=== PATIENT | female | born 2000 | race Caucasian/White ===

== ENCOUNTER 2022-04-02 21:22 | Emergency (ER) | payer BC, MEDICAID, SELFPAY ==
[2022-04-02 21:32] VITALS: BP 133/95; PULSE 94; RESP 18; TEMP 36.3; O2SAT 97; BMI 31.6
--- NOTE | 2022-04-02 21:48 | ED.GENADULT ---
HPI - General Adult General Chief complaint: Unspecified Complaint, Adult Stated complaint: Sore throat, trouble breathing Time Seen by Provider: 04/02/22 21:38 History of Present Illness HPI narrative: Pt is a 21 year old who presents with pharyngitis, l sided ear pain, sinus pressure and cough for one week. No fever or chills. No SOB. Eating and drinking well. Describes symptoms as severe. No symptoms previously. Otherwise very healthy. Related Data Home Medications Medication Instructions Recorded Confirmed albuterol sulfate 90 mcg/actuation inhalation 04/02/22 aerosol inhaler aripiprazole 5 mg tablet mg 04/02/22 methylphenidate HCl 30 mg biphasic mg PO 04/02/22 50-50 capsule,extended release (Ritalin LA) montelukast 10 mg tablet mg 04/02/22 quetiapine 50 mg tablet mg 04/02/22 sertraline 100 mg tablet mg 04/02/22 sertraline 25 mg tablet mg 04/02/22 testosterone enanthate 200 mg/mL mg 04/02/22 intramuscular oil trazodone 150 mg tablet mg 04/02/22 Allergies Allergy/AdvReac Type Severity Reaction Status Date / Time ondansetron [From Zofran] AdvReac Verified 04/02/22 21:36 Review of Systems Status of ROS: Reports: 10 or more systems reviewed and unremarkable except as noted in History and below [facility] Social History Smoking Status: Former smoker How often do you have a drink containing alcohol: monthly or less AUDIT-C Alcohol total score: 1 Non-prescribed substance use: denies use Exam Narrative: Exam Narrative: EXAM GENERAL: Patient appears comfortable and well. EYES: No scleral icterus. ENT: Dullness left tympanic membrane is well as pharyngeal injection THYROID: no thyroid nodules or thyromegaly. LYMPH: No supraclavicular or cervical lymphadenopathy. SKIN: Visible skin seen during exam normal or with benign process only. EXT: No dependent lower extremity pedal edema. HEART: Regular rate and rhythm with no murmurs, rubs, or gallops. LUNGS: Clear to auscultation bilaterally with no crackles or wheezes. ABD: Soft, non tender, non distended. PSYCH: Good eye contact, speech is not pressured. Const: Vital Signs, click to edit/add: Vital Signs - 24 hr 04/02/22 21:32 Temperature 97.4 F L Pulse Rate [Left P ulse Oximeter] 94 Respiratory Rate 18 Blood Pressure [Ri ght Upper Arm] 133/95 H Pulse Oximetry 97 Oxygen Delivery Me thod Room Air Course Vital Signs Vital signs: Initial Vital Signs Temperature 97.4 F L 04/02/22 21:32 Temperature Source Temporal Artery Scan 04/02/22 21:32 Pulse Rate 94 04/02/22 21:32 Respiratory Rate 18 04/02/22 21:32 Blood Pressure 133/95 H 04/02/22 21:32 Blood Pressure Mean 107 04/02/22 21:32 Blood Pressure Position Sitting 04/02/22 21:32 Pulse Oximetry 97 04/02/22 21:32 Oxygen Delivery Method 04/02/22 21:32 Vital Signs Temperature 97.4 F L 04/02/22 21:32 Pulse Rate 94 04/02/22 21:32 Respiratory Rate 18 04/02/22 21:32 Blood Pressure 133/95 H 04/02/22 21:32 Pulse Oximetry 97 04/02/22 21:32 Oxygen Delivery Method 04/02/22 21:32 Temperature 97.4 F L 04/02/22 21:32 Pulse Rate 94 04/02/22 21:32 Respiratory Rate 18 04/02/22 21:32 Blood Pressure 133/95 H 04/02/22 21:32 Pulse Oximetry 97 04/02/22 21:32 Oxygen Delivery Method 04/02/22 21:32 Discharge Plan Discharge Clinical Impression: Acute upper respiratory infection Patient Disposition: Home, Self-Care Condition: Stable Instructions: Upper Respiratory Infection (ED) Additional Instructions: Zithromax as directed Activity Level: No Restrictions Discharge Diet: Regular Prescriptions: No Action sertraline 100 mg tablet Label Comments: TAKE 1 TABLET BY MOUTH EVERY DAY trazodone 150 mg tablet Label Comments: TAKE 1 TABLET BY MOUTH EVERYDAY AT BEDTIME sertraline 25 mg tablet Label Comments: TAKE ONE (1) TABLET BY MOUTH DAILY ALONG WITH 100MG montelukast 10 mg tablet Label Comments: TAKE 1 TABLET BY MOUTH EVERYDAY AT BEDTIME testosterone enanthate 200 mg/mL oil albuterol sulfate 90 mcg/actuation HFA aerosol inhaler INHALATION Label Comments: INHALE 1 TO 2 PUFFS BY MOUTH EVERY 6 HOURS IF NEEDED FOR WHEEZING 1ST CHOICE. aripiprazole 5 mg tablet Label Comments: TAKE 1 TABLET BY MOUTH EVERY DAY methylphenidate HCl [Ritalin LA] 30 mg capsule,ER biphasic 50-50 PO Label Comments: TAKE 1 CAPSULE BY MOUTH EVERY DAY quetiapine 50 mg tablet Label Comments: TAKE 1 TABLET BY MOUTH EVERY DAY Stand Alone Forms: [facility] Info Instructions
== END 2022-04-02 22:05 | disposition home or self-care (01) ==
LOC: ED 21:57
PROVIDERS: Emergency Provider Internal Medicine
DX: J06.9 Acute upper respiratory infection, unspecified (principal)
CPT/HCPCS: 99283

== ENCOUNTER 2022-04-06 22:05 | Emergency (ER) | payer BC, MEDICAID, SELFPAY ==
[2022-04-06 22:22] VITALS: BP 113/81; PULSE 69; RESP 18; TEMP 36.4; O2SAT 97; BMI 30.7
--- NOTE | 2022-04-06 23:28 | ED.GENADULT ---
HPI - General Adult General Time Seen by Provider: 23:29 Date Seen: 04/06/22 Chief complaint: Sore Throat Stated complaint: Sore throat worse Time Seen by Provider: 04/06/22 22:30 Source: patient Mode of arrival: ambulatory History of Present Illness HPI narrative: 21-year-old patient who presents today with upper respiratory symptoms. This started about 5 days ago, had a negative COVID test at home at that time. Was seen in the clinic and started on azithromycin for possible sinus infection. Today is the last day of that and symptoms are not improving. Continued ear pressure, sinus congestion, sore throat and hoarseness, as well as cough. Some nausea vomiting. Intermittent diarrhea. No fevers. Related Data Home Medications Medication Instructions Recorded Confirmed albuterol sulfate 90 mcg/actuation inhalation 04/02/22 aerosol inhaler aripiprazole 5 mg tablet mg 04/02/22 methylphenidate HCl 30 mg biphasic mg PO 04/02/22 50-50 capsule,extended release (Ritalin LA) montelukast 10 mg tablet mg 04/02/22 quetiapine 50 mg tablet mg 04/02/22 sertraline 100 mg tablet mg 04/02/22 sertraline 25 mg tablet mg 04/02/22 testosterone enanthate 200 mg/mL mg 04/02/22 intramuscular oil trazodone 150 mg tablet mg 04/02/22 Allergies Allergy/AdvReac Type Severity Reaction Status Date / Time ondansetron [From Zofran] AdvReac Verified 04/02/22 21:36 Review of Systems Status of ROS: Reports: 10 or more systems reviewed and unremarkable except as noted in History and below PFSH PFSH Social History Smoking Status: Former smoker Do you use any of these nicotine containing products: None Second hand tobacco smoke exposure: No How often do you have a drink containing alcohol: monthly or less How many standard drinks containing alcohol do you have on a typical day: 1 or 2 How often do you have six or more drinks on one occasion: Never AUDIT-C Alcohol total score: 1 Non-prescribed substance use: denies use Exam Const: Vital Signs, click to edit/add: Vital Signs - 24 hr 04/06/22 22:22 Temperature 97.6 F Pulse Rate [Right Pulse Oximeter] 69 Respiratory Rate 18 Blood Pressure [Ri ght Upper Arm] 113/81 Pulse Oximetry 97 Oxygen Delivery Me thod Room Air Documenting provider has reviewed patient's vital signs: yes Common normals: no apparent distress, oriented x3, alert and well nourished HENMT: Common normals: normocephalic, head/scalp atraumatic, external ears normal and external nose normal Head and scalp: normocephalic and atraumatic Nose: external nose normal External ear: external ears normal External auditory canal: other (Cerumen bilaterally) Tympanic membrane: other (Bilateral tympanic membranes bulging and mildly erythematous) Eye: Common normals: PERRL and conjunctivae normal Conjunctiva: conjunctiva(e) normal Pupil: PERRL Neck & C-Spine: Common normals: full ROM, no lymphadenopathy and supple Chest: Common normals: palpation of chest normal Resp: Common normals: normal respiratory effort and clear to auscultation bilaterally Auscultation: clear to auscultation bilaterally Cardio: Common normals: regular rate, regular rhythm and no murmurs Rate: regular rate Rhythm: regular rhythm GI: Common normals: Normal to inspection, nondistended, normoactive bowel sounds present, soft to palpation and non-tender Palpation: soft : Common normals: no CVA tenderness Bladder/kidney exam: no CVA tenderness Back & Pelvis: Common normals: no CVA tenderness and thoracic and lumbar spine normal to inspection Extremity: Common normals: normal to inspection, full ROM and no pedal edema Neuro: Common normals: oriented x3, CN's II-XII intact bilaterally and no focal motor deficits Sensorium/orientation: alert Psych: Common normals: mental status grossly normal Skin: Common normals: no rashes or lesions noted General skin exam: no rashes or lesions noted Course Course Hospital Course: Patient seen examined, prior records reviewed. Differential diagnosis includes but not limited to upper respiratory infection, sinusitis, otitis media, serous otitis, COVID, influenza. Patient with upper respiratory symptoms not improved after azithromycin. Multi-system upper respiratory infection symptoms are more consistent with viral process. Patient will be started on prednisone and continue symptom management. Vital Signs Vital signs: Initial Vital Signs Temperature 97.6 F 04/06/22 22:22 Temperature Source Temporal Artery Scan 04/06/22 22:22 Pulse Rate 69 04/06/22 22:22 Pulse Rhythm 04/06/22 22:22 Pulse Strength 3+ Normal 04/06/22 22:22 Respiratory Rate 18 04/06/22 22:22 Blood Pressure 113/81 04/06/22 22:22 Blood Pressure Mean 91 04/06/22 22:22 Blood Pressure Position Supine 04/06/22 22:22 Pulse Oximetry 97 04/06/22 22:22 Oxygen Delivery Method 04/06/22 22:22 Vital Signs Temperature 97.6 F 04/06/22 22:22 Pulse Rate 69 04/06/22 22:22 Respiratory Rate 18 04/06/22 22:22 Blood Pressure 113/81 04/06/22 22:22 Pulse Oximetry 97 04/06/22 22:22 Oxygen Delivery Method 04/06/22 22:22 Temperature 97.6 F 04/06/22 22:22 Pulse Rate 69 04/06/22 22:22 Respiratory Rate 18 04/06/22 22:22 Blood Pressure 113/81 04/06/22 22:22 Pulse Oximetry 97 04/06/22 22:22 Oxygen Delivery Method 04/06/22 22:22 Medical Decision Making Medical Records Medical records reviewed: Yes I reviewed the patient's medical records Lab Data Lab results reviewed: Yes I reviewed the patient's lab results Discharge Plan Discharge Clinical Impression: Acute upper respiratory infection Patient Disposition: Home, Self-Care Condition: Stable Instructions: Upper Respiratory Infection (DC) Additional Instructions: Continue Tylenol and ibuprofen for body aches. Continue nasal decongestants, Tylenol ibuprofen as needed. Zofran for nausea vomiting. Activity Level: No Restrictions Discharge Diet: Regular Prescriptions: No Action sertraline 100 mg tablet Label Comments: TAKE 1 TABLET BY MOUTH EVERY DAY trazodone 150 mg tablet Label Comments: TAKE 1 TABLET BY MOUTH EVERYDAY AT BEDTIME sertraline 25 mg tablet Label Comments: TAKE ONE (1) TABLET BY MOUTH DAILY ALONG WITH 100MG montelukast 10 mg tablet Label Comments: TAKE 1 TABLET BY MOUTH EVERYDAY AT BEDTIME testosterone enanthate 200 mg/mL oil albuterol sulfate 90 mcg/actuation HFA aerosol inhaler INHALATION Label Comments: INHALE 1 TO 2 PUFFS BY MOUTH EVERY 6 HOURS IF NEEDED FOR WHEEZING 1ST CHOICE. aripiprazole 5 mg tablet Label Comments: TAKE 1 TABLET BY MOUTH EVERY DAY methylphenidate HCl [Ritalin LA] 30 mg capsule,ER biphasic 50-50 PO Label Comments: TAKE 1 CAPSULE BY MOUTH EVERY DAY quetiapine 50 mg tablet Label Comments: TAKE 1 TABLET BY MOUTH EVERY DAY Follow Up/Referrals: Provider,Not a Local [Primary Care Provider] - Stand Alone Forms: [facility] Info Instructions
== END 2022-04-07 00:21 | disposition home or self-care (01) ==
PROVIDERS: Emergency Provider Family Medicine
DX: J06.9 Acute upper respiratory infection, unspecified (principal)
CPT/HCPCS: 99283; 99284

== ENCOUNTER 2022-06-09 05:16 | Outpatient (CLI) | payer BC, MEDICAID, SELFPAY ==
--- OUTSIDE RECORDS SUMMARY | 2022-06-12 11:10 | XMS_ITS | Encounter Summary ---
:2000 Author Organization [employer] Address [address] [address] Phone Care Team Providers Name Role Phone Elsewhere, Pcp Primary Care Provider Unavailable Encounter Details Date Type Department Care Team Description 10/20/2015 Scanned - Medical OS FILMS DEPARTMENT Abstract, Provid er, Reports Social History Tobacco Use Types Packs/Day Years Used Date Never Assessed Sex Assigned at Date Recorded Not on file documented as of this encounter Functional Status Functional Status Response Date of Assessment Patient's Vision Adequate to Yes - wears contacts, pt is 03/2016 Safely Complete Daily Activities nearsighted documented as of this encounter Plan of Treatment Not on filedocumented as of this encounter Procedures Procedure Name Priority Date/Time Associated Diagnosis Comme nts VALPROIC ACID Routine 10/14/2015 documented in this encounter Results VALPROIC ACID (10/14/2015) Narrative This result has an attachment that is no t available. Provider Abstract MD [facility] ORDERABLES documented in this encounter Visit Diagnoses Not on filedocumented in this encounter Care Teams Sales Rep Relationship Specialty Start Date End Date Elsewhere, Pcp PCP - General 10/03/15 documented as of this encounter
--- OUTSIDE RECORDS SUMMARY | 2022-06-12 11:10 | XMS_ITS | Encounter Summary ---
:2000 Author Organization [employer] Address [address] [address] Phone Care Team Providers Name Role Phone Elsewhere, Pcp Primary Care Provider Unavailable Reason for Visit Reason Comments Update [facility] [place] Encounter Details Date Type Department Care Team Description 10/03/2015 Abstract [facility] HIS Abstract, Update ([facility] MD Sidney [facility] [place] [place] [address] [place]) [phone] Social History Tobacco Use Types Packs/Day Years Used Date Never Assessed Sex Assigned at Date Recorded Not on file documented as of this encounter Functional Status Functional Status Response Date of Assessment Patient's Vision Adequate to Yes - wears contacts, pt is 03/2016 Safely Complete Daily Activities nearsighted documented as of this encounter Plan of Treatment Not on filedocumented as of this encounter Visit Diagnoses Not on filedocumented in this encounter Care Teams Detective Narcotics And Vice Relationship Specialty Start Date End Date Elsewhere, Pcp PCP - General 10/03/15 documented as of this encounter
--- OUTSIDE RECORDS SUMMARY | 2022-06-12 11:10 | XMS_ITS | Encounter Summary ---
:2000 Author Organization [employer] Address [address] [address] Phone Care Team Providers Name Role Phone Elsewhere, Pcp Primary Care Provider Unavailable Reason for Visit Reason Comments Update [facility] [place] Encounter Details Date Type Department Care Team Description 06/25/2015 Abstract [facility] HIS Abstract, Update ([facility] [address] [place] [address] MD Sidney [facility] [place] [address] [place]) [phone] Social History Tobacco Use Types Packs/Day Years Used Date Never Assessed Sex Assigned at Date Recorded Not on file documented as of this encounter Plan of Treatment Not on filedocumented as of this encounter Visit Diagnoses Not on filedocumented in this encounter Care Teams Public Policy Analyst Relationship Specialty Start Date End Date Elsewhere, Pcp PCP - General 10/03/15 documented as of this encounter
--- OUTSIDE RECORDS SUMMARY | 2022-06-12 11:10 | XMS_ITS | Clinical Summary ---
:2000 Author Organization [employer] Address [address] [address] Phone Care Team Providers Name Role Phone Elsewhere, Pcp Primary Care Provider Unavailable Allergies No known active allergies Medications Medication Sig Dispensed Refills Start Date End Date Status gabapentin (NEURONTIN) Take 1 Cap by 0 10/07/2015 Active 100 MG mouth two times a capsuleIndications: day. Indications: Aggressive Behavior, Aggressive Agitation Behavior, Agitation traZODone (DESYREL) 50 Take 0.5-1 Tabs by 30 Tab 1 10/07/19 16 Active MG tabletIndications: mouth at bedtime. Insomnia Indications: Trouble Sleeping OLANZapine (ZYPREXA Take 1 Tab by 10 Tab 1 10/07/2015 Active ZYDIS) 5 MG mouth one time a disintegrating day as needed for tabletIndications: Other (Agitation). Irritability, Indications: Aggressive Rages Irritability, Aggressive Rages divalproex ER Take 1 Tab by 30 Tab 1 10/07/2015 A ctive (DEPAKOTE-ER) 500 MG mouth at bedtime. 24 hour Swallow whole; do tabletIndications: not crush or chew. 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 Social anxiety disorder 09/21/2015 Pseudoseizure Depression 10/03/2015 Altered mental status 06/25/2015 Postconcussive syndrome 05/21/2015 Family History Medical History Relation Comments Anxiety Other Family hx. Depression Other Family hx. Relation Status Comments Other Social History Tobacco Use Types Packs/Day Years Used Date Never Assessed Sex Assigned at Date Recorded Not on file Obstetrics History Last Filed Vital Signs Vital Sign Reading Time Taken Comments Blood Pressure 92/53 10/07/2015 7:15 PM DIETETIC TECH Pulse 77 10/07/2015 7:15 PM DIETETIC TECH Temperature 36.6 ??C (97.9 ??F) 10/07/2015 7:15 PM DIETETIC TECH Respiratory Rate 16 10/07/2015 9:00 PM DIETETIC TECH Oxygen Saturation 100% 10/06/2015 8:58 AM DIETETIC TECH Inhaled Oxygen Concentration - - Weight 49.7 kg (109 lb 9.1 oz) 10/03/2015 2:19 PM DIETETIC TECH Height 165.4 cm (5' 5.12) 10/03/2015 2:19 PM DIETETIC TECH Body Mass Index 18.17 10/03/2015 2:19 PM DIETETIC TECH Plan of Treatment Health Maintenance Due Date Last Done Comments Cervical Cancer Screening 2000 Last pap w/ HPV Testing 2000 Last pap w/o HPV Testing 2000 COVID-19 Vaccine (#1) 2000 HPV Vaccine female (Standing 2009 Order) (1 - 2-dose series) Chlamydia Screening 2016 PERTUSSIS (Standing Order) 2019 TETANUS (Standing Order) 2019 Influenza Vaccine Seasonal 04/26/2022 (Standing Order) (#1) Pneumococcal/PCV Vaccine: Aged Out No ilda donnell eligible based on Pediatrics (0-5 yrs) and At-Risk patient's age to complete this Patients (6-64 yrs) (Standing to pic Order) Insurance Payer Benefit Plan Subscriber ID Effective Phone Address Typ e / Group Dates BCBS OTHER BCBS OTHER [id number] 2019-Prese [address] [place] [address] BCBS OTHER BCBS OTHER [id number] 2019-Prese [address] [place] [address] Care Teams Vrt Mechanic Relationship Specialty Start Date End Date Elsewhere, Pcp PCP - General 10/03/15
--- OUTSIDE RECORDS SUMMARY | 2022-06-12 11:10 | XMS_ITS | Encounter Summary ---
:2000 Author Organization [employer] Address [address] [address] Phone Care Team Providers Name Role Phone Elsewhere, Pcp Primary Care Provider Unavailable Reason for Visit Reason Comments Update [employer] [facility] [employer] Encounter Details Date Type Department Care Team Description 09/21/2015 Abstract [facility] HIS Abstract, Update ([employer] [facility] [address] [facility] Provider, [place] [address] Social History Tobacco Use Types Packs/Day Years Used Date Never Assessed Sex Assigned at Date Recorded Not on file documented as of this encounter Plan of Treatment Not on filedocumented as of this encounter Visit Diagnoses Not on filedocumented in this encounter Care Teams Sweatband Drummer Relationship Specialty Start Date End Date Elsewhere, Pcp PCP - General 10/03/15 documented as of this encounter
--- OUTSIDE RECORDS SUMMARY | 2022-06-12 11:10 | XMS_ITS | Encounter Summary ---
:2000 Author Organization [employer] Address [address] [address] Phone Care Team Providers Name Role Phone Elsewhere, Pcp Primary Care Provider Unavailable Reason for Visit Reason Comments Update [facility] Encounter Details Date Type Department Care Team Description 05/21/2015 Abstract [facility] HIS Abstract, Update ([facility] [address] [facility] Provider, [place] [address] [facility]) [phone] Social History Tobacco Use Types Packs/Day Years Used Date Never Assessed Sex Assigned at Date Recorded Not on file documented as of this encounter Plan of Treatment Not on filedocumented as of this encounter Visit Diagnoses Not on filedocumented in this encounter Care Teams Manufacturing Storeperson Relationship Specialty Start Date End Date Elsewhere, Pcp PCP - General 10/03/15 documented as of this encounter
--- OUTSIDE RECORDS SUMMARY | 2022-06-12 11:10 | XMS_ITS | Encounter Summary ---
:2000 Author Organization [employer] Address [address] [address] Phone Care Team Providers Name Role Phone Elsewhere, Pcp Primary Care Provider Unavailable Reason for Visit Reason Comments External Lab Results Encounter Details Date Type Department Care Team Description 02/27/2017 Abstract [facility] HIS Abstract, Provider, External Lab Results [address] [facility] [place] [address] Social History Tobacco Use Types [...] Name Priority Date/Time Associated Diagnosis Comme nts EXTERNAL COMPR MET Routine 02/25/2017 Results f or this PANEL procedure are i n the results section . EXTERNAL HEMOGRAM Routine 02/25/2017 Results fo r this procedure are i n the results section . EXTERNAL TSH Routine 02/25/2017 Results for thi s procedure are i n the results section . documented in this encounter Results EXTERNAL TSH (02/25/2017) athologist Signature EXTERNAL TSH 2.370 0.358 - OUTSIDE 3.740 LABORATORY uIU/mL Provider Abstract MD [facility] Performing Organization Address City/State/ZIP Code Phon e Number OUTSIDE LABORATORY (ABNORMAL) EXTERNAL COMPR MET PANEL (02/25/2017) athologist Signature EXTERNAL SODIUM 141 140 - 148 OUTSIDE mmol/L LABORATORY EXTERNAL 3.9 3.6 - 5.2 OUTSIDE POTASSIUM mmol/L LABORATORY EXTERNAL 104 100 - 108 OUTSIDE CHLORIDE mmol/L LABORATORY EXTERNAL CO2 24 21 - 32 OUTSIDE mmol/L LABORATORY EXTERNAL 80 74 - 106 OUTSIDE GLUCOSE mg/dL LABORATORY EXTERNAL BUN 10 7 - 18 OUTSIDE mg/dL LABORATORY EXTERNAL 0.7 0.6 - 1.0 OUTSIDE CREATININE mg/dL LABORATORY EXTERNAL 8.6 8.5 - 10.1 OUTSIDE CALCIUM mg/dL LABORATORY EXTERNAL 23 12 - 78 OUTSIDE ALT(SGPT) U/L LABORATORY EXTERNAL 38 (A) 15 - 37 OUTSIDE AST(SGOT) U/L LABORATORY Provider Abstract MD [facility] Performing Organization Address City/State/ZIP Code Phon e Number OUTSIDE LABORATORY EXTERNAL HEMOGRAM (02/25/2017) P athologist Signature EXTERNAL WBC 9.7 4.5 - 11.0 OUTSIDE K/uL LABORATORY Comment: (see [facility] lab scanned on 02/24/2017) EXTERNAL RBC 4.81 3.30 - 5.50 M/uL OUTSIDE LA BORATORY EXTERNAL HGB 14.7 12.0 - 15.0 g/dL OUTSIDE LA BORATORY EXTERNAL HCT 41.8 36.0 - 48.0 % OUTSIDE LABOR ATORY EXTERNAL MCV 87 80 - 98 fL OUTSIDE LABORATO RY EXTERNAL MCH 31 27 - 31 pg OUTSIDE LABORATO RY EXTERNAL MCHC 35 32 - 36 % OUTSIDE LABORATO RY EXTERNAL RDW OUTSIDE LABORATOR Y EXTERNAL PLATELETS 158 150 - 400 K/uL OUTSID E LABORATORY Provider Abstract MD [facility] Performing Organization Address City/State/ZIP Code Phon e Number OUTSIDE LABORATORY documented in this encounter Visit Diagnoses Not on filedocumented in this encounter Care Teams Over Short And Damage Clerk Relationship Specialty Start Date End Date Elsewhere, Pcp PCP - General 10/03/15 documented as of this encounter
--- OUTSIDE RECORDS SUMMARY | 2022-06-12 11:10 | XMS_ITS | Encounter Summary ---
:2000 Author Organization [employer] Address [address] [place] [address] Phone Care Team Providers Name Role Phone Elsewhere, Pcp Primary Care Provider Unavailable Encounter Details Date Type Department Care Team Description 02/27/2017 Scanned - Medical [facility] HIS Abstract, Reports [address] [facility] [facility] Provider, [place] [address] Social History Tobacco Use Types [...] Name Priority Date/Time Associated Diagnosis Comme nts OUTSIDE LAB Routine 02/24/2017 documented in this encounter Results OUTSIDE LAB (02/24/2017) Narrative This result has an attachment that is no t available. Provider Abstract MD [facility] documented in this encounter Visit Diagnoses Not on filedocumented in this encounter Care Teams Alley Tender Relationship Specialty Start Date End Date Elsewhere, Pcp PCP - General 10/03/15 documented as of this encounter
== END 2022-06-09 05:17 | disposition home or self-care (01) ==
PROVIDERS: PCP Family Medicine; Visit Provider Family Medicine
DX: J45.901 Unspecified asthma with (acute) exacerbation (principal); R06.09 Other forms of dyspnea; R51.9 Headache, unspecified
CPT/HCPCS: A0425; A0427

== ENCOUNTER 2022-06-09 05:41 | Emergency (ER) | payer BC, MEDICAID, SELFPAY ==
[2022-06-09 05:45] VITALS: BP 116/65; PULSE 107; RESP 22; TEMP 36.7; O2SAT 89; BMI 29.1
--- NOTE | 2022-06-09 06:10 | CRLHL7_ITS ---
For Patients: As a result of the Century Cures Act, medical imaging exams and procedure reports are released immediately into your electronic medical record. You may view this report before your referring provider. If you have questions, please contact your health care provider. INDICATION: Flare-up of asthma TECHNIQUE: Chest 2 views. COMPARISON: October 29, 2020 FINDINGS: Cardiovascular and mediastinum: Heart size and vasculature are normal in caliber and appearance. Mediastinum is within normal limits. Lungs and pleural spaces: Lungs are hyperexpanded. Minimal patchy opacity in the left lower lobe. No sign of pleural effusion. No pneumothorax. Bones and soft tissues: No significant findings. IMPRESSION: Hyperexpanded lungs. Minimal opacity in the left lower lobe may represent atelectasis or infection. Dictated by Anastasia Busby MD @ 06/09/2022 6:46:19 AM (Electronically Signed)
--- NOTE | 2022-06-09 06:18 | ED_ITS ---
HPI - SOB/Dyspnea General Chief Complaint: Shortness of Breath/Dyspnea Stated Complaint: Short of breath Time Seen by Provider: 06/09/22 05:58 Source: patient Limitations: no limitations History of Present Illness HPI Narrative: 22-year-old female to male transition patient presents with dyspnea they became severe this morning, waking him from sleep. Has had upper respiratory infection symptoms with congestion for the past week. No fevers. Cough became productive of mucousy sputum yesterday. Patient has a history of known asthma, states diagnosed about 4 years ago. Is on Singulair and Breo Ellipta for maintenance. States that he ran out of his albuterol inhaler a few days ago and has not been able to get a refill thus yet. Awoke with severe symptoms this morning, unable to catch breath. Did briefly pass out but significant other finished loading the albuterol when patient came to rather quickly was able to start administering albuterol after they had called 911. By the time the neb was finished an EMS arrived, moderate improvement in symptoms already. O2 sats were 92% upon arrival for EMS team. No recent use of steroids, has tolerated these well in the past and reports that these work well. States that when the steroids are stopped, asthma symptoms do tend to worsen. Has never been on Xolair injections or any similar treatment. No prior history of DVT or PE. No pertinent travel or new exposures. Does have a marijuana prescription card.. I do not have any recent spirometry or other similar breathing test review. Patient does endorse a little bit of left-sided chest pain, nonexertional that started yesterday and is intermittent. No prior history of cardiac disease. No prior intubations for asthma. Past medical history is notable for depression, on 3 agents for this, severe persistent asthma. Home medications Breo Ellipta albuterol p.r.n. trazodone weekly testosterone injections Abilify sertraline and Singulair. Primary care provider is Dr. Jacobs at [facility]. Socially with no pertinent travel, marijuana exposure as stated above. Denies any pertinent surgical history. Related Data Home Medications Medication Instructions Recorded Confirmed albuterol sulfate 90 mcg/actuation inhalation 04/02/22 aerosol inhaler aripiprazole 5 mg tablet mg PO DAILY 04/02/22 methylphenidate HCl 30 mg biphasic mg PO 04/02/22 50-50 capsule,extended release (Ritalin LA) montelukast 10 mg tablet mg 04/02/22 quetiapine 50 mg tablet mg 04/02/22 sertraline 100 mg tablet mg 04/02/22 sertraline 25 mg tablet mg 04/02/22 testosterone enanthate 200 mg/mL mg 04/02/22 intramuscular oil trazodone 150 mg tablet mg 04/02/22 Previous Rx's Medication Instructions Recorded albuterol sulfate 90 mcg/actuation 2 puff inhalation 6XD PRN 06/09/22 aerosol inhaler shortness of breath or wheezing #8.5 grams ipratropium 0.5 mg-albuterol 3 mg 3 ml inhalation Q6H PRN #90 mL 06/09/22 (2.5 mg base)/3 mL nebulization soln levofloxacin 500 mg tablet 500 mg PO DAILY #7 tabs 06/09/22 prednisone 20 mg tablet 20 mg PO BID #10 tabs 06/09/22 Allergies Allergy/AdvReac Type Severity Reaction Status Date / Time ondansetron [From Zofran] AdvReac Verified 06/09/22 05:51 Review of Systems Narrative: Notable for the generalized, respiratory and chest symptoms as above, otherwise denies times 12. PFSH PFSH Social History Smoking Status: Former smoker Do you use any of these nicotine containing products: None Second hand tobacco smoke exposure: No How often do you have a drink containing alcohol: monthly or less How many standard drinks containing alcohol do you have on a typical day: 1 or 2 How often do you have six or more drinks on one occasion: Never AUDIT-C Alcohol total score: 1 Non-prescribed substance use: marijuana (any form) Non-prescribed substance use details: medical marijuana card Exam Const: Vital Signs, click to edit/add: Vital Signs - 24 hr 06/09/22 05:45 06/09/22 06:40 06/09/22 07:00 Temperature 98.1 F Pulse Rate [Left P ulse Oximeter] 107 H 107 H 95 Respiratory Rate 22 20 20 Blood Pressure [Ri ght Upper Arm] 116/65 102/67 102/67 Pulse Oximetry 89 96 91 Oxygen Delivery Me thod Room Air Room Air Other: Mildly anxious but behavior appropriate, respectful. Does not appear to be working significantly to breathe at rest. Is able to speak full sentences. HENMT: Common normals: normocephalic and TM's normal bilaterally Head and scalp: normocephalic Tympanic membrane: TM's normal bilaterally Mouth: oral and palatal mucosa normal Throat: posterior oropharynx normal Eye: Common normals: conjunctivae normal and no scleral icterus Conjunctiva: conjunctiva(e) normal Neck & C-Spine: Common normals: full ROM and no lymphadenopathy Resp: Other: Mildly increased respiratory effort with prolongation of expiration about a 3 1 ratio. Expiratory wheeze throughout, overall fairly poor air movement but no obvious crackles. Cardio: Common normals: regular rate, regular rhythm, S1 normal heart sound, S2 normal heart sound, no murmurs and peripheral pulses 2+ throughout Rate: regular rate Rhythm: regular rhythm Heart sounds: S1 normal and S2 normal Peripheral pulses: pulses 2+ throughout GI: Common normals: Normal to inspection, nondistended, normoactive bowel sounds present, soft to palpation, non-tender and no hepatosplenomegaly Palpation: soft and no hepatosplenomegaly Extremity: Common normals: normal capillary refill and no pedal edema Neuro: Speech: speech normal Motor exam: no tremor noted and no movement abnormalities noted Psych: Common normals: speech normal Attitude: engaged Activity/motor behavior: appropriate eye contact Speech: normal speech Insight: insight good Judgement: judgment good Skin: Common normals: no rashes or lesions noted General skin exam: no rashes or lesions noted Course Course Hospital Course: Oxygen saturations varying between 89-93 during my interview with patient. No significant tachypnea. Will start with IM Solu-Medrol, DuoNeb, chest x-ray and swabs. EKG is performed and reassuring. Will re-evaluate. If needed, can place IV start magnesium infusion, consider hospitalization if not improving Vital Signs Vital signs: Initial Vital Signs Temperature 98.1 F 06/09/22 05:45 Temperature Source Temporal Artery Scan 06/09/22 05:45 Pulse Rate 107 H 06/09/22 05:45 Respiratory Rate 22 06/09/22 05:45 Blood Pressure 116/65 06/09/22 05:45 Blood Pressure Mean 82 06/09/22 05:45 Blood Pressure Position Semi-Fowlers 06/09/22 05:45 Pulse Oximetry 89 06/09/22 05:45 Oxygen Delivery Method 06/09/22 05:45 Vital Signs Temperature 98.1 F 06/09/22 05:45 Pulse Rate 107 H 06/09/22 05:45 Respiratory Rate 22 06/09/22 05:45 Blood Pressure 116/65 06/09/22 05:45 Pulse Oximetry 89 06/09/22 05:45 Oxygen Delivery Method 06/09/22 05:45 Temperature 98.1 F 06/09/22 05:45 Pulse Rate 95 06/09/22 07:00 Respiratory Rate 20 06/09/22 07:00 Blood Pressure 102/67 06/09/22 07:00 Pulse Oximetry 91 06/09/22 07:00 Oxygen Delivery Method 06/09/22 07:00 MDM - SOB/Dyspnea MDM Narrative Medical decision making narrative: Re-evaluation 7:10 a.m.: Patient with improved aeration and O2 sats 92% after steroids and DuoNeb. Radiology and lab results discussed. Will start Levaquin. Will need antibiotics and oral prednisone upon discharge as well. Plan of care discussed, work note written. Patient feeling markedly better. See discharge instructions. Differential Diagnosis Differential diagnosis: Likely acute exacerbation of chronic obstructive airways disease, community acquired pneumonia, asthma with exacerbation and pulmonary embolism Medical Records Attestation: I reviewed the patient's medical records. Lab Data Attestation: I reviewed the patient's lab results. Lab results narrative: Negative for COVID, influenza Labs: Lab Results 06/09/22 Range/Units 06:10 SARS-CoV-2 (PCR) Negative SARS-CoV-2 (Negative) Influenza Type A (PCR) Negative PCR FLU A (Negative) Influenza Type B (PCR) Negative PCR FLU B (Negative) Imaging Data Chest x-ray: Attestation: I have reviewed the pertinent imaging results. My impression: Hyperinflation with asthma and left lower lobe infiltrate per my interpretation, confirmed with radiology report ECG Data Interpretation: EKG showing normal sinus rhythm with no significant ST or T-wave abnormalities, good R-wave progression, normal axis. No signs of ischemia Discharge Plan Discharge Clinical Impression: Community acquired pneumonia, Asthma with acute exacerbation Patient Disposition: Home w/ Parent or Adult Condition: Improved Instructions: Asthma (ED), Community Acquired Pneumonia (DC) Additional Instructions: There are signs of new pneumonia on the left side flaring up her asthma. It is important you continue all of your inhalers. I have sent a refill of the albuterol to use as needed as well. We will start you on prednisone 20 mg twice daily, your next dose will be this afternoon. For antibiotics, I recommend levofloxacin 500 mg once daily. You already been given today's dose and will need your next dose 1st thing tomorrow morning. This will be for 7 days. I would like for you to make a followup with her primary care provider Saturday or Saturday to make sure that things are improving. Keep using her albuterol nebulizer as often as needed, up to every hour if necessary. Come back to the emergency department if these treatments are not working, he was struggling to breathe and or you have significant worsening of symptoms. Activity Level: Activity as Tolerated Discharge Diet: Regular Prescriptions: New levofloxacin 500 mg tablet 500 mg PO DAILY Qty: 7 0RF Rx Instructions: Start 10/16 am albuterol sulfate 90 mcg/actuation HFA aerosol inhaler 2 puff inhalation 6XD PRN (Reason: shortness of breath or wheezing) Qty: 8.5 1RF prednisone 20 mg tablet 20 mg PO BID Qty: 10 0RF ipratropium-albuterol 0.5 mg-3 mg(2.5 mg base)/3 mL solution for nebulization 3 ml inhalation Q6H PRNQty: 90 1RF No Action sertraline 100 mg tablet Label Comments: TAKE 1 TABLET BY MOUTH EVERY DAY trazodone 150 mg tablet Label Comments: TAKE 1 TABLET BY MOUTH EVERYDAY AT BEDTIME sertraline 25 mg tablet Label Comments: TAKE ONE (1) TABLET BY MOUTH DAILY ALONG WITH 100MG montelukast 10 mg tablet Label Comments: TAKE 1 TABLET BY MOUTH EVERYDAY AT BEDTIME testosterone enanthate 200 mg/mL oil albuterol sulfate 90 mcg/actuation HFA aerosol inhaler INHALATION Label Comments: INHALE 1 TO 2 PUFFS BY MOUTH EVERY 6 HOURS IF NEEDED FOR WHEEZING 1ST CHOICE. aripiprazole 5 mg tablet PO DAILY Label Comments: TAKE 1 TABLET BY MOUTH EVERY DAY methylphenidate HCl [Ritalin LA] 30 mg capsule,ER biphasic 50-50 PO Label Comments: TAKE 1 CAPSULE BY MOUTH EVERY DAY quetiapine 50 mg tablet Label Comments: TAKE 1 TABLET BY MOUTH EVERY DAY Follow Up/Referrals: Provider,Not a Local [Referring] - Stand Alone Forms: [facility] Info Instructions
[2022-06-09] MEDS: METHYLPREDNISOLONE SOD SUCC 40 MG/ML 125 MG IM (06:29)
[2022-06-09] MEDS: IPRAT-ALBUT 0.5-2.5 MG/3 ML NEB 1 NEB IH (06:29)
[2022-06-09 06:40] VITALS: BP 102/67; PULSE 107; RESP 20; O2SAT 96
[2022-06-09 07:00] VITALS: BP 102/67; PULSE 95; RESP 20; O2SAT 91
[2022-06-09 07:02] LABS: PCR FLU A Negative PCR FLU A (Negative); PCR FLU B Negative PCR FLU B (Negative)
[2022-06-09 07:05] LABS: SARS PCR* Negative SARS-CoV-2 (Negative)
[2022-06-09] MEDS: levoFLOXacin 500 MG TABLET PO (07:20)
== END 2022-06-09 08:21 | disposition home or self-care (01) ==
PROVIDERS: Emergency Provider Family Medicine; PCP Family Medicine
DX: J45.901 Unspecified asthma with (acute) exacerbation (principal); J18.9 Pneumonia, unspecified organism
CPT/HCPCS: 71046; 87631; 87635; 87804; 93005; 94640; 96372; 99283; 99285; A9270; J2920

== ENCOUNTER 2022-06-11 10:22 | Emergency (ER) | payer BC, MEDICAID, SELFPAY ==
[2022-06-11 10:28] VITALS: BP 97/63; PULSE 76; TEMP 36.6; O2SAT 99; BMI 29.1
--- NOTE | 2022-06-11 11:14 | CRLHL7_ITS ---
For Patients: As a result of the Century Cures Act, medical imaging exams and procedure reports are released immediately into your electronic medical record. You may view this report before your referring provider. If you have questions, please contact your health care provider. INDICATION: Cough vomit TECHNIQUE: Chest 2 views. COMPARISON: June 09, 2022 FINDINGS: Cardiovascular and mediastinum: Heart size and vasculature are normal in caliber and appearance. Lungs and pleural spaces: Lungs are hyperexpanded but clear. No sign of focal consolidation. No sign of pleural effusion. No pneumothorax. Bones and soft tissues: No significant findings. IMPRESSION: The lungs are hyperexpanded. Previously mentioned minimal opacity at the left lower lobe is no longer visualized. Dictated by Nabil Santos MD @ 06/11/2022 12:39:52 PM (Electronically Signed)
[2022-06-11] MEDS: 0.9 % SODIUM CHLORIDE 1000 ml 1,000 ML IV (11:40)
[2022-06-11] MEDS: LORazepam 2 MG/ML inj 0.5 MG IVP (11:40)
[2022-06-11] MEDS: diphenhydrAMINE 50 MG/ML inj 25 MG IVP (11:41)
[2022-06-11] MEDS: METOCLOPRAMIDE HCL 10 MG in 0.9 % SODIUM CHLORIDE 100 ml 100 ML 306 MG IVPB (11:47)
[2022-06-11 11:58] LABS: Basophils Percent Auto 0.1 % (0.0-3.0); Eosinophils Percent Auto 0.3 % (0.0-7.0); Hematocrit 52.9 % (33.0-51.0); Hemoglobin* 17.5 gm/dL (12.0-16.0); Immature Granulocytes Abs Auto 0.09 K/uL (0.00-0.30); Lymphocytes Percent Auto 13.6 % (20-44); Mean Corpuscular HGB Conc 33 gm/dL (32-36); Mean Corpuscular Hemoglobin 28 pg (26-34); Mean Corpuscular Volume 85 fL (80-100); Monocytes Percent Auto 7.6 % (0.0-11.0); Platelet Count* 325 K/uL (140-440); White Blood Count* 23.66 K/uL (4.50-11.00)
[2022-06-11 12:02] LABS: Slide Review Reflex No
[2022-06-11 12:12] LABS: Chloride* 103 mmol/L (96-114)
[2022-06-11 12:13] LABS: Potassium* 3.7 mmol/L (3.6-5.1); Sodium* 142 mmol/L (135-149)
[2022-06-11 12:15] LABS: Creatinine* 0.8 mg/dL (0.5-1.5); Est. Creatinine Clearance* 103.26; Estimated Glomerular Filt Rate 107 ml/min
[2022-06-11 12:16] LABS: Blood Urea Nitrogen* 14 mg/dL (5-24); Calcium* 9.3 mg/dL (8.4-10.6); Carbon Dioxide* 27 mmol/L (20-32); Glucose* 89 mg/dL (60-115)
[2022-06-11 12:33] LABS: PCR FLU A Negative PCR FLU A (Negative); PCR FLU B Negative PCR FLU B (Negative); PCR RSV Negative PCR RSV (Negative)
[2022-06-11 12:37] LABS: SARS PCR* Negative SARS-CoV-2 (Negative)
[2022-06-11 13:30] VITALS: BP 107/71; PULSE 68; O2SAT 97
--- NOTE | 2022-06-11 13:35 | ED_ITS ---
HPI - General Adult General Date Seen: 06/11/22 Chief complaint: Shortness of Breath/Dyspnea Stated complaint: Vomiting, diarrhea, short of breath Time Seen by Provider: 06/11/22 10:53 Source: patient Limitations: no limitations History of Present Illness HPI narrative: This 22-year-old female who is transitioning to male, presents here with vomiting, abdominal discomfort, and diarrhea. Diarrhea is been for the last 2 days, vomiting is been for the last week or so, since he got his marijuana card is been smoking marijuana more regularly, he recently was here in the hospital, diagnosed with a left lower lobe pneumonia, started on Levaquin, was on steroids previous to this for asthma also. Diarrhea is been 6-7 times, no blood within it, no previous history of C diff, drinking normally, no excessive alcohol intake. Denies any dysuria frequency, no previous abdominal surgeries, Related Data Home Medications Medication Instructions Recorded Confirmed albuterol sulfate 90 mcg/actuation inhalation 04/02/22 aerosol inhaler aripiprazole 5 mg tablet 5 mg PO DAILY 04/02/22 06/11/22 methylphenidate HCl 30 mg biphasic 30 mg PO DAILY 04/02/22 06/11/22 50-50 capsule,extended release (Ritalin LA) montelukast 10 mg tablet 10 mg HS 04/02/22 quetiapine 50 mg tablet 50 mg PO DAILY 04/02/22 06/11/22 sertraline 100 mg tablet 100 mg PO DAILY 04/02/22 06/11/22 sertraline 25 mg tablet 25 mg PO Q24H 04/02/22 06/11/22 testosterone enanthate 200 mg/mL 200 mg IM .weekly 04/02/22 06/11/22 intramuscular oil trazodone 150 mg tablet 150 mg PO HS 04/02/22 06/11/22 gabapentin 100 mg capsule 100 mg PO TID 06/11/22 06/11/22 Previous Rx's Medication Instructions Recorded albuterol sulfate 90 mcg/actuation 2 puff inhalation 6XD PRN 06/09/22 aerosol inhaler shortness of breath or wheezing #8.5 grams ipratropium 0.5 mg-albuterol 3 mg 3 ml inhalation Q6H PRN #90 mL 06/09/22 (2.5 mg base)/3 mL nebulization soln levofloxacin 500 mg tablet 500 mg PO DAILY #7 tabs 06/09/22 prednisone 20 mg tablet 20 mg PO BID #10 tabs 06/09/22 Allergies Allergy/AdvReac Type Severity Reaction Status Date / Time ondansetron [From Zofran] AdvReac Verified 06/11/22 10:33 Review of Systems Status of ROS: Reports: 10 or more systems reviewed and unremarkable except as noted in History and below PFSH PFS Social History Smoking Status: Former smoker Do you use any of these nicotine containing products: None Second hand tobacco smoke exposure: No How often do you have a drink containing alcohol: monthly or less How many standard drinks containing alcohol do you have on a typical day: 1 or 2 How often do you have six or more drinks on one occasion: Never AUDIT-C Alcohol total score: 1 Non-prescribed substance use: marijuana (any form) Non-prescribed substance use details: medical marijuana card Exam Narrative: Exam Narrative: Patient is seen in room 2 in no apparent distress, vital signs are reviewed. Pupils are equal round reactive to light there is no scleral icterus redness TMs are normal oropharynx normal there is no adenopathy anterior posterior chains hydration status excellent neck is supple full range of motion there is no lymphadenopathy anterior posterior chains, cranial nerves 3-12 are normal. No meningismus. JVP flat, chest is clear bilaterally with occasional wheezes, on forced expiration there is no crackles noted heart sounds no clicks murmurs or gallops, S1-S2 are normal. Abdomen shows some mild tenderness in the right lower quadrant on deep palpation. No peritoneal signs no organomegaly bowel sounds are quiet but otherwise normal. There is no CVA tenderness, moves all extremities independently and well. No rashes, cap refill normal, pulses normal and neurological exam is nonfocal, and symmetrical bilaterally with normal power. Const: Vital Signs, click to edit/add: Vital Signs - 24 hr 06/11/22 10:28 06/11/22 13:30 06/11/22 14:00 Temperature 97.9 F Pulse Rate [Right Pulse Oximeter] 76 68 72 Blood Pressure [Ri ght Upper Arm] 97/63 107/71 111/65 Pulse Oximetry 99 97 97 Oxygen Delivery Me thod Room Air Room Air Room Air 06/11/22 14:30 06/11/22 15:30 Temperature Pulse Rate [Right Pulse Oximeter] 61 65 Blood Pressure [Ri ght Upper Arm] 101/69 Pulse Oximetry 96 98 Oxygen Delivery Me thod Room Air Room Air Documenting provider has reviewed patient's vital signs: yes Course Course Hospital Course: Discussed with patient he is having no diarrhea feels better after fluids, discussed the results of the CT scan which may be show mild colitis, at this point we will discharge him home we will continue medications, he has not been able to give us a sample, as did have diarrhea actually had a form stools, so I think this is a low likelihood this is C diff. he will follow-up if any further issues or concerns. Vital Signs Vital signs: Initial Vital Signs Temperature 97.9 F 06/11/22 10:28 Temperature Source Temporal Artery Scan 06/11/22 10:28 Pulse Rate 76 06/11/22 10:28 Blood Pressure 97/63 06/11/22 10:28 Blood Pressure Mean 74 06/11/22 10:28 Blood Pressure Position Sitting 06/11/22 10:28 Pulse Oximetry 99 06/11/22 10:28 Oxygen Delivery Method 06/11/22 10:28 Vital Signs Temperature 97.9 F 06/11/22 10:28 Pulse Rate 76 06/11/22 10:28 Blood Pressure 97/63 06/11/22 10:28 Pulse Oximetry 99 06/11/22 10:28 Oxygen Delivery Method 06/11/22 10:28 Temperature 97.9 F 06/11/22 10:28 Pulse Rate 65 06/11/22 15:30 Blood Pressure 101/69 06/11/22 14:30 Pulse Oximetry 98 06/11/22 15:30 Oxygen Delivery Method 06/11/22 15:30 Medical Decision Making [facility] Narrative Medical decision making narrative: During the evaluation of this patient I considered multiple differential diagnosis including life-threatening differentials which are appendicitis, aortic aneurysm, mesenteric ischemia, bowel perforation, ectopic , volvulus and bowel obstruction, other differential diagnosis include but are not limited to inflammatory bowel disease, cholecystitis, pancreatitis, hepatitis, gastritis, GERD, diverticulitis, peptic ulcer disease, pyelonephritis/UTI, renal colic/stone, pelvic inflammatory disease, cervicitis, endometritis, intrauterine , dysfunctional uterine bleeding, ovarian cyst/torsion, spontaneous as well as other etiologies Lab Data Labs: Lab Results 06/11/22 06/11/22 06/11/22 Range/Units 11:45 11:45 11:45 WBC 23.66 H (4.50-11.00) K/uL RBC 6.20 H (4.00-5.20) m/uL Hgb 17.5 H (12.0-16.0) gm/dL Hct 52.9 H (33.0-51.0) % MCV 85 (80-100) fL MCH 28 (26-34) pg MCHC 33 (32-36) gm/dL RDW Coeff of Adriano 13.0 (11.5-15.5) % Plt Count 325 (140-440) K/uL Neut % (Auto) 78.0 H (42.0-72.0) % Lymph % (Auto) 13.6 L (20-44) % Vilas % (Auto) 7.6 (0.0-11.0) % Eos % (Auto) 0.3 (0.0-7.0) % Baso % (Auto) 0.1 (0.0-3.0) % Neut # (Auto) 18.50 H (1.7-7.0) K/uL Lymph # (Auto) 3.20 H (0.90-2.90) K/uL Vilas # (Auto) 1.80 H (0.00-0.90) K/UL Eos # (Auto) 0.10 (0.00-0.50) K/uL Baso # (Auto) 0.00 (0.00-0.30) K/uL Abs Immat Gran (auto) 0.09 (0.00-0.30) K/uL Sodium 142 (135-149) mmol/L Potassium 3.7 (3.6-5.1) mmol/L Chloride 103 (96-114) mmol/L Carbon Dioxide 27 (20-32) mmol/L BUN 14 (5-24) mg/dL Creatinine 0.8 (0.5-1.5) mg/dL Estimated Creat Clear 103.26 Estimated GFR 107 ml/min Glucose 89 (60-115) mg/dL Calcium 9.3 (8.4-10.6) mg/dL SARS-CoV-2 (PCR) Negative SARS-CoV-2 (Negative) Influenza Type A (PCR) Negative PCR FLU A (Negative) Influenza Type B (PCR) Negative PCR FLU B (Negative) RSV (PCR) Negative PCR RSV (Negative) Imaging Data CT scan - abdomen: My impression: No acute findings Radiologist's impression: Patient: TENA ALVARADO Facility:?[facility] Patient ID:?[id number] Site Patient ID:?[id number]. Site :?[id number] Study:?CT Abdomen/Pelvis 89CC ISOVUE 370-06/11/2022 3:15:06 PM Ordering Physician:Aminta Bates Final Report: INDICATION: ABD PAIN. RLQ PAIN, ELEVATED WBC TECHNIQUE: CT abdomen and pelvis with 89 cc Omnipaque 370 IV contrast. COMPARISON: None. FINDINGS: The liver is normal in size, shape and attenuation. Gallbladder and biliary tree are normal. The spleen, adrenal glands and pancreas are within normal limits. The kidneys are unremarkable. Mild wall thickening throughout the colon most notably the cecum and ascending colon as well as the terminal ileum. Findings suspicious for nonspecific infectious/inflammatory enterocolitis. There are few subcentimeter right lower quadrant lymph nodes are nonspecific and likely reactive. The appendix appears unremarkable. No significant free fluid and no free air. Pelvic organs are unremarkable. The lower chest is unremarkable. IMPRESSION: Mild wall thickening throughout the colon most notably the cecum and ascending colon as well as the terminal ileum. Findings suspicious for nonspecific infectious/inflammatory enterocolitis. (Inflammatory bowel disease is a consideration) There are few subcentimeter right lower quadrant lymph nodes are nonspecific and likely reactive. The appendix appears unremarkable. Please note that all CT scans at this facility use dose modulation, iterative reconstruction, and/or weight-based dosing when appropriate to reduce radiation dose to as low as reasonably achievable. Dictated by Nabil Santos MD @ 06/11/2022 3:38:07 PM (Electronic Signature) Patient: TENA ALVARADO Facility:?[facility] Patient ID:?[id number] Site Patient ID:?[id number]. Site :?2000 Study:?XRay Chest 2V-06/11/2022 12:15:05 PM Ordering Physician:Aminta Bates Final Report: INDICATION: Cough vomit TECHNIQUE: Chest 2 views. COMPARISON: June 09, 2022 FINDINGS: Cardiovascular and mediastinum: Heart size and vasculature are normal in caliber and appearance. Lungs and pleural spaces: Lungs are hyperexpanded but clear. No sign of focal consolidation. No sign of pleural effusion. No pneumothorax. Bones and soft tissues: No significant findings. IMPRESSION: The lungs are hyperexpanded. Previously mentioned minimal opacity at the left lower lobe is no longer visualized. Dictated by Nabil Santos MD @ 06/11/2022 12:39:52 PM (Electronic Signature) Discharge Plan Discharge Clinical Impression: Shortness of breath, Diarrhea Patient Disposition: Home, Self-Care Condition: Stable Instructions: Acute Diarrhea (ED), Acute Abdominal Pain (DC) Additional Instructions: Home rest use of yogurt, cheese, and other probiotics. Worsening diarrhea recommend follow-up with primary care, as you have had no diarrhea here. I think it would be reason to watch this, continue antibiotics as directed Prescriptions: No Action sertraline 100 mg tablet 100 mg PO DAILY Label Comments: TAKE 1 TABLET BY MOUTH EVERY DAY trazodone 150 mg tablet 150 mg PO HS Label Comments: TAKE 1 TABLET BY MOUTH EVERYDAY AT BEDTIME sertraline 25 mg tablet 25 mg PO Q24H Label Comments: TAKE ONE (1) TABLET BY MOUTH DAILY ALONG WITH 100MG montelukast 10 mg tablet 10 mg HS Label Comments: TAKE 1 TABLET BY MOUTH EVERYDAY AT BEDTIME testosterone enanthate 200 mg/mL oil 200 mg IM .weekly albuterol sulfate 90 mcg/actuation HFA aerosol inhaler INHALATION Label Comments: INHALE 1 TO 2 PUFFS BY MOUTH EVERY 6 HOURS IF NEEDED FOR WHEEZING 1ST CHOICE. aripiprazole 5 mg tablet 5 mg PO DAILY Label Comments: TAKE 1 TABLET BY MOUTH EVERY DAY methylphenidate HCl [Ritalin LA] 30 mg capsule,ER biphasic 50-50 30 mg PO DAILY Label Comments: TAKE 1 CAPSULE BY MOUTH EVERY DAY quetiapine 50 mg tablet 50 mg PO DAILY Label Comments: TAKE 1 TABLET BY MOUTH EVERY DAY levofloxacin 500 mg tablet 500 mg PO DAILY Qty: 7 0RF Rx Instructions: Start 10/16 am albuterol sulfate 90 mcg/actuation HFA aerosol inhaler 2 puff inhalation 6XD PRN (Reason: shortness of breath or wheezing) Qty: 8.5 1RF prednisone 20 mg tablet 20 mg PO BID Qty: 10 0RF ipratropium-albuterol 0.5 mg-3 mg(2.5 mg base)/3 mL solution for nebulization 3 ml inhalation Q6H PRNQty: 90 1RF gabapentin 100 mg capsule 100 mg PO TID Follow Up/Referrals: Shanthi Delgadillo MD [Primary Care Provider] - Stand Alone Forms: [employer] Info Instructions
--- NOTE | 2022-06-11 13:57 | CRLHL7_ITS ---
For Patients: As a result of the Century Cures Act, medical imaging exams and procedure reports are released immediately into your electronic medical record. You may view this report before your referring provider. If you have questions, please contact your health care provider. INDICATION: ABD PAIN. RLQ PAIN, ELEVATED WBC TECHNIQUE: CT abdomen and pelvis with 89 cc Omnipaque 370 IV contrast. COMPARISON: None. FINDINGS: The liver is normal in size, shape and attenuation. Gallbladder and biliary tree are normal. The spleen, adrenal glands and pancreas are within normal limits. The kidneys are unremarkable. Mild wall thickening throughout the colon most notably the cecum and ascending colon as well as the terminal ileum. Findings suspicious for nonspecific infectious/inflammatory enterocolitis. There are few subcentimeter right lower quadrant lymph nodes are nonspecific and likely reactive. The appendix appears unremarkable. No significant free fluid and no free air. Pelvic organs are unremarkable. The lower chest is unremarkable. IMPRESSION: Mild wall thickening throughout the colon most notably the cecum and ascending colon as well as the terminal ileum. Findings suspicious for nonspecific infectious/inflammatory enterocolitis. (Inflammatory bowel disease is a consideration) There are few subcentimeter right lower quadrant lymph nodes are nonspecific and likely reactive. The appendix appears unremarkable. Please note that all CT scans at this facility use dose modulation, iterative reconstruction, and/or weight-based dosing when appropriate to reduce radiation dose to as low as reasonably achievable. Dictated by Nabil Santos MD @ 06/11/2022 3:38:07 PM (Electronically Signed)
[2022-06-11 14:00] VITALS: BP 111/65; PULSE 72; O2SAT 97
[2022-06-11 14:30] VITALS: BP 101/69; PULSE 61; O2SAT 96
[2022-06-11 15:30] VITALS: PULSE 65; O2SAT 98
[2022-06-11 16:00] VITALS: BP 106/65; PULSE 72; O2SAT 100
[2022-06-11 20:46] LABS: CDIFFEPI 027 PRESUMPTIVE POSITIVE (Negative)
[2022-06-11 20:47] LABS: C.Difficile POSITIVE (Negative)
--- NOTE | 2022-06-11 21:01 | ED.NURSE ---
dr mena aware that stool specimen was positive for c dif. misael was called and aware to stop current antibiotic (levoquin) and vancomycin will be called [facility] tomorrow, will start this then. note to be off work for 5 days, as he works at [employer]. will picker note tomorrow am. was very thankful for the information and note.
--- NOTE | 2022-06-12 09:37 | ED.NURSE ---
Per MD mena - pt postive for Cdiff. Contacted pt and informed. Told to stop current abx. Started on vanco QID X14 days. New rx called for pharm.
== END 2022-06-11 16:15 | disposition home or self-care (01) ==
PROVIDERS: Emergency Provider Family Medicine; PCP Family Medicine
DX: R06.02 Shortness of breath (principal); R11.10 Vomiting, unspecified; R19.7 Diarrhea, unspecified; Z87.891 Personal history of nicotine dependence; Z20.822 Contact with and (suspected) exposure to COVID-19
CPT/HCPCS: 36415; 71046; 74177; 80048; 85025; 87493; 87502; 87634; 87635; 96361; 96374; 96375; 99284; 99285; J1200; J2060; J2765; J7030; Q9967

== ENCOUNTER 2022-06-15 08:18 | Observation (INO) | payer BC, MEDICAID, SELFPAY ==
[2022-06-15] VITALS (8 sets, daily range): BP systolic 101–119; BP diastolic 70–80; PULSE 63–90; RESP 16–20; TEMP 36.1–36.4; O2SAT 94–98; BMI 29.1; BMI 29.2
--- NOTE | 2022-06-15 08:28 | ED_ITS ---
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 Socrates had a respiratory infection that ended up in pneumonia and was treated with prednisone and Levaquin. Developed C difficile colitis and was in the ER on June 12. CT showed some colitis. Jace presented with nausea vomiting and diarrhea with abdominal pain at that visit. Stool was collected but did not come back later until that evening reported the at 9:00 p.m. that night. Vancomycin was started the next day per patient report. Thus, patient has been on vancomycin since the . He still reports that he has had some vomiting throughout this but today was large profuse vomiting this morning. He has not had any fevers but has felt hot at times. Nausea is not significant at this point, he really feels like he wants to drink. Will allow some sips of clears. Zofran both IV and oral have historically made him vomit more. Stool is very watery, no blood noted. He feels he is much better as far as respiratory symptoms. MD complaint: Ongoing complications with C difficile colitis Related Data Home Medications Medication Instructions Recorded Confirmed albuterol sulfate 90 mcg/actuation inhalation 04/02/22 aerosol inhaler aripiprazole 5 mg tablet 5 mg PO DAILY 04/02/22 06/11/22 methylphenidate HCl 30 mg biphasic 30 mg PO DAILY 04/02/22 06/11/22 50-50 capsule,extended release (Ritalin LA) montelukast 10 mg tablet 10 mg HS 04/02/22 quetiapine 50 mg tablet 50 mg PO DAILY 04/02/22 06/11/22 sertraline 100 mg tablet 100 mg PO DAILY 04/02/22 06/11/22 sertraline 25 mg tablet 25 mg PO Q24H 04/02/22 06/11/22 testosterone enanthate 200 mg/mL 200 mg IM .weekly 04/02/22 06/11/22 intramuscular oil trazodone 150 mg tablet 150 mg PO HS 04/02/22 06/11/22 gabapentin 100 mg capsule 100 mg PO TID 06/11/22 06/11/22 Previous Rx's Medication Instructions Recorded albuterol sulfate 90 mcg/actuation 2 puff inhalation 6XD PRN 06/09/22 aerosol inhaler shortness of breath or wheezing #8.5 grams ipratropium 0.5 mg-albuterol 3 mg 3 ml inhalation Q6H PRN #90 mL 06/09/22 (2.5 mg base)/3 mL nebulization soln levofloxacin 500 mg tablet 500 mg PO DAILY #7 tabs 06/09/22 prednisone 20 mg tablet 20 mg PO BID #10 tabs 06/09/22 Allergies Allergy/AdvReac Type Severity Reaction Status Date / Time ondansetron [From Zofran] AdvReac Verified 06/11/22 10:33 Review of Systems Status of ROS: Reports: 10 or more systems reviewed and unremarkable except as noted in History and below PFSH PFSH Social History Smoking Status: Former smoker Do you use any of these nicotine containing products: None Second hand tobacco smoke exposure: No How often do you have a drink containing alcohol: monthly or less How many standard drinks containing alcohol do you have on a typical day: 1 or 2 How often do you have six or more drinks on one occasion: Never AUDIT-C Alcohol total score: 1 Non-prescribed substance use: marijuana (any form) Non-prescribed substance use details: medical marijuana card Exam Const: Vital Signs, click to edit/add: Vital Signs - 24 hr 06/15/22 08:36 Temperature 97.0 F L Pulse Rate [Right Pulse Oximeter] 90 Respiratory Rate 20 Blood Pressure [Le ft Upper Arm] 119/80 Pulse Oximetry 97 Oxygen Delivery Me thod Room Air Documenting provider has reviewed patient's vital signs: yes Common normals: no apparent distress, average body habitus, oriented x3, no limitations, healthy appearing and alert General appearance: cooperative, comfortable, well kempt and well developed HENMT: Common normals: normocephalic, head/scalp atraumatic and hearing grossly normal bilaterally Head and scalp: normocephalic and atraumatic Eye: Common normals: PERRL, EOMs intact bilaterally, conjunctivae normal and no scleral icterus Conjunctiva: conjunctiva(e) normal Pupil: PERRL Neck & C-Spine: Common normals: full ROM, no lymphadenopathy, supple, no meningeal signs, no JVD and thyroid normal Thyroid: thyroid normal Resp: Common normals: normal respiratory effort, no retractions, no use of accessory muscles and clear to auscultation bilaterally Auscultation: clear to auscultation bilaterally Cardio: Common normals: no JVD, regular rate, regular rhythm, S1 normal heart sound, S2 normal heart sound, no gallops, no clicks and no murmurs Rate: regular rate Rhythm: regular rhythm Heart sounds: S1 normal and S2 normal GI: Common normals: Normal to inspection, nondistended, normoactive bowel sounds present, soft to palpation, no hepatosplenomegaly and no masses Palpation: soft and no hepatosplenomegaly Other: Mild diffuse tenderness of the abdomen with out any rebound or guarding. Bowel sounds are present but somewhat hypoactive. Extremity: Common normals: normal to inspection, full ROM, normal capillary refill, no joint enlargement, no clubbing, cyanosis or edema, no calf tenderness and no pedal edema Neuro: Common normals: oriented x3 Sensorium/orientation: alert Meningeal signs: no meningeal signs Speech: speech normal Gait (neuro): normal gait Psych: Appearance: well kempt Course Course Hospital Course: IV will be initiated, will give a L of fluids, 15 mg IV Toradol for abdominal discomfort. I do not feel CT imaging is necessary at this time but will do flat and upright just to ensure that there is not an ileus picture. Will check a full complement of labs and see where we are trending. We will get the screening COVID PCR in case hospitalization needs to be considered. Reevaluation(s) Reevaluation #1: Reviewed with patient that hospitalization is indicated. Pharmacy has the Flagyl IV dose down here already and nursing staff will be starting that. We have reviewed these severe disease indications. Patient's mom is now here and feels that he is not able to really support himself through this at home currently. Patient is going slow but is tolerating sips of water. Time: 09:55 Consultations Consultation #1: Have spoken with the hospitalist Dr. Scott regarding this patient. This patient is falling into severe disease for C difficile colitis. I had already spoken to Pharmacy to see if they had the fidaxomicin but we do not. They recommended increasing the oral vancomycin dosing in an adding an IV Flagyl. I have reviewed this with the hospitalist, she will have me order Flagyl 500 mg IV now and she will review further treatment options. Time: 09:38 Vital Signs Vital signs: Initial Vital Signs Temperature 97.0 F L 06/15/22 08:36 Temperature Source Temporal Artery Scan 06/15/22 08:36 Pulse Rate 90 06/15/22 08:36 Respiratory Rate 20 06/15/22 08:36 Blood Pressure 119/80 06/15/22 08:36 Blood Pressure Mean 93 06/15/22 08:36 Blood Pressure Position Sitting 06/15/22 08:36 Pulse Oximetry 97 06/15/22 08:36 Oxygen Delivery Method 06/15/22 08:36 Vital Signs Temperature 97.0 F L 06/15/22 08:36 Pulse Rate 90 06/15/22 08:36 Respiratory Rate 20 06/15/22 08:36 Blood Pressure 119/80 06/15/22 08:36 Pulse Oximetry 97 06/15/22 08:36 Oxygen Delivery Method 06/15/22 08:36 Temperature 97.0 F L 06/15/22 08:36 Pulse Rate 90 06/15/22 08:36 Respiratory Rate 20 06/15/22 08:36 Blood Pressure 119/80 06/15/22 08:36 Pulse Oximetry 97 06/15/22 08:36 Oxygen Delivery Method 06/15/22 08:36 Medical Decision Making Lab Data Lab results reviewed: Yes I reviewed the patient's lab results Labs: Lab Results 06/15/22 06/15/22 06/15/22 Range/Units 08:45 08:45 08:45 WBC 30.58 H* (4.50-11.00) K/uL RBC 6.62 H (4.00-5.20) m/uL Hgb 18.6 H (12.0-16.0) gm/dL Hct 55.4 H (33.0-51.0) % MCV 84 (80-100) fL MCH 28 (26-34) pg MCHC 34 (32-36) gm/dL RDW Coeff of Adriano 13.0 (11.5-15.5) % Plt Count 355 (140-440) K/uL Neut % (Auto) 79.6 H (42.0-72.0) % Lymph % (Auto) 11.0 L (20-44) % Motley % (Auto) 7.8 (0.0-11.0) % Eos % (Auto) 0.5 (0.0-7.0) % Baso % (Auto) 0.1 (0.0-3.0) % Neut # (Auto) 24.30 H (1.7-7.0) K/uL Lymph # (Auto) 3.40 H (0.90-2.90) K/uL Motley # (Auto) 2.40 H (0.00-0.90) K/UL Eos # (Auto) 0.20 (0.00-0.50) K/uL Baso # (Auto) 0.00 (0.00-0.30) K/uL Abs Immat Gran (auto) 0.31 H (0.00-0.30) K/uL Diff Slide Review Acceptable Review (Acceptable) ESR <2 L (2-20) mm/hr Sodium 140 (135-149) mmol/L Potassium 3.9 (3.6-5.1) mmol/L Chloride 101 (96-114) mmol/L Carbon Dioxide 27 (20-32) mmol/L BUN 15 (5-24) mg/dL Creatinine 0.9 (0.5-1.5) mg/dL Estimated Creat Clear 91.79 Estimated GFR 93 ml/min Glucose 85 (60-115) mg/dL Lactate (0.5-1.9) mmol/L Calcium 9.9 (8.4-10.6) mg/dL Total Bilirubin 1.3 (0.1-1.5) mg/dL AST 37 H (12-35) U/L ALT 38 H (4-35) U/L Alkaline Phosphatase 92 (40-150) U/L C-Reactive Protein < 0.5 L (0.5-1.0) mg/dL Total Protein 8.9 H (6.0-8.3) g/dL Albumin 5.1 H (3.3-5.0) g/dL Lipase (23-300) U/L SARS-CoV-2 (PCR) (Negative) 06/15/22 06/15/22 06/15/22 Range/Units 08:45 08:45 08:45 WBC (4.50-11.00) K/uL RBC (4.00-5.20) m/uL Hgb (12.0-16.0) gm/dL Hct (33.0-51.0) % MCV (80-100) fL MCH (26-34) pg MCHC (32-36) gm/dL RDW Coeff of Adriano (11.5-15.5) % Plt Count (140-440) K/uL Neut % (Auto) (42.0-72.0) % Lymph % (Auto) (20-44) % Motley % (Auto) (0.0-11.0) % Eos % (Auto) (0.0-7.0) % Baso % (Auto) (0.0-3.0) % Neut # (Auto) (1.7-7.0) K/uL Lymph # (Auto) (0.90-2.90) K/uL Motley # (Auto) (0.00-0.90) K/UL Eos # (Auto) (0.00-0.50) K/uL Baso # (Auto) (0.00-0.30) K/uL Abs Immat Gran (auto) (0.00-0.30) K/uL Diff Slide Review (Acceptable) ESR (2-20) mm/hr Sodium (135-149) mmol/L Potassium (3.6-5.1) mmol/L Chloride (96-114) mmol/L Carbon Dioxide (20-32) mmol/L BUN (5-24) mg/dL Creatinine (0.5-1.5) mg/dL Estimated Creat Clear Estimated GFR ml/min Glucose (60-115) mg/dL Lactate 1.3 (0.5-1.9) mmol/L Calcium (8.4-10.6) mg/dL Total Bilirubin (0.1-1.5) mg/dL AST (12-35) U/L ALT (4-35) U/L Alkaline Phosphatase (40-150) U/L C-Reactive Protein (0.5-1.0) mg/dL Total Protein (6.0-8.3) g/dL Albumin (3.3-5.0) g/dL Lipase 302 H (23-300) U/L SARS-CoV-2 (PCR) Negative SARS-CoV-2 (Negative) Imaging Data Abdominal x-ray: Attestation: I have reviewed the pertinent imaging results. My impression: I see no evidence of dilated colon like toxic megacolon but do see some nonspe cific scattered air-fluid levels. No evidence of ileus on my preliminary review of this abdominal x-ray series. Radiologist's impression: Patient: JACE ALVARADO Facility:?[facility] Patient ID:?[id number] Site Patient ID:?[id number]. Site :?2000 Study:?XRay Abdomen/Pelvis -06/15/2022 9:32:44 AM Ordering Physician:Sugar Markham Final Report: Indication: Colitis Technique: Upright and supine views the abdomen were acquired Comparison: No prior plain film studies Findings: Nonspecific bowel gas pattern. No visible free air. No evident obstruction. Fluid scattered throughout the nondilated colon, nonspecific. No pneumatosis. Impression: Nonspecific bowel gas pattern. No visible free air or obstruction. Fluid scattered throughout the nondilated colon which is a nonspecific finding. There is no evidence of pneumatosis. Dictated by Mario Wade MD @ 06/15/2022 9:54:15 AM (Electronic Signature) Critical Care Time Critical Care Time Critical Care Time: No Discharge Plan Discharge Clinical Impression: Colitis due to Clostridium difficile Patient Disposition: Admitted As Inpatient Condition: Unchanged Prescriptions: No Action sertraline 100 mg tablet 100 mg PO DAILY Label Comments: TAKE 1 TABLET BY MOUTH EVERY DAY trazodone 150 mg tablet 150 mg PO HS Label Comments: TAKE 1 TABLET BY MOUTH EVERYDAY AT BEDTIME sertraline 25 mg tablet 25 mg PO Q24H Label Comments: TAKE ONE (1) TABLET BY MOUTH DAILY ALONG WITH 100MG montelukast 10 mg tablet 10 mg HS Label Comments: TAKE 1 TABLET BY MOUTH EVERYDAY AT BEDTIME testosterone enanthate 200 mg/mL oil 200 mg IM .weekly albuterol sulfate 90 mcg/actuation HFA aerosol inhaler INHALATION Label Comments: INHALE 1 TO 2 PUFFS BY MOUTH EVERY 6 HOURS IF NEEDED FOR WHEEZING 1ST CHOICE. aripiprazole 5 mg tablet 5 mg PO DAILY Label Comments: TAKE 1 TABLET BY MOUTH EVERY DAY methylphenidate HCl [Ritalin LA] 30 mg capsule,ER biphasic 50-50 30 mg PO DAILY Label Comments: TAKE 1 CAPSULE BY MOUTH EVERY DAY quetiapine 50 mg tablet 50 mg PO DAILY Label Comments: TAKE 1 TABLET BY MOUTH EVERY DAY levofloxacin 500 mg tablet 500 mg PO DAILY Qty: 7 0RF Rx Instructions: Start 10/16 am albuterol sulfate 90 mcg/actuation HFA aerosol inhaler 2 puff inhalation 6XD PRN (Reason: shortness of breath or wheezing) Qty: 8.5 1RF prednisone 20 mg tablet 20 mg PO BID Qty: 10 0RF ipratropium-albuterol 0.5 mg-3 mg(2.5 mg base)/3 mL solution for nebulization 3 ml inhalation Q6H PRNQty: 90 1RF gabapentin 100 mg capsule 100 mg PO TID Follow Up/Referrals: Shanthi Delgadillo MD [Primary Care Provider] -
--- NOTE | 2022-06-15 08:51 | CRLHL7_ITS ---
For Patients: As a result of the Cures Act, medical imaging exams and procedure reports are released immediately into your electronic medical record. You may view this report before your referring provider. If you have questions, please contact your health care provider. Indication: Colitis Technique: Upright and supine views the abdomen were acquired Comparison: No prior plain film studies Findings: Nonspecific bowel gas pattern. No visible free air. No evident obstruction. Fluid scattered throughout the nondilated colon, nonspecific. No pneumatosis. Impression: Nonspecific bowel gas pattern. No visible free air or obstruction. Fluid scattered throughout the nondilated colon which is a nonspecific finding. There is no evidence of pneumatosis. Dictated by Mario Wade MD @ 06/15/2022 9:54:15 AM (Electronically Signed)
[2022-06-15 08:55] LABS: Lactate* 1.3 mmol/L (0.5-1.9)
[2022-06-15 08:56] LABS: Basophils Percent Auto 0.1 % (0.0-3.0); Eosinophils Percent Auto 0.5 % (0.0-7.0); Hematocrit 55.4 % (33.0-51.0); Hemoglobin* 18.6 gm/dL (12.0-16.0); Immature Granulocytes Abs Auto 0.31 K/uL (0.00-0.30); Mean Corpuscular HGB Conc 34 gm/dL (32-36); Mean Corpuscular Hemoglobin 28 pg (26-34); Mean Corpuscular Volume 84 fL (80-100); Monocytes Percent Auto 7.8 % (0.0-11.0); Neutrophils Percent Auto 79.6 % (42.0-72.0); Platelet Count* 355 K/uL (140-440); Red Blood Count 6.62 m/uL (4.00-5.20)
[2022-06-15] MEDS: 0.9 % SODIUM CHLORIDE 1000 ml 1,000 ML IV ×2 (09:00→12:58)
[2022-06-15] MEDS: KETOROLAC 15 MG/ML inj IVP (09:01)
--- OUTSIDE RECORDS SUMMARY | 2022-06-15 09:02 | XMS_ITS | Encounter Summary ---
:2000 Author Organization [employer] Address [address] [address] Phone Care Team Providers Name Role Phone [...] on filedocumented in this encounter Care Teams Extruding Press Operator Relationship Specialty Start Date End Date Elsewhere, Pcp PCP - General 10/03/15 documented as of this encounter
--- OUTSIDE RECORDS SUMMARY | 2022-06-15 09:02 | XMS_ITS | Encounter Summary ---
:2000 Author Organization [employer] Address [address] [place] [address] Phone Care Team Providers Name Role Phone Elsewhere, Pcp Primary Care Provider Unavailable Encounter Details Date Type Department Care Team Description 02/27/2017 Scanned - Medical [facility] HIS Abstract, Reports [address] [facility] Provider, [place] [address] Social History Tobacco Use Types [...] on filedocumented in this encounter Care Teams Bag Liner Relationship Specialty Start Date End Date Elsewhere, Pcp PCP - General 10/03/15 documented as of this encounter
--- OUTSIDE RECORDS SUMMARY | 2022-06-15 09:02 | XMS_ITS | Clinical Summary ---
:2000 Author Organization [employer] Address [address] [address] Phone Care Team Providers Name Role Phone [...] Comments Blood Pressure 92/53 10/07/2015 7:15 PM EARRING MAKER Pulse 77 10/07/2015 7:15 PM EARRING MAKER Temperature 36.6 ??C (97.9 ??F) 10/07/2015 7:15 PM EARRING MAKER Respiratory Rate 16 10/07/2015 9:00 PM EARRING MAKER Oxygen Saturation 100% 10/06/2015 8:58 AM EARRING MAKER Inhaled Oxygen Concentration - - Weight 49.7 kg (109 lb 9.1 oz) 10/03/2015 2:19 PM EARRING MAKER Height 165.4 cm (5' 5.12) 10/03/2015 2:19 PM EARRING MAKER Body Mass Index 18.17 10/03/2015 2:19 PM EARRING MAKER Plan of Treatment Health Maintenance Due Date [...] / Group Dates BCBS OTHER BCBS OTHER [id number] 2019-Prese [address] [address] BCBS OTHER BCBS OTHER [id number] 2019-Prese [address] [address] Care Teams Business Process Associate Relationship Specialty Start Date End Date Elsewhere, Pcp PCP - General 10/03/15
--- OUTSIDE RECORDS SUMMARY | 2022-06-15 09:02 | XMS_ITS | Encounter Summary ---
:2000 Author Organization [employer] Address [address] [address] Phone Care Team Providers Name Role Phone Elsewhere, Pcp Primary Care Provider Unavailable Reason for Visit Reason Comments Update [facility] Encounter Details Date Type Department Care Team Description 09/21/2015 Abstract [facility] HIS Abstract, Update ([facility]) [address] [facility] Provider, [place] [address] Social History Tobacco Use Types Packs/Day Years Used Date Never Assessed Sex Assigned at Date Recorded Not on file documented as of this encounter Plan of Treatment Not on filedocumented as of this encounter Visit Diagnoses Not on filedocumented in this encounter Care Teams Medical Scientific Officer Relationship Specialty Start Date End Date Elsewhere, Pcp PCP - General 10/03/15 documented as of this encounter
--- OUTSIDE RECORDS SUMMARY | 2022-06-15 09:02 | XMS_ITS | Encounter Summary ---
:2000 Author Organization [employer] Address [address] [address] Phone Care Team Providers Name Role Phone Elsewhere, Pcp Primary Care Provider Unavailable Reason for Visit Reason Comments External Lab Results Encounter Details Date Type Department Care Team Description 02/27/2017 Abstract [facility] HIS Abstract, Provider, External Lab Results [address] [facility] [place] [address] Social History Tobacco Use Types [...] - 11.0 OUTSIDE K/uL LABORATORY Comment: (see [facility] lab scanned on 02/24/2017) EXTERNAL RBC 4.81 [...] on filedocumented in this encounter Care Teams Lumber Material Handler Relationship Specialty Start Date End Date Elsewhere, Pcp PCP - General 10/03/15 documented as of this encounter
--- OUTSIDE RECORDS SUMMARY | 2022-06-15 09:02 | XMS_ITS | Encounter Summary ---
:2000 Author Organization [employer] Address [address] [address] Phone Care Team Providers Name Role Phone Elsewhere, Pcp Primary Care Provider Unavailable Reason for Visit Reason Comments Update [facility] [place] Encounter Details Date Type Department Care Team Description 10/03/2015 Abstract [facility] HIS Abstract, Update ([facility] MD [place] [facility] [place] [address] [place] [phone] Social History Tobacco Use Types Packs/Day Years [...] on filedocumented in this encounter Care Teams Industrial Health Engineer Relationship Specialty Start Date End Date Elsewhere, Pcp PCP - General 10/03/15 documented as of this encounter
--- OUTSIDE RECORDS SUMMARY | 2022-06-15 09:02 | XMS_ITS | Encounter Summary ---
:2000 Author Organization [employer] Address [address] [place] [address] Phone Care Team Providers Name Role Phone Elsewhere, Pcp Primary Care Provider Unavailable Encounter Details Date Type Department Care Team Description 12/07/2015 Scanned - Medical [facility] HIS Abstract, Reports [address] [facility] [facility] Provider, [place] [address] Social History Tobacco Use Types [...] Associated Diagnosis Comme nts OUTSIDE LAB Routine 10/03/2015 documented in this encounter Results OUTSIDE LAB (10/03/2015) Narrative This result has an attachment that is no t available. Provider Abstract MD [facility] documented in this encounter Visit Diagnoses Not on filedocumented in this encounter Care Teams Insurance Verification Rep Relationship Specialty Start Date End Date Elsewhere, Pcp PCP - General 10/03/15 documented as of this encounter
--- OUTSIDE RECORDS SUMMARY | 2022-06-15 09:03 | XMS_ITS | Encounter Summary ---
:2000 Author Organization [employer] Address [address] [address] Phone Care Team Providers Name Role Phone Elsewhere, Pcp Primary Care Provider Unavailable Reason for Visit Reason Comments Update [facility] Encounter Details Date Type Department Care Team Description 05/21/2015 Abstract [facility] Abstract, Update ([facility] [address] [facility] Provider, [place] [address] [facility]) [phone] Social History Tobacco Use Types Packs/Day Years Used Date Never Assessed Sex Assigned at Date Recorded Not on file documented as of this encounter Plan of Treatment Not on filedocumented as of this encounter Visit Diagnoses Not on filedocumented in this encounter Care Teams Glost Tile Shader Relationship Specialty Start Date End Date Elsewhere, Pcp PCP - General 10/03/15 documented as of this encounter
--- OUTSIDE RECORDS SUMMARY | 2022-06-15 09:03 | XMS_ITS | Encounter Summary ---
:2000 Author Organization [employer] Address [address] [address] Phone Care Team Providers Name Role Phone Elsewhere, Pcp Primary Care Provider Unavailable Reason for Visit Reason Comments Update [facility] [place] Encounter Details Date Type Department Care Team Description 06/25/2015 Abstract [facility] HIS Abstract, Update ([facility] [address] [place] [address] MD [place] [facility] [place] [address] [place]) [phone] Social History Tobacco Use Types Packs/Day Years Used Date Never Assessed Sex Assigned at Date Recorded Not on file documented as of this encounter Plan of Treatment Not on filedocumented as of this encounter Visit Diagnoses Not on filedocumented in this encounter Care Teams Life Skills Teacher Relationship Specialty Start Date End Date Elsewhere, Pcp PCP - General 10/03/15 documented as of this encounter
[2022-06-15 09:14] LABS: Albumin* 5.1 g/dL (3.3-5.0); Chloride* 101 mmol/L (96-114)
[2022-06-15 09:15] LABS: Potassium* 3.9 mmol/L (3.6-5.1); Sodium* 140 mmol/L (135-149)
[2022-06-15 09:17] LABS: Alkaline Phosphatase* 92 U/L (40-150); Aspartate Amino Transferase* 37 U/L (12-35); Bilirubin Total* 1.3 mg/dL (0.1-1.5); Carbon Dioxide* 27 mmol/L (20-32); Creatinine* 0.9 mg/dL (0.5-1.5); Est. Creatinine Clearance* 91.79; Estimated Glomerular Filt Rate 93 ml/min; Total Protein* 8.9 g/dL (6.0-8.3)
[2022-06-15 09:18] LABS: Alanine Aminotransferase* 38 U/L (4-35); Blood Urea Nitrogen* 15 mg/dL (5-24); Calcium* 9.9 mg/dL (8.4-10.6); Glucose* 85 mg/dL (60-115); Lipase* 302 U/L (23-300)
[2022-06-15 09:20] LABS: Slide Review Reflex Yes; White Blood Count* 30.58 K/uL (4.50-11.00)
--- NOTE | 2022-06-15 09:20 | PC.NURSE ---
critical WBC 30.[address] España
[2022-06-15 09:21] LABS: C Reactive Protein* < 0.5 mg/dL (0.5-1.0)
[2022-06-15 09:22] LABS: Slide Review Acceptable Review (Acceptable)
[2022-06-15 09:34] LABS: Erythrocyte SedimentationRate* <2 mm/hr (2-20)
[2022-06-15 09:42] LABS: SARS PCR* Negative SARS-CoV-2 (Negative)
[2022-06-15] MEDS: metroNIDAZOLE 500 MG/100 ML PIGGYBACK IVPB (09:56)
--- NOTE | 2022-06-15 11:11 | CRLHL7_ITS ---
For Patients: As a result of the 21st Century Cures Act, medical imaging exams and procedure reports are released immediately into your electronic medical record. You may view this report before your referring provider. If you have questions, please contact your health care provider. INDICATION: Abdominal pain, ? toxic megacolon, C diff, colitis, cough, shortness of breath, ? PE, ? pneumonia. TECHNIQUE: CT chest PE, abdomen, and pelvis acquired with 95 mL of Isovue 370 IV contrast. Coronal and sagittal reformats were generated. COMPARISON: CT of the abdomen and pelvis from 06/11/2022. FINDINGS: CHEST: Pulmonary arteries: The quality of enhancement of the pulmonary arteries is adequate. No filling defects to suggest pulmonary emboli. No findings of pulmonary artery hypertension. Thyroid: Unremarkable. Thoracic lymph nodes: No enlarged supraclavicular, mediastinal, hilar, or axillary lymph nodes. Mediastinum and esophagus: Unremarkable. Small focus of soft tissue density in the anterior mediastinum is suggestive of residual thymus. Heart and vasculature: Unremarkable. Lungs: Few small areas of vague geographic mosaic attenuation are nonspecific and can be seen with air trapping or inflammatory changes. No focal consolidations. Pleura: Unremarkable. Chest wall: Unremarkable. ABDOMEN AND PELVIS: Liver: Unremarkable. Gallbladder and bile ducts: Unremarkable. No stones or inflammation. No biliary dilation. Spleen: Unremarkable. Several small splenules. Pancreas: Unremarkable. Adrenal glands: Unremarkable. No nodules. Kidneys and Ureters: Unremarkable. No suspicious masses, stones, or hydronephrosis. Lymph Nodes and Retroperitoneum: Unremarkable. Vasculature: Unremarkable. GI tract: Prominent submucosal fat in the colon, primarily the ascending portion. Normal in caliber. Normal appendix. Peritoneum/Abdominal Wall: Unremarkable. No mass or infiltration. No free air or free fluid. Periumbilical fat containing hernia. Pelvic Viscera: Unremarkable. Bladder: Unremarkable. Bones: Unremarkable for age. IMPRESSION: 1. No pulmonary embolism. 2. Grossly clear lungs. 3. Prominent submucosal fat in the colon is nonspecific and can be seen with infectious colitis and inflammatory bowel disease. This can also be a normal finding. 4. No other significant CT abnormality in the abdomen or pelvis, or findings to explain the cause of the patient`s symptoms. Please note that all CT scans at this facility use dose modulation, iterative reconstruction, and/or weight-based dosing when appropriate to reduce radiation dose to as low as reasonably achievable. Dictated by Zac Qureshi MD @ 06/15/2022 12:17:45 PM (Electronically Signed)
--- NOTE | 2022-06-15 11:41 | CRLHL7_ITS ---
For Patients: As a result of the Century Cures Act, medical imaging exams and procedure reports are released immediately into your electronic medical record. You may view this report before your referring provider. If you have questions, please contact your health care provider. INDICATION: CALF PAIN TECHNIQUE: Ultrasound venous duplex lower extremity bilateral. Compression venous exam was performed using ochoa scale, color Doppler, and spectral Doppler imaging. COMPARISON: None. FINDINGS: Sonographic imaging demonstrates the common femoral, deep femoral, superficial femoral, popliteal, posterior tibial and greater saphenous veins to be fully compressible with normal color Doppler blood flow in both lower extremities. IMPRESSION: Normal bilateral lower extremity venous ultrasound, no sign of deep venous thrombosis. Dictated by: Mika Hannah MD @ 06/15/2022 12:43:00 (Electronically Signed)
--- NOTE | 2022-06-15 11:49 | PM.IMHP1 ---
Hospitalist- H&P: HPI History of Present Illness Date Seen: 06/24/22 Chief complaint: vomiting,diarrhea,stomach pains Narrative: Jace Wharton is a 22 year old female presenting for evaluation of abdominal pain. The patient was recently diagnosed with PNA/asthma exacerbation on 06/09; started on steroids/levaquin/nebs. On 06/11 he developed nausea, vomiting, and diarrhea and was found to have c diff. He presented back to ED today for worsening generalized abdominal pain, continue nausea and vomiting. He also endorses pleuritic chest pain. He has chronic SOB and chronic cough from asthma. He denies fever. He continues to have liquid stool. In the ED AXR was obtained which showed Nonspecific bowel gas pattern. No visible free air or obstruction. Fluid scattered throughout the nondilated colon which is a nonspecific finding. There is no evidence of pneumatosis. Notable labs included WBC 30, Lipase 302, lactate 1.3. Review of Systems Status of ROS: Reports: 10 or more systems reviewed and unremarkable except as noted in History and below [facility] Medical History (Updated 06/24/22 @ 00:01 by ) ADHD Anxiety Asthma Breast removal, prophylactic Community acquired pneumonia Depression Tobacco dependence Traumatic brain injury Surgical History (Updated 06/15/22 @ 11:27 by Millicent Hayes RN) [place] teeth removed Social History Highest level of school completed/degree received: high school graduate Smoking Status: Former smoker Do you use any of these nicotine containing products: E-Cigarettes and Vaping Products Nicotine containing products detail: Frequently Vapes Second hand tobacco smoke exposure: No How often do you have a drink containing alcohol: monthly or less How many standard drinks containing alcohol do you have on a typical day: 1 or 2 How often do you have six or more drinks on one occasion: Never AUDIT-C Alcohol total score: 1 Non-prescribed substance use: marijuana (any form) Non-prescribed substance use details: medical marijuana card Caffeine: No (Rarely) Do you think of yourself as: straight/heterosexual Gender Identity: male service: No Meds Home Medications and Allergies Home Medications Medication Instructions Recorded Confirmed Type aripiprazole 5 mg tablet 5 mg PO DAILY 04/02/22 06/15/22 History methylphenidate HCl 30 mg biphasic 30 mg PO DAILY 04/02/22 06/15/22 History 50-50 capsule,extended release (Ritalin LA) montelukast 10 mg tablet 10 mg PO DAILY 04/02/22 06/15/22 History sertraline 100 mg tablet 100 mg PO DAILY 04/02/22 06/15/22 History sertraline 25 mg tablet 25 mg PO DAILY 04/02/22 06/15/22 History testosterone enanthate 200 mg/mL 50 mg subcut Q7D 04/02/22 06/15/22 History intramuscular oil trazodone 150 mg tablet 150 mg PO HS 04/02/22 06/15/22 History gabapentin 100 mg capsule 100 mg PO TID PRN 06/11/22 06/15/22 History fluticasone furoate 200 1 inh inhalation DAILY 06/15/22 06/15/22 History mcg-vilanterol 25 mcg/dose inhalation powder (Breo Ellipta) fluticasone propionate 50 1 spray intranasal DAILY PRN 06/15/22 06/15/22 History mcg/actuation nasal spray,suspension vancomycin 125 mg capsule 125 mg PO QID 06/15/22 06/15/22 History Allergies Allergy/AdvReac Type Severity Reaction Status Date / Time ondansetron [From Zofran] AdvReac Verified 06/11/22 10:33 Exam Narrative: Exam Narrative: Gen: NAD HEENT: NCAT EOMI MMM Neck: Supple CV: RRR normal s1 s2 lctab abdomen: SOFt, mild tenderness no rebound or guarding Neuro: AOX3, CN intact MSK: age appropriate muscle mass Skin: multiple tattoos Psych: appropriate affect Const: Vital Signs, click to edit/add: Vital Signs - 24 hr 06/15/22 08:36 06/15/22 11:05 06/15/22 11:12 Temperature 97.0 F L 97.0 F L Pulse Rate [Pulse Oximeter] 63 63 Pulse Rate [Right Pulse Oximeter] 90 Respiratory Rate 20 16 16 Blood Pressure [Le ft Arm] 101/70 101/70 Blood Pressure [Le ft Upper Arm] 119/80 Pulse Oximetry 97 94 94 Oxygen Delivery Me thod Room Air Room Air Room Air 06/15/22 10:15 06/15/22 08:50 Temperature Pulse Rate [Pulse Oximeter] Pulse Rate [Right Pulse Oximeter] 84 Respiratory Rate 18 Blood Pressure [Le ft Arm] Blood Pressure [Le ft Upper Arm] 116/78 Pulse Oximetry 98 97 Oxygen Delivery Me thod Room Air Hospitalist - H&P: Result Labs Labs: Short CBC 06/15/22 Range/Units 08:45 WBC 30.58 H* (4.50-11.00) K/uL Hgb 18.6 H (12.0-16.0) gm/dL Hct 55.4 H (33.0-51.0) % Plt Count 355 (140-440) K/uL BMP 06/15/22 08:45 Sodium 140 Potassium 3.9 Chloride 101 Carbon Dioxide 27 BUN 15 Creatinine 0.9 Glucose 85 Calcium 9.9 Liver Function 06/15/22 Range/Units 08:45 Total Bilirubin 1.3 (0.1-1.5) mg/dL AST 37 H (12-35) U/L ALT 38 H (4-35) U/L Alkaline Phosphatase 92 (40-150) U/L Albumin 5.1 H (3.3-5.0) g/dL Assessment and Plan Assessment and plan (1) Colitis due to Clostridium difficile: Status: Acute Plan Assessment: Jace Wharton is a 22 year old female presenting for evaluation of abdominal pain. The patient was recently diagnosed with PNA/asthma exacerbation on 06/09; started on steroids/levaquin/nebs. On 06/11 he developed nausea, vomiting, and diarrhea and was found to have c diff. He presented back to ED today for worsening generalized abdominal pain, continue nausea and vomiting. In the ED AXR was obtained which showed Nonspecific bowel gas pattern. No visible free air or obstruction. Fluid scattered throughout the nondilated colon which is a nonspecific finding. There is no evidence of pneumatosis. Notable labs included WBC 30, Lipase 302, lactate 1.3. 1. Acute C dif colitis 2. Pleuritic chest pain/SOB 3. Hx of Asthma 4. Hx of Depression and anxiety 5. Hx of ADHD 6. elevated lipase; possible early developing pancreatitis Plan -admit to inpatient -CT AP stat -CT PE stat -venous doppler US Lower extremity -PO vanco -IVF -antiemetics -NPO for now Code-Full DVT ppx-SCD
[2022-06-15] MEDS: PROCHLORPERAZINE 5 MG/ML VIAL IVP ×2 (12:32→20:37)
[2022-06-15] MEDS: HYDROmorphone 0.5 mg/0.5 ml inj IVP ×3 (12:57→20:28)
[2022-06-15] MEDS: VANCOMYCIN 125 MG CAPSULE PO ×3 (12:57→22:08)
[2022-06-15] MEDS: 0.9 % SODIUM CHLORIDE 1000 ml 1,000 ML 125 ML IV ×2 (15:08→22:32)
[2022-06-15] MEDS: diphenhydrAMINE 50 MG/ML inj 25 MG IVP (17:44)
--- NOTE | 2022-06-15 20:36 | PC.NURSE ---
Nurse care hours [phone] Pt this shift calm and cooperative. C/o nausea and vomiting with loose stools. Nausea treated with 2 types of IV medication (see emar). Applied cool wet towels to forehead and neck for comfort. Q-easy aromatherapy given for nausea but was not effective. Dilaudid given for upper epigastric pain x2 (see emar). Alert and oriented and independent in room. Attempt to push clear liquids and com writer instructed pt to slow down on PO fluids to decrease stomach upset. Update given to pt mother.
[2022-06-16] VITALS (7 sets, daily range): BP systolic 97–118; BP diastolic 55–85; PULSE 57–78; RESP 15–18; TEMP 36–36.6; O2SAT 94–97
[2022-06-16] MEDS: HYDROmorphone 0.5 mg/0.5 ml inj IVP ×7 (02:37→19:39)
[2022-06-16] MEDS: 0.9 % SODIUM CHLORIDE 1000 ml 1,000 ML 100 ML IV ×2 (06:48→19:40)
[2022-06-16 07:20] LABS: Basophils Absolute Auto 0.02 K/uL (0.00-0.30); Basophils Percent Auto 0.2 % (0.0-3.0); Eosinophils Absolute Auto 0.57 K/uL (0.00-0.50); Hematocrit 49.9 % (33.0-51.0); Hemoglobin* 16.3 gm/dL (12.0-16.0); Immature Granulocytes Abs Auto 0.15 K/uL (0.00-0.30); Lymphocytes Absolute Auto 3.47 K/uL (0.90-2.90); Lymphocytes Percent Auto 42.7 % (20-44); Mean Corpuscular HGB Conc 33 gm/dL (32-36); Mean Corpuscular Hemoglobin 28 pg (26-34); Mean Corpuscular Volume 86 fL (80-100); Monocytes Percent Auto 9.1 % (0.0-11.0); Neutrophils Percent Auto 39.2 % (42.0-72.0); Platelet Count* 277 K/uL (140-440); Red Blood Count 5.81 m/uL (4.00-5.20); White Blood Count* 8.12 K/uL (4.50-11.00)
--- NOTE | 2022-06-16 07:28 | PC.NURSE ---
Pt pleasant and cooperative. Up I to BR. C/O pain several times noc shift. Given 0.5mg of dilaudid each time with good results. Tolerating cl liquids. VSS
[2022-06-16 07:29] LABS: Chloride* 106 mmol/L (96-114); Potassium* 4.2 mmol/L (3.6-5.1); Sodium* 139 mmol/L (135-149)
[2022-06-16 07:32] LABS: Carbon Dioxide* 27 mmol/L (20-32); Creatinine* 0.8 mg/dL (0.5-1.5); Est. Creatinine Clearance* 103.26; Estimated Glomerular Filt Rate 107 ml/min; Slide Review Reflex No
[2022-06-16 07:33] LABS: Blood Urea Nitrogen* 10 mg/dL (5-24); Calcium* 8.5 mg/dL (8.4-10.6); Glucose* 85 mg/dL (60-115)
[2022-06-16] MEDS: metroNIDAZOLE 500 MG/100 ML PIGGYBACK IVPB ×3 (08:27→23:36)
[2022-06-16] MEDS: ARIPiprazole 10 MG TABLET 5 MG PO (08:32)
[2022-06-16] MEDS: MONTELUKAST 10 MG TABLET PO (08:32)
[2022-06-16] MEDS: SERTRALINE 100 MG TABLET PO (08:32)
[2022-06-16] MEDS: VANCOMYCIN 125 MG CAPSULE PO ×4 (08:32→21:09)
[2022-06-16] MEDS: diphenhydrAMINE 50 MG/ML inj 25 MG IVP ×2 (08:50→15:55)
--- NOTE | 2022-06-16 09:00 | PM.IMPN1 ---
Progress Note: A&P Assessment and plan (1) Colitis due to Clostridium difficile: Status: Acute Assessment and Plan: - subjectively and objectively improving, but still having n/v, unable to advance diet fully at this time for d/c - slowly advance diet today - continue oral vancomycin, IV Flagyl (2) Nausea & vomiting: Status: Acute Plan - per above - ambulation and SCDs for ppx - likely home tomorrow if continues to improve - mother updated by phone, questions answered Subjective Date Seen: 06/16/22 Interval history: No acute events overnight. Continuing to have intermittent vomiting, although much improved from admission. Stools are decreasing in frequency as well. Jace is tolerating clear liquids, would like to advance diet to full liquids. Exam Narrative: Exam Narrative: GEN: Alert and oriented, nontoxic in appearance HEENT: Normal external ears, EOMIs bilaterally, no scleral icterus CV: RRR, No concerning murmurs, rubs, or gallops R: LCTA bilaterally without concerning wheezing, rales, or rhonchi AB: soft, mild-moderate discomfort to palpation, + BS Ext: wwp, no concerning edema Skin: No concerning skin lesions or rashes on exposed skin Neuro: Nonfocal Psych: Appropriate Const: Vital Signs, click to edit/add: Vital Signs - 24 hr 06/15/22 11:05 06/15/22 11:12 06/15/22 10:15 Temperature 97.0 F L Pulse Rate [Pulse Oximeter] 63 63 Pulse Rate [Right Pulse Oximeter] 84 Respiratory Rate 16 16 18 Blood Pressure [Le ft Arm] 101/70 101/70 Blood Pressure [Le ft Upper Arm] 116/78 Pulse Oximetry 94 94 98 Oxygen Delivery Me thod Room Air Room Air Room Air 06/15/22 15:00 06/15/22 15:00 06/15/22 20:26 Temperature 97.6 F Pulse Rate [Pulse Oximeter] 68 68 Pulse Rate [Right Pulse Oximeter] Respiratory Rate 16 16 16 Blood Pressure [Le ft Arm] 104/74 Blood Pressure [Le ft Upper Arm] Pulse Oximetry 94 94 Oxygen Delivery Me thod Room Air Room Air 06/15/22 19:00 06/16/22 02:44 Temperature 97.3 F L 96.8 F L Pulse Rate [Pulse Oximeter] 75 78 Pulse Rate [Right Pulse Oximeter] Respiratory Rate 18 18 Blood Pressure [Le ft Arm] 111/77 103/78 Blood Pressure [Le ft Upper Arm] Pulse Oximetry 98 95 Oxygen Delivery Me thod Room Air Room Air Labs Labs: Laboratory Results - last 24 hr 06/15/22 06/15/22 06/15/22 08:45 08:45 08:45 WBC 30.58 H* RBC 6.62 H Hgb 18.6 H Hct 55.4 H MCV 84 MCH 28 MCHC 34 RDW Coeff of Adriano 13.0 Plt Count 355 Neut % (Auto) 79.6 H Lymph % (Auto) 11.0 L [place] % (Auto) 7.8 Eos % (Auto) 0.5 Baso % (Auto) 0.1 Neut # (Auto) 24.30 H Lymph # (Auto) 3.40 H [place] # (Auto) 2.40 H Eos # (Auto) 0.20 Baso # (Auto) 0.00 Abs Immat Gran (auto) 0.31 H Diff Slide Review Acceptable Review ESR <2 L Sodium 140 Potassium 3.9 Chloride 101 Carbon Dioxide 27 BUN 15 Creatinine 0.9 Estimated Creat Clear 91.79 Estimated GFR 93 Glucose 85 Calcium 9.9 Total Bilirubin 1.3 AST 37 H ALT 38 H Alkaline Phosphatase 92 C-Reactive Protein < 0.5 L Total Protein 8.9 H Albumin 5.1 H Lipase SARS-CoV-2 (PCR) 06/15/22 06/15/22 06/16/22 08:45 08:45 06:37 WBC 8.12 RBC 5.81 H Hgb 16.3 H Hct 49.9 MCV 86 MCH 28 MCHC 33 RDW Coeff of Adriano 13.0 Plt Count 277 Neut % (Auto) 39.2 L Lymph % (Auto) 42.7 [place] % (Auto) 9.1 Eos % (Auto) 7.0 Baso % (Auto) 0.2 Neut # (Auto) 3.20 Lymph # (Auto) 3.47 H [place] # (Auto) 0.70 Eos # (Auto) 0.57 H Baso # (Auto) 0.02 Abs Immat Gran (auto) 0.15 Diff Slide Review ESR Sodium Potassium Chloride Carbon Dioxide BUN Creatinine Estimated Creat Clear Estimated GFR Glucose Calcium Total Bilirubin AST ALT Alkaline Phosphatase C-Reactive Protein Total Protein Albumin Lipase 302 H SARS-CoV-2 (PCR) Negative SARS-CoV-2 06/16/22 06:37 WBC RBC Hgb Hct MCV MCH MCHC RDW Coeff of Adirano Plt Count Neut % (Auto) Lymph % (Auto) [place] % (Auto) Eos % (Auto) Baso % (Auto) Neut # (Auto) Lymph # (Auto) [place] # (Auto) Eos # (Auto) Baso # (Auto) Abs Immat Gran (auto) Diff Slide Review ESR Sodium 139 Potassium 4.2 Chloride 106 Carbon Dioxide 27 BUN 10 Creatinine 0.8 Estimated Creat Clear 103.26 Estimated GFR 107 Glucose 85 Calcium 8.5 Total Bilirubin AST ALT Alkaline Phosphatase C-Reactive Protein Total Protein Albumin Lipase SARS-CoV-2 (PCR)
[2022-06-16 09:23] LABS: Magnesium* 2.3 mg/dL (1.5-2.6)
[2022-06-16] MEDS: PROCHLORPERAZINE 5 MG/ML VIAL IVP ×2 (10:28→19:39)
--- NOTE | 2022-06-16 19:24 | PC.NURSE ---
Nurse Care Hours: [phone] Pt this shift struggling with emesis and epigastric pain this morning. Emesis x3. Pt non compliant with sips and ice chips order after repairer typewriter discussed how slowing down on PO fluids will decrease the N/V. NPO status started and no emesis since. Pt still c/o pain 5/10 and requesting IV pain relief about every 1.5-2.0 hours. Nausea medication requested x1 since NPO. Hospitalist updated. Pt c/o sudden numbness in L leg while sitting in bed, unrelieved by walking in room. Per MD, ultrasound done previous day and showed no clots. SCD given and pt verbalized relief. Friend and significant other visited this shift.
[2022-06-16] MEDS: TRAZODONE HCL 50 MG TABLET 150 MG PO (21:08)
[2022-06-17] MEDS: 0.9 % SODIUM CHLORIDE 1000 ml 1,000 ML 100 ML IV ×2 (05:13→16:08)
[2022-06-17] MEDS: PROCHLORPERAZINE 5 MG/ML VIAL IVP (05:13)
--- NOTE | 2022-06-17 06:26 | PC.NURSE ---
Pt pleasant and cooperative. C/O pain overnight were minimal. Pain meds only given once at around 8pm. C/O nausea a couple of times. Meds given twice. Pt stills want to drink. Reminded he is NPO til the doctoer sees him. Not happy with that but is compliant. Voiding without problems. BP's on the lower side this am. Will pass on.
[2022-06-17] MEDS: metroNIDAZOLE 500 MG/100 ML PIGGYBACK IVPB ×2 (06:59→16:08)
[2022-06-17 07:00] VITALS: PULSE 70; RESP 15
[2022-06-17 07:15] LABS: Basophils Absolute Auto 0.02 K/uL (0.00-0.30); Basophils Percent Auto 0.2 % (0.0-3.0); Eosinophils Percent Auto 8.9 % (0.0-7.0); Hematocrit 49.2 % (33.0-51.0); Hemoglobin* 16.2 gm/dL (12.0-16.0); Immature Granulocytes Abs Auto 0.14 K/uL (0.00-0.30); Lymphocytes Absolute Auto 2.45 K/uL (0.90-2.90); Lymphocytes Percent Auto 29.1 % (20-44); Mean Corpuscular HGB Conc 33 gm/dL (32-36); Mean Corpuscular Hemoglobin 28 pg (26-34); Mean Corpuscular Volume 85 fL (80-100); Monocytes Percent Auto 9.7 % (0.0-11.0); Neutrophils Absolute Auto 4.25 K/uL (1.7-7.0); Neutrophils Percent Auto 50.4 % (42.0-72.0); Platelet Count* 270 K/uL (140-440); RDW Coefficient of Variation % 12.6 % (11.5-15.5); Red Blood Count 5.76 m/uL (4.00-5.20); White Blood Count* 8.43 K/uL (4.50-11.00)
[2022-06-17 07:17] LABS: Slide Review Reflex No
[2022-06-17 07:34] LABS: Chloride* 106 mmol/L (96-114); Sodium* 137 mmol/L (135-149)
[2022-06-17 07:37] LABS: Blood Urea Nitrogen* 11 mg/dL (5-24); Carbon Dioxide* 23 mmol/L (20-32); Creatinine* 0.8 mg/dL (0.5-1.5); Est. Creatinine Clearance* 103.26; Estimated Glomerular Filt Rate 107 ml/min; Glucose* 75 mg/dL (60-115)
[2022-06-17 07:38] LABS: Calcium* 8.6 mg/dL (8.4-10.6)
[2022-06-17] MEDS: MONTELUKAST 10 MG TABLET PO (08:34)
[2022-06-17] MEDS: SERTRALINE 50 MG TABLET 25 MG PO (08:34)
[2022-06-17] MEDS: SERTRALINE 100 MG TABLET PO (08:35)
[2022-06-17] MEDS: VANCOMYCIN 125 MG CAPSULE PO ×4 (08:35→21:16)
[2022-06-17] MEDS: METHYLPHENIDATE HCL 30 MG 30 EACH PO (08:37)
[2022-06-17] MEDS: ARIPiprazole 10 MG TABLET 5 MG PO (10:08)
[2022-06-17 11:00] VITALS: BP 117/75; PULSE 70; RESP 18; TEMP 37; O2SAT 98
[2022-06-17] MEDS: diphenhydrAMINE 50 MG/ML inj 25 MG IVP (11:14)
[2022-06-17] MEDS: ACETAMINOPHEN 325 MG TABLET 650 MG PO ×3 (13:33→21:15)
[2022-06-17] MEDS: OXYCODONE 5 MG TABLET 2.5 MG PO ×2 (13:33→21:15)
[2022-06-17 15:00] VITALS: BP 115/69; PULSE 63; PULSE 70; RESP 18; TEMP 37; O2SAT 98
--- NOTE | 2022-06-17 16:19 | P.IMPN_ITS ---
Progress Note: A&P Assessment and plan (1) Colitis due to Clostridium difficile: Status: Acute Assessment and Plan: 1. Continue with oral vancomycin and IV metronidazole. 2. Continue to monitor hemoglobin. (2) Nausea & vomiting: Status: Acute Assessment and Plan: 1. Slowly improving. 2. Continue with as needed antiemetics. 3. Attempt to advance diet as tolerated (3) Tobacco dependence: Status: Acute Assessment and Plan: 1. Patient is contemplating cessation at this time. Discuss some of these pharmacologic and non pharmacologic methods with him. (4) Diarrhea: Status: Acute Assessment and Plan: 1. Monitor hemoglobin. (5) Shortness of breath: Status: Acute Assessment and Plan: 1. Treat asthma exacerbation. (6) Asthma with acute exacerbation: Status: Acute (7) Community acquired pneumonia: Status: Acute Plan 1. Answered patient's questions to his satisfaction. 2. He is agreeable to above stated plans and recommendations. 3. Increase activity as tolerated. Time Spent With Patient Total time spent: 45 minutes Subjective Time Seen by Provider: 09:30 Date Seen: 06/17/22 Interval history: Hospital day 3. Tolerating clear liquid diet. Still has a sense of nausea without vomiting this morning. Less liquid stools. Had formed stool yesterday. Intermittently has dark blood mixed with stool. Denies orthostasis, syncope or near syncope. Tolerating increased activities. Abdominal pain much improved. States breathing is stable. Denies dyspnea at rest, paroxysmal nocturnal dyspnea, orthopnea, dyspnea with exertion. Exam Narrative: Exam Narrative: No acute distress. Appears comfortable. Alert, oriented to self, place, time, situation. Articulate, cooperative, friendly. Mood and affect are congruent. Lungs are clear to auscultation. Heart tones with regular rhythm. Abdomen with active bowel sounds, soft, nontender today. Extremities without edema. Independent transfer, station, and gait. Skin is warm, dry, intact. Const: Vital Signs, click to edit/add: Vital Signs - 24 hr 06/16/22 19:00 06/16/22 23:00 06/17/22 11:00 Temperature 98 F 98.6 F Pulse Rate [Pulse Oximeter] 58 L 57 L 70 Respiratory Rate 18 16 18 Blood Pressure [Le ft Arm] 118/70 97/55 L 117/75 Pulse Oximetry 97 95 98 Oxygen Delivery Me thod Room Air Room Air Room Air 06/17/22 07:00 Temperature Pulse Rate [Pulse Oximeter] 70 Respiratory Rate 15 Blood Pressure [Le ft Arm] Pulse Oximetry Oxygen Delivery Me thod Documenting provider has reviewed patient's vital signs: yes Labs Labs: Laboratory Results - last 24 hr 06/17/22 06/17/22 06:29 06:29 WBC 8.43 RBC 5.76 H Hgb 16.2 H Hct 49.2 MCV 85 MCH 28 MCHC 33 RDW Coeff of Adriano 12.6 Plt Count 270 Neut % (Auto) 50.4 Lymph % (Auto) 29.1 [place] % (Auto) 9.7 Eos % (Auto) 8.9 H Baso % (Auto) 0.2 Neut # (Auto) 4.25 Lymph # (Auto) 2.45 [place] # (Auto) 0.80 Eos # (Auto) 0.80 H Baso # (Auto) 0.02 Abs Immat Gran (auto) 0.14 Sodium 137 Potassium 4.0 Chloride 106 Carbon Dioxide 23 BUN 11 Creatinine 0.8 Estimated Creat Clear 103.26 Estimated GFR 107 Glucose 75 Calcium 8.6
[2022-06-17 19:00] VITALS: BP 108/73; PULSE 56; RESP 18; TEMP 37; O2SAT 97
--- NOTE | 2022-06-17 21:10 | PC.NURSE ---
Nurse Care Hours: [phone] Pt this shift calm and cooperative. C/o pain later afternoon after starting clear liquid diet again. Treated per eMAR. Pt taking the fluids slower and has not c/o n/v. Loose stool x1 showed old blood sunk to bottom of toilet bowl. notified, no action required. Significant other visited and walked with pt in halls in evening. Pt anxious to go home but understanding of plan of care and timeline.
[2022-06-17] MEDS: TRAZODONE HCL 50 MG TABLET 150 MG PO (21:15)
[2022-06-17 23:00] VITALS: BP 107/74; PULSE 54; RESP 18; TEMP 37; O2SAT 96
[2022-06-18] MEDS: metroNIDAZOLE 500 MG/100 ML PIGGYBACK IVPB ×2 (00:32→06:56)
[2022-06-18] MEDS: OXYCODONE 5 MG TABLET 2.5 MG PO (00:50)
[2022-06-18] MEDS: 0.9 % SODIUM CHLORIDE 1000 ml 1,000 ML 100 ML IV (04:26)
--- NOTE | 2022-06-18 05:02 | PC.NURSE ---
PATIENT PLEASANT AND COOPERATIVE, AFTER VISITORS LEFT AND A WALK PATIENT STATED PAIN 8/10 IN ABDOMEN CRAMPY/VERY PAINFUL, MEDICATION GIVEN WITH MINIMAL RELIEF, PATIENT CRYING IN BED, AROMATHERAPY AND AQUA K PAD GIVEN WITH RELIEF PAIN 4-5/10 IN ABDOMEN, HAS SINCE BEEN ABLE TO REST, UP IND IN ROOM, TOLERATING CLD, PATIENT ALSO EXPRESSED HAVING TO PUSH URINE OUT, PVR 12CC, DECLINING BURNING/PAIN/URGENCY.
[2022-06-18 07:00] VITALS: BP 100/68; PULSE 57; RESP 18; TEMP 36.5; O2SAT 95
[2022-06-18] MEDS: VANCOMYCIN 125 MG CAPSULE PO ×2 (09:21→14:28)
[2022-06-18] MEDS: MONTELUKAST 10 MG TABLET PO (09:21)
[2022-06-18] MEDS: SERTRALINE 50 MG TABLET 25 MG PO (09:21)
[2022-06-18] MEDS: SERTRALINE 100 MG TABLET PO (09:22)
[2022-06-18] MEDS: ARIPiprazole 10 MG TABLET 5 MG PO (09:23)
[2022-06-18] MEDS: METHYLPHENIDATE HCL 30 MG 30 EACH PO (10:38)
[2022-06-18 11:00] VITALS: BP 113/69; PULSE 67; RESP 18; TEMP 36.7; O2SAT 97
[2022-06-18] MEDS: ACETAMINOPHEN 325 MG TABLET 650 MG PO (14:23)
[2022-06-18 15:37] VITALS: RESP 18; TEMP 36.7
--- NOTE | 2022-06-18 16:17 | PC.NURSE ---
Pt education given verbally and in writing. Pt's questions were answered. Pt ambulated to [facility] @1415 to return home.
--- NOTE | 2022-06-25 12:54 | P.DS_ITS ---
DS: Providers Provider Time Seen by Provider: 11:00 Date Seen: 06/18/22 Date of admission: 06/15/22 16:03 Primary care physician: Shanthi Delgadillo MD Admitting Clinician: Maria Antonia Scott MD Attending Physician on discharge: Rhys Berg MD Date of Discharge: 06/18/22 DS: Diagnosis Discharge Diagnosis (1) Transgender man on hormone therapy: Status: Acute (2) Nausea & vomiting: Status: Acute (3) Diarrhea: Status: Acute (4) Colitis due to Clostridium difficile: Status: Acute (5) Shortness of breath: Status: Acute (6) Tobacco dependence: Status: Acute DS: Summary Hospital Course Hospital Course: Jace Wharton is a 22 year old transgender man on active homone therapy presenting for evaluation of abdominal pain. The patient was recently diagnosed with PNA/asthma exacerbation on 06/09; started on steroids/levaquin/nebs. On 06/11 he developed nausea, vomiting, and diarrhea and was found to have c diff. He presented back to ED today for worsening generalized abdominal pain, continue nausea and vomiting. He also endorses pleuritic chest pain. He has chronic SOB and chronic cough from asthma. He denies fever. He continues to have liquid stool. In the ED AXR was obtained which showed Nonspecific bowel gas pattern. No visible free air or obstruction. Fluid scattered throughout the nondilated colon which is a nonspecific finding. There is no evidence of pneumatosis. Notable labs included WBC 30, Lipase 302, lactate 1.3. C diff test eventually comes back positive. We treat him with oral vancomycin and IV metronidazole. We slowly advanced his diet as tolerated. At time of discharge is tolerating a soft diet. Time spent discussing smoking cessation with patient: 3 to 10 minutes Status at Discharge Functional status at discharge: independent ambulation Overall status at discharge: patient is progressing back to baseline Time Spent with Patient Time attestation: Total time spent providing and/or coordinating discharge services: Time spent: Greater than 30 minutes Exam Narrative: Exam Narrative: No acute distress.? Appears comfortable.? Alert, oriented to self, place, time, situation.? Articulate, cooperative, friendly.? Mood and affect are congruent.? Lungs are clear to auscultation.? Heart tones with regular rhythm.? Abdomen with active bowel sounds, soft, nontender today.? Extremities without edema.? Independent transfer, station, and gait. Skin is warm, dry, intact. Const: Documenting provider has reviewed patient's vital signs: yes Discharge Plan Discharge Disposition: Home, Self-Care Date of Admission: 06/15/22 16:03 Attending Provider on Discharge: Rhys Berg Primary Care Provider: Shanthi Delgadillo I Condition: Unchanged Anticipated Discharge Date/Time: 06/18/22 15:30 Discharge Medications: Continued sertraline 100 mg tablet 100 mg PO DAILY Label Comments: TOTAL DOSE = 125 MG DAILY trazodone 150 mg tablet 150 mg PO HS Label Comments: TAKE 1 TABLET BY MOUTH EVERYDAY AT BEDTIME sertraline 25 mg tablet 25 mg PO DAILY Label Comments: TOTAL DOSE = 125 MG DAILY montelukast 10 mg tablet 10 mg PO DAILY testosterone enanthate 200 mg/mL oil 50 mg subcut Q7D Rx Instructions: FRIDAYS aripiprazole 5 mg tablet 5 mg PO DAILY Label Comments: TAKE 1 TABLET BY MOUTH EVERY DAY methylphenidate HCl [Ritalin LA] 30 mg capsule,ER biphasic 50-50 30 mg PO DAILY Label Comments: TAKE 1 CAPSULE BY MOUTH EVERY DAY albuterol sulfate 90 mcg/actuation HFA aerosol inhaler 2 puff inhalation 6XD PRN (Reason: shortness of breath or wheezing) Qty: 8.5 1RF ipratropium-albuterol 0.5 mg-3 mg(2.5 mg base)/3 mL solution for nebulization 3 ml inhalation Q6H PRNQty: 90 1RF gabapentin 100 mg capsule 100 mg PO TID PRN fluticasone furoate-vilanterol [Breo Ellipta] 200-25 mcg/dose blister with device 1 inh INHALATION DAILY Label Comments: INHALE 1 PUFF BY MOUTH EVERY DAY fluticasone propionate 50 mcg/actuation spray,suspension 1 spray INTRANASAL DAILY PRN vancomycin 125 mg capsule 125 mg PO QID Discharge Orders: Discharge Order (Routine); Ordered 06/18/22 Ordered By: Rhys Berg Patient Education: C. Diff (Clostridioides Difficile) Infection (GEN), Acute Nausea and Vomiting (DC) Additional Instructions: 1. You remain infectious for 10 days minimum, or until stools normalize, which ever comes later - take measures to decrease transmission to others. Activity Level: No Restrictions and Activity as Tolerated Activity Detail: May return to work without limitations in 2-3 days. Discharge Diet: Regular Follow Up Appointments: Shanthi Delgadillo MD [Primary Care Provider] - 06/27/22 1:10 pm Forms: [employer] Info Instructions
== END 2022-06-18 16:15 | disposition home or self-care (01) | DRG 248 ==
LOC: ED 09:58 → MEDSURG 16:24
PROVIDERS: Admitting Provider Family Medicine; Emergency Provider Family Medicine; PCP Family Medicine; Visit Provider Hospitalist
DX: A04.72 Enterocolitis due to Clostridium difficile, not specified as recurrent (principal); J45.901 Unspecified asthma with (acute) exacerbation; R06.02 Shortness of breath; Z79.899 Other long term (current) drug therapy; F64.0 Transsexualism; R07.1 Chest pain on breathing; R74.8 Abnormal levels of other serum enzymes; F17.290 Nicotine dependence, other tobacco product, uncomplicated; F17.200 Nicotine dependence, unspecified, uncomplicated; F90.9 Attention-deficit hyperactivity disorder, unspecified type; F32.A Depression, unspecified; F41.9 Anxiety disorder, unspecified; Z87.820 Personal history of traumatic brain injury; R05.9 Cough, unspecified; R11.0 Nausea; R19.7 Diarrhea, unspecified; R11.10 Vomiting, unspecified; K92.1 Melena
CPT/HCPCS: 36415; 71260; 74019; 74177; 80048; 80053; 83605; 83690; 83735; 85025; 85651; 86140; 87493; 87635; 93970; 94761; 96361; 96374; 96375; 96376; 99284; 99285; A9270; G0378; J0780; J1170; J1200; J1885; J7030; Q9967; S0030

== ENCOUNTER 2022-06-29 13:21 | Emergency (ER) | payer BC, MEDICAID, SELFPAY ==
[2022-06-29 13:27] VITALS: BP 104/74; PULSE 104; RESP 16; TEMP 36.3; O2SAT 94
--- NOTE | 2022-06-29 14:16 | ED_ITS ---
HPI - General Adult General Time Seen by Provider: 14:17 Date Seen: 06/29/22 Chief complaint: Abdominal Pain Stated complaint: C-Diff, diarrhea Time Seen by Provider: 06/29/22 14:09 Source: patient Mode of arrival: ambulatory Limitations: no limitations History of Present Illness HPI narrative: 22-year-old female to male transgender patient who comes in today with abdominal pain. Was diagnosed with C diff a couple weeks ago, still on vancomycin. Was doing well until today when he started having vomiting, watery stools, and some upper abdominal pain. No fever. No urinary symptoms. Has not taken anything for symptoms. Related Data Home Medications Medication Instructions Recorded Confirmed aripiprazole 5 mg tablet 5 mg PO DAILY 04/02/22 06/15/22 methylphenidate HCl 30 mg biphasic 30 mg PO DAILY 04/02/22 06/15/22 50-50 capsule,extended release (Ritalin LA) montelukast 10 mg tablet 10 mg PO DAILY 04/02/22 06/15/22 sertraline 100 mg tablet 100 mg PO DAILY 04/02/22 06/15/22 sertraline 25 mg tablet 25 mg PO DAILY 04/02/22 06/15/22 testosterone enanthate 200 mg/mL 50 mg subcut Q7D 04/02/22 06/15/22 intramuscular oil trazodone 150 mg tablet 150 mg PO HS 04/02/22 06/15/22 gabapentin 100 mg capsule 100 mg PO TID PRN 06/11/22 06/15/22 fluticasone furoate 200 1 inh inhalation DAILY 06/15/22 06/15/22 mcg-vilanterol 25 mcg/dose inhalation powder (Breo Ellipta) fluticasone propionate 50 1 spray intranasal DAILY PRN 06/15/22 06/15/22 mcg/actuation nasal spray,suspension vancomycin 125 mg capsule 125 mg PO QID 06/15/22 06/15/22 Previous Rx's Medication Instructions Recorded albuterol sulfate 90 mcg/actuation 2 puff inhalation 6XD PRN 06/09/22 aerosol inhaler shortness of breath or wheezing #8.5 grams ipratropium 0.5 mg-albuterol 3 mg 3 ml inhalation Q6H PRN #90 mL 06/09/22 (2.5 mg base)/3 mL nebulization soln prochlorperazine maleate 10 mg 10 mg PO Q6H PRN #20 tabs 06/29/22 tablet (Compazine) Allergies Allergy/AdvReac Type Severity Reaction Status Date / Time ondansetron [From Zofran] AdvReac Verified 06/11/22 10:33 [facility] Medical History (Updated 06/29/22 @ 16:05 by Enrique Chase MD) ADHD Anxiety Asthma Breast removal, prophylactic Community acquired pneumonia Depression Tobacco dependence Traumatic brain injury Surgical History (Updated 06/15/22 @ 11:27 by Millicent Hayes RN) [place] teeth removed Social History Highest level of school completed/degree received: high school graduate Smoking Status: Former smoker Do you use any of these nicotine containing products: E-Cigarettes and Vaping Products Nicotine containing products detail: Frequently Vapes Second hand tobacco smoke exposure: No How often do you have a drink containing alcohol: monthly or less How many standard drinks containing alcohol do you have on a typical day: 1 or 2 How often do you have six or more drinks on one occasion: Never AUDIT-C Alcohol total score: 1 Non-prescribed substance use: marijuana (any form) Non-prescribed substance use details: medical marijuana card Caffeine: No (Rarely) Do you think of yourself as: straight/heterosexual Gender Identity: male service: No Exam Narrative: Exam Narrative: General: Well-developed and well-nourished, no acute distress Head: Atraumatic and normocephalic Eyes: Pupils are equal reactive, extraocular motions intact, conjunctiva clear ENT: External nose and ears are normal, posterior pharynx without erythema or exudate Neck: No midline cervical tenderness, full spontaneous range of motion the nec k, trachea midline, no adenopathy Heart: Tachycardic but regular, no murmurs Lungs: Clear to auscultation bilaterally without wheezes or crackles Abdomen: Soft, mild epigastric tenderness, nondistended with active bowel sounds Musculoskeletal: No tenderness, deformity, or edema Neurologic: Awake, alert, and oriented x3, no gross focal neurologic deficits, cranial nerves intact as tested Psych: Mood and affect are appropriate Skin: No rashes Const: Vital Signs, click to edit/add: Vital Signs - 24 hr 06/29/22 13:27 06/29/22 15:20 Temperature 97.4 F L Pulse Rate [Right Pulse Oximeter] 104 H 86 Respiratory Rate 16 Blood Pressure [Ri ght Upper Arm] 104/74 106/64 Pulse Oximetry 94 95 Oxygen Delivery Me thod Room Air Room Air Course Course Hospital Course: Patient seen and examined, prior records are reviewed. Patient recently diagnosed with C diff in stone vancomycin, now with nausea, vomiting, diarrhea. Mild epigastric tenderness. Labs are ordered along with fluids. As patient still is being treated for C diff, would not repeat C diff testing at this time. If labs are reassuring, no further advanced imaging is needed. Discussed this with the patient and he is agreeable. IV fluids, Benadryl, and Compazine are ordered. Reevaluation(s) Reevaluation #1: Labs generally reassuring, bilirubin slightly elevated as are AST and ALT. Blood pressure and heart rate improved after fluids. No indication for intra- abdominal imaging at this time. Patient is stable for discharge with continued medication to help with nausea. Time: 16:02 Vital Signs Vital signs: Initial Vital Signs Temperature 97.4 F L 06/29/22 13:27 Temperature Source Temporal Artery Scan 06/29/22 13:27 Pulse Rate 104 H 06/29/22 13:27 Pulse Rhythm 06/29/22 13:27 Respiratory Rate 16 06/29/22 13:27 Blood Pressure 104/74 06/29/22 13:27 Blood Pressure Mean 84 06/29/22 13:27 Blood Pressure Position Sitting 06/29/22 13:27 Pulse Oximetry 94 06/29/22 13:27 Oxygen Delivery Method 06/29/22 13:27 Vital Signs Temperature 97.4 F L 06/29/22 13:27 Pulse Rate 104 H 06/29/22 13:27 Respiratory Rate 16 06/29/22 13:27 Blood Pressure 104/74 06/29/22 13:27 Pulse Oximetry 94 06/29/22 13:27 Oxygen Delivery Method 06/29/22 13:27 Temperature 97.4 F L 06/29/22 13:27 Pulse Rate 86 06/29/22 15:20 Respiratory Rate 16 06/29/22 13:27 Blood Pressure 106/64 06/29/22 15:20 Pulse Oximetry 95 06/29/22 15:20 Oxygen Delivery Method 06/29/22 15:20 Medical Decision Making Lab Data Labs: Lab Results 06/29/22 06/29/22 Range/Units 15:00 15:00 WBC 10.65 (4.50-11.00) K/uL RBC 5.85 H (4.00-5.20) m/uL Hgb 16.7 H (12.0-16.0) gm/dL Hct 48.7 (33.0-51.0) % MCV 83 (80-100) fL MCH 29 (26-34) pg MCHC 34 (32-36) gm/dL RDW Coeff of Adriano 12.7 (11.5-15.5) % Plt Count 297 (140-440) K/uL Neut % (Auto) 55.2 (42.0-72.0) % Lymph % (Auto) 22.7 (20-44) % Crawford % (Auto) 7.2 (0.0-11.0) % Eos % (Auto) 13.8 H (0.0-7.0) % Baso % (Auto) 0.5 (0.0-3.0) % Neut # (Auto) 5.88 (1.7-7.0) K/uL Lymph # (Auto) 2.42 (0.90-2.90) K/uL Crawford # (Auto) 0.80 (0.00-0.90) K/UL Eos # (Auto) 1.50 H (0.00-0.50) K/uL Baso # (Auto) 0.05 (0.00-0.30) K/uL Abs Immat Gran (auto) 0.06 (0.00-0.30) K/uL Imm/Tot Granulo (auto) 0.6 % Sodium 139 (135-149) mmol/L Potassium 3.9 (3.6-5.1) mmol/L Chloride 107 (96-114) mmol/L Carbon Dioxide 23 (20-32) mmol/L BUN 9 (5-24) mg/dL Creatinine 0.8 (0.5-1.5) mg/dL Estimated Creat Clear 99.26 Estimated GFR 107 ml/min Glucose 79 (60-115) mg/dL Calcium 9.0 (8.4-10.6) mg/dL Total Bilirubin 1.8 H (0.1-1.5) mg/dL Direct Bilirubin 0.0 (0.0-0.5) mg/dL AST 41 H (12-35) U/L ALT 40 H (4-35) U/L Alkaline Phosphatase 86 (40-150) U/L Total Protein 7.6 (6.0-8.3) g/dL Albumin 4.6 (3.3-5.0) g/dL Lipase 39 (23-300) U/L Discharge Plan Discharge Clinical Impression: Colitis due to Clostridium difficile, Nausea & vomiting Patient Disposition: Home, Self-Care Condition: Stable Instructions: Acute Nausea and Vomiting (ED) Activity Level: No Restrictions Discharge Diet: Regular Prescriptions: New prochlorperazine maleate [Compazine] 10 mg tablet 10 mg PO Q6H PRNQty: 20 0RF No Action sertraline 100 mg tablet 100 mg PO DAILY Label Comments: TOTAL DOSE = 125 MG DAILY trazodone 150 mg tablet 150 mg PO HS Label Comments: TAKE 1 TABLET BY MOUTH EVERYDAY AT BEDTIME sertraline 25 mg tablet 25 mg PO DAILY Label Comments: TOTAL DOSE = 125 MG DAILY montelukast 10 mg tablet 10 mg PO DAILY testosterone enanthate 200 mg/mL oil 50 mg subcut Q7D Rx Instructions: FRIDAYS aripiprazole 5 mg tablet 5 mg PO DAILY Label Comments: TAKE 1 TABLET BY MOUTH EVERY DAY methylphenidate HCl [Ritalin LA] 30 mg capsule,ER biphasic 50-50 30 mg PO DAILY Label Comments: TAKE 1 CAPSULE BY MOUTH EVERY DAY albuterol sulfate 90 mcg/actuation HFA aerosol inhaler 2 puff inhalation 6XD PRN (Reason: shortness of breath or wheezing) Qty: 8.5 1RF ipratropium-albuterol 0.5 mg-3 mg(2.5 mg base)/3 mL solution for nebulization 3 ml inhalation Q6H PRNQty: 90 1RF gabapentin 100 mg capsule 100 mg PO TID PRN fluticasone furoate-vilanterol [Breo Ellipta] 200-25 mcg/dose blister with de vice 1 inh INHALATION DAILY Label Comments: INHALE 1 PUFF BY MOUTH EVERY DAY fluticasone propionate 50 mcg/actuation spray,suspension 1 spray INTRANASAL DAILY PRN vancomycin 125 mg capsule 125 mg PO QID Follow Up/Referrals: Shanthi Delgadillo MD [Primary Care Provider] - Stand Alone Forms: [employer] Info Instructions
--- OUTSIDE RECORDS SUMMARY | 2022-06-29 14:27 | XMS_ITS | Encounter Summary ---
:2000 Author Organization [employer] Address [address] [address] Phone Care Team Providers Name Role Phone Elsewhere, Pcp Primary Care Provider Unavailable Reason for Visit Reason Comments Update [facility] Encounter Details Date Type Department Care Team Description 05/21/2015 Abstract [facility] Abstract, Update ([facility] [address] [place] [address] Provider, [place] [address] [facility]) [phone] Social History Tobacco Use Types Packs/Day Years Used Date Smoking Tobacco: Never Assessed Sex Assigned at Date Recorded Not on file documented as of this encounter Plan of Treatment Not on filedocumented as of this encounter Visit Diagnoses Not on filedocumented in this encounter Care Teams Cancellation Clerk Relationship Specialty Start Date End Date Elsewhere, Pcp PCP - General 10/03/15 documented as of this encounter
--- OUTSIDE RECORDS SUMMARY | 2022-06-29 14:27 | XMS_ITS | Encounter Summary ---
:2000 Author Organization [employer] Address [address] [place] [address] Phone Care Team Providers Name Role Phone Elsewhere, Pcp Primary Care Provider Unavailable Encounter Details Date Type Department Care Team Description 12/07/2015 Scanned - Medical [facility] HIS Abstract, Reports [address] [facility] Provider, [place] [address] Social History Tobacco Use Types [...] on filedocumented in this encounter Care Teams Truck Repair Supervisor Relationship Specialty Start Date End Date Elsewhere, Pcp PCP - General 10/03/15 documented as of this encounter
--- OUTSIDE RECORDS SUMMARY | 2022-06-29 14:27 | XMS_ITS | Clinical Summary ---
:2000 Author Organization [employer] Address [address] [address] Phone Care Team Providers Name Role Phone [...] Comments Blood Pressure 92/53 10/07/2015 7:15 PM REPAIR SPECIALIST Pulse 77 10/07/2015 7:15 PM REPAIR SPECIALIST Temperature 36.6 ??C (97.9 ??F) 10/07/2015 7:15 PM REPAIR SPECIALIST Respiratory Rate 16 10/07/2015 9:00 PM REPAIR SPECIALIST Oxygen Saturation 100% 10/06/2015 8:58 AM REPAIR SPECIALIST Inhaled Oxygen Concentration - - Weight 49.7 kg (109 lb 9.1 oz) 10/03/2015 2:19 PM REPAIR SPECIALIST Height 165.4 cm (5' 5.12) 10/03/2015 2:19 PM REPAIR SPECIALIST Body Mass Index 18.17 10/03/2015 2:19 PM REPAIR SPECIALIST Plan of Treatment Health Maintenance Due Date [...] / Group Dates BCBS OTHER BCBS OTHER [id number] 2019-Prese [address] [place] [address] BCBS OTHER BCBS OTHER [id number] 2019-Prese [address] [place] [address] Care Teams Airline Counter Agent Relationship Specialty Start Date End Date Elsewhere, Pcp PCP - General 10/03/15
--- OUTSIDE RECORDS SUMMARY | 2022-06-29 14:27 | XMS_ITS | Encounter Summary ---
:2000 Author Organization [employer] Address [address] [address] Phone Care Team Providers Name Role Phone Elsewhere, Pcp Primary Care Provider Unavailable Reason for Visit Reason Comments Update [facility] [place] Encounter Details Date Type Department Care Team Description 06/25/2015 Abstract [facility] HIS Abstract, Update ([facility] [address] [place] [address] MD Sidney [facility] [address]) [phone] Social History Tobacco Use Types Packs/Day Years Used Date Smoking Tobacco: Never Assessed Sex Assigned at Date Recorded Not on file documented as of this encounter Plan of Treatment Not on filedocumented as of this encounter Visit Diagnoses Not on filedocumented in this encounter Care Teams Credit Card Clerk Relationship Specialty Start Date End Date Elsewhere, Pcp PCP - General 10/03/15 documented as of this encounter
--- OUTSIDE RECORDS SUMMARY | 2022-06-29 14:27 | XMS_ITS | Encounter Summary ---
:2000 Author Organization [employer] Address [address] [address] Phone Care Team Providers Name Role Phone Elsewhere, Pcp Primary Care Provider Unavailable Reason for Visit Reason Comments Update [facility] [place] Encounter Details Date Type Department Care Team Description 10/03/2015 Abstract [facility] Abstract, Update ([facility] [address] [place] [address] MD Sidney [facility] [place] [address]) [phone] Social History Tobacco Use Types Packs/Day Years [...] on filedocumented in this encounter Care Teams Emergency Medicine Specialist Relationship Specialty Start Date End Date Elsewhere, Pcp PCP - General 10/03/15 documented as of this encounter
--- OUTSIDE RECORDS SUMMARY | 2022-06-29 14:27 | XMS_ITS | Encounter Summary ---
:2000 Author Organization [employer] Address [address] [address] Phone Care Team Providers Name Role Phone Elsewhere, Pcp Primary Care Provider Unavailable Reason for Visit Reason Comments Update [facility] [facility] Encounter Details Date Type Department Care Team Description 09/21/2015 Abstract [facility] HIS Abstract, Update ([employer]) [address] [facility] Provider, [place] [address] Social History Tobacco Use Types Packs/Day Years Used Date Smoking Tobacco: Never Assessed Sex Assigned at Date Recorded Not on file documented as of this encounter Plan of Treatment Not on filedocumented as of this encounter Visit Diagnoses Not on filedocumented in this encounter Care Teams Supervisor Type Photography Relationship Specialty Start Date End Date Elsewhere, Pcp PCP - General 10/03/15 documented as of this encounter
--- OUTSIDE RECORDS SUMMARY | 2022-06-29 14:27 | XMS_ITS | Encounter Summary ---
:2000 Author Organization [employer] Address [address] [address] Phone Care Team Providers Name Role Phone Elsewhere, Pcp Primary Care Provider Unavailable Reason for Visit Reason Comments External Lab Results Encounter Details Date Type Department Care Team Description 02/27/2017 Abstract [facility] HIS Abstract, Provider, External Lab Results [facility] [place] [address] Social History Tobacco Use Types [...] in this encounter Results EXTERNAL TSH (02/25/2017) P athologist Signature EXTERNAL TSH 2.370 0.358 - OUTSIDE 3.740 LABORATORY uIU/mL Provider Abstract MD [facility] Performing Organization Address City/State/ZIP Code Phon e Number OUTSIDE LABORATORY (ABNORMAL) EXTERNAL COMPR MET PANEL (02/25/2017) P athologist Signature EXTERNAL SODIUM 141 140 - [...] - 11.0 OUTSIDE K/uL LABORATORY Comment: (see [facility] lab scanned on 02/24/2017) EXTERNAL RBC [...] on filedocumented in this encounter Care Teams Digital Media Analyst Relationship Specialty Start Date End Date Elsewhere, Pcp PCP - General 10/03/15 documented as of this encounter
--- OUTSIDE RECORDS SUMMARY | 2022-06-29 14:27 | XMS_ITS | Encounter Summary ---
:2000 Author Organization [employer] Address [address] [address] Phone Care Team Providers Name Role Phone [...] on filedocumented in this encounter Care Teams Manager Of Planning Relationship Specialty Start Date End Date Elsewhere, Pcp PCP - General 10/03/15 documented as of this encounter
[2022-06-29 15:20] VITALS: BP 106/64; PULSE 86; O2SAT 95
[2022-06-29] MEDS: 0.9 % SODIUM CHLORIDE 1000 ml 1,000 ML IV (15:20)
[2022-06-29] MEDS: diphenhydrAMINE 50 MG/ML inj 25 MG IVP (15:25)
[2022-06-29] MEDS: PROCHLORPERAZINE 5 MG/ML VIAL 10 MG IV (15:25)
[2022-06-29 15:28] LABS: Basophils Absolute Auto 0.05 K/uL (0.00-0.30); Basophils Percent Auto 0.5 % (0.0-3.0); Eosinophils Percent Auto 13.8 % (0.0-7.0); Hematocrit 48.7 % (33.0-51.0); Hemoglobin* 16.7 gm/dL (12.0-16.0); Immature Granulocytes Abs Auto 0.06 K/uL (0.00-0.30); Immature Granulocytes Pct Auto 0.6 %; Lymphocytes Absolute Auto 2.42 K/uL (0.90-2.90); Lymphocytes Percent Auto 22.7 % (20-44); Mean Corpuscular HGB Conc 34 gm/dL (32-36); Mean Corpuscular Hemoglobin 29 pg (26-34); Mean Corpuscular Volume 83 fL (80-100); Monocytes Percent Auto 7.2 % (0.0-11.0); Neutrophils Absolute Auto 5.88 K/uL (1.7-7.0); Neutrophils Percent Auto 55.2 % (42.0-72.0); Platelet Count* 297 K/uL (140-440); RDW Coefficient of Variation % 12.7 % (11.5-15.5); Red Blood Count 5.85 m/uL (4.00-5.20); White Blood Count* 10.65 K/uL (4.50-11.00)
[2022-06-29 15:31] LABS: Slide Review Reflex No
[2022-06-29 15:48] LABS: Albumin* 4.6 g/dL (3.3-5.0); Chloride* 107 mmol/L (96-114)
[2022-06-29 15:49] LABS: Potassium* 3.9 mmol/L (3.6-5.1); Sodium* 139 mmol/L (135-149)
[2022-06-29 15:51] LABS: Alkaline Phosphatase* 86 U/L (40-150); Aspartate Amino Transferase* 41 U/L (12-35); Bilirubin Total* 1.8 mg/dL (0.1-1.5); Blood Urea Nitrogen* 9 mg/dL (5-24); Carbon Dioxide* 23 mmol/L (20-32); Creatinine* 0.8 mg/dL (0.5-1.5); Est. Creatinine Clearance* 99.26; Estimated Glomerular Filt Rate 107 ml/min; Glucose* 79 mg/dL (60-115); Lipase* 39 U/L (23-300); Total Protein* 7.6 g/dL (6.0-8.3)
[2022-06-29 15:52] LABS: Alanine Aminotransferase* 40 U/L (4-35)
[2022-06-29 16:00] VITALS: BP 108/70; PULSE 78; O2SAT 96
== END 2022-06-29 16:26 | disposition home or self-care (01) ==
PROVIDERS: Emergency Provider Family Medicine; PCP Family Medicine
DX: K52.9 Noninfective gastroenteritis and colitis, unspecified (principal); A04.72 Enterocolitis due to Clostridium difficile, not specified as recurrent
CPT/HCPCS: 36415; 80048; 80076; 83690; 85025; 96374; 96375; 99283; 99284; J0780; J1200; J7030

== ENCOUNTER 2022-07-02 16:53 | Emergency (ER) | payer BC, MEDICAID, SELFPAY ==
[2022-07-02 17:03] VITALS: BP 110/67; PULSE 110; RESP 24; TEMP 36.2; O2SAT 96; BMI 29.1
--- NOTE | 2022-07-02 17:40 | CRLHL7_ITS ---
For Patients: As a result of the Cures Act, medical imaging exams and procedure reports are released immediately into your electronic medical record. You may view this report before your referring provider. If you have questions, please contact your health care provider. INDICATION: Shortness of breath TECHNIQUE: Chest radiograph 1 view COMPARISON: 06/11/2022 FINDINGS: Cardiovascular and mediastinum: The heart silhouette is normal in size and morphology. The mediastinum is normal in appearance. Lungs and pleural spaces: Both lungs are unremarkable in appearance. No sign of pleural effusion seen. No pneumothorax is identified. Bones and soft tissues: No significant findings. IMPRESSION: 1. No acute cardiopulmonary disease is seen. Dictated by Gus Escobedo MD @ 07/02/2022 7:02:59 PM Dictated by: Gus Escobedo MD @ 07/02/2022 19:03:04 (Electronically Signed)
[2022-07-02] MEDS: IPRAT-ALBUT 0.5-2.5 MG/3 ML NEB 1 NEB IH (17:56)
--- OUTSIDE RECORDS SUMMARY | 2022-07-02 18:07 | XMS_ITS | Encounter Summary ---
:2000 Author Organization [employer] Address [address] [address] Phone Care Team Providers Name Role Phone Elsewhere, Pcp Primary Care Provider Unavailable Reason for Visit Reason Comments Update [facility] [place] Encounter Details Date Type Department Care Team Description 10/03/2015 Abstract [facility], Update ([facility] [address] [place] [address] MD Sidney [facility] [place] [address]) [phone] Social History Tobacco Use Types Packs/Day Years [...] on filedocumented in this encounter Care Teams Poultry Service Technician Relationship Specialty Start Date End Date Elsewhere, Pcp PCP - General 10/03/15 documented as of this encounter
--- OUTSIDE RECORDS SUMMARY | 2022-07-02 18:07 | XMS_ITS | Encounter Summary ---
:2000 Author Organization [employer] Address [address] [address] Phone Care Team Providers Name Role Phone Elsewhere, Pcp Primary Care Provider Unavailable Reason for Visit Reason Comments Update [employer] [facility] Encounter Details Date Type Department Care Team Description 09/21/2015 Abstract [facility] HIS Abstract, Update ([facility] [employer]) [address] [facility] Provider, [place] [address] Social History Tobacco Use Types Packs/Day Years Used Date Smoking Tobacco: Never Assessed Sex Assigned at Date Recorded Not on file documented as of this encounter Plan of Treatment Not on filedocumented as of this encounter Visit Diagnoses Not on filedocumented in this encounter Care Teams Career Placement Services Counselor Relationship Specialty Start Date End Date Elsewhere, Pcp PCP - General 10/03/15 documented as of this encounter
--- OUTSIDE RECORDS SUMMARY | 2022-07-02 18:07 | XMS_ITS | Encounter Summary ---
:2000 Author Organization [employer] Address [address] [address] Phone Care Team Providers Name Role Phone Elsewhere, Pcp Primary Care Provider Unavailable Reason for Visit Reason Comments Update [facility] Encounter Details Date Type Department Care Team Description 05/21/2015 Abstract [facility], Update (MAX HONG [address] [place] [address] [place], [place] [address] [facility]) [phone] Social History Tobacco Use Types Packs/Day Years Used Date Smoking Tobacco: Never Assessed Sex Assigned at Date Recorded Not on file documented as of this encounter Plan of Treatment Not on filedocumented as of this encounter Visit Diagnoses Not on filedocumented in this encounter Care Teams Head Pastry Chef Relationship Specialty Start Date End Date Elsewhere, Pcp PCP - General 10/03/15 documented as of this encounter
--- OUTSIDE RECORDS SUMMARY | 2022-07-02 18:07 | XMS_ITS | Encounter Summary ---
:2000 Author Organization [employer] Address [address] [address] Phone Care Team Providers Name Role Phone [...] on filedocumented in this encounter Care Teams Social Studies Department Chair Relationship Specialty Start Date End Date Elsewhere, Pcp PCP - General 10/03/15 documented as of this encounter
--- OUTSIDE RECORDS SUMMARY | 2022-07-02 18:07 | XMS_ITS | Encounter Summary ---
:2000 Author Organization [employer] Address [address] [place] [address] Phone Care Team Providers Name Role Phone Elsewhere, Pcp Primary Care Provider Unavailable Encounter Details Date Type Department Care Team Description 12/07/2015 Scanned - Medical [facility] HIS Abstract, Reports [address] [facility] Provider, [place] [address] Social History Tobacco Use Types [...] on filedocumented in this encounter Care Teams Coal Mine Inspector Relationship Specialty Start Date End Date Elsewhere, Pcp PCP - General 10/03/15 documented as of this encounter
--- OUTSIDE RECORDS SUMMARY | 2022-07-02 18:07 | XMS_ITS | Clinical Summary ---
:2000 Author Organization [employer] Address [address] [address] Phone Care Team Providers Name Role Phone [...] Comments Blood Pressure 92/53 10/07/2015 7:15 PM UROLOGY SURGEON Pulse 77 10/07/2015 7:15 PM UROLOGY SURGEON Temperature 36.6 ??C (97.9 ??F) 10/07/2015 7:15 PM UROLOGY SURGEON Respiratory Rate 16 10/07/2015 9:00 PM UROLOGY SURGEON Oxygen Saturation 100% 10/06/2015 8:58 AM UROLOGY SURGEON Inhaled Oxygen Concentration - - Weight 49.7 kg (109 lb 9.1 oz) 10/03/2015 2:19 PM UROLOGY SURGEON Height 165.4 cm (5' 5.12) 10/03/2015 2:19 PM UROLOGY SURGEON Body Mass Index 18.17 10/03/2015 2:19 PM UROLOGY SURGEON Plan of Treatment Health Maintenance Due Date [...] / Group Dates BCBS OTHER BCBS OTHER [id number] 2019-Prese [address] [place] [address] BCBS OTHER BCBS OTHER [id number] 2019-Prese [address] [place] [address] Care Teams Passenger Coach Driver Relationship Specialty Start Date End Date Elsewhere, Pcp PCP - General 10/03/15
--- OUTSIDE RECORDS SUMMARY | 2022-07-02 18:07 | XMS_ITS | Encounter Summary ---
:2000 Author Organization [employer] Address [address] [address] Phone Care Team Providers Name Role Phone Elsewhere, Pcp Primary Care Provider Unavailable Reason for Visit Reason Comments External Lab Results Encounter Details Date Type Department Care Team Description 02/27/2017 Abstract [facility] HIS Abstract, Provider, External Lab Results [address] [facility] [place] [address] Social History Tobacco Use Types [...] - 11.0 OUTSIDE K/uL LABORATORY Comment: (see [facility] lab scanned on 02/24/2017) EXTERNAL [...] on filedocumented in this encounter Care Teams Business Objects Report Developer Relationship Specialty Start Date End Date Elsewhere, Pcp PCP - General 10/03/15 documented as of this encounter
--- OUTSIDE RECORDS SUMMARY | 2022-07-02 18:07 | XMS_ITS | Encounter Summary ---
:2000 Author Organization [employer] Address [address] [place] [address] Phone Care Team Providers Name Role Phone Elsewhere, Pcp Primary Care Provider Unavailable Encounter Details Date Type Department Care Team Description 02/27/2017 Scanned - Medical [facility] HIS Abstract, Reports [address] [facility] Provider, [place] [address] Social History Tobacco Use Types [...] on filedocumented in this encounter Care Teams Hydro Station Operator Relationship Specialty Start Date End Date Elsewhere, Pcp PCP - General 10/03/15 documented as of this encounter
--- OUTSIDE RECORDS SUMMARY | 2022-07-02 18:07 | XMS_ITS | Encounter Summary ---
:2000 Author Organization [employer] Address [address] [address] Phone Care Team Providers Name Role Phone Elsewhere, Pcp Primary Care Provider Unavailable Reason for Visit Reason Comments Update [facility] [place] Encounter Details Date Type Department Care Team Description 06/25/2015 Abstract [facility], Update ([facility] [address] [place] [address] MD Sidney [facility] AND [address]) [phone] Social History Tobacco Use Types Packs/Day Years Used Date Smoking Tobacco: Never Assessed Sex Assigned at Date Recorded Not on file documented as of this encounter Plan of Treatment Not on filedocumented as of this encounter Visit Diagnoses Not on filedocumented in this encounter Care Teams Gre Tutor Relationship Specialty Start Date End Date Elsewhere, Pcp PCP - General 10/03/15 documented as of this encounter
--- NOTE | 2022-07-02 18:20 | ED.SOB ---
HPI - SOB/Dyspnea General Date Seen: 07/02/22 Chief Complaint: Shortness of Breath/Dyspnea Stated Complaint: Trouble Breathing Time Seen by Provider: 07/02/22 17:23 Source: patient Mode of arrival: ambulatory Limitations: no limitations History of Present Illness HPI Narrative: Patient is a 22-year-old female who presents here with shortness of breath, slight cough, he did have 1 episode to of nausea vomiting today, history of asthma has been using his inhaler 2 to 3 times a day, just feels it is not working, recently I saw him here and placed him on prednisone, he then he came back in and actually got hospitalized for a couple days secondary to his asthma. He has not been smoking is not smoked marijuana in the last week. Only inhaler uses albuterol, denies any chest pressure, any leg swelling, MD elicited complaint: shortness of breath and cough Pertinent past history: asthma Onset (ago): day(s) Timing: progressively worsening Severity: moderate Exacerbating factors: movement Relieving factors: bronchodilators Known history of: asthma Associated symptoms: denies other symptoms Treatment prior to arrival: none Related Data Home oxygen amount: none Home Medications Medication Instructions Recorded Confirmed aripiprazole 5 mg tablet 5 mg PO DAILY 04/02/22 06/15/22 methylphenidate HCl 30 mg biphasic 30 mg PO DAILY 04/02/22 06/15/22 50-50 capsule,extended release (Ritalin LA) montelukast 10 mg tablet 10 mg PO DAILY 04/02/22 06/15/22 sertraline 100 mg tablet 100 mg PO DAILY 04/02/22 06/15/22 sertraline 25 mg tablet 25 mg PO DAILY 04/02/22 06/15/22 testosterone enanthate 200 mg/mL 50 mg subcut Q7D 04/02/22 06/15/22 intramuscular oil trazodone 150 mg tablet 150 mg PO HS 04/02/22 06/15/22 gabapentin 100 mg capsule 100 mg PO TID PRN 06/11/22 06/15/22 fluticasone furoate 200 1 inh inhalation DAILY 06/15/22 06/15/22 mcg-vilanterol 25 mcg/dose inhalation powder (Breo Ellipta) fluticasone propionate 50 1 spray intranasal DAILY PRN 06/15/22 06/15/22 mcg/actuation nasal spray,suspension vancomycin 125 mg capsule 125 mg PO QID 06/15/22 06/15/22 Previous Rx's Medication Instructions Recorded albuterol sulfate 90 mcg/actuation 2 puff inhalation 6XD PRN 06/09/22 aerosol inhaler shortness of breath or wheezing #8.5 grams ipratropium 0.5 mg-albuterol 3 mg 3 ml inhalation Q6H PRN #90 mL 06/09/22 (2.5 mg base)/3 mL nebulization soln prochlorperazine maleate 10 mg 10 mg PO Q6H PRN #20 tabs 06/29/22 tablet (Compazine) albuterol sulfate 90 mcg/actuation 2 puff inhalation Q6H PRN 07/02/22 aerosol inhaler (ProAir HFA) shortness of breath or wheezing #6.7 grams albuterol sulfate 90 mcg/actuation 2 inh inhalation Q6H #1 ea 07/02/22 breath activated powder inhaler,sensor (Proair Digihaler) Allergies Allergy/AdvReac Type Severity Reaction Status Date / Time ondansetron [From Zofran] AdvReac Verified 06/11/22 10:33 Review of Systems Status of ROS: Reports: 10 or more systems reviewed and unremarkable except as noted in History and below [facility] Medical History ADHD Anxiety Asthma Breast removal, prophylactic Community acquired pneumonia Depression Tobacco dependence Traumatic brain injury Surgical History [place] teeth removed Social History Highest level of school completed/degree received: high school graduate Smoking Status: Former smoker Do you use any of these nicotine containing products: E-Cigarettes and Vaping Products Nicotine containing products detail: Frequently Vapes Second hand tobacco smoke exposure: No How often do you have a drink containing alcohol: monthly or less How many standard drinks containing alcohol do you have on a typical day: 1 or 2 How often do you have six or more drinks on one occasion: Never AUDIT-C Alcohol total score: 1 Non-prescribed substance use: marijuana (any form) Non-prescribed substance use details: medical marijuana card Caffeine: No (Rarely) Do you think of yourself as: straight/heterosexual Gender Identity: male service: No Exam Narrative: Exam Narrative: Patient is seen in room 1, he is speaking to me in full sentences but is audibly wheezing. Pupils are equal round reactive to light, there is no scleral icterus redness, TMs are normal, oropharynx is normal there is no adenopathy anterior posterior chains, neck is supple full range of motion, with a expiratory wheezes in all lung lim, no crackles are noted, heart sounds no clicks murmurs or gallops S1-S2 is normal, there is no S3-S4 clicks murmurs, abdomen is soft and obese there is no guarding, no organomegaly, bowel sounds are normal, extremities are all normal with no pitting edema swelling, negative Homans signs, no rashes, no evidence of Const: Vital Signs, click to edit/add: Vital Signs - 24 hr 07/02/22 17:03 Temperature 97.1 F L Pulse Rate [Pulse Oximeter] 110 H Respiratory Rate 24 Blood Pressure [Ri ght Upper Arm] 110/67 Pulse Oximetry 96 Oxygen Delivery Me thod Room Air Documenting provider has reviewed patient's vital signs: yes Course Course Hospital Course: Triple swab was negative, improvement after the DuoNeb, I went back in and spoke to Socrates I think going home on some prednisone, but follow-up would be very important here, as he may need some longer-acting inhaled steroids. We went over signs symptoms of worsening, come back if be seen if these occur. Vital Signs Vital signs: Initial Vital Signs Temperature 97.1 F L 07/02/22 17:03 Temperature Source Temporal Artery Scan 07/02/22 17:03 Pulse Rate 110 H 07/02/22 17:03 Respiratory Rate 24 07/02/22 17:03 Blood Pressure 110/67 07/02/22 17:03 Blood Pressure Mean 81 07/02/22 17:03 Blood Pressure Position Sitting 07/02/22 17:03 Pulse Oximetry 96 07/02/22 17:03 Oxygen Delivery Method 07/02/22 17:03 Vital Signs Temperature 97.1 F L 07/02/22 17:03 Pulse Rate 110 H 07/02/22 17:03 Respiratory Rate 24 07/02/22 17:03 Blood Pressure 110/67 07/02/22 17:03 Pulse Oximetry 96 07/02/22 17:03 Oxygen Delivery Method 07/02/22 17:03 Temperature 97.1 F L 07/02/22 17:03 Pulse Rate 110 H 07/02/22 17:03 Respiratory Rate 24 07/02/22 17:03 Blood Pressure 110/67 07/02/22 17:03 Pulse Oximetry 96 07/02/22 17:03 Oxygen Delivery Method 07/02/22 17:03 MDM - SOB/Dyspnea MDM Narrative Medical decision making narrative: Life-threatening differential diagnosis includes occluded COPD exacerbation, pulmonary edema, acute coronary syndromes, pulmonary embolism, pneumonia, and pneumothorax. Other differential diagnosis considerations include asthma, bronchitis as well as other etiologies Lab Data Labs: Lab Results 07/02/22 Range/Units 18:11 SARS-CoV-2 (PCR) Negative SARS-CoV-2 (Negative) Influenza Type A (PCR) Negative PCR FLU A (Negative) Influenza Type B (PCR) Negative PCR FLU B (Negative) RSV (PCR) Negative PCR RSV (Negative) Discharge Plan Discharge Clinical Impression: Asthma with acute exacerbation Patient Disposition: Home, Self-Care Condition: Stable Instructions: Asthma (ED) Additional Instructions: Home rest use of prednisone for the next 5 days, mandatory follow-up with primary care at the end of this, you may need some stronger corticosteroid inhalers, report back here if increasing shortness of breath, I gave you another prescription for I meter dose inhaler if you needed. Prescriptions: New Proair Digihaler 90 mcg/actuation aero powdr breath act w/sensor 2 inh inhalation Q6H Qty: 1 2RF albuterol sulfate [ProAir HFA] 90 mcg/actuation HFA aerosol inhaler 2 puff inhalation Q6H PRN (Reason: shortness of breath or wheezing) Qty: 6.7 0RF No Action sertraline 100 mg tablet 100 mg PO DAILY Label Comments: TOTAL DOSE = 125 MG DAILY trazodone 150 mg tablet 150 mg PO HS Label Comments: TAKE 1 TABLET BY MOUTH EVERYDAY AT BEDTIME sertraline 25 mg tablet 25 mg PO DAILY Label Comments: TOTAL DOSE = 125 MG DAILY montelukast 10 mg tablet 10 mg PO DAILY testosterone enanthate 200 mg/mL oil 50 mg subcut Q7D Rx Instructions: FRIDAYS aripiprazole 5 mg tablet 5 mg PO DAILY Label Comments: TAKE 1 TABLET BY MOUTH EVERY DAY methylphenidate HCl [Ritalin LA] 30 mg capsule,ER biphasic 50-50 30 mg PO DAILY Label Comments: TAKE 1 CAPSULE BY MOUTH EVERY DAY albuterol sulfate 90 mcg/actuation HFA aerosol inhaler 2 puff inhalation 6XD PRN (Reason: shortness of breath or wheezing) Qty: 8.5 1RF ipratropium-albuterol 0.5 mg-3 mg(2.5 mg base)/3 mL solution for nebulization 3 ml inhalation Q6H PRNQty: 90 1RF prochlorperazine maleate [Compazine] 10 mg tablet 10 mg PO Q6H PRNQty: 20 0RF gabapentin 100 mg capsule 100 mg PO TID PRN fluticasone furoate-vilanterol [Breo Ellipta] 200-25 mcg/dose blister with device 1 inh INHALATION DAILY Label Comments: INHALE 1 PUFF BY MOUTH EVERY DAY fluticasone propionate 50 mcg/actuation spray,suspension 1 spray INTRANASAL DAILY PRN vancomycin 125 mg capsule 125 mg PO QID Follow Up/Referrals: Shanthi Delgadillo MD [Primary Care Provider] - Stand Alone Forms: [facility] Info Instructions
[2022-07-02 19:02] LABS: PCR FLU A Negative PCR FLU A (Negative); PCR FLU B Negative PCR FLU B (Negative); PCR RSV Negative PCR RSV (Negative)
[2022-07-02 19:03] VITALS: PULSE 94; RESP 22; O2SAT 92
[2022-07-02 20:00] LABS: SARS PCR* Negative SARS-CoV-2 (Negative)
[2022-07-02] MEDS: predniSONE 10 MG TABLET 50 MG PO (20:24)
== END 2022-07-02 20:40 | disposition home or self-care (01) ==
PROVIDERS: Emergency Provider Family Medicine; PCP Family Medicine
DX: J45.901 Unspecified asthma with (acute) exacerbation (principal)
CPT/HCPCS: 71045; 87502; 87634; 87635; 94640; 99283; 99284; J7512

== ENCOUNTER 2022-08-08 09:56 | Outpatient (CLI) | payer BC, MEDICAID, SELFPAY ==
--- NOTE | 2022-08-08 10:15 | CRLHL7_ITS ---
For Patients: As a result of the Century Cures Act, medical imaging exams and procedure reports are released immediately into your electronic medical record. You may view this report before your referring provider. If you have questions, please contact your health care provider. Technique: Double-contrast esophagram performed after the uneventful administration of effervescent crystals and thick barium followed by thin barium. Fluoroscopy time 38 seconds. Indication: Comparison: None. Findings: Esophagus: Normal morphology and motility. No stricture or mass. Gastroesophageal reflux: None. Impression: Normal double-contrast esophagram. Dictated by Mika Alvarez MD @ 08/08/2022 11:31:32 AM (Electronically Signed)
--- OUTSIDE RECORDS SUMMARY | 2022-08-08 10:22 | XMS_ITS | Encounter Summary ---
:2000 Author Organization [employer] Address [address] [address] Phone Care Team Providers Name Role Phone Elsewhere, Pcp Primary Care Provider Unavailable Reason for Visit Reason Comments Update [facility] [place] Encounter Details Date Type Department Care Team Description 06/25/2015 Abstract [facility], Update ([facility] [address] [place] [address] MD Sidney [facility] AND [address]) [phone] Social History Tobacco Use Types Packs/Day Years Used Date Smoking Tobacco: Never Assessed Sex Assigned at Date Recorded Not on file documented as of this encounter Plan of Treatment Not on filedocumented as of this encounter Visit Diagnoses Not on filedocumented in this encounter Care Teams Slasher Machine Operator Relationship Specialty Start Date End Date Elsewhere, Pcp PCP - General 10/03/15 documented as of this encounter
--- OUTSIDE RECORDS SUMMARY | 2022-08-08 10:22 | XMS_ITS | Encounter Summary ---
:2000 Author Organization [employer] Address [address] [address] Phone Care Team Providers Name Role Phone Elsewhere, Pcp Primary Care Provider Unavailable Reason for Visit Reason Comments Update [facility] Encounter Details Date Type Department Care Team Description 05/21/2015 [facility], [facility] (MAX [facility]ONG [address] [place] [address] Provider, [place] [address] [facility]) [phone] Social History Tobacco Use Types Packs/Day Years Used Date Smoking Tobacco: Never Assessed Sex Assigned at Date Recorded Not on file documented as of this encounter Plan of Treatment Not on filedocumented as of this encounter Visit Diagnoses Not on filedocumented in this encounter Care Teams Set Off Blocker Relationship Specialty Start Date End Date Elsewhere, Pcp PCP - General 10/03/15 documented as of this encounter
--- OUTSIDE RECORDS SUMMARY | 2022-08-08 10:22 | XMS_ITS | Encounter Summary ---
:2000 Author Organization [employer] Address [address] [address] Phone Care Team Providers Name Role Phone Elsewhere, Pcp Primary Care Provider Unavailable Reason for Visit Reason Comments External Lab Results Encounter Details Date Type Department Care Team Description 02/27/2017 Abstract [facility] HIS Abstract, Provider, External Lab Results 400 [facility] [address] Social History Tobacco Use Types [...] - 11.0 OUTSIDE K/uL LABORATORY Comment: (see [facility] lab scanned on 02/24/2017) EXTERNAL RBC [...] on filedocumented in this encounter Care Teams Motor Equipment Captain Relationship Specialty Start Date End Date Elsewhere, Pcp PCP - General 10/03/15 documented as of this encounter
--- OUTSIDE RECORDS SUMMARY | 2022-08-08 10:22 | XMS_ITS | Clinical Summary ---
:2000 Author Organization [employer] Address [address] [address] Phone Care Team Providers Name Role Phone [...] Comments Blood Pressure 92/53 10/07/2015 7:15 PM PYTHON PROGRAMMER Pulse 77 10/07/2015 7:15 PM PYTHON PROGRAMMER Temperature 36.6 ??C (97.9 ??F) 10/07/2015 7:15 PM PYTHON PROGRAMMER Respiratory Rate 16 10/07/2015 9:00 PM PYTHON PROGRAMMER Oxygen Saturation 100% 10/06/2015 8:58 AM PYTHON PROGRAMMER Inhaled Oxygen Concentration - - Weight 49.7 kg (109 lb 9.1 oz) 10/03/2015 2:19 PM PYTHON PROGRAMMER Height 165.4 cm (5' 5.12) 10/03/2015 2:19 PM PYTHON PROGRAMMER Body Mass Index 18.17 10/03/2015 2:19 PM PYTHON PROGRAMMER Plan of Treatment Health Maintenance Due Date [...] / Group Dates BCBS OTHER BCBS OTHER [id number] 2019-Prese [address] [place] [address] BCBS OTHER BCBS OTHER [id number] 2019-Prese [address] [place] [address] Care Teams Regulatory Consultant Relationship Specialty Start Date End Date Elsewhere, Pcp PCP - General 10/03/15
--- OUTSIDE RECORDS SUMMARY | 2022-08-08 10:22 | XMS_ITS | Encounter Summary ---
:2000 Author Organization [employer] Address [address] [place] [address] Phone Care Team Providers Name Role Phone Elsewhere, Pcp Primary Care Provider Unavailable Encounter Details Date Type Department Care Team Description 12/07/2015 Scanned - Medical [facility] HIS Abstract, Reports [address] [facility] [facility] Provider, [place] [address] Social History Tobacco Use Types [...] on filedocumented in this encounter Care Teams Deployment Technician Relationship Specialty Start Date End Date Elsewhere, Pcp PCP - General 10/03/15 documented as of this encounter
--- OUTSIDE RECORDS SUMMARY | 2022-08-08 10:22 | XMS_ITS | Encounter Summary ---
:2000 Author Organization [employer] [facility] Address [address] [place] [address] Phone Care Team Providers Name Role Phone Elsewhere, Pcp Primary Care Provider Unavailable Encounter Details Date Type Department Care Team Description 02/27/2017 Scanned - Medical [facility] HIS Abstract, Reports [address] [facility] Provider, [place] [address] Social History Tobacco Use Types [...] on filedocumented in this encounter Care Teams Burr Picker Relationship Specialty Start Date End Date Elsewhere, Pcp PCP - General 10/03/15 documented as of this encounter
--- OUTSIDE RECORDS SUMMARY | 2022-08-08 10:22 | XMS_ITS | Encounter Summary ---
:2000 Author Organization [id number] [facility] Address [address] [address] Phone Care Team Providers Name Role Phone Elsewhere, Pcp Primary Care Provider Unavailable Reason for Visit Reason Comments Update [employer] [facility] Encounter Details Date Type Department Care Team Description 09/21/2015 Abstract [facility] HIS Abstract, Update ([employer]) 400 [facility] Provider, [place] [address] Social History Tobacco Use Types Packs/Day Years Used Date Smoking Tobacco: Never Assessed Sex Assigned at Date Recorded Not on file documented as of this encounter Plan of Treatment Not on filedocumented as of this encounter Visit Diagnoses Not on filedocumented in this encounter Care Teams Engineer Process Relationship Specialty Start Date End Date Elsewhere, Pcp PCP - General 10/03/15 documented as of this encounter
--- OUTSIDE RECORDS SUMMARY | 2022-08-08 10:22 | XMS_ITS | Encounter Summary ---
:2000 Author Organization [employer] Address [address] [address] Phone Care Team Providers Name Role Phone [...] filedocumented in this encounter Care Teams Digital Technician Relationship Specialty Start Date End Date Elsewhere, Pcp PCP - General 10/03/15 documented as of this encounter
--- OUTSIDE RECORDS SUMMARY | 2022-08-08 10:22 | XMS_ITS | Encounter Summary ---
:2000 Author Organization [employer] Address [address] [address] Phone Care Team Providers Name Role Phone Elsewhere, Pcp Primary Care Provider Unavailable Reason for Visit Reason Comments Update [facility] [place] Encounter Details Date Type Department Care Team Description 10/03/2015 Abstract [facility], Update ([facility] [address] [place] [address] MD Sidney [facility] [place] [address]) [phone] Social History Tobacco Use Types Packs/Day Years [...] on filedocumented in this encounter Care Teams Pathology Laboratory Technologist Relationship Specialty Start Date End Date Elsewhere, Pcp PCP - General 10/03/15 documented as of this encounter
== END 2022-08-08 09:57 | disposition home or self-care (01) ==
PROVIDERS: PCP Family Medicine; Visit Provider Internal Medicine Gastroenterology
DX: R10.11 Right upper quadrant pain (principal); R11.2 Nausea with vomiting, unspecified; R19.7 Diarrhea, unspecified; Z86.19 Personal history of other infectious and parasitic diseases
CPT/HCPCS: 74221

== ENCOUNTER 2022-08-08 19:46 | Emergency (ER) | payer BC, MEDICAID, SELFPAY ==
[2022-08-08 19:56] VITALS: BP 110/67; PULSE 105; RESP 20; TEMP 37.2; O2SAT 96; BMI 28.2
--- NOTE | 2022-08-08 20:21 | CRLHL7_ITS ---
For Patients: As a result of the Cures Act, medical imaging exams and procedure reports are released immediately into your electronic medical record. You may view this report before your referring provider. If you have questions, please contact your health care provider. INDICATION: Right lower abdomen pain, history clostridium difficile TECHNIQUE: CT Abdomen and pelvis with i.v. contrast. Coronal and sagittal reformats were obtained. CONTRAST: 85 mL Isovue 370 COMPARISON: 06/11/2022 FINDINGS: Lower chest: Unremarkable. Liver: Unremarkable. Spleen: Unremarkable. Pancreas: Unremarkable. Gallbladder: Unremarkable. Kidney: Unremarkable. No kidney or ureteral stones or obstruction seen. Adrenal: Unremarkable. Bowel: Dense oral contrast is seen throughout the colon causing extensive beam hardening artifact limits evaluation the bowel and adjacent soft tissues. The appendix cannot be visualized. Vascular: Unremarkable. Lymph: Unremarkable. Peritoneum: Unremarkable. No pneumoperitoneum is seen. No significant ascites is noted. Pelvis: Unremarkable. Soft tissue: Unremarkable. Bone: Unremarkable for age. IMPRESSION: 1. Dense oral contrast is seen throughout the colon causing extensive beam hardening artifact limits evaluation the bowel and adjacent soft tissues. Repeating the examination after colonic cleansing in 1-2 days may be helpful. Dictated by Gurjit Quezada MD @ 08/08/2022 9:47:09 PM Please note that all CT scans at this facility use dose modulation, iterative reconstruction, and/or weight-based dosing when appropriate to reduce radiation dose to as low as reasonably achievable. Dictated by: Gurjit Quezada MD @ 08/08/2022 21:47:15 (Electronically Signed)
--- OUTSIDE RECORDS SUMMARY | 2022-08-08 20:27 | XMS_ITS | Encounter Summary ---
:2000 Author Organization [employer] Address [address] [place] [address] Phone Care Team Providers Name Role Phone Elsewhere, Pcp Primary Care Provider Unavailable Encounter Details Date Type Department Care Team Description 02/27/2017 Scanned - Medical [facility] HIS Abstract, Reports [address] [facility] Provider, [place] [address] Social History Tobacco Use Types [...] on filedocumented in this encounter Care Teams Food Assembler Commissary Kitchen Relationship Specialty Start Date End Date Elsewhere, Pcp PCP - General 10/03/15 documented as of this encounter
--- OUTSIDE RECORDS SUMMARY | 2022-08-08 20:27 | XMS_ITS | Encounter Summary ---
:2000 Author Organization [employer] Address [address] [address] Phone Care Team Providers Name Role Phone Elsewhere, Pcp Primary Care Provider Unavailable Reason for Visit Reason Comments External Lab Results Encounter Details Date Type Department Care Team Description 02/27/2017 Abstract [facility] HIS Abstract, Provider, External Lab Results [address] [place] [address] Social History Tobacco Use Types [...] - 11.0 OUTSIDE K/uL LABORATORY Comment: (see [facility] lab scanned on 02/24/2017) EXTERNAL RBC [...] on filedocumented in this encounter Care Teams Commissioned Sales Associate Relationship Specialty Start Date End Date Elsewhere, Pcp PCP - General 10/03/15 documented as of this encounter
--- OUTSIDE RECORDS SUMMARY | 2022-08-08 20:27 | XMS_ITS | Clinical Summary ---
:2000 Author Organization [employer] Address [address] [address] Phone Care Team Providers Name Role Phone [...] Comments Blood Pressure 92/53 10/07/2015 7:15 PM ANGLE SHEARER Pulse 77 10/07/2015 7:15 PM ANGLE SHEARER Temperature 36.6 ??C (97.9 ??F) 10/07/2015 7:15 PM ANGLE SHEARER Respiratory Rate 16 10/07/2015 9:00 PM ANGLE SHEARER Oxygen Saturation 100% 10/06/2015 8:58 AM ANGLE SHEARER Inhaled Oxygen Concentration - - Weight 49.7 kg (109 lb 9.1 oz) 10/03/2015 2:19 PM ANGLE SHEARER Height 165.4 cm (5' 5.12) 10/03/2015 2:19 PM ANGLE SHEARER Body Mass Index 18.17 10/03/2015 2:19 PM ANGLE SHEARER Plan of Treatment Health Maintenance Due Date [...] / Group Dates BCBS OTHER BCBS OTHER [id number] 2019-Prese [address] [place] [address] BCBS OTHER BCBS OTHER [id number] 2019-Prese [address] [place] [address] Care Teams Electromyographic Technician Relationship Specialty Start Date End Date Elsewhere, Pcp PCP - General 10/03/15
--- OUTSIDE RECORDS SUMMARY | 2022-08-08 20:28 | XMS_ITS | Encounter Summary ---
:2000 Author Organization [employer] Address [address] [address] Phone Care Team Providers Name Role Phone Elsewhere, Pcp Primary Care Provider Unavailable Reason for Visit Reason Comments Update [facility] [place] Encounter Details Date Type Department Care Team Description 10/03/2015 Abstract [facility], Update ([facility] [address] [place] [address] MD Sidney [facility] [place] [address]) [phone] Social History Tobacco Use Types Packs/Day Years [...] on filedocumented in this encounter Care Teams Infusion Pharmacist Relationship Specialty Start Date End Date Elsewhere, Pcp PCP - General 10/03/15 documented as of this encounter
--- OUTSIDE RECORDS SUMMARY | 2022-08-08 20:28 | XMS_ITS | Encounter Summary ---
:2000 Author Organization [employer] Address [address] [address] Phone Care Team Providers Name Role Phone Elsewhere, Pcp Primary Care Provider Unavailable Reason for Visit Reason Comments Update [facility] [place] Encounter Details Date Type Department Care Team Description 06/25/2015 Abstract [facility] HIS Abstract, Update ([facility] [address] [place] [address] MD Sidney [facility] AND [address]) [phone] Social History Tobacco Use Types Packs/Day Years Used Date Smoking Tobacco: Never Assessed Sex Assigned at Date Recorded Not on file documented as of this encounter Plan of Treatment Not on filedocumented as of this encounter Visit Diagnoses Not on filedocumented in this encounter Care Teams Dairy Farm Supervisor Relationship Specialty Start Date End Date Elsewhere, Pcp PCP - General 10/03/15 documented as of this encounter
--- OUTSIDE RECORDS SUMMARY | 2022-08-08 20:28 | XMS_ITS | Encounter Summary ---
:2000 Author Organization [employer] Address [address] [place] [address] Phone Care Team Providers Name Role Phone Elsewhere, Pcp Primary Care Provider Unavailable Encounter Details Date Type Department Care Team Description 12/07/2015 Scanned - Medical [facility] HIS Abstract, Reports [address] [facility] Provider, [place] [address] Social History Tobacco Use Types [...] on filedocumented in this encounter Care Teams Crocheter Hand Relationship Specialty Start Date End Date Elsewhere, Pcp PCP - General 10/03/15 documented as of this encounter
--- OUTSIDE RECORDS SUMMARY | 2022-08-08 20:28 | XMS_ITS | Encounter Summary ---
:2000 Author Organization [employer] Address [address] [address] Phone Care Team Providers Name Role Phone Elsewhere, Pcp Primary Care Provider Unavailable Reason for Visit Reason Comments Update [employer] [place] Encounter Details Date Type Department Care Team Description 09/21/2015 Abstract [facility] HIS Abstract, Update ([employer]) [address] [facility] Provider, [place] [address] Social History Tobacco Use Types Packs/Day Years Used Date Smoking Tobacco: Never Assessed Sex Assigned at Date Recorded Not on file documented as of this encounter Plan of Treatment Not on filedocumented as of this encounter Visit Diagnoses Not on filedocumented in this encounter Care Teams Media Arts Professor Relationship Specialty Start Date End Date Elsewhere, Pcp PCP - General 10/03/15 documented as of this encounter
--- OUTSIDE RECORDS SUMMARY | 2022-08-08 20:28 | XMS_ITS | Encounter Summary ---
:2000 Author Organization [employer] Address [address] [address] Phone Care Team Providers Name Role Phone [...] on filedocumented in this encounter Care Teams Aerobics Teacher Relationship Specialty Start Date End Date Elsewhere, Pcp PCP - General 10/03/15 documented as of this encounter
[2022-08-08] MEDS: MORPHINE 4 MG/ML INJ IVP (20:34)
[2022-08-08] MEDS: 0.9 % SODIUM CHLORIDE 1000 ml 1,000 ML IV (20:35)
[2022-08-08] MEDS: KETOROLAC 15 MG/ML inj IVP (20:35)
[2022-08-08] MEDS: IPRAT-ALBUT 0.5-2.5 MG/3 ML NEB 1 NEB IH (20:35)
[2022-08-08 20:37] VITALS: O2SAT 99
[2022-08-08 20:38] VITALS: BP 113/70; PULSE 97; RESP 18; O2SAT 94
[2022-08-08 20:40] LABS: Appearance Urine Clear (Clear); Bilirubin Urine 1+ (Negative); Blood Urine Negative (Negative); Color Urine Yellow (Yellow); Glucose Urine Negative (Negative); Ketones Urine 1+ (Negative); Leukocyte Esterase Urine 1+ (Negative); Nitrite Urine Negative (Negative); Protein Urine Negative (Negative); Urobilinogen Urine 0.2 (0.2-1.0); pH Urine 6.5 (5.0-8.5)
[2022-08-08 20:45] LABS: HCG Qualitative* Negative (Negative)
[2022-08-08 20:52] LABS: Basophils Percent Auto 0.5 % (0.0-3.0); Chloride* 109 mmol/L (96-114); Eosinophils Percent Auto 4.2 % (0.0-7.0); Hematocrit 49.5 % (33.0-51.0); Hemoglobin* 17.1 gm/dL (12.0-16.0); Immature Granulocytes Pct Auto 0.3 %; Lymphocytes Percent Auto 23.7 % (20-44); Mean Corpuscular HGB Conc 35 gm/dL (32-36); Mean Corpuscular Hemoglobin 29 pg (26-34); Mean Corpuscular Volume 83 fL (80-100); Monocytes Percent Auto 8.5 % (0.0-11.0); Neutrophils Percent Auto 62.8 % (42.0-72.0); Platelet Count* 340 K/uL (140-440); Red Blood Count 5.95 m/uL (4.00-5.20); Sodium* 142 mmol/L (135-149); White Blood Count* 13.84 K/uL (4.50-11.00)
[2022-08-08 20:55] LABS: Blood Urea Nitrogen* 13 mg/dL (5-24); Carbon Dioxide* 25 mmol/L (20-32); Creatinine* 1.1 mg/dL (0.5-1.5); Estimated Glomerular Filt Rate 73 ml/min; Potassium* 3.9 mmol/L (3.6-5.1)
[2022-08-08 20:56] LABS: Calcium* 9.7 mg/dL (8.4-10.6); Glucose* 77 mg/dL (60-115)
[2022-08-08 20:58] LABS: C Reactive Protein* 0.6 mg/dL (0.5-1.0)
[2022-08-08 20:59] LABS: Slide Review Reflex No
[2022-08-08 21:19] LABS: RBC Urine 0-2 (0-2); Squamous Epithelial Cell Urine Few (None-Few); WBC Urine 0-2 (0-5)
[2022-08-08 21:27] LABS: Albumin* 4.8 g/dL (3.3-5.0)
[2022-08-08 21:30] LABS: Alkaline Phosphatase* 84 U/L (40-150); Aspartate Amino Transferase* 38 U/L (12-35); Bilirubin Direct* 0.1 mg/dL (0.0-0.5); Bilirubin Total* 1.5 mg/dL (0.1-1.5); Total Protein* 8.2 g/dL (6.0-8.3)
[2022-08-08 21:31] LABS: Alanine Aminotransferase* 32 U/L (4-35)
[2022-08-08 21:31] LABS: SARS PCR* Negative SARS-CoV-2 (Negative)
--- NOTE | 2022-08-08 21:57 | CRLHL7_ITS ---
For Patients: As a result of the Century Cures Act, medical imaging exams and procedure reports are released immediately into your electronic medical record. You may view this report before your referring provider. If you have questions, please contact your health care provider. INDICATION: Right lower quadrant/right adnexal pain. TECHNIQUE: Ultrasound pelvis transabdominal and transvaginal for better assessment or to better visualize the endometrium. Real-time sonographic images with spectral and color Doppler imaging of the ovaries were obtained. COMPARISON: CT abdomen/pelvis earlier same day dated 08/08/2022, CT chest/abdomen/pelvis dated 06/15/2022. FINDINGS: Uterus: 7.5 x 2.8 x 3.9 cm. Endometrium: Within normal limits. The endometrial thickness measures 0.5 cm. Mass: No uterine fibroids identified. Free fluid: No significant pelvic free fluid. Right ovary: 4.1 x 2.3 x 2.8 cm. No ovarian or adnexal masses. Normal arterial and venous blood flow. Left ovary: 4.0 x 2.4 x 2.7 cm. No ovarian or adnexal masses. Normal arterial and venous blood flow. IMPRESSION: No acute intrapelvic abnormality identified sonographically. Dictated by Umm Perez MD @ 08/08/2022 11:59:00 PM (Electronically Signed)
[2022-08-08 22:22] VITALS: TEMP 37.2
[2022-08-08 22:29] VITALS: BP 106/73; PULSE 86; RESP 18; O2SAT 94
[2022-08-08 23:57] VITALS: BP 110/67; PULSE 105; RESP 18; TEMP 37.2
--- NOTE | 2022-08-09 14:25 | ED_ITS ---
HPI - Abdominal Pain General Chief Complaint: Abdominal Pain Stated Complaint: Lower Right Abdominal Pain,Diarrhea Time Seen by Provider: 08/08/22 20:00 History of Present Illness HPI narrative: 22-year-old young man with now second day of intensifying sharp right lower abdominal pain. Hormonal transition from female to male. Does have a history of clostridium difficile infection. Has had now three episodes of diarrhea today. No blood. No fever. Since prior cdiff diagnosis has had morning nausea and vomiting. 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 No dysuria frequency or urgency. Pain preceded diarrhea. no recent abx. I note also to be labored in breathing. admittedly out of rescue inhaler for about a week and soa since then. wasn't due for refill. maintains that has been using controller inhaler. Related Data Home Medications Medication Instructions Recorded Confirmed aripiprazole 5 mg tablet 5 mg PO DAILY 04/02/22 06/15/22 methylphenidate HCl 30 mg biphasic 30 mg PO DAILY 04/02/22 06/15/22 50-50 capsule,extended release (Ritalin LA) montelukast 10 mg tablet 10 mg PO DAILY 04/02/22 06/15/22 sertraline 100 mg tablet 100 mg PO DAILY 04/02/22 06/15/22 sertraline 25 mg tablet 25 mg PO DAILY 04/02/22 06/15/22 testosterone enanthate 200 mg/mL 50 mg subcut Q7D 04/02/22 06/15/22 intramuscular oil trazodone 150 mg tablet 150 mg PO HS 04/02/22 06/15/22 gabapentin 100 mg capsule 100 mg PO TID PRN 06/11/22 06/15/22 fluticasone furoate 200 1 inh inhalation DAILY 06/15/22 06/15/22 mcg-vilanterol 25 mcg/dose inhalation powder (Breo Ellipta) fluticasone propionate 50 1 spray intranasal DAILY PRN 06/15/22 06/15/22 mcg/actuation nasal spray,suspension vancomycin 125 mg capsule 125 mg PO QID 06/15/22 06/15/22 Previous Rx's Medication Instructions Recorded albuterol sulfate 90 mcg/actuation 2 puff inhalation 6XD PRN 06/09/22 aerosol inhaler shortness of breath or wheezing #8.5 grams ipratropium 0.5 mg-albuterol 3 mg 3 ml inhalation Q6H PRN #90 mL 06/09/22 (2.5 mg base)/3 mL nebulization soln prochlorperazine maleate 10 mg 10 mg PO Q6H PRN #20 tabs 06/29/22 tablet (Compazine) albuterol sulfate 90 mcg/actuation 2 puff inhalation Q6H PRN 07/02/22 aerosol inhaler (ProAir HFA) shortness of breath or wheezing #6.7 grams albuterol sulfate 90 mcg/actuation 2 inh inhalation Q6H #1 ea 07/02/22 breath activated powder inhaler,sensor (Proair Digihaler) prednisone 20 mg tablet 40 mg PO DAILY 5 days #10 tabs 08/09/22 Allergies Allergy/AdvReac Type Severity Reaction Status Date / Time ondansetron [From Zofran] AdvReac Verified 08/08/22 19:58 Review of Systems Status of ROS Reports: 10 or more systems reviewed and unremarkable except as noted in History and below [facility] Medical History ADHD Anxiety Asthma Breast removal, prophylactic Community acquired pneumonia Depression Tobacco dependence Traumatic brain injury Surgical History [place] teeth removed Social History Highest level of school completed/degree received: high school graduate Smoking Status: Light tobacco smoker Do you use any of these nicotine containing products: E-Cigarettes and Vaping Products Nicotine containing products detail: Frequently Vapes Second hand tobacco smoke exposure: No How often do you have a drink containing alcohol: monthly or less How many standard drinks containing alcohol do you have on a typical day: 1 or 2 How often do you have six or more drinks on one occasion: Never AUDIT-C Alcohol total score: 1 Non-prescribed substance use: marijuana (any form) Non-prescribed substance use details: medical marijuana card Caffeine: No (Rarely) Do you think of yourself as: straight/heterosexual Gender Identity: male service: No Exam Narrative: Exam Narrative: Very pleasant. Of good energy. NAD. Skin is warm and dry. No rash. Oropharynx is moist. cn 2-12 intact. Well perfused peripherally. Breathing mildly labored. Lungs with diffuse crepitus and wheeze. Cardiovascular with a little elevated rate and in regular rhythm. Abdomen with normal active bowel sounds is soft and tender in the right lower quadrant without peritoneal signs. Not exactly adnexal area pain. No mass is appreciated. Const: Vital Signs, click to edit/add: Vital Signs - 24 hr 08/08/22 19:56 08/08/22 22:22 08/08/22 20:37 Temperature 99.0 F 99.0 F Pulse Rate Pulse Rate [Right Pulse Oximeter] 105 H Respiratory Rate 20 Blood Pressure Blood Pressure [Ri ght Upper Arm] 110/67 Pulse Oximetry 96 99 Oxygen Delivery Me thod Room Air 08/08/22 20:38 08/08/22 22:29 08/08/22 23:57 Temperature 99.0 F Pulse Rate 97 86 Pulse Rate [Right Pulse Oximeter] 105 H Respiratory Rate 18 18 18 Blood Pressure 113/70 106/73 Blood Pressure [Ri ght Upper Arm] 110/67 Pulse Oximetry 94 94 Oxygen Delivery Me thod Documenting provider has reviewed patient's vital signs: yes Course Vital Signs Vital signs: Initial Vital Signs Temperature 99.0 F 08/08/22 19:56 Temperature Source Temporal Artery Scan 08/08/22 19:56 Pulse Rate 105 H 08/08/22 19:56 Respiratory Rate 20 08/08/22 19:56 Blood Pressure 110/67 08/08/22 19:56 Blood Pressure Mean 81 08/08/22 19:56 Blood Pressure Position Sitting 08/08/22 19:56 Pulse Oximetry 96 08/08/22 19:56 Oxygen Delivery Method 08/08/22 19:56 Vital Signs Temperature 99.0 F 08/08/22 19:56 Pulse Rate 105 H 08/08/22 19:56 Respiratory Rate 20 08/08/22 19:56 Blood Pressure 110/67 08/08/22 19:56 Pulse Oximetry 96 08/08/22 19:56 Oxygen Delivery Method 08/08/22 19:56 Temperature 99.0 F 08/08/22 23:57 Pulse Rate 105 H 08/08/22 23:57 Respiratory Rate 18 08/08/22 23:57 Blood Pressure 110/67 08/08/22 23:57 Pulse Oximetry 94 08/08/22 22:29 Oxygen Delivery Method 08/08/22 19:56 MDM - Abdominal Pain MDM Narrative Medical decision making narrative: This pain may certainly be related to an evolving diarrheal illness. Still with ovaries as potential source. Appendicitis. Adenitis? I think reasonable to do a CT imaging and lab work. ivf, morphine and ketorolac. Labs with mildly elevated white count. CRP normal. CT imaging I did review co mplicated by artifact from barium ingestion. Can't be certain for evaluation of appendix. Therefore ordered pelvic ultrasound. This was noted per my conversation with technologist to be negative. did search further for appendix but not visualized. duoneb improved breathing. no more wheeze. feels much better in this regard. unclear source of pain. overall improved with treatments but pain worsened some after us. Medical Records Attestation: I reviewed the patient's medical records. Lab Data Attestation: I reviewed the patient's lab results. Labs: Lab Results 08/08/22 08/08/22 08/08/22 Range/Units 20:25 20:28 20:28 WBC (4.50-11.00) K/uL RBC (4.00-5.20) m/uL Hgb (12.0-16.0) gm/dL Hct (33.0-51.0) % MCV (80-100) fL MCH (26-34) pg MCHC (32-36) gm/dL RDW Coeff of Adriano (11.5-15.5) % Plt Count (140-440) K/uL Neut % (Auto) (42.0-72.0) % Lymph % (Auto) (20-44) % [place]rill % (Auto) (0.0-11.0) % Eos % (Auto) (0.0-7.0) % Baso % (Auto) (0.0-3.0) % Neut # (Auto) (1.7-7.0) K/uL Lymph # (Auto) (0.90-2.90) K/uL [place]rill # (Auto) (0.00-0.90) K/UL Eos # (Auto) (0.00-0.50) K/uL Baso # (Auto) (0.00-0.30) K/uL Abs Immat Gran (auto) (0.00-0.30) K/uL Imm/Tot Granulo (auto) % Sodium 142 (135-149) mmol/L Potassium 3.9 (3.6-5.1) mmol/L Chloride 109 (96-114) mmol/L Carbon Dioxide 25 (20-32) mmol/L BUN 13 (5-24) mg/dL Creatinine 1.1 (0.5-1.5) mg/dL Estimated Creat Clear 75.10 Estimated GFR 73 ml/min Glucose 77 (60-115) mg/dL Calcium 9.7 (8.4-10.6) mg/dL Total Bilirubin 1.5 (0.1-1.5) mg/dL Direct Bilirubin 0.1 (0.0-0.5) mg/dL AST 38 H (12-35) U/L ALT 32 (4-35) U/L Alkaline Phosphatase 84 (40-150) U/L C-Reactive Protein 0.6 (0.5-1.0) mg/dL Total Protein 8.2 (6.0-8.3) g/dL Albumin 4.8 (3.3-5.0) g/dL HCG, Qual (Negative) Urine Color Yellow (Yellow) Urine Appearance Clear (Clear) Urine pH 6.5 (5.0-8.5) Ur Specific [place] 1.020 (1.000-1.030) Urine Protein Negative (Negative) Urine Glucose (UA) Negative (Negative) Urine Ketones 1+ A (Negative) Urine Blood Negative (Negative) Urine Nitrite Negative (Negative) Urine Bilirubin 1+ A (Negative) Urine Urobilinogen 0.2 (0.2-1.0) Ur Leukocyte Esterase 1+ A (Negative) Urine RBC 0-2 (0-2) Urine WBC 0-2 (0-5) Ur Squamous Epith Cells Few (None-Few) Urine Bacteria None (None) SARS-CoV-2 (PCR) (Negative) 08/08/22 08/08/22 08/08/22 Range/Units 20:28 20:30 20:35 WBC 13.84 H (4.50-11.00) K/uL RBC 5.95 H (4.00-5.20) m/uL Hgb 17.1 H (12.0-16.0) gm/dL Hct 49.5 (33.0-51.0) % MCV 83 (80-100) fL MCH 29 (26-34) pg MCHC 35 (32-36) gm/dL RDW Coeff of Adriano 12.0 (11.5-15.5) % Plt Count 340 (140-440) K/uL Neut % (Auto) 62.8 (42.0-72.0) % Lymph % (Auto) 23.7 (20-44) % [place]rill % (Auto) 8.5 (0.0-11.0) % Eos % (Auto) 4.2 (0.0-7.0) % Baso % (Auto) 0.5 (0.0-3.0) % Neut # (Auto) 8.70 H (1.7-7.0) K/uL Lymph # (Auto) 3.30 H (0.90-2.90) K/uL [place] # (Auto) 1.20 H (0.00-0.90) K/UL Eos # (Auto) 0.60 H (0.00-0.50) K/uL Baso # (Auto) 0.10 (0.00-0.30) K/uL Abs Immat Gran (auto) 0.00 (0.00-0.30) K/uL Imm/Tot Granulo (auto) 0.3 % Sodium (135-149) mmol/L Potassium (3.6-5.1) mmol/L Chloride (96-114) mmol/L Carbon Dioxide (20-32) mmol/L BUN (5-24) mg/dL Creatinine (0.5-1.5) mg/dL Estimated Creat Clear Estimated GFR ml/min Glucose (60-115) mg/dL Calcium (8.4-10.6) mg/dL Total Bilirubin (0.1-1.5) mg/dL Direct Bilirubin (0.0-0.5) mg/dL AST (12-35) U/L ALT (4-35) U/L Alkaline Phosphatase (40-150) U/L C-Reactive Protein (0.5-1.0) mg/dL Total Protein (6.0-8.3) g/dL Albumin (3.3-5.0) g/dL HCG, Qual Negative (Negative) Urine Color (Yellow) Urine Appearance (Clear) Urine pH (5.0-8.5) Ur Specific [place] (1.000-1.030) Urine Protein (Negative) Urine Glucose (UA) (Negative) Urine Ketones (Negative) Urine Blood (Negative) Urine Nitrite (Negative) Urine Bilirubin (Negative) Urine Urobilinogen (0.2-1.0) Ur Leukocyte Esterase (Negative) Urine RBC (0-2) Urine WBC (0-5) Ur Squamous Epith Cells (None-Few) Urine Bacteria (None) SARS-CoV-2 (PCR) Negative SARS-CoV-2 (Negative) Discharge Plan Discharge Clinical Impression: Diarrhea, Abdominal pain, Asthma exacerbation Patient Disposition: Home, Self-Care Condition: Improved Additional Instructions: Focus on hydration. Cleaner And Presser diet over the next 36 hours. Diluted juices, soup broths, advancing to thicker soups and smoothies. Rice. [place]. Can take ibuprofen or acetaminophen. Remember that Keri has 325 mg of acetaminophen in it. Can take up to 1 g of acetaminophen per dose. Return for marked increase in pain, vomiting that you would associate with this pain, associated fever. Return with stool sample of diarrhea continuing. I suppose you could also turned this into your clinic but they would half to place an order there. Keri and Venessa from [employer] Prescriptions: New prednisone 20 mg tablet 40 mg PO DAILY 5 Days Qty: 10 0RF No Action sertraline 100 mg tablet 100 mg PO DAILY Label Comments: TOTAL DOSE = 125 MG DAILY trazodone 150 mg tablet 150 mg PO HS Label Comments: TAKE 1 TABLET BY MOUTH EVERYDAY AT BEDTIME sertraline 25 mg tablet 25 mg PO DAILY Label Comments: TOTAL DOSE = 125 MG DAILY montelukast 10 mg tablet 10 mg PO DAILY testosterone enanthate 200 mg/mL oil 50 mg subcut Q7D Rx Instructions: FRIDAYS aripiprazole 5 mg tablet 5 mg PO DAILY Label Comments: TAKE 1 TABLET BY MOUTH EVERY DAY methylphenidate HCl [Ritalin LA] 30 mg capsule,ER biphasic 50-50 30 mg PO DAILY Label Comments: TAKE 1 CAPSULE BY MOUTH EVERY DAY albuterol sulfate 90 mcg/actuation HFA aerosol inhaler 2 puff inhalation 6XD PRN (Reason: shortness of breath or wheezing) Qty: 8.5 1RF ipratropium-albuterol 0.5 mg-3 mg(2.5 mg base)/3 mL solution for nebulization 3 ml inhalation Q6H PRNQty: 90 1RF prochlorperazine maleate [Compazine] 10 mg tablet 10 mg PO Q6H PRNQty: 20 0RF Proair Digihaler 90 mcg/actuation aero powdr breath act w/sensor 2 inh inhalation Q6H Qty: 1 2RF albuterol sulfate [ProAir HFA] 90 mcg/actuation HFA aerosol inhaler 2 puff inhalation Q6H PRN (Reason: shortness of breath or wheezing) Qty: 6.7 0RF gabapentin 100 mg capsule 100 mg PO TID PRN fluticasone furoate-vilanterol [Breo Ellipta] 200-25 mcg/dose blister with device 1 inh INHALATION DAILY Label Comments: INHALE 1 PUFF BY MOUTH EVERY DAY fluticasone propionate 50 mcg/actuation spray,suspension 1 spray INTRANASAL DAILY PRN vancomycin 125 mg capsule 125 mg PO QID Follow Up/Referrals: Shanthi Delgadillo MD [Primary Care Provider] - Stand Alone Forms: [facility] Info Instructions
[2022-08-09 17:57] LABS: C.Difficile Negative (Negative); CDIFFEPI 027 PRESUMPTIVE NEGATIVE (Negative)
== END 2022-08-08 23:58 | disposition home or self-care (01) ==
PROVIDERS: Emergency Provider Family Medicine; PCP Family Medicine
DX: R10.9 Unspecified abdominal pain (principal); R19.7 Diarrhea, unspecified; J45.909 Unspecified asthma, uncomplicated
CPT/HCPCS: 36415; 74177; 76830; 76856; 80048; 80076; 81001; 84703; 85025; 86140; 87493; 87635; 93976; 94640; 94761; 96374; 96375; 99284; 99285; J1885; J2270; J7030; Q9967

== ENCOUNTER 2022-08-09 15:57 | Emergency (ER) | payer BC, MEDICAID, SELFPAY ==
[2022-08-09 16:06] VITALS: BP 107/73; PULSE 76; RESP 18; TEMP 36.6; O2SAT 96; BMI 29.1
--- NOTE | 2022-08-09 16:50 | ED_ITS ---
HPI - General Adult General Date Seen: 08/09/22 Chief complaint: Abdominal Pain Stated complaint: Cdiff, lower abdominal pain Time Seen by Provider: 08/09/22 16:28 Source: patient, RN notes reviewed and old records reviewed History of Present Illness HPI narrative: Patient is a 22-year-old transgender male who presents for re-evaluation of abdominal pain. He tells me that he began to have right lower abdominal pain starting on Saturday. He was seen here yesterday and Saturday with evaluation including CT and ultrasound. He does still have a uterus and ovaries. Ultrasound was negative. CT scan was of limited benefit because he had had a barium study earlier in the day. He had seen Dr. Cortez prior because of ongoing nausea, vomiting, and soft stools after a C diff infection in May of this year. He was treated with vancomycin for that infection but had had ongoing GI complaints since. He says however that since Saturday he has been having maggie diarrhea which is new. He has had bloody stools today as well. Abdominal pain has been crampy, moderate in intensity. Occasionally radiates to the left lower quadrant. He has not had an appetite. Has had vomiting on and off since Saturday. Denies fever. No urinary symptoms. No previous abdominal surgeries. Related Data Home Medications Medication Instructions Recorded Confirmed aripiprazole 5 mg tablet 5 mg PO DAILY 04/02/22 06/15/22 methylphenidate HCl 30 mg biphasic 30 mg PO DAILY 04/02/22 06/15/22 50-50 capsule,extended release (Ritalin LA) montelukast 10 mg tablet 10 mg PO DAILY 04/02/22 06/15/22 sertraline 100 mg tablet 100 mg PO DAILY 04/02/22 06/15/22 sertraline 25 mg tablet 25 mg PO DAILY 04/02/22 06/15/22 testosterone enanthate 200 mg/mL 50 mg subcut Q7D 04/02/22 06/15/22 intramuscular oil trazodone 150 mg tablet 150 mg PO HS 04/02/22 06/15/22 gabapentin 100 mg capsule 100 mg PO TID PRN 06/11/22 06/15/22 fluticasone furoate 200 1 inh inhalation DAILY 06/15/22 06/15/22 mcg-vilanterol 25 mcg/dose inhalation powder (Breo Ellipta) fluticasone propionate 50 1 spray intranasal DAILY PRN 06/15/22 06/15/22 mcg/actuation nasal spray,suspension vancomycin 125 mg capsule 125 mg PO QID 06/15/22 06/15/22 Previous Rx's Medication Instructions Recorded albuterol sulfate 90 mcg/actuation 2 puff inhalation 6XD PRN 06/09/22 aerosol inhaler shortness of breath or wheezing #8.5 grams ipratropium 0.5 mg-albuterol 3 mg 3 ml inhalation Q6H PRN #90 mL 06/09/22 (2.5 mg base)/3 mL nebulization soln prochlorperazine maleate 10 mg 10 mg PO Q6H PRN #20 tabs 06/29/22 tablet (Compazine) albuterol sulfate 90 mcg/actuation 2 puff inhalation Q6H PRN 07/02/22 aerosol inhaler (ProAir HFA) shortness of breath or wheezing #6.7 grams albuterol sulfate 90 mcg/actuation 2 inh inhalation Q6H #1 ea 07/02/22 breath activated powder inhaler,sensor (Proair Digihaler) prednisone 20 mg tablet 40 mg PO DAILY 5 days #10 tabs 08/09/22 Allergies Allergy/AdvReac Type Severity Reaction Status Date / Time ondansetron [From Zofran] AdvReac Verified 08/08/22 19:58 Review of Systems Status of ROS: Reports: 10 or more systems reviewed and unremarkable except as noted in History and below PFSH PFS Medical History ADHD Anxiety Asthma Breast removal, prophylactic Community acquired pneumonia Depression Tobacco dependence Traumatic brain injury Surgical History [place] teeth removed Social History Highest level of school completed/degree received: high school graduate Smoking Status: Light tobacco smoker Do you use any of these nicotine containing products: E-Cigarettes and Vaping Products Nicotine containing products detail: Frequently Vapes Second hand tobacco smoke exposure: No How often do you have a drink containing alcohol: monthly or less How many standard drinks containing alcohol do you have on a typical day: 1 or 2 How often do you have six or more drinks on one occasion: Never AUDIT-C Alcohol total score: 1 Non-prescribed substance use: marijuana (any form) Non-prescribed substance use details: medical marijuana card Caffeine: No (Rarely) Do you think of yourself as: straight/heterosexual Gender Identity: male service: No Exam Narrative: Exam Narrative: Vital signs as noted above. In general, an alert, well-appearing patient. Head: Normocephalic, atraumatic. Eyes: Pupils are equal reactive. Extraocular movements are full. Conjunctivae are normal. ENT: Mucous membranes are moist. Throat is normal. Neck: Supple without lymphadenopathy. Heart: Regular rate and rhythm. No murmur or rub. Lungs: Clear bilaterally. No increased work of breathing, crackles or wheezes. Abdomen: Soft and nondistended. Minimal lower abdominal tenderness which is not significantly localized to the right lower quadrant. Guarding or rigidity. Extremities: Well perfused. No edema. No calf tenderness. Pulses intact. Neurologic: Patient is alert and oriented to person and place. Speech is fluent. Face is symmetric. Moves all extremities equally. Affect: Normal. Skin: Warm and dry. Well perfused. Const: Vital Signs, click to edit/add: Vital Signs - 24 hr 08/09/22 16:06 08/09/22 19:00 Temperature 97.8 F Pulse Rate [Right Pulse Oximeter] 76 69 Respiratory Rate 18 16 Blood Pressure [Ri ght Upper Arm] 107/73 107/73 Pulse Oximetry 96 95 Oxygen Delivery Me thod Room Air Documenting provider has reviewed patient's vital signs: yes Course Course Hospital Course: At this time, abdominal exam is relatively benign given that symptoms have been present for [address] scan was very limited yesterday, appendix was not visualized. Soft tissue exam was limited as well although no inflammatory changes were noted. Ultrasound was entirely normal. White blood cell count was mildly elevated yesterday at 13. CRP was normal. Urinalysis was unremarkable, LFTs were essentially normal. I have recommended to him that given the relatively un concerning abdominal exam that we start by rechecking some labs, he was able to give a stool sample today so I would like to see if C diff is positive. The bloody stools would be unusual for appendicitis, as would the lack of significant peritoneal findings after 3 days of abdominal pain due to appendicitis. I think give labs are stable and C diff is positive, that colitis is much more likely diagnosis for his symptoms. In the meantime, will give some fluids, Toradol, Reglan given his listed allergy for Zofran. Lab work is reassuring. White blood cell count is normal today. CRP is very minimally elevated at 2.1. Other labs are unremarkable. I did order of flat plate of the abdomen, there is still a significant amount of barium in the colon, particularly in the cecum. Therefore, repeat CT scanning will not be of benefit. A C diff today was negative. Nonetheless, my suspicion for appendicitis remains fairly low given the absence of significant tenderness in the abdomen and persistent unremarkable labs. I did talk with Dr. Morley, who feels that his symptoms are likely related to retained barium. I think it is reasonable to let him go home. Symptoms will likely improve over the next couple of days as the barium is expelled. Clinic follow-up for recheck next week if persistent problems. Certainly discussed with Dr. Cortez ongoing concerns as well. Severe uncontrolled pain, fever, uncontrolled vomiting, return to the emergency department. He does have access to an anti manic at home. Would recommend continued clear liquids/bland diet, advance as able. Vital Signs Vital signs: Initial Vital Signs Temperature 97.8 F 08/09/22 16:06 Temperature Source Temporal Artery Scan 08/09/22 16:06 Pulse Rate 76 08/09/22 16:06 Respiratory Rate 18 08/09/22 16:06 Blood Pressure 107/73 08/09/22 16:06 Blood Pressure Mean 84 08/09/22 16:06 Blood Pressure Position Sitting 08/09/22 16:06 Pulse Oximetry 96 08/09/22 16:06 Oxygen Delivery Method 08/09/22 16:06 Vital Signs Temperature 97.8 F 08/09/22 16:06 Pulse Rate 76 08/09/22 16:06 Respiratory Rate 18 08/09/22 16:06 Blood Pressure 107/73 08/09/22 16:06 Pulse Oximetry 96 08/09/22 16:06 Oxygen Delivery Method 08/09/22 16:06 Temperature 97.8 F 08/09/22 16:06 Pulse Rate 69 08/09/22 19:00 Respiratory Rate 16 08/09/22 19:00 Blood Pressure 107/73 08/09/22 19:00 Pulse Oximetry 95 08/09/22 19:00 Oxygen Delivery Method 08/09/22 16:06 Medical Decision Making Lab Data Labs: Lab Results 08/09/22 08/09/22 08/09/22 Range/Units 17:10 17:10 17:10 WBC 6.94 (4.50-11.00) K/uL RBC 5.44 H (4.00-5.20) m/uL Hgb 15.6 (12.0-16.0) gm/dL Hct 45.6 (33.0-51.0) % MCV 84 (80-100) fL MCH 29 (26-34) pg MCHC 34 (32-36) gm/dL RDW Coeff of Adriano 12.0 (11.5-15.5) % Plt Count 281 (140-440) K/uL Neut % (Auto) 45.1 (42.0-72.0) % Lymph % (Auto) 31.6 (20-44) % [place] % (Auto) 9.7 (0.0-11.0) % Eos % (Auto) 12.0 H (0.0-7.0) % Baso % (Auto) 0.9 (0.0-3.0) % Neut # (Auto) 3.14 (1.7-7.0) K/uL Lymph # (Auto) 2.19 (0.90-2.90) K/uL [place] # (Auto) 0.70 (0.00-0.90) K/UL Eos # (Auto) 0.80 H (0.00-0.50) K/uL Baso # (Auto) 0.06 (0.00-0.30) K/uL Sodium 140 (135-149) mmol/L Potassium 3.9 (3.6-5.1) mmol/L Chloride 109 (96-114) mmol/L Carbon Dioxide 23 (20-32) mmol/L BUN 11 (5-24) mg/dL Creatinine 0.8 (0.5-1.5) mg/dL Estimated Creat Clear 103.26 Estimated GFR 107 ml/min Glucose 73 (60-115) mg/dL Calcium 8.9 (8.4-10.6) mg/dL Total Bilirubin 1.6 H (0.1-1.5) mg/dL Direct Bilirubin 0.0 (0.0-0.5) mg/dL AST 33 (12-35) U/L ALT 27 (4-35) U/L Alkaline Phosphatase 73 (40-150) U/L C-Reactive Protein 2.1 H (0.5-1.0) mg/dL Total Protein 7.3 (6.0-8.3) g/dL Albumin 4.4 (3.3-5.0) g/dL Lipase 86 (23-300) U/L Discharge Plan Discharge Clinical Impression: Diarrhea, Abdominal pain Patient Disposition: Home, Self-Care Condition: Improved Instructions: Acute Diarrhea (ED), Abdominal Pain (ED) Additional Instructions: Clear liquids to bland diet, advance as able. Follow-up with Dr. Cortez. Return to the ER for severe pain, uncontrolled vomiting, fever or other new changes. Use your nausea medicine as needed. Labs today are reassuring. Prescriptions: No Action sertraline 100 mg tablet 100 mg PO DAILY Label Comments: TOTAL DOSE = 125 MG DAILY trazodone 150 mg tablet 150 mg PO HS Label Comments: TAKE 1 TABLET BY MOUTH EVERYDAY AT BEDTIME sertraline 25 mg tablet 25 mg PO DAILY Label Comments: TOTAL DOSE = 125 MG DAILY montelukast 10 mg tablet 10 mg PO DAILY testosterone enanthate 200 mg/mL oil 50 mg subcut Q7D Rx Instructions: FRIDAYS aripiprazole 5 mg tablet 5 mg PO DAILY Label Comments: TAKE 1 TABLET BY MOUTH EVERY DAY methylphenidate HCl [Ritalin LA] 30 mg capsule,ER biphasic 50-50 30 mg PO DAILY Label Comments: TAKE 1 CAPSULE BY MOUTH EVERY DAY albuterol sulfate 90 mcg/actuation HFA aerosol inhaler 2 puff inhalation 6XD PRN (Reason: shortness of breath or wheezing) Qty: 8.5 1RF ipratropium-albuterol 0.5 mg-3 mg(2.5 mg base)/3 mL solution for nebulization 3 ml inhalation Q6H PRNQty: 90 1RF prochlorperazine maleate [Compazine] 10 mg tablet 10 mg PO Q6H PRNQty: 20 0RF Proair Digihaler 90 mcg/actuation aero powdr breath act w/sensor 2 inh inhalation Q6H Qty: 1 2RF albuterol sulfate [ProAir HFA] 90 mcg/actuation HFA aerosol inhaler 2 puff inhalation Q6H PRN (Reason: shortness of breath or wheezing) Qty: 6.7 0RF prednisone 20 mg tablet 40 mg PO DAILY 5 Days Qty: 10 0RF gabapentin 100 mg capsule 100 mg PO TID PRN fluticasone furoate-vilanterol [Breo Ellipta] 200-25 mcg/dose blister with device 1 inh INHALATION DAILY Label Comments: INHALE 1 PUFF BY MOUTH EVERY DAY fluticasone propionate 50 mcg/actuation spray,suspension 1 spray INTRANASAL DAILY PRN vancomycin 125 mg capsule 125 mg PO QID Follow Up/Referrals: Shanthi Delgadillo MD [Primary Care Provider] - Stand Alone Forms: [employer] Info Instructions
[2022-08-09] MEDS: KETOROLAC 15 MG/ML inj IVP (17:21)
[2022-08-09] MEDS: METOCLOPRAMIDE HCL 10 MG in 0.9 % SODIUM CHLORIDE 100 ml 100 ML 306 MG IVPB (17:21)
[2022-08-09] MEDS: 0.9 % SODIUM CHLORIDE 1000 ml 1,000 ML IV (17:21)
[2022-08-09 17:22] LABS: Basophils Absolute Auto 0.06 K/uL (0.00-0.30); Basophils Percent Auto 0.9 % (0.0-3.0); Hematocrit 45.6 % (33.0-51.0); Hemoglobin* 15.6 gm/dL (12.0-16.0); Immature Granulocytes Abs Auto 0.05 K/uL (0.00-0.30); Immature Granulocytes Pct Auto 0.7 %; Lymphocytes Absolute Auto 2.19 K/uL (0.90-2.90); Lymphocytes Percent Auto 31.6 % (20-44); Mean Corpuscular HGB Conc 34 gm/dL (32-36); Mean Corpuscular Hemoglobin 29 pg (26-34); Mean Corpuscular Volume 84 fL (80-100); Monocytes Percent Auto 9.7 % (0.0-11.0); Neutrophils Absolute Auto 3.14 K/uL (1.7-7.0); Neutrophils Percent Auto 45.1 % (42.0-72.0); Platelet Count* 281 K/uL (140-440); Red Blood Count 5.44 m/uL (4.00-5.20); White Blood Count* 6.94 K/uL (4.50-11.00)
[2022-08-09 17:23] LABS: Slide Review Reflex No
[2022-08-09 17:34] LABS: Albumin* 4.4 g/dL (3.3-5.0)
[2022-08-09 17:35] LABS: Chloride* 109 mmol/L (96-114); Potassium* 3.9 mmol/L (3.6-5.1); Sodium* 140 mmol/L (135-149)
[2022-08-09 17:37] LABS: Alkaline Phosphatase* 73 U/L (40-150); Aspartate Amino Transferase* 33 U/L (12-35); Bilirubin Total* 1.6 mg/dL (0.1-1.5); Total Protein* 7.3 g/dL (6.0-8.3)
[2022-08-09 17:38] LABS: Alanine Aminotransferase* 27 U/L (4-35); Creatinine* 0.8 mg/dL (0.5-1.5); Est. Creatinine Clearance* 103.26; Estimated Glomerular Filt Rate 107 ml/min; Lipase* 86 U/L (23-300)
[2022-08-09 17:39] LABS: Blood Urea Nitrogen* 11 mg/dL (5-24); Calcium* 8.9 mg/dL (8.4-10.6); Carbon Dioxide* 23 mmol/L (20-32); Glucose* 73 mg/dL (60-115)
[2022-08-09 17:42] LABS: C Reactive Protein* 2.1 mg/dL (0.5-1.0)
[2022-08-09 19:00] VITALS: BP 107/73; PULSE 69; RESP 16; O2SAT 95
[2022-08-09] MEDS: MORPHINE 4 MG/ML INJ IVP (19:18)
--- NOTE | 2022-08-09 19:20 | CRLHL7_ITS ---
For Patients: As a result of the Century Cures Act, medical imaging exams and procedure reports are released immediately into your electronic medical record. You may view this report before your referring provider. If you have questions, please contact your health care provider. INDICATION: Evaluate for residual barium. TECHNIQUE: Abdomen/pelvis 1 view(s) COMPARISON: CT abdomen/pelvis dated 08/08/2022. FINDINGS/IMPRESSION: Extensive residual barium is present throughout the colon, with a large concentration in the cecum. Nonspecific nonobstructive bowel gas pattern. No evidence of pneumoperitoneum within the limitations of supine positioning. Visualized lung bases are grossly clear. No acute osseous abnormality. Dictated by Umm Perez MD @ 08/09/2022 7:56:51 PM (Electronically Signed)
== END 2022-08-09 20:31 | disposition home or self-care (01) ==
PROVIDERS: Emergency Provider Emergency Medicine; PCP Family Medicine
DX: R10.9 Unspecified abdominal pain (principal); R19.7 Diarrhea, unspecified
CPT/HCPCS: 36415; 74018; 80048; 80076; 81001; 83690; 85025; 86140; 87493; 96365; 96375; 99284; J1885; J2270; J2765; J7030

== ENCOUNTER 2022-08-22 14:44 | Emergency (ER) | payer BC, MEDICAID, SELFPAY ==
[2022-08-22 14:57] VITALS: BP 110/84; PULSE 102; RESP 18; TEMP 37.2; O2SAT 96
--- NOTE | 2022-08-22 15:34 | ED.GENADULT ---
HPI - General Adult General Time Seen by Provider: 15:34 Date Seen: 08/22/22 Chief complaint: Abdominal Pain Stated complaint: C diff, abdominal pain, leg pain Time Seen by Provider: 08/22/22 15:26 Source: patient and RN notes reviewed Mode of arrival: ambulatory Limitations: no limitations History of Present Illness HPI narrative: Jace is a 22 year old transgender female to male patient coming in with increasing complaint of abdominal pain. Current symptoms started yesterday with increasing abdominal pain. Vomiting started today. Diarrhea started yesterday. Jace tried to eat this morning, did have emesis after that. Has not noted a fever but states that the temperature here of 99 is actually a high fever for him. He states that his temperature is usually 96-97. Current symptoms are reminiscent of the C difficile colitis that he had in the beginning of June of this year. He has had some chronic abdominal issues since then. Did have an esophogram or some type of swallow study which was reportedly normal. No recent stool collection for C difficile. Was in with abdominal pain on August 09 but Jace states that symptoms had improved in between then and now. 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 Is feeling weak and dehydrated. Did tell nursing staff that he passed out at home, did not related this to me when I was in talking to him. Did see it afterwards in the nursing note. Related Data Home Medications Medication Instructions Recorded Confirmed aripiprazole 5 mg tablet 5 mg PO DAILY 04/02/22 08/22/22 methylphenidate HCl 30 mg biphasic 30 mg PO DAILY 04/02/22 08/22/22 50-50 capsule,extended release (Ritalin LA) montelukast 10 mg tablet 10 mg PO DAILY 04/02/22 08/22/22 sertraline 100 mg tablet 100 mg PO DAILY 04/02/22 08/22/22 sertraline 25 mg tablet 25 mg PO DAILY 04/02/22 08/22/22 testosterone enanthate 200 mg/mL 50 mg subcut Q7D 04/02/22 08/22/22 intramuscular oil trazodone 150 mg tablet 150 mg PO HS 04/02/22 08/22/22 gabapentin 100 mg capsule 100 mg PO TID PRN 06/11/22 08/22/22 fluticasone furoate 200 1 inh inhalation DAILY 06/15/22 08/22/22 mcg-vilanterol 25 mcg/dose inhalation powder (Breo Ellipta) fluticasone propionate 50 1 spray intranasal DAILY PRN 06/15/22 06/15/22 mcg/actuation nasal spray,suspension famotidine 40 mg tablet mg 08/22/22 Previous Rx's Medication Instructions Recorded albuterol sulfate 90 mcg/actuation 2 puff inhalation 6XD PRN 06/09/22 aerosol inhaler shortness of breath or wheezing #8.5 grams ipratropium 0.5 mg-albuterol 3 mg 3 ml inhalation Q6H PRN #90 mL 06/09/22 (2.5 mg base)/3 mL nebulization soln prochlorperazine maleate 10 mg 10 mg PO Q6H PRN #20 tabs 06/29/22 tablet (Compazine) albuterol sulfate 90 mcg/actuation 2 puff inhalation Q6H PRN 07/02/22 aerosol inhaler (ProAir HFA) shortness of breath or wheezing #6.7 grams albuterol sulfate 90 mcg/actuation 2 inh inhalation Q6H #1 ea 07/02/22 breath activated powder inhaler,sensor (Proair Digihaler) Allergies Allergy/AdvReac Type Severity Reaction Status Date / Time ondansetron [From Zofran] AdvReac Verified 08/22/22 15:04 Review of Systems Status of ROS: Reports: 10 or more systems reviewed and unremarkable except as noted in History and below PFSH [facility] Medical History ADHD Anxiety Asthma Breast removal, prophylactic Community acquired pneumonia Depression Tobacco dependence Traumatic brain injury Surgical History [place] teeth removed Social History Highest level of school completed/degree received: high school graduate Smoking Status: Light tobacco smoker Do you use any of these nicotine containing products: E-Cigarettes and Vaping Products Nicotine containing products detail: Frequently Vapes Second hand tobacco smoke exposure: No How often do you have a drink containing alcohol: monthly or less How many standard drinks containing alcohol do you have on a typical day: 1 or 2 How often do you have six or more drinks on one occasion: Never AUDIT-C Alcohol total score: 1 Non-prescribed substance use: marijuana (any form) Non-prescribed substance use details: medical marijuana card Caffeine: No (Rarely) Do you think of yourself as: straight/heterosexual Gender Identity: male service: No Exam Const: Vital Signs, click to edit/add: Vital Signs - 24 hr 08/22/22 14:57 Temperature 99.0 F Pulse Rate [Left P ulse Oximeter] 102 H Respiratory Rate 18 Blood Pressure [Le ft Upper Arm] 110/84 Pulse Oximetry 96 Oxygen Delivery Me thod Room Air Documenting provider has reviewed patient's vital signs: yes Common normals: no apparent distress, average body habitus, oriented x3, no limitations, healthy appearing, alert and well nourished General appearance: cooperative, comfortable, well kempt and well developed Other: Hanging onto an emesis bag with a very small amount fluid-filled vomit in the bag. HENMT: Common normals: normocephalic, head/scalp atraumatic, hearing grossly normal bilaterally and external nose normal Head and scalp: normocephalic and atraumatic Nose: external nose normal Eye: Common normals: PERRL, EOMs intact bilaterally, conjunctivae normal and no scleral icterus Conjunctiva: conjunctiva(e) normal Pupil: PERRL Neck & C-Spine: Common normals: full ROM, no lymphadenopathy, supple, no meningeal signs, no JVD and thyroid normal Thyroid: thyroid normal Resp: Common normals: normal respiratory effort, no retractions, no use of accessory muscles and clear to auscultation bilaterally Auscultation: clear to auscultation bilaterally Cardio: Common normals: no JVD, regular rhythm, S1 normal heart sound, S2 normal heart sound, no gallops, no clicks and no murmurs Rate: tachycardic Rhythm: regular rhythm Heart sounds: S1 normal and S2 normal GI: Common normals: Normal to inspection, nondistended, normoactive bowel sounds present, soft to palpation, non-tender, no hepatosplenomegaly and no masses Palpation: soft and no hepatosplenomegaly Neuro: Common normals: oriented x3 Sensorium/orientation: alert Meningeal signs: no meningeal signs Psych: Appearance: well kempt Course Course Hospital Course: Jace feels he has to defecate, will order stool for C difficile. Will place an IV, give a L of IV fluids in give 5 mg IV Compazine. Jace is tolerated Compazine in the past as he has a Zofran allergy. Will recheck full complement of labs. As reviewed with Jace, do not feel that we need any advanced imaging at this time. Depending on symptoms and lab results, may consider imaging of the abdomen from something as simple as a flat and upright of his abdomen with x-ray versus CT imaging. Again at this time I would avoid imaging as I a believe the radiation at this time outweighs the benefit in our diagnostic ability. May need to reconsider that pending lab outcomes. Reevaluation(s) Reevaluation #1: Reviewed with Jace that the C difficile remains negative. He is quite happy to hear that. He is feeling better after the fluids in the Compazine. He believes he still has some Compazine left at home but would take a prescription to refill at a later date. I will give a prescription for 20 10 mg tablets to be taken 1/2-1 every 8 hours as needed. No refills. Did offer COVID and influenza testing on discharge, he declines. We are going to do a period of observation for 24-48 hours. Hopefully this is a self-limited gastrointestinal illness. Jace will seek re-evaluation if not improving or worsening. He is requesting discharge at this time. Time: 17:43 Vital Signs Vital signs: Initial Vital Signs Temperature 99.0 F 08/22/22 14:57 Temperature Source Temporal Artery Scan 08/22/22 14:57 Pulse Rate 102 H 08/22/22 14:57 Pulse Rhythm 08/22/22 14:57 Pulse Strength 3+ Normal 08/22/22 14:57 Respiratory Rate 18 08/22/22 14:57 Blood Pressure 110/84 08/22/22 14:57 Blood Pressure Mean 92 08/22/22 14:57 Blood Pressure Position Sitting 08/22/22 14:57 Pulse Oximetry 96 08/22/22 14:57 Oxygen Delivery Method 08/22/22 14:57 Vital Signs Temperature 99.0 F 08/22/22 14:57 Pulse Rate 102 H 08/22/22 14:57 Respiratory Rate 18 08/22/22 14:57 Blood Pressure 110/84 08/22/22 14:57 Pulse Oximetry 96 08/22/22 14:57 Oxygen Delivery Method 08/22/22 14:57 Temperature 99.0 F 08/22/22 14:57 Pulse Rate 102 H 08/22/22 14:57 Respiratory Rate 18 08/22/22 14:57 Blood Pressure 110/84 08/22/22 14:57 Pulse Oximetry 96 08/22/22 14:57 Oxygen Delivery Method 08/22/22 14:57 Medical Decision Making Lab Data Lab results reviewed: Yes I reviewed the patient's lab results Labs: Lab Results 08/22/22 08/22/22 08/22/22 Range/Units 15:55 15:55 15:55 WBC 13.47 H (4.50-11.00) K/uL RBC 6.33 H (4.00-5.20) m/uL Hgb 18.1 H (12.0-16.0) gm/dL Hct 52.9 H (33.0-51.0) % MCV 84 (80-100) fL MCH 29 (26-34) pg MCHC 34 (32-36) gm/dL RDW Coeff of Adriano 12.0 (11.5-15.5) % Plt Count 285 (140-440) K/uL Neut % (Auto) 77.8 H (42.0-72.0) % Lymph % (Auto) 7.2 L (20-44) % [place] % (Auto) 8.8 (0.0-11.0) % Eos % (Auto) 5.0 (0.0-7.0) % Baso % (Auto) 0.2 (0.0-3.0) % Neut # (Auto) 10.50 H (1.7-7.0) K/uL Lymph # (Auto) 1.00 (0.90-2.90) K/uL [place] # (Auto) 1.20 H (0.00-0.90) K/UL Eos # (Auto) 0.70 H (0.00-0.50) K/uL Baso # (Auto) 0.00 (0.00-0.30) K/uL Sodium 138 (135-149) mmol/L Potassium 4.1 (3.6-5.1) mmol/L Chloride 106 (96-114) mmol/L Carbon Dioxide 23 (20-32) mmol/L BUN 18 (5-24) mg/dL Creatinine 1.0 (0.5-1.5) mg/dL Estimated Creat Clear 79.40 Estimated GFR 82 ml/min Glucose 106 (60-115) mg/dL Lactate 1.1 (0.5-1.9) mmol/L Calcium 8.9 (8.4-10.6) mg/dL Total Bilirubin 2.1 H (0.1-1.5) mg/dL AST 32 (12-35) U/L ALT 30 (4-35) U/L Alkaline Phosphatase 86 (40-150) U/L C-Reactive Protein 2.0 H (0.5-1.0) mg/dL Total Protein 8.1 (6.0-8.3) g/dL Albumin 4.8 (3.3-5.0) g/dL Stl C.difficile Tox PCR (Negative) St C. diff Tox Epid 027 (Negative) 08/22/22 Range/Units 15:55 WBC (4.50-11.00) K/uL RBC (4.00-5.20) m/uL Hgb (12.0-16.0) gm/dL Hct (33.0-51.0) % MCV (80-100) fL MCH (26-34) pg MCHC (32-36) gm/dL RDW Coeff of Adriano (11.5-15.5) % Plt Count (140-440) K/uL Neut % (Auto) (42.0-72.0) % Lymph % (Auto) (20-44) % [place] % (Auto) (0.0-11.0) % Eos % (Auto) (0.0-7.0) % Baso % (Auto) (0.0-3.0) % Neut # (Auto) (1.7-7.0) K/uL Lymph # (Auto) (0.90-2.90) K/uL [place] # (Auto) (0.00-0.90) K/UL Eos # (Auto) (0.00-0.50) K/uL Baso # (Auto) (0.00-0.30) K/uL Sodium (135-149) mmol/L Potassium (3.6-5.1) mmol/L Chloride (96-114) mmol/L Carbon Dioxide (20-32) mmol/L BUN (5-24) mg/dL Creatinine (0.5-1.5) mg/dL Estimated Creat Clear Estimated GFR ml/min Glucose (60-115) mg/dL Lactate (0.5-1.9) mmol/L Calcium (8.4-10.6) mg/dL Total Bilirubin (0.1-1.5) mg/dL AST (12-35) U/L ALT (4-35) U/L Alkaline Phosphatase (40-150) U/L C-Reactive Protein (0.5-1.0) mg/dL Total Protein (6.0-8.3) g/dL Albumin (3.3-5.0) g/dL Stl C.difficile Tox PCR Negative (Negative) St C. diff Tox Epid 027 PRESUMPTIVE NEGATIVE (Negative) Critical Care Time Critical Care Time Critical Care Time: No Discharge Plan Discharge Clinical Impression: Nausea, vomiting and diarrhea, History of Clostridium difficile colitis Patient Disposition: Home, Self-Care Condition: Stable Instructions: Gastroenteritis (ED), Nutrition Tips for Relief of Diarrhea (ED) Additional Instructions: Can use Compazine as needed to desean nausea and vomiting so that you can drink fluids. Would stay with clear liquids for the next 12-24 hours. As you improve, can advance your diet. Can follow the handout on recommendations for foods with acute diarrhea. If you are not improving in the next couple days, are worsening at any point with increasing abdominal pain, fevers, feel you are getting dehydrated, please return to the ER for further evaluation. Activity Level: Activity as Tolerated Prescriptions: No Action sertraline 100 mg tablet 100 mg PO DAILY Label Comments: TOTAL DOSE = 125 MG DAILY trazodone 150 mg tablet 150 mg PO HS Label Comments: TAKE 1 TABLET BY MOUTH EVERYDAY AT BEDTIME sertraline 25 mg tablet 25 mg PO DAILY Label Comments: TOTAL DOSE = 125 MG DAILY montelukast 10 mg tablet 10 mg PO DAILY testosterone enanthate 200 mg/mL oil 50 mg subcut Q7D Rx Instructions: FRIDAYS aripiprazole 5 mg tablet 5 mg PO DAILY Label Comments: TAKE 1 TABLET BY MOUTH EVERY DAY methylphenidate HCl [Ritalin LA] 30 mg capsule,ER biphasic 50-50 30 mg PO DAILY Label Comments: TAKE 1 CAPSULE BY MOUTH EVERY DAY albuterol sulfate 90 mcg/actuation HFA aerosol inhaler 2 puff inhalation 6XD PRN (Reason: shortness of breath or wheezing) Qty: 8.5 1RF ipratropium-albuterol 0.5 mg-3 mg(2.5 mg base)/3 mL solution for nebulization 3 ml inhalation Q6H PRNQty: 90 1RF prochlorperazine maleate [Compazine] 10 mg tablet 10 mg PO Q6H PRNQty: 20 0RF Proair Digihaler 90 mcg/actuation aero powdr breath act w/sensor 2 inh inhalation Q6H Qty: 1 2RF albuterol sulfate [ProAir HFA] 90 mcg/actuation HFA aerosol inhaler 2 puff inhalation Q6H PRN (Reason: shortness of breath or wheezing) Qty: 6.7 0RF famotidine 40 mg tablet Label Comments: TAKE 1 TABLET BY MOUTH EVERY DAY gabapentin 100 mg capsule 100 mg PO TID PRN fluticasone furoate-vilanterol [Breo Ellipta] 200-25 mcg/dose blister with device 1 inh INHALATION DAILY Label Comments: INHALE 1 PUFF BY MOUTH EVERY DAY fluticasone propionate 50 mcg/actuation spray,suspension 1 spray INTRANASAL DAILY PRN Follow Up/Referrals: Shanthi Delgadillo MD [Primary Care Provider] - Stand Alone Forms: [facility] Info Instructions
[2022-08-22 15:40] VITALS: O2SAT 100
[2022-08-22] MEDS: 0.9 % SODIUM CHLORIDE 1000 ml 1,000 ML 500 ML IV (15:58)
[2022-08-22] MEDS: PROCHLORPERAZINE 5 MG/ML VIAL IVP (15:58)
[2022-08-22 16:02] LABS: Lactate* 1.1 mmol/L (0.5-1.9)
[2022-08-22 16:21] LABS: Albumin* 4.8 g/dL (3.3-5.0); Chloride* 106 mmol/L (96-114)
[2022-08-22 16:22] LABS: Potassium* 4.1 mmol/L (3.6-5.1); Sodium* 138 mmol/L (135-149)
[2022-08-22 16:24] LABS: Estimated Glomerular Filt Rate 82 ml/min
[2022-08-22 16:25] LABS: Alanine Aminotransferase* 30 U/L (4-35); Alkaline Phosphatase* 86 U/L (40-150); Aspartate Amino Transferase* 32 U/L (12-35); Bilirubin Total* 2.1 mg/dL (0.1-1.5); Blood Urea Nitrogen* 18 mg/dL (5-24); Calcium* 8.9 mg/dL (8.4-10.6); Carbon Dioxide* 23 mmol/L (20-32); Glucose* 106 mg/dL (60-115); Total Protein* 8.1 g/dL (6.0-8.3)
[2022-08-22 17:17] LABS: C.Difficile Negative (Negative); CDIFFEPI 027 PRESUMPTIVE NEGATIVE (Negative)
[2022-08-22 17:37] LABS: Basophils Percent Auto 0.2 % (0.0-3.0); Hematocrit 52.9 % (33.0-51.0); Hemoglobin* 18.1 gm/dL (12.0-16.0); Lymphocytes Percent Auto 7.2 % (20-44); Mean Corpuscular HGB Conc 34 gm/dL (32-36); Mean Corpuscular Hemoglobin 29 pg (26-34); Mean Corpuscular Volume 84 fL (80-100); Monocytes Percent Auto 8.8 % (0.0-11.0); Neutrophils Percent Auto 77.8 % (42.0-72.0); Platelet Count* 285 K/uL (140-440); Red Blood Count 6.33 m/uL (4.00-5.20); White Blood Count* 13.47 K/uL (4.50-11.00)
[2022-08-22 17:39] LABS: Slide Review Reflex No
[2022-08-22 18:00] VITALS: BP 110/84; PULSE 102; RESP 18; TEMP 37.2
[2022-08-22 18:01] VITALS: BP 115/78; PULSE 89; RESP 18; TEMP 36.9; O2SAT 96
== END 2022-08-22 18:01 | disposition home or self-care (01) ==
PROVIDERS: Emergency Provider Family Medicine; PCP Family Medicine
DX: R11.2 Nausea with vomiting, unspecified (principal); R19.7 Diarrhea, unspecified; Z86.19 Personal history of other infectious and parasitic diseases
CPT/HCPCS: 36415; 80053; 83605; 85025; 86140; 87493; 94761; 96361; 96374; 99284; J0780; J7030

== ENCOUNTER 2022-09-05 23:47 | Emergency (ER) | payer BC, MEDICAID, SELFPAY ==
[2022-09-05 23:58] VITALS: BP 122/83; PULSE 81; RESP 18; TEMP 36.7; O2SAT 95; BMI 29.1
--- NOTE | 2022-09-06 00:16 | ED_ITS ---
HPI - General Adult General Chief complaint: Laceration/Wound Stated complaint: Left wrist laceration Time Seen by Provider: 09/06/22 00:14 Source: patient History of Present Illness HPI narrative: Last Tdap May 2016. 22-year-old female to male transitioned patient presents after self-injury incident to the left forearm this evening. Patient reports that after a very minor argument with his girlfriend, he shut himself in the bathroom where he impulsively grabbed a razor and made a slice on his anterior left forearm. He was surprised that it was significantly deeper than previous similar episodes. Tried applying pressure but felt like the wound was too wide and seeks care. Denies suicidality. Admits that this was an impulsive move. Has a longstanding history of cutting and states that things have actually been under control. Does not feel like he needs to be hospitalized for safety. the have increased stress. Reports good relationship with his position and good compliance with mood medications. has not tried any topical care for the wound on the left forearm. Denies any other wounds. No alcohol or impairing substances on board tonight. Past medical history notable for transgender status and history of C diff last year. Home medications sertraline, trazodone, Abilify gabapentin methylphenidate and famotidine. Allergies are to Zofran. Socially, denies any impairing substances tonight. Multiple prior ED visits noted. ROS notable only for the skin symptoms as above. Otherwise denies any generalized, musculoskeletal, other skin or mental health needs today. Related Data Home Medications Medication Instructions Recorded Confirmed aripiprazole 5 mg tablet 5 mg PO DAILY 04/02/22 08/22/22 methylphenidate HCl 30 mg biphasic 30 mg PO DAILY 04/02/22 08/22/22 50-50 capsule,extended release (Ritalin LA) montelukast 10 mg tablet 10 mg PO DAILY 04/02/22 08/22/22 sertraline 100 mg tablet 100 mg PO DAILY 04/02/22 08/22/22 sertraline 25 mg tablet 25 mg PO DAILY 04/02/22 08/22/22 testosterone enanthate 200 mg/mL 50 mg subcut Q7D 04/02/22 08/22/22 intramuscular oil trazodone 150 mg tablet 150 mg PO HS 04/02/22 08/22/22 gabapentin 100 mg capsule 100 mg PO TID PRN 06/11/22 08/22/22 fluticasone furoate 200 1 inh inhalation DAILY 06/15/22 08/22/22 mcg-vilanterol 25 mcg/dose inhalation powder (Breo Ellipta) fluticasone propionate 50 1 spray intranasal DAILY PRN 06/15/22 06/15/22 mcg/actuation nasal spray,suspension famotidine 40 mg tablet mg 08/22/22 Previous Rx's Medication Instructions Recorded albuterol sulfate 90 mcg/actuation 2 puff inhalation 6XD PRN 06/09/22 aerosol inhaler shortness of breath or wheezing #8.5 grams ipratropium 0.5 mg-albuterol 3 mg 3 ml inhalation Q6H PRN #90 mL 06/09/22 (2.5 mg base)/3 mL nebulization soln prochlorperazine maleate 10 mg 10 mg PO Q6H PRN #20 tabs 06/29/22 tablet (Compazine) albuterol sulfate 90 mcg/actuation 2 puff inhalation Q6H PRN 07/02/22 aerosol inhaler (ProAir HFA) shortness of breath or wheezing #6.7 grams albuterol sulfate 90 mcg/actuation 2 inh inhalation Q6H #1 ea 07/02/22 breath activated powder inhaler,sensor (Proair Digihaler) Allergies Allergy/AdvReac Type Severity Reaction Status Date / Time ondansetron [From Zofran] AdvReac Verified 08/22/22 15:04 [facility] Medical History ADHD Anxiety Asthma Breast removal, prophylactic Community acquired pneumonia Depression Tobacco dependence Traumatic brain injury Surgical History [place] teeth removed Social History Highest level of school completed/degree received: high school graduate Smoking Status: Never smoker Do you use any of these nicotine containing products: E-Cigarettes and Vaping Products Nicotine containing products detail: Frequently Vapes Second hand tobacco smoke exposure: No How often do you have a drink containing alcohol: monthly or less How many standard drinks containing alcohol do you have on a typical day: 1 or 2 How often do you have six or more drinks on one occasion: Never AUDIT-C Alcohol total score: 1 Non-prescribed substance use: marijuana (any form) Non-prescribed substance use details: medical marijuana card Caffeine: No (Rarely) Do you think of yourself as: straight/heterosexual Gender Identity: male service: No Exam Const: Vital Signs, click to edit/add: Vital Signs - 24 hr 09/05/22 23:58 Temperature 98.1 F Pulse Rate [Pulse Oximeter] 81 Respiratory Rate 18 Blood Pressure [Le ft Upper Arm] 122/83 Pulse Oximetry 95 Documenting provider has reviewed patient's vital signs: yes Common normals: no apparent distress General appearance: cooperative and well kempt HENMT: Common normals: normocephalic Head and scalp: normocephalic Mouth: oral and palatal mucosa normal Throat: posterior oropharynx normal Eye: Common normals: conjunctivae normal General eye: normal appearance of both eyes Conjunctiva: conjunctiva(e) normal Resp: Common normals: normal respiratory effort Effort & inspection: able to speak in complete sentences Cardio: Common normals: regular rate, regular rhythm and peripheral pulses 2+ throughout Rate: regular rate Rhythm: regular rhythm Peripheral pulses: pulses 2+ throughout Extremity: Other: Right hand wrist and forearm move normally. There are no movement deficits. There is a 6 cm linear laceration consistent with self-injury and prior scars consistent with prior healed injuries on the left dorsal forearm. Minimal oozing. Gapes about a cm in the center. Not particularly deep, only to the le [place] of the dermis, muscles and underlying tissue are not affected. Neuro: Motor exam: no movement abnormalities noted Psych: Common normals: affect normal and speech normal Appearance: well kempt Attitude: engaged Speech: normal speech Insight: insight good Judgement: judgment good Skin: Narrative: Old scars of cutting noted, well healed. 6 cm fresh laceration of left dorsal forearm as stated above, no other areas of acute injury Course Vital Signs Vital signs: Initial Vital Signs Temperature 98.1 F 09/05/22 23:58 Temperature Source Temporal Artery Scan 09/05/22 23:58 Pulse Rate 81 09/05/22 23:58 Pulse Rhythm 09/05/22 23:58 Respiratory Rate 18 09/05/22 23:58 Blood Pressure 122/83 09/05/22 23:58 Blood Pressure Mean 96 09/05/22 23:58 Pulse Oximetry 95 09/05/22 23:58 Vital Signs Temperature 98.1 F 09/05/22 23:58 Pulse Rate 81 09/05/22 23:58 Respiratory Rate 18 09/05/22 23:58 Blood Pressure 122/83 09/05/22 23:58 Pulse Oximetry 95 09/05/22 23:58 Temperature 98.1 F 09/05/22 23:58 Pulse Rate 81 09/05/22 23:58 Respiratory Rate 18 09/05/22 23:58 Blood Pressure 122/83 09/05/22 23:58 Pulse Oximetry 95 09/05/22 23:58 Medical Decision Making MDM Narrative Medical decision making narrative: Extensively discussed with patient that he is not feeling suicidal. He admits that he was feeling overwhelmed, has a history of cutting, was immediately remorseful of the cut on the forearm. He was surprised that it seemed to gape much more than previous cutting episodes. Adamantly denies any suicidal idea tion. Has a good relationship with a counselor. He does not think that he needs to be hospitalized for his own safety. Girlfriend agrees. Admits that tonight's episode was impulsive. Will check in with therapist tomorrow. Your colon laceration closure. Tdap confirmed up-to-date. 6 cm laceration noted. Through the dermis only, not deep. Unfortunately does gape about a cm minimal active oozing. Verbal consent was obtained. Area was cleansed with alcohol wipe and then injected with 5 mL of 1% lidocaine without epinephrine. This caused good anesthesia. Area was then cleansed with chlorhexidine, then under sterile conditions, was closed with 5 sutures in a simple running fashion. Knot was tied in the middle and both ends with good hemostasis and reapproximation of tissues. Covered with antibiotic ointment, Band-Aid and instructed on wound care. Discharge Plan Discharge Clinical Impression: Laceration Patient Disposition: Home w/ Parent or Adult Condition: Improved Instructions: Laceration (DC) Additional Instructions: The cut was not very deep on your forearm. I agree with you that you do not need to be hospitalized for your own safety. It does seem as though the act was impulsive tonight. Please come back to the emergency department if you are having suicidal thoughts. Continue taking your medications as prescribed and be in close contact with your physician regarding your medications. There were 5 stitches placed in a running fashion in your forearm, tied in the middle. Your physician should be able to cut the 2nd and 4th stitches and remove these easily in 7-11 days. Keep the current dressing on for the 1st 24 hours then you may remove, gently wash with soap and water cover with antibiotic ointment again and a large Band-Aid. This does not need antibiotics. Please schedule your suture removal visit in the morning for ideally around 10 days from now. Call your primary care provider if there are any signs of complications. Activity Level: No Restrictions Discharge Diet: Regular Prescriptions: No Action sertraline 100 mg tablet 100 mg PO DAILY Label Comments: TOTAL DOSE = 125 MG DAILY trazodone 150 mg tablet 150 mg PO HS Label Comments: TAKE 1 TABLET BY MOUTH EVERYDAY AT BEDTIME sertraline 25 mg tablet 25 mg PO DAILY Label Comments: TOTAL DOSE = 125 MG DAILY montelukast 10 mg tablet 10 mg PO DAILY testosterone enanthate 200 mg/mL oil 50 mg subcut Q7D Rx Instructions: FRIDAYS aripiprazole 5 mg tablet 5 mg PO DAILY Label Comments: TAKE 1 TABLET BY MOUTH EVERY DAY methylphenidate HCl [Ritalin LA] 30 mg capsule,ER biphasic 50-50 30 mg PO DAILY Label Comments: TAKE 1 CAPSULE BY MOUTH EVERY DAY albuterol sulfate 90 mcg/actuation HFA aerosol inhaler 2 puff inhalation 6XD PRN (Reason: shortness of breath or wheezing) Qty: 8.5 1RF ipratropium-albuterol 0.5 mg-3 mg(2.5 mg base)/3 mL solution for nebulization 3 ml inhalation Q6H PRNQty: 90 1RF prochlorperazine maleate [Compazine] 10 mg tablet 10 mg PO Q6H PRNQty: 20 0RF Proair Digihaler 90 mcg/actuation aero powdr breath act w/sensor 2 inh inhalation Q6H Qty: 1 2RF albuterol sulfate [ProAir HFA] 90 mcg/actuation HFA aerosol inhaler 2 puff inhalation Q6H PRN (Reason: shortness of breath or wheezing) Qty: 6.7 0RF famotidine 40 mg tablet Label Comments: TAKE 1 TABLET BY MOUTH EVERY DAY gabapentin 100 mg capsule 100 mg PO TID PRN fluticasone furoate-vilanterol [Breo Ellipta] 200-25 mcg/dose blister with device 1 inh INHALATION DAILY Label Comments: INHALE 1 PUFF BY MOUTH EVERY DAY fluticasone propionate 50 mcg/actuation spray,suspension 1 spray INTRANASAL DAILY PRN Follow Up/Referrals: Shanthi Delgdaillo MD [Primary Care Provider] - Stand Alone Forms: [facility] Info Instructions
== END 2022-09-06 01:13 | disposition home or self-care (01) ==
LOC: ED 09-06 01:04
PROVIDERS: Emergency Provider Family Medicine; PCP Family Medicine
DX: S51.812A Laceration without foreign body of left forearm, initial encounter (principal); W26.0XXA Contact with knife, initial encounter
CPT/HCPCS: 12002; 99282; 99283

== ENCOUNTER 2023-06-02 09:03 | Outpatient (CLI) | payer BC, MEDICAID, SELFPAY ==
[2023-06-02 09:34] LABS: Strep A DNA Probe* NOT DETECTED (Not Detectd)
== END 2023-06-02 09:04 | disposition home or self-care (01) ==
LOC: NFLDUCREF 09:05
PROVIDERS: PCP Family Medicine; Visit Provider Registered Nurse
DX: J02.9 Acute pharyngitis, unspecified (principal)
CPT/HCPCS: 87651

== ENCOUNTER 2023-06-22 18:33 | Outpatient (CLI) | payer BC, MEDICARE, MEDICAID, SELFPAY | END 2023-06-22 18:34 | disposition home or self-care (01) | LOC: AMB 06-29 13:22 | PROVIDERS: PCP Family Medicine; Visit Provider Emergency Medicine | DX: J45.901 Unspecified asthma with (acute) exacerbation (principal) | CPT/HCPCS: A0425; A0427 ==

== ENCOUNTER 2023-06-22 19:03 | Emergency (ER) | payer MEDICARE, BC, MEDICAID, SELFPAY ==
[2023-06-22] VITALS (19 sets, daily range): BP systolic 104–122; BP diastolic 68–95; PULSE 86–127; RESP 36; TEMP 36.2; O2SAT 89–96; BMI 30.8
--- NOTE | 2023-06-22 19:16 | ED.ASTHMA ---
HPI - Asthma General Chief Complaint: Asthma Stated Complaint: Difficulty breathing/asthma Time Seen by Provider: 06/22/23 19:10 History of Present Illness HPI Narrative: This 23-year-old transgender to male comes in by ambulance because of asthma exacerbation. He states that he ran out of his medications 2 days ago. He became so short of breath that he lost consciousness prior to ambulance arrival. He has been hospitalized in the past for asthma exacerbation. There is no report of being intubated. He reports that he is taking albuterol, Combivent, Symbicort, and Singulair. He did not run out of his Singulair but he did the other medicines. He does smoke marijuana. He received 2 nebulizer treatments by ambulance personnel prior to arrival and he is feeling much better. He does arrive with some bilateral wheezes but is able to speak in complete sentences. He does not report any symptoms of upper respiratory infection. He does have a cough which is typical of asthma exacerbation. Related Data Home Medications Medication Instructions Recorded Confirmed aripiprazole 5 mg tablet 5 mg PO DAILY 04/02/22 06/02/23 montelukast 10 mg tablet 10 mg PO DAILY 04/02/22 06/02/23 sertraline 100 mg tablet 100 mg PO DAILY 04/02/22 06/02/23 sertraline 25 mg tablet 25 mg PO DAILY 04/02/22 06/02/23 testosterone enanthate 200 mg/mL 50 mg subcut Q7D 04/02/22 06/02/23 intramuscular oil trazodone 150 mg tablet 150 mg PO HS 04/02/22 06/02/23 fluticasone propionate 50 1 spray intranasal DAILY PRN 06/15/22 06/02/23 mcg/actuation nasal spray,suspension famotidine 40 mg tablet mg 08/22/22 06/02/23 budesonide-formoterol HFA 160 inhalation 06/02/23 06/02/23 mcg-4.5 mcg/actuation aerosol inhaler (Symbicort) dextroamphetamine-amphetamine ER 5 1 cap PO QAM 06/02/23 06/02/23 mg 24hr capsule,extend release hydroxyzine HCl 10 mg tablet 10 mg PO 3XD 06/02/23 06/02/23 ipratropium 20 mcg-albuterol 100 1 puff inhalation QID 06/02/23 06/02/23 mcg/actuation mist for inhalation (Combivent Respimat) mepolizumab 100 mg/mL subcutaneous mg subcut 06/22/23 auto-injector (Nucala) Previous Rx's Medication Instructions Recorded albuterol sulfate 90 mcg/actuation 2 puff inhalation 6XD PRN 06/09/22 aerosol inhaler shortness of breath or wheezing #8.5 grams ipratropium 0.5 mg-albuterol 3 mg 3 ml inhalation Q6H PRN #90 mL 06/09/22 (2.5 mg base)/3 mL nebulization soln prochlorperazine maleate 10 mg 10 mg PO Q6H PRN #20 tabs 06/29/22 tablet (Compazine) albuterol sulfate 90 mcg/actuation 2 puff inhalation Q6H PRN 07/02/22 aerosol inhaler (ProAir HFA) shortness of breath or wheezing #6.7 grams albuterol sulfate 90 mcg/actuation 2 inh inhalation Q6H #1 ea 07/02/22 breath activated powder inhaler,sensor (Proair Digihaler) Allergies Allergy/AdvReac Type Severity Reaction Status Date / Time ondansetron [From Zofran] AdvReac Verified 08/22/22 15:04 Review of Systems Status of ROS Reports: 10 or more systems reviewed and unremarkable except as noted in History and below Narrative Constitutional: No fevers, no weight gain or loss. Eyes: No discharge. No vision changes. HENT: No congestion, no sore throat, no ear pain. Cardiovascular: No chest pain, no palpitations. Respiratory: Shortness of breath with wheezes and occasional cough. Gastrointestinal: No abdominal pain, no vomiting, no diarrhea. Genitourinary: No dysuria, no hematuria. Musculoskeletal: Normal range of motion. Skin: No rashes, no pruritis. Neurological: No dizziness, weakness, sensory change, speech change. Endo/Heme/Allergies: No bruising or bleeding. No polydipsia. Pysch: no suicidality, no anxiety, no insomnia. All other systems reviewed and are negative. [facility] Medical History ADHD Anxiety Asthma Breast removal, prophylactic Community acquired pneumonia Depression Tobacco dependence Traumatic brain injury Surgical History [place] teeth removed Social History Highest level of school completed/degree received: high school graduate Smoking Status: Never smoker Do you use any of these nicotine containing products: E-Cigarettes and Vaping Products Nicotine containing products detail: Frequently Vapes Second hand tobacco smoke exposure: No How often do you have a drink containing alcohol: monthly or less How many standard drinks containing alcohol do you have on a typical day: 1 or 2 How often do you have six or more drinks on one occasion: Never AUDIT-C Alcohol total score: 1 Non-prescribed substance use: marijuana (any form) Non-prescribed substance use details: medical marijuana card Caffeine: No (Rarely) Do you think of yourself as: straight/heterosexual Gender Identity: male service: No Exam Narrative: Exam Narrative: Constitutional: Well-developed, well-nourished, no acute distress. HEENT: Normocephalic, atraumatic. Neck: Normal range of motion. Nontender. Supple. Heart: Regular. No murmurs. Normal rate. Intact distal pulses. Lungs: Bilateral inspiratory and expiratory wheezes. No use of accessory muscles for breathing. Able to speak in complete sentences. Abdomen: Normal bowel sounds. Nontender. No rebound tenderness. Genitalia: Deferred. Back: No midline tenderness. Normal range of motion. Extremities: Normal range of motion. No injury. Skin: Intact. No rash. Warm. No erythema or pallor. Neurologic: No altered sensation. No weakness. Alert and oriented. Psychiatric: No suicidality. No anxiety or depression. No insomnia. Nursing notes and vitals signs are reviewed. Const: Vital Signs, click to edit/add: Vital Signs - 24 hr 06/22/23 19:05 06/22/23 20:00 06/22/23 20:01 Temperature 97.2 F L Pulse Rate 127 H Pulse Rate [Pulse Oximeter] 112 H Respiratory Rate 36 H Blood Pressure Blood Pressure [Ri ght Upper Arm] 113/94 H Pulse Oximetry 91 91 90 Oxygen Delivery Me thod Room Air Nasal Cannula Oxygen Flow Rate 8 06/22/23 20:02 06/22/23 20:05 06/22/23 20:15 Temperature Pulse Rate 118 H 112 H Pulse Rate [Pulse Oximeter] Respiratory Rate Blood Pressure 119/68 Blood Pressure [Ri ght Upper Arm] Pulse Oximetry 92 90 94 Oxygen Delivery Me thod OxyMask Oxygen Flow Rate 8 Course Vital Signs Vital signs: Initial Vital Signs Temperature 97.2 F L 06/22/23 19:05 Temperature Source Temporal Artery Scan 06/22/23 19:05 Pulse Rate 112 H 06/22/23 19:05 Pulse Rhythm Regular 06/22/23 19:05 Respiratory Rate 36 H 06/22/23 19:05 Blood Pressure 113/94 H 06/22/23 19:05 Blood Pressure Mean 100 06/22/23 19:05 Blood Pressure Position Sitting 06/22/23 19:05 Pulse Oximetry 91 06/22/23 19:05 Oxygen Delivery Method Room Air 06/22/23 19:05 Vital Signs Temperature 97.2 F L 06/22/23 19:05 Pulse Rate 112 H 06/22/23 19:05 Respiratory Rate 36 H 06/22/23 19:05 Blood Pressure 113/94 H 06/22/23 19:05 Pulse Oximetry 91 06/22/23 19:05 Oxygen Delivery Method Room Air 06/22/23 19:05 Temperature 97.2 F L 06/22/23 19:05 Pulse Rate 112 H 06/22/23 20:15 Respiratory Rate 36 H 06/22/23 19:05 Blood Pressure 119/68 06/22/23 20:02 Pulse Oximetry 94 06/22/23 20:15 Oxygen Delivery Method OxyMask 06/22/23 20:05 Oxygen Flow Rate 8 06/22/23 20:05 MDM - Asthma MDM Narrative Medical decision making narrative: This 23-year-old transgender female to male comes in with asthma exacerbation. He arrives with cysts that is factory oximetry on room air and had bilateral wheezes but was able to speak in complete sentences. An IV was established where he received Solu-Medrol 125 mg. Labs are acquired an x-ray is obtained. The patient then had a significant coughing fit so intense that it was difficult to breathe. At that time he received another nebulizer treatment. He began to have decreased oxygen saturation and was given supplemental oxygen and now is on a non-rebreather mask at 8 L that is maintaining oximetry at 92%. Meanwhile his lungs seem to be sound more clear with less wheezes despite the need for oxygen supplementation. Labs and chest x-ray show no acute findings. The patient did receive IV dose of magnesium 2 mg and ketamine 20 mg infused over 20-30 minutes. I did speak with hospitalist predator control trapper, Dr. Uribe, who agrees to admit him into the hospital for ongoing management. Lab Data Labs: Lab Results 06/22/23 Range/Units 19:15 WBC 9.26 (4.50-11.00) K/uL RBC 6.72 H (4.00-5.20) m/uL Hgb 19.4 H (12.0-16.0) gm/dL Hct 57.0 H (33.0-51.0) % MCV 85 (80-100) fL MCH 29 (26-34) pg MCHC 34 (32-36) gm/dL RDW Coeff of Adriano 12.2 (11.5-15.5) % Plt Count 294 (140-440) K/uL Neut % (Auto) 59.6 (42.0-72.0) % Lymph % (Auto) 28.7 (20-44) % [place] % (Auto) 9.7 (0.0-11.0) % Eos % (Auto) 0.8 (0.0-7.0) % Baso % (Auto) 0.3 (0.0-3.0) % Neut # (Auto) 5.52 (1.7-7.0) K/uL Lymph # (Auto) 2.66 (0.90-2.90) K/uL [place] # (Auto) 0.90 (0.00-0.90) K/UL Eos # (Auto) 0.07 (0.00-0.50) K/uL Baso # (Auto) 0.03 (0.00-0.30) K/uL Abs Immat Gran (auto) 0.08 (0.00-0.30) K/uL Imm/Tot Granulo (auto) 0.9 % Sodium 142 (135-149) mmol/L Potassium 3.6 (3.6-5.1) mmol/L Chloride 106 (96-114) mmol/L Carbon Dioxide 26 (20-32) mmol/L Anion Gap 10 (7-15) mEq/L BUN 10 (5-24) mg/dL Creatinine 1.1 (0.5-1.5) mg/dL Estimated Creat Clear 71.57 Estimated GFR 72 ml/min Glucose 83 (60-115) mg/dL Calcium 9.7 (8.4-10.6) mg/dL Imaging Data Chest x-ray: Radiologist's impression: FINDINGS: The lungs are well expanded. No focal consolidations. No pulmonary edema. No pleural effusion. No pneumothorax. No pneumomediastinum. Normal cardiomediastinal silhouette. Bones: Normal for age. IMPRESSION: Lungs are clear. Normal chest radiographs. Discharge Plan Discharge Clinical Impression: Transgender man on hormone therapy, Asthma with acute exacerbation Patient Disposition: Admitted As Inpatient Condition: Unchanged Prescriptions: No Action dextroamphetamine-amphetamine 5 mg capsule,extended release 24hr 1 cap PO QAM hydroxyzine HCl 10 mg tablet 10 mg PO 3XD Combivent Respimat 20-100 mcg/actuation mist 1 puff inhalation QID budesonide-formoterol [Symbicort] 160-4.5 mcg/actuation HFA aerosol inhaler inhalation sertraline 100 mg tablet 100 mg PO DAILY Patient Comments: TOTAL DOSE = 125 MG DAILY trazodone 150 mg tablet 150 mg PO HS Patient Comments: TAKE 1 TABLET BY MOUTH EVERYDAY AT BEDTIME sertraline 25 mg tablet 25 mg PO DAILY Patient Comments: TOTAL DOSE = 125 MG DAILY montelukast 10 mg tablet 10 mg PO DAILY testosterone enanthate 200 mg/mL oil 50 mg subcut Q7D Rx Instructions: FRIDAYS aripiprazole 5 mg tablet 5 mg PO DAILY Patient Comments: TAKE 1 TABLET BY MOUTH EVERY DAY albuterol sulfate 90 mcg/actuation HFA aerosol inhaler 2 puff inhalation 6XD PRN (Reason: shortness of breath or wheezing) Qty: 8.5 1RF ipratropium-albuterol 0.5 mg-3 mg(2.5 mg base)/3 mL solution for nebulization 3 ml inhalation Q6H PRNQty: 90 1RF prochlorperazine maleate [Compazine] 10 mg tablet 10 mg PO Q6H PRNQty: 20 0RF Proair Digihaler 90 mcg/actuation aero powdr breath act w/sensor 2 inh inhalation Q6H Qty: 1 2RF albuterol sulfate [ProAir HFA] 90 mcg/actuation HFA aerosol inhaler 2 puff inhalation Q6H PRN (Reason: shortness of breath or wheezing) Qty: 6.7 0RF famotidine 40 mg tablet Patient Comments: TAKE 1 TABLET BY MOUTH EVERY DAY fluticasone propionate 50 mcg/actuation spray,suspension 1 spray INTRANASAL DAILY PRN Nucala 100 mg/mL auto-injector subcut Follow Up/Referrals: Shanthi Delgadillo MD [Primary Care Provider] -
--- NOTE | 2023-06-22 19:20 | CRLHL7_ITS ---
For Patients: As a result of the Century Cures Act, medical imaging exams and procedure reports are released immediately into your electronic medical record. You may view this report before your referring provider. If you have questions, please contact your health care provider. INDICATION: Asthma, difficulty breathing COMPARISON: 06/02/2023 TECHNIQUE: PA and lateral 2 view chest radiograph. FINDINGS: The lungs are well expanded. No focal consolidations. No pulmonary edema. No pleural effusion. No pneumothorax. No pneumomediastinum. Normal cardiomediastinal silhouette. Bones: Normal for age. IMPRESSION: Lungs are clear. Normal chest radiographs. Dictated by Marti Barron MD @ 06/22/2023 8:15:16 PM (Electronically Signed)
[2023-06-22] MEDS: IPRAT-ALBUT 0.5-2.5 MG/3 ML NEB 1 NEB IH (19:27)
[2023-06-22 19:29] LABS: Basophils Absolute Auto 0.03 K/uL (0.00-0.30); Basophils Percent Auto 0.3 % (0.0-3.0); Eosinophils Absolute Auto 0.07 K/uL (0.00-0.50); Eosinophils Percent Auto 0.8 % (0.0-7.0); Hemoglobin* 19.4 gm/dL (12.0-16.0); Immature Granulocytes Abs Auto 0.08 K/uL (0.00-0.30); Immature Granulocytes Pct Auto 0.9 %; Lymphocytes Absolute Auto 2.66 K/uL (0.90-2.90); Lymphocytes Percent Auto 28.7 % (20-44); Mean Corpuscular HGB Conc 34 gm/dL (32-36); Mean Corpuscular Hemoglobin 29 pg (26-34); Mean Corpuscular Volume 85 fL (80-100); Monocytes Percent Auto 9.7 % (0.0-11.0); Neutrophils Absolute Auto 5.52 K/uL (1.7-7.0); Neutrophils Percent Auto 59.6 % (42.0-72.0); Platelet Count* 294 K/uL (140-440); RDW Coefficient of Variation % 12.2 % (11.5-15.5); Red Blood Count 6.72 m/uL (4.00-5.20); White Blood Count* 9.26 K/uL (4.50-11.00)
[2023-06-22 19:33] LABS: Slide Review Reflex No
[2023-06-22 19:42] LABS: Chloride* 106 mmol/L (96-114); Potassium* 3.6 mmol/L (3.6-5.1); Sodium* 142 mmol/L (135-149)
[2023-06-22 19:44] LABS: Creatinine* 1.1 mg/dL (0.5-1.5); Est. Creatinine Clearance* 71.57; Estimated Glomerular Filt Rate 72 ml/min
[2023-06-22 19:45] LABS: Anion Gap 10 mEq/L (7-15); Blood Urea Nitrogen* 10 mg/dL (5-24); Calcium* 9.7 mg/dL (8.4-10.6); Carbon Dioxide* 26 mmol/L (20-32); Glucose* 83 mg/dL (60-115)
[2023-06-22] MEDS: METHYLPREDNISOLONE SOD SUCC 62.5 MG/ML (125) 125 MG IVP (19:45)
[2023-06-22] MEDS: KETAMINE HCL 20 MG in 0.9 % SODIUM CHLORIDE 100 ml 100 ML 300.6 MG IVPB (20:56)
--- NOTE | 2023-06-22 20:56 | ED.NURSE ---
Addendum entered by Peggy Mosquera RN 06/22/23 21:18: Patient sat in bed after ambulating and started coughing again, at rest patient then desat to 88%. Patient placed back on Oxymax at 6L. Upon completion of magnesium and ketamine patient states that he is feel like his breathing isnt so much work but it still is difficult to breathe at times. Original Note: patient ambulated to the bathroom off O2. Upon return to the room patient was 90% on room air.
[2023-06-22 21:12] LABS: D Dimer Quantitative* < 0.27 ug/ml (0.00-0.50)
--- NOTE | 2023-06-22 22:09 | ED.NURSE ---
patient stated that they felt improved and would like to discharge home. Patient educated on when to come back and on albuterol inhaler. Patient verbalized understanding and demonstrated understanding.
== END 2023-06-22 22:10 | disposition home or self-care (01) ==
PROVIDERS: Emergency Provider Emergency Medicine Emergency Medical Services; PCP Family Medicine
DX: J45.901 Unspecified asthma with (acute) exacerbation (principal)
CPT/HCPCS: 36415; 71046; 80048; 85025; 85379; 94640; 96365; 96375; 99284; J2930; J3475; J3490

== ENCOUNTER 2023-07-15 18:05 | Emergency (ER) | payer BC, MEDICARE, MEDICAID, SELFPAY ==
[2023-07-15 18:22] VITALS: BP 113/74; PULSE 118; RESP 20; TEMP 37; O2SAT 95; BMI 29.1
--- NOTE | 2023-07-15 18:27 | CRLHL7_ITS ---
For Patients: As a result of the Century Cures Act, medical imaging exams and procedure reports are released immediately into your electronic medical record. You may view this report before your referring provider. If you have questions, please contact your health care provider. INDICATION: [id number]. TECHNIQUE: Chest 2 views. COMPARISON: None. FINDINGS: Cardiovascular and mediastinum: Heart size and vasculature are normal in caliber and appearance. Lungs and pleural spaces: Lungs are clear. No sign of infiltrate or mass. No sign of pleural effusion. No pneumothorax. Bones and soft tissues: No significant findings. IMPRESSION: No acute or significant findings. Dictated by Benjamin De La Cruz MD @ 07/15/2023 8:01:00 PM (Electronically Signed)
--- NOTE | 2023-07-15 19:22 | ED.GENADULT ---
HPI - General Adult General Chief complaint: Shortness of Breath/Dyspnea Stated complaint: SOB, tight chest, cough Time Seen by Provider: 07/15/23 19:10 History of Present Illness HPI narrative: This 23-year-old female transition to male comes in reporting some shortness of breath. He has history of asthma symptoms and was seen by me about 3 weeks ago where he had more significant shortness of breath. Today he arrives with reassuring vital signs and oximetry at 95% on room air. He is able to speak in complete sentences. He states that he ran out of his albuterol and Combivent recently. He had run out of his medicines 3 weeks ago also necessitating a visit to the ER at that time. He does not report any fevers. Related Data Home Medications Medication Instructions Recorded Confirmed aripiprazole 5 mg tablet 5 mg PO DAILY 04/02/22 06/02/23 montelukast 10 mg tablet 10 mg PO DAILY 04/02/22 06/02/23 sertraline 100 mg tablet 100 mg PO DAILY 04/02/22 06/02/23 sertraline 25 mg tablet 25 mg PO DAILY 04/02/22 06/02/23 testosterone enanthate 200 mg/mL 50 mg subcut Q7D 04/02/22 06/02/23 intramuscular oil trazodone 150 mg tablet 150 mg PO HS 04/02/22 06/02/23 fluticasone propionate 50 1 spray intranasal DAILY PRN 06/15/22 06/02/23 mcg/actuation nasal spray,suspension famotidine 40 mg tablet mg 08/22/22 06/02/23 budesonide-formoterol HFA 160 inhalation 06/02/23 06/02/23 mcg-4.5 mcg/actuation aerosol inhaler (Symbicort) dextroamphetamine-amphetamine ER 5 1 cap PO QAM 06/02/23 06/02/23 mg 24hr capsule,extend release hydroxyzine HCl 10 mg tablet 10 mg PO 3XD 06/02/23 06/02/23 ipratropium 20 mcg-albuterol 100 1 puff inhalation QID 06/02/23 06/02/23 mcg/actuation mist for inhalation (Combivent Respimat) mepolizumab 100 mg/mL subcutaneous mg subcut 06/22/23 auto-injector (Nucala) Previous Rx's Medication Instructions Recorded albuterol sulfate 90 mcg/actuation 2 puff inhalation 6XD PRN 06/09/22 aerosol inhaler shortness of breath or wheezing #8.5 grams ipratropium 0.5 mg-albuterol 3 mg 3 ml inhalation Q6H PRN #90 mL 06/09/22 (2.5 mg base)/3 mL nebulization soln prochlorperazine maleate 10 mg 10 mg PO Q6H PRN #20 tabs 06/29/22 tablet (Compazine) albuterol sulfate 90 mcg/actuation 2 puff inhalation Q6H PRN 07/02/22 aerosol inhaler (ProAir HFA) shortness of breath or wheezing #6.7 grams albuterol sulfate 90 mcg/actuation 2 inh inhalation Q6H #1 ea 07/02/22 breath activated powder inhaler,sensor (Proair Digihaler) albuterol sulfate 90 mcg/actuation 2 puff inhalation QID #8.5 grams 07/15/23 aerosol inhaler ipratropium 20 mcg-albuterol 100 1 puff inhalation Q6H #4 grams 07/15/23 mcg/actuation mist for inhalation (Combivent Respimat) Allergies Allergy/AdvReac Type Severity Reaction Status Date / Time ondansetron [From Zofran] AdvReac Verified 08/22/22 15:04 Review of Systems Status of ROS: Reports: 10 or more systems reviewed and unremarkable except as noted in History and below Narrative: Constitutional: No fevers, no weight gain or loss. Eyes: No discharge. No vision changes. HENT: No congestion, no sore throat, no ear pain. Cardiovascular: No chest pain, no palpitations. Respiratory: Asthma symptoms increased since running out of some of his medications. Gastrointestinal: No abdominal pain, no vomiting, no diarrhea. Genitourinary: No dysuria, no hematuria. Musculoskeletal: Normal range of motion. Skin: No rashes, no pruritis. Neurological: No dizziness, weakness, sensory change, speech change. Endo/Heme/Allergies: No bruising or bleeding. No polydipsia. Pysch: no suicidality, no anxiety, no insomnia. All other systems reviewed and are negative. [facility] Medical History ADHD Anxiety Asthma Breast removal, prophylactic Community acquired pneumonia Depression Tobacco dependence Traumatic brain injury Surgical History [place] teeth removed Social History Highest level of school completed/degree received: high school graduate Smoking Status: Never smoker Do you use any of these nicotine containing products: E-Cigarettes and Vaping Products Nicotine containing products detail: Frequently Vapes Second hand tobacco smoke exposure: No How often do you have a drink containing alcohol: monthly or less How many standard drinks containing alcohol do you have on a typical day: 1 or 2 How often do you have six or more drinks on one occasion: Never AUDIT-C Alcohol total score: 1 Non-prescribed substance use: marijuana (any form) Non-prescribed substance use details: medical marijuana card Caffeine: No (Rarely) Do you think of yourself as: straight/heterosexual Gender Identity: male service: No Exam Narrative: Exam Narrative: Constitutional: Well-developed, well-nourished, no acute distress. HEENT: Normocephalic, atraumatic. Neck: Normal range of motion. Nontender. Supple. Heart: Regular. No murmurs. Normal rate. Intact distal pulses. Lungs: A few expiratory wheezes are heard on the left side. He is able to speak in complete sentences. No use of accessory muscles for breathing. Abdomen: Normal bowel sounds. Nontender. No rebound tenderness. Genitalia: Deferred. Back: No midline tenderness. Normal range of motion. Extremities: Normal range of motion. No injury. Skin: Intact. No rash. Warm. No erythema or pallor. Neurologic: No altered sensation. No weakness. Alert and oriented. Psychiatric: No suicidality. No anxiety or depression. No insomnia. Nursing notes and vitals signs are reviewed. Const: Vital Signs, click to edit/add: Vital Signs - 24 hr 07/15/23 18:22 Temperature 98.6 F Pulse Rate [Pulse Oximeter] 118 H Respiratory Rate 20 Blood Pressure [Ri ght Upper Arm] 113/74 Pulse Oximetry 95 Oxygen Delivery Me thod Room Air Course Vital Signs Vital signs: Initial Vital Signs Temperature 98.6 F 07/15/23 18:22 Temperature Source Temporal Artery Scan 07/15/23 18:22 Pulse Rate 118 H 07/15/23 18:22 Respiratory Rate 20 07/15/23 18:22 Blood Pressure 113/74 07/15/23 18:22 Blood Pressure Mean 87 07/15/23 18:22 Pulse Oximetry 95 07/15/23 18:22 Oxygen Delivery Method Room Air 07/15/23 18:22 Vital Signs Temperature 98.6 F 07/15/23 18:22 Pulse Rate 118 H 07/15/23 18:22 Respiratory Rate 20 07/15/23 18:22 Blood Pressure 113/74 07/15/23 18:22 Pulse Oximetry 95 07/15/23 18:22 Oxygen Delivery Method Room Air 07/15/23 18:22 Temperature 98.6 F 07/15/23 18:22 Pulse Rate 118 H 07/15/23 18:22 Respiratory Rate 20 07/15/23 18:22 Blood Pressure 113/74 07/15/23 18:22 Pulse Oximetry 95 07/15/23 18:22 Oxygen Delivery Method Room Air 07/15/23 18:22 Medical Decision Making MDM Narrative Medical decision making narrative: This patient comes in with report that he is more short of breath after running out of a couple of his asthma medications. He does arrive with normal vital signs. An x-ray is obtained which shows no acute findings by my review. On exam he is not showing any sign of respiratory distress. I did refill his albuterol and Combivent prescriptions and stress the importance of establishing regular care with a primary physician. He states that he does have a lung specialist that he sees but will not be able to see this provider for about 3 months. Discharge Plan Discharge Clinical Impression: Asthma Patient Disposition: Home, Self-Care Condition: Stable Additional Instructions: Use medications as needed and indicated. Follow up with primary care physician for ongoing management and with director of student aid also as scheduled. Prescriptions: New Combivent Respimat 20-100 mcg/actuation mist 1 puff inhalation Q6H Qty: 4 3RF albuterol sulfate 90 mcg/actuation HFA aerosol inhaler 2 puff inhalation QID Qty: 8.5 3RF No Action dextroamphetamine-amphetamine 5 mg capsule,extended release 24hr 1 cap PO QAM hydroxyzine HCl 10 mg tablet 10 mg PO 3XD Combivent Respimat 20-100 mcg/actuation mist 1 puff inhalation QID budesonide-formoterol [Symbicort] 160-4.5 mcg/actuation HFA aerosol inhaler inhalation sertraline 100 mg tablet 100 mg PO DAILY Patient Comments: TOTAL DOSE = 125 MG DAILY trazodone 150 mg tablet 150 mg PO HS Patient Comments: TAKE 1 TABLET BY MOUTH EVERYDAY AT BEDTIME sertraline 25 mg tablet 25 mg PO DAILY Patient Comments: TOTAL DOSE = 125 MG DAILY montelukast 10 mg tablet 10 mg PO DAILY testosterone enanthate 200 mg/mL oil 50 mg subcut Q7D Rx Instructions: FRIDAYS aripiprazole 5 mg tablet 5 mg PO DAILY Patient Comments: TAKE 1 TABLET BY MOUTH EVERY DAY albuterol sulfate 90 mcg/actuation HFA aerosol inhaler 2 puff inhalation 6XD PRN (Reason: shortness of breath or wheezing) Qty: 8.5 1RF ipratropium-albuterol 0.5 mg-3 mg(2.5 mg base)/3 mL solution for nebulization 3 ml inhalation Q6H PRNQty: 90 1RF prochlorperazine maleate [Compazine] 10 mg tablet 10 mg PO Q6H PRNQty: 20 0RF Proair Digihaler 90 mcg/actuation aero powdr breath act w/sensor 2 inh inhalation Q6H Qty: 1 2RF albuterol sulfate [ProAir HFA] 90 mcg/actuation HFA aerosol inhaler 2 puff inhalation Q6H PRN (Reason: shortness of breath or wheezing) Qty: 6.7 0RF famotidine 40 mg tablet Patient Comments: TAKE 1 TABLET BY MOUTH EVERY DAY fluticasone propionate 50 mcg/actuation spray,suspension 1 spray INTRANASAL DAILY PRN Nucala 100 mg/mL auto-injector subcut Follow Up/Referrals: Shanthi Delgadillo MD [Primary Care Provider] - Stand Alone Forms: [facility] Info Instructions
[2023-07-15 19:24] LABS: PCR FLU A Negative PCR FLU A (Negative); PCR FLU B Negative PCR FLU B (Negative); PCR RSV Negative PCR RSV (Negative)
[2023-07-15 19:37] LABS: SARS PCR* Negative SARS-CoV-2 (Negative)
[2023-07-15 19:40] VITALS: BP 109/66; PULSE 102; RESP 20; O2SAT 92
== END 2023-07-15 19:40 | disposition home or self-care (01) ==
LOC: ED 19:38
PROVIDERS: Emergency Provider Emergency Medicine Emergency Medical Services; PCP Family Medicine
DX: J45.909 Unspecified asthma, uncomplicated (principal)
CPT/HCPCS: 71046; 87631; 99284; 99285

== ENCOUNTER 2023-09-19 09:10 | Emergency (ER) | payer BC, MEDICARE, MEDICAID, SELFPAY ==
[2023-09-19 09:26] VITALS: BP 129/77; PULSE 75; RESP 16; TEMP 36.7; O2SAT 96
--- NOTE | 2023-09-19 09:39 | ED.ABDPAIN ---
HPI - Abdominal Pain General Time Seen by Provider: 09:39 Date Seen: 09/19/23 Chief Complaint: Abdominal Pain Stated Complaint: Lower R abdominal pain Time Seen by Provider: 09/19/23 09:39 Source: patient, RN notes reviewed and old records reviewed Mode of arrival: ambulatory Limitations: no limitations History of Present Illness HPI narrative: Jace is a very pleasant transgender female to male currently on testosterone with a history of C diff who comes to the emergency room for evaluation regarding right lower quadrant pain. Patient noted that this is similar to previous episode of C diff although his stools are soft rather than runny. He has not had fever or chills. He has had some vomiting today. Nor no recent weight loss. Cannot remember if the pain in his right lower quadrant started there or if it was in another location. No dysuria or hematuria. Past history of ovarian cyst per nursing. Still retains ovaries at this time. Related Data Home Medications Medication Instructions Recorded Confirmed aripiprazole 5 mg tablet 5 mg PO DAILY 04/02/22 09/19/23 montelukast 10 mg tablet 10 mg PO DAILY 04/02/22 09/19/23 sertraline 100 mg tablet 100 mg PO DAILY 04/02/22 09/19/23 sertraline 25 mg tablet 50 mg PO DAILY 04/02/22 09/19/23 testosterone enanthate 200 mg/mL 50 mg subcut Q7D 04/02/22 09/19/23 intramuscular oil trazodone 150 mg tablet 150 mg PO HS 04/02/22 09/19/23 fluticasone propionate 50 1 spray intranasal DAILY PRN 06/15/22 09/19/23 mcg/actuation nasal spray,suspension famotidine 40 mg tablet 40 mg PO DAILY 08/22/22 09/19/23 budesonide-formoterol HFA 160 2 inh inhalation Q12H 06/02/23 09/19/23 mcg-4.5 mcg/actuation aerosol inhaler (Symbicort) dextroamphetamine-amphetamine ER 5 10 mg PO BID 06/02/23 09/19/23 mg 24hr capsule,extend release hydroxyzine HCl 10 mg tablet 10 mg PO 3XD 06/02/23 09/19/23 mepolizumab 100 mg/mL subcutaneous 100 mg subcut .monthly 06/22/23 09/19/23 auto-injector (Nucala) Previous Rx's Medication Instructions Recorded ipratropium 0.5 mg-albuterol 3 mg 3 ml inhalation Q6H PRN #90 mL 06/09/22 (2.5 mg base)/3 mL nebulization soln albuterol sulfate 90 mcg/actuation 2 puff inhalation Q6H PRN 07/02/22 aerosol inhaler (ProAir HFA) shortness of breath or wheezing #6.7 grams albuterol sulfate 90 mcg/actuation 2 inh inhalation Q6H #1 ea 07/02/22 breath activated powder inhaler,sensor (Proair Digihaler) albuterol sulfate 90 mcg/actuation 2 puff inhalation Q4-6H PRN 09/08/23 aerosol inhaler shortness of breath or wheezing #8.5 grams ipratropium 20 mcg-albuterol 100 1 puff inhalation Q6H #4 grams 09/08/23 mcg/actuation mist for inhalation (Combivent Respimat) prochlorperazine maleate 10 mg 10 mg PO BID PRN #10 tabs 09/19/23 tablet (Compazine) Allergies Allergy/AdvReac Type Severity Reaction Status Date / Time ondansetron [From Zofran] AdvReac Verified 09/19/23 12:11 Review of Systems Status of ROS Reports: 10 or more systems reviewed and unremarkable except as noted in History and below Const Denies: fever or chills Cardio Denies: chest pain Resp Denies: cough GI Reports: abdominal pain, nausea and vomiting; Denies: constipation Denies: painful urination or urinary frequency PFSH PFSH Medical History Suicidal ideation (10/04/15) ?R45.851 - Suicidal ideations (ICD-10) 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) ?F06.30 - Mood disorder due to known physiological condition, unspecified (ICD-10) ?S06.9XAS - Unspecified intracranial injury with loss of consciousness status unknown, sequela (ICD-10) Nausea & vomiting ?R11.2 - Nausea with vomiting, unspecified (ICD-10) Colitis due to Clostridium difficile ?A04.72 - Enterocolitis due to Clostridium difficile, not specified as recurrent (ICD-10) Tobacco dependence ?F17.200 - Nicotine dependence, unspecified, uncomplicated (ICD-10) ADHD ?F90.9 - Attention-deficit hyperactivity disorder, unspecified type (ICD-10) Depression ?F32.A - Depression, unspecified (ICD-10) Anxiety ?F41.9 - Anxiety disorder, unspecified (ICD-10) Asthma ?J45.909 - Unspecified asthma, uncomplicated (ICD-10) Breast removal, prophylactic ?Z40.01 - Encounter for prophylactic removal of breast (ICD-10) Traumatic brain injury ?S06.9XAA - Unspecified intracranial injury with loss of consciousness status unknown, initial encounter (ICD-10) Community acquired pneumonia ?J18.9 - Pneumonia, unspecified organism (ICD-10) Surgical History Hannah teeth removed ?K08.409 - Partial loss of teeth, unspecified cause, unspecified class (ICD-10) Social History Highest level of school completed/degree received: high school graduate Smoking Status: Never smoker Do you use any of these nicotine containing products: E-Cigarettes and Vaping Products Nicotine containing products detail: Frequently Vapes Second hand tobacco smoke exposure: No How often do you have a drink containing alcohol: monthly or less How many standard drinks containing alcohol do you have on a typical day: 1 or 2 How often do you have six or more drinks on one occasion: Never AUDIT-C Alcohol total score: 1 Non-prescribed substance use: marijuana (any form) Non-prescribed substance use details: medical marijuana card Caffeine: No (Rarely) Do you think of yourself as: straight/heterosexual Gender Identity: male service: No Exam Narrative: Exam Narrative: Alert and oriented. Nontoxic in appearance. External ears eyes nose clear. Neck is supple. Heart with regular rate and rhythm and lungs are clear bilaterally. Abdomen shows right lower quadrant tenderness. Patient does endorse increased pain /rebound with examination. No pain with rotation of the right hip or straight leg raise. No evidence of distension or altered bowel sounds. Moving all extremities. Const: Vital Signs, click to edit/add: Vital Signs - 24 hr 09/19/23 09:26 Temperature 98.0 F Pulse Rate [Right Pulse Oximeter] 75 Respiratory Rate 16 Blood Pressure [Ri ght Upper Arm] 129/77 Pulse Oximetry 96 Oxygen Delivery Me thod Room Air Documenting provider has reviewed patient's vital signs: yes Course Course ED Course: Differential diagnosis includes but is not limited to C diff recurrence although unlikely given semi solid description of stools, colitis, ovarian cyst, appendicitis, diverticulitis, UTI, ureteral colic with kidney stone, we do talk about remaining kidneys. Ovarian torsion of course is unlikely but certainly on the list today. Patient states that he has no desire for children and would not be interested in saving and ovary if this was the case. Will place IV and use Toradol and Compazine for pain relief and nausea. Will check CBC, comprehensive panel, CRP, urinalysis and C diff. Reevaluation(s) Reevaluation #1: Patient notes mild pain relief with the Toradol but has had resolution of the nausea. C diff is negative. Patient continues to have discomfort and therefore will proceed with CT to rule out possibility of appendicitis. Vital Signs Vital signs: Initial Vital Signs Temperature 98.0 F 09/19/23 09:26 Temperature Source Temporal Artery Scan 09/19/23 09:26 Pulse Rate 75 09/19/23 09:26 Respiratory Rate 16 09/19/23 09:26 Blood Pressure 129/77 09/19/23 09:26 Blood Pressure Mean 94 09/19/23 09:26 Blood Pressure Position Sitting 09/19/23 09:26 Pulse Oximetry 96 09/19/23 09:26 Oxygen Delivery Method Room Air 09/19/23 09:26 Vital Signs Temperature 98.0 F 09/19/23 09:26 Pulse Rate 75 09/19/23 09:26 Respiratory Rate 16 09/19/23 09:26 Blood Pressure 129/77 09/19/23 09:26 Pulse Oximetry 96 09/19/23 09:26 Oxygen Delivery Method Room Air 09/19/23 09:26 Temperature 98.0 F 09/19/23 09:26 Pulse Rate 75 09/19/23 09:26 Respiratory Rate 16 09/19/23 09:26 Blood Pressure 129/77 09/19/23 09:26 Pulse Oximetry 96 09/19/23 09:26 Oxygen Delivery Method Room Air 09/19/23 09:26 Medications Administered Medications: Discontinued Medications Generic Name Dose Route Start Last Admin Trade Name Freq PRN Reason Stop Dose Admin Sodium Chloride 1,000 mls @ 1,000 mls/hr 09/19/23 10:01 09/19/23 10:18 0.9 % Sodium Chloride 1000 Ml IV 09/19/23 11:00 1,000 mls/hr .Q1H DIMITRIS Administration Ketorolac Tromethamine 15 mg 09/19/23 10:00 09/19/23 10:18 Ketorolac 15 Mg/Ml Inj IVP 09/19/23 10:01 15 mg ONCE ONE Administration Prochlorperazine 5 mg 09/19/23 10:00 09/19/23 10:18 Prochlorperazine 5 Mg/Ml Vial IVP 09/19/23 10:01 5 mg ONCE ONE Administration MDM - Abdominal Pain MDM Narrative Medical decision making narrative: 1. Abdominal pain-given the vomiting and the softer stools likely underlying viral in origin. At this time lab findings are all reassuring and CT shows no evidence of appendicitis or other abnormality. Given this patient will be discharged home. Ibuprofen or Tylenol may be used for discomfort. I would imagine that the vomiting will slowly ease over the next 6-8 hours but soft stools may pick continue for few days. Compazine 10 mg, 1/2-1 tab p.o. Q 12 hours p.r.n. 10. Sent to pharmacy for this patient. 2. Disposition-home at this time. Return for worsening symptoms or the onset of new symptoms. Medical Records Attestation: I reviewed the patient's medical records. Lab Data Attestation: I reviewed the patient's lab results. Labs: Lab Results 09/19/23 09/19/23 Range/Units 10:05 Unknown WBC 6.76 (4.50-11.00) K/uL RBC 5.90 H (4.00-5.20) m/uL Hgb 16.7 H (12.0-16.0) gm/dL Hct 50.3 (33.0-51.0) % MCV 85 (80-100) fL MCH 28 (26-34) pg MCHC 33 (32-36) gm/dL RDW Coeff of Adriano 11.8 (11.5-15.5) % Plt Count 322 (140-440) K/uL Neut % (Auto) 43.5 (42.0-72.0) % Lymph % (Auto) 41.6 (20-44) % [place] % (Auto) 11.5 H (0.0-11.0) % Eos % (Auto) 1.8 (0.0-7.0) % Baso % (Auto) 0.4 (0.0-3.0) % Neut # (Auto) 2.94 (1.7-7.0) K/uL Lymph # (Auto) 2.81 (0.90-2.90) K/uL [place] # (Auto) 0.80 (0.00-0.90) K/UL Eos # (Auto) 0.12 (0.00-0.50) K/uL Baso # (Auto) 0.03 (0.00-0.30) K/uL Abs Immat Gran (auto) 0.08 (0.00-0.30) K/uL Imm/Tot Granulo (auto) 1.2 % Sodium 140 (135-149) mmol/L Potassium 3.6 (3.6-5.1) mmol/L Chloride 107 (96-114) mmol/L Carbon Dioxide 25 (20-32) mmol/L Anion Gap 8 (7-15) mEq/L BUN 6 (5-24) mg/dL Creatinine 0.8 (0.5-1.5) mg/dL Estimated Creat Clear 98.41 Estimated GFR 106 ml/min Glucose 94 (60-115) mg/dL Calcium 8.9 (8.4-10.6) mg/dL Total Bilirubin 0.9 (0.1-1.5) mg/dL AST 29 (12-35) U/L ALT 28 (4-35) U/L Alkaline Phosphatase 64 (40-150) U/L C-Reactive Protein 0.7 (0.5-1.0) mg/dL Total Protein 7.2 (6.0-8.3) g/dL Albumin 4.1 (3.3-5.0) g/dL Urine Color Yellow (Yellow) Urine Appearance Clear (Clear) Urine pH 7.0 (5.0-8.5) Ur Specific [place] 1.015 (1.000-1.030) Urine Protein Negative (Negative) Urine Glucose (UA) Negative (Negative) Urine Ketones Negative (Negative) Urine Blood Negative (Negative) Urine Nitrite Negative (Negative) Urine Bilirubin Negative (Negative) Urine Urobilinogen 1.0 (0.2-1.0) Ur Leukocyte Esterase Negative (Negative) Stl C. diff Tox B Gene Negative (Negative) Stl C. diff [id number] PRESUMPTIVE NEGATIVE (Negative) Imaging Data CT scan - abdomen: Attestation: I have reviewed the pertinent imaging results. Radiologist's impression: JOSÉ MIGUEL BASES: The lung bases as visualized appear normal.The heart size is normal at the lung bases. LIVER/BILIARY SYSTEM:The liver is normal in size and configuration. There is no focal mass and there is no intra- or extra hepatic biliary ductal dilatation.The gall bladder appears normal. ADRENALS: Normal KIDNEYS, URETERS and BLADDER:The kidneys appear normal. The ureters are mildly dilated but this is bilateral and symmetric without point of obstruction. This is probably due to a distended bladder. SPLEEN:Normal appearance. PANCREAS: Appears normal. RETROPERITONEUM and MESENTERY: There is no mass, adenopathy or aortic aneurysm. GASTROINTESTINAL SYSTEM: There is no evidence of diverticulitis, colitis, mechanical obstruction, or appendicitis. The small bowel as visualized appears normal.Incidental intramural fat throughout the colon without visible inflammatory process. The appendix is well seen and appears not PELVIS: No mass, adenopathy or free fluid. OSSEOUS STRUCTURES and ABDOMINAL WALL: There is an age-appropriate appearance of the osseous structures.No significant abdominal wall defect. OTHER: No free fluid or free air. IMPRESSION: 1. No specific visible cause for right lower quadrant abdominal pain. 2. Incidental nonacute appearing findings as discussed above Discharge Plan Discharge Clinical Impression: Abdominal pain, vomiting, and diarrhea Condition: Improved Additional Instructions: Tylenol or ibuprofen may be used for discomfort. Try to push fluids as much as possible. At this time your CT shows no evidence of appendicitis, colitis or abnormality. Return to the emergency room for worsening symptoms. Compazine for nausea was sent to your pharmacy. Prescriptions: New prochlorperazine maleate [Compazine] 10 mg tablet 10 mg PO BID PRNQty: 10 0RF Rx Instructions: 1/2-1 tab every 12 hours as needed for nausea. No Action dextroamphetamine-amphetamine 5 mg capsule,extended release 24hr 10 mg PO BID hydroxyzine HCl 10 mg tablet 10 mg PO 3XD budesonide-formoterol [Symbicort] 160-4.5 mcg/actuation HFA aerosol inhaler 2 inh inhalation Q12H albuterol sulfate 90 mcg/actuation HFA aerosol inhaler 2 puff inhalation Q4-6H PRN (Reason: shortness of breath or wheezing) Qty: 8.5 3RF Combivent Respimat 20-100 mcg/actuation mist 1 puff inhalation Q6H Qty: 4 0RF sertraline 100 mg tablet 100 mg PO DAILY Patient Comments: TOTAL DOSE = 125 MG DAILY trazodone 150 mg tablet 150 mg PO HS Patient Comments: TAKE 1 TABLET BY MOUTH EVERYDAY AT BEDTIME sertraline 25 mg tablet 50 mg PO DAILY Patient Comments: TOTAL DOSE = 125 MG DAILY montelukast 10 mg tablet 10 mg PO DAILY testosterone enanthate 200 mg/mL oil 50 mg subcut Q7D Rx Instructions: FRIDAYS aripiprazole 5 mg tablet 5 mg PO DAILY Patient Comments: TAKE 1 TABLET BY MOUTH EVERY DAY ipratropium-albuterol 0.5 mg-3 mg(2.5 mg base)/3 mL solution for nebulization 3 ml inhalation Q6H PRNQty: 90 1RF Proair Digihaler 90 mcg/actuation aero powdr breath act w/sensor 2 inh inhalation Q6H Qty: 1 2RF albuterol sulfate [ProAir HFA] 90 mcg/actuation HFA aerosol inhaler 2 puff inhalation Q6H PRN (Reason: shortness of breath or wheezing) Qty: 6.7 0RF famotidine 40 mg tablet 40 mg PO DAILY Patient Comments: TAKE 1 TABLET BY MOUTH EVERY DAY fluticasone propionate 50 mcg/actuation spray,suspension 1 spray INTRANASAL DAILY PRN Nucala 100 mg/mL auto-injector 100 mg subcut .monthly Follow Up/Referrals: Shanthi Delgadillo MD [Primary Care Provider] -
[2023-09-19 09:49] LABS: Appearance Urine Clear (Clear); Bilirubin Urine Negative (Negative); Blood Urine Negative (Negative); Color Urine Yellow (Yellow); Glucose Urine Negative (Negative); Ketones Urine Negative (Negative); Leukocyte Esterase Urine Negative (Negative); Nitrite Urine Negative (Negative); Protein Urine Negative (Negative); Specific Gravity Urine 1.015 (1.000-1.030)
[2023-09-19 10:15] LABS: Basophils Absolute Auto 0.03 K/uL (0.00-0.30); Basophils Percent Auto 0.4 % (0.0-3.0); Eosinophils Absolute Auto 0.12 K/uL (0.00-0.50); Eosinophils Percent Auto 1.8 % (0.0-7.0); Hematocrit 50.3 % (33.0-51.0); Hemoglobin* 16.7 gm/dL (12.0-16.0); Immature Granulocytes Abs Auto 0.08 K/uL (0.00-0.30); Immature Granulocytes Pct Auto 1.2 %; Lymphocytes Absolute Auto 2.81 K/uL (0.90-2.90); Lymphocytes Percent Auto 41.6 % (20-44); Mean Corpuscular HGB Conc 33 gm/dL (32-36); Mean Corpuscular Hemoglobin 28 pg (26-34); Mean Corpuscular Volume 85 fL (80-100); Monocytes Percent Auto 11.5 % (0.0-11.0); Neutrophils Absolute Auto 2.94 K/uL (1.7-7.0); Neutrophils Percent Auto 43.5 % (42.0-72.0); Platelet Count* 322 K/uL (140-440); RDW Coefficient of Variation % 11.8 % (11.5-15.5); Slide Review Reflex No; White Blood Count* 6.76 K/uL (4.50-11.00)
[2023-09-19] MEDS: PROCHLORPERAZINE 5 MG/ML VIAL IVP (10:18)
[2023-09-19] MEDS: KETOROLAC 15 MG/ML inj IVP (10:18)
[2023-09-19] MEDS: 0.9 % SODIUM CHLORIDE 1000 ml 1,000 ML IV (10:18)
[2023-09-19 10:27] LABS: Albumin* 4.1 g/dL (3.3-5.0); Chloride* 107 mmol/L (96-114); Potassium* 3.6 mmol/L (3.6-5.1); Sodium* 140 mmol/L (135-149)
[2023-09-19 10:29] LABS: Creatinine* 0.8 mg/dL (0.5-1.5); Est. Creatinine Clearance* 98.41; Estimated Glomerular Filt Rate 106 ml/min
[2023-09-19 10:30] LABS: Alanine Aminotransferase* 28 U/L (4-35); Alkaline Phosphatase* 64 U/L (40-150); Anion Gap 8 mEq/L (7-15); Aspartate Amino Transferase* 29 U/L (12-35); Bilirubin Total* 0.9 mg/dL (0.1-1.5); Blood Urea Nitrogen* 6 mg/dL (5-24); Carbon Dioxide* 25 mmol/L (20-32); Total Protein* 7.2 g/dL (6.0-8.3)
--- OUTSIDE RECORDS SUMMARY | 2023-09-19 10:30 | XMS_ITS | Clinical Summary ---
Author Name Unknown [facility] Address [address] [address] Phone Care Team Providers Care [employer] Name Role Phone Elsewhere, Pcp Primary Care Provider Unavailabl e Allergies No known active allergies Medications Medication Sig Dispensed Refills Start Date End Date Status gabapentin (NEURONTIN) 100 MG capsuleIndications:Agg ressive Behavior,Agitation Take 1 Cap by mouth two times a day. Indications: Aggressive Behavior, Agitation 0 10/07/2015 Active traZODone (DESYREL) 50 MG tabletIndications:Inso mnia Take 0.5-1 Tabs by mouth at bedtime. Indications: Trouble Sleeping 30 Tab 1 10/07/2015 Active OLANZapine (ZYPREXA ZYDIS) 5 MG disintegrating tabletIndications:Irri tability, Aggressive Rages Take 1 Tab by mouth one time a day as needed for Other (Agitation). Indications: Irritability, Aggressive Rages 10 Tab 1 10/07/2015 Active divalproex ER (DEPAKOTE-ER) 500 MG 24 hour tabletIndications:Irri tability, Mood Swings secondary to TBI Take 1 Tab by mouth at bedtime. Swallow whole; do not crush or chew. Indications: Irritability, Mood Swings secondary to TBI 30 Tab 1 10/07/2015 Active Active Problems Problem Noted Date Diagnosed Date Suicidal ideation 10/04/2015 Mood disorder as late effect of traumatic brain injury 10/04/2015 Academic/educational problem 10/04/2015 Impulse control disorder 10/04/2015 Medical History Medical History Date Comments Suicidal ideation 10/04/2015 Mood disorder as late effect of traumatic brain injury (HCC) 10/04/2015 Academic/educational problem 10/04/2015 Impulse control disorder 10/04/2015 Disruptive mood dysregulatio n disorder (HCC) 09/21/2015 Dissociative and conversion disorder, unspecified Neurocognitive disorder 09/21/2015 Related to traumatic brain injury (postconcussion syndrome). Social anxiety disorder 09/21/2015 Pseudoseizure Depression 10/03/2015 Altered mental status 06/25/2015 Postconcussive syndrome 05/21/2015 Family History Medical History Relation Comments Anxiety Other Family hx. Depression Other Family hx. Relation Status Comments Other Social History Tobacco Use Types Packs/Day Years Used Date Smoking Tobacco: Never Assessed Sex and Gender Information Value Date Recorded Sex Assigned at Not on file Gender Identity Not on file Sexual Orientation Not on file Obstetrics History Last Filed Vital Signs Vital Sign Reading Time Taken Comments Blood Pressure 92/53 10/07/2015 7:15 PM [employer] Pulse 77 10/07/2015 7:15 PM [employer] Temperature 36.6 ??C (97.9 ??F) 10/07/2015 7:15 PM CS T Respiratory Rate 16 10/07/2015 9:00 PM [employer]OUT [employer] Oxygen Saturation 100% 10/06/2015 8:58 AM [employer] Inhaled Oxygen Concentration - - Weight 49.7 kg (109 lb 9.1 oz) 10/03/2015 2:19 P M [employer] Height 165.4 cm (5' 5.12) 10/03/2015 2:19 PM CS T Body Mass Index 18.17 10/03/2015 2:19 PM [employer] Plan of Treatment Health Maintenance Due Date Last Done Comments Cervical Cancer Screening 2000 Hepatitis B Vaccine (Standin g Order) (1 of 3 - 3-dose series) 2000 Last pap w/ HPV Testing 2000 Last pap w/o HPV Testing 2000 COVID-19 Vaccine (#1) 2000 HPV Vaccine (Standing Order) (1 - 2-dose series) 2009 Chlamydia Screening 2016 PERTUSSIS (Standing Order) 2019 TETANUS (Standing Order) 2019 Influenza Vaccine Seasonal (Standing Order) (#1) 2023 Pneumococcal/PCV20 Vaccine: Pediatrics (2-5 yrs) and At-Risk Patients (6-64 yrs) (Standing Order) Aged Out No longer eligible b ased on patient's age to complete this topic Care Teams [employer] Relationship Specialty Start Date End Date Elsewhere, Pcp PCP - General 10/03/15
[2023-09-19 10:31] LABS: Calcium* 8.9 mg/dL (8.4-10.6); Glucose* 94 mg/dL (60-115)
[2023-09-19 10:33] LABS: C Reactive Protein* 0.7 mg/dL (0.5-1.0)
--- NOTE | 2023-09-19 11:03 | CRLHL7_ITS ---
For Patients: As a result of the Century Cures Act, medical imaging exams and procedure reports are released immediately into your electronic medical record. You may view this report before your referring provider. If you have questions, please contact your health care provider. INDICATION: Right lower quadrant abdominal pain COMPARISON: August 08, 2022 TECHNIQUE: CT examination of the abdomen and pelvis was performed following the uneventful intravenous administration of 89 cc of Isovue 3 set. Thin section axial images were obtained from the lung bases through the pubic symphysis. Oral contrast was not administered. Please note that all CT scans at this facility use dose modulation, iterative reconstruction, and/or weight-based dosing when appropriate to reduce radiation dose to as low as reasonably achievable. FINDINGS: LUNG BASES: The lung bases as visualized appear normal.The heart size is normal at the lung bases. LIVER/BILIARY SYSTEM:The liver is normal in size and configuration. There is no focal mass and there is no intra- or extra hepatic biliary ductal dilatation.The gall bladder appears normal. ADRENALS: Normal KIDNEYS, URETERS and BLADDER:The kidneys appear normal. The ureters are mildly dilated but this is bilateral and symmetric without point of obstruction. This is probably due to a distended bladder. SPLEEN:Normal appearance. PANCREAS: Appears normal. RETROPERITONEUM and MESENTERY: There is no mass, adenopathy or aortic aneurysm. GASTROINTESTINAL SYSTEM: There is no evidence of diverticulitis, colitis, mechanical obstruction, or appendicitis. The small bowel as visualized appears normal.Incidental intramural fat throughout the colon without visible inflammatory process. The appendix is well seen and appears not PELVIS: No mass, adenopathy or free fluid. OSSEOUS STRUCTURES and ABDOMINAL WALL: There is an age-appropriate appearance of the osseous structures.No significant abdominal wall defect. OTHER: No free fluid or free air. IMPRESSION: 1. No specific visible cause for right lower quadrant abdominal pain. 2. Incidental nonacute appearing findings as discussed above Please note that all CT scans at this facility use dose modulation, iterative reconstruction, and/or weight-based dosing when appropriate to reduce radiation dose to as low as reasonably achievable. Dictated by Mario Wade MD @ 09/19/2023 12:33:40 PM (Electronically Signed)
[2023-09-19 11:54] LABS: C.Difficile Negative (Negative); CDIFFEPI 027 PRESUMPTIVE NEGATIVE (Negative)
== END 2023-09-19 13:12 | disposition home or self-care (01) ==
PROVIDERS: Emergency Provider Family Medicine; PCP Family Medicine
DX: R10.31 Right lower quadrant pain (principal); R19.7 Diarrhea, unspecified
CPT/HCPCS: 36415; 74177; 80053; 81003; 85025; 86140; 87493; 96374; 96375; 99284; J0780; J1885; J7030; Q9967

== ENCOUNTER 2023-10-26 22:57 | Emergency (ER) | payer BC, MEDICARE, MEDICAID, SELFPAY ==
[2023-10-26 23:05] VITALS: BP 145/77; PULSE 116; RESP 24; TEMP 36.1; O2SAT 92; BMI 30.8
--- NOTE | 2023-10-26 23:13 | XR_ITS ---
Final Report Patient: DANDRE ALVARADO Facility:?[facility] Patient ID:?[id number] Site Patient ID:?[id number]. Site :?[id number] Study:?XRay Chest PA AND LATERAL-10/26/2023 11:55:51 PM Ordering Physician:Melva Final Report: Indication: Shortness of breath Technique: Two views of the chest Comparison: Chest radiograph performed 07/15/2023 Findings/Impression: No acute cardiopulmonary process detected. Dictated by Mario Mendoza MD @ 10/27/2023 12:08:14 AM (Electronic Signature)
--- NOTE | 2023-10-26 23:20 | ED.GENADULT ---
HPI - General Adult General Chief complaint: Shortness of Breath/Dyspnea Stated complaint: Trouble Breathing Time Seen by Provider: 10/26/23 22:58 Source: patient Mode of arrival: ambulatory Limitations: no limitations History of Present Illness HPI narrative: 23-year-old transgender male coming in today complaining of shortness of breath. Patient does have a history of asthma. States that he has been short of breath for the last 2 days when last 24 hours it has gotten worse. States that he has taken 3 nebulizers today. He does smoke marijuana denies smoking tobacco. He does have a Symbicort as well as a Combivent inhaler that he uses regularly. Denies fevers or chills. No changes in his appetite. States that he recently finished a prednisone taper. Related Data Home Medications Medication Instructions Recorded Confirmed aripiprazole 5 mg tablet 5 mg PO DAILY 04/02/22 09/19/23 montelukast 10 mg tablet 10 mg PO DAILY 04/02/22 09/19/23 sertraline 100 mg tablet 100 mg PO DAILY 04/02/22 09/19/23 sertraline 25 mg tablet 50 mg PO DAILY 04/02/22 09/19/23 testosterone enanthate 200 mg/mL 50 mg subcut Q7D 04/02/22 09/19/23 intramuscular oil trazodone 150 mg tablet 150 mg PO HS 04/02/22 09/19/23 fluticasone propionate 50 1 spray intranasal DAILY PRN 06/15/22 09/19/23 mcg/actuation nasal spray,suspension famotidine 40 mg tablet 40 mg PO DAILY 08/22/22 09/19/23 budesonide-formoterol HFA 160 2 inh inhalation Q12H 06/02/23 09/19/23 mcg-4.5 mcg/actuation aerosol inhaler (Symbicort) dextroamphetamine-amphetamine ER 5 10 mg PO BID 06/02/23 09/19/23 mg 24hr capsule,extend release hydroxyzine HCl 10 mg tablet 10 mg PO 3XD 06/02/23 09/19/23 mepolizumab 100 mg/mL subcutaneous 100 mg subcut .monthly 06/22/23 09/19/23 auto-injector (Nucala) Previous Rx's Medication Instructions Recorded ipratropium 0.5 mg-albuterol 3 mg 3 ml inhalation Q6H PRN #90 mL 06/09/22 (2.5 mg base)/3 mL nebulization soln albuterol sulfate 90 mcg/actuation 2 puff inhalation Q6H PRN 07/02/22 aerosol inhaler (ProAir HFA) shortness of breath or wheezing #6.7 grams albuterol sulfate 90 mcg/actuation 2 inh inhalation Q6H #1 ea 07/02/22 breath activated powder inhaler,sensor (Proair Digihaler) albuterol sulfate 90 mcg/actuation 2 puff inhalation Q4-6H PRN 09/08/23 aerosol inhaler shortness of breath or wheezing #8.5 grams ipratropium 20 mcg-albuterol 100 1 puff inhalation Q6H #4 grams 09/08/23 mcg/actuation mist for inhalation (Combivent Respimat) prochlorperazine maleate 10 mg 10 mg PO BID PRN #10 tabs 09/19/23 tablet (Compazine) prednisone 20 mg tablet 20 mg PO DIRECTED 9 days #18 10/26/23 tabs Allergies Allergy/AdvReac Type Severity Reaction Status Date / Time ondansetron [From Zofran] AdvReac Verified 09/19/23 12:11 Review of Systems Status of ROS: Reports: 10 or more systems reviewed and unremarkable except as noted in History and below [facility] Medical History Suicidal ideation (10/04/15) ?R45.851 - Suicidal ideations (ICD-10) 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) ?F06.30 - Mood disorder due to known physiological condition, unspecified (ICD-10) ?S06.9XAS - Unspecified intracranial injury with loss of consciousness status unknown, sequela (ICD-10) Nausea & vomiting ?R11.2 - Nausea with vomiting, unspecified (ICD-10) Colitis due to Clostridium difficile ?A04.72 - Enterocolitis due to Clostridium difficile, not specified as recurrent (ICD-10) Tobacco dependence ?F17.200 - Nicotine dependence, unspecified, uncomplicated (ICD-10) ADHD ?F90.9 - Attention-deficit hyperactivity disorder, unspecified type (ICD-10) Depression ?F32.A - Depression, unspecified (ICD-10) Anxiety ?F41.9 - Anxiety disorder, unspecified (ICD-10) Asthma ?J45.909 - Unspecified asthma, uncomplicated (ICD-10) Breast removal, prophylactic ?Z40.01 - Encounter for prophylactic removal of breast (ICD-10) Traumatic brain injury ?S06.9XAA - Unspecified intracranial injury with loss of consciousness status unknown, initial encounter (ICD-10) Community acquired pneumonia ?J18.9 - Pneumonia, unspecified organism (ICD-10) Surgical History [place] teeth removed ?K08.409 - Partial loss of teeth, unspecified cause, unspecified class (ICD-10) Social History Highest level of school completed/degree received: high school graduate Smoking Status: Never smoker Do you use any of these nicotine containing products: E-Cigarettes and Vaping Products Nicotine containing products detail: Frequently Vapes Second hand tobacco smoke exposure: No How often do you have a drink containing alcohol: monthly or less How many standard drinks containing alcohol do you have on a typical day: 1 or 2 How often do you have six or more drinks on one occasion: Never AUDIT-C Alcohol total score: 1 Non-prescribed substance use: marijuana (any form) Non-prescribed substance use details: medical marijuana card Caffeine: No (Rarely) Do you think of yourself as: straight/heterosexual Gender Identity: male service: No Exam Narrative: Exam Narrative: Well-nourished well-developed patient who is extremely anxious. Alert and oriented x3. Answers questions appropriately. Mood and affect are appropriate. Thoughts are goal oriented and rational. No tangential or magical thinking noted. Patient speaks in full sentences without needing to catch his breath. He appears to be gasping for air but he can be distracted add when he starts talking his need for air decreases. Oxygen saturation at 92%, he does cough periodically. He is diaphoretic. HEENT: Normocephalic atraumatic. Pupils are equally round reactive to light. Extraocular muscles are intact. Conjunctivae are moist without any icterus noted. Moist mucous membranes. Posterior pharynx is normal. Neck is soft without any lymphadenopathy or thyromegaly. No masses are appreciated. Cardiovascular: Tachycardic, no murmurs. Lungs: He has very mild wheezing bilaterally. Abdomen: Soft and nontender nondistended with normal bowel sounds. Extremities: Bilateral lower extremities are without edema. Skin: Well perfused without any obvious rashes. Const: Vital Signs, click to edit/add: Vital Signs - 24 hr 10/26/23 23:05 10/26/23 23:31 10/26/23 23:36 Temperature 97.0 F L Pulse Rate [Left P ulse Oximeter] 116 H Respiratory Rate 24 Blood Pressure [Ri ght Upper Arm] 145/77 H Pulse Oximetry 92 94 94 Oxygen Delivery Me thod Room Air Room Air Course Course ED Course: Patient received a DuoNeb in 50 mg of oral prednisone as well as 0.25 mg of oral alprazolam. Labs Pending. Will call patient with results if positive. Xray, read by me, does not show any acute infiltrate. Repeat examination reveals that bilateral wheezing has completely resolved and patient feels significantly more comfortable. Vital Signs Vital signs: Initial Vital Signs Temperature 97.0 F L 10/26/23 23:05 Temperature Source Temporal Artery Scan 10/26/23 23:05 Pulse Rate 116 H 10/26/23 23:05 Pulse Rhythm Regular 10/26/23 23:05 Respiratory Rate 24 10/26/23 23:05 Blood Pressure 145/77 H 10/26/23 23:05 Blood Pressure Mean 99 10/26/23 23:05 Blood Pressure Position Sitting 10/26/23 23:05 Pulse Oximetry 92 10/26/23 23:05 Oxygen Delivery Method Room Air 10/26/23 23:05 Vital Signs Temperature 97.0 F L 10/26/23 23:05 Pulse Rate 116 H 10/26/23 23:05 Respiratory Rate 24 10/26/23 23:05 Blood Pressure 145/77 H 10/26/23 23:05 Pulse Oximetry 92 10/26/23 23:05 Oxygen Delivery Method Room Air 10/26/23 23:05 Temperature 97.0 F L 10/26/23 23:05 Pulse Rate 116 H 10/26/23 23:05 Respiratory Rate 24 10/26/23 23:05 Blood Pressure 145/77 H 10/26/23 23:05 Pulse Oximetry 94 10/26/23 23:36 Oxygen Delivery Method Room Air 10/26/23 23:36 Medications Administered Medications: Generic Name Dose Route Start Last Admin Trade Name [place] PRN Reason Stop Dose Admin Albuterol/Ipratropium 1 neb 10/26/23 23:11 10/26/23 23:22 Iprat-Albut 0.5-2.5 Mg/3 Ml Neb IH 10/26/23 23:12 1 neb ONCE ONE Administration Alprazolam 0.25 mg 10/26/23 23:12 10/26/23 23:22 Alprazolam 0.25 Mg Tablet PO 10/26/23 23:13 0.25 mg ONCE ONE Administration Prednisone 50 mg 10/26/23 23:11 10/26/23 23:22 Prednisone 10 Mg Tablet PO 10/26/23 23:12 50 mg ONCE ONE Administration Medical Decision Making MDM Narrative Medical decision making narrative: Acute asthma exacerbation. Patient will be sent home on a prednisone taper. He already has nebulizers at home. Follow-up with primary care next week. Discharge Plan Discharge Clinical Impression: Asthma with acute exacerbation Patient Disposition: Home, Self-Care Condition: Improved Additional Instructions: Take steroid as prescribed. We will call you if it the influenza or COVID test are positive. Prescriptions: New prednisone 20 mg tablet 20 mg PO DIRECTED 9 Days Qty: 18 0RF Rx Instructions: 60 mg p.o. daily for 3 days (3 tablets daily on day 1-3), 40 mg daily for 3 days (2 tablets daily on days 4-6), 20 mg daily for 3 days (1 tablet daily on days 7-9). No Action dextroamphetamine-amphetamine 5 mg capsule,extended release 24hr 10 mg PO BID hydroxyzine HCl 10 mg tablet 10 mg PO 3XD budesonide-formoterol [Symbicort] 160-4.5 mcg/actuation HFA aerosol inhaler 2 inh inhalation Q12H albuterol sulfate 90 mcg/actuation HFA aerosol inhaler 2 puff inhalation Q4-6H PRN (Reason: shortness of breath or wheezing) Qty: 8.5 3RF Combivent Respimat 20-100 mcg/actuation mist 1 puff inhalation Q6H Qty: 4 0RF sertraline 100 mg tablet 100 mg PO DAILY Patient Comments: TOTAL DOSE = 125 MG DAILY trazodone 150 mg tablet 150 mg PO HS Patient Comments: TAKE 1 TABLET BY MOUTH EVERYDAY AT BEDTIME sertraline 25 mg tablet 50 mg PO DAILY Patient Comments: TOTAL DOSE = 125 MG DAILY montelukast 10 mg tablet 10 mg PO DAILY testosterone enanthate 200 mg/mL oil 50 mg subcut Q7D Rx Instructions: FRIDAYS aripiprazole 5 mg tablet 5 mg PO DAILY Patient Comments: TAKE 1 TABLET BY MOUTH EVERY DAY ipratropium-albuterol 0.5 mg-3 mg(2.5 mg base)/3 mL solution for nebulization 3 ml inhalation Q6H PRNQty: 90 1RF Proair Digihaler 90 mcg/actuation aero powdr breath act w/sensor 2 inh inhalation Q6H Qty: 1 2RF albuterol sulfate [ProAir HFA] 90 mcg/actuation HFA aerosol inhaler 2 puff inhalation Q6H PRN (Reason: shortness of breath or wheezing) Qty: 6.7 0RF famotidine 40 mg tablet 40 mg PO DAILY Patient Comments: TAKE 1 TABLET BY MOUTH EVERY DAY fluticasone propionate 50 mcg/actuation spray,suspension 1 spray INTRANASAL DAILY PRN Nucala 100 mg/mL auto-injector 100 mg subcut .monthly prochlorperazine maleate [Compazine] 10 mg tablet 10 mg PO BID PRNQty: 10 0RF Rx Instructions: 1/2-1 tab every 12 hours as needed for nausea. Follow Up/Referrals: Shanthi Delgadillo MD [Primary Care Provider] - Stand Alone Forms: [facility] Info Instructions
[2023-10-26] MEDS: IPRAT-ALBUT 0.5-2.5 MG/3 ML NEB 1 NEB IH (23:22)
[2023-10-26] MEDS: ALPRAZolam 0.25 MG TABLET PO (23:22)
[2023-10-26] MEDS: predniSONE 10 MG TABLET 50 MG PO (23:22)
[2023-10-26 23:31] VITALS: O2SAT 94
[2023-10-26 23:36] VITALS: O2SAT 94
[2023-10-27 00:17] LABS: PCR FLU A Negative PCR FLU A (Negative); PCR FLU B Negative PCR FLU B (Negative); PCR RSV Negative PCR RSV (Negative); SARS PCR* Negative SARS-CoV-2 (Negative)
== END 2023-10-26 23:56 | disposition home or self-care (01) ==
PROVIDERS: Emergency Provider Family Medicine; PCP Family Medicine
DX: J45.901 Unspecified asthma with (acute) exacerbation (principal)
CPT/HCPCS: 71046; 87631; 94640; 94761; 99284; A9270; J7512

== ENCOUNTER 2023-11-14 21:43 | Emergency (ER) | payer BC, MEDICARE, MEDICAID, SELFPAY ==
[2023-11-14 21:48] VITALS: BP 123/86; PULSE 95; RESP 20; TEMP 36.9; O2SAT 99; BMI 30.8
--- NOTE | 2023-11-14 22:16 | CT_ITS ---
Patient: DANDRE ALVARADO Facility:?[facility] RIS Patient ID:?[id number] Site Patient ID:?[id number]. Site :?[id number] Study:?CT-Abdomen/Pelvis W/ 91CC ISOVUE 370-11/14/2023 11:02:19 PM Ordering Physician:OLGA Final Report: INDICATION: Abdominal pain. Right lower quadrant pain. TECHNIQUE: Multiplanar CT examination of the abdomen and pelvis was performed after the administration of 100 mL Omnipaque 350 intravenous contrast. COMPARISON: None. FINDINGS: Lower chest: No focal consolidation. Normal heart size. No pleural effusions or pneumothorax. Small hiatal hernia. Liver: Unremarkable. Gallbladder: Unremarkable. Biliary: Unremarkable. Pancreas: Within normal limits. Spleen: Unremarkable. Adrenal glands: Unremarkable. Renal/ureters/bladder: Normal in size and symmetrically enhancing. No obstructive uropathy. No hydronephrosis or obstructive urinary calculi. No suspicious renal masses. The ureters appear unremarkable. The bladder is within normal limits. Pelvis: The uterus appears unremarkable. There is a partially peripherally enhancing crenulated structure in the left ovary, probably a corpus luteal cyst incompletely characterized on this examination. Gastrointestinal: There is mild diffuse mural wall thickening and enhancement involving multiple loops of nondistended, fluid-filled small bowel in the left hemiabdomen. Appendix is normal in caliber. No significant colonic diverticulosis. Mild colonic stool burden. Vasculature: No aortic aneurysm. The portal vein remains patent. No significant atherosclerotic calcifications. Lymph nodes: No pathologic lymphadenopathy by size criteria. Peritoneum: No free fluid or pneumoperitoneum. No drainable fluid collections. Abdominal wall/soft tissues: Unremarkable. Small fat containing umbilical hernia. Bones: No acute osseous abnormalities. IMPRESSION: 1. Diffuse mural wall thickening and hyperenhancement involving multiple loops of nondistended, fluid-filled small bowel, raising the possibility of a nonspecific infectious versus inflammatory enteritis. 2. Normal caliber appendix. Please note that all CT scans at this facility use dose modulation, iterative reconstruction, and/or weight-based dosing when appropriate to reduce radiation dose to as low as reasonably achievable. Dictated by Shant Pacheco MD @ 11/14/2023 11:26:56 PM Signed by:?Shant Pacheco MD @11/14/2023 11:26:56 PM (Electronic Signature)
[2023-11-14] MEDS: METOCLOPRAMIDE HCL 5 MG/ML INJ 10 MG IVP (22:25)
[2023-11-14] MEDS: MORPHINE 4 MG/ML INJ IVP (22:25)
[2023-11-14] MEDS: LACTATED RINGERS 1000 ML 1,000 ML IV (22:25)
[2023-11-14 22:44] LABS: Basophils Percent Auto 0.1 % (0.0-3.0); Hematocrit 56.3 % (33.0-51.0); Hemoglobin* 18.7 gm/dL (12.0-16.0); Immature Granulocytes Pct Auto 1.6 %; Lymphocytes Percent Auto 8.7 % (20-44); Mean Corpuscular HGB Conc 33 gm/dL (32-36); Mean Corpuscular Hemoglobin 28 pg (26-34); Mean Corpuscular Volume 85 fL (80-100); Monocytes Percent Auto 6.8 % (0.0-11.0); Neutrophils Percent Auto 82.8 % (42.0-72.0); Platelet Count* 325 K/uL (140-440); RDW Coefficient of Variation % 12.1 % (11.5-15.5); Red Blood Count 6.62 m/uL (4.00-5.20); White Blood Count* 18.36 K/uL (4.50-11.00)
[2023-11-14 22:51] LABS: Slide Review Reflex No
--- NOTE | 2023-11-14 22:51 | ED.NAVMDI ---
HPI - Nausea/Vomiting/Diarrhea General Date Seen: 11/14/23 Chief complaint: Nausea/Vomiting Stated complaint: vomiting, stomach pain Time Seen by Provider: 11/14/23 21:50 Source: patient Mode of arrival: ambulatory Limitations: no limitations History of Present Illness HPI Narrative: Patient is a 23-year-old transgender male presenting to the emergency department for right lower quadrant abdominal pain, nausea, diarrhea. Patient states he woke up feeling very nauseated and has been having multiple episodes of watery diarrhea. States he has not had any formed stool. Every time he tries to eat he vomits. He does note he has pain in the right lower quadrant. Still has his appendix. No previous abdominal surgeries. Has not had any fevers or chills. Denies headache, vision changes, chest pain, shortness of breath, dysuria, weakness, numbness. Denies ever having symptoms like this before. Is not aware of any sick contacts. Is currently on hormone therapy for transition. No other concerns noted. Related Data Home Medications Medication Instructions Recorded Confirmed aripiprazole 5 mg tablet 5 mg PO DAILY 04/02/22 11/14/23 montelukast 10 mg tablet 10 mg PO DAILY 04/02/22 11/14/23 sertraline 100 mg tablet 100 mg PO DAILY 04/02/22 11/14/23 sertraline 25 mg tablet 50 mg PO DAILY 04/02/22 11/14/23 testosterone enanthate 200 mg/mL 50 mg subcut Q7D 04/02/22 11/14/23 intramuscular oil trazodone 150 mg tablet 150 mg PO HS 04/02/22 11/14/23 fluticasone propionate 50 1 spray intranasal DAILY PRN 06/15/22 09/19/23 mcg/actuation nasal spray,suspension famotidine 40 mg tablet 40 mg PO DAILY 08/22/22 09/19/23 budesonide-formoterol HFA 160 2 inh inhalation Q12H 06/02/23 11/14/23 mcg-4.5 mcg/actuation aerosol inhaler (Symbicort) dextroamphetamine-amphetamine ER 5 10 mg PO BID 06/02/23 09/19/23 mg 24hr capsule,extend release hydroxyzine HCl 10 mg tablet 10 mg PO 3XD 06/02/23 11/14/23 mepolizumab 100 mg/mL subcutaneous 100 mg subcut .monthly 06/22/23 11/14/23 auto-injector (Nucala) Previous Rx's Medication Instructions Recorded ipratropium 0.5 mg-albuterol 3 mg 3 ml inhalation Q6H PRN #90 mL 06/09/22 (2.5 mg base)/3 mL nebulization soln albuterol sulfate 90 mcg/actuation 2 puff inhalation Q4-6H PRN 09/08/23 aerosol inhaler shortness of breath or wheezing #8.5 grams ipratropium 20 mcg-albuterol 100 1 puff inhalation Q6H #4 grams 09/08/23 mcg/actuation mist for inhalation (Combivent Respimat) prochlorperazine maleate 10 mg 10 mg PO TID PRN #14 tabs 11/15/23 tablet (Compazine) Allergies Allergy/AdvReac Type Severity Reaction Status Date / Time ondansetron [From Zofran] AdvReac Mild Vomiting Verified 11/14/23 23:03 Review of Systems Status of ROS: Reports: 10 or more systems reviewed and unremarkable except as noted in History and below [facility] Medical History Suicidal ideation (10/04/15) ?R45.851 - Suicidal ideations (ICD-10) 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) ?F06.30 - Mood disorder due to known physiological condition, unspecified (ICD-10) ?S06.9XAS - Unspecified intracranial injury with loss of consciousness status unknown, sequela (ICD-10) Nausea & vomiting ?R11.2 - Nausea with vomiting, unspecified (ICD-10) Colitis due to Clostridium difficile ?A04.72 - Enterocolitis due to Clostridium difficile, not specified as recurrent (ICD-10) Tobacco dependence ?F17.200 - Nicotine dependence, unspecified, uncomplicated (ICD-10) ADHD ?F90.9 - Attention-deficit hyperactivity disorder, unspecified type (ICD-10) Depression ?F32.A - Depression, unspecified (ICD-10) Anxiety ?F41.9 - Anxiety disorder, unspecified (ICD-10) Asthma ?J45.909 - Unspecified asthma, uncomplicated (ICD-10) Breast removal, prophylactic ?Z40.01 - Encounter for prophylactic removal of breast (ICD-10) Traumatic brain injury ?S06.9XAA - Unspecified intracranial injury with loss of consciousness status unknown, initial encounter (ICD-10) Community acquired pneumonia ?J18.9 - Pneumonia, unspecified organism (ICD-10) Surgical History [place] teeth removed ?K08.409 - Partial loss of teeth, unspecified cause, unspecified class (ICD-10) Social History Highest level of school completed/degree received: high school graduate Smoking Status: Never smoker Do you use any of these nicotine containing products: E-Cigarettes and Vaping Products Nicotine containing products detail: Frequently Vapes Second hand tobacco smoke exposure: No How often do you have a drink containing alcohol: monthly or less How many standard drinks containing alcohol do you have on a typical day: 1 or 2 How often do you have six or more drinks on one occasion: Never AUDIT-C Alcohol total score: 1 Non-prescribed substance use: marijuana (any form) Non-prescribed substance use details: medical marijuana card Caffeine: No (Rarely) Do you think of yourself as: straight/heterosexual Gender Identity: male service: No Exam Narrative: Exam Narrative: Const: Well-nourished, Well-developed, in moderate distress Eyes: PERRL, no conjunctival injection, and symmetrical lids HENT: Atraumatic external nose and ears. Moist mucous membranes. Neck: Symmetric, trachea midline, No thyromegaly. CVS: RRR, No murmurs or gallops. Peripheral pulses 2+ and equal in all extremities RESP: Unlabored respiratory effort. Clear to auscultation bilaterally. GI: Right lower quadrant tenderness, Nondistended, No rebound or guarding. MSK:Extremities w/o deformity, Normal Active ROM Skin: Warm, Dry. No rashes or lesions. Neuro: Normal Muscle tone, No focal neurological deficits. Psych: Awake, Alert, & Oriented x3. Appropriate mood and affect. Const: Vital Signs, click to edit/add: Vital Signs - 24 hr 11/14/23 21:48 11/14/23 23:46 Temperature 98.5 F Pulse Rate 101 H Pulse Rate [Right Pulse Oximeter] 95 Respiratory Rate 20 Blood Pressure [Ri ght Upper Arm] 123/86 Pulse Oximetry 99 99 Oxygen Delivery Me thod Room Air Room Air Course Vital Signs Vital signs: Initial Vital Signs Temperature 98.5 F 11/14/23 21:48 Temperature Source Temporal Artery Scan 11/14/23 21:48 Pulse Rate 95 11/14/23 21:48 Respiratory Rate 20 11/14/23 21:48 Blood Pressure 123/86 11/14/23 21:48 Blood Pressure Mean 98 11/14/23 21:48 Blood Pressure Position Sitting 11/14/23 21:48 Pulse Oximetry 99 11/14/23 21:48 Oxygen Delivery Method Room Air 11/14/23 21:48 Vital Signs Temperature 98.5 F 11/14/23 21:48 Pulse Rate 95 11/14/23 21:48 Respiratory Rate 20 11/14/23 21:48 Blood Pressure 123/86 11/14/23 21:48 Pulse Oximetry 99 11/14/23 21:48 Oxygen Delivery Method Room Air 11/14/23 21:48 Temperature 98.5 F 11/14/23 21:48 Pulse Rate 101 H 11/14/23 23:46 Respiratory Rate 20 11/14/23 21:48 Blood Pressure 123/86 11/14/23 21:48 Pulse Oximetry 99 11/14/23 23:46 Oxygen Delivery Method Room Air 11/14/23 23:46 Medications Administered Medications: Discontinued Medications Generic Name Dose Route Start Last Admin Trade Name Freq PRN Reason Stop Dose Admin Lactated Ringer's 1,000 mls @ 1,000 mls/hr 11/14/23 22:16 11/15/23 00:09 Lactated Ringers 1000 Ml IV 11/14/23 23:15 Infused .Q1H ONE Infusion Metoclopramide HCl 10 mg 11/14/23 22:16 11/14/23 22:25 Metoclopramide Hcl 5 Mg/Ml Inj IVP 11/14/23 22:17 10 mg ONCE ONE Administration Morphine Sulfate 4 mg 11/14/23 22:16 11/14/23 22:25 Morphine 4 Mg/Ml Inj IVP 11/14/23 22:17 4 mg ONCE ONE Administration Prochlorperazine 10 mg 11/14/23 23:47 11/14/23 23:47 Prochlorperazine 5 Mg/Ml Vial IV 11/14/23 23:48 10 mg ONCE ONE Administration MDM - Nausea/Vomiting/Diarrhea MDM Narrative Medical decision making narrative: Patient is a 23-year-old transgender male presenting for nausea, vomiting, right lower quadrant abdominal pain. He is having watery diarrhea and will test for C diff. Sample was received. Also do a CT scan as I am concerned for appendicitis at this time. Could also be colitis, gastroenteritis. Seems unlikely to be in SBO considering he is having this diarrhea and has had no previous abdominal surgeries. He is allergic to Zofran and Reglan was given. Will also give a L of fluid and morphine for pain. CBC, CMP, coags as flu/RSV, magnesium also ordered. Lab work all returned showing no concerning abnormalities other than a white count of 18.3. This could be infectious at the allergy or could just be stress reaction from all of his vomiting. He has vomited a large amount here in the emergency department. CMP shows no concerning findings. C diff is negative. COVID/flu/RSV is also negative. CT scan returned showed diffuse mural wall thickening involving nondistended parts of the small bowel. This is nonspecific and can be infectious versus inflammatory enteritis. He was still nauseated after the Reglan and Compazine was given. I spoke to a more and he does states he smokes marijuana regularly. This could be cannabinoid hyperemesis syndrome that has been exacerbated by enteritis. If his symptoms persist I will try Haldol. At this time for his enteritis I do not believe antibiotics are necessary. There is no blood in his stool and an invasive bacterial infection seems unlikely. He was successfully able to p.o. challenge. Patient feels comfortable for discharge. I will give him a prescription for Compazine since that is what helped. He is agreeable to this plan Lab Data Labs: Lab Results 11/14/23 11/14/23 Range/Units 21:15 22:20 WBC 18.36 H (4.50-11.00) K/uL RBC 6.62 H (4.00-5.20) m/uL Hgb 18.7 H (12.0-16.0) gm/dL Hct 56.3 H (33.0-51.0) % MCV 85 (80-100) fL MCH 28 (26-34) pg MCHC 33 (32-36) gm/dL RDW Coeff of Adriano 12.1 (11.5-15.5) % Plt Count 325 (140-440) K/uL Neut % (Auto) 82.8 H (42.0-72.0) % Lymph % (Auto) 8.7 L (20-44) % [place] % (Auto) 6.8 (0.0-11.0) % Eos % (Auto) 0.0 (0.0-7.0) % Baso % (Auto) 0.1 (0.0-3.0) % Neut # (Auto) 15.20 H (1.7-7.0) K/uL Lymph # (Auto) 1.60 (0.90-2.90) K/uL [place] # (Auto) 1.20 H (0.00-0.90) K/UL Eos # (Auto) 0.00 (0.00-0.50) K/uL Baso # (Auto) 0.00 (0.00-0.30) K/uL Abs Immat Gran (auto) 0.30 (0.00-0.30) K/uL Imm/Tot Granulo (auto) 1.6 % Sodium 140 (135-149) mmol/L Potassium 3.8 (3.6-5.1) mmol/L Chloride 104 (96-114) mmol/L Carbon Dioxide 27 (20-32) mmol/L Anion Gap 9 (7-15) mEq/L BUN 12 (5-24) mg/dL Creatinine 1.0 (0.5-1.5) mg/dL Estimated Creat Clear 78.73 Estimated GFR 81 ml/min Glucose 89 (60-115) mg/dL Calcium 9.4 (8.4-10.6) mg/dL Magnesium 1.8 (1.5-2.6) mg/dL Total Bilirubin 1.4 (0.1-1.5) mg/dL AST 27 (12-35) U/L ALT 23 (4-35) U/L Alkaline Phosphatase 70 (40-150) U/L Total Protein 8.1 (6.0-8.3) g/dL Albumin 4.5 (3.3-5.0) g/dL Stl C. diff Tox B Gene Negative (Negative) Stl C. diff [id number] PRESUMPTIVE NEGATIVE (Negative) SARS-CoV-2 (PCR) Negative SARS-CoV-2 (Negative) Influenza Type A (PCR) Negative PCR FLU A (Negative) Influenza Type B (PCR) Negative PCR FLU B (Negative) RSV (PCR) Negative PCR RSV (Negative) Imaging Data CT scan abdomen and pelvis: Radiologist's impression: 1. Diffuse mural wall thickening and hyperenhancement involving multiple loops of nondistended, fluid-filled small bowel, raising the possibility of a nonspecific infectious versus inflammatory enteritis. 2. Normal caliber appendix. Please note that all CT scans at this facility use dose modulation, iterative reconstruction, and/or weight-based dosing when appropriate to reduce radiation dose to as low as reasonably achievable. Dictated by Shant Pacheco MD @ 11/14/2023 11:26:56 PM Discharge Plan Discharge Clinical Impression: Gastroenteritis, Cannabinoid hyperemesis syndrome Patient Disposition: Home, Self-Care Condition: Improved Instructions: Gastroenteritis (DC) Additional Instructions: I believe your symptoms are combination of cannabinoid hyperemesis syndrome and your enteritis. I recommend not using any marijuana until your abdominal symptoms have fully resolved. Take that nausea medicine as needed. May she take nausea medicine as soon as he started feeling nauseated so that you are able to keep it down. It is reasonable to follow up with the primary care provider if the symptoms persist into next week. Is very important you stay well hydrated. Prescriptions: New prochlorperazine maleate [Compazine] 10 mg tablet 10 mg PO TID PRNQty: 14 0RF No Action dextroamphetamine-amphetamine 5 mg capsule,extended release 24hr 10 mg PO BID hydroxyzine HCl 10 mg tablet 10 mg PO 3XD budesonide-formoterol [Symbicort] 160-4.5 mcg/actuation HFA aerosol inhaler 2 inh inhalation Q12H albuterol sulfate 90 mcg/actuation HFA aerosol inhaler 2 puff inhalation Q4-6H PRN (Reason: shortness of breath or wheezing) Qty: 8.5 3RF Combivent Respimat 20-100 mcg/actuation mist 1 puff inhalation Q6H Qty: 4 0RF sertraline 100 mg tablet 100 mg PO DAILY Patient Comments: TOTAL DOSE = 125 MG DAILY trazodone 150 mg tablet 150 mg PO HS Patient Comments: TAKE 1 TABLET BY MOUTH EVERYDAY AT BEDTIME sertraline 25 mg tablet 50 mg PO DAILY Patient Comments: TOTAL DOSE = 125 MG DAILY montelukast 10 mg tablet 10 mg PO DAILY testosterone enanthate 200 mg/mL oil 50 mg subcut Q7D Rx Instructions: FRIDAYS aripiprazole 5 mg tablet 5 mg PO DAILY Patient Comments: TAKE 1 TABLET BY MOUTH EVERY DAY ipratropium-albuterol 0.5 mg-3 mg(2.5 mg base)/3 mL solution for nebulization 3 ml inhalation Q6H PRNQty: 90 1RF famotidine 40 mg tablet 40 mg PO DAILY Patient Comments: TAKE 1 TABLET BY MOUTH EVERY DAY fluticasone propionate 50 mcg/actuation spray,suspension 1 spray INTRANASAL DAILY PRN Nucala 100 mg/mL auto-injector 100 mg subcut .monthly Follow Up/Referrals: Shanthi Delgadillo MD [Primary Care Provider] - Stand Alone Forms: [facility] Info Instructions
[2023-11-14 23:10] LABS: PCR FLU A Negative PCR FLU A (Negative); PCR FLU B Negative PCR FLU B (Negative); PCR RSV Negative PCR RSV (Negative); SARS PCR* Negative SARS-CoV-2 (Negative)
[2023-11-14 23:11] LABS: Albumin* 4.5 g/dL (3.3-5.0); Chloride* 104 mmol/L (96-114); Potassium* 3.8 mmol/L (3.6-5.1); Sodium* 140 mmol/L (135-149)
[2023-11-14 23:13] LABS: Bilirubin Total* 1.4 mg/dL (0.1-1.5); Est. Creatinine Clearance* 78.73; Estimated Glomerular Filt Rate 81 ml/min
[2023-11-14 23:14] LABS: Alanine Aminotransferase* 23 U/L (4-35); Alkaline Phosphatase* 70 U/L (40-150); Anion Gap 9 mEq/L (7-15); Aspartate Amino Transferase* 27 U/L (12-35); Blood Urea Nitrogen* 12 mg/dL (5-24); Calcium* 9.4 mg/dL (8.4-10.6); Carbon Dioxide* 27 mmol/L (20-32); Glucose* 89 mg/dL (60-115); Total Protein* 8.1 g/dL (6.0-8.3)
[2023-11-14 23:15] LABS: Magnesium* 1.8 mg/dL (1.5-2.6)
[2023-11-14 23:15] LABS: C.Difficile Negative (Negative); CDIFFEPI 027 PRESUMPTIVE NEGATIVE (Negative)
[2023-11-14 23:46] VITALS: PULSE 101; O2SAT 99
[2023-11-14] MEDS: PROCHLORPERAZINE 5 MG/ML VIAL 10 MG IV (23:47)
[2023-11-15] VITALS: O2SAT 97
== END 2023-11-15 01:23 | disposition home or self-care (01) ==
PROVIDERS: Emergency Provider Student in an Organized Health Care Education/Training Program; PCP Family Medicine
DX: K52.9 Noninfective gastroenteritis and colitis, unspecified (principal); R11.10 Vomiting, unspecified
CPT/HCPCS: 36415; 74177; 80053; 83735; 85025; 87493; 87631; 94761; 96374; 96375; 99283; 99284; 99285; J0780; J2270; J2765; J7120; Q9967

== ENCOUNTER 2024-03-07 13:25 | Emergency (ER) | payer BC, MEDICARE, MEDICAID, SELFPAY ==
[2024-03-07 13:38] VITALS: BP 121/79; PULSE 88; RESP 20; TEMP 36.6; O2SAT 95
--- NOTE | 2024-03-07 13:48 | ED_ITS ---
HPI - General Adult General Chief complaint: Nausea/Vomiting Stated complaint: vomiting Time Seen by Provider: 03/07/24 13:28 History of Present Illness HPI narrative: This 23-year-old female transitioned to male comes in reporting nausea and vomiting after taking doxycycline. He states that he was in urgent care yesterday and was diagnosed with pneumonia and given a prescription for doxycycline. He tells me that there was no x-ray done. He also states that he does have a history of some asthma symptoms but these are not significant now. His primary complaint is episodes of vomiting. He does arrive here with normal vital signs. Related Data Home Medications ?Medication ?Instructions ?Recorded ?Confirmed aripiprazole 5 mg tablet 5 mg PO DAILY 04/02/22 03/06/24 montelukast 10 mg tablet 10 mg PO DAILY 04/02/22 03/06/24 sertraline 100 mg tablet 100 mg PO DAILY 04/02/22 03/06/24 sertraline 25 mg tablet 50 mg PO DAILY 04/02/22 03/06/24 testosterone enanthate 200 mg/mL 50 mg subcut Q7D 04/02/22 03/06/24 intramuscular oil trazodone 150 mg tablet 150 mg PO HS 04/02/22 03/06/24 fluticasone propionate 50 1 spray intranasal DAILY PRN 06/15/22 03/06/24 mcg/actuation nasal spray,suspension famotidine 40 mg tablet 40 mg PO DAILY 08/22/22 03/06/24 budesonide-formoterol HFA 160 2 inh inhalation Q12H 06/02/23 03/06/24 mcg-4.5 mcg/actuation aerosol inhaler (Symbicort) dextroamphetamine-amphetamine ER 5 10 mg PO BID 06/02/23 03/06/24 mg 24hr capsule,extend release hydroxyzine HCl 10 mg tablet 10 mg PO 3XD 06/02/23 03/06/24 benralizumab 30 mg/mL subcutaneous mg subcut 02/09/24 03/06/24 auto-injector (Fasenra Pen) Previous Rx's ?Medication ?Instructions ?Recorded ipratropium 0.5 mg-albuterol 3 mg 3 ml inhalation Q6H PRN #90 mL 06/09/22 (2.5 mg base)/3 mL nebulization soln albuterol sulfate 90 mcg/actuation 2 puff inhalation Q4-6H PRN 09/08/23 aerosol inhaler shortness of breath or wheezing #8.5 grams ipratropium 20 mcg-albuterol 100 1 puff inhalation Q6H #4 grams 09/08/23 mcg/actuation mist for inhalation (Combivent Respimat) prochlorperazine maleate 10 mg 10 mg PO TID PRN #14 tabs 11/15/23 tablet (Compazine) doxycycline hyclate 100 mg capsule 100 mg PO BID 7 days #14 caps 03/06/24 prochlorperazine maleate 5 mg 5 mg PO TID PRN #14 tabs 03/07/24 tablet (Compazine) Allergies Allergy/AdvReac Type Severity Reaction Status Date / Time ondansetron [From Zofran] AdvReac Mild Vomiting Verified 03/06/24 10:16 Review of Systems Status of ROS: Reports: 10 or more systems reviewed and unremarkable except as noted in History and below Narrative: Constitutional: No fevers, no weight gain or loss. Eyes: No discharge. No vision changes. HENT: No congestion, no sore throat, no ear pain. Cardiovascular: No chest pain, no palpitations. Respiratory: No shortness of breath, no cough. Gastrointestinal: No abdominal pain, no diarrhea. He reports vomiting as described above. Genitourinary: No dysuria, no hematuria. Musculoskeletal: Normal range of motion. Skin: No rashes, no pruritis. Neurological: No dizziness, weakness, sensory change, speech change. Endo/Heme/Allergies: No bruising or bleeding. No polydipsia. Pysch: no suicidality, no anxiety, no insomnia. All other systems reviewed and are negative. [facility] Medical History Suicidal ideation (10/04/15) ?R45.851 - Suicidal ideations (ICD-10) 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) ?F06.30 - Mood disorder due to known physiological condition, unspecified (ICD-10) ?S06.9XAS - Unspecified intracranial injury with loss of consciousness status unknown, sequela (ICD-10) Colitis due to Clostridium difficile ?A04.72 - Enterocolitis due to Clostridium difficile, not specified as recurrent (ICD-10) ADHD ?F90.9 - Attention-deficit hyperactivity disorder, unspecified type (ICD-10) Depression ?F32.A - Depression, unspecified (ICD-10) Anxiety ?F41.9 - Anxiety disorder, unspecified (ICD-10) Breast removal, prophylactic ?Z40.01 - Encounter for prophylactic removal of breast (ICD-10) Traumatic brain injury ?S06.9XAA - Unspecified intracranial injury with loss of consciousness status unknown, initial encounter (ICD-10) Surgical History S/P mastectomy, bilateral ?Z90.13 - Acquired absence of bilateral breasts and nipples (ICD-10) [place] teeth removed ?K08.409 - Partial loss of teeth, unspecified cause, unspecified class (ICD- 10) Social History Highest level of school completed/degree received: high school graduate Smoking Status: Never smoker Do you use any of these nicotine containing products: E-Cigarettes and Vaping Products Nicotine containing products detail: Frequently Vapes Second hand tobacco smoke exposure: No How often do you have a drink containing alcohol: monthly or less How many standard drinks containing alcohol do you have on a typical day: 1 or 2 How often do you have six or more drinks on one occasion: Never AUDIT-C Alcohol total score: 1 Non-prescribed substance use: marijuana (any form) Non-prescribed substance use details: medical marijuana card Caffeine: No (Rarely) Do you think of yourself as: straight/heterosexual Gender Identity: male service: No Exam Narrative: Exam Narrative: Constitutional: Well-developed, well-nourished, no acute distress. HEENT: Normocephalic, atraumatic. Neck: Normal range of motion. Nontender. Supple. Heart: Regular. No murmurs. Normal rate. Intact distal pulses. Lungs: No chest discomfort. No rhonchi, or rales. There is very faint and expiratory wheezes bilaterally. Abdomen: Normal bowel sounds. Nontender. No rebound tenderness. Genitalia: Deferred. Back: No midline tenderness. Normal range of motion. Extremities: Normal range of motion. No injury. Skin: Intact. No rash. Warm. No erythema or pallor. Neurologic: No altered sensation. No weakness. Alert and oriented. Psychiatric: No suicidality. No anxiety or depression. No insomnia. Nursing notes and vitals signs are reviewed. Const: Vital Signs, click to edit/add: Vital Signs - 24 hr 03/07/24 13:38 Temperature 97.9 F Pulse Rate [Pulse Oximeter] 88 Respiratory Rate 20 Blood Pressure [Ri ght Upper Arm] 121/79 Pulse Oximetry 95 Oxygen Delivery Me thod Room Air Course Vital Signs Vital signs: Initial Vital Signs Temperature 97.9 F 03/07/24 13:38 Temperature Source Temporal Artery Scan 03/07/24 13:38 Pulse Rate 88 03/07/24 13:38 Respiratory Rate 20 03/07/24 13:38 Blood Pressure 121/79 03/07/24 13:38 Blood Pressure Mean 93 03/07/24 13:38 Pulse Oximetry 95 03/07/24 13:38 Oxygen Delivery Method Room Air 03/07/24 13:38 Vital Signs Temperature 97.9 F 03/07/24 13:38 Pulse Rate 88 03/07/24 13:38 Respiratory Rate 20 03/07/24 13:38 Blood Pressure 121/79 03/07/24 13:38 Pulse Oximetry 95 03/07/24 13:38 Oxygen Delivery Method Room Air 03/07/24 13:38 Temperature 97.9 F 03/07/24 13:38 Pulse Rate 88 03/07/24 13:38 Respiratory Rate 20 03/07/24 13:38 Blood Pressure 121/79 03/07/24 13:38 Pulse Oximetry 95 03/07/24 13:38 Oxygen Delivery Method Room Air 03/07/24 13:38 Medical Decision Making MDM Narrative Medical decision making narrative: This patient comes in reporting vomiting episodes after starting doxycycline to treat what was called a pneumonia. There was no x-ray done or report of any other findings or symptoms that are suspicious for pneumonia. Today his exam is quite normal except for very faint wheezes and expiratory bilaterally. He is not showing any signs of respiratory distress and arrives with normal vital signs. I stated that the medicine is likely causing more adverse effects than benefit. I encouraged her to discontinue this medicine and also provided a prescription for Compazine. Discharge Plan Discharge Clinical Impression: Vomiting Patient Disposition: Home, Self-Care Condition: Stable Additional Instructions: Discontinue doxycycline. Use Compazine as needed and directed for nausea and vomiting. Follow up with MD or return if worsening. At Prescriptions: New prochlorperazine maleate [Compazine] 5 mg tablet 5 mg PO TID PRNQty: 14 0RF No Action dextroamphetamine-amphetamine 5 mg capsule,extended release 24hr 10 mg PO BID hydroxyzine HCl 10 mg tablet 10 mg PO 3XD budesonide-formoterol [Symbicort] 160-4.5 mcg/actuation HFA aerosol inhaler 2 inh inhalation Q12H Fasenra Pen 30 mg/mL auto-injector subcut albuterol sulfate 90 mcg/actuation HFA aerosol inhaler 2 puff inhalation Q4-6H PRN (Reason: shortness of breath or wheezing) Qty: 8.5 3RF Combivent Respimat 20-100 mcg/actuation mist 1 puff inhalation Q6H Qty: 4 0RF doxycycline hyclate 100 mg capsule 100 mg PO BID 7 Days Qty: 14 0RF sertraline 100 mg tablet 100 mg PO DAILY Patient Comments: TOTAL DOSE = 125 MG DAILY trazodone 150 mg tablet 150 mg PO HS Patient Comments: TAKE 1 TABLET BY MOUTH EVERYDAY AT BEDTIME sertraline 25 mg tablet 50 mg PO DAILY Patient Comments: TOTAL DOSE = 125 MG DAILY montelukast 10 mg tablet 10 mg PO DAILY testosterone enanthate 200 mg/mL oil 50 mg subcut Q7D Rx Instructions: FRIDAYS aripiprazole 5 mg tablet 5 mg PO DAILY Patient Comments: TAKE 1 TABLET BY MOUTH EVERY DAY ipratropium-albuterol 0.5 mg-3 mg(2.5 mg base)/3 mL solution for nebulization 3 ml inhalation Q6H PRNQty: 90 1RF famotidine 40 mg tablet 40 mg PO DAILY Patient Comments: TAKE 1 TABLET BY MOUTH EVERY DAY prochlorperazine maleate [Compazine] 10 mg tablet 10 mg PO TID PRNQty: 14 0RF fluticasone propionate 50 mcg/actuation spray,suspension 1 spray INTRANASAL DAILY PRN Follow Up/Referrals: Shanthi Delgadillo MD [Primary Care Provider] - Stand Alone Forms: [facility] Info Instructions
--- OUTSIDE RECORDS SUMMARY | 2024-03-07 14:01 | XMS_ITS | Clinical Summary ---
Author Organization [facility] Address [address] [address] Phone Care Team Providers Care Weekend Anchor Name Role Phone Elsewhere, Pcp Primary Care Provider Unavailabl e Allergies No known active allergies Medications Medication Sig Dispensed Refills Start Date End Date Status gabapentin (NEURONTIN) 100 MG capsuleIndications:Agg ressive Behavior,Agitation Take 1 Cap by mouth two times a day. Indications: Aggressive Behavior, Agitation 10/07/2015 Active traZODone (DESYREL) 50 MG tabletIndications:Inso [...] Comments Blood Pressure 92/53 10/07/2015 7:15 PM BIODIESEL ENGINEERING MANAGER Pulse 77 10/07/2015 7:15 PM BIODIESEL ENGINEERING MANAGER Temperature 36.6 ??C (97.9 ??F) 10/07/2015 7:15 PM CS T Respiratory Rate 16 10/07/2015 9:00 PM BIODIESEL ENGINEERING MANAGER Oxygen Saturation 100% 10/06/2015 8:58 AM BIODIESEL ENGINEERING MANAGER Inhaled Oxygen Concentration - - Weight 49.7 kg (109 lb 9.1 oz) 10/03/2015 2:19 P M BIODIESEL ENGINEERING MANAGER Height 165.4 cm (5' 5.12) 10/03/2015 2:19 PM CS T Body Mass Index 18.17 10/03/2015 2:19 PM BIODIESEL ENGINEERING MANAGER Plan of Treatment Health Maintenance Due Date Last Done Comments Cervical Cancer Screening 2000 Last pap w/ HPV Testing 2000 Last pap w/o HPV Testing 2000 HPV Vaccine (Standing Order) (1 - 3-dose series) 2015 Chlamydia Screening 2016 Hepatitis B Vaccine (Standin g Order) (1 of 3 - 19+ 3-dose series) 2019 PERTUSSIS (Standing Order) 2019 TETANUS (Standing Order) 2019 Influenza Vaccine Seasonal (Standing Order) (Season Ended) 2024 Pneumococcal/PCV20 Vaccine: Pediatrics (2-5 yrs) and At-Risk Patients (6-64 yrs) (Standing Order) Aged Out No longer eligible b ased on patient's age to complete this topic Care Teams Weekend Anchor Relationship Specialty Start Date End Date Elsewhere, Pcp PCP - General 10/03/15
[2024-03-07] MEDS: PROCHLORPERAZINE 10 MG TABLET 5 MG PO (14:14)
== END 2024-03-07 14:27 | disposition home or self-care (01) ==
LOC: ED 13:59
PROVIDERS: Emergency Provider Emergency Medicine Emergency Medical Services; PCP Family Medicine
DX: R11.10 Vomiting, unspecified (principal); T36.4X5A Adverse effect of tetracyclines, initial encounter
CPT/HCPCS: 99283; 99284; A9270

== ENCOUNTER 2024-03-10 22:37 | Emergency (ER) | payer BC, MEDICARE, MEDICAID, SELFPAY ==
[2024-03-10 22:41] VITALS: BP 118/79; PULSE 89; RESP 20; TEMP 36.6; O2SAT 93
--- NOTE | 2024-03-10 22:56 | CRLHL7_ITS ---
For Patients: As a result of the Cures Act, medical imaging exams and procedure reports are released immediately into your electronic medical record. You may view this report before your referring provider. If you have questions, please contact your health care provider. INDICATION: Possible seizure, previous TBI. COMPARISON: None. TECHNIQUE: CT of the head without IV contrast. Coronal and sagittal reconstructions. FINDINGS: No intracranial hemorrhage, mass effect, or evidence of acute infarct. No midline shift. No abnormal extra-axial fluid collections. Normal caliber ventricular system. Orbits and extraocular muscles are symmetric. The paranasal sinuses and mastoid air cells are clear. Soft tissues are unremarkable. No acute fracture identified. IMPRESSION: No acute intracranial findings. Please note that all CT scans at this facility use dose modulation, iterative reconstruction, and/or weight-based dosing when appropriate to reduce radiation dose to as low as reasonably achievable. Dictated by Deena Ramirez MD @ 03/11/2024 1:03:41 AM (Electronically Signed)
--- NOTE | 2024-03-10 22:57 | CRLHL7_ITS ---
For Patients: As a result of the Century Cures Act, medical imaging exams and procedure reports are released immediately into your electronic medical record. You may view this report before your referring provider. If you have questions, please contact your health care provider. INDICATION: Dyspnea. TECHNIQUE: Chest radiographs, 2 views. COMPARISON: Chest radiographs 10/26/2023. FINDINGS: Cardiovascular/Mediastinum: Normal heart size. Unremarkable. Lungs: No focal consolidation. Airways: Trachea remains midline. Pleura: No pleural effusions or pneumothorax. Bones: No acute osseous abnormalities. Upper abdomen: Unremarkable. IMPRESSION: No acute cardiopulmonary process. Stable examination. Dictated by Shant Pacheco MD @ 03/11/2024 1:01:20 AM (Electronically Signed)
--- NOTE | 2024-03-10 22:57 | ED.GENADULT ---
HPI - General Adult General Date Seen: 03/10/24 Chief complaint: Asthma Stated complaint: Asthma attack and seizure Time Seen by Provider: 03/10/24 22:40 Source: patient Mode of arrival: ambulatory Limitations: no limitations History of Present Illness HPI narrative: Socrates is a 23-year-old transgender male presenting to the emergency department for shortness of breath and possible seizure. He has a history of TBI and medical marijuana use. DI her been several years ago and has since had memory issues but no other long-term sequela. His with his friend who states he had a 45 second episode where his eyes rolled to his back, he was not responding and his whole body became stiff. She states that looks like previous seizures she has seen an other people. Patient denies any previous seizures. States he has been feeling short of breath for the past 4 or 5 days. Denies using marijuana over the past few days but the room does smell strongly of marijuana. Was here 3 days ago for nausea after being started on doxycycline for possible pneumonia. Has stopped the doxycycline is now on Compazine which has helped his nausea. Denies fevers, chills, abdominal pain, headache, vision changes. Does have some mild chest tightness. States he has been using his home inhalers with some improvement. Related Data Home Medications ?Medication ?Instructions ?Recorded ?Confirmed aripiprazole 5 mg tablet 5 mg PO DAILY 04/02/22 03/06/24 montelukast 10 mg tablet 10 mg PO DAILY 04/02/22 03/06/24 sertraline 100 mg tablet 100 mg PO DAILY 04/02/22 03/06/24 sertraline 25 mg tablet 50 mg PO DAILY 04/02/22 03/06/24 testosterone enanthate 200 mg/mL 50 mg subcut Q7D 04/02/22 03/06/24 intramuscular oil trazodone 150 mg tablet 150 mg PO HS 04/02/22 03/06/24 fluticasone propionate 50 1 spray intranasal DAILY PRN 06/15/22 03/06/24 mcg/actuation nasal spray,suspension famotidine 40 mg tablet 40 mg PO DAILY 08/22/22 03/06/24 budesonide-formoterol HFA 160 2 inh inhalation Q12H 06/02/23 03/06/24 mcg-4.5 mcg/actuation aerosol inhaler (Symbicort) dextroamphetamine-amphetamine ER 5 10 mg PO BID 06/02/23 03/06/24 mg 24hr capsule,extend release hydroxyzine HCl 10 mg tablet 10 mg PO 3XD 06/02/23 03/06/24 benralizumab 30 mg/mL subcutaneous mg subcut 02/09/24 03/06/24 auto-injector (Fasenra Pen) Previous Rx's ?Medication ?Instructions ?Recorded ipratropium 0.5 mg-albuterol 3 mg 3 ml inhalation Q6H PRN #90 mL 06/09/22 (2.5 mg base)/3 mL nebulization soln albuterol sulfate 90 mcg/actuation 2 puff inhalation Q4-6H PRN 09/08/23 aerosol inhaler shortness of breath or wheezing #8.5 grams ipratropium 20 mcg-albuterol 100 1 puff inhalation Q6H #4 grams 09/08/23 mcg/actuation mist for inhalation (Combivent Respimat) prochlorperazine maleate 10 mg 10 mg PO TID PRN #14 tabs 11/15/23 tablet (Compazine) doxycycline hyclate 100 mg capsule 100 mg PO BID 7 days #14 caps 03/06/24 prochlorperazine maleate 5 mg 5 mg PO TID PRN #14 tabs 03/07/24 tablet (Compazine) Allergies Allergy/AdvReac Type Severity Reaction Status Date / Time ondansetron [From Zofran] AdvReac Mild Vomiting Verified 03/06/24 10:16 Review of Systems Status of ROS: Reports: 10 or more systems reviewed and unremarkable except as noted in History and below [facility] Medical History Suicidal ideation (10/04/15) ?R45.851 - Suicidal ideations (ICD-10) 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) ?F06.30 - Mood disorder due to known physiological condition, unspecified (ICD-10) ?S06.9XAS - Unspecified intracranial injury with loss of consciousness status unknown, sequela (ICD-10) Colitis due to Clostridium difficile ?A04.72 - Enterocolitis due to Clostridium difficile, not specified as recurrent (ICD-10) ADHD ?F90.9 - Attention-deficit hyperactivity disorder, unspecified type (ICD-10) Depression ?F32.A - Depression, unspecified (ICD-10) Anxiety ?F41.9 - Anxiety disorder, unspecified (ICD-10) Breast removal, prophylactic ?Z40.01 - Encounter for prophylactic removal of breast (ICD-10) Traumatic brain injury ?S06.9XAA - Unspecified intracranial injury with loss of consciousness status unknown, initial encounter (ICD-10) Surgical History S/P mastectomy, bilateral ?Z90.13 - Acquired absence of bilateral breasts and nipples (ICD-10) [place] teeth removed ?K08.409 - Partial loss of teeth, unspecified cause, unspecified class (ICD-10) Social History Highest level of school completed/degree received: high school graduate Smoking Status: Former smoker Do you use any of these nicotine containing products: E-Cigarettes and Vaping Products Nicotine containing products detail: Frequently Vapes Second hand tobacco smoke exposure: No How often do you have a drink containing alcohol: monthly or less How many standard drinks containing alcohol do you have on a typical day: 1 or 2 How often do you have six or more drinks on one occasion: Never AUDIT-C Alcohol total score: 1 Non-prescribed substance use: marijuana (any form) Non-prescribed substance use details: medical marijuana card Caffeine: No (Rarely) Do you think of yourself as: straight/heterosexual Gender Identity: male service: No Exam Narrative: Exam Narrative: Const: Well-nourished, Well-developed, in mild distress Eyes: PERRL, no conjunctival injection, and symmetrical lids HENT: Atraumatic external nose and ears. Moist mucous membranes. Neck: Symmetric, trachea midline, No thyromegaly. CVS: RRR, No murmurs or gallops. Peripheral pulses 2+ and equal in all extremities RESP: Mildly increased respiratory effort with diffuse mild wheezing GI: Nontender/Nondistended, No rebound or guarding. MSK:Extremities w/o deformity, Normal Active ROM Skin: Warm, Dry. No rashes or lesions. Neuro: Normal Muscle tone, No focal neurological deficits. Psych: Awake, Alert, & Oriented x3. Appropriate mood and affect. Const: Vital Signs, click to edit/add: Vital Signs - 24 hr 03/10/24 22:41 Temperature 97.8 F Pulse Rate [Left] 89 Respiratory Rate 20 Blood Pressure [Ri ght Upper Arm] 118/79 Pulse Oximetry 93 Oxygen Delivery Me thod Room Air Course Vital Signs Vital signs: Initial Vital Signs Temperature 97.8 F 03/10/24 22:41 Temperature Source Temporal Artery Scan 03/10/24 22:41 Pulse Rate 89 03/10/24 22:41 Pulse Rhythm Regular 03/10/24 22:41 Respiratory Rate 20 03/10/24 22:41 Blood Pressure 118/79 03/10/24 22:41 Blood Pressure Mean 92 03/10/24 22:41 Blood Pressure Position Sitting 03/10/24 22:41 Pulse Oximetry 93 03/10/24 22:41 Oxygen Delivery Method Room Air 03/10/24 22:41 Vital Signs Temperature 97.8 F 03/10/24 22:41 Pulse Rate 89 03/10/24 22:41 Respiratory Rate 20 03/10/24 22:41 Blood Pressure 118/79 03/10/24 22:41 Pulse Oximetry 93 03/10/24 22:41 Oxygen Delivery Method Room Air 03/10/24 22:41 Temperature 97.8 F 03/10/24 22:41 Pulse Rate 89 03/10/24 22:41 Respiratory Rate 20 03/10/24 22:41 Blood Pressure 118/79 03/10/24 22:41 Pulse Oximetry 93 03/10/24 22:41 Oxygen Delivery Method Room Air 03/10/24 22:41 Medications Administered Medications: Discontinued Medications Generic Name Dose Route Start Last Admin Trade Name Freq PRN Reason Stop Dose Admin Albuterol 2.5 mg 03/10/24 22:56 03/10/24 23:10 Albuterol Sulfate 2.5 Mg/3 Ml Vial.Neb NEB 03/10/24 22:57 2.5 mg ONCE ONE Administration Albuterol 2.5 mg 03/10/24 23:58 03/11/24 00:18 Albuterol Sulfate 2.5 Mg/3 Ml Vial.Neb NEB 03/10/24 23:59 2.5 mg ONCE ONE Administration Medical Decision Making MDM Narrative Medical decision making narrative: Patient is a 23-year-old transgender male presenting to the emergency department for asthma exacerbation and possible seizure. This possible seizures witnessed by his friend. Which did describes sound like a seizure but will do a lactate to see if this is elevated as get help with diagnosis. Will also order head CT. For shortness of breath I will do a chest x-ray to look for signs pneumonia as there has been on certainly if he does or does not have pneumonia and no x-rays have been done yet. Was do albuterol treatment in order up BMP, CBC, EKG, troponin Is feeling better after the 1st albuterol treatment in a another 1 was ordered. EKG shows no concerning abnormalities. Lab work shows no concerning abnormalities. He is otherwise doing well. Troponin within normal limits. Is feeling well enough to go home at this time. Chest x-ray reviewed myself and the radiologist showed no acute abnormalities. No signs pneumonia. CT scan of the head showed no concerning abnormalities. Concerned this is his 1st seizure I do not believe is necessary to speak to Neurology at this time. I informed him of the restrictions that come with seizures and to follow-up outpatient. He is agreeable at this time. Lab Data Labs: Lab Results 03/10/24 Range/Units 23:14 WBC 8.29 (4.50-11.00) K/uL RBC 5.80 H (4.00-5.20) m/uL Hgb 16.6 H (12.0-16.0) gm/dL Hct 48.9 (33.0-51.0) % MCV 84 (80-100) fL MCH 29 (26-34) pg MCHC 34 (32-36) gm/dL RDW Coeff of Adriano 12.0 (11.5-15.5) % Plt Count 258 (140-440) K/uL Neut % (Auto) 49.9 (42.0-72.0) % Lymph % (Auto) 37.3 (20-44) % [place] % (Auto) 11.5 H (0.0-11.0) % Eos % (Auto) 0.0 (0.0-7.0) % Baso % (Auto) 0.2 (0.0-3.0) % Neut # (Auto) 4.14 (1.7-7.0) K/uL Lymph # (Auto) 3.09 H (0.90-2.90) K/uL [place] # (Auto) 1.00 H (0.00-0.90) K/UL Eos # (Auto) 0.00 (0.00-0.50) K/uL Baso # (Auto) 0.02 (0.00-0.30) K/uL Abs Immat Gran (auto) 0.09 (0.00-0.30) K/uL Imm/Tot Granulo (auto) 1.1 % Sodium 139 (135-149) mmol/L Potassium 3.9 (3.6-5.1) mmol/L Chloride 106 (96-114) mmol/L Carbon Dioxide 25 (20-32) mmol/L Anion Gap 8 (7-15) mEq/L BUN 9 (5-24) mg/dL Creatinine 0.9 (0.5-1.5) mg/dL Estimated Creat Clear 87.48 Estimated GFR 92 ml/min Glucose 93 (60-115) mg/dL Lactate 0.8 (0.5-1.9) mmol/L Calcium 8.9 (8.4-10.6) mg/dL Troponin I < 0.01 L (0.01-0.04) ng/mL Imaging Data Chest x-ray: Attestation: I have reviewed the pertinent imaging results. Radiologist's impression: No acute cardiopulmonary process. Stable examination. Dictated by Shant Pacheco MD @ 03/11/2024 1:01:[address] scan - head: Radiologist's impression: No acute intracranial findings. Please note that all CT scans at this facility use dose modulation, iterative reconstruction, and/or weight-based dosing when appropriate to reduce radiation dose to as low as reasonably achievable. Dictated by Deena Ramirez MD @ 03/11/2024 1:03:41 AM ECG Data Attestation: I personally reviewed and interpreted this ECG as follows: Prior ECG tracings: available for review Interpretation: The normal sinus rhythm with rate of 80 beats per minute, normal intervals, normal axis, no ST or T-wave abnormalities. Looks similar previous EKG on file Discharge Plan Discharge Clinical Impression: Asthma, Seizure Patient Disposition: Home, Self-Care Condition: Stable Instructions: Asthma (DC), New-Onset Seizure in Adults (ED), Seizures After Traumatic Brain Injury (ED) Additional Instructions: If you do believe he had a seizure it is important to follow-up with your primary care provider and Neurology. You must be seizure free for 6 months before be able to drive a vehicle. You chest x-ray showed no signs of pneumonia. Return to emergency department for new or worsening symptoms. I recommend abstaining from marijuana use at this time. Prescriptions: No Action dextroamphetamine-amphetamine 5 mg capsule,extended release 24hr 10 mg PO BID hydroxyzine HCl 10 mg tablet 10 mg PO 3XD budesonide-formoterol [Symbicort] 160-4.5 mcg/actuation HFA aerosol inhaler 2 inh inhalation Q12H Fasenra Pen 30 mg/mL auto-injector subcut albuterol sulfate 90 mcg/actuation HFA aerosol inhaler 2 puff inhalation Q4-6H PRN (Reason: shortness of breath or wheezing) Qty: 8.5 3RF Combivent Respimat 20-100 mcg/actuation mist 1 puff inhalation Q6H Qty: 4 0RF doxycycline hyclate 100 mg capsule 100 mg PO BID 7 Days Qty: 14 0RF sertraline 100 mg tablet 100 mg PO DAILY Patient Comments: TOTAL DOSE = 125 MG DAILY trazodone 150 mg tablet 150 mg PO HS Patient Comments: TAKE 1 TABLET BY MOUTH EVERYDAY AT BEDTIME sertraline 25 mg tablet 50 mg PO DAILY Patient Comments: TOTAL DOSE = 125 MG DAILY montelukast 10 mg tablet 10 mg PO DAILY testosterone enanthate 200 mg/mL oil 50 mg subcut Q7D Rx Instructions: FRIDAYS aripiprazole 5 mg tablet 5 mg PO DAILY Patient Comments: TAKE 1 TABLET BY MOUTH EVERY DAY ipratropium-albuterol 0.5 mg-3 mg(2.5 mg base)/3 mL solution for nebulization 3 ml inhalation Q6H PRNQty: 90 1RF famotidine 40 mg tablet 40 mg PO DAILY Patient Comments: TAKE 1 TABLET BY MOUTH EVERY DAY prochlorperazine maleate [Compazine] 10 mg tablet 10 mg PO TID PRNQty: 14 0RF prochlorperazine maleate [Compazine] 5 mg tablet 5 mg PO TID PRNQty: 14 0RF fluticasone propionate 50 mcg/actuation spray,suspension 1 spray INTRANASAL DAILY PRN Follow Up/Referrals: Shanthi Delgadillo MD [Primary Care Provider] - Stand Alone Forms: [employer] Info Instructions
--- OUTSIDE RECORDS SUMMARY | 2024-03-10 23:05 | XMS_ITS | Clinical Summary ---
Author Organization [facility] Address [address] [address] Phone Care Team Providers Care Metal Machinist Name Role Phone Elsewhere, Pcp Primary Care [...] Comments Blood Pressure 92/53 10/07/2015 7:15 PM ROOFER GYPSUM Pulse 77 10/07/2015 7:15 PM ROOFER GYPSUM Temperature 36.6 ??C (97.9 ??F) 10/07/2015 7:15 PM CS T Respiratory Rate 16 10/07/2015 9:00 PM ROOFER GYPSUM Oxygen Saturation 100% 10/06/2015 8:58 AM ROOFER GYPSUM Inhaled Oxygen Concentration - - Weight 49.7 kg (109 lb 9.1 oz) 10/03/2015 2:19 P M ROOFER GYPSUM Height 165.4 cm (5' 5.12) 10/03/2015 2:19 PM CS T Body Mass Index 18.17 10/03/2015 2:19 PM ROOFER GYPSUM Plan of Treatment Health Maintenance Due Date [...] age to complete this topic Care Teams Metal Machinist Relationship Specialty Start Date End Date Elsewhere, Pcp PCP - General 10/03/15
[2024-03-10] MEDS: ALBUTEROL SULFATE 2.5 MG/3 ML VIAL.NEB NEB (23:10)
[2024-03-10 23:20] LABS: Lactate* 0.8 mmol/L (0.5-1.9)
[2024-03-10 23:32] LABS: Basophils Absolute Auto 0.02 K/uL (0.00-0.30); Basophils Percent Auto 0.2 % (0.0-3.0); Hematocrit 48.9 % (33.0-51.0); Hemoglobin* 16.6 gm/dL (12.0-16.0); Immature Granulocytes Abs Auto 0.09 K/uL (0.00-0.30); Immature Granulocytes Pct Auto 1.1 %; Lymphocytes Absolute Auto 3.09 K/uL (0.90-2.90); Lymphocytes Percent Auto 37.3 % (20-44); Mean Corpuscular HGB Conc 34 gm/dL (32-36); Mean Corpuscular Hemoglobin 29 pg (26-34); Mean Corpuscular Volume 84 fL (80-100); Monocytes Percent Auto 11.5 % (0.0-11.0); Neutrophils Absolute Auto 4.14 K/uL (1.7-7.0); Neutrophils Percent Auto 49.9 % (42.0-72.0); Platelet Count* 258 K/uL (140-440); White Blood Count* 8.29 K/uL (4.50-11.00)
[2024-03-10 23:42] LABS: Slide Review Reflex No
[2024-03-10 23:44] LABS: Chloride* 106 mmol/L (96-114); Potassium* 3.9 mmol/L (3.6-5.1); Sodium* 139 mmol/L (135-149)
[2024-03-10 23:47] LABS: Anion Gap 8 mEq/L (7-15); Blood Urea Nitrogen* 9 mg/dL (5-24); Calcium* 8.9 mg/dL (8.4-10.6); Carbon Dioxide* 25 mmol/L (20-32); Creatinine* 0.9 mg/dL (0.5-1.5); Est. Creatinine Clearance* 87.48; Estimated Glomerular Filt Rate 92 ml/min; Glucose* 93 mg/dL (60-115)
[2024-03-11] MEDS: ALBUTEROL SULFATE 2.5 MG/3 ML VIAL.NEB NEB (00:18)
[2024-03-11 00:19] LABS: Troponin I* < 0.01 ng/mL (0.01-0.04)
[2024-03-11 01:25] LABS: Amphetamine Screen Urine Negative (Negative); Barbiturate Screen Urine Negative (Negative); Benzodiazepines Screen Urine Negative (Negative); Cannabinoid Screen Urine POSITIVE (Negative); Cocaine Screen Urine Negative (Negative); Methadone Screen Urine Negative (Negative); Methamphetamines Screen Urine Negative (Negative); Opiate Screen Urine Negative (Negative); Oxycodone Screen Urine Negative (Negative); Phencyclidine Screen Urine Negative (Negative); Tricyclic Antidepressant Urine Negative (Negative)
== END 2024-03-11 01:42 | disposition home or self-care (01) ==
PROVIDERS: Emergency Provider Student in an Organized Health Care Education/Training Program; PCP Family Medicine
DX: J45.901 Unspecified asthma with (acute) exacerbation (principal)
CPT/HCPCS: 36415; 70450; 71046; 80048; 80306; 83605; 84484; 85025; 93005; 94640; 99283; 99284; 99285

== ENCOUNTER 2024-08-15 17:44 | Observation (INO) | payer BC, MEDICARE, MEDICAID, SELFPAY ==
[2024-08-15] VITALS (26 sets, daily range): BP systolic 109–137; BP diastolic 61–90; PULSE 104–139; RESP 20–22; TEMP 36.9–37.1; O2SAT 86–100; BMI 29.1
--- NOTE | 2024-08-15 18:06 | CRLHL7_ITS ---
For Patients: As a result of the Century Cures Act, medical imaging exams and procedure reports are released immediately into your electronic medical record. You may view this report before your referring provider. If you have questions, please contact your health care provider. INDICATION: Worsening shortness of breath and cough. TECHNIQUE: Chest 2 views. COMPARISON: July 28, 2024. FINDINGS: Cardiovascular and mediastinum: Heart size and vasculature are normal in caliber and appearance. Lungs and pleural spaces: Lungs are clear. No sign of infiltrate or mass. No sign of pleural effusion. No pneumothorax. Bones and soft tissues: No significant findings. IMPRESSION: No acute findings and no significant changes from the prior exam. Dictated by Benjamin De La Cruz MD @ 08/15/2024 7:23:08 PM (Electronically Signed)
--- NOTE | 2024-08-15 18:12 | ED_ITS ---
HPI - General Adult General Date Seen: 08/15/24 <Brant Vargasram - Last Filed: 08/15/24 20:15> Chief complaint: Shortness of Breath/Dyspnea <Brant Vargasram DO - Last Filed: 08/15/24 20:15> Stated complaint: Vomiting, coughing, aching legs <Brant Borrero DO - Last Filed: 08/15/24 20:15> Time Seen by Provider: 08/15/24 17:57 <Brant Borrero DO - Last Filed: 08/15/24 20:15> Source: patient <Brant Borrero - Last Filed: 08/15/24 20:15> Mode of arrival: ambulatory <Brant Sosa Adair DO - Last Filed: 08/15/24 20:15> Limitations: no limitations <Brantgreyson Borrero DO - Last Filed: 08/15/24 20:15> History of Present Illness HPI narrative: Patient is a 24-year-old female to male transgender patient presenting to the emergency department for shortness of breath, vomiting, leg pain. He has a history of asthma. States for the past couple days he has been having intermittent chills and not feeling well. Not aware of any sick contacts. States his shortness of breath is getting worse today and he has noticed quite a bit of wheezing. Has been using his inhalers and nebulizers at home with some improvement in his symptoms. Still is wheezing quite a bit. Before he came any started having notable lower extremity pain he feels in the calves. Has been having mild cough and has been vomiting. Is not having any abdominal pain. Denies chest pain but is feeling short of breath. Denies lightheadedness, dizziness, headache, vision changes, numbness, weakness, diarrhea, constipation, dysuria. He does vape but did not vape at all today he states. <Brant Borrero DO - Last Filed: 08/15/24 20:15> Related Data Home medications: Home Medications ?Medication ?Instructions ?Recorded ?Confirmed aripiprazole 5 mg tablet 5 mg PO DAILY 04/02/22 07/28/24 montelukast 10 mg tablet 10 mg PO DAILY 04/02/22 07/28/24 testosterone enanthate 200 mg/mL 50 mg subcut Q7D 04/02/22 07/28/24 intramuscular oil fluticasone propionate 50 1 spray intranasal DAILY PRN 06/15/22 07/28/24 mcg/actuation nasal spray,suspension famotidine 40 mg tablet 40 mg PO DAILY 08/22/22 07/28/24 dextroamphetamine-amphetamine ER 5 10 mg PO BID 06/02/23 07/28/24 mg 24hr capsule,extend release hydroxyzine HCl 10 mg tablet 10 mg PO 3XD 06/02/23 07/28/24 benralizumab 30 mg/mL subcutaneous mg subcut 02/09/24 07/28/24 auto-injector (Fasenra Pen) fluticasone furoate 100 1 inh inhalation Q24H 06/23/24 07/28/24 mcg-vilanterol 25 mcg/dose inhalation powder ibuprofen 08/15/24 Previous Rx's ?Medication ?Instructions ?Recorded ipratropium 0.5 mg-albuterol 3 mg 3 ml inhalation Q6H PRN #90 mL 06/09/22 (2.5 mg base)/3 mL nebulization soln albuterol sulfate 90 mcg/actuation 2 puff inhalation Q4-6H PRN 09/08/23 aerosol inhaler shortness of breath or wheezing #8.5 grams ipratropium 20 mcg-albuterol 100 1 puff inhalation Q6H #4 grams 09/08/23 mcg/actuation mist for inhalation (Combivent Respimat) benzonatate 200 mg capsule 200 mg PO BID PRN cough #14 caps 07/28/24 <Brant Borrero DO - Last Filed: 08/15/24 20:15> Allergies/adverse reactions: Allergies Allergy/AdvReac Type Severity Reaction Status Date / Time ondansetron (From Zofran) AdvReac Mild Vomiting Verified 08/15/24 17:52 <Brant Borrero DO - Last Filed: 08/15/24 20:15> Review of Systems Status of ROS: Reports: 10 or more systems reviewed and unremarkable except as noted in History and below <Brant Borrero DO - Last Filed: 08/15/24 20:15> [facility] Medical History: Medical History Suicidal ideation (10/04/15) ?R45.851 - Suicidal ideations (ICD-10) 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) ?F06.30 - Mood disorder due to known physiological condition, unspecified (ICD-10) ?S06.9XAS - Unspecified intracranial injury with loss of consciousness status unknown, sequela (ICD-10) Colitis due to Clostridium difficile ?A04.72 - Enterocolitis due to Clostridium difficile, not specified as recurrent (ICD-10) ADHD ?F90.9 - Attention-deficit hyperactivity disorder, unspecified type (ICD-10) Depression ?F32.A - Depression, unspecified (ICD-10) Anxiety ?F41.9 - Anxiety disorder, unspecified (ICD-10) Breast removal, prophylactic ?Z40.01 - Encounter for prophylactic removal of breast (ICD-10) Traumatic brain injury ?S06.9XAA - Unspecified intracranial injury with loss of consciousness status unknown, initial encounter (ICD-10) <Brant Borrero DO - Last Filed: 08/15/24 20:15> Surgical History: Surgical History S/P mastectomy, bilateral ?Z90.13 - Acquired absence of bilateral breasts and nipples (ICD-10) [place] teeth removed ?K08.409 - Partial loss of teeth, unspecified cause, unspecified class (ICD-1 0) <Brant Borrero DO - Last Filed: 08/15/24 20:15> Social History: Social History Highest level of school completed/degree received: high school graduate Smoking Status: Former smoker Do you use any of these nicotine containing products: E-Cigarettes and Vaping Products Nicotine containing products detail: Frequently Vapes Second hand tobacco smoke exposure: No How often do you have a drink containing alcohol: monthly or less How many standard drinks containing alcohol do you have on a typical day: 1 or 2 How often do you have six or more drinks on one occasion: Never AUDIT-C Alcohol total score: 1 Non-prescribed substance use: marijuana (any form) Non-prescribed substance use details: medical marijuana card Caffeine: No (Rarely) Do you think of yourself as: straight/heterosexual Gender Identity: male service: No <Brant Borrero DO - Last Filed: 08/15/24 20:15> Exam Narrative: Exam Narrative: Const: Well-nourished, Well-developed, in moderate distress Eyes: PERRL, no conjunctival injection, and symmetrical lids HENT: Atraumatic external nose and ears. Moist mucous membranes. Neck: Symmetric, trachea midline, No thyromegaly. CVS: Tachycardia, No murmurs or gallops. Peripheral pulses 2+ and equal in all extremities RESP: Increased respiratory effort with diffuse wheezing GI: Nontender/Nondistended, No rebound or guarding. MSK:Extremities w/o deformity, Normal Active ROM Skin: Warm, Dry. No rashes or lesions. Neuro: Normal Muscle tone, No focal neurological deficits. Psych: Awake, Alert, & Oriented x3. Appropriate mood and affect. <Brant Borrero, - Last Filed: 08/15/24 20:15> Const: Vital Signs, click to edit/add: Vital Signs - 24 hr 08/15/24 17:48 08/15/24 18:37 08/15/24 18:45 Temperature 98.7 F Pulse Rate 117 H 139 H Pulse Rate [Left P ulse Oximeter] 130 H Respiratory Rate 22 Blood Pressure Blood Pressure [Ri ght Upper Arm] 119/79 Pulse Oximetry 95 91 94 Oxygen Delivery Me thod Room Air Oxygen Flow Rate 08/15/24 19:00 08/15/24 19:02 08/15/24 19:15 Temperature Pulse Rate 116 H 106 H 112 H Pulse Rate [Left P ulse Oximeter] Respiratory Rate Blood Pressure 109/61 Blood Pressure [Ri ght Upper Arm] Pulse Oximetry 94 95 93 Oxygen Delivery Me thod Oxygen Flow Rate 08/15/24 19:30 08/15/24 19:31 08/15/24 19:45 Temperature Pulse Rate 104 H 116 H 115 H Pulse Rate [Left P ulse Oximeter] Respiratory Rate Blood Pressure 116/71 Blood Pressure [Ri ght Upper Arm] Pulse Oximetry 100 100 95 Oxygen Delivery Me thod Oxygen Flow Rate 08/15/24 20:00 08/15/24 20:02 08/15/24 20:15 Temperature Pulse Rate 120 H 119 H 120 H Pulse Rate [Left P ulse Oximeter] Respiratory Rate Blood Pressure 128/66 Blood Pressure [Ri ght Upper Arm] Pulse Oximetry 97 96 90 Oxygen Delivery Me thod Oxygen Flow Rate 08/15/24 20:30 08/15/24 20:31 08/15/24 20:45 Temperature Pulse Rate 125 H 123 H 123 H Pulse Rate [Left P ulse Oximeter] Respiratory Rate Blood Pressure 111/70 Blood Pressure [Ri ght Upper Arm] Pulse Oximetry 92 91 90 Oxygen Delivery Me thod Oxygen Flow Rate 08/15/24 20:55 08/15/24 20:58 08/15/24 21:00 Temperature Pulse Rate 121 H Pulse Rate [Left P ulse Oximeter] Respiratory Rate Blood Pressure Blood Pressure [Ri ght Upper Arm] Pulse Oximetry 86 L 92 89 Oxygen Delivery Me thod Room Air Room Air Oxygen Flow Rate 2 08/15/24 21:02 Temperature Pulse Rate 119 H Pulse Rate [Left P ulse Oximeter] Respiratory Rate Blood Pressure 120/63 Blood Pressure [Ri ght Upper Arm] Pulse Oximetry 91 Oxygen Delivery Me thod Nasal Cannula Oxygen Flow Rate 2 <Brant Borrero, DO - Last Filed: 08/15/24 20:15> Vital Signs, click to edit/add: Vital Signs - 24 hr 08/15/24 17:48 08/15/24 18:37 08/15/24 18:45 Temperature 98.7 F Pulse Rate 117 H 139 H Pulse Rate [Left P ulse Oximeter] 130 H Respiratory Rate 22 Blood Pressure Blood Pressure [Ri ght Upper Arm] 119/79 Pulse Oximetry 95 91 94 Oxygen Delivery Me thod Room Air Oxygen Flow Rate 08/15/24 19:00 08/15/24 19:02 08/15/24 19:15 Temperature Pulse Rate 116 H 106 H 112 H Pulse Rate [Left P ulse Oximeter] Respiratory Rate Blood Pressure 109/61 Blood Pressure [Ri ght Upper Arm] Pulse Oximetry 94 95 93 Oxygen Delivery Me thod Oxygen Flow Rate 08/15/24 19:30 08/15/24 19:31 08/15/24 19:45 Temperature Pulse Rate 104 H 116 H 115 H Pulse Rate [Left P ulse Oximeter] Respiratory Rate Blood Pressure 116/71 Blood Pressure [Ri ght Upper Arm] Pulse Oximetry 100 100 95 Oxygen Delivery Me thod Oxygen Flow Rate 08/15/24 20:00 08/15/24 20:02 08/15/24 20:15 Temperature Pulse Rate 120 H 119 H 120 H Pulse Rate [Left P ulse Oximeter] Respiratory Rate Blood Pressure 128/66 Blood Pressure [Ri ght Upper Arm] Pulse Oximetry 97 96 90 Oxygen Delivery Me thod Oxygen Flow Rate 08/15/24 20:30 08/15/24 20:31 08/15/24 20:45 Temperature Pulse Rate 125 H 123 H 123 H Pulse Rate [Left P ulse Oximeter] Respiratory Rate Blood Pressure 111/70 Blood Pressure [Ri ght Upper Arm] Pulse Oximetry 92 91 90 Oxygen Delivery Me thod Oxygen Flow Rate 08/15/24 20:55 08/15/24 20:58 08/15/24 21:00 Temperature Pulse Rate 121 H Pulse Rate [Left P ulse Oximeter] Respiratory Rate Blood Pressure Blood Pressure [Ri ght Upper Arm] Pulse Oximetry 86 L 92 89 Oxygen Delivery Me thod Room Air Room Air Oxygen Flow Rate 2 08/15/24 21:02 Temperature Pulse Rate 119 H Pulse Rate [Left P ulse Oximeter] Respiratory Rate Blood Pressure 120/63 Blood Pressure [Ri ght Upper Arm] Pulse Oximetry 91 Oxygen Delivery Me thod Nasal Cannula Oxygen Flow Rate 2 <Korey Canales MD - Last Filed: 08/15/24 21:11> Course Reevaluation(s) Reevaluation #1: Patient handed over to me at sign-out. He remains tachycardic although his cough is much better. He is on 2 L of oxygen and at this time I believe the best course of action is to admitted for further evaluation or treatment. He has been treated with IV magnesium as well as prednisone. <Korey Canales MD - Last Filed: 08/15/24 21:11> Vital Signs Vital signs: Initial Vital Signs Temperature 98.7 F 08/15/24 17:48 Temperature Source Temporal Artery Scan 08/15/24 17:48 Pulse Rate 130 H 08/15/24 17:48 Respiratory Rate 22 08/15/24 17:48 Blood Pressure 119/79 08/15/24 17:48 Blood Pressure Mean 92 08/15/24 17:48 Blood Pressure Position Sitting 08/15/24 17:48 Pulse Oximetry 95 08/15/24 17:48 Oxygen Delivery Method Room Air 08/15/24 17:48 Vital Signs Temperature 98.7 F 08/15/24 17:48 Pulse Rate 130 H 08/15/24 17:48 Respiratory Rate 22 08/15/24 17:48 Blood Pressure 119/79 08/15/24 17:48 Pulse Oximetry 95 08/15/24 17:48 Oxygen Delivery Method Room Air 08/15/24 17:48 Temperature 98.7 F 08/15/24 17:48 Pulse Rate 119 H 08/15/24 21:02 Respiratory Rate 22 08/15/24 17:48 Blood Pressure 120/63 08/15/24 21:02 Pulse Oximetry 91 08/15/24 21:02 Oxygen Delivery Method Nasal Cannula 08/15/24 21:02 Oxygen Flow Rate 2 08/15/24 21:02 <Brant Borrero DO - Last Filed: 08/15/24 20:15> Initial Vital Signs Temperature 98.7 F 08/15/24 17:48 Temperature Source Temporal Artery Scan 08/15/24 17:48 Pulse Rate 130 H 08/15/24 17:48 Respiratory Rate 22 08/15/24 17:48 Blood Pressure 119/79 08/15/24 17:48 Blood Pressure Mean 92 08/15/24 17:48 Blood Pressure Position Sitting 08/15/24 17:48 Pulse Oximetry 95 08/15/24 17:48 Oxygen Delivery Method Room Air 08/15/24 17:48 Vital Signs Temperature 98.7 F 08/15/24 17:48 Pulse Rate 130 H 08/15/24 17:48 Respiratory Rate 22 08/15/24 17:48 Blood Pressure 119/79 08/15/24 17:48 Pulse Oximetry 95 08/15/24 17:48 Oxygen Delivery Method Room Air 08/15/24 17:48 Temperature 98.7 F 08/15/24 17:48 Pulse Rate 119 H 08/15/24 21:02 Respiratory Rate 22 08/15/24 17:48 Blood Pressure 120/63 08/15/24 21:02 Pulse Oximetry 91 08/15/24 21:02 Oxygen Delivery Method Nasal Cannula 08/15/24 21:02 Oxygen Flow Rate 2 08/15/24 21:02 <Korey Canales MD - Last Filed: 08/15/24 21:11> Medications Administered Medications: Generic Name Dose Route Start Last Admin Trade Name Freq PRN Reason Stop Dose Admin Sodium Chloride 1,000 mls @ 1,000 mls/hr 08/15/24 20:30 08/15/24 20:24 0.9 % Sodium Chloride 1000 Ml IV 08/15/24 21:29 1,000 mls/hr .Q1H DIMITRIS Administration Ondansetron HCl 4 mg 08/15/24 18:12 08/15/24 18:53 Ondansetron 2 Mg/Ml Inj IVP 08/15/24 18:13 Not Given ONCE ONE Discontinued Medications Generic Name Dose Route Start Last Admin Trade Name Freq PRN Reason Stop Dose Admin Albuterol 2.5 mg 08/15/24 18:05 08/15/24 18:55 Albuterol Sulfate 2.5 Mg/3 Ml Vial.Erica YODER 08/15/24 18:06 2.5 mg ONCE ONE Administration Albuterol 2.5 mg 08/15/24 19:13 08/15/24 19:27 Albuterol Sulfate 2.5 Mg/3 Ml Vial.Erica YODER 08/15/24 19:14 2.5 mg ONCE ONE Administration Amoxicillin/Clavulanate Potassium 875 mg 08/15/24 19:14 08/15/24 19:26 Amoxicillin/Clavulanate 875 Mg/125 Mg Tablet PO 08/15/24 19:15 875 mg ONCE ONE Administration Azithromycin 500 mg 08/15/24 19:14 08/15/24 19:26 Azithromycin 250 Mg Tablet PO 08/15/24 19:15 500 mg ONCE ONE Administration Magnesium Sulfate 2 gm in 50 mls @ 150 mls/hr 08/15/24 19:37 08/15/24 20:26 Magnesium Iv IVPB 08/15/24 19:56 Infused ONCE ONE Infusion Ipratropium Etoile 500 mcg 08/15/24 19:41 08/15/24 19:56 Ipratropium 200 Mcg/Ml Ampul.Erica YODER 08/15/24 19:42 500 mcg ONCE ONE Administration Metoclopramide HCl 10 mg 08/15/24 18:56 08/15/24 19:19 Metoclopramide Hcl 5 Mg/Ml Inj IVP 08/15/24 18:57 10 mg ONCE ONE Administration Prednisone 50 mg 08/15/24 18:05 08/15/24 18:52 Prednisone 10 Mg Tablet PO 08/15/24 18:06 50 mg ONCE ONE Administration <Brant Borrero, DO - Last Filed: 08/15/24 20:15> Generic Name Dose Route Start Last Admin Trade Name [place] PRN Reason Stop Dose Admin Sodium Chloride 1,000 mls @ 1,000 mls/hr 08/15/24 20:30 08/15/24 20:24 0.9 % Sodium Chloride 1000 Ml IV 08/15/24 21:29 1,000 mls/hr .Q1H DIMITRIS Administration Ondansetron HCl 4 mg 08/15/24 18:12 08/15/24 18:53 Ondansetron 2 Mg/Ml Inj IVP 08/15/24 18:13 Not Given ONCE ONE Discontinued Medications Generic Name Dose Route Start Last Admin Trade Name [place] PRN Reason Stop Dose Admin Albuterol 2.5 mg 08/15/24 18:05 08/15/24 18:55 Albuterol Sulfate 2.5 Mg/3 Ml Vial.Neb [facility] 08/15/24 18:06 2.5 mg ONCE ONE Administration Albuterol 2.5 mg 08/15/24 19:13 08/15/24 19:27 Albuterol Sulfate 2.5 Mg/3 Ml Vial.Neb [facility] 08/15/24 19:14 2.5 mg ONCE ONE Administration Amoxicillin/Clavulanate Potassium 875 mg 08/15/24 19:14 08/15/24 19:26 Amoxicillin/Clavulanate 875 Mg/125 Mg Tablet PO 08/15/24 19:15 875 mg ONCE ONE Administration Azithromycin 500 mg 08/15/24 19:14 08/15/24 19:26 Azithromycin 250 Mg Tablet PO 08/15/24 19:15 500 mg ONCE ONE Administration Magnesium Sulfate 2 gm in 50 mls @ 150 mls/hr 08/15/24 19:37 08/15/24 20:26 Magnesium Iv IVPB 08/15/24 19:56 Infused ONCE ONE Infusion Ipratropium Etoile 500 mcg 08/15/24 19:41 08/15/24 19:56 Ipratropium 200 Mcg/Ml Ampul.Neb [facility] 08/15/24 19:42 500 mcg ONCE ONE Administration Metoclopramide HCl 10 mg 08/15/24 18:56 08/15/24 19:19 Metoclopramide Hcl 5 Mg/Ml Inj IVP 08/15/24 18:57 10 mg ONCE ONE Administration Prednisone 50 mg 08/15/24 18:05 08/15/24 18:52 Prednisone 10 Mg Tablet PO 08/15/24 18:06 50 mg ONCE ONE Administration <Korey Canales MD - Last Filed: 08/15/24 21:11> Medical Decision Making MDM Narrative Medical decision making narrative: Patient is a 24-year-old female to male transgender patient presenting for shortness of breath. The differential diagnosis of shortness of breath is broad and includes common etiologies such as COPD, asthma, pneumonia, viral syndrome, etc. More serious etiologies considered include PE, CHF, coronary artery disease, pneumothorax, aortic dissection, aortic aneurysm. He is very wheezy and there is likely some asthma component. Will give him another breathing treatment. Chest x-ray ordered to the look for signs of pneumonia or pneumothorax. Will also do an EKG and troponin the for signs of the ACS or myocarditis. Will give him Reglan for nausea as he is allergic to Zofran. Will also give him steroids for his asthma exacerbation. Of note his room does smell of marijuana Lab work shows elevated white count of 14.48. Neutrophilic predominance. BMP shows no concerning findings viral swab negative. Chest x-ray shows no clear signs of pneumonia. Considering he does have elevated white count with chills or will treat him as if he does have pneumonia give him Augmentin and azithromycin. His breathing has improved quite he still quite wheezy and another albuterol treatment was given. After this albuterol treatment continues to be wheezy but still states he is feeling better. Will try IV magnesium. Am concerned that his wheezing will continue to worsen if discharge right now. Will re-evaluated for possible admission after magnesium and ipratropium. He says if he does start decompensate again ABG be done. Patient was signed out to my colleague Dr. Canales <Brant Borrero DO - Last Filed: 08/15/24 20:15> Lab Data Labs: Lab Results 08/15/24 08/15/24 Range/Units 18:06 18:40 WBC 14.48 H (4.50-11.00) K/uL RBC 5.94 H (4.00-5.20) m/uL Hgb 17.1 H (12.0-16.0) gm/dL Hct 50.7 (33.0-51.0) % MCV 85 (80-100) fL MCH 29 (26-34) pg MCHC 34 (32-36) gm/dL RDW Coeff of Adriano 12.3 (11.5-15.5) % Plt Count 286 (140-440) K/uL Neut % (Auto) 78.4 H (42.0-72.0) % Lymph % (Auto) 8.0 L (20-44) % [place] % (Auto) 12.4 H (0.0-11.0) % Eos % (Auto) 0.0 (0.0-7.0) % Baso % (Auto) 0.2 (0.0-3.0) % Neut # (Auto) 11.40 H (1.7-7.0) K/uL Lymph # (Auto) 1.20 (0.90-2.90) K/uL [place] # (Auto) 1.80 H (0.00-0.90) K/UL Eos # (Auto) 0.00 (0.00-0.50) K/uL Baso # (Auto) 0.00 (0.00-0.30) K/uL Abs Immat Gran (auto) 0.10 (0.00-0.30) K/uL Imm/Tot Granulo (auto) 1.0 % Sodium 141 (135-149) mmol/L Potassium 3.3 L (3.6-5.1) mmol/L Chloride 109 (96-114) mmol/L Carbon Dioxide 24 (20-32) mmol/L Anion Gap 8 (7-15) mEq/L BUN 7 (5-24) mg/dL Creatinine 0.9 (0.5-1.5) mg/dL Estimated Creat Clear 90.23 Estimated GFR 92 ml/min Glucose 86 (60-115) mg/dL Lactate 1.9 (0.5-1.9) mmol/L Calcium 9.3 (8.4-10.6) mg/dL SARS-CoV-2 (PCR) Negative SARS-CoV-2 (Negative) Influenza Type A (PCR) Negative PCR FLU A (Negative) Influenza Type B (PCR) Negative PCR FLU B (Negative) RSV (PCR) Negative PCR RSV (Negative) POC Troponin I 0.00 L (0.01-0.04) ng/ml <Brant Ian Borrero, DO - Last Filed: 08/15/24 20:15> Lab Results 08/15/24 08/15/24 Range/Units 18:06 18:40 WBC 14.48 H (4.50-11.00) K/uL RBC 5.94 H (4.00-5.20) m/uL Hgb 17.1 H (12.0-16.0) gm/dL Hct 50.7 (33.0-51.0) % MCV 85 (80-100) fL MCH 29 (26-34) pg MCHC 34 (32-36) gm/dL RDW Coeff of Adriano 12.3 (11.5-15.5) % Plt Count 286 (140-440) K/uL Neut % (Auto) 78.4 H (42.0-72.0) % Lymph % (Auto) 8.0 L (20-44) % [place] % (Auto) 12.4 H (0.0-11.0) % Eos % (Auto) 0.0 (0.0-7.0) % Baso % (Auto) 0.2 (0.0-3.0) % Neut # (Auto) 11.40 H (1.7-7.0) K/uL Lymph # (Auto) 1.20 (0.90-2.90) K/uL [place] # (Auto) 1.80 H (0.00-0.90) K/UL Eos # (Auto) 0.00 (0.00-0.50) K/uL Baso # (Auto) 0.00 (0.00-0.30) K/uL Abs Immat Gran (auto) 0.10 (0.00-0.30) K/uL Imm/Tot Granulo (auto) 1.0 % Sodium 141 (135-149) mmol/L Potassium 3.3 L (3.6-5.1) mmol/L Chloride 109 (96-114) mmol/L Carbon Dioxide 24 (20-32) mmol/L Anion Gap 8 (7-15) mEq/L BUN 7 (5-24) mg/dL Creatinine 0.9 (0.5-1.5) mg/dL Estimated Creat Clear 90.23 Estimated GFR 92 ml/min Glucose 86 (60-115) mg/dL Lactate 1.9 (0.5-1.9) mmol/L Calcium 9.3 (8.4-10.6) mg/dL SARS-CoV-2 (PCR) Negative SARS-CoV-2 (Negative) Influenza Type A (PCR) Negative PCR FLU A (Negative) Influenza Type B (PCR) Negative PCR FLU B (Negative) RSV (PCR) Negative PCR RSV (Negative) POC Troponin I 0.00 L (0.01-0.04) ng/ml <Korey Canales MD - Last Filed: 08/15/24 21:11> ECG Data Attestation: I personally reviewed and interpreted this ECG as follows: <Brant Borrero DO - Last Filed: 08/15/24 20:15> Prior ECG tracings: available for review <Brant Borrero DO - Last Filed: 08/15/24 20:15> Interpretation: Sinus tachycardia with a rate of 117 beats per minute, normal intervals, right axis deviation, appears to have inverted T-waves in lead 3 are she and a V3. No ST abnormalities. Appears similar previous EKG on file her other than the new right axis deviation and the T-wave inversions. <Brant Borrero DO - Last Filed: 08/15/24 20:15> Discharge Plan Discharge Clinical Impression: Asthma with acute exacerbation Qualifiers: Asthma severity: severe Asthma persistence: unspecified Qualified Code(s): J45.901 - Unspecified asthma with (acute) exacerbation <Brant Borrero DO - Last Filed: 08/15/24 20:15> Activity Level: Other <Brant Borrero DO - Last Filed: 08/15/24 20:15> Other <Korey Canales MD - Last Filed: 08/15/24 21:11> Discharge Diet: Other <Brant Borrero DO - Last Filed: 08/15/24 20:15> Other <Korey Canales MD - Last Filed: 08/15/24 21:11> Prescriptions: No Action dextroamphetamine-amphetamine 5 mg capsule,extended release 24hr 10 mg PO BID hydroxyzine HCl 10 mg tablet 10 mg PO 3XD Fasenra Pen 30 mg/mL auto-injector subcut fluticasone furoate-vilanterol 100-25 mcg/dose blister with device 1 inh inhalation Q24H albuterol sulfate 90 mcg/actuation HFA aerosol inhaler 2 puff inhalation Q4-6H PRN (Reason: shortness of breath or wheezing) Qty: 8.5 3RF Combivent Respimat 20-100 mcg/actuation mist 1 puff inhalation Q6H Qty: 4 0RF benzonatate 200 mg capsule 200 mg PO BID PRN (Reason: cough) Qty: 14 0RF montelukast 10 mg tablet 10 mg PO DAILY testosterone enanthate 200 mg/mL oil 50 mg subcut Q7D Rx Instructions: FRIDAYS aripiprazole 5 mg tablet 5 mg PO DAILY Patient Comments: TAKE 1 TABLET BY MOUTH EVERY DAY ipratropium-albuterol 0.5 mg-3 mg(2.5 mg base)/3 mL solution for nebulization 3 ml inhalation Q6H PRNQty: 90 1RF famotidine 40 mg tablet 40 mg PO DAILY Patient Comments: TAKE 1 TABLET BY MOUTH EVERY DAY ibuprofen fluticasone propionate 50 mcg/actuation spray,suspension 1 spray INTRANASAL DAILY PRN <Brant Borrero DO - Last Filed: 08/15/24 20:15> Follow Up/Referrals: Shanthi Delgadillo MD [Primary Care Provider] - <Brant Borrero DO - Last Filed: 08/15/24 20:15>
[2024-08-15 18:47] LABS: Lactate Sepsis w/Reflex* 1.9 mmol/L (0.5-1.9)
[2024-08-15 18:49] LABS: Basophils Percent Auto 0.2 % (0.0-3.0); Hematocrit 50.7 % (33.0-51.0); Hemoglobin* 17.1 gm/dL (12.0-16.0); Mean Corpuscular HGB Conc 34 gm/dL (32-36); Mean Corpuscular Hemoglobin 29 pg (26-34); Mean Corpuscular Volume 85 fL (80-100); Monocytes Percent Auto 12.4 % (0.0-11.0); Neutrophils Percent Auto 78.4 % (42.0-72.0); Platelet Count* 286 K/uL (140-440); RDW Coefficient of Variation % 12.3 % (11.5-15.5); Red Blood Count 5.94 m/uL (4.00-5.20); White Blood Count* 14.48 K/uL (4.50-11.00)
[2024-08-15 18:51] LABS: Slide Review Reflex No
[2024-08-15] MEDS: predniSONE 10 MG TABLET 50 MG PO (18:52)
[2024-08-15] MEDS: ALBUTEROL SULFATE 2.5 MG/3 ML VIAL.NEB NEB ×2 (18:55→19:27)
[2024-08-15 19:04] LABS: Chloride* 109 mmol/L (96-114); Potassium* 3.3 mmol/L (3.6-5.1); Sodium* 141 mmol/L (135-149)
[2024-08-15 19:07] LABS: Anion Gap 8 mEq/L (7-15); Blood Urea Nitrogen* 7 mg/dL (5-24); Carbon Dioxide* 24 mmol/L (20-32); Creatinine* 0.9 mg/dL (0.5-1.5); Est. Creatinine Clearance* 90.23; Estimated Glomerular Filt Rate 92 ml/min; Glucose* 86 mg/dL (60-115)
[2024-08-15 19:08] LABS: Calcium* 9.3 mg/dL (8.4-10.6)
[2024-08-15] MEDS: METOCLOPRAMIDE HCL 5 MG/ML INJ 10 MG IVP (19:19)
[2024-08-15 19:26] LABS: PCR FLU A Negative PCR FLU A (Negative); PCR FLU B Negative PCR FLU B (Negative); PCR RSV Negative PCR RSV (Negative); SARS PCR* Negative SARS-CoV-2 (Negative)
[2024-08-15] MEDS: AMOXICILLIN/CLAVULANATE 875 mg/125 mg TABLET PO (19:26)
[2024-08-15] MEDS: AZITHROMYCIN 250 MG TABLET 500 MG PO (19:26)
[2024-08-15] MEDS: MAGNESIUM IV 2 GM/50 ML PIGGYBACK IVPB (19:49)
[2024-08-15] MEDS: IPRATROPIUM 200 MCG/ML AMPUL.NEB 500 MCG NEB (19:56)
[2024-08-15] MEDS: 0.9 % SODIUM CHLORIDE 1000 ml 1,000 ML IV (20:24)
--- NOTE | 2024-08-15 22:34 | PM.IMHP1 ---
Hospitalist- H&P: HPI History of Present Illness Date Seen: 08/15/24 Chief complaint: Vomiting, coughing, aching legs Narrative: Jace Wharton is a 24 year old female to male transgender person with h/o almost steroid-dependent severe asthma who presented through the ER for concern of dyspnea and coughing. He just saw his technical support representative, Dr. Capo Busby, on 07/30/24 who noted that he had been more stable on daily Breo, Combivent TID and Fasenra injections until early/mid June when he had increasing cough and congestion. He was started on prednisone, which Dr. Busby extended to a 12 day taper. Therefore Jace just finished the taper 2-3 days ago. About a day before he finished the taper, he started having nasal congestion again. He then developed coughing and vomiting. Today he has been short of breath for which he used two albuterol nebs right before coming to the ER. He denies smoking, but does vape constantly, all day long. He also uses marijuana. He tells me that his fiancee left him earlier this week and it is still a very tender subject for him. He is quite tearful about this and his mother, who is with him, notes that he has not been eating or drinking much because of the grief. Jace denies any decrease in urine output. He denies fever, chills, night sweats, rash, diarrhea. He is working with a therapist for mental health. ER course: Patient was given 2 nebulizer treatments, 50 mg of prednisone orally, ipratropium neb, and 2 g magnesium IV. He also received of 1 L IV fluid bolus. Review of Systems Status of ROS: Reports: 10 or more systems reviewed and unremarkable except as noted in History and below [facility] Medical History (Updated 08/15/24 @ 23:14 by Lilly Uribe MD) Moderate episode of recurrent major depressive disorder ?F33.1 - Major depressive disorder, recurrent, moderate (ICD-10) Fracture of occipital bone with loss of consciousness ?S02.119A - Unspecified fracture of occiput, initial encounter for closed fracture (ICD-10) ?S06.9X9A - Unspecified intracranial injury with loss of consciousness of unspecified duration, initial encounter (ICD-10) Disruptive mood dysregulation disorder ?F34.81 - Disruptive mood dysregulation disorder (ICD-10) Suicidal ideation (10/04/15) ?R45.851 - Suicidal ideations (ICD-10) 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) ?F06.30 - Mood disorder due to known physiological condition, unspecified (ICD-10) ?S06.9XAS - Unspecified intracranial injury with loss of consciousness status unknown, sequela (ICD-10) Colitis due to Clostridium difficile ?A04.72 - Enterocolitis due to Clostridium difficile, not specified as recurrent (ICD-10) ADHD ?F90.9 - Attention-deficit hyperactivity disorder, unspecified type (ICD-10) Depression ?F32.A - Depression, unspecified (ICD-10) Anxiety ?F41.9 - Anxiety disorder, unspecified (ICD-10) Breast removal, prophylactic ?Z40.01 - Encounter for prophylactic removal of breast (ICD-10) Traumatic brain injury ?S06.9XAA - Unspecified intracranial injury with loss of consciousness status unknown, initial encounter (ICD-10) Surgical History (Updated 08/15/24 @ 22:53 by Lilly Uribe MD) S/P mastectomy, bilateral (~04/2021) ?Z90.13 - Acquired absence of bilateral breasts and nipples (ICD-10) [place] teeth removed ?K08.409 - Partial loss of teeth, unspecified cause, unspecified class (ICD-10) Family History (Updated 08/15/24 @ 22:54 by Lilly Uribe MD) Maternal Grandmother Breast cancer Depression Heart disease Paternal Grandfather Heart disease Thyroid cancer Social History (Updated 08/15/24 @ 23:04 by Lilly Uribe MD) Narrative: Unemployed. Quit smoking cigarettes in 2017, Vapes. Rare alcohol use. Frequent marijuana use. Admitted to nurse that he has done fentanyl and crushed and snorted his Adderall in the past week. Highest level of school completed/degree received: high school graduate Smoking Status: Former smoker Do you use any of these nicotine containing products: E-Cigarettes and Vaping Products Nicotine containing products detail: Frequently Vapes Second hand tobacco smoke exposure: No How often do you have a drink containing alcohol: monthly or less How many standard drinks containing alcohol do you have on a typical day: 1 or 2 How often do you have six or more drinks on one occasion: Never AUDIT-C Alcohol total score: 1 Non-prescribed substance use: marijuana (any form) Non-prescribed substance use details: medical marijuana card Caffeine: No (Rarely) Do you think of yourself as: straight/heterosexual Gender Identity: male service: No Meds Home Medications and Allergies Home Medications ?Medication ?Instructions ?Recorded ?Confirmed ?Type aripiprazole 5 mg tablet 5 mg PO DAILY 04/02/22 07/28/24 History montelukast 10 mg tablet 10 mg PO DAILY 04/02/22 07/28/24 History testosterone enanthate 200 mg/mL 50 mg subcut Q7D 04/02/22 07/28/24 History intramuscular oil fluticasone propionate 50 1 spray intranasal DAILY PRN 06/15/22 07/28/24 History mcg/actuation nasal spray,suspension famotidine 40 mg tablet 40 mg PO DAILY 08/22/22 07/28/24 History dextroamphetamine-amphetamine ER 5 10 mg PO BID 06/02/23 07/28/24 History mg 24hr capsule,extend release hydroxyzine HCl 10 mg tablet 10 mg PO 3XD 06/02/23 07/28/24 History benralizumab 30 mg/mL subcutaneous mg subcut 02/09/24 07/28/24 History auto-injector (Fasenra Pen) fluticasone furoate 100 1 inh inhalation Q24H 06/23/24 07/28/24 History mcg-vilanterol 25 mcg/dose inhalation powder ibuprofen 08/15/24 History Allergies Allergy/AdvReac Type Severity Reaction Status Date / Time ondansetron (From Zofran) AdvReac Mild Vomiting Verified 08/15/24 17:52 Exam Narrative: Exam Narrative: General: Tearful, no respiratory distress. Awake alert oriented x3. Obese. HEENT: Normocephalic atraumatic, pupils equally round and reactive to light and accommodation. Oropharynx clear. Mucous membranes are moist. No cervical lymphadenopathy, thyromegaly or carotid bruits. No JVD. Cardiovascular: Tachycardic, regular. No murmurs, gallops, or rubs. Chest: No increased work of breathing or use of accessory muscles. Good air movement, expiratory wheezes throughout. Abdomen: Bowel sounds present. Soft, nondistended, nontender. No hepatosplenomegaly or masses. Extremities: No edema, no cyanosis or clubbing. Skin: No jaundice, no pallor, no rashes. Const: Vital Signs, click to edit/add: Vital Signs - 24 hr 08/15/24 17:48 08/15/24 18:37 08/15/24 18:45 Temperature 98.7 F Pulse Rate 117 H 139 H Pulse Rate [Left P ulse Oximeter] 130 H Respiratory Rate 22 Blood Pressure Blood Pressure [Ri ght Upper Arm] 119/79 Pulse Oximetry 95 91 94 Oxygen Delivery Me thod Room Air Oxygen Flow Rate 08/15/24 19:00 08/15/24 19:02 08/15/24 19:15 Temperature Pulse Rate 116 H 106 H 112 H Pulse Rate [Left P ulse Oximeter] Respiratory Rate Blood Pressure 109/61 Blood Pressure [Ri ght Upper Arm] Pulse Oximetry 94 95 93 Oxygen Delivery Me thod Oxygen Flow Rate 08/15/24 19:30 08/15/24 19:31 08/15/24 19:45 Temperature Pulse Rate 104 H 116 H 115 H Pulse Rate [Left P ulse Oximeter] Respiratory Rate Blood Pressure 116/71 Blood Pressure [Ri ght Upper Arm] Pulse Oximetry 100 100 95 Oxygen Delivery Me thod Oxygen Flow Rate 08/15/24 20:00 08/15/24 20:02 08/15/24 20:15 Temperature Pulse Rate 120 H 119 H 120 H Pulse Rate [Left P ulse Oximeter] Respiratory Rate Blood Pressure 128/66 Blood Pressure [Ri ght Upper Arm] Pulse Oximetry 97 96 90 Oxygen Delivery Me thod Oxygen Flow Rate 08/15/24 20:30 08/15/24 20:31 08/15/24 20:45 Temperature Pulse Rate 125 H 123 H 123 H Pulse Rate [Left P ulse Oximeter] Respiratory Rate Blood Pressure 111/70 Blood Pressure [Ri ght Upper Arm] Pulse Oximetry 92 91 90 Oxygen Delivery Me thod Oxygen Flow Rate 08/15/24 20:55 08/15/24 20:58 08/15/24 21:00 Temperature Pulse Rate 121 H Pulse Rate [Left P ulse Oximeter] Respiratory Rate Blood Pressure Blood Pressure [Ri ght Upper Arm] Pulse Oximetry 86 L 92 89 Oxygen Delivery Me thod Room Air Room Air Oxygen Flow Rate 2 08/15/24 21:02 08/15/24 21:03 08/15/24 21:15 Temperature Pulse Rate 119 H 117 H 122 H Pulse Rate [Left P ulse Oximeter] Respiratory Rate Blood Pressure 120/63 Blood Pressure [Ri ght Upper Arm] Pulse Oximetry 91 91 92 Oxygen Delivery Me thod Nasal Cannula Nasal Cannula Nasal Cannula Oxygen Flow Rate 2 2 2 08/15/24 21:30 08/15/24 21:32 Temperature Pulse Rate 116 H Pulse Rate [Left P ulse Oximeter] Respiratory Rate Blood Pressure 137/90 H Blood Pressure [Ri ght Upper Arm] Pulse Oximetry 93 Oxygen Delivery Me thod Oxygen Flow Rate 2 Hospitalist - H&P: Result Labs Labs: Short CBC 08/15/24 Range/Units 18:40 WBC 14.48 H (4.50-11.00) K/uL Hgb 17.1 H (12.0-16.0) gm/dL Hct 50.7 (33.0-51.0) % Plt Count 286 (140-440) K/uL BMP 08/15/24 18:40 Sodium 141 Potassium 3.3 L Chloride 109 Carbon Dioxide 24 BUN 7 Creatinine 0.9 Glucose 86 Calcium 9.3 08/15/2024 EKG: Sinus tachycardia, 117 beats per minute, rightward axis, T-wave abnormality, consider inferior ischemia. Ordering Physician: rBant Borrero D.O. Date of Service: 08/15/24 Procedure(s): XR chest 2V Accession Number(s): [id number] cc: Brant Borrero D.O.; Shanthi Delgadillo M.D.~ For Patients: As a result of the Century Cures Act, medical imaging exams and procedure reports are released immediately into your electronic medical record. You may view this report before your referring provider. If you have questions, please contact your health care provider. INDICATION: Worsening shortness of breath and cough. TECHNIQUE: Chest 2 views. COMPARISON: July 28, 2024. FINDINGS: Cardiovascular and mediastinum: Heart size and vasculature are normal in caliber and appearance. Lungs and pleural spaces: Lungs are clear. No sign of infiltrate or mass. No sign of pleural effusion. No pneumothorax. Bones and soft tissues: No significant findings. IMPRESSION: No acute findings and no significant changes from the prior exam. Dictated by Benjamin De La Cruz MD @ 08/15/2024 7:23:08 PM (Electronically Signed) Assessment and Plan Assessment and plan (1) Asthma with acute exacerbation: Problem comment: - acute on chronic - severe persistent asthma, with recent prolonged prednisone taper - patient given 50 mg of prednisone in the emergency department today. Will continue high-dose prednisone daily for exacerbation, patient will need prolonged taper. May benefit from seeing technical support representative soon again as an outpatient. Continue scheduled DuoNebs and as needed albuterol neb. Status: Acute (2) Sinus tachycardia: Problem comment: - secondary to albuterol nebulizer use, EKG reviewed, monitor with vital signs. Status: Acute (3) Hypokalemia: Problem comment: - suspect secondary to nebulizer use. Recheck. Status: Acute (4) Tobacco dependence: Problem comment: - nicotine vapes - nicotine replacement - patch Status: Resolved Total Time Spent Total Time Spent: Time spent: Today I spent 75 minutes seeing the patient, discussing the patient with ER staff, reviewing Expanse and EPIC notes/diagnostics, pulmonology notes, discussing the care plan with our care time that includes senior living and documenting my impressions and plan in the medical record.
[2024-08-15 23:27] LABS: Potassium* 3.5 mmol/L (3.6-5.1)
[2024-08-16 03:00] VITALS: BP 107/62; RESP 26; TEMP 36.8; O2SAT 94
[2024-08-16 03:05] VITALS: O2SAT 93
--- NOTE | 2024-08-16 05:51 | PC.NURSE ---
Pt SOB with exertion upon arrival to floor, on 2L nasal cannula. Independent, rate pain in ribs due to coughing /, pt states that he is feeling better than before, denies and PRN medications for said pain. Pt was able to eat toast and broth without complaint of N/V. While pt is sleeping O2 sats held in mid 90's, O2 was turn down from 2 to 1 to RA, pt is currently @92-95% on RA. Heart Rate upon arrival to floor was in 110's, currently is mid 70-80's.
--- NOTE | 2024-08-16 06:00 | CRLHL7_ITS ---
For Patients: As a result of the Century Cures Act, medical imaging exams and procedure reports are released immediately into your electronic medical record. You may view this report before your referring provider. If you have questions, please contact your health care provider. Indication: : Asthma exacerbation leukocytosis TECHNIQUE: Single-view chest. FINDINGS: The lungs are clear. The heart, mediastinum and pulmonary vessels are of normal size. There is no evidence of pleural disease. IMPRESSION: Negative chest. Dictated by Elle Vaca MD @ 08/16/2024 7:21:16 AM (Electronically Signed)
[2024-08-16 06:20] LABS: Basophils Percent Auto 0.1 % (0.0-3.0); Hemoglobin* 15.9 gm/dL (12.0-16.0); Immature Granulocytes Pct Auto 1.7 %; Lymphocytes Percent Auto 11.3 % (20-44); Mean Corpuscular HGB Conc 34 gm/dL (32-36); Mean Corpuscular Hemoglobin 29 pg (26-34); Mean Corpuscular Volume 86 fL (80-100); Monocytes Percent Auto 12.2 % (0.0-11.0); Neutrophils Percent Auto 74.7 % (42.0-72.0); Platelet Count* 281 K/uL (140-440); RDW Coefficient of Variation % 12.3 % (11.5-15.5); Red Blood Count 5.48 m/uL (4.00-5.20); White Blood Count* 12.79 K/uL (4.50-11.00)
[2024-08-16 06:29] LABS: Slide Review Reflex No
[2024-08-16 08:00] VITALS: PULSE 114; RESP 18
[2024-08-16] MEDS: predniSONE 20 MG TABLET 60 MG PO (08:03)
[2024-08-16 08:10] VITALS: BP 131/88; PULSE 114; RESP 18; TEMP 36.5; O2SAT 93
[2024-08-16] MEDS: ALBUTEROL SULFATE 2.5 MG/3 ML VIAL.NEB NEB (08:16)
[2024-08-16] MEDS: MONTELUKAST 10 MG TABLET PO (08:49)
[2024-08-16] MEDS: IPRAT-ALBUT 0.5-2.5 MG/3 ML NEB 1 NEB IH (10:20)
--- NOTE | 2024-08-16 11:11 | PC.NURSE ---
Discharge: patient pleasant and cooperatve, A&O. VSS, afebrile. SpO2 maintained above 90% on RA. Patient denies pain this shift. IV removed with tip intact. Discharge instructions provided, all questions answered. Discharged to home with family.
--- NOTE | 2024-08-16 15:44 | PM.DS1 ---
DS: Providers Provider Date Seen: 08/16/24 Date of admission: 08/15/24 21:34 Primary care physician: Shanthi Delgadillo MD Admitting Clinician: Lilly Uribe MD Attending Physician on discharge: Jesus Shah MD Date of Discharge: 08/16/24 DS: Diagnosis Discharge Diagnosis (1) Asthma with acute exacerbation: Status: Acute Problem details: Had asthma problems the beginning July. Put on a 12 day taper. Asthma got worse couple days after finishing the taper. Continues on home inhalers as prescribed. Follows with pulmonology. No definite recent respiratory illness. 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 EKG reviewed, monitor with vital signs. (6) Hypokalemia: Status: Acute Problem details: - suspect secondary to nebulizer use. Potassium 3.5 today DS: Summary Hospital Course Hospital Course: 24-year-old male with chronic persistent fairly severe asthma admitted to the hospital with asthma exacerbation. He had problems early in July. 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 Was placed on a prednisone taper over 12 days. Couple days after that was finished he started having breathing problems again in presents to our emergency room. In our emergency room he was tachypneic with respiratory rate of 22, tachycardic with a pulse of 121, hypoxic with an O2 sat of 86% on room air. He had generalized wheezing. Treated with prednisone and inhaled bronchodilators. Overnight he has improved. He is off oxygen. Tachypnea and tachycardia are better. Time Spent with Patient Time attestation: Total time spent providing and/or coordinating discharge services: 40 minutes Time spent: Greater than 30 minutes Exam Narrative: Exam Narrative: He is alert and appears in no obvious respiratory distress breathing room air. Respirations with fairly good breath sounds in all lung lim. Mild expiratory wheezing. A little more prominent in the lung bases. No consolidation. Cardiovascular: S1, S2, regular rate and rhythm. Abdomen is soft without tenderness or mass. Extremities without edema. Const: Vital Signs, click to edit/add: Vital Signs - 24 hr 08/15/24 17:48 08/15/24 18:37 08/15/24 18:45 Temperature 98.7 F Pulse Rate 117 H 139 H Pulse Rate [Left P ulse Oximeter] 130 H Pulse Rate [Pulse Oximeter] Respiratory Rate 22 Blood Pressure Blood Pressure [Ri ght Arm] Blood Pressure [Ri ght Upper Arm] 119/79 Pulse Oximetry 95 91 94 Oxygen Delivery Me thod Room Air Oxygen Flow Rate 08/15/24 19:00 08/15/24 19:02 08/15/24 19:15 Temperature Pulse Rate 116 H 106 H 112 H Pulse Rate [Left P ulse Oximeter] Pulse Rate [Pulse Oximeter] Respiratory Rate Blood Pressure 109/61 Blood Pressure [Ri ght Arm] Blood Pressure [Ri ght Upper Arm] Pulse Oximetry 94 95 93 Oxygen Delivery Me thod Oxygen Flow Rate 08/15/24 19:30 08/15/24 19:31 08/15/24 19:45 Temperature Pulse Rate 104 H 116 H 115 H Pulse Rate [Left P ulse Oximeter] Pulse Rate [Pulse Oximeter] Respiratory Rate Blood Pressure 116/71 Blood Pressure [Ri ght Arm] Blood Pressure [Ri ght Upper Arm] Pulse Oximetry 100 100 95 Oxygen Delivery Me thod Oxygen Flow Rate 08/15/24 20:00 08/15/24 20:02 08/15/24 20:15 Temperature Pulse Rate 120 H 119 H 120 H Pulse Rate [Left P ulse Oximeter] Pulse Rate [Pulse Oximeter] Respiratory Rate Blood Pressure 128/66 Blood Pressure [Ri ght Arm] Blood Pressure [Ri ght Upper Arm] Pulse Oximetry 97 96 90 Oxygen Delivery Me thod Oxygen Flow Rate 08/15/24 20:30 08/15/24 20:31 08/15/24 20:45 Temperature Pulse Rate 125 H 123 H 123 H Pulse Rate [Left P ulse Oximeter] Pulse Rate [Pulse Oximeter] Respiratory Rate Blood Pressure 111/70 Blood Pressure [Ri ght Arm] Blood Pressure [Ri ght Upper Arm] Pulse Oximetry 92 91 90 Oxygen Delivery Me thod Oxygen Flow Rate 08/15/24 20:55 08/15/24 20:58 08/15/24 21:00 Temperature Pulse Rate 121 H Pulse Rate [Left P ulse Oximeter] Pulse Rate [Pulse Oximeter] Respiratory Rate Blood Pressure Blood Pressure [Ri ght Arm] Blood Pressure [Ri ght Upper Arm] Pulse Oximetry 86 L 92 89 Oxygen Delivery Me thod Room Air Room Air Oxygen Flow Rate 2 08/15/24 21:02 08/15/24 21:03 08/15/24 21:15 Temperature Pulse Rate 119 H 117 H 122 H Pulse Rate [Left P ulse Oximeter] Pulse Rate [Pulse Oximeter] Respiratory Rate Blood Pressure 120/63 Blood Pressure [Ri ght Arm] Blood Pressure [Ri ght Upper Arm] Pulse Oximetry 91 91 92 Oxygen Delivery Me thod Nasal Cannula Nasal Cannula Nasal Cannula Oxygen Flow Rate 2 2 2 08/15/24 21:30 08/15/24 21:32 08/15/24 21:54 Temperature 98.4 F Pulse Rate 116 H Pulse Rate [Left P ulse Oximeter] Pulse Rate [Pulse Oximeter] Respiratory Rate 20 Blood Pressure 137/90 H Blood Pressure [Ri ght Arm] Blood Pressure [Ri ght Upper Arm] Pulse Oximetry 93 96 Oxygen Delivery Me thod Nasal Cannula Oxygen Flow Rate 2 2 08/15/24 21:54 08/15/24 23:00 08/15/24 23:00 Temperature Pulse Rate Pulse Rate [Left P ulse Oximeter] Pulse Rate [Pulse Oximeter] Respiratory Rate 22 22 Blood Pressure Blood Pressure [Ri ght Arm] Blood Pressure [Ri ght Upper Arm] Pulse Oximetry 95 96 Oxygen Delivery Me thod Nasal Cannula Nasal Cannula Oxygen Flow Rate 2 2 08/15/24 23:05 08/16/24 03:00 08/16/24 03:05 Temperature 98.3 F Pulse Rate Pulse Rate [Left P ulse Oximeter] Pulse Rate [Pulse Oximeter] Respiratory Rate 26 H Blood Pressure Blood Pressure [Ri ght Arm] 107/62 Blood Pressure [Ri ght Upper Arm] Pulse Oximetry 93 94 93 Oxygen Delivery Me thod Nasal Cannula Room Air Nasal Can nula Room Air Oxygen Flow Rate 1 1 08/16/24 08:00 08/16/24 08:10 Temperature 97.7 F Pulse Rate Pulse Rate [Left P ulse Oximeter] Pulse Rate [Pulse Oximeter] 114 H 114 H Respiratory Rate 18 18 Blood Pressure Blood Pressure [Ri ght Arm] 131/88 Blood Pressure [Ri ght Upper Arm] Pulse Oximetry 93 Oxygen Delivery Me thod Room Air Oxygen Flow Rate Documenting provider has reviewed patient's vital signs: yes DS: Data Data Completed and Pending Labs on day of discharge: Labs from last 24 hours 08/16/24 08/15/24 08/15/24 06:08 23:09 18:40 WBC 12.79 H 14.48 H RBC 5.48 H 5.94 H Hgb 15.9 17.1 H Hct 47.0 50.7 MCV 86 85 MCH 29 29 MCHC 34 34 RDW Coeff of Adriano 12.3 12.3 Plt Count 281 286 Neut % (Auto) 74.7 H 78.4 H Lymph % (Auto) 11.3 L 8.0 L [place] % (Auto) 12.2 H 12.4 H Eos % (Auto) 0.0 0.0 Baso % (Auto) 0.1 0.2 Neut # (Auto) 9.60 H 11.40 H Lymph # (Auto) 1.40 1.20 [place] # (Auto) 1.60 H 1.80 H Eos # (Auto) 0.00 0.00 Baso # (Auto) 0.00 0.00 Abs Immat Gran (auto) 0.20 0.10 Imm/Tot Granulo (auto) 1.7 1.0 Sodium 141 Potassium 3.5 L 3.3 L Chloride 109 Carbon Dioxide 24 Anion Gap 8 BUN 7 Creatinine 0.9 Estimated Creat Clear 90.23 Estimated GFR 92 Glucose 86 Lactate 1.9 Calcium 9.3 SARS-CoV-2 (PCR) Negative SARS-CoV-2 Influenza Type A (PCR) Negative PCR FLU A Influenza Type B (PCR) Negative PCR FLU B RSV (PCR) Negative PCR RSV POC Troponin I 08/15/24 18:06 WBC RBC Hgb Hct MCV MCH MCHC RDW Coeff of Adriano Plt Count Neut % (Auto) Lymph % (Auto) [place] % (Auto) Eos % (Auto) Baso % (Auto) Neut # (Auto) Lymph # (Auto) [place] # (Auto) Eos # (Auto) Baso # (Auto) Abs Immat Gran (auto) Imm/Tot Granulo (auto) Sodium Potassium Chloride Carbon Dioxide Anion Gap BUN Creatinine Estimated Creat Clear Estimated GFR Glucose Lactate Calcium SARS-CoV-2 (PCR) Influenza Type A (PCR) Influenza Type B (PCR) RSV (PCR) POC Troponin I 0.00 L Imaging Chest x-ray: Radiologist's impression: Indication: : Asthma exacerbation leukocytosis TECHNIQUE: Single-view chest. FINDINGS: The lungs are clear. The heart, mediastinum and pulmonary vessels are of normal size. There is no evidence of pleural disease. IMPRESSION: Negative chest. Discharge Plan Discharge Disposition: Home, Self-Care Date of Admission: 08/15/24 21:34 Primary Care Provider: Shanthi Delgadillo I Condition: Improved Anticipated Discharge Date/Time: 08/16/24 09:49 Discharge Medications: New prednisone 10 mg tablet 10 mg PO DIRECTED Qty: 34 0RF Rx Instructions: Take 4 tablets, 40 mg, daily for 3 days then take 3 tablets daily for 3 days then 2 tablets daily for 3 days then 1 tablet daily for 3 days. Continued Fasenra Pen 30 mg/mL auto-injector 30 mg subcut Q8W albuterol sulfate 90 mcg/actuation HFA aerosol inhaler 2 puff inhalation Q4-6H PRN (Reason: shortness of breath or wheezing) Qty: 8.5 3RF montelukast 10 mg tablet 10 mg PO DAILY testosterone enanthate 200 mg/mL oil 70 mg subcut Q7D Rx Instructions: FRIDAYS ipratropium-albuterol 0.5 mg-3 mg(2.5 mg base)/3 mL solution for nebulization 3 ml inhalation Q6H PRNQty: 90 1RF ibuprofen dextroamphetamine-amphetamine 10 mg tablet 1 tab PO HS aripiprazole 15 mg tablet 15 mg PO DAILY dextroamphetamine-amphetamine 15 mg tablet 1 tab PO DAILY dextroamphetamine-amphetamine 10 mg capsule,extended release 24hr 1 cap PO BID Combivent Respimat 20-100 mcg/actuation mist 1 puff inhalation TID sertraline 100 mg tablet 200 mg PO DAILY fluticasone furoate-vilanterol [Breo Ellipta] 200-25 mcg/dose blister with device 1 ea inhalation DAILY levalbuterol tartrate 45 mcg/actuation HFA aerosol inhaler 2 puff INHALATION Q4H PRN (Reason: wheezing) Discharge Orders: Discharge Order (Routine); Ordered 08/16/24 Ordered By: Liu Shah Patient Education: Prednisone (By mouth), Asthma (DC) Activity Level: Activity as Tolerated and Other Discharge Diet: Regular and Other Follow Up Appointments: Shanthi Delgadillo MD [Primary Care Provider] - REINALDO MAX MD [Referring] - (Please call on Saturday to schedule a follow up in 12 -15 days with your PCP) Forms: [employer] Info Instructions
== END 2024-08-16 10:53 | disposition home or self-care (01) ==
LOC: ED 18:24 → MEDSURG 21:36
PROVIDERS: Admitting Provider Family Medicine; Emergency Provider Student in an Organized Health Care Education/Training Program; PCP Family Medicine; Visit Provider Family Medicine
DX: J45.901 Unspecified asthma with (acute) exacerbation (principal); R00.0 Tachycardia, unspecified; D72.829 Elevated white blood cell count, unspecified; E87.6 Hypokalemia; F64.0 Transsexualism; R05.9 Cough, unspecified; F12.90 Cannabis use, unspecified, uncomplicated; Z72.0 Tobacco use; Z79.899 Other long term (current) drug therapy; M79.662 Pain in left lower leg; M79.661 Pain in right lower leg
CPT/HCPCS: 99100; 36415; 36600; 71045; 71046; 80048; 82803; 83605; 84132; 84484; 85025; 87631; 93005; 94640; 96361; 96365; 96375; 99284; 99285; A9270; G0378; J2765; J3475; J7030; J7512; J7644

== ENCOUNTER 2024-08-28 11:54 | Emergency (ER) | payer MEDICARE, MEDICAID, SELFPAY ==
[2024-08-28 12:06] VITALS: BP 127/87; PULSE 94; RESP 16; TEMP 36.9; O2SAT 96; BMI 28.2
--- NOTE | 2024-08-28 14:34 | ED_ITS ---
HPI - General Adult General Time Seen by Provider: 14:34 Date Seen: 08/28/24 Chief complaint: Diarrhea Stated complaint: Vomiting, bloody stool Time Seen by Provider: 08/28/24 14:34 Source: patient, RN notes reviewed and old records reviewed Mode of arrival: ambulatory Limitations: no limitations History of Present Illness HPI narrative: This 24-year-old transgender male is coming in not feeling well. He has been having diarrhea and vomiting for about a week. No noted fever. There has been some abdominal pain. Complains of cramping. He has had diminished appetite, states if he eats or drinks anything, either has to throw up or will have diarrhea. Did notice that diarrhea looked dark. Has had a history of C difficile colitis. Due to his TBI, can not really relate or remember prior episode. Did collect stool here. Is unaware of any ill contacts, states he has just been at home because he has not felt well. Sometimes stool is green looking, sometimes darker, no bright red blood. Is allergic to Zofran but looks to have tolerated Reglan before. Was hospitalized August 14 through the here with asthma exacerbation. Had been on prednisone prior to that, had done a 12 day taper. Continued with further prednisone after that. Received a single oral azithromycin in the ER on August 14, do not see further antibiotics given from that hospitalization. Jace denies further outpatient antibiotics. He states he is feeling much better as far as his lungs and asthma. Related Data Home Medications ?Medication ?Instructions ?Recorded ?Confirmed montelukast 10 mg tablet 10 mg PO DAILY 04/02/22 08/28/24 testosterone enanthate 200 mg/mL 70 mg subcut Q7D 04/02/22 08/28/24 intramuscular oil benralizumab 30 mg/mL subcutaneous 30 mg subcut Q8W 02/09/24 08/28/24 auto-injector (Fasenra Pen) ibuprofen 08/15/24 aripiprazole 15 mg tablet 15 mg PO DAILY 08/16/24 08/28/24 dextroamphetamine-amphetamine 10 1 tab PO HS 08/16/24 08/28/24 mg tablet dextroamphetamine-amphetamine 15 1 tab PO DAILY 08/16/24 08/28/24 mg tablet dextroamphetamine-amphetamine ER 1 cap PO BID 08/16/24 08/28/24 10 mg 24hr capsule,extend release fluticasone furoate 200 1 ea inhalation DAILY 08/16/24 08/28/24 mcg-vilanterol 25 mcg/dose inhalation powder (Breo Ellipta) ipratropium 20 mcg-albuterol 100 1 puff inhalation TID 08/16/24 08/28/24 mcg/actuation mist for inhalation (Combivent Respimat) levalbuterol tartrate 45 2 puff inhalation Q4H PRN wheezing 08/16/24 08/28/24 mcg/actuation aerosol inhaler sertraline 100 mg tablet 200 mg PO DAILY 08/16/24 08/28/24 trazodone 150 mg tablet 150 mg PO QPM 08/28/24 08/28/24 Previous Rx's ?Medication ?Instructions ?Recorded ipratropium 0.5 mg-albuterol 3 mg 3 ml inhalation Q6H PRN #90 mL 06/09/22 (2.5 mg base)/3 mL nebulization soln albuterol sulfate 90 mcg/actuation 2 puff inhalation Q4-6H PRN 09/08/23 aerosol inhaler shortness of breath or wheezing #8.5 grams metoclopramide HCl 5 mg tablet 5 mg PO BID PRN nausea and 08/28/24 vomiting #20 tabs Allergies Allergy/AdvReac Type Severity Reaction Status Date / Time ondansetron (From Zofran) AdvReac Mild Vomiting Verified 08/28/24 12:14 Review of Systems Status of ROS: Reports: 6 or more systems reviewed and unremarkable except as noted in History and below [facility] Medical History Hypokalemia ?E87.6 - Hypokalemia (ICD-10) Vapes nicotine containing substance ?Z72.0 - Tobacco use (ICD-10) Moderate episode of recurrent major depressive disorder ?F33.1 - Major depressive disorder, recurrent, moderate (ICD-10) Fracture of occipital bone with loss of consciousness ?S02.119A - Unspecified fracture of occiput, initial encounter for closed fracture (ICD-10) ?S06.9X9A - Unspecified intracranial injury with loss of consciousness of unspecified duration, initial encounter (ICD-10) Disruptive mood dysregulation disorder ?F34.81 - Disruptive mood dysregulation disorder (ICD-10) Suicidal ideation (10/04/15) ?R45.851 - Suicidal ideations (ICD-10) 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) ?F06.30 - Mood disorder due to known physiological condition, unspecified (ICD-10) ?S06.9XAS - Unspecified intracranial injury with loss of consciousness status unknown, sequela (ICD-10) Colitis due to Clostridium difficile ?A04.72 - Enterocolitis due to Clostridium difficile, not specified as recur rent (ICD-10) ADHD ?F90.9 - Attention-deficit hyperactivity disorder, unspecified type (ICD-10) Depression ?F32.A - Depression, unspecified (ICD-10) Anxiety ?F41.9 - Anxiety disorder, unspecified (ICD-10) Breast removal, prophylactic ?Z40.01 - Encounter for prophylactic removal of breast (ICD-10) Traumatic brain injury ?S06.9XAA - Unspecified intracranial injury with loss of consciousness status unknown, initial encounter (ICD-10) Surgical History S/P mastectomy, bilateral (~04/2021) ?Z90.13 - Acquired absence of bilateral breasts and nipples (ICD-10) [place] teeth removed ?K08.409 - Partial loss of teeth, unspecified cause, unspecified class (ICD- 10) Family History Maternal Grandmother Breast cancer Depression Heart disease Paternal Grandfather Heart disease Thyroid cancer Social History Narrative: Unemployed. Quit smoking cigarettes in 2017, Vapes. Rare alcohol use. Frequent marijuana use. Admitted to nurse that he has done fentanyl and crushed and snorted his Adderall in the past week. What is your current living situation?: I presently have a place to live Problems where you live: no known problems Problems where you live details: n/a In the past 12 months, utilities in danger of being shut off: no In past 12 months, lack of transportation kept you from medical appts, meetings, work, or getting things needed for daily living: no In the past 12 mos, have been you worried that your food would run out before you had money to buy more?: never true In the past 12 mos, the food you bought just didn't last and you didn't have money to buy more?: never true Highest level of school completed/degree received: high school graduate Smoking Status: Former smoker Do you use any of these nicotine containing products: E-Cigarettes and Vaping Products Nicotine containing products detail: Frequently Vapes Second hand tobacco smoke exposure: No How often do you have a drink containing alcohol: monthly or less How many standard drinks containing alcohol do you have on a typical day: 1 or 2 How often do you have six or more drinks on one occasion: Never AUDIT-C Alcohol total score: 1 Non-prescribed substance use: marijuana (any form) Non-prescribed substance use details: medical marijuana card Caffeine: No (Rarely) How often does anyone, including family, friends and others, physically hurt you : never How often does anyone, including family, friends and others, insult or talk down to you: rarely How often does anyone, including family, friends and others, threaten you with harm: never How often does anyone, including family, friends and others, scream or curse at you: rarely Do you think of yourself as: straight/heterosexual Gender Identity: male service: No Health Related Social Needs: Other personal risk factors, not elsewhere classified (Z91.89) Exam Const: Vital Signs, click to edit/add: Vital Signs - 24 hr 08/28/24 12:06 Temperature 98.5 F Pulse Rate [Pulse Oximeter] 94 Respiratory Rate 16 Blood Pressure [Ri ght Upper Arm] 127/87 Pulse Oximetry 96 Oxygen Delivery Me thod Room Air Jace is a very pleasant 24-year-old male seen in exam room for. Pupils are equal round reactive, sclera clear, symmetrical facial function coming able speak in complete sentences. Is hanging onto an emesis bag. Lungs are clear, good air entry, no wheezing or crackles, no prolonged expiratory phase, no tachypnea. CV regular rate and rhythm, no murmur, normal S1-S2, no S3-S4. Abdomen is soft, minimal tenderness right lower abdomen without rebound or guarding. Do not feel any organomegaly or masses. Abdomen is not distended, does have normal bowel sounds. Documenting provider has reviewed patient's vital signs: yes Course Course ED Course: This have reviewed with Jace that will place an IV, give him a small bolus of I V fluids and some Reglan for nausea control. Will check baseline labs, have ordered C difficile stool study. May consider ordering stool cultures and ova and parasite if need be. Will await some of his labs back before ordering any imaging. This could be viral gastroenteritis, could be C difficile. Clinically, not convinced that imaging is going to be necessary or add anything to the picture. Will see where his white count and labs are in aid of this decision making process. Reevaluation(s) Time of Reevaluation #1: 15:53 Reevaluation #1: The patient is re-evaluated. He is feeling better with the IV fluids and Reglan. Did discuss the mild increase in his liver enzymes, certainly could be associated with viral etiologies. He C difficile is negative. Did add on stool cultures and ova and parasite. His pain is really more right sided per his report, more right abdomen and not so much right upper quadrant. Given there are changes with the liver enzymes and he is having nausea vomiting and diarrhea, will look at a right upper quadrant ultrasound just ensure no biliary pathology. Also do a flat and upright looking at any bowel pathology. Do not feel CT imaging is necessary at this time. This is extremely unlikely to be appendicitis with a week's history of symptoms. Time of Reevaluation #2: 16:54 Reevaluation #2: Have updated Jace on normal imaging and thought that this is likely gastroenteritis. The smt machine operator did not see any acute pathology as far as gallbladder, there may have been some fatty liver. This could be why liver enzymes are mildly up or from viral etiology. Jace will go home and try outpatient management at this time. Vital Signs Vital signs: Initial Vital Signs Temperature 98.5 F 08/28/24 12:06 Temperature Source Temporal Artery Scan 08/28/24 12:06 Pulse Rate 94 08/28/24 12:06 Respiratory Rate 16 08/28/24 12:06 Blood Pressure 127/87 08/28/24 12:06 Blood Pressure Mean 100 08/28/24 12:06 Blood Pressure Position Sitting 08/28/24 12:06 Pulse Oximetry 96 08/28/24 12:06 Oxygen Delivery Method Room Air 08/28/24 12:06 Vital Signs Temperature 98.5 F 08/28/24 12:06 Pulse Rate 94 08/28/24 12:06 Respiratory Rate 16 08/28/24 12:06 Blood Pressure 127/87 08/28/24 12:06 Pulse Oximetry 96 08/28/24 12:06 Oxygen Delivery Method Room Air 08/28/24 12:06 Temperature 98.5 F 08/28/24 12:06 Pulse Rate 94 08/28/24 12:06 Respiratory Rate 16 08/28/24 12:06 Blood Pressure 127/87 08/28/24 12:06 Pulse Oximetry 96 08/28/24 12:06 Oxygen Delivery Method Room Air 08/28/24 12:06 Medications Administered Medications: Discontinued Medications Generic Name Dose Route Start Last Admin Trade Name Freq PRN Reason Stop Dose Admin Sodium Chloride 500 mls @ 500 mls/hr 08/28/24 14:44 08/28/24 16:16 0.9 % Sodium Chloride 500 Ml IV 08/28/24 15:43 Infused .Q1H ONE Infusion Metoclopramide HCl 5 mg 08/28/24 14:44 08/28/24 15:26 Metoclopramide Hcl 5 Mg/Ml Inj IVP 08/28/24 14:45 5 mg ONCE ONE Administration Medical Decision Making Lab Data Lab results reviewed: Yes I reviewed the patient's lab results Labs: Lab Results 08/28/24 08/28/24 Range/Units 14:40 15:15 WBC 11.45 H (4.50-11.00) K/uL RBC 6.33 H (4.00-5.20) m/uL Hgb 18.5 H (12.0-16.0) gm/dL Hct 54.0 H (33.0-51.0) % MCV 85 (80-100) fL MCH 29 (26-34) pg MCHC 34 (32-36) gm/dL RDW Coeff of Adriano 12.6 (11.5-15.5) % Plt Count 289 (140-440) K/uL Neut % (Auto) 64.8 (42.0-72.0) % Lymph % (Auto) 25.1 (20-44) % Mcminn % (Auto) 9.0 (0.0-11.0) % Eos % (Auto) 0.0 (0.0-7.0) % Baso % (Auto) 0.1 (0.0-3.0) % Neut # (Auto) 7.40 H (1.7-7.0) K/uL Lymph # (Auto) 2.90 (0.90-2.90) K/uL Mcminn # (Auto) 1.00 H (0.00-0.90) K/UL Eos # (Auto) 0.00 (0.00-0.50) K/uL Baso # (Auto) 0.00 (0.00-0.30) K/uL Abs Immat Gran (auto) 0.10 (0.00-0.30) K/uL Imm/Tot Granulo (auto) 1.0 % Sodium 139 (135-149) mmol/L Potassium 3.5 L (3.6-5.1) mmol/L Chloride 104 (96-114) mmol/L Carbon Dioxide 26 (20-32) mmol/L Anion Gap 9 (7-15) mEq/L BUN 8 (5-24) mg/dL Creatinine 0.9 (0.5-1.5) mg/dL Estimated Creat Clear 90.23 Estimated GFR 92 ml/min Glucose 96 (60-115) mg/dL Lactate 1.6 (0.5-1.9) mmol/L Calcium 9.4 (8.4-10.6) mg/dL Total Bilirubin 2.1 H (0.1-1.5) mg/dL AST 42 H (12-35) U/L ALT 56 H (4-35) U/L Alkaline Phosphatase 85 (40-150) U/L C-Reactive Protein 0.8 (0.5-1.0) mg/dL Total Protein 8.2 (6.0-8.3) g/dL Albumin 4.7 (3.3-5.0) g/dL Stl C. diff Tox B Gene Negative (Negative) Stl C. diff [id number] PRESUMPTIVE NEGATIVE (Negative) Imaging Data Abdominal x-ray: Attestation: I have reviewed the pertinent imaging results. My impression: No abnormal bowel pathology, no obstructive pathology on my preliminary review of this flat and upright abdominal films. Radiologist's impression: Patient: DANDRE ALVARADO Facility:[facility] Patient ID:?[id number] Site Patient ID:?[id number]. Site :?[id number] Study:?XRay-Abdomen/Pelvis 3view flat and upright-08/28/2024 4:11:11 PM Ordering Physician:Sugar Markham Final Report: INDICATION: Nausea vomiting and diarrhea TECHNIQUE: Abdomen 2 view. COMPARISON: None FINDINGS: Bowel: Bowel pattern is normal. Soft tissues: No sign of free air. No sign of soft tissue mass. No suspicious calcifications. The lung bases are clear. Bones: Unremarkable for age. IMPRESSION: Unremarkable abdomen. Dictated by Melchor Dunham MD @ 08/28/2024 4:27:28 PM (Electronic Signature) US - abdomen: Attestation: I have reviewed the pertinent imaging results. My impression: Preliminary report per smt machine operator is negative right upper quadrant ultrasound. Radiologist's impression: Patient: DANDRE ALVARADO Facility:?[facility] Patient ID:?[id number] Site Patient ID:?[id number]. Site :?[id number] Study:?US-Abdomen limited-08/28/2024 4:55:25 PM Ordering Physician:?Leigh Ann Markham Final Report: INDICATION: Nausea, vomiting, and diarrhea. Mildly increased LFTs. Right-sided abdominal pain. COMPARISON: Same-day KUB TECHNIQUE: Sonographic evaluation of the right upper abdominal quadrant was performed utilizing ochoa-scale and color Doppler imaging techniques. FINDINGS: Technically challenging examination due to patient body habitus. Visualized portion of the pancreas is unremarkable. Visualized abdominal aorta is normal in caliber. Visualized IVC is patent. Smooth hepatic contour. Normal hepatic echogenicity. Hepatopetal flow within the main portal vein. No cholelithiasis. Normal thickness of the gallbladder wall. No pericholecystic fluid. Negative sonographic Tabor`s sign. Common bile duct measures 5 millimeters in diameter. Right kidney measures 11.5 centimeters. No right-sided hydronephrosis. IMPRESSION: No acute sonographic findings. Dictated by Steffen Mayers MD @ 08/28/2024 5:35:53 PM (Electronic Signature) Discharge Plan Discharge Clinical Impression: Gastroenteritis Patient Disposition: Home, Self-Care Condition: Stable Instructions: Acute Nausea and Vomiting (ED), Acute Diarrhea (ED), Nutrition Tips for Relief of Diarrhea (ED) Additional Instructions: Will send in a prescription of Reglan to be used to try to stop nausea and vomiting. Drink small frequent sips of clears for the next couple of days, can advance diet back to normal as you feel better. It is fine to try some Imodium at this point. Do recommend recheck with your primary care provider in clinic within the next 3-5 days if ongoing symptoms. C difficile was negative. Activity Level: Activity as Tolerated Prescriptions: New metoclopramide HCl 5 mg tablet 5 mg PO BID PRN (Reason: nausea and vomiting) Qty: 20 0RF No Action Fasenra Pen 30 mg/mL auto-injector 30 mg subcut Q8W albuterol sulfate 90 mcg/actuation HFA aerosol inhaler 2 puff inhalation Q4-6H PRN (Reason: shortness of breath or wheezing) Qty: 8.5 3RF montelukast 10 mg tablet 10 mg PO DAILY testosterone enanthate 200 mg/mL oil 70 mg subcut Q7D Rx Instructions: FRIDAYS ipratropium-albuterol 0.5 mg-3 mg(2.5 mg base)/3 mL solution for nebulization 3 ml inhalation Q6H PRNQty: 90 1RF ibuprofen dextroamphetamine-amphetamine 10 mg tablet 1 tab PO HS aripiprazole 15 mg tablet 15 mg PO DAILY dextroamphetamine-amphetamine 15 mg tablet 1 tab PO DAILY dextroamphetamine-amphetamine 10 mg capsule,extended release 24hr 1 cap PO BID Combivent Respimat 20-100 mcg/actuation mist 1 puff inhalation TID sertraline 100 mg tablet 200 mg PO DAILY fluticasone furoate-vilanterol [Breo Ellipta] 200-25 mcg/dose blister with de vice 1 ea inhalation DAILY levalbuterol tartrate 45 mcg/actuation HFA aerosol inhaler 2 puff INHALATION Q4H PRN (Reason: wheezing) trazodone 150 mg tablet 150 mg PO QPM Follow Up/Referrals: Shanthi Delgadillo MD [Primary Care Provider] - Stand Alone Forms: [employer] Info Instructions
[2024-08-28 15:25] LABS: Basophils Percent Auto 0.1 % (0.0-3.0); Hemoglobin* 18.5 gm/dL (12.0-16.0); Lactate* 1.6 mmol/L (0.5-1.9); Lymphocytes Percent Auto 25.1 % (20-44); Mean Corpuscular HGB Conc 34 gm/dL (32-36); Mean Corpuscular Hemoglobin 29 pg (26-34); Mean Corpuscular Volume 85 fL (80-100); Neutrophils Percent Auto 64.8 % (42.0-72.0); Platelet Count* 289 K/uL (140-440); RDW Coefficient of Variation % 12.6 % (11.5-15.5); Red Blood Count 6.33 m/uL (4.00-5.20); White Blood Count* 11.45 K/uL (4.50-11.00)
[2024-08-28 15:26] LABS: Slide Review Reflex No
[2024-08-28] MEDS: METOCLOPRAMIDE HCL 5 MG/ML INJ IVP (15:26)
[2024-08-28] MEDS: 0.9 % SODIUM CHLORIDE 500 ML 500 ML IV (15:26)
[2024-08-28 15:30] LABS: C.Difficile Negative (Negative); CDIFFEPI 027 PRESUMPTIVE NEGATIVE (Negative)
[2024-08-28 15:39] LABS: Albumin* 4.7 g/dL (3.3-5.0); Chloride* 104 mmol/L (96-114); Sodium* 139 mmol/L (135-149)
[2024-08-28 15:40] LABS: Potassium* 3.5 mmol/L (3.6-5.1)
[2024-08-28 15:42] LABS: Alkaline Phosphatase* 85 U/L (40-150); Anion Gap 9 mEq/L (7-15); Aspartate Amino Transferase* 42 U/L (12-35); Bilirubin Total* 2.1 mg/dL (0.1-1.5); Carbon Dioxide* 26 mmol/L (20-32); Creatinine* 0.9 mg/dL (0.5-1.5); Est. Creatinine Clearance* 90.23; Estimated Glomerular Filt Rate 92 ml/min; Total Protein* 8.2 g/dL (6.0-8.3)
[2024-08-28 15:43] LABS: Alanine Aminotransferase* 56 U/L (4-35); Blood Urea Nitrogen* 8 mg/dL (5-24); Calcium* 9.4 mg/dL (8.4-10.6); Glucose* 96 mg/dL (60-115)
--- NOTE | 2024-08-28 15:43 | CRLHL7_ITS ---
For Patients: As a result of the Century Cures Act, medical imaging exams and procedure reports are released immediately into your electronic medical record. You may view this report before your referring provider. If you have questions, please contact your health care provider. INDICATION: Nausea vomiting and diarrhea TECHNIQUE: Abdomen 2 view. COMPARISON: None FINDINGS: Bowel: Bowel pattern is normal. Soft tissues: No sign of free air. No sign of soft tissue mass. No suspicious calcifications. The lung bases are clear. Bones: Unremarkable for age. IMPRESSION: Unremarkable abdomen. Dictated by Melchor Dunham MD @ 08/28/2024 4:27:28 PM (Electronically Signed)
[2024-08-28 15:45] LABS: C Reactive Protein* 0.8 mg/dL (0.5-1.0)
--- NOTE | 2024-08-28 15:51 | CRLHL7_ITS ---
For Patients: As a result of the Century Cures Act, medical imaging exams and procedure reports are released immediately into your electronic medical record. You may view this report before your referring provider. If you have questions, please contact your health care provider. INDICATION: Nausea, vomiting, and diarrhea. Mildly increased LFTs. Right-sided abdominal pain. COMPARISON: Same-day KUB TECHNIQUE: Sonographic evaluation of the right upper abdominal quadrant was performed utilizing ochoa-scale and color Doppler imaging techniques. FINDINGS: Technically challenging examination due to patient body habitus. Visualized portion of the pancreas is unremarkable. Visualized abdominal aorta is normal in caliber. Visualized IVC is patent. Smooth hepatic contour. Normal hepatic echogenicity. Hepatopetal flow within the main portal vein. No cholelithiasis. Normal thickness of the gallbladder wall. No pericholecystic fluid. Negative sonographic Tabor`s sign. Common bile duct measures 5 millimeters in diameter. Right kidney measures 11.5 centimeters. No right-sided hydronephrosis. IMPRESSION: No acute sonographic findings. Dictated by Steffen Mayers MD @ 08/28/2024 5:35:53 PM (Electronically Signed)
[2024-09-01 21:16] LABS: Ova and Parasite, Fecal Negative (Negative)
== END 2024-08-28 17:11 | disposition home or self-care (01) ==
PROVIDERS: Emergency Provider Family Medicine; PCP Family Medicine
DX: K52.9 Noninfective gastroenteritis and colitis, unspecified (principal)
CPT/HCPCS: 36415; 74019; 76705; 80053; 83605; 85025; 86140; 87045; 87046; 87177; 87209; 87427; 87493; 94761; 96374; 99284; J2765; J7030

== ENCOUNTER 2024-08-29 06:56 | Outpatient (CLI) | payer MEDICARE, MEDICAID, SELFPAY | END 2024-08-29 06:57 | disposition home or self-care (01) | LOC: AMB 10-02 08:37 | PROVIDERS: PCP Family Medicine; Visit Provider Family Medicine | DX: F10.129 Alcohol abuse with intoxication, unspecified (principal); R11.10 Vomiting, unspecified | CPT/HCPCS: A0998 ==

== ENCOUNTER 2024-08-31 21:23 | Outpatient (CLI) | payer MEDICARE, MEDICAID, SELFPAY | END 2024-08-31 21:24 | disposition home or self-care (01) | PROVIDERS: PCP Family Medicine; Visit Provider Student in an Organized Health Care Education/Training Program | DX: R11.2 Nausea with vomiting, unspecified (principal) | CPT/HCPCS: A0998 ==

== ENCOUNTER 2024-09-30 20:45 | Emergency (ER) | payer MEDICARE, MEDICAID, SELFPAY ==
[2024-09-30] VITALS (8 sets, daily range): BP systolic 117–130; BP diastolic 65–92; PULSE 78–120; RESP 18–22; TEMP 36.9–37; O2SAT 92–98; BMI 28.2
--- OUTSIDE RECORDS SUMMARY | 2024-09-30 20:47 | XMS_ITS | Clinical Summary ---
[facility] Organization [facility] Address [address] [place] [address] Care Team Providers Care Tape Keller Operator Name Role Phone Mika Santos MD Primary Care Provider [phone] Source Comments You are receiving this document as you are listed as the primary care provider,follow-up provider, or the patient has been referred to you for consultation.This is in compliance with the Medicare and[facility] Incentive [facility],which states Providers who transition their patient to another setting of careor provider of care or refers their patient to another provider of care shouldprovide summary care record for each transition of care or referral. [facility] Allergies Active Allergy Reactions Criticality Noted Date Comments Ondansetron Nausea And Vomiting 04/11/2020 Medications Medication Sig Dispensed Refills Start Date End Date Status sertraline (ZOLOFT) 50 MG tablet Take 1 Tablet (50 mg) by mouth daily. Active sertraline (ZOLOFT) 100 MG tablet Take 1 Tablet (100 mg) by mouth daily. 01/28/2020 Active traZODone (DESYREL) 150 MG tablet Take 1 Tablet (150 mg) by mouth daily. 04/09/2020 Active sharps containerIndication s:Gender dysphoria Use to dispose of needles once a week. 1 Each 05/18/2020 Active ARIPiprazole (ABILIFY) 5 MG tablet 09/01/2020 Active ALBUterol sulfate HFA 108 (90 Base) MCG/ACT inhaler INHALE 1 TO 2 PUFFS EVERY 4 HOURS NEEDED FOR WHEEZING OR SHORTNESS OF BREATH. 18 Each 09/11/2021 Active NEEDLE, DISP, 18 G (MONOJECT HYPO 18GX1) 18G X 1Indications:Gende r dysphoria TO USE TO DRAW UP WEEKLY TESTOSTERONE INJECTION. 13 Each 07/05/2022 Active montelukast (SINGULAIR) 10 MG tablet Take 1 Tablet (10 mg) by mouth daily. 06/02/2022 Active methylphenidate (RITALIN LA) 30 MG 24 hour release capsule Take 1 Capsule (30 mg) by mouth every morning. 07/06/2022 Active fluticasone propionate (FLONASE) 50 MCG/ACT nasal solution Place into both nostrils. 08/01/2022 Active Syringe, Disposable, (BD TUBERCULIN SYRINGE) 1 MLIndications:Gende r dysphoria TO USE WITH WEEKLY TESTOSTERONE INJECTIONS. 25 Each 11 08/28/2022 Active NEEDLE, DISP, 25 G (BD DISP NEEDLES) 25G X 5/8Indications:Gen michael dysphoria Take 1 Each as instructed once a week. 25 Each 3 08/28/2022 Active COMBIVENT RESPIMAT 20-100 MCG/ACT inhaler 1 Puff three times a day. 07/21/2023 Active SYMBICORT 160-4.5 MCG/ACT inhaler Inhale 2 Puffs two times a day. 08/06/2023 Active testosterone cypionate (DEPO-TESTOSTERONE) 200 MG/ML injectionIndication s:Gender dysphoria Inject 0.35 mL (70 mg) intramuscularly once every week. 5 mL 12/12/2023 Active ipratropium-albuter ol (DUONEB) 0.5-2.5 (3) mg/3ml nebulizer solutionIndications :Moderate persistent asthma with acute exacerbation (HRC) INHALE 3 ML EVERY 4 HOURS NEEDED FOR WHEEZING 120 mL 4 12/19/2023 Active testosterone enanthate (DELATESTRYL) 200 MG/ML injectionIndication s:Gender dysphoria INJECT 0.35ML (70MG) SUBCUTANEOUSLY WEEKLY. STRENGTH: 200 MG/ML 5 mL 07/24/2024 Active Active Problems Problem Noted Date Diagnosed Date PTSD (post-traumatic stress disorder) 05/31/2022 Tobacco dependence 09/19/2020 Gender dysphoria 04/16/2020 TBI (traumatic brain injury) 04/11/2020 Overview (04/11/2020): x3 Attention deficit hyperactiv ity disorder (ADHD), combined type, moderate 02/04/2020 Anxiety disorder 02/04/2020 Moderate episode of recurrent major depressive d isorder 02/04/2020 Episodic mood disorder 09/04/2018 Encounters Date Type Department Care Team Description 07/23/2024 Refill [facility] [place] [address] [place] [address] Mika Santos MD Refill (testosterone enanthate (DELATESTRYL) 200 MG/ML injection [Pharmacy Med Name: TESTOSTERON ENAN 1,000 MG/5 ML]) from Last 3 Months Immunizations Name Administration Dates Next Due 4vHPV (Gardasil) 07/17/2013 9vHPV (Gardasil 9) 09/08/2019,07/17/2013 DTaP 06/15/2005, 5,08/28/2001,08/28,2000,2000,2000 ,2000,2000,2000 Flu Vac (3+ yrs) 06/03/2010,06/25/2009, 8 HepA Ped/Adol (1-18 yrs) 11/14/2011,07/07/2010 HepA, Unspecified Formulation 11/14/2011, 010 HepB Ped/Adol (0-18 yrs) 08/28/2001,2000,1 09/29/1999 HepB, Unspecified Formulation 08/28/2001, 001,2000 Hib (ActHIB) 08/28/2001,2000,2000 Hib/HBV 08/28/2001,2000,2000 IPV (Polio) 06/15/2005, 5,03/26/2001,03/26,2000,2000,2000 ,2000 Influenza IIV4 (Quadrivalent ) 0.5mL (36867) 07/20/2022,09/03/2020,09/04/2018(Defer red: Patient Refused),07/01/2018,07/01/2018, 017,05/30/2017,06/30/2016,06/30/2016,1 09/16/2012,07/17/2013,06/03/2010,2008,06/16/2008 Influenza, Unspecified Formulation 06/30,06/03/2010,06/25/2009,06/16 MCV4 (Menactra) 05/30/2017,05/30/2017,11/14/2011 MMR 06/15/2005, 5,05/28/2001,05/28 Meningococcal MCV4, Unspecif ied Formulation 11/14/2011 PCV20 ([id number]) 07/20/2022 PPSV23 (Pneumovax) 09/03/2020 Pfizer Bivalent 12+ 07/20/2022 Pfizer Monovalent 12+ Purple Top 01/12/2021,0404/2021 Pneumococcal 7, PED 08/28/2001, 2,2000,11/25,2000,2000,2000 ,2000 Tdap 06/24/2016, 6,11/14/2011,11/13 Varicella 07/07/2010, 0,05/28/2001,05/28 Family History Medical History Relation Name Comments Anxiety Father Depression Father Anxiety Mother Depression Mother Anxiety Brother Depression Brother Dementia Maternal Grandfather Stroke Maternal Grandfather Anxiety Maternal Grandmother Cancer, Breast Maternal Grandmother Cancer, Colon Maternal Grandmother Depression Maternal Grandmother Diabetes Maternal Grandmother Heart Disease Maternal Grandmother High Cholesterol Maternal Grandmother Hypertension Maternal Grandmother Heart Disease Paternal Grandfather Anxiety Paternal Grandmother Relation Name Status Comments Father Alive Mother Alive Brother Alive Maternal Grandfather Alive Maternal Grandmother Alive Paternal Grandfather Alive Paternal Grandmother Alive Social History Tobacco Use Types Packs/Day Years Used Date Smoking Tobacco: Former Cigarettes Q uit: 05/24/2021 Smokeless Tobacco: Never Tobacco Cessation:Counseling Given: Not Answered Comments:1-2 cigarettes per day Alcohol Use Standard Drinks/Week Comments Never 0 (1 standard drink = 0.6 oz pur e alcohol) AUDIT-C Answer Date Recorded Q1: How often do you have a drink containing alc ohol? Never 06/22/2020 Average Number of Drinks Not on file 020 Frequency of Binge Drinking Not on file 05/27 PHQ-2 Answer Date Recorded PHQ-2 Score 3 08/08/2023 Sex and Gender Information Value Date Recorded Sex Assigned at Female 04/11/2020 10:11 AM CDT Gender Identity Male 04/11/2020 10:11 AM CDT Sexual Orientation Straight 04/11/2020 10 :11 AM CDT Last Filed Vital Signs Vital Sign Reading Time Taken Comments Blood Pressure 112/72 08/08/2023 9:43 AM ACCOUNT MANAGER RELIEF Pulse 70 08/08/2023 9:43 AM ACCOUNT MANAGER RELIEF Temperature 36.6 C (97.8 F) 08/08/2023 9:43 AM ACCOUNT MANAGER RELIEF Respiratory Rate 16 06/15/2021 11:32 AM CDT Oxygen Saturation 91% 06/15/2021 12:00 PM CDT Inhaled Oxygen Concentration - - Weight 84.8 kg (187 lb) 08/08/2023 9:43 AM ACCOUNT MANAGER RELIEF Height 167 cm (5' 5.75) 08/28/2022 9:06 AM ACCOUNT MANAGER RELIEF Body Mass Index 30.41 08/28/2022 9:06 AM ACCOUNT MANAGER RELIEF Plan of Treatment Health Maintenance Due Date Last Done Comments Cervical Cancer Screening Due 2000 Hep C Screening (Preventive Services) 2000 Medicare Annual Wellness Visit 2000 Asthma ACT (score of 20 or higher) 2004 HIV Screening (Preventive Services) 2016 Asthma AMP 19-50 yo 2019 Chlamydia 08/30/2023 08/30/2022, 01/0 12/2022, 07/01/2018 COVID-19 Vaccine ( season) 2024 07/20/2022, 01/12/2021, 12/22/2020 Influenza (#1) 2024 07/20/2022, 01/0 04/2021, 07/01/2018, Additional history exists DTaP/Tdap/Td (10 - Tdap) 06/24/2026 016, 06/24/2016, 11/14/2011, Additional history exists Zoster/Shingles (1 of 2) 2050 HepB Completed 08/28/2001, 10/2001, 08/28/2001, Additional history exists Hib Completed 08/28/2001, 10/2001, 2000, Additional history exists IPV (Polio) Completed 06/15/2005, 05/27, 03/26/2001, Additional history exists Varicella Completed 07/07/2010, 06/26, 05/28/2001, Additional history exists HepA Completed 11/14/2011, 10/25, 07/07/2010, Additional history exists MCV4 Completed 05/30/2017, 12/2016, 11/14/2011, Additional history exists HPV Vaccine Completed 09/08/2019, 06/27, 07/17/2013 Pneumococcal Aged Out 07/20/2022, 04/2021, 08/28/2001, Additional history exists No longer eligible based on patient's age to complete this topic Advance Directives * Full Code (Latest Code Status on File) Date Activated Date Inactivated Comments 06/15/2021 11:11 AM 06/15/2021 3:25 PM * Full Code Date Activated Date Inactivated Comments 09/03/2018 11:50 PM 09/05/2018 6:26 PM Care Teams Tape Keller Operator Relationship Specialty Start Date End Date Mika Santos MD [address] [place] [address] PCP - General 01/15/22
--- OUTSIDE RECORDS SUMMARY | 2024-09-30 20:47 | XMS_ITS | Clinical Summary ---
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 Thousand/u L [facility] MPV 10.2 7.5 - 12.5 fL [facility] ABSOLUTE NEUTROPHILS 6,208 1,500 - 7,800 cells/uL [facility] ABSOLUTE LYMPHOCYTES 2,328 850 - 3,900 cells/uL [facility] ABSOLUTE MONOCYTES 1,135(H) 200 - 950 cells/uL [facility] ABSOLUTE EOSINOPHILS 0(L) 15 - 500 cells/uL [facility] ABSOLUTE BASOPHILS 29 0 - 200 cells/uL [facility] NEUTROPHILS 64 % [facility] LYMPHOCYTES 24.0 % [facility] MONOCYTES 11.7 % [facility] EOSINOPHILS 0.0 % [facility] BASOPHILS 0.3 % [facility] Blood BLOOD SPECIMEN / Unknown 08/31/2024 4:58 PM AUCTION BLOCK CLERK 08/31/2024 4:59 PM AUCTION BLOCK CLERK us Shanthi Delgadillo MD HEMATOLOGY Final Resul t [facility] [address] [place] [address], [facility] [address] [place] [address] * (ABNORMAL) COMP METABOLIC PANEL (08/31/2024 4:58 PM AUCTION BLOCK CLERK) GLUCOSE 78 65 - 99 mg/dL [facility] Comment: Fasting reference interval UREA NITROGEN (BUN) 9 7 - 25 mg/dL [facility] CREATININE 1.00 0.60 - 1.24 mg/dL [facility] EGFR 108 > OR = 60 mL/min/1. 73m2 [facility] BUN/CREATININE RATIO SEE NOTE: 6 - 22 (calc) [facility] Comment: Not Reported: BUN and Creatinine are within reference range. SODIUM 138 135 - 146 mmol/L [facility] POTASSIUM 3.6 3.5 - 5.3 mmol/L [facility] CHLORIDE 103 98 - 110 mmol/L [facility] CARBON DIOXIDE 24 20 - 32 mmol/L [facility] CALCIUM 9.3 8.6 - 10.3 mg/dL [facility] PROTEIN, TOTAL 7.0 6.1 - 8.1 g/dL [facility] ALBUMIN 4.3 3.6 - 5.1 g/dL [facility] GLOBULIN 2.7 1.9 - 3.7 g/dL (calc) [facility] ALBUMIN/GLOBULIN RATIO 1.6 1.0 - 2.5 (calc) [facility] BILIRUBIN, TOTAL 1.7(H) 0.2 - 1.2 mg/dL [facility] ALKALINE PHOSPHATASE 73 36 - 130 U/L [facility] AST 50(H) 10 - 40 U/L [facility] ALT 53(H) 9 - 46 U/L [facility] Blood BLOOD SPECIMEN / Unknown 08/31/2024 4:58 PM AUCTION BLOCK CLERK 08/31/2024 4:59 PM AUCTION BLOCK CLERK Shanthi Delgadillo MD CHEMISTRY Final Resul t [facility] [address] [place] [address], [facility] [address] [place] [address] * SCAN-RADIOLOGY REPORT (08/28/2024 12:00 AM AUCTION BLOCK CLERK) Only the most recent of3 resultswithin the time period is included. Anatomical Region Laterality Modality Other us Scanner OTHER Final Result * LC HIV-1/O/2, 4TH GENERATION (08/30/2022 8:33 AM AUCTION BLOCK CLERK) Pathologist [facility] HIV Scr 4th Gen Non Reactive Non Reactive 09/04/2022 4:07 PM AUCTION BLOCK CLERK [facility] Comment: HIV Negative HIV-1/HIV-2 antibodies and HIV-1 p24 antigen were NOT detected. There is no laboratory evidence of HIV infection. Blood BLOOD SPECIMEN / Unknown Venipuncture / Unknown 08/30/2022 8:33 AM AUCTION BLOCK CLERK 08/30/2022 8:43 AM AUCTION BLOCK CLERK Narrative [facility]) - 09/04/2022 4:07 PM AUCTION BLOCK CLERK Performed at: [address] [place] [address] [facility] [address] [place] [id number] Marketing Content Coordinator: Kostas Aguilar MD, Phone: [phone] Shanthi Delgadillo MD LABORATORY Final Resul t [facility]) [address] [place] [address] * GC CHLAMYDIA TRACH PROBE [[id number]] (08/30/2022 8:12 AM AUCTION BLOCK CLERK) Pathologist [facility] CHLAMYDIA PROBE Negative 1:43 AM AUCTION BLOCK CLERK [facility] N GONORRHOEAE PROBE Negative 08/31/2022 1:43 AM AUCTION BLOCK CLERK [facility] Other ENDOCERVICAL CYTOLOGIC MATERIAL / Unknown Non-Blood / Unknown 08/30/2022 8:12 AM AUCTION BLOCK CLERK 08/30/2022 8:31 AM AUCTION BLOCK CLERK Shanthi Delgadillo MD MICROBIOLOGY Final Resul t [facility] [address] [place] [address], [place] from Last 3 Months or Most Recently Relevant to Health Maintenance Insurance MEDICAID MEDICARE PB ONLY MEDICARE PART B HB ONLY MEDICARE PART A HB ONLY [facility] Advance Directives * Full Code (Latest Code Status on File) Date Activated Date Inactivated Comments 09/16/2015 11:02 PM 09/21/2015 6:53 PM Care Teams Lav Crewman Relationship Specialty [place] [address] [place] [address] PCP - General 10/22/18 Liya No FISH HATCHERY SUPERVISOR 12/31/17 Capo Busby MD [address] [address] Pulmonology Pulmonary Medicine 02/07/23
--- NOTE | 2024-09-30 21:17 | ED.GENADULT ---
HPI - General Adult General Chief complaint: Cough Stated complaint: wheezing, difficulty breathing Time Seen by Provider: 09/30/24 21:17 History of Present Illness HPI narrative: Wheezing, headache and some difficulty breathing On prednisone was put on last week on 7th day tylenol 1800 albuterol neb about 30 mins ago 24-year-old transgender man presenting to emergency department with concern of shortness of breath and difficulty breathing. Complicated reactive airway/asthma history. Is now about to start 20 mg daily of prednisone it sounds like. Has been tapering. Primary reason for visit is just concern of persistent tightness. Just feels like he is just getting overall worse can not seem to get over this. No fever lately but was feeling febrile when seen 6 days ago. Was given a tapering course of prednisone and also benzonatate. Tested negative at that time for COVID and influenza. Struggling little bit more over the last 3 days again. Is not worse today than was yesterday. This all just been lingering prompting a visit to the emergency department. Has been using what sound like DuoNebs 5 times daily has only nebulized treatment, otherwise dosing Combivent as well Breo Ellipta, levalbuterol and/or inhalation, montelukast. Due for scheduled Fasenra next week? Does have a water and sewer systems superintendent. Due to see them on the . No longer vapes. Uses pouches Related Data Home Medications ?Medication ?Instructions ?Recorded ?Confirmed montelukast 10 mg tablet 10 mg PO DAILY 04/02/22 09/30/24 testosterone enanthate 200 mg/mL 70 mg subcut Q7D 04/02/22 09/30/24 intramuscular oil benralizumab 30 mg/mL subcutaneous 30 mg subcut Q8W 02/09/24 09/30/24 auto-injector (Fasenra Pen) ibuprofen 08/15/24 09/24/24 aripiprazole 15 mg tablet 15 mg PO DAILY 08/16/24 09/30/24 dextroamphetamine-amphetamine 10 1 tab PO HS 08/16/24 09/30/24 mg tablet dextroamphetamine-amphetamine 15 1 tab PO DAILY 08/16/24 09/30/24 mg tablet dextroamphetamine-amphetamine ER 1 cap PO BID 08/16/24 09/30/24 10 mg 24hr capsule,extend release fluticasone furoate 200 1 ea inhalation DAILY 08/16/24 09/30/24 mcg-vilanterol 25 mcg/dose inhalation powder (Breo Ellipta) ipratropium 20 mcg-albuterol 100 1 puff inhalation TID 08/16/24 09/30/24 mcg/actuation mist for inhalation (Combivent Respimat) levalbuterol tartrate 45 2 puff inhalation Q4H PRN wheezing 08/16/24 09/30/24 mcg/actuation aerosol inhaler sertraline 100 mg tablet 200 mg PO DAILY 08/16/24 09/30/24 trazodone 150 mg tablet 150 mg PO QPM 08/28/24 09/30/24 Previous Rx's ?Medication ?Instructions ?Recorded ipratropium 0.5 mg-albuterol 3 mg 3 ml inhalation Q6H PRN #90 mL 06/09/22 (2.5 mg base)/3 mL nebulization soln albuterol sulfate 90 mcg/actuation 2 puff inhalation Q4-6H PRN 09/08/23 aerosol inhaler shortness of breath or wheezing #8.5 grams benzonatate 100 mg capsule 100 - 200 mg (1 - 2 x 100 mg) PO 09/24/24 BID PRN cough #20 caps prednisone 10 mg tablet 10 mg PO DIRECTED #30 tabs 09/24/24 Allergies Allergy/AdvReac Type Severity Reaction Status Date / Time ondansetron (From Zofran) AdvReac Mild Vomiting Verified 09/30/24 20:55 Review of Systems Status of ROS: Reports: 6 or more systems reviewed and unremarkable except as noted in History and below [facility] Medical History Hypokalemia ?E87.6 - Hypokalemia (ICD-10) Vapes nicotine containing substance ?Z72.0 - Tobacco use (ICD-10) Moderate episode of recurrent major depressive disorder ?F33.1 - Major depressive disorder, recurrent, moderate (ICD-10) Fracture of occipital bone with loss of consciousness ?S02.119A - Unspecified fracture of occiput, initial encounter for closed fracture (ICD-10) ?S06.9X9A - Unspecified intracranial injury with loss of consciousness of unspecified duration, initial encounter (ICD-10) Disruptive mood dysregulation disorder ?F34.81 - Disruptive mood dysregulation disorder (ICD-10) Suicidal ideation (10/04/15) ?R45.851 - Suicidal ideations (ICD-10) 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) ?F06.30 - Mood disorder due to known physiological condition, unspecified (ICD-10) ?S06.9XAS - Unspecified intracranial injury with loss of consciousness status unknown, sequela (ICD-10) Colitis due to Clostridium difficile ?A04.72 - Enterocolitis due to Clostridium difficile, not specified as recurrent (ICD-10) ADHD ?F90.9 - Attention-deficit hyperactivity disorder, unspecified type (ICD-10) Depression ?F32.A - Depression, unspecified (ICD-10) Anxiety ?F41.9 - Anxiety disorder, unspecified (ICD-10) Breast removal, prophylactic ?Z40.01 - Encounter for prophylactic removal of breast (ICD-10) Traumatic brain injury ?S06.9XAA - Unspecified intracranial injury with loss of consciousness status unknown, initial encounter (ICD-10) Surgical History S/P mastectomy, bilateral (~04/2021) ?Z90.13 - Acquired absence of bilateral breasts and nipples (ICD-10) [place] teeth removed ?K08.409 - Partial loss of teeth, unspecified cause, unspecified class (ICD-10) Family History Maternal Grandmother Breast cancer Depression Heart disease Paternal Grandfather Heart disease Thyroid cancer Social History Narrative: Unemployed. Quit smoking cigarettes in 2017, Vapes. Rare alcohol use. Frequent marijuana use. Admitted to nurse that he has done fentanyl and crushed and snorted his Adderall in the past week. What is your current living situation?: I presently have a place to live Problems where you live: no known problems Problems where you live details: n/a In the past 12 months, utilities in danger of being shut off: no In past 12 months, lack of transportation kept you from medical appts, meetings, work, or getting things needed for daily living: no In the past 12 mos, have been you worried that your food would run out before you had money to buy more?: never true In the past 12 mos, the food you bought just didn't last and you didn't have money to buy more?: never true Highest level of school completed/degree received: high school graduate Smoking Status: Former smoker Do you use any of these nicotine containing products: E-Cigarettes and Vaping Products Nicotine containing products detail: Frequently Vapes Second hand tobacco smoke exposure: No How often do you have a drink containing alcohol: monthly or less How many standard drinks containing alcohol do you have on a typical day: 1 or 2 How often do you have six or more drinks on one occasion: Never AUDIT-C Alcohol total score: 1 Non-prescribed substance use: marijuana (any form) Non-prescribed substance use details: medical marijuana card Caffeine: No (Rarely) How often does anyone, including family, friends and others, physically hurt you: never How often does anyone, including family, friends and others, insult or talk down to you: rarely How often does anyone, including family, friends and others, threaten you with harm: never How often does anyone, including family, friends and others, scream or curse at you: rarely Do you think of yourself as: straight/heterosexual Gender Identity: male service: No Health Related Social Needs: Other personal risk factors, not elsewhere classified (Z91.89) Exam Narrative: Exam Narrative: Satting 95-96% during our conversation. Very laryngitic. Has good energy. Pleasant. Engaged in conversation. Mildly labored in breathing but not tachypneic. Heart is tachycardic. Oropharynx is unremarkable. Neck is supple without lymphadenopathy. Lungs with diffuse trace crepitus and faint end expiratory wheeze, prolonged expiratory phase. Well-perfused peripherally. No edema. Const: Vital Signs, click to edit/add: Vital Signs - 24 hr 09/30/24 20:48 09/30/24 21:01 09/30/24 21:01 Temperature 98.6 F Pulse Rate 107 H Pulse Rate [Pulse Oximeter] 120 H Respiratory Rate 22 20 Blood Pressure 118/92 H Blood Pressure [Ri ght Upper Arm] 122/78 Pulse Oximetry 97 97 95 Oxygen Delivery Me thod Room Air 09/30/24 21:02 09/30/24 22:01 09/30/24 22:28 Temperature Pulse Rate 105 H 85 78 Pulse Rate [Pulse Oximeter] Respiratory Rate 20 20 20 Blood Pressure 130/86 125/65 117/83 Blood Pressure [Ri ght Upper Arm] Pulse Oximetry 96 92 94 Oxygen Delivery Me thod 09/30/24 22:29 09/30/24 23:01 09/30/24 23:28 Temperature 98.5 F 98.5 F Pulse Rate 95 Pulse Rate [Pulse Oximeter] 86 86 Respiratory Rate 18 20 20 Blood Pressure 120/76 Blood Pressure [Ri ght Upper Arm] 117/83 117/83 Pulse Oximetry 98 92 Oxygen Delivery Me thod Room Air Documenting provider has reviewed patient's vital signs: yes Course Vital Signs Vital signs: Initial Vital Signs Temperature 98.6 F 09/30/24 20:48 Temperature Source Temporal Artery Scan 09/30/24 20:48 Pulse Rate 120 H 09/30/24 20:48 Pulse Rhythm Regular 09/30/24 20:48 Respiratory Rate 22 09/30/24 20:48 Blood Pressure 122/78 09/30/24 20:48 Blood Pressure Mean 92 09/30/24 20:48 Blood Pressure Position Sitting 09/30/24 20:48 Pulse Oximetry 97 09/30/24 20:48 Oxygen Delivery Method Room Air 09/30/24 20:48 Vital Signs Temperature 98.6 F 09/30/24 20:48 Pulse Rate 120 H 09/30/24 20:48 Respiratory Rate 22 09/30/24 20:48 Blood Pressure 122/78 09/30/24 20:48 Pulse Oximetry 97 09/30/24 20:48 Oxygen Delivery Method Room Air 09/30/24 20:48 Temperature 98.5 F 09/30/24 23:28 Pulse Rate 86 09/30/24 23:28 Respiratory Rate 20 09/30/24 23:28 Blood Pressure 117/83 09/30/24 23:28 Pulse Oximetry 92 09/30/24 23:01 Oxygen Delivery Method Room Air 09/30/24 22:29 Medications Administered Medications: Discontinued Medications Generic Name Dose Route Start Last Admin Trade Name Freq PRN Reason Stop Dose Admin Albuterol 2.5 mg 09/30/24 22:18 09/30/24 22:27 Albuterol Sulfate 2.5 Mg/3 Ml Vial.Neb NEB 09/30/24 22:19 2.5 mg ONCE ONE Administration Epinephrine 0.5 ml 09/30/24 21:27 09/30/24 21:38 Racepinephrine Hcl 0.5 Ml Vial.Neb NEB 09/30/24 21:28 0.5 ml ONCE ONE Administration Medical Decision Making MDM Narrative Medical decision making narrative: Pulmonary management here I think is a challenge. Has been admitted here with exacerbations and received magnesium in the emergency department. Even dosing Fasenra. Is receiving probably too many dosings per day of beta agonist and certainly ipratropium bromide equivalent. Monitor oximetry here. Check for secondary pneumonia and recheck swabs for COVID influenza and RSV. Doubtful pulmonary embolus. Considering laryngitis we did trial a racemic epi neb. Did not really change symptoms. Reported some burning in his chest. Chest x-ray independently reviewed by me looks to be without infiltrate. Subsequently given an albuterol nebulization. Also with minimal change. Maintained reasonable oxygenation around 94% during conversations on room air. Do not think requires hospitalization. No longer tachycardic. Swabs are negative. Would like to make available albuterol nebulizations alone. Try to restrict somewhat DuoNeb/Combivent/ipratropium bromide intake. Boost prednisone dosing. Perhaps worsening a little bit with lower dosing. Worsening does correlate with decreased taper though not by much. Considered antibiotics but expresses concern of Clostridium difficile. Furthermore do not see pneumonia and chest x-ray but antibiotic might be beneficial. Needs close follow-up with his water and sewer systems superintendent. See patient discharge plan for further discussion Does not appear that you have albuterol nebulizations. You seem to be using DuoNebs instead. I would like you to use your DuoNebs scheduled 3-4 times daily over the next 4 days. Can use an albuterol nebulization or inhalers in between for breakthrough. Shouldn't more than 9 dosings of albuterol, whether nebulization or a dosing of 2 puffs on your inhaler, in a 24 hour day. Your treatment has become a little complicated. Please message your water and sewer systems superintendent and let them know that you are having trouble getting over this latest flare that seem to have started with a febrile illness. I understand that you might not want to take an antibiotic given history of C diff. Chest x-ray does not appear to show pneumonia here today anyway. I would encourage you to continue to avoid smoking or inhaling substances other than those prescribed to you for your lungs. Prescribing albuterol nebulizations and prednisone from [facility]. Discuss the dosing of prednisone with your water and sewer systems superintendent and the potential need for taper. Going back up to 40 mg daily of prednisone. Medical Records Medical records reviewed: Yes I reviewed the patient's medical records Lab Data Lab results reviewed: Yes I reviewed the patient's lab results Labs: Lab Results 09/30/24 Range/Units 20:59 SARS-CoV-2 (PCR) Negative SARS-CoV-2 (Negative) Influenza Type A (PCR) Negative PCR FLU A (Negative) Influenza Type B (PCR) Negative PCR FLU B (Negative) RSV (PCR) Negative PCR RSV (Negative) Discharge Plan Discharge Clinical Impression: Asthma exacerbation Patient Disposition: Home, Self-Care Condition: Stable Additional Instructions: Does not appear that you have albuterol nebulizations. You seem to be using DuoNebs instead. I would like you to use your DuoNebs scheduled 3-4 times daily over the next 4 days. Can use an albuterol nebulization or inhalers in between for breakthrough. Shouldn't more than 9 dosings of albuterol, whether nebulization or a dosing of 2 puffs on your inhaler, in a 24 hour day. Your treatment has become a little complicated. Please message your water and sewer systems superintendent and let them know that you are having trouble getting over this latest flare that seem to have started with a febrile illness. I understand that you might not want to take an antibiotic given history of C diff. Chest x-ray does not appear to show pneumonia here today anyway. I would encourage you to continue to avoid smoking or inhaling substances other than those prescribed to you for your lungs. Prescribing albuterol nebulizations and prednisone from [facility]. Discuss the dosing of prednisone with your water and sewer systems superintendent and the potential need for taper. Going back up to 40 mg daily of prednisone. Prescriptions: No Action Fasenra Pen 30 mg/mL auto-injector 30 mg subcut Q8W prednisone 10 mg tablet 10 mg PO DIRECTED Qty: 30 0RF Rx Instructions: Take four (4) tablets by mouth on days 1-3. Take three (3) tablets by mouth on days 4-6. Take two (2) tablets by mouth on days 7-9. Take one (1) tablet by mouth on days 10-12. benzonatate 100 mg capsule 100 - 200 mg PO BID PRN (Reason: cough) Qty: 20 0RF albuterol sulfate 90 mcg/actuation HFA aerosol inhaler 2 puff inhalation Q4-6H PRN (Reason: shortness of breath or wheezing) Qty: 8.5 3RF montelukast 10 mg tablet 10 mg PO DAILY testosterone enanthate 200 mg/mL oil 70 mg subcut Q7D Rx Instructions: FRIDAYS ipratropium-albuterol 0.5 mg-3 mg(2.5 mg base)/3 mL solution for nebulization 3 ml inhalation Q6H PRNQty: 90 1RF ibuprofen dextroamphetamine-amphetamine 10 mg tablet 1 tab PO HS aripiprazole 15 mg tablet 15 mg PO DAILY dextroamphetamine-amphetamine 15 mg tablet 1 tab PO DAILY dextroamphetamine-amphetamine 10 mg capsule,extended release 24hr 1 cap PO BID Combivent Respimat 20-100 mcg/actuation mist 1 puff inhalation TID sertraline 100 mg tablet 200 mg PO DAILY fluticasone furoate-vilanterol [Breo Ellipta] 200-25 mcg/dose blister with device 1 ea inhalation DAILY levalbuterol tartrate 45 mcg/actuation HFA aerosol inhaler 2 puff INHALATION Q4H PRN (Reason: wheezing) trazodone 150 mg tablet 150 mg PO QPM Follow Up/Referrals: Shanthi Delgadillo MD [Primary Care Provider] - Stand Alone Forms: [employer] Info Instructions
[2024-09-30] MEDS: RACEPINEPHRINE HCL 0.5 ML VIAL.NEB NEB (21:38)
--- OUTSIDE RECORDS SUMMARY | 2024-09-30 21:38 | XMS_ITS | Clinical Summary ---
Author Organization [facility] Address [address] [place] [address] Care Team Providers Care Slip Cover Seamstress Name Role Phone Mika Santos MD Primary Care Provider [phone] Source Comments You are receiving this document as you are listed as the primary care provider,follow-up provider, or the patient has been referred to you for consultation.This is in compliance with the Medicare and[facility] Hospital[facility] EHR Incentive Program,which states Providers who transition their patient to another setting of careor provider of care or refers their patient to another provider of care shouldprovide summary care record for each transition of care or referral. [facility] [employer] Allergies Active Allergy Reactions Criticality Noted Date [...] Type Department Care Team Description 07/23/2024 Refill [facility] [place] [address] [email or web address] [address] Mika Santos MD Refill (testosterone enanthate (DELATESTRYL) [...] 5,03/26/2001,03/26,2000,2000,2000 ,2000 Influenza IIV4 (Quadrivalent ) 0.5mL (16454) 07/20/2022,09/03/2020,09/04/2018(Defer red: Patient Refused),07/01/2018,07/01/2018, 017,05/30/2017,06/30/2016,06/30/2016,1 09/16/2012,07/17/2013,06/03/2010,2008,06/16/2008 Influenza, Unspecified Formulation 06/30,06/03/2010,06/25/2009,06/16 MCV4 (Menactra) 05/30/2017,05/30/2017,11/14/2011 MMR 06/15/2005, 5,05/28/2001,05/28 Meningococcal MCV4, Unspecif ied Formulation 11/14/2011 PCV20 ([id number]) 07/20/2022 PPSV23 (Pneumovax) 09/03/2020 Pfizer Bivalent 12+ [...] Comments Blood Pressure 112/72 08/08/2023 9:43 AM PUTTY REMOVER Pulse 70 08/08/2023 9:43 AM PUTTY REMOVER Temperature 36.6 C (97.8 F) 08/08/2023 9:43 AM PUTTY REMOVER Respiratory Rate 16 06/15/2021 11:32 AM CDT Oxygen Saturation 91% 06/15/2021 12:00 PM CDT Inhaled Oxygen Concentration - - Weight 84.8 kg (187 lb) 08/08/2023 9:43 AM PUTTY REMOVER Height 167 cm (5' 5.75) 08/28/2022 9:06 AM PUTTY REMOVER Body Mass Index 30.41 08/28/2022 9:06 AM PUTTY REMOVER Plan of Treatment Health Maintenance Due Date [...] 11:50 PM 09/05/2018 6:26 PM Care Teams Slip Cover Seamstress Relationship Specialty Start Date End Date Mika Santos MD [address] [place] [address] PCP - General 01/15/22
--- OUTSIDE RECORDS SUMMARY | 2024-09-30 21:38 | XMS_ITS | Clinical Summary ---
Author Organization [employer] [facility] Address [place], [place] [address] Care Team Providers Care Financial Services Sales Representative Name Role Phone Liya No NP Unavailable Unavailable Mitra House MD Primary Care Provider [phone] Capo Busby MD Unavailable [phone] Allergies Active Allergy Reactions Criticality Noted Date [...] 0.25 ML SUBCUTANEOUSLY WEEKLY Active BD Disposable Burt 25 gauge x 5/8 ndle TO INJECT TESTOSTERONE TWICE WEEKLY Active Tuberculin Syringe 1cc 1 mL syrg TO USE WITH WEEKLY TESTOSTERONE INJECTIONS. 022 Active Monoject Hypodermic Polypropyl 18 gauge x 1 ndleIndications :Oeycus-em-qwxv transgender person As directed. TO USE TO [...] x3 Anxiety disorder 02/04/2020 Marijuana use 09/08/2019 Tplfrk-df-tkhp transgender person 03/10/2018 Moderate episode of recurrent [...] Type Department Care Team Description 09/07/2024 [facility]ill [facility] [address] [place] [address] Vika Stovall MD Refill Request (Fluticasone (50 Mcg Per Actuation) Nasal) 09/02/2024 12:30 PM ASSOCIATE THEATRE PROFESSOR Telemedicine [facility] [address] [place] [address] Capo Busby MD 09/02/2024 Telephone [facility] [address] [place] [address] Capo Busby MD Appointment (Needs f/u in [facility] in September) 09/01/2024 9:30 AM ASSOCIATE THEATRE PROFESSOR Ancillary Procedure [facility] [address] [place] [address] 08/31/2024 4:00 PM ASSOCIATE THEATRE PROFESSOR Orders Only [facility] [address] [place] [address] Lab, [place] [facility] 08/31/2024 3:35 PM ASSOCIATE THEATRE PROFESSOR Office Visit [facility] [address] [place] [address] Shanthi Delgadillo MD Concerns (Discuss rehab) 08/31/2024 Travel 08/30/2024 Travel 08/28/2024 Orders Only [facility] Scanner 1 scan: (1-Ord) [facility], XR ABDOMEN, 08/28/2024 08/28/2024 Nurse Triage [facility] [address] [place] [address] Shanthi Delgadillo MD Melena 08/16/2024 Orders Only [facility] Scanner 1 scan: (1-Ord) [facility], XR CHEST 1V PORTABLE, 08/16/2024 08/15/2024 Orders Only [facility] Scanner 1 scan: (1-Ord) [facility], XR CHEST 2V, 08/15/2024 07/30/2024 1:00 PM ASSOCIATE THEATRE PROFESSOR Office Visit [facility] [address] [place] [address] Capo Busby MD Follow Up (Asthma) 07/30/2024 [...] Comments Blood Pressure 119/81 08/31/2024 3:41 PM ASSOCIATE THEATRE PROFESSOR Pulse 94 08/31/2024 3:41 PM ASSOCIATE THEATRE PROFESSOR Temperature 36.3 C (97.4 F) 10/01/2022 8:25 AM ASSOCIATE THEATRE PROFESSOR Respiratory Rate 18 07/30/2024 1:08 PM ASSOCIATE THEATRE PROFESSOR Oxygen Saturation 96% 08/31/2024 3:41 PM ASSOCIATE THEATRE PROFESSOR Inhaled Oxygen Concentration - - Weight 81.2 kg (179 lb) 08/31/2024 3:41 PM ASSOCIATE THEATRE PROFESSOR Height 167.6 cm (5' 6) 07/30/2024 1:08 PM ASSOCIATE THEATRE PROFESSOR Body Mass Index 28.89 07/30/2024 1:08 PM ASSOCIATE THEATRE PROFESSOR Plan of Treatment Upcoming Encounters Date Type Department Care Team (Late st Contact Info) Description 10/22/2024 3:00 PM ASSOCIATE THEATRE PROFESSOR Office Visit [facility] [address] [place] [address] Capo Busby MD [address] [id number] Health Maintenance Due Date Last Done Comments [...] ANTI HCV Add On 09/02/2024 3:18 PM ASSOCIATE THEATRE PROFESSOR Transaminitis Elevated bilirubin IGM ANTI-HBC Add On 09/02/2024 3:18 PM ASSOCIATE THEATRE PROFESSOR Transaminitis Elevated bilirubin HBSAG (HBS) Add On 09/02/2024 3:18 PM ASSOCIATE THEATRE PROFESSOR Transaminitis Elevated bilirubin Encounter for screening for other viral diseases ANTI HBS QUANT AHS Add On 09/02/2024 3: 18 PM ASSOCIATE THEATRE PROFESSOR Transaminitis Elevated bilirubin Encounter for screening for other viral diseases ANTI HAV TOTAL Add On 09/02/2024 3:18 PM ASSOCIATE THEATRE PROFESSOR Transaminitis Elevated bilirubin CRYPTOSPORIDIUM GIARDIA RAPID ANTIGEN Routine 09/01/2024 10:20 AM ASSOCIATE THEATRE PROFESSOR Acute diarrhea CLOSTRIDIOIDES DIFFICILE TOXIN PCR Routine 09/01/2024 10:20 AM ASSOCIATE THEATRE PROFESSOR Acute diarrhea STOOL PATHOGEN MULTIPLEX PCR PANEL Routine 09/01/2024 10:14 AM ASSOCIATE THEATRE PROFESSOR Acute diarrhea CT ABDOMEN PELVIS W CHERIE 09/01/2024 1 0:07 AM ASSOCIATE THEATRE PROFESSOR Abdominal pain, RLQ (right lower quadrant) CBC WITH AUTO DIFFERENTIAL Routine 08/31/2024 4:58 PM ASSOCIATE THEATRE PROFESSOR Abdominal pain, RLQ (right lower quadrant) COMP METABOLIC PANEL Routine 08/31/2024 4:58 PM ASSOCIATE THEATRE PROFESSOR Abdominal pain, RLQ (right lower quadrant) SCAN-RADIOLOGY REPORT 08/28/2024 12:00 AM ASSOCIATE THEATRE PROFESSOR SCAN-RADIOLOGY REPORT 08/16/2024 12:00 AM ASSOCIATE THEATRE PROFESSOR SCAN-RADIOLOGY REPORT 08/15/2024 12:00 AM ASSOCIATE THEATRE PROFESSOR LC HIV-1/O/2, 4TH GENERATION Routine 08/30/2022 8:33 AM ASSOCIATE THEATRE PROFESSOR Routine screening for STI (sexually transmitted infection) GC CHLAMYDIA TRACH PROBE Routine 08/30/2022 8:12 AM ASSOCIATE THEATRE PROFESSOR Screening for chlamydial disease from Last 3 Months or Most Recently Relevant to Health Maintenance Results * HBSAG (09/02/2024 3:18 PM ASSOCIATE THEATRE PROFESSOR) HEPATITIS B SURFACE ANTIGEN NON-REACTI VE NON-REACTI VE [facility] Comment: For additional information, please refer to http://education.[employer]/faq/HXS377 (This link is being provided for informational/ educational purposes only.) Blood BLOOD SPECIMEN / Unknown 09/02/2024 3:18 PM ASSOCIATE THEATRE PROFESSOR 09/02/2024 3:19 PM ASSOCIATE THEATRE PROFESSOR Shanthi Delgadillo MD SEND OUTS Final Resul t [employer] [facility] [address] [place] [address], [employer] [address] [place] [address] * ANTI HCV (09/02/2024 3:18 PM ASSOCIATE THEATRE PROFESSOR) HEPATITIS C ANTIBODY NON-REACTI VE NON-REACT FRANCISCO [facility] Comment: HCV antibody was non-reactive. There is no laboratory evidence of HCV infection. In most cases, no further action is required. However, if recent HCV exposure is suspected, a test for HCV RNA (test code 90861) is suggested. For additional information please refer to http://[employer]/faq/IVJ35m0 (This link is being provided for informational/ educational purposes only.) Blood BLOOD SPECIMEN / Unknown 09/02/2024 3:18 PM ASSOCIATE THEATRE PROFESSOR 09/02/2024 3:19 PM ASSOCIATE THEATRE PROFESSOR Shanthi Delgadillo MD SEND OUTS Final Resul t Performing Organization Address [facility] de Phone Number [employer] [facility] [address] [place] [address], [employer] [employer] [address] [place] [address] * (ABNORMAL) ANTI HBS QUANT AHS (09/02/2024 3:18 PM ASSOCIATE THEATRE PROFESSOR) HEPATITIS B SURFACE AB IMMUNITY, QN <5(L) > OR = 10 mIU/mL [facility] nivia Montgomery Comment: Patient does not have immunity to hepatitis B virus. For additional information, please refer to http://[employer]/faq/KSZ786 (This link is being provided for informational/ educational purposes only). Blood BLOOD SPECIMEN / Unknown 09/02/2024 3:18 PM ASSOCIATE THEATRE PROFESSOR 09/02/2024 3:19 PM ASSOCIATE THEATRE PROFESSOR Shanthi Delgadillo MD SEND OUTS Final Resul t Performing Organization Address [facility] Co de Phone Number [employer] [facility] [address] [place] [address], [facility] [address] [place] [address] * (ABNORMAL) ANTI HAV TOTAL (09/02/2024 3:18 PM ASSOCIATE THEATRE PROFESSOR) HEPATITIS A AB, TOTAL REACTIVE(A ) NON-REACTI VE [facility] Comment: For additional information, please refer to http://[employer]/faq/HQE943 (This link is being provided for informational/ educational purposes only.) Blood BLOOD SPECIMEN / Unknown 09/02/2024 3:18 PM ASSOCIATE THEATRE PROFESSOR 09/02/2024 3:19 PM ASSOCIATE THEATRE PROFESSOR us Shanthi Delgadillo MD SEND OUTS Final Resul t Performing Organization Address [facility] de Phone Number [employer] [facility] [address] [place] [address], [facility] [address] [place] [address] * IGM ANTI-HBC (09/02/2024 3:18 PM ASSOCIATE THEATRE PROFESSOR) Pathologist [facility] HEPATITIS B CORE ANTIBODY (IGM) NON-REACTI VE NON-REACTI VE [facility] Comment: For additional information, please refer to http://[employer]/faq/MSH845 (This link is being provided for informational/ educational purposes only.) Blood BLOOD SPECIMEN / Unknown 09/02/2024 3:18 PM ASSOCIATE THEATRE PROFESSOR 09/02/2024 3:19 PM ASSOCIATE THEATRE PROFESSOR us Shanthi Delgadillo MD SEND OUTS Final Resul t Performing Organization Address [facility] de Phone Number [employer] [facility] [address] [place] [address], [facility] [address] [place] [address] * CRYPTOSPORIDIUM GIARDIA RAPID ANTIGEN (09/01/2024 10:20 AM ASSOCIATE THEATRE PROFESSOR) GIARDIA AND CRYPTOSPORIDIUM ANTIGEN PANEL SEE NOTE [facility] Comment: CRYPTOSPORIDIUM ANTIGEN, EIA Micro Number: [id number] Test Status: Final Specimen Source: Stool Specimen Quality: Adequate Cryptosporidium: Not Detected Reference Range: Not Detected NOTE: Due to intermittent shedding, one negative sample does not necessarily rule out the presence of a parasitic infection. GIARDIA AND CRYPTOSPORIDIUM ANTIGEN PANEL SEE NOTE [facility]bo [facility] Comment: GIARDIA AG, EIA, STOOL Micro Number: [id number] Test Status: Final Specimen Source: Stool Specimen Quality: Adequate Giardia Result 1: Not Detected Reference Range: Not Detected NOTE: Due to intermittent shedding, one negative sample does not necessarily rule out the presence of a parasitic infection. Stool STOOL SPECIMEN / Unknown 09/01/2024 10:20 AM ASSOCIATE THEATRE PROFESSOR 09/01/2024 10:22 AM ASSOCIATE THEATRE PROFESSOR Shanthi Delgadillo MD MICROBIOLOGY Final Resul t Performing Organization Address City/[facility]/ZIP Co de Phone Number [employer] [facility] [address] [place] [address], [employer] [address] [place] [address] * CLOSTRIDIOIDES DIFFICILE TOXIN PCR (09/01/2024 10:20 AM ASSOCIATE THEATRE PROFESSOR) CLOSTRIDIUM DIFFICILE TOXIN/GDH W/REFL TO PCR SEE NOTE [facility] Comment: CLOSTRIDIUM DIFFICILE TOXIN/GDH W/REFL TO PCR Micro Number: [id number] Test Status: Final Specimen Source: Stool Specimen Quality: Adequate GDH Antigen: Not Detected Toxin A and B: Not Detected COMMENT: No toxigenic C. difficile detected For additional information, please refer to http://education.[employer]/faq/WDM397 (This link is being provided for informational/educational purposes only.) Stool STOOL SPECIMEN / Unknown 09/01/2024 10:20 AM ASSOCIATE THEATRE PROFESSOR 09/01/2024 10:22 AM ASSOCIATE THEATRE PROFESSOR Shanthi Delgadillo MD MICROBIOLOGY Final Resul t [employer] [facility] [address] [place] [address], [facility] [address] [place] [address] * STOOL PATHOGEN MULTIPLEX PCR PANEL (09/01/2024 10:14 AM ASSOCIATE THEATRE PROFESSOR) Pathologist [facility] Campylobacter NOT Detected NOT Detected 09/01/2024 10:51 [address] ASSOCIATE THEATRE PROFESSOR [facility] Salmonella NOT Detected NOT Detected 09/01/2024 10:51 PM ASSOCIATE THEATRE PROFESSOR [facility] Shigella NOT Detected NOT Detected 09/01/2024 10:51 PM ASSOCIATE THEATRE PROFESSOR [facility] Vibrio NOT Detected NOT Detected 09/01/2024 10:51 PM ASSOCIATE THEATRE PROFESSOR [facility] Yersinia Enterocolitica NOT Detected NOT Detected 09/01/2024 10:51 PM ASSOCIATE THEATRE PROFESSOR [facility] Shiga Toxin 1 NOT Detected NOT Detected 09/01/2024 10:51 PM ASSOCIATE THEATRE PROFESSOR [facility] Shiga Toxin 2 NOT Detected NOT Detected 09/01/2024 10:51 PM ASSOCIATE THEATRE PROFESSOR [facility] Norovirus NOT Detected NOT Detected 09/01/2024 10:51 PM ASSOCIATE THEATRE PROFESSOR [facility] Rotavirus NOT Detected NOT Detected 09/01/2024 10:51 PM ASSOCIATE THEATRE PROFESSOR [facility] Stool STOOL SPECIMEN / Unknown Non-Blood / Unknown 09/01/2024 10:14 AM ASSOCIATE THEATRE PROFESSOR 09/01/2024 10:14 AM ASSOCIATE THEATRE PROFESSOR [facility] - 09/01/2024 10:51 PM ASSOCIATE THEATRE PROFESSOR This test is a Culture Independent Diagnostic Test (CIDT) therefore isolates are not available for susceptibility testing. Antibiotic treatment is often contraindicated and may be detrimental in cases of enteric infections, thus routine susceptibility testing is not recommended. us Shanthi Delgadillo MD MICROBIOLOGY Final Resul t [facility] [address] [place] [address], * CT ABDOMEN PELVIS W (09/01/2024 10:07 AM ASSOCIATE THEATRE PROFESSOR) Anatomical Region Laterality Modality Abdomen, Pelvis, AORTA, LIVER, SPLEEN Computed Tomography 09/01/2024 12:5 8 PM ASSOCIATE THEATRE PROFESSOR Impressions 09/01/2024 12:58 PM ASSOCIATE THEATRE PROFESSOR 1. No new CT abnormality to explain [...] PM (Electronically Signed) Narrative 09/01/2024 12:58 PM ASSOCIATE THEATRE PROFESSOR For Patients: As a result of the [...] (ABNORMAL) CBC AND DIFFERENTIAL (08/31/2024 4:58 PM ASSOCIATE THEATRE PROFESSOR) WHITE BLOOD CELL COUNT 9.7 3.8 - [...] BLOOD SPECIMEN / Unknown 08/31/2024 4:58 PM ASSOCIATE THEATRE PROFESSOR 08/31/2024 4:59 PM ASSOCIATE THEATRE PROFESSOR us Shanthi Delgadillo MD HEMATOLOGY Final Resul t [facility] [address] [place] [address], [employer] [address] [place] [address] * (ABNORMAL) COMP METABOLIC PANEL (08/31/2024 4:58 PM ASSOCIATE THEATRE PROFESSOR) GLUCOSE 78 65 - 99 mg/dL [facility] [...] BLOOD SPECIMEN / Unknown 08/31/2024 4:58 PM ASSOCIATE THEATRE PROFESSOR 08/31/2024 4:59 PM ASSOCIATE THEATRE PROFESSOR Shanthi Delgadillo MD CHEMISTRY Final Resul t [employer] [facility] [address] [place] [address], [facility] [address] [place] [address] * SCAN-RADIOLOGY REPORT (08/28/2024 12:00 AM ASSOCIATE THEATRE PROFESSOR) Only the most recent of3 resultswithin the time period is included. Anatomical Region Laterality Modality Other us Scanner OTHER Final Result * LC HIV-1/O/2, 4TH GENERATION (08/30/2022 8:33 AM ASSOCIATE THEATRE PROFESSOR) Pathologist [facility] HIV Scr 4th Gen Non Reactive Non Reactive 09/04/2022 4:07 PM ASSOCIATE THEATRE PROFESSOR [facility] ([facility]) Comment: HIV Negative HIV-1/HIV-2 antibodies and HIV-1 p24 antigen were NOT detected. There is no laboratory evidence of HIV infection. Blood BLOOD SPECIMEN / Unknown Venipuncture / Unknown 08/30/2022 8:33 AM ASSOCIATE THEATRE PROFESSOR 08/30/2022 8:43 AM ASSOCIATE THEATRE PROFESSOR Narrative [facility] ([facility]) - 09/04/2022 4:07 PM ASSOCIATE THEATRE PROFESSOR Performed at: [address] [place] [address] [employer] [address] [place] [id number] [employer] Mdm Architect: Kostas Aguilar MD, Phone: [phone] Shanthi Delgadillo MD LABORATORY Final Resul t [facility] ([facility]) [address] [place] [address] * GC CHLAMYDIA TRACH PROBE [[id number]] (08/30/2022 8:12 AM ASSOCIATE THEATRE PROFESSOR) Pathologist [facility] CHLAMYDIA PROBE Negative 1:43 AM ASSOCIATE THEATRE PROFESSOR [facility] N GONORRHOEAE PROBE Negative 08/31/2022 1:43 AM ASSOCIATE THEATRE PROFESSOR [facility] Other ENDOCERVICAL CYTOLOGIC MATERIAL / Unknown Non-Blood / Unknown 08/30/2022 8:12 AM ASSOCIATE THEATRE PROFESSOR 08/30/2022 8:31 AM ASSOCIATE THEATRE PROFESSOR Shanthi Delgadillo MD MICROBIOLOGY Final Resul t [facility] [address] [place] [address], [place] from Last 3 Months or Most Recently Relevant to Health Maintenance Insurance MEDICAID MEDICARE PB ONLY MEDICARE PART B HB ONLY MEDICARE PART A HB ONLY [facility] Advance Directives * Full Code (Latest Code Status on File) Date Activated Date Inactivated Comments 09/16/2015 11:02 PM 09/21/2015 6:53 PM Care Teams Financial Services Sales Representative Relationship Specialty [place] [address] [place] [address] PCP - General 10/22/18 Liya No DIRECTOR PHARMACOVIGILANCE 12/31/17 Capo Busby MD [address] [address] Pulmonology Pulmonary Medicine 02/07/23
[2024-09-30 21:45] LABS: PCR FLU A Negative PCR FLU A (Negative); PCR FLU B Negative PCR FLU B (Negative); PCR RSV Negative PCR RSV (Negative); SARS PCR* Negative SARS-CoV-2 (Negative)
[2024-09-30] MEDS: ALBUTEROL SULFATE 2.5 MG/3 ML VIAL.NEB NEB (22:27)
== END 2024-09-30 23:28 | disposition home or self-care (01) ==
PROVIDERS: Emergency Provider Family Medicine; PCP Family Medicine
DX: J45.901 Unspecified asthma with (acute) exacerbation (principal)
CPT/HCPCS: 71046; 87631; 94640; 94761; 99284

== ENCOUNTER 2024-11-25 01:28 | Emergency (ER) | payer MEDICARE, MEDICAID, SELFPAY ==
[2024-11-25 01:31] VITALS: BP 132/82; PULSE 74; RESP 16; TEMP 36.6; O2SAT 96; BMI 29.1
--- OUTSIDE RECORDS SUMMARY | 2024-11-25 01:31 | XMS_ITS | Clinical Summary ---
Author Organization Formerly [facility], later [facility] Address [address] [address] Care Team Providers Care Hot Stick Worker Name Role Phone Mika Santos MD Primary Care Provider [phone] Source Comments You are receiving this document as you are listed as the primary care provider,follow-up provider, or the patient has been referred to you for consultation.This is in compliance with the Medicare and[facility] [employer] EHR Incentive Program,which states Providers who transition their patient to another setting of careor provider of care or refers their patient to another provider of care shouldprovide summary care record for each transition of care or referral. [facility] Active Allergy Reactions Criticality Noted Date Comments Ondansetron Nausea And Vomiting 04/11/2020 Medications * This document contains information received from the source organization and may not represent a complete record from that organization. sertraline (ZOLOFT) 50 MG tablet Take 1 Tablet (50 mg) by mouth daily. Activ e sertraline (ZOLOFT) 100 MG tablet Take 1 Tablet (100 mg) by mouth daily. 01/28/20 20 Active traZODone (DESYREL) 150 MG tablet Take 1 Tablet (150 mg) by mouth daily. 04/09/20 20 Active sharps containerIndicat ions:Gender dysphoria Use to dispose of needles once a week. 1 Each 1 05/18/20 20 Active ARIPiprazole (ABILIFY) 5 MG tablet 09/01/19 21 Active ALBUterol sulfate HFA 108 (90 Base) MCG/ACT inhaler INHALE 1 TO 2 PUFFS EVERY 4 HOURS NEEDED FOR WHEEZING OR SHORTNESS OF BREATH. 18 Each 09/11/19 22 Active NEEDLE, DISP, 18 G (MONOJECT HYPO 18GX1) 18G X 1Indications:Ge nder dysphoria TO USE TO DRAW UP WEEKLY TESTOSTERONE INJECTION. 13 Each 07/05/20 22 Active montelukast (SINGULAIR) 10 MG tablet Take 1 Tablet (10 mg) by mouth daily. 06/02/20 Active methylphenidate (RITALIN LA) 30 MG 24 hour release capsule Take 1 Capsule (30 mg) by mouth every morning. 07/06/20 22 Active fluticasone propionate (FLONASE) 50 MCG/ACT nasal solution Place into both nostrils. 08/01/20 22 Active Syringe, Disposable, (BD TUBERCULIN SYRINGE) 1 MLIndications:Ge nder dysphoria TO USE WITH WEEKLY TESTOSTERONE INJECTIONS. 25 Each 08/28/19 23 Active NEEDLE, DISP, 25 G (BD DISP NEEDLES) 25G X 5/8Indications: Gender dysphoria Take 1 Each as instructed once a week. 25 Each 08/28/19 23 Active COMBIVENT RESPIMAT 20-100 MCG/ACT inhaler 1 Puff three times a day. 07/21/20 23 Active SYMBICORT 160-4.5 MCG/ACT inhaler Inhale 2 Puffs two times a day. 08/06/20 23 Active testosterone cypionate (DEPO-TESTOSTERO NE) 200 MG/ML injectionIndicat ions:Gender dysphoria Inject 0.35 mL (70 mg) intramuscularly once every week. 5 mL 12/12/19 24 Active ipratropium-albu terol (DUONEB) 0.5-2.5 (3) mg/3ml nebulizer solutionIndicati ons:Moderate persistent asthma with acute exacerbation (HRC) INHALE 3 ML EVERY 4 HOURS NEEDED FOR WHEEZING 120 mL 4 12/19/19 24 Active testosterone enanthate (DELATESTRYL) 200 MG/ML injectionIndicat ions:Gender dysphoria INJECT 0.35ML (70MG) SUBCUTANEOUSLY WEEKLY. STRENGTH: 200 MG/ML 5 mL 10/01/19 25 Active Active Problems Problem Noted Date Diagnosed Date PTSD (post-traumatic stress disorder) 05/31/2022 Tobacco dependence 09/19/2020 Gender dysphoria 04/16/2020 TBI (traumatic brain injury) 04/11/2020 Overview (04/11/2020): x3 Attention deficit hyperactiv ity disorder (ADHD), combined type, moderate 02/04/2020 Anxiety disorder 02/04/2020 Moderate episode of recurrent major depressive d isorder 02/04/2020 Episodic mood disorder 09/04/2018 Encounters Date Type Department Care Team Description 10/01/2024 Refill [facility] [address] [place] [address] Mika Santos MD Refill (testosterone enanthate (DELATESTRYL) 200 MG/ML injection [Pharmacy Med Name: TESTOSTERON ENAN 1,000 MG/5 ML]) from Last 3 Months Immunizations Immunization Administration Dates Next Due 4vHPV (Gardasil) 07/17/2013 9vHPV (Gardasil 9) 09/08/2019,07/17/2013 DTaP 06/15/2005, 5,08/28/2001,08/28,2000,2000,2000 ,2000,2000,2000 Flu Vac (3+ yrs) 06/03/2010,06/25/2009, 8 HepA Ped/Adol (1-18 yrs) 11/14/2011,07/07/2010 HepA, Unspecified Formulation 11/14/2011, 010 HepB Ped/Adol (0-18 yrs) 08/28/2001,2000,1 09/29/1999 HepB, Unspecified Formulation 08/28/2001, 001,2000 Hib (ActHIB) 08/28/2001,2000,2000 Hib/HBV 08/28/2001,2000,2000 IPV (Polio) 06/15/2005, 5,03/26/2001,03/26,2000,2000,2000 ,2000 Influenza IIV4 (Quadrivalent ) 0.5mL (29064) 07/20/2022,09/03/2020,09/04/2018(Defer red: Patient Refused),07/01/2018,07/01/2018, 017,05/30/2017,06/30/2016,06/30/2016,1 09/16/2012,07/17/2013,06/03/2010,2008,06/16/2008 Influenza, Unspecified Formulation 06/30,06/03/2010,06/25/2009,06/16 MCV4 (Menactra) 05/30/2017,05/30/2017,11/14/2011 MMR 06/15/2005, 5,05/28/2001,05/28 Meningococcal MCV4, Unspecif ied Formulation 11/14/2011 PCV20 ([id number]) 07/20/2022 PPSV23 (Pneumovax) 09/03/2020 Pfizer Bivalent 12+ 07/20/2022 Pfizer Monovalent 12+ Purple Top 01/12/2021,042 04/2021 Pneumococcal 7, PED 08/28/2001, 2,2000,11/25,2000,2000,2000 ,2000 Tdap [...] Answer Date Recorded PHQ-2 Score 3 08/08/2023 Comments No Sex and Gender Information Value Date Recorded Sex Assigned at Female 04/11/2020 10:11 AM CDT Legal Sex Female 5:23 PM TOBACCO SIZER Gender Identity Male 04/11/2020 10:11 AM CDT Sexual Orientation Straight 04/11/2020 10 :11 AM CDT Last Filed Vital Signs Vital Sign Reading Time Taken Comments Blood Pressure 112/72 08/08/2023 9:43 AM TOBACCO SIZER Pulse 70 08/08/2023 9:43 AM TOBACCO SIZER Temperature 36.6 C (97.8 F) 08/08/2023 9:43 AM TOBACCO SIZER Respiratory Rate 16 06/15/2021 11:32 AM CDT Oxygen Saturation 91% 06/15/2021 12:00 PM CDT Inhaled Oxygen Concentration - - Weight 84.8 kg (187 lb) 08/08/2023 9:43 AM TOBACCO SIZER Height 167 cm (5' 5.75) 08/28/2022 9:06 AM TOBACCO SIZER Body Mass Index 30.41 08/28/2022 9:06 AM TOBACCO SIZER Plan of Treatment Health Maintenance Due Date Last Done Comments Cervical Cancer Screening Due 2000 Hep C Screening (Preventive Services) 2000 Medicare Annual Wellness Visit 2000 Asthma ACT (score of 20 or higher) 2004 HIV Screening (Preventive Services) 2016 Asthma AMP 19-50 yo 2019 Chlamydia 08/30/2023 08/30/2022, 12/2022, 07/01/2018 COVID-19 Vaccine ( season) 2024 07/20/2022, 01/12/2021, 12/22/2020 Influenza (#1) 2024 07/20/2022, 04/2021, 07/01/2018, Additional history exists DTaP/Tdap/Td (10 [...] on patient's age to complete this topic Meningococcal B Aged Out No longer el igible based on patient's age to complete this topic Insurance * Guarantor: Luli Wharton Account Type Relation to Patient Date of Phone Billing Address Personal/Family Self [address] [place] [id number] [place] [address] MEDICARE [facility] * Guarantor: Luli Wharton Account Type Relation to Patient Date of Phone Billing Address Personal/Family Self 2000 [address] [place] [address] [facility] MEDICARE [facility] Advance Directives * Full Code (Latest Code Status on File) Date Activated Date Inactivated Comments 06/15/2021 11:11 AM 06/15/2021 3:25 PM * Full Code Date Activated Date Inactivated Comments 09/03/2018 11:50 PM 09/05/2018 6:26 PM Care Teams Hot Stick Worker Relationship Specialty Start Date End Date Mika Santos MD [address] [place] [address] PCP - General 01/15/22
[2024-11-25 01:41] VITALS: O2SAT 95
--- NOTE | 2024-11-25 01:41 | CRLHL7_ITS ---
For Patients: As a result of the Century Cures Act, medical imaging exams and procedure reports are released immediately into your electronic medical record. You may view this report before your referring provider. If you have questions, please contact your health care provider. Indication: Chest pain, shortness of breath, right arm swelling Technique: Postcontrast CTA of the chest following 95 mL Isovue 370 IV contrast. Axial MIP images obtained. Comparison: CT chest performed 06/15/2022 Findings: Pulmonary arteries: No pulmonary embolism appreciated. Lungs: No consolidation. No effusion. No pneumothorax. Mild pulmonary mosaicism. Ovoid nodule within the right fissure likely represents a prominent fissural node. Mediastinum: No acute abnormality appreciated. Unchanged thymic remnant. Lymph nodes: No gross lymphadenopathy. Upper abdomen: No acute abnormality appreciated. Soft tissues: No acute abnormality appreciated. Bones: No acute abnormality appreciated. Schmorl`s node. Impression: No pulmonary embolism appreciated. Note is made of mild pulmonary mosaicism, may be due to phase of contrast timing and parenchyma perfusion but may also be seen with chronic small vessel or small airways disease. If symptoms persist or worsen, pulmonology referral could be considered at that time. Please note that all CT scans at this facility use dose modulation, iterative reconstruction, and/or weight-based dosing when appropriate to reduce radiation dose to as low as reasonably achievable. Dictated by Mario Mendoza MD @ 11/25/2024 2:24:31 AM (Electronically Signed)
--- NOTE | 2024-11-25 01:46 | ED_ITS ---
HPI - General Adult General Date Seen: 11/25/24 Chief complaint: Chest Pain Stated complaint: Right arm swollen, chest pain Time Seen by Provider: 11/25/24 01:36 History of Present Illness HPI narrative: Patient is a 24-year-old transgender male here with his roommate for evaluation of right arm swelling, chest pain and shortness of breath. He notes that the right arm has been kind of sore for couple of days but he just noted the swelling tonight. It has not been red, he has not had fevers and denies any injury. He also notes some central chest pain which is not pleuritic, feels somewhat short of breath like his breathing is tight. Feels a little bit like asthma but has not been wheezing. He has had a cough which is not entirely new. He has no history of blood clots although he says his grandparents of had congestive heart failure an maybe some kind of clot in his grandpa's heart, he isn't really sure. He is maintained on testosterone. He is not currently smoking or vaping. Related Data Home Medications ?Medication ?Instructions ?Recorded ?Confirmed montelukast 10 mg tablet 10 mg PO DAILY 04/02/22 11/25/24 testosterone enanthate 200 mg/mL 70 mg subcut Q7D 04/02/22 11/25/24 intramuscular oil ibuprofen 08/15/24 09/24/24 aripiprazole 15 mg tablet 15 mg PO DAILY 08/16/24 11/25/24 dextroamphetamine-amphetamine 10 1 tab PO HS 08/16/24 11/25/24 mg tablet dextroamphetamine-amphetamine 15 1 tab PO DAILY 08/16/24 11/25/24 mg tablet dextroamphetamine-amphetamine ER 1 cap PO BID 08/16/24 11/25/24 10 mg 24hr capsule,extend release fluticasone furoate 200 1 ea inhalation DAILY 08/16/24 11/25/24 mcg-vilanterol 25 mcg/dose inhalation powder (Breo Ellipta) ipratropium 20 mcg-albuterol 100 1 puff inhalation TID 08/16/24 11/25/24 mcg/actuation mist for inhalation (Combivent Respimat) levalbuterol tartrate 45 2 puff inhalation Q4H PRN wheezing 08/16/24 11/25/24 mcg/actuation aerosol inhaler sertraline 100 mg tablet 200 mg PO DAILY 08/16/24 11/25/24 trazodone 150 mg tablet 150 mg PO QPM 08/28/24 11/25/24 Previous Rx's ?Medication ?Instructions ?Recorded ipratropium 0.5 mg-albuterol 3 mg 3 ml inhalation Q6H PRN #90 mL 06/09/22 (2.5 mg base)/3 mL nebulization soln albuterol sulfate 90 mcg/actuation 2 puff inhalation Q4-6H PRN 09/08/23 aerosol inhaler shortness of breath or wheezing #8.5 grams Allergies Allergy/AdvReac Type Severity Reaction Status Date / Time ondansetron (From Zofran) AdvReac Mild Vomiting Verified 09/30/24 20:55 Review of Systems Status of ROS: Reports: 10 or more systems reviewed and unremarkable except as noted in History and below [facility] Medical History Hypokalemia ?E87.6 - Hypokalemia (ICD-10) Vapes nicotine containing substance ?Z72.0 - Tobacco use (ICD-10) Moderate episode of recurrent major depressive disorder ?F33.1 - Major depressive disorder, recurrent, moderate (ICD-10) Fracture of occipital bone with loss of consciousness ?S02.119A - Unspecified fracture of occiput, initial encounter for closed fracture (ICD-10) ?S06.9X9A - Unspecified intracranial injury with loss of consciousness of unspecified duration, initial encounter (ICD-10) Disruptive mood dysregulation disorder ?F34.81 - Disruptive mood dysregulation disorder (ICD-10) Suicidal ideation (10/04/15) ?R45.851 - Suicidal ideations (ICD-10) 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) ?F06.30 - Mood disorder due to known physiological condition, unspecified (ICD-10) ?S06.9XAS - Unspecified intracranial injury with loss of consciousness status unknown, sequela (ICD-10) Colitis due to Clostridium difficile ?A04.72 - Enterocolitis due to Clostridium difficile, not specified as recurrent (ICD-10) ADHD ?F90.9 - Attention-deficit hyperactivity disorder, unspecified type (ICD-10) Depression ?F32.A - Depression, unspecified (ICD-10) Anxiety ?F41.9 - Anxiety disorder, unspecified (ICD-10) Breast removal, prophylactic ?Z40.01 - Encounter for prophylactic removal of breast (ICD-10) Traumatic brain injury ?S06.9XAA - Unspecified intracranial injury with loss of consciousness status unknown, initial encounter (ICD-10) Surgical History S/P mastectomy, bilateral (~04/2021) ?Z90.13 - Acquired absence of bilateral breasts and nipples (ICD-10) [place] teeth removed ?K08.409 - Partial loss of teeth, unspecified cause, unspecified class (ICD- 10) Family History Maternal Grandmother Breast cancer Depression Heart disease Paternal Grandfather Heart disease Thyroid cancer Social History Narrative: Unemployed. Quit smoking cigarettes in 2017, Vapes. Rare alcohol use. Frequent marijuana use. Admitted to nurse that he has done fentanyl and crushed and snorted his Adderall in the past week. What is your current living situation?: I presently have a place to live Problems where you live: no known problems Problems where you live details: n/a In the past 12 months, utilities in danger of being shut off: no In past 12 months, lack of transportation kept you from medical appts, meetings, work, or getting things needed for daily living: no In the past 12 mos, have been you worried that your food would run out before you had money to buy more?: never true In the past 12 mos, the food you bought just didn't last and you didn't have money to buy more?: never true Highest level of school completed/degree received: high school graduate Smoking Status: Former smoker Do you use any of these nicotine containing products: E-Cigarettes and Vaping Products Nicotine containing products detail: Frequently Vapes Second hand tobacco smoke exposure: No How often do you have a drink containing alcohol: monthly or less How many standard drinks containing alcohol do you have on a typical day: 1 or 2 How often do you have six or more drinks on one occasion: Never AUDIT-C Alcohol total score: 1 Non-prescribed substance use: marijuana (any form) Non-prescribed substance use details: medical marijuana card Caffeine: No (Rarely) How often does anyone, including family, friends and others, physically hurt you : never How often does anyone, including family, friends and others, insult or talk down to you: rarely How often does anyone, including family, friends and others, threaten you with harm: never How often does anyone, including family, friends and others, scream or curse at you: rarely Do you think of yourself as: straight/heterosexual Gender Identity: male service: No Health Related Social Needs: Other personal risk factors, not elsewhere classified (Z91.89) Exam Narrative: Exam Narrative: Vital signs reviewed In general, alert, nontoxic Head: Normocephalic, atraumatic. Eyes: Sclera clear. Pupils equal and reactive. ENT: Mucous membranes moist. Neck: Supple without adenopathy. Heart: Regular rate and rhythm without murmur. Lungs: Clear. No increased work of breathing, crackles or wheezes. Abdomen: Soft, nontender to palpation. Extremities: Lower extremities are normal without edema. The right upper extremity is diffusely edematous, though no pitting edema. Compartments are soft. No erythema or warmth. Distal CMS intact, radial pulse is normal. Left upper extremity is normal. Neurologic: Alert, conversant. Speech fluent, face symmetric. Moves all extremities equally. Skin: Warm, dry well perfused. Affect: Normal. Const: Vital Signs, click to edit/add: Vital Signs - 24 hr 11/25/24 01:31 11/25/24 01:41 11/25/24 04:07 Temperature 97.8 F 98.0 F Pulse Rate [Pulse Oximeter] 74 70 Respiratory Rate 16 16 Blood Pressure [Ri ght Upper Arm] 132/82 135/83 Pulse Oximetry 96 95 94 Oxygen Delivery Me thod Room Air Room Air Course Course ED Course: An EKG done on arrival shows a sinus rhythm, ventricular rate of 77. No acute ST segment changes. T-waves are unremarkable. He has clear swelling of the right upper extremity, this does not look likely to be cellulitis, he denies any injuries and the swelling is really very diffuse not localized over a joint. I do think DVT is a concern. As he is here at 2:00 a.m. it is faster to get a CT scan then an ultrasound so I am going to go ahead and get a CT PE protocol given that he is having chest pain and shortness of breath. Will also check labs including a D-dimer. If the CT is negative and the D-dimer is positive would want to get an ultrasound yet rach. He showing no signs of respiratory distress or hemodynamic instability. Laboratory evaluation is notable for a mildly elevated D-dimer of 0.63, LFTs are mildly elevated as well which has been noted before. Both AST and ALT are slightly more elevated than it has been seen previously. CRP is less than 0.5, troponin is 0, metabolic panel is otherwise normal. CT scan of the chest with IV contrast by my review shows no obvious PE. Final radiology read is reviewed, they note no PE, there is mild pulmonary mosaicism, possibly related to phase of contrast timing, could also be related to small airways disease such as his asthma. I do not think it is likely pertinent to rach's presentation. With the abnormal D-dimer, I think will need to get an ultrasound to rule out DVT in the upper extremity. Ultrasound read by Radiology showing no evidence of venous thrombosis, there is some mildly heterogenous musculature which may be due to muscle injury. Reviewed this with the patient. He says he was doing some weightlifting, was not aware that he had really injured anything but I wonder about some overuse. I have asked him to hold off on significant activity with that arm over the next week or so, ice, Tylenol, ibuprofen if needed. Return for worsening, reasons to return reviewed including severe pain or swelling, redness, fever or other new or worsening symptoms. Primary care follow-up if not improving with conservative measures over the next week or so Vital Signs Vital signs: Initial Vital Signs Temperature 97.8 F 11/25/24 01:31 Temperature Source Temporal Artery Scan 11/25/24 01:31 Pulse Rate 74 11/25/24 01:31 Respiratory Rate 16 11/25/24 01:31 Blood Pressure 132/82 11/25/24 01:31 Blood Pressure Mean 98 11/25/24 01:31 Blood Pressure Position Supine 11/25/24 01:31 Pulse Oximetry 96 11/25/24 01:31 Oxygen Delivery Method Room Air 11/25/24 01:31 Vital Signs Temperature 97.8 F 11/25/24 01:31 Pulse Rate 74 11/25/24 01:31 Respiratory Rate 16 11/25/24 01:31 Blood Pressure 132/82 11/25/24 01:31 Pulse Oximetry 96 11/25/24 01:31 Oxygen Delivery Method Room Air 11/25/24 01:31 Temperature 98.0 F 11/25/24 04:07 Pulse Rate 70 11/25/24 04:07 Respiratory Rate 16 11/25/24 04:07 Blood Pressure 135/83 11/25/24 04:07 Pulse Oximetry 94 11/25/24 04:07 Oxygen Delivery Method Room Air 11/25/24 04:07 Medications Administered Medications: Discontinued Medications Generic Name Dose Route Start Last Admin Trade Name Seeq PRN Reason Stop Dose Admin Sodium Chloride 500 mls @ 500 mls/hr 11/25/24 01:40 11/25/24 03:04 0.9 % Sodium Chloride 500 Ml IV 11/25/24 02:39 Infused .Q1H ONE Infusion Ketorolac Tromethamine 15 mg 11/25/24 01:40 11/25/24 02:15 Ketorolac 15 Mg/Ml Inj IVP 11/25/24 01:41 15 mg ONCE ONE Administration Medical Decision Making Lab Data Lab results reviewed: Yes I reviewed the patient's lab results Labs: Lab Results 11/25/24 Range/Units 01:42 WBC 10.96 (4.50-11.00) K/uL RBC 5.80 H (4.00-5.20) m/uL Hgb 17.1 H (12.0-16.0) gm/dL Hct 49.2 (33.0-51.0) % MCV 85 (80-100) fL MCH 30 (26-34) pg MCHC 35 (32-36) gm/dL RDW Coeff of Adriano 12.5 (11.5-15.5) % Plt Count 277 (140-440) K/uL Neut % (Auto) 57.2 (42.0-72.0) % Lymph % (Auto) 29.8 (20-44) % Vigo % (Auto) 10.7 (0.0-11.0) % Eos % (Auto) 0.0 (0.0-7.0) % Baso % (Auto) 0.4 (0.0-3.0) % Neut # (Auto) 6.27 (1.7-7.0) K/uL Lymph # (Auto) 3.27 H (0.90-2.90) K/uL Vigo # (Auto) 1.20 H (0.00-0.90) K/UL Eos # (Auto) 0.00 (0.00-0.50) K/uL Baso # (Auto) 0.04 (0.00-0.30) K/uL Abs Immat Gran (auto) 0.21 (0.00-0.30) K/uL Imm/Tot Granulo (auto) 1.9 % D-Dimer Quant (PE/DVT) 0.63 H (0.00-0.50) ug/ml Sodium 139 (135-149) mmol/L Potassium 3.8 (3.6-5.1) mmol/L Chloride 105 (96-114) mmol/L Carbon Dioxide 25 (20-32) mmol/L Anion Gap 9 (7-15) mEq/L BUN 8 (5-24) mg/dL Creatinine 0.8 (0.5-1.5) mg/dL Estimated Creat Clear 101.51 Estimated GFR 105 ml/min Glucose 103 (60-115) mg/dL Calcium 9.7 (8.4-10.6) mg/dL Total Bilirubin 1.0 (0.1-1.5) mg/dL Direct Bilirubin 0.2 (0.0-0.5) mg/dL AST 174 H (12-35) U/L ALT 69 H (4-35) U/L Alkaline Phosphatase 69 (40-150) U/L C-Reactive Protein < 0.5 L (0.5-1.0) mg/dL Total Protein 7.2 (6.0-8.3) g/dL Albumin 4.3 (3.3-5.0) g/dL POC Troponin I 0.00 L (0.01-0.04) ng/ml Imaging Data CT scan - chest: Attestation: I have reviewed the pertinent imaging results. Radiologist's impression: Patient: DANDRE ALVARADO Facility: [facility] . Site : 2000 Study: CT-Chest Angio PE W/ISOVUE 370 95CC-11/25/2024 2:11:12 AM Ordering Physician: Fernanda Manriquez Final Report: Indication: Chest pain, shortness of breath, right arm swelling Technique: Postcontrast CTA of the chest following 95 mL Isovue 370 IV contrast. Axial MIP images obtained. Comparison: CT chest performed 06/15/2022 Findings: Pulmonary arteries: No pulmonary embolism appreciated. Lungs: No consolidation. No effusion. No pneumothorax. Mild pulmonary mosaicism. Ovoid nodule within the right fissure likely represents a prominent fissural node. Mediastinum: No acute abnormality appreciated. Unchanged thymic remnant. Lymph nodes: No gross lymphadenopathy. Upper abdomen: No acute abnormality appreciated. Soft tissues: No acute abnormality appreciated. Bones: No acute abnormality appreciated. Schmorl`s node. Impression: No pulmonary embolism appreciated. Note is made of mild pulmonary mosaicism, may be due to phase of contrast timing and parenchyma perfusion but may also be seen with chronic small vessel or small airways disease. If symptoms persist or worsen, pulmonology referral could be considered at that time. Please note that all CT scans at this facility use dose modulation, iterative reconstruction, and/or weight-based dosing when appropriate to reduce radiation dose to as low as reasonably achievable. Dictated by Mario Mendoza MD @ 11/25/2024 2:24:31 AM Right upper extremity ultrasound: Attestation: I have reviewed the pertinent imaging results. Radiologist's impression: Patient: DANDRE ALVARADO Facility: [facility] . Site : 2000 Study: US-Extremity Right Upper Extremity Venous-11/25/2024 4:13:22 AM Ordering Physician: Fernanda Manriquez Final Report: Indication: Right forearm pain and swelling. Patient was lifting weights 2 days prior. Technique: Ultrasound examination of the right upper extremity was performed. Grayscale, grayscale compression, color Doppler, spectral Doppler and augmentation technique was utilized for evaluating the venous system. Comparison: None Findings: The following veins were studied in appeared normal on the right: Internal jugular vein, innominate vein, subclavian vein, axillary vein, brachial vein, basilic vein and cephalic vein. Limited sonography of the area of pain in the patient`s forearm shows mildly heterogeneous musculature which may be due to muscle injury. No fluid collection or obvious/maggie discontinuity. Please be aware that this is not a full or formal study of the musculature at the area of pain. Impression: 1. No evidence of right upper extremity venous thrombosis. 2. Please review the comments regarding the musculature of the forearm Dictated by Mario Wade MD @ 11/25/2024 4:20:41 AM Discharge Plan Discharge Clinical Impression: Pain in right arm Patient Disposition: Home, Self-Care Condition: Stable Instructions: Arm Pain (ED) Additional Instructions: Ice, Tylenol or ibuprofen as needed for pain. There is evidence on the ultrasound of some mild swelling or injury to the muscle in your forearm, but no evidence of blood clots. Your lab work is reassuring as well. If your arm is getting worse, you develop more severe pain, swelling, redness, fever or other new symptoms, return to the ER for re-evaluation. Otherwise, follow-up in clinic if you do not find that this is gradually improving with simple rest and time over the next week or so. Prescriptions: No Action albuterol sulfate 90 mcg/actuation HFA aerosol inhaler 2 puff inhalation Q4-6H PRN (Reason: shortness of breath or wheezing) Qty: 8.5 3RF montelukast 10 mg tablet 10 mg PO DAILY testosterone enanthate 200 mg/mL oil 70 mg subcut Q7D Rx Instructions: FRIDAYS ipratropium-albuterol 0.5 mg-3 mg(2.5 mg base)/3 mL solution for nebulization 3 ml inhalation Q6H PRNQty: 90 1RF ibuprofen dextroamphetamine-amphetamine 10 mg tablet 1 tab PO HS aripiprazole 15 mg tablet 15 mg PO DAILY dextroamphetamine-amphetamine 15 mg tablet 1 tab PO DAILY dextroamphetamine-amphetamine 10 mg capsule,extended release 24hr 1 cap PO BID Combivent Respimat 20-100 mcg/actuation mist 1 puff inhalation TID sertraline 100 mg tablet 200 mg PO DAILY fluticasone furoate-vilanterol [Breo Ellipta] 200-25 mcg/dose blister with device 1 ea inhalation DAILY levalbuterol tartrate 45 mcg/actuation HFA aerosol inhaler 2 puff INHALATION Q4H PRN (Reason: wheezing) trazodone 150 mg tablet 150 mg PO QPM Follow Up/Referrals: Shanthi Delgadillo MD [Primary Care Provider] - Stand Alone Forms: [employer] Info Instructions
--- OUTSIDE RECORDS SUMMARY | 2024-11-25 01:54 | XMS_ITS | Clinical Summary ---
Author Organization [facility] Address [address], [place] [address] Care Team Providers Care Rides Supervisor Name Role Phone iMka Santos MD Primary Care Provider [phone] Source Comments You are receiving this document as you are listed as the primary care provider,follow-up provider, or the patient has been referred to you for consultation.This is in compliance with the Medicare and[facility] EHR Incentive Program,which states Providers who transition their patient to another setting of careor provider of care or refers their patient to another provider of care shouldprovide summary care record for each transition of care or referral. [id number] Allergies Active Allergy Reactions Criticality Noted Date [...] Type Department Care Team Description 10/01/2024 [place] [facility] [address] [place] [address] Mika Santos MD Refill (testosterone [...] 5,03/26/2001,03/26,2000,2000,2000 ,2000 Influenza IIV4 (Quadrivalent ) 0.5mL (90108) 07/20/2022,09/03/2020,09/04/2018(Defer red: Patient Refused),07/01/2018,07/01/2018, 017,05/30/2017,06/30/2016,06/30/2016,1 09/16/2012,07/17/2013,06/03/2010,2008,06/16/2008 Influenza, Unspecified Formulation 06/30,06/03/2010,06/25/2009,06/16 MCV4 (Menactra) 05/30/2017,05/30/2017,11/14/2011 MMR 06/15/2005, 5,05/28/2001,05/28 Meningococcal MCV4, Unspecif ied Formulation 11/14/2011 PCV20 (Aayvaul91) 07/20/2022 PPSV23 (Pneumovax) 09/03/2020 Pfizer Bivalent 12+ [...] AM CDT Legal Sex Female 5:23 PM [employer] Gender Identity Male 04/11/2020 10:11 AM CDT Sexual Orientation Straight 04/11/2020 10 :11 AM CDT Last Filed Vital Signs Vital Sign Reading Time Taken Comments Blood Pressure 112/72 08/08/2023 9:43 AM [employer] STY[employer] Pulse 70 08/08/2023 9:43 AM [employer] Temperature 36.6 C (97.8 F) 08/08/2023 9:43 AM [employer] ST[employer]LIST Respiratory Rate 16 06/15/2021 11:32 AM CDT Oxygen Saturation 91% 06/15/2021 12:00 PM CDT Inhaled Oxygen Concentration - - Weight 84.8 kg (187 lb) 08/08/2023 9:43 AM [employer] ST[employer] Height 167 cm (5' 5.75) 08/28/2022 9:06 AM [employer] Body Mass Index 30.41 08/28/2022 9:06 AM [employer]ON STYLIST Plan of Treatment Health Maintenance Due Date [...] Billing Address Personal/Family Self [address] [place] [id number] [place] [address] MEDICARE [facility] * Guarantor: Luli Wharton Account Type Relation to Patient Date of Phone Billing Address Personal/Family Self 2000 [address] [place] [address] [facility] MEDICARE [facility] Advance Directives * Full Code (Latest Code Status on File) Date Activated Date Inactivated Comments 06/15/2021 11:11 AM 06/15/2021 3:25 PM * Full Code Date Activated Date Inactivated Comments 09/03/2018 11:50 PM 09/05/2018 6:26 PM Care Teams Rides Supervisor Relationship Specialty Start Date End Date Mika Santos MD [address] [place] [address] PCP - General 01/15/22
--- OUTSIDE RECORDS SUMMARY | 2024-11-25 01:54 | XMS_ITS | Clinical Summary ---
Author Organization [employer] [facility] Address [address] [place] [address] Care Team Providers Care Crystal Grinder Name Role Phone Liya No NP Unavailable Unavailable Mitra House MD Primary Care Provider [phone] Capo Busby MD Unavailable [phone] Allergies Active Allergy Reactions Criticality Noted Date Comments Ondansetron Vomiting 02/09/2020 Causes paradoxical increased vomiting. Medications traZODone (DESYREL) 150 mg tablet Take 1 tablet by mouth at bedtime. 0 01/15/20 18 Active Ritalin LA 30 mg SR capsule Take 30 mg by mouth once daily. 10/21/19 22 Active sertraline (ZOLOFT) 100 mg tablet Take 100 mg by mouth once daily. 06/09/20 21 Active sertraline (ZOLOFT) 25 mg tablet Take 50 mg by mouth once daily. 07/28/20 21 Active testosterone enanthate (DELATESTRYL) 200 mg/mL injection INJECT 0.25 ML SUBCUTANEOUSLY WEEKLY 11/25/19 22 Active BD Disposable [place] 25 gauge x 5/8 ndle TO INJECT TESTOSTERONE TWICE WEEKLY 10/27/19 22 Active Tuberculin Syringe 1cc 1 mL syrg TO USE WITH WEEKLY TESTOSTERONE INJECTIONS. 03/17/20 22 Active Monoject Hypodermic Polypropyl 18 gauge x 1 ndleIndications: Mvzfus-ek-wsmz transgender person As directed. TO USE TO DRAW UP WEEKLY TESTOSTERONE INJECTION. 100 Each 1 07/09/20 22 Active Easy Touch Luer Lock Insulin 1 mL TO USE WITH WEEKLY TESTOSTERONE INJECTIONS. 08/28/19 23 Active ARIPiprazole (ABILIFY) 5 mg tablet Take 2 Tablets (10 mg) by mouth once daily. 0 10/10/19 23 Active metoclopramide HCl (REGLAN) 5 mg tabletIndication s:Nausea and vomiting, unspecified vomiting type TAKE 1-2 TABLETS (5-10 MG) BY MOUTH FOUR TIMES DAILY BEFORE MEALS AND AT BEDTIME. 360 Tablet 3 11/13/19 23 Active hydrOXYzine HCL (ATARAX) 25 mg tablet 11/29/19 23 Active albuterol-ipratr opium (DUONEB) (2.5-0.5 mg) in 3 mL NEBULIZATION solutionIndicati ons:Severe persistent asthma without complication (HC) Inhale 3 mL via a nebulizer 4 times daily if needed for Shortness of Breath 1st choice or Wheezing 2nd choice. 90 mL 11 03/19/20 24 Active benralizumab (FASENRA) 30 mg/mL auto-injectorInd ications:Asthma, unspecified asthma severity, unspecified whether complicated, unspecified whether persistent (HC) Inject 1 mL (30 mg) subcutaneous every 8 weeks. 2 Each 6 04/02/20 24 Active levalbuterol (XOPENEX HFA) 45 mcg/actuation inhalerIndicatio ns:Severe persistent asthma with acute exacerbation (HC) Inhale 2 Puffs by mouth every 4 hours if needed for Shortness Of Breath or Wheezing. 30 g 11 07/30/20 24 Active fluticasone furoate-vilanter oL (Breo Ellipta) 200-25 mcg/dose inhalation powdererIndicati ons:Severe persistent asthma with acute exacerbation (HC) Inhale 1 Puff by mouth once daily. 60 Each 11 07/30/20 24 Active fluticasone (50 mcg per actuation) nasal solution (FLONASE)Indicat ions:Allergic rhinitis, unspecified seasonality, unspecified trigger INHALE 1 SPRAY INTO AFFECTED NOSTRIL(S) TWO TIMES DAILY. 48 mL 1 09/09/19 25 Active predniSONE (DELTASONE) 10 mg tabletIndication s:Asthma, unspecified asthma severity, unspecified whether complicated, unspecified whether persistent (HC) Take 40 mg daily for 3 days, then 30 mg daily for 3 days, then 20 mg daily for 3 days, then 10 mg daily for 3 days 30 Tablet 10/02/19 25 Active budesonide-formo teroL (SYMBICORT) 160-4.5 mcg/actuation (160-4.5 mcg each actuation) inhalerIndicatio ns:Severe persistent asthma, unspecified whether complicated (HC) Inhale 2 puffs twice daily and 1-2 puffs every 4 hours as needed for asthma exacerbations. Max 12 puffs per day. 3 Each 3 10/22/19 Active ipratropium-albu teroL (combivent respimat) (20-100 mcg each actuation) mist inhalerIndicatio ns:Severe persistent asthma with acute exacerbation (HC) Inhale 1 Puff by mouth three times daily. 3 Each 3 10/22/19 Active montelukast (SINGULAIR) 10 mg tabletIndication s:Severe persistent asthma with acute exacerbation (HC) Take 1 Tablet (10 mg) by mouth at bedtime. 90 Tablet 3 10/22/19 Active Active Problems Problem Noted Date Diagnosed [...] x3 Anxiety disorder 02/04/2020 Marijuana use 09/08/2019 Khgloh-hm-xokp transgender person 03/10/2018 Moderate episode of recurrent [...] Encounters Date Type Department Care Team Description 10/22/2024 3:00 PM SENIOR DESIGN ENGINEERING SPECIALIST Office Visit [facility] [address] [place] [address] Capo Busby MD Follow Up (Asthma/) 10/22/2024 Travel 10/13/2024 Telephone [facility] [address] [place] [phone] Capo Busby MD Medication Management (Fasenra home injections) 09/30/2024 Orders Only [facility] Scanner 1 scan: (1-Ord) RACHIE ROCHA CHEST 2V, 09/30/2024 09/07/2024 Refill [facility] [address] [place] [address] Vika Stovall MD Refill Request (Fluticasone (50 Mcg Per Actuation) Nasal) 09/02/2024 12:30 PM SENIOR DESIGN ENGINEERING SPECIALIST Telemedicine [facility] [address] [place] [phone] Capo Busby MD 09/02/2024 Telephone [facility] [address] [place] [phone] Capo Busby MD Appointment (Needs f/u in [facility] in September) 09/01/2024 9:30 AM SENIOR DESIGN ENGINEERING SPECIALIST Ancillary Procedure [facility] [address] [place] [address] 08/31/2024 4:00 PM SENIOR DESIGN ENGINEERING SPECIALIST Orders Only [facility] [address] [place] [address] Lab, [facility] 08/31/2024 3:35 PM SENIOR DESIGN ENGINEERING SPECIALIST Office Visit [facility] [address] [place] [address] Shanthi Delgadillo MD Concerns (Discuss rehab) 08/31/2024 Travel 08/30/2024 Travel 08/28/2024 Orders Only [facility] Scanner 1 scan: (1-Ord) [facility], XR ABDOMEN, 08/28/2024 08/28/2024 Nurse Triage [facility] [address] [place] [address] Shanthi Delgadillo MD Melena from Last 3 Months Immunizations Immunization Administration Dates Next Due COVID-19 vaccine (Pfizer-Bio [...] Comments Blood Pressure 119/81 08/31/2024 3:41 PM SENIOR DESIGN ENGINEERING SPECIALIST Pulse 94 08/31/2024 3:41 PM SENIOR DESIGN ENGINEERING SPECIALIST Temperature 36.3 C (97.4 F) 10/01/2022 8:25 AM SENIOR DESIGN ENGINEERING SPECIALIST Respiratory Rate 18 07/30/2024 1:08 PM SENIOR DESIGN ENGINEERING SPECIALIST Oxygen Saturation 96% 08/31/2024 3:41 PM SENIOR DESIGN ENGINEERING SPECIALIST Inhaled Oxygen Concentration - - Weight 81.2 kg (179 lb) 08/31/2024 3:41 PM SENIOR DESIGN ENGINEERING SPECIALIST Height 167.6 cm (5' 6) 07/30/2024 1:08 PM SENIOR DESIGN ENGINEERING SPECIALIST Body Mass Index 28.89 07/30/2024 1:08 PM SENIOR DESIGN ENGINEERING SPECIALIST Plan of Treatment Upcoming Encounters Date Type Department Care Team (Late st Contact Info) Description 01/21/2025 10:00 AM CDT Office Visit [facility] [address] [place] [address] [facility] Busby MD [facility] [address] [address] Health Maintenance Due Date Last Done Comments HPV series for age 9-26 (3 - Risk 3-dose series) 01/07/2020 09/08/2019, 07/17/2013, 07/17/2013 HPV series for age 9-26 (3 - Risk 3-dose series) 01/07/2020 09/08/2019, 07/17/2013, 07/17/2013 Depression screening for age 12+ 07/20/2023 07/20/2022, 11/08/2021, 09/16/2015 Chlamydia for age 16-24 08/30/2023 08/30/2022 COVID-19 vaccine series ( season) 2024 07/20/2022, 01/12/2021, 12/22/2020 Pap test for age 21-65 06/18/2024 06/18/2023 Influenza Vaccine (Season Ended) 2025 07/20/2022, 09/03/2020, 07/01/2018, Additional history exists BMI (ht [...] Procedure Name Priority Date/Time Associated Diagnosis Comments SCAN-RADIOLOGY REPORT 09/30/2024 12:00 AM SENIOR DESIGN ENGINEERING SPECIALIST ANTI HCV Add On 09/02/2024 3:18 PM SENIOR DESIGN ENGINEERING SPECIALIST Transaminitis Elevated bilirubin IGM ANTI-HBC Add On 09/02/2024 3:18 PM SENIOR DESIGN ENGINEERING SPECIALIST Transaminitis Elevated bilirubin HBSAG (HBS) Add On 09/02/2024 3:18 PM SENIOR DESIGN ENGINEERING SPECIALIST Transaminitis Elevated bilirubin Encounter for screening for other viral diseases ANTI HBS QUANT AHS Add On 09/02/2024 3: 18 PM SENIOR DESIGN ENGINEERING SPECIALIST Transaminitis Elevated bilirubin Encounter for screening for other viral diseases ANTI HAV TOTAL Add On 09/02/2024 3:18 PM SENIOR DESIGN ENGINEERING SPECIALIST Transaminitis Elevated bilirubin CRYPTOSPORIDIUM GIARDIA RAPID ANTIGEN Routine 09/01/2024 10:20 AM SENIOR DESIGN ENGINEERING SPECIALIST Acute diarrhea CLOSTRIDIOIDES DIFFICILE TOXIN PCR Routine 09/01/2024 10:20 AM SENIOR DESIGN ENGINEERING SPECIALIST Acute diarrhea STOOL PATHOGEN MULTIPLEX PCR PANEL Routine 09/01/2024 10:14 AM SENIOR DESIGN ENGINEERING SPECIALIST Acute diarrhea CT ABDOMEN PELVIS W CHERIE 09/01/2024 1 0:07 AM SENIOR DESIGN ENGINEERING SPECIALIST Abdominal pain, RLQ (right lower quadrant) CBC WITH AUTO DIFFERENTIAL Routine 08/31/2024 4:58 PM SENIOR DESIGN ENGINEERING SPECIALIST Abdominal pain, RLQ (right lower quadrant) COMP METABOLIC PANEL Routine 08/31/2024 4:58 PM SENIOR DESIGN ENGINEERING SPECIALIST Abdominal pain, RLQ (right lower quadrant) SCAN-RADIOLOGY REPORT 08/28/2024 12:00 AM SENIOR DESIGN ENGINEERING SPECIALIST LC HIV-1/O/2, 4TH GENERATION Routine 08/30/2022 8:33 AM SENIOR DESIGN ENGINEERING SPECIALIST Routine screening for STI (sexually transmitted infection) GC CHLAMYDIA TRACH PROBE Routine 08/30/2022 8:12 AM SENIOR DESIGN ENGINEERING SPECIALIST Screening for chlamydial disease from Last 3 Months or Most Recently Relevant to Health Maintenance Results * SCAN-RADIOLOGY REPORT (09/30/2024 12:00 AM SENIOR DESIGN ENGINEERING SPECIALIST) Only the most recent of2 resultswithin the time period is included. Anatomical Region Laterality Modality Other us Scanner OTHER Final Result * HBSAG (09/02/2024 3:18 PM SENIOR DESIGN ENGINEERING SPECIALIST) HEPATITIS B SURFACE ANTIGEN NON-REACTI VE NON-REACTI VE [facility] Comment: For additional information, please refer to http://education.J[employer]x/faq/YLH431 (This link is being provided for informational/ educational purposes only.) Blood BLOOD SPECIMEN / Unknown 09/02/2024 3:18 PM SENIOR DESIGN ENGINEERING SPECIALIST 09/02/2024 3:19 PM SENIOR DESIGN ENGINEERING SPECIALIST us Shanthi Delgadillo MD SEND OUTS Final Resul t [facility] [address] [place] [address], [facility] [address] [place] [address] * ANTI HCV (09/02/2024 3:18 PM SENIOR DESIGN ENGINEERING SPECIALIST) HEPATITIS C ANTIBODY NON-REACTI VE NON-REACT FRANCISCO [employer] onivia Montgomery Comment: HCV antibody was non-reactive. There is no laboratory evidence of HCV infection. In most cases, no further action is required. However, if recent HCV exposure is suspected, a test for HCV RNA (test code 82453) is suggested. For additional information please refer to http://TicketForEvent.Jagex/faq/NHM94c2 (This link is being provided for informational/ educational purposes only.) Blood BLOOD SPECIMEN / Unknown 09/02/2024 3:18 PM SENIOR DESIGN ENGINEERING SPECIALIST 09/02/2024 3:19 PM SENIOR DESIGN ENGINEERING SPECIALIST Shanthi Delgadillo MD SEND OUTS Final Resul t Performing Organization Address [facility]/RUST de Phone Number Masabi [address] [phone], [facility] [address] [place] [phone] * (ABNORMAL) ANTI HBS QUANT AHS (09/02/2024 3:18 PM SENIOR DESIGN ENGINEERING SPECIALIST) Pathologist [facility] HEPATITIS B SURFACE AB IMMUNITY, QN <5(L) > OR = 10 mIU/mL [employer]Fabiola Montgomery Comment: Patient does not have immunity to hepatitis B virus. For additional information, please refer to http://TicketForEvent.Jagex/faq/ASY833 (This link is being provided for informational/ educational purposes only). Blood BLOOD SPECIMEN / Unknown 09/02/2024 3:18 PM SENIOR DESIGN ENGINEERING SPECIALIST 09/02/2024 3:19 PM SENIOR DESIGN ENGINEERING SPECIALIST us Shanthi Delgadillo MD SEND OUTS Final Resul t Performing Organization Address [facility]/ZIP Co de Phone Number Masabi [facility] [address] [place] [phone], [facility] [address] [place] [address] * (ABNORMAL) ANTI HAV TOTAL (09/02/2024 3:18 PM SENIOR DESIGN ENGINEERING SPECIALIST) HEPATITIS A AB, TOTAL REACTIVE(A ) NON-REACTI VE [facility] Comment: For additional information, please refer to http://TicketForEvent.Jagex/faq/RHF855 (This link is being provided for informational/ educational purposes only.) Blood BLOOD SPECIMEN / Unknown 09/02/2024 3:18 PM SENIOR DESIGN ENGINEERING SPECIALIST 09/02/2024 3:19 PM SENIOR DESIGN ENGINEERING SPECIALIST Shanthi Delgadillo MD SEND OUTS Final Resul t Performing Organization Address [facility] Co de Phone Number Masabi [facility] [address] [place] [phone], [facility] [address] [facility] [place] [address] * IGM ANTI-HBC (09/02/2024 3:18 PM SENIOR DESIGN ENGINEERING SPECIALIST) HEPATITIS B CORE ANTIBODY (IGM) NON-REACTI VE NON-REACTI VE [facility] Comment: For additional information, please refer to http://TicketForEvent.Jagex/faq/ZKQ739 (This link is being provided for informational/ educational purposes only.) Blood BLOOD SPECIMEN / Unknown 09/02/2024 3:18 PM SENIOR DESIGN ENGINEERING SPECIALIST 09/02/2024 3:19 PM SENIOR DESIGN ENGINEERING SPECIALIST Shanthi Delgadillo MD SEND OUTS Final Resul t Performing Organization Address City/[facility]/ZIP Co de Phone Number Masabi [facility] [address] [facility] [place] [place] [address], [facility] [address] [facility] [place] [address] * CRYPTOSPORIDIUM GIARDIA RAPID ANTIGEN (09/01/2024 10:20 AM SENIOR DESIGN ENGINEERING SPECIALIST) GIARDIA AND CRYPTOSPORIDIUM ANTIGEN PANEL SEE NOTE [facility] Comment: CRYPTOSPORIDIUM ANTIGEN, EIA Micro Number: [id number] Test Status: Final Specimen Source: Stool Specimen Quality: Adequate Cryptosporidium: Not Detected Reference Range: Not Detected NOTE: Due to intermittent shedding, one negative sample does not necessarily rule out the presence of a parasitic infection. GIARDIA AND CRYPTOSPORIDIUM ANTIGEN PANEL SEE NOTE [facility] Comment: GIARDIA AG, EIA, STOOL Micro Number: [id number] Test Status: Final Specimen Source: Stool Specimen Quality: Adequate Giardia Result 1: Not Detected Reference Range: Not Detected NOTE: Due to intermittent shedding, one negative sample does not necessarily rule out the presence of a parasitic infection. Stool STOOL SPECIMEN / Unknown 09/01/2024 10:20 AM SENIOR DESIGN ENGINEERING SPECIALIST 09/01/2024 10:22 AM SENIOR DESIGN ENGINEERING SPECIALIST Shanthi Delgadillo MD MICROBIOLOGY Final Resul t [employer] [facility] [address] [place] [address], [facility] [address] [place] [address] * CLOSTRIDIOIDES DIFFICILE TOXIN PCR (09/01/2024 10:20 AM SENIOR DESIGN ENGINEERING SPECIALIST) Pathologist [facility] CLOSTRIDIUM DIFFICILE TOXIN/GDH W/REFL TO PCR SEE NOTE [facility]assie Montgomery Comment: CLOSTRIDIUM DIFFICILE TOXIN/GDH W/REFL TO PCR Micro Number: [id number] Test Status: Final Specimen Source: Stool Specimen Quality: Adequate GDH Antigen: Not Detected Toxin A and B: Not Detected COMMENT: No toxigenic C. difficile detected For additional information, please refer to http://education.Sensory Analytics/faq/MSM012 (This link is being provided for informational/educational purposes only.) Stool STOOL SPECIMEN / Unknown 09/01/2024 10:20 AM SENIOR DESIGN ENGINEERING SPECIALIST 09/01/2024 10:22 AM SENIOR DESIGN ENGINEERING SPECIALIST Shanthi Delgadillo MD MICROBIOLOGY Final Resul t Performing Organization Address City/[facility]/ZIP Co de Phone Number Masabi [facility] [address] [place] [address], [facility] [address] [place] [address] * STOOL PATHOGEN MULTIPLEX PCR PANEL (09/01/2024 10:14 AM SENIOR DESIGN ENGINEERING SPECIALIST) Campylobacter NOT Detected NOT Detected 09/01/2024 10:51 PM SENIOR DESIGN ENGINEERING SPECIALIST [facility] Salmonella NOT Detected NOT Detected 09/01/2024 10:51 PM SENIOR DESIGN ENGINEERING SPECIALIST [facility] Shigella NOT Detected NOT Detected 09/01/2024 10:51 PM SENIOR DESIGN ENGINEERING SPECIALIST [facility] Vibrio NOT Detected NOT Detected 09/01/2024 10:51 PM SENIOR DESIGN ENGINEERING SPECIALIST [facility] Yersinia Enterocolitica NOT Detected NOT Detected 09/01/2024 10:51 PM SENIOR DESIGN ENGINEERING SPECIALIST [facility] Shiga Toxin 1 NOT Detected NOT Detected 09/01/2024 10:51 PM SENIOR DESIGN ENGINEERING SPECIALIST [facility] Shiga Toxin 2 NOT Detected NOT Detected 09/01/2024 10:51 PM SENIOR DESIGN ENGINEERING SPECIALIST [facility] Norovirus NOT Detected NOT Detected 09/01/2024 10:51 PM SENIOR DESIGN ENGINEERING SPECIALIST [facility] Rotavirus NOT Detected NOT Detected 09/01/2024 10:51 PM SENIOR DESIGN ENGINEERING SPECIALIST [facility] Stool STOOL SPECIMEN / Unknown Non-Blood / Unknown 09/01/2024 10:14 AM SENIOR DESIGN ENGINEERING SPECIALIST 09/01/2024 10:14 AM SENIOR DESIGN ENGINEERING SPECIALIST Narrative [facility] - 09/01/2024 10:51 PM SENIOR DESIGN ENGINEERING SPECIALIST This test is a Culture Independent Diagnostic Test (CIDT) therefore isolates are not available for susceptibility testing. Antibiotic treatment is often contraindicated and may be detrimental in cases of enteric infections, thus routine susceptibility testing is not recommended. Shanthi Delgadillo MD MICROBIOLOGY Final Resul t [facility] [address] [place] [address], [place] * CT ABDOMEN PELVIS W (09/01/2024 10:07 AM SENIOR DESIGN ENGINEERING SPECIALIST) Anatomical Region Laterality Modality Abdomen, Pelvis, AORTA, LIVER, SPLEEN Computed Tomography 09/01/2024 12:5 8 PM SENIOR DESIGN ENGINEERING SPECIALIST Impressions 09/01/2024 12:58 PM SENIOR DESIGN ENGINEERING SPECIALIST 1. No new CT abnormality to explain [...] PM (Electronically Signed) Narrative 09/01/2024 12:58 PM SENIOR DESIGN ENGINEERING SPECIALIST For Patients: As a result of the [...] (ABNORMAL) CBC AND DIFFERENTIAL (08/31/2024 4:58 PM SENIOR DESIGN ENGINEERING SPECIALIST) WHITE BLOOD CELL COUNT 9.7 3.8 - [...] BLOOD SPECIMEN / Unknown 08/31/2024 4:58 PM SENIOR DESIGN ENGINEERING SPECIALIST 08/31/2024 4:59 PM SENIOR DESIGN ENGINEERING SPECIALIST us Shanthi Delgadillo MD HEMATOLOGY Final Resul t Mas[facility] [address] [place] [address], [facility] [address] [place] [address] * (ABNORMAL) COMP METABOLIC PANEL (08/31/2024 4:58 PM SENIOR DESIGN ENGINEERING SPECIALIST) [facility] GLUCOSE 78 65 - 99 mg/dL [facility] [...] BLOOD SPECIMEN / Unknown 08/31/2024 4:58 PM SENIOR DESIGN ENGINEERING SPECIALIST 08/31/2024 4:59 PM SENIOR DESIGN ENGINEERING SPECIALIST us Shanthi Delgadillo MD CHEMISTRY Final Resul t [facility] [address] [place] [address], [facility] [address] [place] [address] * HIV-1/O/2, 4TH GENERATION (08/30/2022 8:33 AM SENIOR DESIGN ENGINEERING SPECIALIST) HIV Scr 4th Gen Non Reactive Non Reactive 09/04/2022 4:07 PM SENIOR DESIGN ENGINEERING SPECIALIST [facility] ([facility]) Comment: HIV Negative HIV-1/HIV-2 antibodies and HIV-1 p24 antigen were NOT detected. There is no laboratory evidence of HIV infection. Blood BLOOD SPECIMEN / Unknown Venipuncture / Unknown 08/30/2022 8:33 AM SENIOR DESIGN ENGINEERING SPECIALIST 08/30/2022 8:43 AM SENIOR DESIGN ENGINEERING SPECIALIST Narrative [facility] ([facility]) - 09/04/2022 4:07 PM SENIOR DESIGN ENGINEERING SPECIALIST Performed at: [address] [place] [address] [facility] [address] [place] [id number] Health Underwriter: Kostas Aguilar MD, Phone: [phone] us Shanthi Delgadillo MD LABORATORY Final Resul t [facility] ([facility]) [address] [place] [address], * GC CHLAMYDIA TRACH PROBE [[id number]] (08/30/2022 8:12 AM SENIOR DESIGN ENGINEERING SPECIALIST) Pathologist [facility] CHLAMYDIA PROBE Negative 1:43 AM SENIOR DESIGN ENGINEERING SPECIALIST [facility] N GONORRHOEAE PROBE Negative 08/31/2022 1:43 AM SENIOR DESIGN ENGINEERING SPECIALIST [facility] Other ENDOCERVICAL CYTOLOGIC MATERIAL / Unknown Non-Blood / Unknown 08/30/2022 8:12 AM SENIOR DESIGN ENGINEERING SPECIALIST 08/30/2022 8:31 AM SENIOR DESIGN ENGINEERING SPECIALIST us Shanthi Delgadillo MD MICROBIOLOGY Final Resul t [facility] [address] [place] [address], [place] from Last 3 Months or Most Recently Relevant to Health Maintenance Insurance MEDICAID MEDICARE [place] ONLY MEDICARE PART B HB ONLY MEDICARE PART A HB ONLY [facility] Advance Directives * Full Code (Latest Code Status on File) Date Activated Date Inactivated Comments 09/16/2015 11:02 PM 09/21/2015 6:53 PM Care Teams Crystal Grinder Relationship Specialty [place] [address] [place] [address] PCP - General 10/22/18 Liya No NP 12/31/17 Capo Busby MD [address] Fernández [address] [address] Pulmonology Pulmonary Medicine 02/07/23
[2024-11-25 02:04] LABS: Albumin* 4.3 g/dL (3.3-5.0); Chloride* 105 mmol/L (96-114); Sodium* 139 mmol/L (135-149)
[2024-11-25 02:05] LABS: Potassium* 3.8 mmol/L (3.6-5.1)
[2024-11-25 02:07] LABS: Blood Urea Nitrogen* 8 mg/dL (5-24); Creatinine* 0.8 mg/dL (0.5-1.5); Est. Creatinine Clearance* 101.51; Estimated Glomerular Filt Rate 105 ml/min
[2024-11-25 02:08] LABS: Alanine Aminotransferase* 69 U/L (4-35); Alkaline Phosphatase* 69 U/L (40-150); Anion Gap 9 mEq/L (7-15); Aspartate Amino Transferase* 174 U/L (12-35); Bilirubin Direct* 0.2 mg/dL (0.0-0.5); Calcium* 9.7 mg/dL (8.4-10.6); Carbon Dioxide* 25 mmol/L (20-32); Glucose* 103 mg/dL (60-115); Total Protein* 7.2 g/dL (6.0-8.3)
[2024-11-25 02:11] LABS: D Dimer Quantitative* 0.63 ug/ml (0.00-0.50)
[2024-11-25 02:14] LABS: C Reactive Protein* < 0.5 mg/dL (0.5-1.0)
[2024-11-25] MEDS: KETOROLAC 15 MG/ML inj IVP (02:15)
[2024-11-25] MEDS: 0.9 % SODIUM CHLORIDE 500 ML 500 ML IV (02:15)
--- NOTE | 2024-11-25 02:27 | CRLHL7_ITS ---
For Patients: As a result of the Century Cures Act, medical imaging exams and procedure reports are released immediately into your electronic medical record. You may view this report before your referring provider. If you have questions, please contact your health care provider. Indication: Right forearm pain and swelling. Patient was lifting weights 2 days prior. Technique: Ultrasound examination of the right upper extremity was performed. Grayscale, grayscale compression, color Doppler, spectral Doppler and augmentation technique was utilized for evaluating the venous system. Comparison: None Findings: The following veins were studied in appeared normal on the right: Internal jugular vein, innominate vein, subclavian vein, axillary vein, brachial vein, basilic vein and cephalic vein. Limited sonography of the area of pain in the patient`s forearm shows mildly heterogeneous musculature which may be due to muscle injury. No fluid collection or obvious/maggie discontinuity. Please be aware that this is not a full or formal study of the musculature at the area of pain. Impression: 1. No evidence of right upper extremity venous thrombosis. 2. Please review the comments regarding the musculature of the forearm Dictated by Mario Wade MD @ 11/25/2024 4:20:41 AM (Electronically Signed)
[2024-11-25 02:28] LABS: Basophils Absolute Auto 0.04 K/uL (0.00-0.30); Basophils Percent Auto 0.4 % (0.0-3.0); Hematocrit 49.2 % (33.0-51.0); Hemoglobin* 17.1 gm/dL (12.0-16.0); Immature Granulocytes Abs Auto 0.21 K/uL (0.00-0.30); Immature Granulocytes Pct Auto 1.9 %; Lymphocytes Absolute Auto 3.27 K/uL (0.90-2.90); Lymphocytes Percent Auto 29.8 % (20-44); Mean Corpuscular HGB Conc 35 gm/dL (32-36); Mean Corpuscular Hemoglobin 30 pg (26-34); Mean Corpuscular Volume 85 fL (80-100); Monocytes Percent Auto 10.7 % (0.0-11.0); Neutrophils Absolute Auto 6.27 K/uL (1.7-7.0); Neutrophils Percent Auto 57.2 % (42.0-72.0); Platelet Count* 277 K/uL (140-440); RDW Coefficient of Variation % 12.5 % (11.5-15.5); White Blood Count* 10.96 K/uL (4.50-11.00)
[2024-11-25 02:29] LABS: Slide Review Reflex No
[2024-11-25 04:07] VITALS: BP 135/83; PULSE 70; RESP 16; TEMP 36.7; O2SAT 94
== END 2024-11-25 04:32 | disposition home or self-care (01) ==
PROVIDERS: Emergency Provider Emergency Medicine; PCP Family Medicine
DX: M79.601 Pain in right arm (principal)
CPT/HCPCS: 36415; 71275; 80053; 80076; 84484; 85025; 85379; 86140; 93005; 93971; 94761; 96374; 99284; 99285; J1885; J7030; Q9967

== ENCOUNTER 2025-04-09 07:30 | Emergency (ER) | payer MEDICARE, MEDICAID, SELFPAY ==
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
--- OUTSIDE RECORDS SUMMARY | 2025-04-09 07:34 | XMS_ITS | Encounter Summary ---
Author Organization [facility] Address [address], [place] [address] Care Team Providers Care Surgical Services Coordinator Name Role Phone Shanthi Delgadillo MD Primary Care Provider [phone] Reason for Visit * Reason Comments ERRONEOUS ENTRY Encounter Details Date Type Department Care Team (Late st Contact Info) Description 02/08/[address] [facility] [place] [address] [place] [address] Mika Santos MD [address] [place] [address] ERRONEOUS ENTRY Social History Tobacco Use Types Packs/Day Years Used Date Smoking Tobacco: Former Cigarettes Q uit: 05/24/2021 Smokeless Tobacco: Never Comments:1-2 cigarettes per day Alcohol Use Standard [...] AM CDT Legal Sex Female 5:23 PM LINUX ADMINISTRATOR Gender Identity Male 04/11/2020 10:11 AM CDT Sexual Orientation Straight 04/11/2020 10 :11 AM CDT documented as of this encounter Plan of Treatment Not on file documented as of this encounter Visit Diagnoses Not on filedocumented in this encounter Care Teams Surgical Services Coordinator Relationship Specialty Start Date End Date Shanthi Delgadillo MD [address] [place] [address] PCP - General Obstetrics Gynecology 02/12/25 documented as of this encounter
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
[2025-04-09 07:49] VITALS: BP 104/71; PULSE 98; RESP 18; TEMP 37.2; O2SAT 97
[2025-04-09 08:30] LABS: Mono Screen* Negative (Negative)
[2025-04-09 08:34] LABS: Hematocrit 48.7 % (33.0-51.0); Hemoglobin* 16.9 gm/dL (12.0-16.0); Immature Granulocytes Abs Auto 0.03 K/uL (0.00-0.30); Immature Granulocytes Pct Auto 0.4 %; Mean Corpuscular HGB Conc 35 gm/dL (32-36); Mean Corpuscular Hemoglobin 30 pg (26-34); Mean Corpuscular Volume 85 fL (80-100); RDW Coefficient of Variation % 13.1 % (11.5-15.5); Red Blood Count 5.73 m/uL (4.00-5.20); White Blood Count* 7.36 K/uL (4.50-11.00)
--- NOTE | 2025-04-09 08:39 | ED.GENADULT ---
HPI - General Adult General Chief complaint: Cough Stated complaint: Been feeling very sick Time Seen by Provider: 04/09/25 07:46 History of Present Illness HPI narrative: Patient is a 24-year-old who has multiple medical history including tobacco dependence some gender dysphoria medical marijuana use PTSD, and asthma presents with not feeling well the last few days. Patient has had a hoarse voice, has had some chills, his friend had a similar illness. He has had occasional cough but nothing productive. He has had no chest pain. No leg swelling or edema no history of bleeding or clotting problems. His O2 sat is 97% on room air and he is afebrile. Related Data Home Medications ?Medication ?Instructions ?Recorded ?Confirmed montelukast 10 mg tablet 10 mg PO DAILY 04/02/22 11/25/24 testosterone enanthate 200 mg/mL 70 mg subcut Q7D 04/02/22 11/25/24 intramuscular oil ibuprofen 08/15/24 09/24/24 aripiprazole 15 mg tablet 15 mg PO DAILY 08/16/24 11/25/24 dextroamphetamine-amphetamine 10 1 tab PO HS 08/16/24 11/25/24 mg tablet Held on 09/30/24. Instructions: Doctor's Order dextroamphetamine-amphetamine 15 1 tab PO DAILY 08/16/24 11/25/24 mg tablet Held on 09/30/24. Instructions: Doctor's Order dextroamphetamine-amphetamine ER 1 cap PO BID 08/16/24 11/25/24 10 mg 24hr capsule,extend release Held on 09/30/24. Instructions: Doctor's Order fluticasone furoate 200 1 ea inhalation DAILY 08/16/24 11/25/24 mcg-vilanterol 25 mcg/dose inhalation powder (Breo Ellipta) ipratropium 20 mcg-albuterol 100 1 puff inhalation TID 08/16/24 11/25/24 mcg/actuation mist for inhalation (Combivent Respimat) levalbuterol tartrate 45 2 puff inhalation Q4H PRN wheezing 08/16/24 11/25/24 mcg/actuation aerosol inhaler sertraline 100 mg tablet 200 mg PO DAILY 08/16/24 11/25/24 trazodone 150 mg tablet 150 mg PO QPM 08/28/24 11/25/24 Previous Rx's ?Medication ?Instructions ?Recorded ipratropium 0.5 mg-albuterol 3 mg 3 ml inhalation Q6H PRN #90 mL 06/09/22 (2.5 mg base)/3 mL nebulization soln albuterol sulfate 90 mcg/actuation 2 puff inhalation Q4-6H PRN 09/08/23 aerosol inhaler shortness of breath or wheezing #8.5 grams Allergies Allergy/AdvReac Type Severity Reaction Status Date / Time ondansetron (From Zofran) AdvReac Mild Vomiting Verified 04/09/25 07:52 Review of Systems Status of ROS: Reports: 6 or more systems reviewed and unremarkable except as noted in History and below [facility] Medical History Hypokalemia ?E87.6 - Hypokalemia (ICD-10) Vapes nicotine containing substance ?Z72.0 - Tobacco use (ICD-10) Moderate episode of recurrent major depressive disorder ?F33.1 - Major depressive disorder, recurrent, moderate (ICD-10) Fracture of occipital bone with loss of consciousness ?S02.119A - Unspecified fracture of occiput, initial encounter for closed fracture (ICD-10) ?S06.9X9A - Unspecified intracranial injury with loss of consciousness of unspecified duration, initial encounter (ICD-10) Disruptive mood dysregulation disorder ?F34.81 - Disruptive mood dysregulation disorder (ICD-10) Suicidal ideation (10/04/15) ?R45.851 - Suicidal ideations (ICD-10) 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) ?F06.30 - Mood disorder due to known physiological condition, unspecified (ICD-10) ?S06.9XAS - Unspecified intracranial injury with loss of consciousness status unknown, sequela (ICD-10) Colitis due to Clostridium difficile ?A04.72 - Enterocolitis due to Clostridium difficile, not specified as recurrent (ICD-10) ADHD ?F90.9 - Attention-deficit hyperactivity disorder, unspecified type (ICD-10) Depression ?F32.A - Depression, unspecified (ICD-10) Anxiety ?F41.9 - Anxiety disorder, unspecified (ICD-10) Breast removal, prophylactic ?Z40.01 - Encounter for prophylactic removal of breast (ICD-10) Traumatic brain injury ?S06.9XAA - Unspecified intracranial injury with loss of consciousness status unknown, initial encounter (ICD-10) Surgical History S/P mastectomy, bilateral (~04/2021) ?Z90.13 - Acquired absence of bilateral breasts and nipples (ICD-10) [place] teeth removed ?K08.409 - Partial loss of teeth, unspecified cause, unspecified class (ICD-10) Family History Maternal Grandmother Breast cancer Depression Heart disease Paternal Grandfather Heart disease Thyroid cancer Social History Narrative: Unemployed. Quit smoking cigarettes in 2017, Vapes. Rare alcohol use. Frequent marijuana use. Admitted to nurse that he has done fentanyl and crushed and snorted his Adderall in the past week. What is your current living situation?: I presently have a place to live Problems where you live: no known problems Problems where you live details: n/a In the past 12 months, utilities in danger of being shut off: no In past 12 months, lack of transportation kept you from medical appts, meetings, work, or getting things needed for daily living: no In the past 12 mos, have been you worried that your food would run out before you had money to buy more?: never true In the past 12 mos, the food you bought just didn't last and you didn't have money to buy more?: never true Highest level of school completed/degree received: high school graduate Smoking Status: Former smoker Do you use any of these nicotine containing products: E-Cigarettes and Vaping Products Nicotine containing products detail: Frequently Vapes Second hand tobacco smoke exposure: No How often do you have a drink containing alcohol: monthly or less How many standard drinks containing alcohol do you have on a typical day: 1 or 2 How often do you have six or more drinks on one occasion: Never AUDIT-C Alcohol total score: 1 Non-prescribed substance use: marijuana (any form) Non-prescribed substance use details: medical marijuana card Caffeine: No (Rarely) How often does anyone, including family, friends and others, physically hurt you: never How often does anyone, including family, friends and others, insult or talk down to you: rarely How often does anyone, including family, friends and others, threaten you with harm: never How often does anyone, including family, friends and others, scream or curse at you: rarely Do you think of yourself as: straight/heterosexual Gender Identity: male service: No Health Related Social Needs: Other personal risk factors, not elsewhere classified (Z91.89) Exam Narrative: Exam Narrative: Objective: Vital signs are within normal limits Alert orient x3 No distress Very pleasant HEENT shows slightly reddened throat neck supple chest is clear no rales or wheezing heart rhythm regular heart murmur Extremities are no edema neurologic nonfocal, good peripheral perfusion noted. Const: Vital Signs, click to edit/add: Vital Signs - 24 hr 04/09/25 07:49 04/09/25 09:00 Temperature 99 F 99 F Pulse Rate [Pulse Oximeter] 98 84 Respiratory Rate 18 18 Blood Pressure [Ri ght Upper Arm] 104/71 Pulse Oximetry 97 99 Oxygen Delivery Me thod Room Air Room Air Course Vital Signs Vital signs: Initial Vital Signs Temperature 99 F 04/09/25 07:49 Temperature Source Temporal Artery Scan 04/09/25 07:49 Pulse Rate 98 04/09/25 07:49 Respiratory Rate 18 04/09/25 07:49 Blood Pressure 104/71 04/09/25 07:49 Blood Pressure Mean 82 04/09/25 07:49 Blood Pressure Position Sitting 04/09/25 07:49 Pulse Oximetry 97 04/09/25 07:49 Oxygen Delivery Method Room Air 04/09/25 07:49 Vital Signs Temperature 99 F 04/09/25 07:49 Pulse Rate 98 04/09/25 07:49 Respiratory Rate 18 04/09/25 07:49 Blood Pressure 104/71 04/09/25 07:49 Pulse Oximetry 97 04/09/25 07:49 Oxygen Delivery Method Room Air 04/09/25 07:49 Temperature 99 F 04/09/25 09:00 Pulse Rate 84 04/09/25 09:00 Respiratory Rate 18 04/09/25 09:00 Blood Pressure 104/71 04/09/25 07:49 Pulse Oximetry 99 04/09/25 09:00 Oxygen Delivery Method Room Air 04/09/25 09:00 Medical Decision Making MDM Narrative Medical decision making narrative: 24-year-old patient with viral type syndrome. Will check mono, CBC, CRP, Chem profile and a triple swab. Will also check a strep test. Disposition pending findings. Addendum 9:00 a.m.: The patient is positive for COVID, other labs look reassuring, strep test is still pending but I think this is all related to COVID. Symptomatic management with Tylenol Advil, rest, isolation till he feels better. Return as needed. He was comfortable plan. Lab Data Labs: Lab Results 04/09/25 04/09/25 Range/Units 07:55 08:18 WBC 7.36 (4.50-11.00) K/uL RBC 5.73 H (4.00-5.20) m/uL Hgb 16.9 H (12.0-16.0) gm/dL Hct 48.7 (33.0-51.0) % MCV 85 (80-100) fL MCH 30 (26-34) pg MCHC 35 (32-36) gm/dL RDW Coeff of Adriano 13.1 (11.5-15.5) % Plt Count 203 (140-440) K/uL Neut % (Auto) 64.0 (42.0-72.0) % Lymph % (Auto) 12.8 L (20-44) % [place] % (Auto) 19.8 H (0.0-11.0) % Eos % (Auto) 2.6 (0.0-7.0) % Baso % (Auto) 0.4 (0.0-3.0) % Neut # (Auto) 4.71 (1.7-7.0) K/uL Lymph # (Auto) 0.90 (0.90-2.90) K/uL [place] # (Auto) 1.50 H (0.00-0.90) K/UL Eos # (Auto) 0.19 (0.00-0.50) K/uL Baso # (Auto) 0.03 (0.00-0.30) K/uL Abs Immat Gran (auto) 0.03 (0.00-0.30) K/uL Imm/Tot Granulo (auto) 0.4 % Sodium 136 (135-149) mmol/L Potassium 3.7 (3.6-5.1) mmol/L Chloride 107 (96-114) mmol/L Carbon Dioxide 22 (20-32) mmol/L Anion Gap 7 (7-15) mEq/L BUN 6 (5-24) mg/dL Creatinine 0.8 (0.5-1.5) mg/dL Estimated GFR 105 ml/min Glucose 98 (60-115) mg/dL Calcium 8.7 (8.4-10.6) mg/dL C-Reactive Protein 7.0 H (0.5-1.0) mg/dL SARS-CoV-2 (PCR) POSITIVE SARS-CoV-2 A (Negative) Monoscreen Negative (Negative) Influenza Type A (PCR) Negative PCR FLU A (Negative) Influenza Type B (PCR) Negative PCR FLU B (Negative) RSV (PCR) Negative PCR RSV (Negative) Group A Strep DNA NOT DETECTED (Not Detectd) Discharge Plan Discharge Clinical Impression: COVID-19 Patient Disposition: Home, Self-Care Condition: Stable Instructions: COVID-19 (Coronavirus Disease 2019) (ED) Additional Instructions: Rest, light activity, off work for few days, return to the usual activities when feeling better, would isolate until you feel better and do not have a fever. Diet as tolerated Activity Level: Light activity Discharge Diet: Regular Prescriptions: No Action albuterol sulfate 90 mcg/actuation HFA aerosol inhaler 2 puff inhalation Q4-6H PRN (Reason: shortness of breath or wheezing) Qty: 8.5 3RF montelukast 10 mg tablet 10 mg PO DAILY testosterone enanthate 200 mg/mL oil 70 mg subcut Q7D Rx Instructions: [facility] ipratropium-albuterol 0.5 mg-3 mg(2.5 mg base)/3 mL solution for nebulization 3 ml inhalation Q6H PRNQty: 90 1RF ibuprofen dextroamphetamine-amphetamine 10 mg tablet 1 tab PO HS aripiprazole 15 mg tablet 15 mg PO DAILY dextroamphetamine-amphetamine 15 mg tablet 1 tab PO DAILY dextroamphetamine-amphetamine 10 mg capsule,extended release 24hr 1 cap PO BID Combivent Respimat 20-100 mcg/actuation mist 1 puff inhalation TID sertraline 100 mg tablet 200 mg PO DAILY fluticasone furoate-vilanterol [Breo Ellipta] 200-25 mcg/dose blister with device 1 ea inhalation DAILY levalbuterol tartrate 45 mcg/actuation HFA aerosol inhaler 2 puff INHALATION Q4H PRN (Reason: wheezing) trazodone 150 mg tablet 150 mg PO QPM Follow Up/Referrals: Shanthi Delgadillo MD [Primary Care Provider, Obstetrics] Stand Alone Forms: [employer] Info Instructions
[2025-04-09 08:40] LABS: Lymphocytes Absolute Auto 0.90 K/uL (0.90-2.90)
[2025-04-09 08:41] LABS: Slide Review Reflex No
[2025-04-09 08:43] LABS: PCR FLU A Negative PCR FLU A (Negative); PCR FLU B Negative PCR FLU B (Negative); PCR RSV Negative PCR RSV (Negative); SARS PCR* POSITIVE SARS-CoV-2 (Negative)
[2025-04-09 08:47] LABS: Chloride* 107 mmol/L (96-114); Potassium* 3.7 mmol/L (3.6-5.1); Sodium* 136 mmol/L (135-149)
[2025-04-09 08:51] LABS: Anion Gap 7 mEq/L (7-15); Blood Urea Nitrogen* 6 mg/dL (5-24); Calcium* 8.7 mg/dL (8.4-10.6); Carbon Dioxide* 22 mmol/L (20-32); Creatinine* 0.8 mg/dL (0.5-1.5); Estimated Glomerular Filt Rate 105 ml/min; Glucose* 98 mg/dL (60-115)
[2025-04-09 08:58] LABS: Strep A DNA Probe* NOT DETECTED (Not Detectd)
[2025-04-09 09:00] VITALS: PULSE 84; RESP 18; TEMP 37.2; O2SAT 99
== END 2025-04-09 09:10 | disposition home or self-care (01) ==
PROVIDERS: Emergency Provider Family Medicine; PCP Family Medicine
DX: U07.1 COVID-19 (principal)
CPT/HCPCS: 36415; 80048; 85025; 86140; 86308; 87631; 87651; 99283; 99284

== ENCOUNTER 2025-05-05 23:12 | Emergency (ER) | payer MEDICARE, MEDICAID, SELFPAY ==
[2025-05-05 23:15] VITALS: BP 110/71; PULSE 91; RESP 20; TEMP 36.6; O2SAT 95; BMI 26.6
--- NOTE | 2025-05-05 23:48 | CRLHL7_ITS ---
For Patients: As a result of the Century Cures Act, medical imaging exams and procedure reports are released immediately into your electronic medical record. You may view this report before your referring provider. If you have questions, please contact your health care provider. INDICATION: Shortness of breath. TECHNIQUE: Chest 2 views. COMPARISON: 09/30/2024. FINDINGS: Cardiovascular and mediastinum: Heart size and vasculature are normal in caliber and appearance. Lungs and pleural spaces: No focal consolidation, pleural effusion, or pneumothorax. Bones and soft tissues: Unremarkable for age. IMPRESSION: No evidence of an acute pulmonary process. Dictated by Amando Corral MD @ 05/06/2025 12:17:51 AM (Electronically Signed)
--- NOTE | 2025-05-05 23:51 | ED.GENADULT ---
HPI - General Adult General Chief complaint: Shortness of Breath/Dyspnea <Shahrzad Carney MD - Last Filed: 05/07/25 11:57> Stated complaint: trouble breathing <Shahrzad Carney MD - Last Filed: 05/07/25 11:57> Time Seen by Provider: 05/05/25 23:45 <Shahrzad Carney MD - Last Filed: 05/07/25 11:57> Source: patient <Shahrzad Carney MD - Last Filed: 05/07/25 11:57> Mode of arrival: ambulatory <Shahrzad Carney MD - Last Filed: 05/07/25 11:57> Limitations: no limitations <Shahrzad Carney MD - Last Filed: 05/07/25 11:57> History of Present Illness HPI narrative: 24-year-old transgender male presenting today with chest pain and shortness of breath. Symptoms have been going on for about 3 weeks. Patient was diagnosed with COVID-19 approximately 3 weeks ago and this is when it all started. He states that he is just not getting any better. He is central. Chest pain that is fairly constant. He feels short of breath all the time. He is a significant cough, is generally nonproductive. He does have a history of asthma and has been taking his inhalers including albuterol and Combivent daily. They do not seem to be helping. No fevers or chills. No changes in his appetite. He does feels more tired than usual. He does continue to smoke both (vape) nicotine and marijuana. <Shahrzad Carney MD - Last Filed: 05/07/25 11:57> Related Data Home medications: Home Medications ?Medication ?Instructions ?Recorded ?Confirmed montelukast 10 mg tablet 10 mg PO DAILY 04/02/22 05/05/25 testosterone enanthate 200 mg/mL 80 mg subcut Q7D 04/02/22 05/05/25 intramuscular oil ibuprofen 08/15/24 09/24/24 aripiprazole 15 mg tablet 15 mg PO DAILY 08/16/24 05/05/25 dextroamphetamine-amphetamine 10 1 tab PO HS 08/16/24 05/05/25 mg tablet Held on 09/30/24. Instructions: Doctor's Order dextroamphetamine-amphetamine 15 1 tab PO DAILY 08/16/24 11/25/24 mg tablet Held on 09/30/24. Instructions: Doctor's Order dextroamphetamine-amphetamine ER 1 cap PO BID 08/16/24 05/05/25 10 mg 24hr capsule,extend release ipratropium 20 mcg-albuterol 100 1 puff inhalation TID 08/16/24 05/05/25 mcg/actuation mist for inhalation (Combivent Respimat) levalbuterol tartrate 45 2 puff inhalation Q4H PRN wheezing 08/16/24 11/25/24 mcg/actuation aerosol inhaler sertraline 100 mg tablet 150 mg PO DAILY 08/16/24 05/05/25 trazodone 150 mg tablet 150 mg PO QPM 08/28/24 05/05/25 Held on 05/05/25. Instructions: Doctor's Order Previous Rx's ?Medication ?Instructions ?Recorded ipratropium 0.5 mg-albuterol 3 mg 3 ml inhalation Q6H PRN #90 mL 06/09/22 (2.5 mg base)/3 mL nebulization soln albuterol sulfate 90 mcg/actuation 2 puff inhalation Q4-6H PRN 09/08/23 aerosol inhaler shortness of breath or wheezing #8.5 grams <Shahrzad Carney MD - Last Filed: 05/07/25 11:57> Allergies/adverse reactions: Allergies Allergy/AdvReac Type Severity Reaction Status Date / Time ondansetron (From Zofran) AdvReac Mild Vomiting Verified 05/06/25 00:11 <Shahrzad Carney MD - Last Filed: 05/07/25 11:57> Review of Systems Status of ROS: Reports: 10 or more systems reviewed and unremarkable except as noted in History and below <Shahrzad Carney MD - Last Filed: 05/07/25 11:57> [facility] Medical History: Medical History Hypokalemia ?E87.6 - Hypokalemia (ICD-10) Vapes nicotine containing substance ?Z72.0 - Tobacco use (ICD-10) Moderate episode of recurrent major depressive disorder ?F33.1 - Major depressive disorder, recurrent, moderate (ICD-10) Fracture of occipital bone with loss of consciousness ?S02.119A - Unspecified fracture of occiput, initial encounter for closed fracture (ICD-10) ?S06.9X9A - Unspecified intracranial injury with loss of consciousness of unspecified duration, initial encounter (ICD-10) Disruptive mood dysregulation disorder ?F34.81 - Disruptive mood dysregulation disorder (ICD-10) Suicidal ideation (10/04/15) ?R45.851 - Suicidal ideations (ICD-10) 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) ?F06.30 - Mood disorder due to known physiological condition, unspecified (ICD-10) ?S06.9XAS - Unspecified intracranial injury with loss of consciousness status unknown, sequela (ICD-10) Colitis due to Clostridium difficile ?A04.72 - Enterocolitis due to Clostridium difficile, not specified as recurrent (ICD-10) ADHD ?F90.9 - Attention-deficit hyperactivity disorder, unspecified type (ICD-10) Depression ?F32.A - Depression, unspecified (ICD-10) Anxiety ?F41.9 - Anxiety disorder, unspecified (ICD-10) Breast removal, prophylactic ?Z40.01 - Encounter for prophylactic removal of breast (ICD-10) Traumatic brain injury ?S06.9XAA - Unspecified intracranial injury with loss of consciousness status unknown, initial encounter (ICD-10) <Shahrzad Carney MD - Last Filed: 05/07/25 11:57> Surgical History: Surgical History S/P mastectomy, bilateral (~04/2021) ?Z90.13 - Acquired absence of bilateral breasts and nipples (ICD-10) [place] teeth removed ?K08.409 - Partial loss of teeth, unspecified cause, unspecified class (ICD-10) <Shahrzad Carney MD - Last Filed: 05/07/25 11:57> Family History: Family History Maternal Grandmother Breast cancer Depression Heart disease Paternal Grandfather Heart disease Thyroid cancer <Shahrzad Carney MD - Last Filed: 05/07/25 11:57> Social History: Social History Narrative: Unemployed. Quit smoking cigarettes in 2017, Vapes. Rare alcohol use. Frequent marijuana use. Admitted to nurse that he has done fentanyl and crushed and snorted his Adderall in the past week. What is your current living situation?: I presently have a place to live Problems where you live: no known problems Problems where you live details: n/a In the past 12 months, utilities in danger of being shut off: no In past 12 months, lack of transportation kept you from medical appts, meetings, work, or getting things needed for daily living: no In the past 12 mos, have been you worried that your food would run out before you had money to buy more?: never true In the past 12 mos, the food you bought just didn't last and you didn't have money to buy more?: never true Highest level of school completed/degree received: high school graduate Smoking Status: Current some day smoker What tobacco products do you use: cigarettes Years smoked: 11 Do you use any of these nicotine containing products: E-Cigarettes and Vaping Products Nicotine containing products detail: Frequently Vapes Second hand tobacco smoke exposure: Yes How often do you have a drink containing alcohol: monthly or less How many standard drinks containing alcohol do you have on a typical day: 1 or 2 How often do you have six or more drinks on one occasion: Never AUDIT-C Alcohol total score: 1 Non-prescribed substance use: marijuana (any form) Non-prescribed substance use details: medical marijuana card Caffeine: No (Rarely) How often does anyone, including family, friends and others, physically hurt you: never How often does anyone, including family, friends and others, insult or talk down to you: rarely How often does anyone, including family, friends and others, threaten you with harm: never How often does anyone, including family, friends and others, scream or curse at you: rarely Do you think of yourself as: straight/heterosexual Gender Identity: male service: No Health Related Social Needs: Other personal risk factors, not elsewhere classified (Z91.89) <Shahrzad Carney MD - Last Filed: 05/07/25 11:57> Exam Narrative: Exam Narrative: Well-nourished well-developed patient in no acute distress. Alert and oriented. Answers questions appropriately. Mood and affect are appropriate. Thoughts are goal oriented and rational. No tangential or magical thinking noted. Patient speaks in full sentences without needing to catch his breath. Voice is raspy. Smells very strongly of marijuana. HEENT: Normocephalic atraumatic. Pupils are equally round reactive to light. Extraocular muscles are intact. Conjunctivae are moist without any icterus noted. Moist mucous membranes. Posterior pharynx is normal. Neck is soft. Cardiovascular: Heart is regular rate and rhythm S1 and S2 are present without any murmurs. Lungs: Clear to auscultation bilaterally no wheezes rhonchi or rales are appreciated. Patient takes deep breaths without any discomfort. Skin: Well perfused without any obvious rashes. <Shahrzad Carney MD - Last Filed: 05/07/25 11:57> Const: Vital Signs, click to edit/add: Vital Signs - 24 hr 05/05/25 23:15 Temperature 98 F Pulse Rate [Pulse Oximeter] 91 Respiratory Rate 20 Blood Pressure [Ri ght Upper Arm] 110/71 Pulse Oximetry 95 <Shahrzad Carney MD - Last Filed: 05/07/25 11:57> Vital Signs, click to edit/add: Vital Signs - 24 hr 05/05/25 23:15 Temperature 98 F Pulse Rate [Pulse Oximeter] 91 Respiratory Rate 20 Blood Pressure [Ri ght Upper Arm] 110/71 Pulse Oximetry 95 <Jane Rashid MD - Last Filed: 05/06/25 01:36> Course Course ED Course: Differential is broad but includes pericarditis, pneumonia, PE post COVID, long COVID, viral infection. Less likely an asthma exacerbation as the patient is vitals are unremarkable and his pulmonary exam is normal. Will proceed with laboratory investigations and chest x-ray. Consider CT if D-dimer is elevated. <Shahrzad Carney MD - Last Filed: 05/07/25 11:57> Reevaluation(s) Time of Reevaluation #1: 01:32 <Jane Rashid MD - Last Filed: 05/06/25 01:36> Reevaluation #1: Dr. Rashid: Update: Patient feeling much better after fluids. We discussed the lab findings. All are quite reassuring. X-ray reassuring as well. This could be a concept of viral stacking or just long COVID. Either way, there do not seem to be any emergent threats to health. I would recommend continuing to push fluids, gradual return to activity and following up with primary care provider if still not improved in a week to do other workups that are prohibitive in an emergency department. He verbalized understanding and agreement of plan. Alarm symptoms reviewed and written instructions are provided <Jane Rashid MD - Last Filed: 05/06/25 01:36> Vital Signs Vital signs: Initial Vital Signs Respiratory Effort Normal, Spontaneous, Non-Labored 05/05/25 23:14 Respiratory Depth Normal 05/05/25 23:14 Respiratory Pattern Normal 05/05/25 23:14 Vital Signs Temperature 98 F 05/05/25 23:15 Pulse Rate 91 05/05/25 23:15 Respiratory Rate 20 05/05/25 23:15 Blood Pressure 110/71 05/05/25 23:15 Pulse Oximetry 95 05/05/25 23:15 Temperature 98 F 05/05/25 23:15 Pulse Rate 66 05/06/25 02:00 Respiratory Rate 18 05/06/25 02:00 Blood Pressure 97/52 L 05/06/25 02:00 Pulse Oximetry 95 05/05/25 23:15 <Shahrzad Carney MD - Last Filed: 05/07/25 11:57> Initial Vital Signs Respiratory Effort Normal, Spontaneous, Non-Labored 05/05/25 23:14 Respiratory Depth Normal 05/05/25 23:14 Respiratory Pattern Normal 05/05/25 23:14 Vital Signs Temperature 98 F 05/05/25 23:15 Pulse Rate 91 05/05/25 23:15 Respiratory Rate 20 05/05/25 23:15 Blood Pressure 110/71 05/05/25 23:15 Pulse Oximetry 95 05/05/25 23:15 Temperature 98 F 05/05/25 23:15 Pulse Rate 66 05/06/25 02:00 Respiratory Rate 18 05/06/25 02:00 Blood Pressure 97/52 L 05/06/25 02:00 Pulse Oximetry 95 05/05/25 23:15 <Jane Rashid MD - Last Filed: 05/06/25 01:36> Medications Administered Medications: Discontinued Medications Generic Name Dose Route Start Last Admin Trade Name Freq PRN Reason Stop Dose Admin Sodium Chloride 1,000 mls @ 1,000 mls/hr 05/06/25 00:45 05/06/25 02:02 0.9 % Sodium Chloride 1000 Ml IV 05/06/25 01:44 Infused .Q1H DIMITRIS Infusion <Shahrzad Carney MD - Last Filed: 05/07/25 11:57> Discontinued Medications Generic Name Dose Route Start Last Admin Trade Name Chelsea PRN Reason Stop Dose Admin Sodium Chloride 1,000 mls @ 1,000 mls/hr 05/06/25 00:45 05/06/25 02:02 0.9 % Sodium Chloride 1000 Ml IV 05/06/25 01:44 Infused .Q1H DIMITRIS Infusion <Jane Rashid MD - Last Filed: 05/06/25 01:36> Medical Decision Making Lab Data Lab results reviewed: Yes I reviewed the patient's lab results <Jane Rashid MD - Last Filed: 05/06/25 01:36> Lab results narrative: Labs reassuring. Slightly dehydrated but no significant leukocytosis, no D-dimer elevation, electrolyte abnormality or renal abnormality. <Jane Rashid MD - Last Filed: 05/06/25 01:36> Labs: Lab Results 05/05/25 Range/Units 23:58 WBC 8.48 (4.50-11.00) K/uL RBC 5.60 H (4.00-5.20) m/uL Hgb 16.6 H (12.0-16.0) gm/dL Hct 47.4 (33.0-51.0) % MCV 85 (80-100) fL MCH 30 (26-34) pg MCHC 35 (32-36) gm/dL RDW Coeff of Adriano 12.4 (11.5-15.5) % Plt Count 275 (140-440) K/uL Neut % (Auto) 45.8 (42.0-72.0) % Lymph % (Auto) 35.7 (20-44) % Frio % (Auto) 8.7 (0.0-11.0) % Eos % (Auto) 8.6 H (0.0-7.0) % Baso % (Auto) 0.7 (0.0-3.0) % Neut # (Auto) 3.88 (1.7-7.0) K/uL Lymph # (Auto) 3.03 H (0.90-2.90) K/uL Frio # (Auto) 0.70 (0.00-0.90) K/UL Eos # (Auto) 0.70 H (0.00-0.50) K/uL Baso # (Auto) 0.06 (0.00-0.30) K/uL Abs Immat Gran (auto) 0.04 (0.00-0.30) K/uL Imm/Tot Granulo (auto) 0.5 % ESR < 2 L (2-20) mm/hr D-Dimer Quant (PE/DVT) 0.22 (0.00-0.50) ug/ml Sodium 139 (135-149) mmol/L Potassium 3.3 L (3.6-5.1) mmol/L Chloride 104 (96-114) mmol/L Carbon Dioxide 25 (20-32) mmol/L Anion Gap 10 (7-15) mEq/L BUN 8 (5-24) mg/dL Creatinine 1.0 (0.5-1.5) mg/dL Estimated Creat Clear 81.21 Estimated GFR 81 ml/min Glucose 98 (60-115) mg/dL Lactate 2.3 H (0.5-1.9) mmol/L Calcium 9.1 (8.4-10.6) mg/dL Total Bilirubin 0.9 (0.1-1.5) mg/dL Direct Bilirubin 0.2 (0.0-0.5) mg/dL AST 36 H (12-35) U/L ALT 28 (4-35) U/L Alkaline Phosphatase 75 (40-150) U/L Troponin I < 0.01 (0.01-0.04) ng/mL C-Reactive Protein < 0.5 L (0.5-1.0) mg/dL Total Protein 7.4 (6.0-8.3) g/dL Albumin 4.3 (3.3-5.0) g/dL Monoscreen Negative (Negative) <Shahrzad Carney MD - Last Filed: 05/07/25 11:57> Lab Results 05/05/25 Range/Units 23:58 WBC 8.48 (4.50-11.00) K/uL RBC 5.60 H (4.00-5.20) m/uL Hgb 16.6 H (12.0-16.0) gm/dL Hct 47.4 (33.0-51.0) % MCV 85 (80-100) fL MCH 30 (26-34) pg MCHC 35 (32-36) gm/dL RDW Coeff of Adriano 12.4 (11.5-15.5) % Plt Count 275 (140-440) K/uL Neut % (Auto) 45.8 (42.0-72.0) % Lymph % (Auto) 35.7 (20-44) % Frio % (Auto) 8.7 (0.0-11.0) % Eos % (Auto) 8.6 H (0.0-7.0) % Baso % (Auto) 0.7 (0.0-3.0) % Neut # (Auto) 3.88 (1.7-7.0) K/uL Lymph # (Auto) 3.03 H (0.90-2.90) K/uL Frio # (Auto) 0.70 (0.00-0.90) K/UL Eos # (Auto) 0.70 H (0.00-0.50) K/uL Baso # (Auto) 0.06 (0.00-0.30) K/uL Abs Immat Gran (auto) 0.04 (0.00-0.30) K/uL Imm/Tot Granulo (auto) 0.5 % ESR < 2 L (2-20) mm/hr D-Dimer Quant (PE/DVT) 0.22 (0.00-0.50) ug/ml Sodium 139 (135-149) mmol/L Potassium 3.3 L (3.6-5.1) mmol/L Chloride 104 (96-114) mmol/L Carbon Dioxide 25 (20-32) mmol/L Anion Gap 10 (7-15) mEq/L BUN 8 (5-24) mg/dL Creatinine 1.0 (0.5-1.5) mg/dL Estimated Creat Clear 81.21 Estimated GFR 81 ml/min Glucose 98 (60-115) mg/dL Lactate 2.3 H (0.5-1.9) mmol/L Calcium 9.1 (8.4-10.6) mg/dL Total Bilirubin 0.9 (0.1-1.5) mg/dL Direct Bilirubin 0.2 (0.0-0.5) mg/dL AST 36 H (12-35) U/L ALT 28 (4-35) U/L Alkaline Phosphatase 75 (40-150) U/L Troponin I < 0.01 (0.01-0.04) ng/mL C-Reactive Protein < 0.5 L (0.5-1.0) mg/dL Total Protein 7.4 (6.0-8.3) g/dL Albumin 4.3 (3.3-5.0) g/dL Monoscreen Negative (Negative) <Jane Rashid MD - Last Filed: 05/06/25 01:36> Imaging Data Chest x-ray: Attestation: I have reviewed the pertinent imaging results. <Shahrzad Carney MD - Last Filed: 05/07/25 11:57> My impression: Normal appearing chest x-ray. No infiltrate, pneumonia or other abnormality. <Jane Rashid MD - Last Filed: 05/06/25 01:36> Radiologist's impression: TECHNIQUE: Chest 2 views. COMPARISON: 09/30/2024. FINDINGS: Cardiovascular and mediastinum: Heart size and vasculature are normal in caliber and appearance. Lungs and pleural spaces: No focal consolidation, pleural effusion, or pneumothorax. Bones and soft tissues: Unremarkable for age. IMPRESSION: No evidence of an acute pulmonary process. <Shahrzad Carney MD - Last Filed: 05/07/25 11:57> Discharge Plan Discharge Clinical Impression: Viral illness, Dehydration, mild <Shahrzad Carney MD - Last Filed: 05/07/25 11:57> Patient Disposition: Home, Self-Care <Shahrzad Carney MD - Last Filed: 05/07/25 11:57> Condition: Improved <Shahrzad Carney MD - Last Filed: 05/07/25 11:57> Instructions: Viral Syndrome (ED) <Shahrzad Carney MD - Last Filed: 05/07/25 11:57> Additional Instructions: As we discussed, labs are reassuring. There are no elevated inflammatory markers, signs of infection, signs of blood clots, heart abnormalities or other abnormal findings on her chest x-ray either. This is all great news. Most likely what is causing her symptoms is prolonged COVID or a concept that we call ?viral stacking?. This is where you do not fully get over 1 illness before catching the next 1 and there are several going around right now. Continue to push fluids. I am glad that the IV fluids have made you feel somewhat better. Please make a follow-up with her primary care provider for additional workup if things have not improved in 1 week. It is okay to use Tylenol and/or ibuprofen as needed. You are cleared return to all work duties. <Shahrzad Carney MD - Last Filed: 05/07/25 11:57> Activity Level: No Restrictions <Shahrzad Carney MD - Last Filed: 05/07/25 11:57> No Restrictions <Jane Rashid MD - Last Filed: 05/06/25 01:36> Discharge Diet: Regular <Shahrzad Carney MD - Last Filed: 05/07/25 11:57> Regular <Jane Rashid MD - Last Filed: 05/06/25 01:36> Prescriptions: No Action albuterol sulfate 90 mcg/actuation HFA aerosol inhaler 2 puff inhalation Q4-6H PRN (Reason: shortness of breath or wheezing) Qty: 8.5 3RF montelukast 10 mg tablet 10 mg PO DAILY testosterone enanthate 200 mg/mL oil 80 mg subcut Q7D Rx Instructions: FRIDAYS ipratropium-albuterol 0.5 mg-3 mg(2.5 mg base)/3 mL solution for nebulization 3 ml inhalation Q6H PRNQty: 90 1RF ibuprofen dextroamphetamine-amphetamine 10 mg tablet 1 tab PO HS aripiprazole 15 mg tablet 15 mg PO DAILY dextroamphetamine-amphetamine 15 mg tablet 1 tab PO DAILY dextroamphetamine-amphetamine 10 mg capsule,extended release 24hr 1 cap PO BID Combivent Respimat 20-100 mcg/actuation mist 1 puff inhalation TID sertraline 100 mg tablet 150 mg PO DAILY levalbuterol tartrate 45 mcg/actuation HFA aerosol inhaler 2 puff INHALATION Q4H PRN (Reason: wheezing) trazodone 150 mg tablet 150 mg PO QPM <Shahrzad Carney MD - Last Filed: 05/07/25 11:57> Follow Up/Referrals: Shanthi Delgadillo MD [Primary Care Provider, Obstetrics] <Shahrzad Carney MD - Last Filed: 05/07/25 11:57> Stand Alone Forms: My[facility] Info Instructions <Shahrzad Carney MD - Last Filed: 05/07/25 11:57>
--- OUTSIDE RECORDS SUMMARY | 2025-05-05 23:56 | XMS_ITS | Encounter Summary ---
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
--- OUTSIDE RECORDS SUMMARY | 2025-05-05 23:56 | XMS_ITS | Clinical Summary ---
Author Organization [facility] Address [address], [place] [address] Care Team Providers Care Teacher Asst Name Role Phone Shanthi Delgadillo MD Primary Care Provider [phone] Source Comments You are receiving this document as you are listed as the primary care provider,follow-up provider, or the patient has been referred to you for consultation.This is in compliance with the Medicare and[facility] EHR Incentive Program,which states Providers who transition their patient to another setting of careor provider of care or refers their patient to another provider of care shouldprovide summary care record for each transition of care or referral. [facility] Active Allergy Reactions Criticality Noted Date Comments Ondansetron Nausea And Vomiting 04/11/2020 Medications sertraline (ZOLOFT) 50 MG tablet Take 1 Tablet (50 mg) by mouth daily. Active sertraline (ZOLOFT) 100 MG tablet Take 1 Tablet (100 mg) by mouth daily. Active traZODone (DESYREL) 150 MG tablet Take 1 Tablet (150 mg) by mouth daily. 020 Active sharps containerIndica tions:Gender dysphoria Use to dispose of needles once a week. 1 Each 020 Active ARIPiprazole (ABILIFY) 5 MG tablet Active ALBUterol sulfate HFA 108 (90 Base) MCG/ACT inhaler INHALE 1 TO 2 PUFFS EVERY 4 HOURS NEEDED FOR WHEEZING OR SHORTNESS OF BREATH. 18 Each 022 Active montelukast (SINGULAIR) 10 MG tablet Take 1 Tablet (10 mg) by mouth daily. Active methylphenidate (RITALIN LA) 30 MG 24 hour release capsule Take 1 Capsule (30 mg) by mouth every morning. Active fluticasone propionate (FLONASE) 50 MCG/ACT nasal solution Place into both nostrils. Active COMBIVENT RESPIMAT 20-100 MCG/ACT inhaler 1 Puff three times a day. Active SYMBICORT 160-4.5 MCG/ACT inhaler Inhale 2 Puffs two times a day. Active testosterone cypionate (DEPO-TESTOSTER ONE) 200 MG/ML injectionIndica tions:Gender dysphoria Inject 0.35 mL (70 mg) intramuscularly once every week. 5 mL Active ipratropium-alb uterol (DUONEB) 0.5-2.5 (3) mg/3ml nebulizer solutionIndicat ions:Moderate persistent asthma with acute exacerbation (HRC) INHALE 3 ML EVERY 4 HOURS NEEDED FOR WHEEZING 120 mL 4 Active testosterone enanthate (DELATESTRYL) 200 MG/ML injectionIndica tions:Gender dysphoria INJECT 0.35ML (70MG) SUBCUTANEOUSLY WEEKLY. STRENGTH: 200 MG/ML 13 mL Active NEEDLE, DISP, 18 G (MONOJECT HYPO 18GX1) 18G X 1Indications:G joy dysphoria TO USE TO DRAW UP WEEKLY TESTOSTERONE INJECTION. 13 Each 025 Active NEEDLE, DISP, 25 G (BD DISP NEEDLES) 25G X 5/8Indications :Gender dysphoria Take 1 Each as instructed once a week. 25 Each 025 Active NEEDLE, DISP, 25 G (BD DISP NEEDLES) 25G X 5/8Indications :Gender dysphoria Take 1 Each as instructed once a week. 25 Each 3 025 Active Syringe, Disposable, (BD TUBERCULIN SYRINGE) 1 MLIndications:G joy dysphoria TO USE WITH WEEKLY TESTOSTERONE INJECTIONS. 25 Each 025 Active Syringe, Disposable, (B-D SYRINGE SLIP TIP 1CC) 1 MLIndications:G joy dysphoria TO USE WITH WEEKLY TESTOSTERONE INJECTIONS. 13 Each 3 025 Active Syringe, Disposable, (BD TUBERCULIN SYRINGE) 1 MLIndications:G joy dysphoria TO USE WITH WEEKLY TESTOSTERONE INJECTIONS. 25 Each 025 2024 Discontinued Active Problems Problem Noted Date Diagnosed Date PTSD (post-traumatic stress disorder) 05/31/2022 Tobacco dependence 09/19/2020 Gender dysphoria 04/16/2020 TBI (traumatic brain injury) 04/11/2020 Overview (04/11/2020): x3 Attention deficit hyperactiv ity disorder (ADHD), combined type, moderate 02/04/2020 Anxiety disorder 02/04/2020 Moderate episode of recurrent major depressive d isorder 02/04/2020 Episodic mood disorder 09/04/2018 Encounters Date Type Department Care Team Description 04/20/[address] [address] Mika Santos MD Refill (B-D SYRINGE SLIP TIP 1CC 1 ML [Pharmacy Med Name: BD TUBERCULIN 1 ML SYRINGE]) 02/08/[address] [address] Mika Santos MD Medicare Annual Wellness 02/08/[address] [address] [place], [place] X ERRONEOUS ENTRY 02/08/[address] [address] Mika Santos MD ERRONEOUS ENTRY 02/08/2025 Office Visit [address] [address] Mika Santos MD Encounters for administrative purposes (Primary Dx) from Last 3 Months Immunizations Immunization Administration Dates Next Due 4vHPV (Gardasil) 07/17/2013 9vHPV (Gardasil 9) 09/08/2019,07/17/2013 DTaP 06/15/2005, 5,08/28/2001,08/28,2000,2000,2000 ,2000,2000,2000 Flu Vac (3+ yrs) 06/03/2010,06/25/2009, 8 HepA Ped/Adol (1-18 yrs) 11/14/2011,07/07/2010 HepA, Unspecified Formulation 11/14/2011, 010 HepB Ped/Adol (0-18 yrs) 08/28/2001,2000,1 09/29/1999 HepB, Unspecified Formulation 08/28/2001, 001,2000 Hib (ActHIB) 08/28/2001,2000,2000 Hib/HBV 08/28/2001,2000,2000 IPV (Polio) 06/15/2005, 5,03/26/2001,03/26,2000,2000,2000 ,2000 Influenza IIV4 (Quadrivalent ) 0.5mL (48971) 07/20/2022,09/03/2020,09/04/2018(Defer red: Patient Refused),07/01/2018,07/01/2018, 017,05/30/2017,06/30/2016,06/30/2016,1 09/16/2012,07/17/2013,06/03/2010,2008,06/16/2008 Influenza, Unspecified Formulation 06/30,06/03/2010,06/25/2009,06/16 MCV4 (Menactra) 05/30/2017,05/30/2017,11/14/2011 MMR 06/15/2005, 5,05/28/2001,05/28 Meningococcal MCV4, Unspecif ied Formulation 11/14/2011 PCV20 ([id number]) 07/20/2022 PPSV23 (Pneumovax) 09/03/2020 Pfizer Bivalent 12+ 07/20/2022 Pfizer Monovalent 12+ Purple Top 01/12/2021,11/25 Pneumococcal 7, PED 08/28/2001, 2,2000,11/25,2000,2000,2000 ,2000 Tdap [...] AM CDT Legal Sex Female 5:23 PM COIN COUNTER AND WRAPPER Gender Identity Male 04/11/2020 10:11 AM CDT Sexual Orientation Straight 04/11/2020 10 :11 AM CDT Last Filed Vital Signs Vital Sign Reading Time Taken Comments Blood Pressure 112/72 08/08/2023 9:43 AM COIN COUNTER AND WRAPPER Pulse 70 08/08/2023 9:43 AM COIN COUNTER AND WRAPPER Temperature 36.6 C (97.8 F) 08/08/2023 9:43 AM COIN COUNTER AND WRAPPER Respiratory Rate 16 06/15/2021 11:32 AM CDT Oxygen Saturation 91% 06/15/2021 12:00 PM CDT Inhaled Oxygen Concentration - - Weight 84.8 kg (187 lb) 08/08/2023 9:43 AM COIN COUNTER AND WRAPPER Height 167 cm (5' 5.75) 08/28/2022 9:06 AM COIN COUNTER AND WRAPPER Body Mass Index 30.41 08/28/2022 9:06 AM COIN COUNTER AND WRAPPER Plan of Treatment Health Maintenance Due Date Last Done Comments Cervical Cancer Screening Due 2000 Hep C Screening (Preventive Services) 2000 Medicare Annual Wellness Visit 2000 Asthma ACT (score of 20 or higher) 2004 HIV Screening (Preventive Services) 2016 Asthma AMP 19-50 yo 2019 Chlamydia 08/30/2023 08/30/2022, 12/2022, 07/01/2018 COVID-19 Vaccine ( season) 2025 07/20/2022, 01/12/2021, 12/22/2020 Influenza Vaccine (#1) 2025 [...] complete this topic Insurance * Guarantor: Luli Alvarado Account Type Relation to Patient Date of Phone Billing Address Personal/Family Self [address] [place] [address] [facility] MEDICARE [facility] * Guarantor: Luli Alvaardo Account Type Relation to Patient Date of Phone Billing Address Personal/Family Self [address] [place] [address] [facility] MEDICARE [facility] Advance Directives * Full Code (Latest Code Status on File) Date Activated Date Inactivated Comments 06/15/2021 11:11 AM 06/15/2021 3:25 PM * Full Code Date Activated Date Inactivated Comments 09/03/2018 11:50 PM 09/05/2018 6:26 PM Care Teams Teacher Asst Relationship Specialty Start Date End Date Shanthi Delgadillo MD [address] [place] [address] PCP - General Obstetrics Gynecology 02/12/25
--- OUTSIDE RECORDS SUMMARY | 2025-05-05 23:56 | XMS_ITS | Encounter Summary ---
Author Organization [facility] Address [address] [address] Care Team Providers Care Carroting Machine Offbearer Name Role Phone Shanthi Delgadillo MD Primary Care Provider [phone] Reason for Visit * Reason Comments Refill B-D SYRINGE SLIP TIP 1CC 1 ML [Pharmacy Med Name: BD TUBERCULIN 1 ML SYRINGE] Encounter Details Date Type Department Care Team (Late st Contact Info) Description 04/20/2025 Refill [facility] [address] [place] [address] Marlon Santos MD [address] [place] [address] Refill (B-D SYRINGE SLIP TIP 1CC 1 ML [Pharmacy Med Name: BD TUBERCULIN 1 ML SYRINGE]) Social History Tobacco Use Types Packs/Day Years [...] AM CDT Legal Sex Female 5:23 PM DYE WINCH OPERATOR Gender Identity Male 04/11/2020 10:11 AM CDT Sexual Orientation Straight 04/11/2020 10 :11 AM CDT documented as of this encounter Nursing Notes * Suzette Nunez RN - 04/21/2025 2:59 PM CDT Refilled per standing order. * DeweylaurieRaven Xrwcomm - 04/20/2025 2:24 PM CDT B-D SYRINGE SLIP TIP 1CC 1 ML [Pharmacy Med Name: BD TUBERCULIN 1 ML SYRINGE] Medication started: 05/18/2020 Last ordered by MARLON SANTOS: 01/15/2025 (95 days ago) QTY: 25, Refills: 11, Sig: to use with weekly testosterone injections. (unchanged) -> The medication cannot be recognized so the correct monitoring guidelines cannot be found. Last qualifying visit: 02/08/2025 (with MARLON SANTOS) Next scheduled visit: [facility] Embedded Refills, Reference: [id number], 04/20/2025 2:24:19 PM CDT, Pool: Refill Centralized Services - Primary Care ([id number]) documented in this encounter Plan of Treatment Not on file documented as of this encounter Visit Diagnoses Diagnosis Gender dysphoria documented in this encounter Care Teams Carroting Machine Offbearer Relationship Specialty Start Date End Date Shanthi Delgadillo MD [address] [place] [address] PCP - General Obstetrics Gynecology 02/12/25 documented as of this encounter
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
[2025-05-06 00:07] LABS: Hematocrit* 47.4 % (33.0-51.0); Hemoglobin* 16.6 gm/dL (12.0-16.0); Immature Granulocytes Abs Auto 0.04 K/uL (0.00-0.30); Immature Granulocytes Pct Auto 0.5 %; Lymphocytes Absolute Auto 3.03 K/uL (0.90-2.90); Mean Corpuscular HGB Conc 35 gm/dL (32-36); Mean Corpuscular Hemoglobin 30 pg (26-34); Mean Corpuscular Volume 85 fL (80-100); RDW Coefficient of Variation % 12.4 % (11.5-15.5); Red Blood Count* 5.60 m/uL (4.00-5.20); White Blood Count* 8.48 K/uL (4.50-11.00)
[2025-05-06 00:09] LABS: Lactate* 2.3 mmol/L (0.5-1.9)
[2025-05-06 00:16] LABS: Slide Review Reflex No
[2025-05-06 00:22] LABS: Mono Screen* Negative (Negative)
[2025-05-06 00:29] LABS: Albumin* 4.3 g/dL (3.3-5.0); Chloride* 104 mmol/L (96-114); Potassium* 3.3 mmol/L (3.6-5.1); Sodium* 139 mmol/L (135-149)
[2025-05-06 00:32] LABS: Alanine Aminotransferase* 28 U/L (4-35); Alkaline Phosphatase* 75 U/L (40-150); Anion Gap 10 mEq/L (7-15); Aspartate Amino Transferase* 36 U/L (12-35); Bilirubin Direct* 0.2 mg/dL (0.0-0.5); Bilirubin Total* 0.9 mg/dL (0.1-1.5); Blood Urea Nitrogen* 8 mg/dL (5-24); Calcium* 9.1 mg/dL (8.4-10.6); Carbon Dioxide* 25 mmol/L (20-32); Creatinine* 1.0 mg/dL (0.5-1.5); Est. Creatinine Clearance* 81.21; Estimated Glomerular Filt Rate 81 ml/min; Glucose* 98 mg/dL (60-115); Total Protein* 7.4 g/dL (6.0-8.3)
[2025-05-06 00:50] LABS: D Dimer Quantitative* 0.22 ug/ml (0.00-0.50)
[2025-05-06 00:56] LABS: Erythrocyte SedimentationRate* < 2 mm/hr (2-20)
[2025-05-06 02:00] VITALS: BP 97/52; PULSE 66; RESP 18
== END 2025-05-06 02:03 | disposition home or self-care (01) ==
PROVIDERS: Family Medicine; Emergency Provider Family Medicine; PCP Family Medicine
DX: B34.9 Viral infection, unspecified (principal); E86.0 Dehydration; R07.9 Chest pain, unspecified
CPT/HCPCS: 36415; 71046; 80048; 80076; 83605; 84484; 85025; 85379; 85651; 86140; 86308; 99284; J7030

== ENCOUNTER 2025-06-18 00:06 | Emergency (ER) | payer MEDICARE, MEDICAID, SELFPAY ==
--- OUTSIDE RECORDS SUMMARY | 2025-05-16 01:25 | XMS_ITS | Encounter Summary ---
Author Organization [facility] Address [address] [place] [address] Care Team Providers Care Route Delivery Service Driver Name Role Phone Elsewhere, Pcp Primary Care Provider Unavailabl e Reason for Visit * Reason Comments Fall Knee Injury Patient came in via EMS after falling when lifting girlfriend. Patient states he fell with girlfriend when he lifted her and he fell on right knee and patient felt a pop in his thigh right above his knee. Encounter Details Date Type Department Care Team (Late st Contact Info) Description 05/16/2025 1:25 AM CDT - 05/16/2025 7:23 AM CDT Emergency [facility] [address] [place] [phone] Leobardo Jane M.D. [address] [place] [address] Fracture Femur Epiphysis Displaced Closed Initial Right (HCC) (Primary Dx) Discharge Disposition: Acute Care Hospital Social History Tobacco Use Types Packs/Day Years Used Date Smoking Tobacco: Every Day Cigarettes Smokeless Tobacco: Current Tobacco Cessation:Ready to Q uit: Not Asked; Counseling Given: Not Answered Humiliation, Afraid, Rape, and Kick questionnair e Answer Date Recorded Within the last year, have y ou been afraid of your partner or ex-partner? No 05/16/2025 Within the last year, have y ou been humiliated or emotionally abused in other ways by your partner or ex-partner? No Within the last year, have y ou been kicked, hit, slapped, or otherwise physically hurt by your partner or ex-partner? No 05/16/2025 Within the last year, have y ou been raped or forced to have any kind of sexual activity by your partner or ex-partner? No 05/16/2025 Hunger Vital Sign Answer Date Recorded Within the past 12 months, y ou worried that your food would run out before you got the money to buy more. Never true 05/16/20 25 Within the past 12 months, t he food you bought just didn't last and you didn't have money to get more. Never true 05/16/2025 PRAPARE - Transportation Answer Date Re corded In the past 12 months, has l ack of transportation kept you from medical appointments or from getting medications? No 04/27 In the past 12 months, has l ack of transportation kept you from meetings, work, or from getting things needed for daily living? No 05/16/2025 [facility] Utilities Answer Date Recorded In the past 12 months has [employer], gas, oil, or water company threatened to shut off services in your home? No 05/16/2025 Housing Stability Answer Date Recorded What is your living situation today? I have a [facility] place to live 05/16/2025 Comments No Sex and Gender Information Value Date Recorded Sex Assigned at Female 05/16/2025 2:33 AM CDT Legal Sex Female 10:03 PM CIRCUIT R[facility]ER Gender Identity Transgender Male 05/16/2025 2:33 AM CDT Sexual Orientation Not on file documented as of this encounter Last Filed Vital Signs Vital Sign Reading Time Taken Comments Blood Pressure 128/87 05/16/2025 7:00 AM CDT Pulse 98 05/16/2025 7:15 AM CDT Temperature 36.2 C (97.2 F) 05/16/2025 1:30 AM CDT Respiratory Rate 17 05/16/2025 7:15 AM CDT Oxygen Saturation 98% 05/16/2025 7:15 AM CDT Inhaled Oxygen Concentration - - Weight 90.3 kg (199 lb 1.2 oz) 05/16/2025 1:39 A M CDT Height - - Body Mass Index - - documented in this encounter Medications at Time of Discharge acetaminophen (TylenoL) 500 mg tablet Take 2 tablets (1,000 mg total) by mouth every 6 (six) hours for 30 days. 240 tablet 05/17/2025 albuterol 90 mcg/actuation inhaler Inhale 2 puffs 4 (four) times a day as needed. 09/11/2021 amphetamine-dex troamphetamine (AdderalL XR) 10 mg 24 hr capsule Take 10 mg by mouth every morning. 08/16/2024 amphetamine-dex troamphetamine (AdderalL XR) 5 mg 24 hr capsule Take 5 mg by mouth every evening. 04/30/2025 ARIPiprazole (Abilify) 20 mg tablet Take 20 mg by mouth daily. 09/01/2020 budesonide-form oteroL (Symbicort) 160-4.5 mcg/actuation inhaler Inhale 2 puffs 2 (two) times a day as needed. 08/06/2023 enoxaparin (Lovenox) 40 mg/0.4 mL injection Inject 0.4 mL (40 mg total) under the skin daily for 35 days. 14 mL 05/18/2025 06/22/20 fluticasone propionate (Flonase) 50 mcg/actuation nasal spray Administer 1 spray into each nostril daily. 08/01/2022 hydrOXYzine (Atarax) 25 mg tablet Take 50 mg by mouth at bedtime as needed (sleep). 04/30/2025 ipratropium-alb uteroL (Combivent Respimat) 20-100 mcg/actuation inhaler Inhale 1 puff 3 (three) times a day. 07/21/2023 ipratropium-alb uteroL (DuoNeb) 0.5-2.5 mg/3 mL nebulizer solution Inhale 3 mL every 4 (four) hours as needed. 12/19/2023 montelukast (Singulair) 10 mg tablet Take 10 mg by mouth at bedtime. 06/02/2022 sennosides-docu sate sodium (Senokot-S) 8.6-50 mg per tablet Take 1 tablet by mouth at bedtime as needed for constipation. 30 tablet 05/17/2025 sertraline (Zoloft) 100 mg tablet Take 150 mg by mouth daily. 01/28/2020 testosterone cypionate (Depo-Testoster one) 200 mg/mL injection Inject 70 mg intramuscularly over 168 hr. 12/12/2023 acetaminophen (TylenoL) 500 mg tablet Take 2 tablets (1,000 mg total) by mouth every 6 (six) hours for 30 days. 240 tablet 05/17/2025 05/17/20 25 enoxaparin (Lovenox) 40 mg/0.4 mL injection Inject 0.4 mL (40 mg total) under the skin daily for 35 days. 14 mL 05/18/2025 05/17/20 25 meloxicam (Mobic) 15 mg tablet Take 1 tablet (15 mg total) by mouth daily for 30 days. 30 tablet 05/17/2025 05/17/20 25 meloxicam (Mobic) 15 mg tablet Take 1 tablet (15 mg total) by mouth daily for 30 days. 30 tablet 05/17/2025 06/11/20 25 oxyCODONE (Roxicodone) 5 mg immediate release tabletIndicatio ns:Prolonged Acute Pain/Traumatic Injury Take 1 tablet (5 mg total) by mouth every 4 (four) hours as needed for pain Indication: Prolonged Acute Pain/Traumatic Injury. Take 1 tab for pain 4-6, 2 tab for pain 7-10 every 4 hours as needed. 30 tablet 05/17/2025 05/17/20 25 oxyCODONE (Roxicodone) 5 mg immediate release tabletIndicatio ns:Prolonged Acute Pain/Traumatic Injury Take 1 tablet (5 mg total) by mouth every 4 (four) hours as needed for pain Indication: Prolonged Acute Pain/Traumatic Injury. Take 1 tab for pain 4-6, 2 tab for pain 7-10 every 4 hours as needed. 30 tablet 05/17/2025 06/11/20 25 sennosides-docu sate sodium (Senokot-S) 8.6-50 mg per tablet Take 1 tablet by mouth at bedtime as needed for constipation. 30 tablet 05/17/2025 05/17/20 25 sertraline (Zoloft) 50 mg tablet Take 50 mg by mouth daily. 05/17/20 25 traZODone (DesyreL) 150 mg tablet Take 150 mg by mouth at bedtime. 01/14/2018 05/17/20 25 documented as of this encounter Procedure Notes * Leobardo Jane M.D. - 05/16/2025 2:08 AM CDTAssociated Order(s): Splint Application Procedure Splint Application Performed by: Leobardo Jane M.D. Authorized by: Leobardo Jane M.D. Care team members present 1. Leobardo Jane M.D. 3. Steffen Stevens R.N. PROCEDURE DETAILS Immobilization: splint Supplies used: Traction splint. CONSENT Consent obtained: verbal Consent given by: patient The benefits, risks and alternatives to the procedure and the potential need for sedation or anesthesia as well as the names, roles, and responsibilities of healthcare team members performing significant interventional tasks were discussed with the patient and/or decision maker. UNIVERSAL PROTOCOL All relevant documentation and testing were reviewed and available. All required blood products, implants, devices and or special equipment were made available as applicable. Pre-procedure verification was conducted and the correct site was marked if required. A fire risk and smoke assessment were done as applicable. The procedural time-out to verify correct patient, correct side/site, and procedure was conducted prior to performing the procedure and confirmed in a procedural pause. PRE PROCEDURE DETAILS Procedure type: application Performed by: RN Indications: traction splint. Location: Right femur. Circulation distal to injury: capillary refill < 2 sec, warm, pink and palpable pulse Movement distal to injury: normal Sensation distal to injury: unable to assess SEDATION / ANESTHESIA Anesthesia method: none POST PROCEDURE DETAILS Procedure completed successfully: yes Pain: improved Circulation distal to injury: capillary refill < 2 sec and warm Movement distal to injury: unable to assess Sensation distal to injury: unable to assess Leobardo Jane M.D. 05/16/25 0211 documented in this encounter ED Notes * Leobardo Jane M.D. - 05/16/2025 1:44 AM CDT SUBJECTIVE CHIEF COMPLAINT/REASON FOR VISIT Fall and Knee Injury (Patient came in via EMS after falling when lifting girlfriend. Patient stateshe fell with girlfriend when he lifted her and she fell on right leg then patient felt a pop. ) HISTORY OF PRESENT ILLNESS Patient is a 24-year-old who presents emergency department for evaluation of acute injury to the right femur. Patient was lifting there girlfriend when reportedly fell, described a popping sensation in the right femur, shortened and externally rotated, called EMS. EMS reports supportive care, unable to provide pain management prior to arrival emergency department in isolated injury. No other trauma or injury report with the patient, tendon 10 pain, isolated to the right femur. History provided by: Patient efficiency analyst needed/used: no REVIEW OF SYSTEMS Constitutional: Negative for fever. HENT: Negative for sore throat. Eyes: Negative for visual disturbance. Respiratory: Negative for cough. Cardiovascular: Positive for leg swelling. Gastrointestinal: Negative for vomiting. Genitourinary: Negative for dysuria. Musculoskeletal: Right leg pain Skin: Negative for rash. Neurological: Negative for headaches. Hematological: Does not bruise/bleed easily. ALLERGIES/MEDICATIONS: Reviewed in medical record. MEDICAL HISTORY Medical History[1] There are no active problems to display for this patient. SURGICAL HISTORY Surgical History[2] FAMILY HISTORY Reviewed in chart SOCIAL HISTORY Social History[3] Social History Substance and Sexual Activity Alcohol Use Not on file Social History Substance and Sexual Activity Drug Use Not on file OBJECTIVE INITIAL VITAL SIGNS Initial Vitals Temperature 05/16/25 0128 36.2 ??C Pulse Rate 05/16/25 0130 80 Heart Rate -- Resp -- Blood Pressure 05/16/25 0130 128/72 SpO2 05/16/25 0130 100 % Pain Score 05/16/25 0130 10 - Worst possible pain PHYSICAL EXAMINATION Constitutional: She appears not lethargic. No distress. HENT: Nose: No nasal discharge. Mouth/Throat: Mucous membranes are moist. Eyes: Conjunctivae are normal. Right eye exhibits no discharge. Left eye exhibits no discharge. Cardiovascular: Edema: no edema noted Pulmonary/Chest: Effort normal. Abdominal: exhibits no distension. Musculoskeletal: General: No deformity. Normal range of motion. Comments: Patient has what appears to be shortening and external rotation of the right lower leg relative to left lower leg. Difficult palpation of pulses on bilateral lower extremities, there was warmth, in his not cold or does he. No obvious signs of open fracture. Neurological: Alert and oriented to person, place, and time. Skin: No rash noted. She is not diaphoretic. No cyanosis. No jaundice. Psychiatric: She has a normal mood and affect. ED COURSE ED Course as of 05/16/252004 [place] May 16, 2025 0202 DX Femur Right 2 Views Transfer femur fracture. Traction splint applied and will plan to re-x-ray. Additional pain control. Discussed with the orthopedic surgical service out of [place] with a plan to go to the OR, requesting ED to ED transfer. Accepted by Dr. Dietz. 0202 CBC with Differential, Blood(!): Hemoglobin 17.8(!) Hematocrit 49.6(!) Erythrocytes 5.88(!) MCV 84.4 RBC Distrib Width 12.8 Platelet Count 234 Leukocytes 8.8 Neutrophils 3.96 Lymphocytes 3.46(!) Monocytes 0.92(!) Eosinophils 0.46 Basophils 0.04 Preoperative labs shows no leukocytosis, hemoglobin 17.8. 0202 Requested NPO status. 0225 DX Femur Right 2 Views Post splint x-ray still shows what appears to be a transverse fracture with minimally improved but adjacent bony fragments. 0236 DX Femur Right 2 Views IMPRESSION: Since earlier today, the patient has been placed in traction. Redemonstrated displaced transverse fracture through the mid right femur. The foreshortening of the femur has decreased although there isstill persistent 2.3 cm of shortening. The distal fragment remains medially and posteriorly displaced one shaft width. 0244 Lactate(!): Lactate 3.3(!) Suspect likely secondary to alcohol utilization, will provide IV fluids while waiting for transfer.As received 150 mcg total of fentanyl in the emergency department. 0246 Patient endorsed 4 shots of alcohol this evening, last was approximately 2 hours prior to arrival emergency department, approximately midnight this evening. 0247 Ethanol, P(!): 49 Alcohol minimally elevated at 49. Electrolytes shows minimal hypokalemia and kidney function 1.07, again receiving fluids, anion gap likely secondary to history of alcohol utilization. No evidence ofhypoglycemia. 0247 Continue to board in the emergency department awaiting EMS availability. 0253 hCG (Human Chorionic Gonadotropin), Quantitative, : HCG, Quantitative, , P <1.0 Negative 0524 Patient will remain in the emergency department, again extended delay to transport difficulties and now has been pushed back to 8 a.m. unless alternative options are found. 0557 Patient continues to struggle with the pain management, describing spasms of his leg. We will continue to provide pain control as able to do so given the delay in transfer. Consented for [place] catheter placement for difficulty with urination. Final Diagnoses: as of 05/16/252004 Fracture Femur Epiphysis Displaced Closed Initial Right (HCC) INTERVENTIONS Medications fentaNYL injection 50 mcg (Sublimaze) (50 mcg intravenous Given 05/16/25 0130) LABS Labs Reviewed CBC WITH DIFFERENTIAL, B BASIC METABOLIC PANEL, S/P PROTHROMBIN TIME (PT), P LACTATE, B/P ETHANOL, S ECG RADIOLOGY DX Femur Right 2 Views (Results Pending) ASSESSMENT / PLAN ASSESSMENT/PLAN IMPRESSION AND PLAN Luli Wharton is a 24 y.o. female presents after fall with isolated injury to the right femur. On arrival emergency department in severe pain, vitals otherwise normal. Concern for probable fracture. We did ask for portable x-ray, screening laboratory studies. X-ray does show what appears to be a spiral fracture that is displaced. Plan for screening laboratory studies, alcohol was not endorsed, additional pain control, traction splint application, orthopedic consultation with the anticipation of transfer need. We did request Orthopedics for consultation. DIAGNOSIS Final diagnoses: None ED DISCHARGE MEDS ED Prescriptions None DISPOSITION Final discharge disposition not confirmed [1] No past medical history on file. [2] No past surgical history on file. [3] Social History Socioeconomic History ??? Marital status: Single Social Drivers of Health Food Insecurity: Food Insecurity Present (12/14/2024) Received from [facility] Food Insecurity ??? Do you worry your food will run out before you are able to buy more?: 2 Transportation Needs: Unmet Transportation Needs (12/14/2024) Received from [facility] Transportation Needs ??? Does lack of transportation keep you from medical appointments?: 2 ??? Does lack of transportation keep you from work, meetings or getting things that you need?: 2 Housing Stability: Medium Risk (12/14/2024) Received from [facility] Housing Stability ??? What is your housing situation today?: 2 Leobardo Jane M.D. 05/16/252004 documented in this encounter Plan of Treatment Upcoming Encounters Date Type Department Care Team (Late st Contact Info) Description 07/05/2025 1:00 PM [facility] Appointment Department of Radiology, [facility], in [address] [phone] Andrew Hansen APRN, C.NMarie, M.S.N. [address] [place] [phone] Discharge Disposition: Home or Self Care 07/05/2025 1:30 PM CIRCUIT [facility] Office Visit Department of Orthopedic Surgery in [address] [phone] Andrew Hansen APRN, C.NAngela., M.S.N. [address] [place] [phone] documented as of this encounter Goals Goal Patient Goal Type Associated Problems Recent Progress Patient-Stated? Author Autogenerat ed Goal Care Plan Autogenerated Problem No Eyal Douglass, RAmanda documented as of this encounter Procedures Procedure Name Priority Date/Time Associated Diagnosis Comments URINALYSIS WITH MICROSCOPIC IF INDICATED, U STAT 05/16/2025 6:47 AM CDT BACTERIAL CULTURE, AEROBIC + SUSC, URINE STAT 05/16/2025 6:47 AM CDT DX FEMUR RIGHT 2 VIEWS RAD - Semiurgent (Fast; most ED patients; some inpatients) 05/16/2025 2:29 AM CDT SPLINT APPLICATION Routine 05/16/2025 2: 08 AM CDT ETHANOL, S STAT 05/16/2025 1:46 AM CDT PROTHROMBIN TIME (PT), P STAT 05/16/2025 1:46 AM CDT CBC WITH DIFFERENTIAL, B STAT 05/16/2025 1:46 AM CDT HUMAN CHORIONIC GONADOTROPIN (HCG), HERMANN, STAT 05/16/2025 1:46 AM CDT LACTATE, B/P STAT 05/16/2025 1:46 AM CDT BASIC METABOLIC PANEL, S/P STAT 05/16/2025 1:46 AM CDT DX FEMUR RIGHT 2 VIEWS RAD - Semiurgent (Fast; most ED patients; some inpatients) 05/16/2025 1:43 AM CDT documented in this encounter Results * Bacterial Culture, Aerobic + Susceptibility, Urine (05/16/2025 6:47 AM CDT) Urine Culture No growth after 1 day of incubation. 05/17/2025 11:46 AM CDT [facility] Urine (Urine, Straight Catheter) 05/16/2025 6:47 AM CDT 05/16/2025 4:27 PM CDT Comment:Specimen Source Site : Urine us Leobardo Jane M.D. LAB MICROBIOLOGY - GENER AL ORDERABLES Final Result [facility] [address] [place] [address], [facility] in [place] [address] [place] [address] * (ABNORMAL) Urinalysis with Microscopic if Indicated: Urine, Straight Catheter (05/16/2025 6:47 AM CDT) Source Urine, Urine, Straight Catheter 05/16/2025 6:52 AM CDT [facility] Clarity Clear Clear 05/16/2025 6:58 AM CDT [facility] Color Yellow 05/16/2025 6:58 AM CDT [facility] Comment: ----REFERENCE VALUE---- Colorless Yellow Suzette Blood Negative Negative 05/16/2025 6:58 AM CDT [facility] Nitrite Negative Negative 05/16/2025 6:58 AM CDT [facility] Leukocyte Esterase Negative Negative 05/16/2025 6:58 AM CDT [facility] Protein Negative mg/dL 05/16/2025 6:58 AM CDT [facility] Comment: ----REFERENCE VALUE---- Negative Trace Glucose Negative Negative mg/dL 05/16/2025 6:58 AM CDT [facility] Ketones, QI(U) Negative Negative mg/dL 05/16/2025 6:58 AM CDT [facility] Bilirubin Negative Negative 05/16/2025 6:58 AM CDT [facility] pH 8.5(A) 5.0 - 8.0 05/16/2025 6:58 AM CDT [facility] Specific [place] 1.020 1.001 - 1.035 05/16/2025 6:58 AM CDT [facility] Urobilinogen 0.2 0.2 - 1.0 mg/dL 05/16/2025 6:58 AM CDT [facility] Urine (Urine, Straight Catheter) 05/16/2025 6:47 AM CDT 05/16/2025 6:51 AM CDT Leobardo Jane M.D. LAB URINE ORDERABLES Fin al Result [facility] [address] [place] [address], [facility] NPRG [facility] [address] [place] [address] * DX Femur Right 2 Views (05/16/2025 2:29 AM CDT) Anatomical Region Laterality Modality Lower Extremity, Femur, Musc uloskeletal RST LOS, Musculoskeletal ARZ LOS, Muskuloskeletal FLA LOS Right Digit al Radiography Impressions 05/16/2025 2:32 AM CDT Since earlier today, the patient has been placed in traction. Redemonstrated displaced transverse fracture through the mid right femur. The foreshortening of the femur has decreased although there is still persistent 2.3 cm of shortening. The distal fragment remains medially and posteriorly displaced one shaft width. Narrative 05/16/2025 2:32 AM CDT EXAM: DX FEMUR RIGHT 2 VIEWS Procedure Note Ti Soares M.D. - 05/16/2025 EXAM: DX FEMUR RIGHT 2 VIEWS IMPRESSION: Since earlier today, the patient has been placed in traction.Redemonstrated displaced transverse fracture through the mid right femur.The foreshortening of the femur has decreased although there is stillpersistent 2.3 cm of shortening. The distal fragment remains medially andposteriorly displaced one shaft width. us Leobardo Jane M.D. IMG DIAGNOSTIC IMAGING P ROCEDURES Final Result * Splint Application (05/16/2025 2:08 AM CDT) Narrative Leobardo Jane M.D. - 05/16/2025 2:08 AM CDT Leobardo Jane M.D. 05/16/2025 2:11 AM Splint Application Performed by: Leobardo Jane M.D. Authorized by: Leobardo Jane M.D. Care team members present 1. Leobardo Jane M.D. 3. Steffen Stevens R.N. PROCEDURE DETAILS Immobilization: splint Supplies used: Traction splint. CONSENT Consent obtained: verbal Consent given by: patient The benefits, risks and alternatives to the procedure and the potential need for sedation or anesthesia as well as the names, roles, and responsibilities of healthcare team members performing significant interventional tasks were discussed with the patient and/or decision maker. UNIVERSAL PROTOCOL All relevant documentation and testing were reviewed and available. All required blood products, implants, devices and or special equipment were made available as applicable. Pre-procedure verification was conducted and the correct site was marked if required. A fire risk and smoke assessment were done as applicable. The procedural time-out to verify correct patient, correct side/site, and procedure was conducted prior to performing the procedure and confirmed in a procedural pause. PRE PROCEDURE DETAILS Procedure type: application Performed by: RN Indications: traction splint. Location: Right femur. Circulation distal to injury: capillary refill < 2 sec, warm, pink and palpable pulse Movement distal to injury: normal Sensation distal to injury: unable to assess SEDATION / ANESTHESIA Anesthesia method: none POST PROCEDURE DETAILS Procedure completed successfully: yes Pain: improved Circulation distal to injury: capillary refill < 2 sec and warm Movement distal to injury: unable to assess Sensation distal to injury: unable to assess us Leobardo Jane M.D. PROCEDURE/MINOR SURGICAL ORDERABLES Final Result * hCG (Human Chorionic Gonadotropin), Quantitative, (05/16/2025 1:46 AM CDT) HCG, Quantitative, , P <1.0 <5 IU/L 05/16/2025 2:51 AM CDT [facility] Blood (Blood, Venous) 05/16/2025 1:46 AM CDT 05/16/2025 2:32 AM CDT Leobardo Jane M.D. LAB BLOOD ADD-ON Final R esult Performing Organization Address City/[facility]/ZIP Co de Phone Number [facility] [address] [place] [address], [place] [address] [address] [place] [address] * (ABNORMAL) Ethanol Level, Serum (05/16/2025 1:46 AM CDT) [facility] Ethanol, P 49(H) <10 mg/dL 05/16/2025 2:4 6 AM CDT [facility] Blood (Blood, Venous) 05/16/2025 1:46 AM CDT 05/16/2025 1:50 AM CDT Leobardo Jane M.D. LAB BLOOD NON ADD-ON Fin al Result Performing Organization Address City/[facility]/ZIP Co de Phone Number [facility] [address] [place] [address], [address] [address] * (ABNORMAL) Lactate (05/16/2025 1:46 AM CDT) Lactate, P 3.3(H) 0.5 - 2.2 mmol/L 05/16/2025 2:43 AM CDT [facility] Blood (Blood, Venous) 05/16/2025 1:46 AM CDT 05/16/2025 1:50 AM CDT Leobardo Jane M.D. LAB BLOOD NON ADD-ON Fin al Result [facility] [address] [place] [address], [facility] NPRG [address] [address] * Prothrombin Time (PT) (05/16/2025 1:46 AM CDT) Prothrombin Time, P 10.5 9.4 - 12.5 sec 05/16/2025 2:27 AM CDT [facility] INR 0.9 0.9 - 1.1 05/16/2025 2:27 AM CDT [facility] Comment: ----ADDITIONAL INFORMATION---- Standard intensity warfarin therapeutic range: 2.0 to 3.0 High intensity warfarin therapeutic range: 2.5 to 3.5 Blood (Blood, Venous) 05/16/2025 1:46 AM CDT 05/16/2025 1:50 AM CDT Leobardo Jane M.D. LAB BLOOD ADD-ON Edited Result - Final Performing Organization Address City/[facility]/ZIP Co de Phone Number [facility] [address] [place] [address], [facility] [address] [address] * (ABNORMAL) Basic Metabolic Panel (05/16/2025 1:46 AM CDT) Potassium, P 3.3(L) 3.6 - 5.2 mmol/L 05/16/2025 2:47 AM CDT [facility] Sodium, P 139 135 - 145 mmol/L 05/16/2025 2:47 AM CDT [facility] Chloride, P 103 98 - 107 mmol/L 05/16/2025 2:47 AM CDT NPRG Bicarbonate, P 17(L) 22 - 29 mmol/L 05/16/2025 2:46 AM CDT NPRG Anion Gap, P 19(H) 7 - 15 05/16/2025 2:47 AM CDT NPRG BUN (Blood Urea Nitrogen), P 8 6 - 21 mg/dL 05/16/2025 2:46 AM CDT NPRG Creatinine 1.07(H) 0.59 - 1.04 mg/dL 05/16/2025 2:46 AM CDT NPRG Estimated GFR (eGFR) 74 >=60 mL/min/BSA 05/16/2025 2:46 AM CDT NPRG Comment: Estimated GFR calculated using the 2020 CKD_EPI creatinine equation. Calcium, Total, P 9.7 8.6 - 10.0 mg/dL 05/16/2025 2:46 AM CDT NPRG Glucose, P 105 70 - 140 mg/dL 05/16/2025 2:46 AM CDT NPRG Blood (Blood, Venous) 05/16/2025 1:46 AM CDT 05/16/2025 1:50 AM CDT Leobardo Jane M.D. LAB BLOOD ADD-ON Final R esult [facility] [address] [place] [address], [facility] NPRG [facility] [address] [place] [address] * (ABNORMAL) CBC with Differential, Blood (05/16/2025 1:46 AM CDT) Hemoglobin 17.8(H) 11.6 - 15.0 g/dL 05/16/2025 1:54 AM CDT NPRG Hematocrit 49.6(H) 35.5 - 44.9 % 05/16/2025 1:54 AM CDT NPRG Erythrocytes 5.88(H) 3.92 - 5.13 x10(12)/L 05/16/2025 1:54 AM CDT NPRG MCV 84.4 78.2 - 97.9 fL 05/16/2025 1:54 AM CDT NPRG RBC Distrib Width 12.8 12.2 - 16.1 % 05/16/2025 1:54 AM CDT NPRG Platelet Count 234 157 - 371 x10(9)/L 05/16/2025 1:54 AM CDT NPRG Leukocytes 8.8 3.4 - 9.6 x10(9)/L 05/16/2025 1:54 AM CDT NPRG Neutrophils 3.96 1.56 - 6.45 x10(9)/L 05/16/2025 1:54 AM CDT NPRG Lymphocytes 3.46(H) 0.95 - 3.07 x10(9)/L 05/16/2025 1:54 AM CDT NPRG Monocytes 0.92(H) 0.26 - 0.81 x10(9)/L 05/16/2025 1:54 AM CDT NPRG Eosinophils 0.46 0.03 - 0.48 x10(9)/L 05/16/2025 1:54 AM CDT NPRG Basophils 0.04 0.01 - 0.08 x10(9)/L 05/16/2025 1:54 AM CDT NPRG Blood (Blood, Venous) 05/16/2025 1:46 AM CDT 05/16/2025 1:50 AM CDT us Leobardo Jane M.D. LAB BLOOD ADD-ON Final R esult [facility] [address] [place] [address], [facility] NPRG [facility] [address] [place] [address] * DX Femur Right 2 Views (05/16/2025 1:43 AM CDT) Anatomical Region Laterality Modality Lower Extremity, Femur, Musc uloskeletal RST LOS, Musculoskeletal ARZ LOS, Muskuloskeletal FLA LOS Right Digit al Radiography Impressions 05/16/2025 1:46 AM CDT Acute transversely oriented fracture through the distal right femoral diaphysis with approximately 2.4 cm of posterior displacement and 4.9 cm of bayonet apposition of the fracture fragments. Diffuse overlying soft tissue swelling. Narrative 05/16/2025 1:46 AM CDT EXAM: DX FEMUR RIGHT 2 VIEWS Procedure Note Conn, Collado D, M.D. - 05/16/2025 EXAM: DX FEMUR RIGHT 2 VIEWS IMPRESSION: Acute transversely oriented fracture through the distal right femoraldiaphysis with approximately 2.4 cm of posterior displacement and 4.9 cmof bayonet apposition of the fracture fragments. Diffuse overlying softtissue swelling. Leobardo Jane M.D. IM[facility] P ROCEDURES Final Result documented in this encounter Visit Diagnoses Diagnosis Fracture Femur Epiphysis Displaced Closed Initial Right (HCC)- Primary documented in this encounter Administered Medications Inactive Administered Medications - up to 3 most recent administrations Medication Order MAR Action Action Date Dose Rate Site fentaNYL injection 50 mcg (Sublimaze) 50 mcg, intravenous, Every 15 min PRN, severe pain or score 7-10 of 10, Starting on 05/16/25 at 0126, For 3 doses Given 05/16/2025 2:01 AM CDT 50 mcg Given 05/16/2025 1:46 AM CDT 50 mcg Given 05/16/2025 1:30 AM CDT 50 mcg fentaNYL injection 50 mcg (Sublimaze) 50 mcg, intravenous, Once, On 05/16/25 at 0214, For 1 dose Given 05/16/2025 5:20 AM CDT 50 mcg HYDROmorphone injection 0.5 mg (Dilaudid) 0.5 mg, intravenous, Once as needed, severe pain or score 7-10 of 10, Starting on 05/16/25 at 0300, For 1 dose Given 05/16/2025 4:08 AM CDT 0.5 mg HYDROmorphone injection 1 mg (Dilaudid) 1 mg, intravenous, Every 1 hour PRN, severe pain or score 7-10 of 10, Starting on 05/16/25 at 0539, For 3 doses Given 05/16/2025 6:15 AM CDT 1 mg lidocaine HCL 2 % topical jelly 1 Application (Glydo) 1 Application, topical, Once, On 05/16/25 at 0604, For 1 dose, Apply urethral or topical for prevention and control of pain in procedures involving the male and female urethra or other indicated catheterization. Given 05/16/2025 6:17 AM CDT 1 Application metoclopramide injection 10 mg (Reglan) 10 mg, intravenous, Once as needed, nausea, vomiting, Starting on 05/16/25 at 0236, For 1 dose Given 05/16/2025 2:50 AM CDT 10 mg NaCl 0.9 % bolus 1,000 mL 1,000 mL, intravenous, at 1,000 mL/hr, Administer over 1 Hours, Once, On 05/16/25 at 0245, For 1 dose New Bag 05/16/2025 2:47 AM CDT 1,000 mL 1000 mL/hr documented in this encounter Active and Recently Administered Medications Times are shown in CDT. Scheduled Medication Order 05/14/2025 05/15/2025 05/16/2025 fentaNYL injection 50 mcg (Sublimaze) (COMPLETED) 50 mcg, intravenous, Once, On 05/16/25 at 0214, For 1 dose 0347 (Not Given - Pr ovider: Kylee Stein R.N. - Reason: See Provider Order - Comment: per provider to hold off on medication at this time, will given PRN pain medication as needed)0520 (Given - Provider: Steffen Stevens R.N. - Comment: per provider okay to give the ordered onetime dose of fentanyl now) lidocaine HCL 2 % topical jelly 1 Application (Glydo) (COMPLETED) 1 Application, topical, Once, On 05/16/25 at 0604, For 1 dose, Apply urethral or topical for prevention and control of pain in procedures involving the male and female urethra or other indicated catheterization. 0617 (Given - Provid er: Kylee Stein RAmanda) NaCl 0.9 % bolus 1,000 mL (COMPLETED) 1,000 mL, intravenous, at 1,000 mL/hr, Administer over 1 Hours, Once, On 05/16/25 at 0245, For 1 dose 0247 (New Bag - Prov ider: Kylee Stein R.N.)0348 (Stopped - Provider: Kylee Stein R.N.) PRN Medication Order 05/14/2025 05/15/2025 05/16/2025 fentaNYL injection 50 mcg (Sublimaze) (COMPLETED) 50 mcg, intravenous, Every 15 min PRN, severe pain or score 7-10 of 10, Starting on 05/16/25 at 0126, For 3 doses 0130 (Given - Provid er: Kylee Stein R.N.)0146 (Given - Provider: Kylee Stein R.N.)0201 (Given - Provider: Kylee Stein R.N.) HYDROmorphone injection 0.5 mg (Dilaudid) (COMPLETED) 0.5 mg, intravenous, Once as needed, severe pain or score 7-10 of 10, Starting on 05/16/25 at 0300, For 1 dose 0408 (Given - Provid er: Alex MurryN.) HYDROmorphone injection 1 mg (Dilaudid) 1 mg, intravenous, Every 1 hour PRN, severe pain or score 7-10 of 10, Starting on 05/16/25 at 0539, For 3 doses 0615 (Given - Provid er: Alex MurryN.) metoclopramide injection 10 mg (Reglan) (COMPLETED) 10 mg, intravenous, Once as needed, nausea, vomiting, Starting on 05/16/25 at 0236, For 1 dose 0250 (Given - Provid er: Kylee Stein R.N.) documented in this encounter Additional Health Concerns Active Problems Noted Date Diagnosed Date Autogenerated Problem 05/16/2025 documented as of this encounter Care Teams Route Delivery Service Driver Relationship Specialty Start Date End Date Elsewhere, Pcp PCP - General Internal Medicine 05/16/25 documented as of this encounter
--- OUTSIDE RECORDS SUMMARY | 2025-05-16 08:16 | XMS_ITS | Encounter Summary ---
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 [address] [place] [phone] Phone: tel: fax: [facility] Referral ID Status Reason Start Date Expiration Date Visits Re quested Visits Authorized [id number] Closed 05/16/2025 08/16/2026 1 1 * Outpatient (Routine) - Closed Specialty Diagnoses / Procedures Referred By Contac t Referred To Contact Orthopedic Surgery Nithin Hinds P.A.-C., M.S. [address] [place] [phone] Phone: tel: fax: Andrew Hansen APRN, C.N.P., M.S.N. [address] [place] [phone] Phone: tel: fax: Referral ID Status Reason Start Date Expiration Date Visits Re quested Visits Authorized [id number] Closed 05/16/2025 11/15/2026 1 1 Reason for Visit * Reason Comments Fall Patient Ed to ED tra nsfer from [facility] OUTSIDE DELIVER[facility]. Right femur fx, presented in traction Encounter Details Date Type Department Care Team (Latest Contact Info) Description 05/16/2025 8:16 AM CDT - 05/17/2025 2:16 PM CDT Hospital Encounter [facility], Fifth Floor [address] [place] [address] Bma Kapoor M.D. [address] [place] [address] Melchor Marcelo D.O. [address] [place] [address] Fracture Lower End Femur Other Closed Initial Right (HCC) (Primary Dx); Fracture Femur Shaft Oblique Displaced Closed Initial Right (HCC) Discharge Disposition: Home or Self Care Social History Tobacco Use Types Packs/Day Years [...] things needed for daily living? No 05/16/2025 [facility] Utilities Answer Date Recorded In the past 12 months has [employer] electric, gas, oil, or water [employer] threatened to shut off services in your home? No 05/16/2025 Housing Stability Answer Date Recorded What is your living situation today? 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 Gender Identity Transgender Male 05/16/2025 2:33 AM CDT Sexual Orientation Not on file documented as of this encounter Last Filed Vital Signs Vital Sign Reading Time Taken Comments Blood Pressure 107/86 05/17/2025 12:40 PM CDT Pulse 82 05/17/2025 12:40 PM CDT Temperature 36 C (96.8 F) 05/17/2025 12:40 PM CDT Respiratory Rate 15 05/16/2025 3:15 PM CDT Oxygen Saturation 98% 05/17/2025 12:40 PM CDT Inhaled Oxygen Concentration - - Weight 82.8 kg (182 lb 8.7 oz) 05/16/2025 8:36 A M CDT Height 167.6 cm (5' 5.98) 05/16/2025 3:15 PM CD T Body Mass Index 29.48 05/16/2025 8:36 AM CDT documented in this encounter Discharge Summaries * Nithin Hinds, P.A.-C., M.S. - 05/17/2025 2:16 PM CDT DISCHARGE SUMMARY BRIEF OVERVIEW Hospital: [facility] Discharge Provider: Melchor Marcelo D.O. Primary Care Providers: Elsewhere, Pcp (General) No address on file Primary Care Provider Phone Number: None Primary Care Provider Fax Number: None Admission Date: 05/16/2025 Discharge Date: 05/17/2025 PRINCIPAL DIAGNOSIS Fracture Lower End Femur Other Closed Initial Right (HCC) SECONDARY DIAGNOSES Principal Problem: Fracture Lower End Femur Other Closed Initial Right (HCC) Active Problems: Fracture Femur Shaft Oblique Displaced Closed Initial Right (HCC) Resolved Problems: * No resolved hospital problems. * Surgery Information This Encounter Past Procedures (06/02/2024 to Today) Date Procedures Providers Loc / Dept 05/16/2025 SURGICAL MANAGEMENT SHAFT FRACTURE FEMUR Melchor Marcelo D.O.Torkelson, Jared L, P.A.-C., M.S. [facility] OR DISCHARGE DISPOSITION Home or Self Care [1] OUTPATIENT FOLLOW UP Scheduled Appointments 07/01/2025 9:40 AM [facility] Radiology 07/01/2025 10:30 AM Andrew Hansen APRN C.N.P., M.S.N. Orthopedic Surgery For appointment details refer to your Patient Appointment Guide. TEST RESULTS PENDING AT DISCHARGE Pending Labs None DETAILS OF HOSPITAL STAY REASON FOR ADMISSION Fracture Lower End Femur Other Closed Initial Right (HCC) Fracture Femur Shaft Oblique Displaced Closed Initial Right (HCC) HOSPITAL COURSE The patient was admitted and underwent the above stated procedure . The procedure was tolerated without any difficulty. Please see Dr. Vasquez's operative note for full details of the procedure. Antibiotics were given in the perioperative period. Following surgery, pain was controlled with intravenous medications and these were weaned to oral medications as the patient tolerated. Physical therapy was consulted for assistance with mobilization. The patient was maintained on appropriate DVT/PE prophylaxis. The remainder of the hospital course was uncomplicated. At the time of dismissal, vitalssigns were stable, a general diet was tolerated, pain was controlled with oral agents and all discha rge criteria were met. DVT prophylaxis: enoxaparin 35 days Dressing: soft dressings, Aquacel Follow up: 2 weeks CONSULTS ORDERED DURING THIS ADMISSION IP CONSULT TO CARE MANAGEMENT CONDITION AT DISCHARGE good Discharge instructions were provided to the patient and caregiver(s). Total time spent in discharge services today: 29 minutes. documented in this encounter Medications at Time [...] (two) times a day as needed. 08/06/2023 busPIRone (BuSpar) 15 mg tablet Take 15 mg by mouth 2 (two) times a day. enoxaparin (Lovenox) 40 mg/0.4 mL injection Inject [...] 70 mg intramuscularly over 168 hr. 12/12/2023 meloxicam (Mobic) 15 mg tablet Take 1 tablet (15 mg total) by mouth daily for 30 days. 30 tablet 05/17/2025 06/11/20 oxyCODONE (Roxicodone) 5 mg immediate release tabletIndicatio ns:Prolonged Acute Pain/Traumatic Injury Take 1 tablet (5 mg total) by mouth every 4 (four) hours as needed for pain Indication: Prolonged Acute Pain/Traumatic Injury. Take 1 tab for pain 4-6, 2 tab for pain 7-10 every 4 hours as needed. 30 tablet 05/17/2025 06/11/20 documented as of this encounter Progress Notes * Gisela Brooks O.T., O.TKeyla - 05/17/2025 11:17 AM CDT 05/17/25 1117 Reason Therapy Missed Reason Therapy Missed No visit this date (OT Screen) Per PT pt is doing well and has no acute skilled OT needs at this time. OT will plan to sign off atthis time. Please reconsult should change in status occur or concerns arise. Thank you. * Nithin Hinds P.A.-Jackie., M.S. - 05/17/2025 8:52 AM CDT Orthopedic Service: [facility] Hospital Admission Day: 05/16/2025 Hospital Day: 1 SUBJECTIVE Patient is seen in their room this AM. Events overnight: none. Pain was controlled overnight. Has not mobilized since surgery. New complaints: none OBJECTIVE VITAL SIGNS Temperature: [35.7 ??C-36.5 ??C] 35.8 ??C Heart Rate: [69-123] 93 Resp Rate: [8-24] 15 Blood Pressure: (103-151)/(71-96) 106/78 SpO2: [93 %-99 %] 96 % Flow Rate (L/min): [0 L/min-10 L/min] 0 L/min Height: [167.6 cm] 167.6 cm BMI (Calculated): [29.5 kg/m??] 29.5 kg/m?? Pulse Rate: [59-124] 76 I/O last 3 completed shifts: In: 3717.5 [P.O.:650] Out: 690 [Urine:350; Emesis or Enteric Tube:300; Blood:40] PHYSICAL EXAMINATION General: Alert, oriented, no acute distress Lungs: non labored breathing Skin: Post operative dressing in place. Clean, dry, and intact with scant serosanguineous drainage present. LE: Foot WWP. DP pulse 2+. SILT in sp/dp/tibial/sural/saphenous nerve distributions. Fires GS/TA/EHL/FHL. No calf edema. DIAGNOSTICS LABORATORY STUDIES (past 24 hours) Recent Results (from the past 24 hours) Basic Metabolic Panel Collection Time: 05/17/25 6:48 AM Result Value Potassium, P 3.7 Sodium, P 138 Chloride, P 104 Bicarbonate, P 24 Anion Gap, P 10 BUN (Blood Urea Nitrogen), P 7 Creatinine 0.83 Estimated GFR (eGFR) >90 Calcium, Total, P 8.3 (L) Glucose, P 108 CBC without Differential Collection Time: 05/17/25 6:48 AM Result Value Hemoglobin 14.0 Hematocrit 40.2 Erythrocytes 4.64 MCV 86.6 RBC Distrib Width 13.0 Platelet Count 215 Leukocytes 14.0 (H) IMAGING STUDIES (past 24 hours) No results found. ASSESSMENT / PLAN Status post IMN right femoral shaft fracture with Dr. Marcelo's team on 05/16/25. #1 Fracture Femur Shaft Oblique Displaced Closed Initial Right (HCC) #2 Fracture Lower End Femur Other Closed Initial Right (HCC) Problem List[1] As per the patients active problem list above, will restart home meds as indicated and continue to monitor, intervening with changes in treatment and/or medications when appropriate. PLAN: Will work with PT today. Pain comfortable at this time. Slightly elevated WBC, likely reactive. Vitals stable. Once clears working with PT he can return home. Will follow up in outpatient clinic in 2weeks with repeat imaging. Activity: as tolerated; Antibiotics: perioperative antibiotics completed Brace: none Consults: PT Cultures/Path: none Diet: general diet ; Drains: none Dressing: aquacel DVT Prophylaxis: enoxaparin 35 days GI Prophylaxis: Pantoprazole Pain: pain well-controlled on oral pain meds Urinary: no urinary catheter Anticipated Disposition: Home later today Please contact the service of Dr. Marcelo with any questions or concerns regarding the management of this patient. [1] Patient Active Problem List Diagnosis Fracture Femur Shaft Oblique Displaced Closed Initial Right (HCC) Fracture Lower End Femur Other Closed Initial Right (HCC) Cannabis Use Unspecified Uncomplicated Asthma Exacerbation (HCC) Attention Deficit Disorder Combined Type Depression Major Recurrent Moderate (HCC) Gastroenteritis Gender Incongruence Adolescent Or Adult Anxiety Disorder Unspecified Disruptive Mood Dysregulation Disorder (HCC) Posttraumatic Stress Disorder Brief Post Concussion Syndrome Seizure (HCC) Tobacco Use * Aide Moreno Pharm.D., R.Ph. - 05/17/2025 7:55 AM CDT Images from the original note were not included. Admission Medication History Note Adherence issues: No concerns Medication list source: Patient and Pharmacy or dispense records Medication related information: N/A Prior to Admission Medications Med List Status: Pharmacy Complete Set By: Aide Moreno PharmArikDArik, R.Ph. at 05/17/2025 7:55 AM Taking? Last Dose Informant Start Date End Date LT albuterol 90 mcg/actuation inhaler 05/15/2025 -- 09/11/21 -- Inhale 2 puffs 4 (four) times a day as needed. amphetamine-dextroamphetamine (AdderalL XR) 10 mg 24 hr capsule 05/15/2025 at Morning -- 08/16/24 -- Take 10 mg by mouth every morning. amphetamine-dextroamphetamine (AdderalL XR) 5 mg 24 hr capsule 05/15/2025 at Evening -- 04/30/25 -- Take 5 mg by mouth every evening. ARIPiprazole (Abilify) 20 mg tablet 05/15/2025 at Morning -- 09/01/20 -- Take 20 mg by mouth daily. budesonide-formoteroL (Symbicort) 160-4.5 mcg/actuation inhaler -- -- 08/06/23 -- Inhale 2 puffs 2 (two) times a day as needed. busPIRone (BuSpar) 15 mg tablet 05/15/2025 at Bedtime -- -- -- Take 15 mg by mouth 2 (two) times a day. fluticasone propionate (Flonase) 50 mcg/actuation nasal spray 05/15/2025 -- 08/01/22 -- Administer 1 spray into each nostril daily. hydrOXYzine (Atarax) 25 mg tablet -- -- 04/30/25 -- Take 50 mg by mouth at bedtime as needed (sleep). ipratropium-albuteroL (Combivent Respimat) 20-100 mcg/actuation inhaler 05/15/2025 at Evening -- 07/21/23 -- Inhale 1 puff 3 (three) times a day. ipratropium-albuteroL (DuoNeb) 0.5-2.5 mg/3 mL nebulizer solution at Bedtime -- 12/19/23 -- Inhale 3 mL every 4 (four) hours as needed. montelukast (Singulair) 10 mg tablet 05/15/2025 at Bedtime -- 06/02/22 -- Take 10 mg by mouth at bedtime. sertraline (Zoloft) 100 mg tablet 05/15/2025 at Morning -- 01/28/20 -- Take 150 mg by mouth daily. testosterone cypionate (Depo-Testosterone) 200 mg/mL injection 05/14/2025 -- 12/12/23 -- Inject 70 mg intramuscularly over 168 hr. Electronically signed by: Amairani Moreno, PharmJosette., R.Ph. 05/17/25 7:55 AM CDT documented in this encounter Consult Notes * Renetta Busby P.T., D.P.T. - 05/17/2025 10:12 AM CDT Inpatient Physical Therapy Evaluation Patient: Luli Wharton Room: [facility] Referring/Attending Provider: Melchor Marcelo D.O. Medical Diagnosis: Fracture Lower End Femur Other Closed Initial Right (HCC) [S72.491A] Fracture Femur Shaft Oblique Displaced Closed Initial Right (HCC) [S72.331A] Payor: MEDICARE / Plan: MEDICARE A AND B / Product Type: Medicare / Reason for PT Referral: Eval & Treat, Discharge Planning Onset Date: 05/16/2025 Patient/Caregiver Goals: Decrease pain, Return to home, and Return to prior level of function Past Medical / Surgical History: Problem List[1] Medical History[2] Surgical History[3] History of Present Illness: Luli Wharton is a 24 y.o. adult who was admitted to [facility] in [place] on 05/16/2025 due to Fracture Lower End Femur Other Closed Initial Right (HCC) [S72.491A] Fracture Femur Shaft Oblique Displaced Closed Initial Right (HCC) [S72.331A] Panel Cutter needed during therapy session? : No. SUBJECTIVE Subjective Comments: Patient is agreeable to therapy session. Activity Orders: Nursing Activity Orders (From admission, onward) Start Ordered 05/16/25 1505 Activity/Position: Up Ad Erin Until discontinued Question Answer Comment Activity Level: Up Ad Erin Restrictions/Precautions: None Brace/Device: None 05/16/25 1504 Is patient at risk for falls? yes History of falls? No Precautions/Restrictions: Fall Precautions Weight Bearing Status: Weight bearing as tolerated right lower extremity Bed Alarm/[place]: No bed alarm or dallas required Invasive Lines/Drains: Intravenous line Oxygen Delivery: Room air Prior Level of Function: Independent with all ADLs and all IADLs Receives assist for no ADLs and no IADLs Receives help from: none At baseline, patient ambulates without an assistive device Lives with: friend(s) Occupational Role: unemployed Home Set Up: Type of home: Mobile Home Home layout: One level Home access: 3 stair(s) to enter with rails Bathroom set up: walk in shower, shower chair, and standard height toilet Available Equipment: none OBJECTIVE Patient Presents: supine in bed Pain Assessment: Pain: 4-5/10 Location: right leg Current Level of Function: Cognition: Alert Screen: ROM: R LE impaired Strength: R LE impaired Balance: Static Sitting: Good (maintains balance without support) Dynamic Sitting: Good (maintains balance without support) Static Standing: Fair (maintains balance with handheld assist) Dynamic Standing: Fair (maintains balance with handheld assist) Bed Mobility: Supine to Sit: Modified Independent Devices used: Bed rail Cueing: verbal cues Transfers: Sit to stand: Modified independent Devices used: Front wheeled walker and axillary crutches Cueing: verbal cues Gait Assessment: Gait Training: Distance: 40 meters x2 Assistance: Supervision Devices used: Front wheeled walker and crutches Quality: appropriate heel toe gait that is mildly antalgic on right; near end of ambulation due to increase pain, minimal weight placed on right and more step to pattern; then swing through pattern with crutches Cueing: verbal cues Stairs: Gait on Stairs: 3 x2 steps Assistive Device: Handrail Assistance: Supervision Cueing: Verbal, for LE placement Outcome Measures: AM-[facility] Basic Mobility [facility] AM-[facility] Basic Mobility (V.2) How much help from another person do you currently need???If the patient hasn't done an activity recently, how much help from another person do you think he/she would needif he/she tried? 1. Turning from your back to your side while in a flat bed without using bedrails?: None 2. Moving from lying on your back to sitting on the side of a flat bed without using bedrails?: None 3. Moving to and from a bed to a chair (including a wheelchair)?: None 4. Standing up from a chair using your arms (e.g., wheelchair, or bedside chair)?: None 5. To walk in hospital room?: None 6. Climbing 3-5 steps with a railing?: None AM-P[facility] Basic Mobility (V.2) Raw Score: 24 AM-[facility] Basic Mobility (V.2) Standardized Score: 57.68 Interpretation: Based on scoring guidelines using the raw score value: *Those going to home had an average score at or above 18 *Those going to facility had an average score at or below 17 Clinicians answer the AM-PAC Inpatient Short Form based on observed patient activity and/or clinical judgment (ie. patient can be scored without physically performing each activity). The AM-PAC is one of many factors to consider when discharge planning. Interventions provided 05/17/2025: Evaluation completed. A collaborative effort was used to establish goals and plan of care, which was agreed upon by patient/caregiver. Therapy findings and recommendations were discussed with patient. Treatment also consisted of: therapeutic exercise including instruction and facilitation of LE AROMexercises and handout provided: ankle pumps, quad sets, glute sets, straight leg raise, hip abduction, seated long arc quad and standing hip abd and extension. Adverse Response to Treatment: none Vitals not assessed. Patient Disposition at the End of Treatment: was left in bedside chair at end of session with call light within reach. All needs met and questions answered. Ice applied to right knee. Patient/caregiver verbalized understanding to contact nursing staff for all needs including transfers and ambulation if appropriate. Contacted Primary service, Patient's nurse, and welfare case worker regarding discharge/safety recommendations and equipment needs and recommendations Education provided this session: Education on proper use of crutches, HEP and mobility recommendations. Assessment Discharge Recommendations: From a physical therapy standpoint, upon discharge from this facility, patient would benefit from discharging without skilled physical therapy needs. Will defer to ortho at follow up session if patient will need any outpatient PT. Discharge recommendations will continue to be updated/assessed and modified as appropriate. Barriers to Discharge Home: None Equipment Recommended - PT: Crutches Clinical Impression: Mr. Wharton is a 24 y.o. adult who has been hospitalized 1 day(s) with an admitting diagnosis of: Fracture Lower End Femur Other Closed Initial Right (HCC) [S72.491A] Fracture Femur Shaft Oblique Displaced Closed Initial Right (HCC) [S72.331A] Prior to hospitalization patient was completing daily activities including ADLs, IADLs and ambulated with no AD. Lives with a friend/roommate. Currently presents with impairments including impaired range of motion, impaired strength, impaired balance, and pain affecting functional mobility resulting in functional deficits including impaired gait and impaired transfer skills. Patient was able to demonstrate transfers and ambulation with FWW and supervision. Demonstrates appropriate heel toe gait with cueing and minimally antalgic. Progressed to use of axillary crutches and education on proper use and fit. He demonstrated appropriate gait but near of session with increasing pain, demonstrated more step to pattern and then swing through pattern. Describes some knee buckling with increased pain but able to utilize crutches appropriately to remain steady. He prefers to obtain crutches for discharge. Trialed stairway navigation and patient able to ascend/descend 3 steps x2 reps with railing and supervision; verbal cues for proper LE sequencing and demonstrated appropriate step to pattern. Educated patient on simple AROM exercises for home program and handout provided. Reviewed activity recommendations and provided patient with crutches. He had no further questions or concerns about returning home. In-Hospital Activity and Mobility Recommendations: - Transfer with stand by assist and crutches to promote safe functional mobility. - Ambulate to bathroom for toileting - Eat all meals in chair There are no further acute PT needs. Luli Wharton has Good rehab potential to meet the expected outcomes in a reasonable period of time. Comorbid Conditions: Mental health disorder Personal Factors: Needs assistive device Clinical Presentation: Stable Examination elements: 1-2 Clinical Decision Making: Low complexity clinical decision making Functional Goals and Timeframes: one time visit Plan Physical Therapy Attestation Statement: Patient agrees with the plan of care and goals. Plan: Plan of care initiated PT Frequency: One-time visit PT Duration: Until goals are met or hospital discharge Treatment interventions may include: Treatment/Interventions: Gait training, Therapeutic exercise Time Spent with Patient Evaluations PT Eval - Low Complexity: 15 min Therapeutic Interventions Gait Training (min): 14 min Therapeutic Exercise (min): 10 min Time Tracking Total Timed Units (min): 24 min Total Treatment Time (min): 39 min [1] Patient Active Problem List Diagnosis Fracture Femur Shaft Oblique Displaced Closed Initial Right (HCC) Fracture Lower End Femur Other Closed Initial Right (HCC) Cannabis Use Unspecified Uncomplicated Asthma Exacerbation (HCC) Attention Deficit Disorder Combined Type Depression Major Recurrent Moderate (HCC) Gastroenteritis Gender Incongruence Adolescent Or Adult Anxiety Disorder Unspecified Disruptive Mood Dysregulation Disorder (HCC) Posttraumatic Stress Disorder Brief Post Concussion Syndrome Seizure (HCC) Tobacco Use [2] Past Medical History: Diagnosis Date Asthma NOS Brain Injury NOS Depression Posttraumatic Stress Disorder Prolonged [3] Past Surgical History: Procedure Laterality Date SURGICAL MANAGEMENT SHAFT FRACTURE FEMUR Right 05/16/2025 Procedure: SURGICAL MANAGEMENT SHAFT FRACTURE FEMUR; Surgeon: Melchor Marcelo D.O.; Location: [facility] OR * Mitra Hart L.I.C.S.W. - 05/17/2025 10:03 AM CDTAssociated Order(s): IP CONSULT TO CARE MANAGEMENT SUBJECTIVE Patient is a 24 y.o. adult who was admitted to [facility] 05/16/2025 due to Fracture Lower End Femur Other Closed Initial Right (HCC) [S72.491A] Fracture Femur Shaft Oblique Displaced Closed Initial Right (HCC) [S72.331A]. Social work was consulted for discharge planning. Completing a psychosocial assessment is not warranted at this time. OBJECTIVE Problem List[1] ASSESSMENT / PLAN ASSESSMENT Patient not assessed. INTERVENTIONS Spoke with physical therapy. Patient is cleared to return home with no skilled physical therapy needs. Completed chart review in response to discharge planning consult. Patient is planned to discharge later today per orthopedic surgery. No discharge needs identified PLAN Patient will discharge home today via private vehicle. Lalo MartinSBrittney 05/17/25 [1] Patient Active Problem List Diagnosis Fracture Femur Shaft Oblique Displaced Closed Initial Right (HCC) Fracture Lower End Femur Other Closed Initial Right (HCC) Cannabis Use Unspecified Uncomplicated Asthma Exacerbation (HCC) Attention Deficit Disorder Combined Type Depression Major Recurrent Moderate (HCC) Gastroenteritis Gender Incongruence Adolescent Or Adult Anxiety Disorder Unspecified Disruptive Mood Dysregulation Disorder (HCC) Posttraumatic Stress Disorder Brief Post Concussion Syndrome Seizure (HCC) Tobacco Use * Nithin Hinds, [place], M.S. - 05/16/2025 9:28 AM CDT REASON FOR CONSULT Right femur fracture SUBJECTIVE HISTORY OF PRESENT ILLNESS Luli Wharton is a 24 y.o. 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 Patient states they were carrying there girlfriend when he fell backwards and she fell directly onto his leg. He had immediate pain was unable to ambulate. He was originally brought by EMS to the [facility] for further evaluation. X-rays were obtained which showed a transverse midshaft femur fracture. He was placed into traction and was transferred to the [facility] for definitive intervention. No previous injury or trauma to the right leg before. Currently seeing a 01/02. Traction remains intact. Patient states they are not currently experiencing numbness, tingling, weakness to the effected limb. Denies pain to other extremities or spinal column. The following portions of the patient's history were reviewed and updated as appropriate: allergies, current medications, family history, medical history, social history, surgical history, and problem list. SOCIAL HISTORY Tobacco history is Tobacco Use History[1]. REVIEW OF SYSTEMS General ROS: negative OBJECTIVE OBJECTIVE VITAL SIGNS BP 123/90 Pulse 73 Temp 36.6 ??C (Temporal) Resp 20 Ht 167.6 cm Wt 82.8 kg SpO2 96% Unknown BMI 29.46 kg/m?? PHYSICAL EXAMINATION General Appearance: Patient appears alert, active, comfortable, and in no acute distress. The patient is alert and oriented to person, place, and time and able to follow commands. Skin/Vascular: The right lower extremity does appear well perfused. Dorsalis Pedis pulse is 2+ and capillary refill is <= 2 sec through all toes. Musculoskeletal: 5/5 dorsiflexion, plantar flexion FHL, EHL right lower extremity. Compartments are soft. Tender in the mid thigh. Ecchymosis present. Fracture appears closed. Neurologic: Intact sensation to light touch through the deep peroneal, superficial peroneal, sural, saphenous, and tibial nerve distributions of the affected leg. DIAGNOSTICS DX Chest Portable 1 View Result Date: 05/16/2025 Impression: No acute findings. DX Femur Right 2 Views Result Date: 05/16/2025 Impression: Since earlier today, the patient has been placed in traction. Redemonstrated displaced transverse fracture through the mid right femur. The foreshortening of the femur has decreased although there is still persistent 2.3 cm of shortening. The distal fragment remains medially and posteriorly displaced one shaft width. DX Femur Right 2 Views Result Date: 05/16/2025 Impression: Acute transversely oriented fracture through the distal right femoral diaphysis with approximately 2.4 cm of posterior displacement and 4.9 cm of bayonet apposition of the fracture fragments. Diffuse overlying soft tissue swelling. ASSESSMENT / PLAN IMPRESSION/ASSESSMENT/PLAN: 1. Midshaft femur fracture, right 24 y.o. adult who unfortunately sustained a midshaft femur fracture earlier today due to a fall while holding there girlfriend.. Risks and benefits of surgical and nonsurgical intervention were discussed with the patient. The benefits from undergoing procedure would be that patient would be able to be ambulating as their pain allows, decreasing risk of severe deconditioning, deep vein thrombosis, pulmonary embolism, bed sores, or pneumonia. The risks of surgery were discussed with patient and/or family today including infection, cardiopulmonary complications including stroke, heart attack, or , nerve and vessel damage, or possible need for second operation. Patient would like to proceed with surgery. Patient consented today for retrograde intramedullary nailing of the right femur fracture. Postop expectations were discussed with the patient. Patient hadall of the questions thoroughly sought and answered. Patient verbally stated understanding and agree ment with this plan. This impression/report/plan discussed with Dr. Marcelo who is in agreement. [1] Social History Tobacco Use Smoking Status Every Day Types: Cigarettes Smokeless Tobacco Not on file Cosigned by Melchor Marcelo D.O. at 05/16/2025 10:37 AM CDT Associated attestation - Melchor Marcelo D.O. - 05/16/2025 10:37 AM CDT Patient independently seen and examined. I agree with the assessment and plan below. 24-year-old individual with femoral shaft fracture. Closed injury. He remains neurovascularly intact. I discussed the risks, benefits, and alternatives to non-operative versus surgical treatment. At no time were any guarantees implied or stated. Patient expressed understanding and a preference to proceed with surgery. Informed consent was obtained. documented in this encounter Nursing Notes * Isela Quevedo R.N. - 05/17/2025 1:05 PM CDT INPATIENT NURSING DISCHARGE SUMMARY Discharge Provider: Melchor Marcelo D.O. Admission Date: 05/16/2025 Discharge Date: 05/17/2025 05/17/2025 DISCHARGE DISPOSITION Home/Self Care CONDITION AT DISCHARGE stable TREATMENTS None DEVICES/EQUIPMENT None PROFESSIONAL SKILLED SERVICES None MODE OF DISCHARGE Ambulatory TRANSPORTATION Private Vehicle ACCOMPANIED BY Nurse All belongings sent home with patient. * Madeline Sullivan R.N. - 05/17/2025 6:02 AM CDT INPATIENT SHIFT SUMMARY ORIENTATION: A&Ox3 SAFETY MEASURES: Met by Routine ASSISTED MOBILITY: Stand by assist VITALS: Vitals assessed and stable this shift INTAKE: Adequate for liquids, Inadequate for solids, but improving, and Maintenance IV fluids OUTPUT: Patient has been urinating adequately. PAIN: Pain has been well controlled with scheduled medications and PRNs PRN MEDICATIONS UTILIZED THIS SHIFT: Oxycodone, Compazine. Patient allergic to ondansetron but has order for it as PRN. DVT PROPHYLAXIS: SCDs CHG/BOWMAN CARE NEEDS: None needed SHIFT EVENTS: No acute events this shift. Patient slept well through the night. EDUCATION: Educated Patient on Post op symptoms UPCOMING PLAN OF CARE: Ongoing POC * Anika Downey R.N. - 05/16/2025 7:13 PM CDT INPATIENT SHIFT SUMMARY ORIENTATION: A&Ox3 SAFETY MEASURES: Met by Routine ASSISTED MOBILITY: Stand by assist VITALS: Vitals assessed and stable this shift INTAKE: Inadequate for solids, but improving, Inadequate for liquids, but improving, and Maintenance IV fluids OUTPUT: Patient has been urinating adequately. Patient has indwelling catheter in place. PAIN: Pain has been well controlled with scheduled medications PRN MEDICATIONS UTILIZED THIS SHIFT: Oxycodone and Compazine DVT PROPHYLAXIS: Lovenox injections CHG/BOWMAN CARE NEEDS: Bowman cares SHIFT EVENTS: No acute events this shift. Pt came to floor around 1530. Had one episode of emesis and nausea for a little bit. Improved after rest and compazine. Pt ambulated a little bit with no difficulty. UPCOMING PLAN OF CARE: Continue to monitor neuros, vitals, pain, safety. documented in this encounter OR Notes * Op Note - Melchor Marcelo D.O. - 05/16/2025 12:27 PM CDT Pre-op Diagnosis Fracture Femur Shaft Oblique Displaced Closed Initial Right (HCC) Post-op Diagnosis Fracture Femur Shaft Oblique Displaced Closed Initial Right (HCC) Senior Java Data Architect A airline pilot/first officer actively participated and was necessary for one or more of the following: opening, exposure and visualization, maintaining hemostasis, wound closure resulting in its safe and expeditious completion. Findings As expected Complications None Operative Note Narrative Operative indications: Patient is a 24-year-old individual admitted overnight from outside facility after injury to the right lower extremity. Workup in the emergency department found to have displaced and shortened femoral shaft fracture.I discussed the risks, benefits, and alternatives to non-operative versus surgical treatment. At no time were any guarantees implied or stated. Patient expressed understanding and a preference to proceed with surgery. Informed consent was obtained. Operative narrative: After confirming the patient had been held NPO for an adequate amount of time and the consent was indeed signed and placed in chart, patient is transferred from the emergency department to the operative suite. Patient is transferred to the operative table and care was taken to pad all bony prominences. General anesthetic was administered. Lower extremity was prepped and draped in normal sterile fashion. Time-out was performed and antibiotics as tranexamic acid was provided. Closed reduction of the fracture was performed. Fluoroscopy was used in both AP and lateral projection to confirm adequate positioning. We did not require opening of the fracture as we felt as though reduction was satisfactory. We then began with our approach. We did elect to proceed with retrograde nailing. Incision made to the anterior knee. We gently dissected down through subcutaneous tissues. Electrocautery was used for hemostasis. Identified the patella tendon. Arthrotomy was made just medial to the patella allowing us to retract it laterally. Bluntly dissected down until we were able to palpate the notch. Guidewire was placed in appropriate position using fluoroscopy. Tissue protector was then gently inserted. Opening Reamer was then used. We then confirmed adequate reduction of the fracture and long guidewire was placed to an appropriate depth at the proximal femur. This was measured. We then began s equentially reaming. We reamed until 10.5 mm at which point we had excellent chatter. Appropriatelysized Synthes retrograde femoral nail was obtained placed to the guide handle. It was then insertedwithout difficulty. We ensured depth of our nail. We then locked the nail distally. Two lateral to medial screws were placed through the guide handle. Additional oblique screw was also placed. Once pleased with distal fixation we moved proximally. Perfect circles were obtained and we placed 2 anterior posterior interlock screws in standard fashion. The most proximal oblong screw hole was utilized. At this point we were pleased with the reduction fixation of the fracture. Knee incision was irrigated copiously we did place vancomycin powder in the wound. Layered closure was performed with nylonsutures used on the skin. Sterile dressings applied. Patient was then transferred recovery having tolerated the procedure well. Postop protocol: Jace we will be admitted to the general surgical floor for further observation, pain control, DVT prophylaxis and physical therapy. Okay for weightbear as tolerated. We will utilize Lovenox for DVT prophylaxis. Anticipate short stay prior to discharge home. Follow up in the office in 2 weeks for evaluation and femur radiographs. Melchor Marcelo D.O. documented in this encounter ED Notes * Bam Kapoor M.D. - 05/16/2025 8:28 AM CDT SUBJECTIVE CHIEF COMPLAINT / REASON FOR VISIT Fall (Patient Ed to ED transfer from [facility] OUTSIDE DELIVERER. Right femur fx, presented in traction) HISTORY OF PRESENT ILLNESS 24-year-old male with medical history as below presenting to the emergency department for a femur fracture. Patient was seen in [place] where he was found to have a femur fracture after lifting uphis significant other and tripping. Patient experienced sudden onset pain and deformity of the right femur. Patient was seen and evaluated at [place] [facility] when in an x-ray confirmed femur fracture, patient was placed in traction and ultimately sent to [facility] for further evaluation and management. REVIEW OF SYSTEMS Constitutional: Negative for activity change, fatigue and fever. HENT: Negative for congestion and ear pain. Respiratory: Negative for cough, shortness of breath and wheezing. Cardiovascular: Negative for chest pain and palpitations. Gastrointestinal: Negative for abdominal pain, diarrhea, nausea and vomiting. Genitourinary: Negative for dysuria. Musculoskeletal: Positive for extremity pain. Negative for arthralgias and myalgias. ALLERGIES / CONTRAINDICATIONS Reviewed in medical record. CURRENT MEDICATIONS Reviewed in medical record. MEDICAL HISTORY Medical History[1] Patient Active Problem List Diagnosis Date Noted Fracture Femur Shaft Oblique Displaced Closed Initial Right (HCC) 05/16/2025 Fracture Lower End Femur Other Closed Initial Right (HCC) 05/16/2025 Asthma Exacerbation ([facility]) 05/16/2025 Gastroenteritis 05/16/2025 Gender Incongruence Adolescent Or Adult 05/16/2025 Tobacco Use 05/16/2025 Seizure ([facility]) 12/14/2024 Posttraumatic Stress Disorder Brief 05/31/2022 Attention Deficit Disorder Combined Type 02/04/2020 Anxiety Disorder Unspecified 02/04/2020 Cannabis Use Unspecified Uncomplicated 09/08/2019 Depression Major Recurrent Moderate ([facility]) 01/03/2018 Post Concussion Syndrome 09/22/2015 Disruptive Mood Dysregulation Disorder ([facility]) 09/19/2015 SURGICAL HISTORY Surgical History[2] FAMILY HISTORY Reviewed in chart. SOCIAL HISTORY Social History Tobacco Use Smoking status: Every Day Types: Cigarettes Smokeless tobacco: Current Substance Use Topics Alcohol use: Not on file Social History Substance and Sexual Activity Alcohol Use None Social History Substance and Sexual Activity Drug Use Not on file OBJECTIVE VITAL SIGNS Initial Vitals Temperature 05/16/25 0836 36.6 ??C Pulse Rate 05/16/25 0830 73 Heart Rate 05/16/25 0830 65 Resp Rate 05/16/25 0830 16 Blood Pressure 05/16/25 0830 (!) 134/93 SpO2 05/16/25 0830 95 % Pain Score 05/16/25 0835 6 PHYSICAL EXAMINATION Constitutional: Nursing note and vitals reviewed. He appears not lethargic. No distress. HENT: Head: Normocephalic and atraumatic. No signs of injury. Mouth/Throat: Mucous membranes are moist. Eyes: Conjunctivae and EOM are normal. Pupils are equal, round, and reactive to light. Neck: Neck supple. Cardiovascular: Capillary refill: takes less than 3 seconds Musculoskeletal: General: Normal range of motion. Cervical back: Normal range of motion and neck supple. Comments: Right leg in traction, pulses intact in the affected extremity, patient neurovascularly intact otherwise Neurological: Alert and oriented to person, place, and time. He has normal sensation, normal strength and cranial nerves II through XII intact. He is not disoriented. No cranial nerve deficit. GCS eye subscore is 4. GCS verbal subscore is 5. GCS motor subscore is 6. Normal speech. Coordination normal. Skin: Skin is warm and dry. He is not diaphoretic. ED COURSE: Final Diagnoses: as of 05/19/25 1158 Fracture Lower End Femur Other Closed Initial Right (HCC) INTERVENTIONS: Medications diazePAM injection 2.5 mg (Valium) (2.5 mg intravenous Given 05/16/25 0934) HYDROmorphone injection 0.5 mg (Dilaudid) (0.5 mg intravenous Given 05/16/25 0934) NaCl 0.9 % bolus 1,000 mL (0 mL intravenous Stopped 05/16/25 1125) oxyCODONE IR tablet 5 mg (Roxicodone) (5 mg oral Given 05/16/25 1451) diazePAM injection 5 mg (Valium) (5 mg intravenous Given 05/16/25 1033) ketorolac injection 15 mg (ToradoL) (15 mg intravenous Given 05/17/25 0331) ceFAZolin injection 2 g (Ancef) (2 g intravenous Given 05/16/25 2348) DIAGNOSTICS LABS: Labs Reviewed BASIC METABOLIC PANEL, S/P - Abnormal Result Value Potassium, P 3.7 Sodium, P 138 Chloride, P 104 Bicarbonate, P 24 Anion Gap, P 10 BUN (Blood Urea Nitrogen), P 7 Creatinine 0.83 Estimated GFR (eGFR) >90 Calcium, Total, P 8.3 (*) Glucose, P 108 CBC WITHOUT DIFFERENTIAL, B - Abnormal Hemoglobin 14.0 Hematocrit 40.2 Erythrocytes 4.64 MCV 86.6 RBC Distrib Width 13.0 Platelet Count 215 Leukocytes 14.0 (*) TYPE AND SCREEN ABO Group A Rh Type NEG Antibody Screen NEG Type & Screen Expiration 05/19/2025 23:59 ELXM Eligible Y TESTING LOCATION Testing Location [facility] ECG: ECG 12 Lead Result Date: 05/16/2025 Sinus rhythm with sinus arrhythmia Otherwise normal ECG No previous ECGs available Reviewed by RUPA Cortés RADIOLOGY: FL Fluoro Less Than 1 Hour Final Result DX Chest Portable 1 View Final Result No acute findings. DX Femur Right 2 Views (Results Pending) PROCEDURES: ASSESSMENT / PLAN IMPRESSION AND PLAN 24 y.o. female to male individual presenting to the ED for femur fracture. Patient was transferred to the [facility] ED from one of our [facility] sites with a diagnosed femur fracture and in traction. Patientcase discussed with orthopedic surgery on arrival regarding definitive management of femur fracture. Patient planned for OR intervention today. Patient lab work ordered to assess for pre-op abnormalities and to complete work up from [place]. Patient ED labs found to be reassuring, type and screen ordered due to upcoming surgery. Patient was ultimately taken to the OR for operative fixation of right leg femur fracture. Patient hemodynamically stable on transfer to the OR. DIFFERENTIAL DIAGNOSIS Femur fracture I reviewed previous medical records including radiology images/report and documentation from previous visits, with the following summary comments: see above. I personally reviewed the lab result(s) and my interpretation is documented in ED Course. I personally reviewed the radiology image(s) and reviewed the radiology report(s). The Radiology exam interpretation(s) is/are documented in ED Course. Case reviewed with other health hospice care sales consultant, including Orthopedics. DIAGNOSIS: Final diagnoses: [S72.491A] Fracture Lower End Femur Other Closed Initial Right (HCC) ED DISCHARGE MEDS: ED Prescriptions Medication Sig Dispense Start Date End Date Auth. Provider acetaminophen (TylenoL) 500 mg tablet (Status: Discontinued) Take 2 tablets (1,000 mg total) by mouth every 6 (six) hours for 30 days. 240 tablet 05/17/2025 05/17/2025 Nithin Hinds PArikAArik-Jackie., M.S. meloxicam (Mobic) 15 mg tablet (Status: Discontinued) Take 1 tablet (15 mg total) by mouth daily for 30 days. 30 tablet 05/17/2025 05/17/2025 Nithin Hinds P.A.-C., M.S. enoxaparin (Lovenox) 40 mg/0.4 mL injection (Status: Discontinued) Inject 0.4 mL (40 mg total) under the skin daily for 35 days. 14 mL 05/18/2025 05/17/2025 Nithin Hinds P.A.-C., M.S. oxyCODONE (Roxicodone) 5 mg immediate release tablet (Status: Discontinued) Take 1 tablet (5 mg total) by mouth every 4 (four) hours as needed for pain Indication: Prolonged Acute Pain/Traumatic Injury. Take 1 tab for pain 4-6, 2 tab for pain 7-10 every 4 hours as needed. 30 tablet 05/17/2025 05/17/2025 Nithin Hinds P.A.-C., M.S. sennosides-docusate sodium (Senokot-S) 8.6-50 mg per tablet (Status: Discontinued) Take 1 tablet bymouth at bedtime as needed for constipation. 30 tablet 05/17/2025 05/17/2025 Nithin Hinds P.A.-C., M.S. acetaminophen (TylenoL) 500 mg tablet Take 2 tablets (1,000 mg total) by mouth every 6 (six) hours for 30 days. 240 tablet 05/17/2025 06/16/2025 Nithin Hinds P.A.-C., M.S. meloxicam (Mobic) 15 mg tablet Take 1 tablet (15 mg total) by mouth daily for 30 days. 30 tablet 05/17/2025 06/16/2025 Nithin Hinds P.A.-C., M.S. enoxaparin (Lovenox) 40 mg/0.4 mL injection Inject 0.4 mL (40 mg total) under the skin daily for 35days. 14 mL 05/18/2025 06/22/2025 Nithin Hinds P.A.- C., M.S. oxyCODONE (Roxicodone) 5 mg immediate release tablet Take 1 tablet (5 mg total) by mouth every 4 (four) hours as needed for pain Indication: Prolonged Acute Pain/Traumatic Injury. Take 1 tab for pain4-6, 2 tab for pain 7-10 every 4 hours as needed. 30 tablet 05/17/2025 -- Nithin Hinds P.A.-CArik, M.S. sennosides-docusate sodium (Senokot-S) 8.6-50 mg per tablet Take 1 tablet by mouth at bedtime as needed for constipation. 30 tablet 05/17/2025 -- Nithin Hinds P.A.-C., M.S. DISPOSITION: Send to OR FOLLOW UP: Bam Kapoor M.D. Emergency Medicine [1] Past Medical History: Diagnosis Date Asthma NOS Brain Injury NOS Depression Posttraumatic Stress Disorder Prolonged [2] Past Surgical History: Procedure Laterality Date SURGICAL MANAGEMENT SHAFT FRACTURE FEMUR Right 05/16/2025 Procedure: SURGICAL MANAGEMENT SHAFT FRACTURE FEMUR; Surgeon: Melchor Marcelo D.O.; Location: [facility] Bam Kapoor M.D. 05/19/25 1201 documented in this encounter Plan of Treatment Upcoming Encounters Date Type Department Care Team (Late st Contact Info) Description 07/05/2025 1:00 PM CMM TECHNICIAN Appointment Department of Radiology, [facility], in [address] [phone] Andrew Hansen APRN, C.N.P., M.S.N. [address] [place] [phone] Discharge Disposition: Home or Self Care 07/05/2025 1:30 PM CMM TECHNICIAN Office Visit Department of Orthopedic Surgery in [address] [phone] Andrew Hansen APRN, C.N.P., M.S.N. [address] [place] [phone] Scheduled Referrals Name Type Priority Associated Diagnoses Order Schedule Orthopedic Surgery office visit (clinic) Outpatient Referral Routine Expected: 05/30/2025, Expires: 08/15/2026 documented as of this encounter Goals Goal Patient Goal Type Associated Problems Recent Progress Patient-Stated? Author Autogenerat ed Goal Care Plan Autogenerated Problem No Eyal Douglass, RArikN. documented as of this encounter Procedures Procedure Name Priority Date/Time Associated Diagnosis Comments CBC WITHOUT DIFFERENTIAL, B Routine 05/17/2025 6:48 AM CDT BASIC METABOLIC PANEL, S/P Routine 05/17/2025 6:48 AM CDT CONTINUOUS PULSE OXIMETRY Routine 05/16/2025 3:04 PM CDT CONTINUOUS PULSE OXIMETRY Routine 05/16/2025 3:04 PM CDT CONTINUOUS PULSE OXIMETRY Routine 05/16/2025 3:04 PM CDT ADULT OXYGEN THERAPY Routine 05/16/2025 2:19 PM CDT FL FLUORO LESS THAN 1 HOUR RAD - Routine (most inpatients and all outpatients) 05/16/2025 1:23 PM CDT SURGICAL MANAGEMENT SHAFT FRACTURE FEMUR 05/16/2025 11:59 AM CDT Fracture Femur Shaft Oblique Displaced Closed Initial Right (HCC) DX CHEST PORTABLE 1 VIEW RAD - Semiurgent (Fast; most ED patients; some inpatients) 05/16/2025 8:51 AM CDT ECG STAT 05/16/2025 8:45 AM CDT TESTING LOCATION Routine 05/16/2025 8:38 AM CDT TYPE AND SCREEN Routine 05/16/2025 8:38 AM CDT documented in this encounter Results * DX Femur Right 2 Views (05/31/2025 1:19 PM CDT) Anatomical Region Laterality Modality Lower Extremity, Femur, Musc uloskeletal RST LOS, Musculoskeletal ARZ LOS, Muskuloskeletal FLA LOS Right Digit al Radiography Impressions 05/31/2025 1:55 PM CDT Postoperative findings status post ORIF of the right femur. See additional comments. Narrative 05/31/2025 1:55 PM CDT EXAM: DX FEMUR RIGHT 2 VIEWS COMPARISON: 05/16/2025. FINDINGS: Postoperative findings status post ORIF of the right femoral diaphysis. Retrograde intramedullary america with proximal and distal interlocking screws. Essentially anatomic alignment at the fracture site postoperatively with regional periosteal callus formation and/or heterotopic ossification. Hip and knee joint spaces appear intact. Thin ossification projected adjacent to the medial femoral condyle on series 2, which may be sequela of prior MCL injury. Dedicated radiographic imaging of the right knee would better characterize if clinically indicated. Procedure Note Edilson Kowalski M.D. - 05/31/2025 EXAM: DX FEMUR RIGHT 2 VIEWS COMPARISON: 05/16/2025. FINDINGS: Postoperative findings status post ORIF of the right femoraldiaphysis. Retrograde intramedullary america with proximal and distalinterlocking screws. Essentially anatomic alignment at the fracture site postoperatively withregional periosteal callus formation and/or heterotopic ossification. Hip and knee joint spaces appear intact. Thin ossification projectedadjacent to the medial femoral condyle on series 2, which may be sequelaof prior MCL injury. Dedicated radiographic imaging of the right kneewould better characterize if clinically indicated. IMPRESSION: Postoperative findings status post ORIF of the right femur. See additionalcomments. Nithin Hinds P.A.-C., M.S. IMG DIAGNOSTIC I MAGING PROCEDURES Final Result * (ABNORMAL) CBC without Differential (05/17/2025 6:48 AM CDT) Hemoglobin 14.0 11.6 - 15.0 g/dL 05/17/2025 7:15 AM CDT MKTO Comment: Result consistent with patient history. patient receiving fluids per RN will evaluate Hematocrit 40.2 35.5 - 44.9 % 05/17/2025 7:15 AM CDT MKTO Comment: Result consistent with patient history. patient receiving fluids per RN - will evaluate Erythrocytes 4.64 3.92 - 5.13 x10(12)/L 05/17/2025 7:15 AM CDT MKTO MCV 86.6 78.2 - 97.9 fL 05/17/2025 7:15 AM CDT MKTO RBC Distrib Width 13.0 12.2 - 16.1 % 05/17/2025 7:15 AM CDT MKTO Platelet Count 215 157 - 371 x10(9)/L 05/17/2025 7:15 AM CDT MKTO Leukocytes 14.0(H) 3.4 - 9.6 x10(9)/L 05/17/2025 7:15 AM CDT MKTO Blood (Blood, Venous) 05/17/2025 6:48 AM CDT 05/17/2025 6:52 AM CDT Nithin Hinds P.A.-C., M.S. LAB BLOOD ADD-ON Final Result [facility] [address] [place] [address], [facility] MKTO [facility] [address] [place] [address] * (ABNORMAL) Basic Metabolic Panel (05/17/2025 6:48 AM CDT) Potassium, P 3.7 3.6 - 5.2 mmol/L 05/17/2025 7:16 AM CDT MKTO Sodium, P 138 135 - 145 mmol/L 05/17/2025 7:16 AM CDT MKTO Chloride, P 104 98 - 107 mmol/L 05/17/2025 7:16 AM CDT MKTO Bicarbonate, P 24 22 - 29 mmol/L 05/17/2025 7:16 AM CDT MKTO Anion Gap, P 10 7 - 15 05/17/2025 7:16 AM CDT MKTO BUN (Blood Urea Nitrogen), P 7 6 - 21 mg/dL 05/17/2025 7:16 AM CDT MKTO Creatinine 0.83 0.59 - 1.04 mg/dL 05/17/2025 7:16 AM CDT MKTO Estimated GFR (eGFR) >90 >=60 mL/min/BSA 05/17/2025 7:16 AM CDT MKTO Comment: Estimated GFR calculated using the 2020 CKD_EPI creatinine equation. Calcium, Total, P 8.3(L) 8.6 - 10.0 mg/dL 05/17/2025 7:16 AM CDT MKTO Glucose, P 108 70 - 140 mg/dL 05/17/2025 7:16 AM CDT MKTO Blood (Blood, Venous) 05/17/2025 6:48 AM CDT 05/17/2025 6:52 AM CDT us Nithin Hinds P.A.-C., M.S. LAB BLOOD ADD-ON Final Result [facility] [address] [place] [address], [place] MKTO [facility] [place] [address] [place] [address] * [place] Fluoro Less Than 1 Hour (05/16/2025 1:23 PM CDT) Narrative 9000 LOS [facility] - 05/16/2025 1:23 PM CDT This exam does not require a radiologist review or interpretation. Please refer to the patient's medical record on this date for clinical details. us Melchor Marcelo D.O. IMG FLUOROSCOPY PROCEDURES F inal Result 9000 LOS [facility] * DX Chest Portable 1 View (05/16/2025 8:51 AM CDT) Anatomical Region Laterality Modality Chest, Thoracic RST LOS, Tho racic ARZ LOS, Thoracic FLA LOS N/A Digital Radiography Impressions 05/16/2025 9:02 AM CDT No acute findings. Narrative 05/16/2025 9:02 AM CDT EXAM: DX CHEST PORTABLE 1 VIEW COMPARISON: None FINDINGS: Heart size and pulmonary vascularity normal. Lungs clear. No pleural effusion or pneumothorax. No acute bony abnormality. Procedure Note Winnie Keita M.D. - 05/16/2025 EXAM: DX CHEST PORTABLE 1 VIEW COMPARISON: None FINDINGS: Heart size and pulmonary vascularity normal. Lungs clear. Nopleural effusion or pneumothorax. No acute bony abnormality. IMPRESSION: No acute findings. us Bam Kapoor M.D. IMG DIAGNOSTIC IMAGING PROC EDURES Final Result * ECG 12 Lead (05/16/2025 8:45 AM CDT) Ventricular Rate ECG/Min 69 BPM MUSE W[place] Interval 125 ms MUSE QRSD Interval 92 ms MUSE QT Interval 380 ms MUSE QTC Interval 407 ms MUSE R [place] 81 degrees MUSE T Wave [place] 63 degrees MUSE 05/16/2025 8:45 AM CDT 05/16/2025 8:56 AM CDT Impressions MUSE - 05/16/2025 8:56 AM CDT Sinus rhythm with sinus arrhythmia Otherwise normal ECG No previous ECGs available Reviewed by RUPA Cortés Narrative Procedure Note Liu Luong M.D., Ph.D. - 05/16/2025 IMPRESSION: Sinus rhythm with sinus arrhythmia Otherwise normal ECG No previous ECGs available Reviewed by RUPA Cortés us Bam Kapoor M.D. ECG ORDERABLES Final Resul t Performing Organization Address City/[facility]/ZIP Co de Phone Number MUSE NA * Testing Location (05/16/2025 8:38 AM CDT) Testing Location [facility] DEFAULT 05/16/2025 8:59 AM CDT MKTO Blood 05/16/2025 8:38 AM CDT 05/16/2025 8:59 AM CDT us Bam Kapoor M.D. LAB BLOOD BANK TEST ORDERAB LES Final Result Performing Organization Address City/[facility]/ZIP Co de Phone Number [facility] [address] [place] [address], [facility] MKTO [facility] [place] [address] * Type and Screen (with Reflex Antibody ID) (05/16/2025 8:38 AM CDT) ABO Group A 05/16/2025 9:41 AM CDT MKTO Rh Type NEG 05/16/2025 9:41 AM CDT MKTO Antibody Screen NEG 9:55 AM CDT MKTO Type & Screen Expiration 05/19/2025 23:59 05/16/2025 9:55 AM CDT MKTO ELXM Eligible Y 05/16/2025 9:55 AM CDT MKTO Blood (Blood, Venous) 05/16/2025 8:38 AM CDT 05/16/2025 8:59 AM CDT us Bam Kapoor M.D. LAB BLOOD BANK TEST ORDERAB LES Final Result Performing Organization Address City/State/[facility] Co de Phone Number [facility] [address] [place] [address], [facility] MKTO [facility] [place] [address] [place] [address] documented in this encounter Visit Diagnoses Diagnosis Fracture Lower End Femur Other Closed Initial Right (HCC)- Primary Fracture Femur Shaft Oblique Displaced Closed Initial Right (HCC) Fracture Lower End Femur Other Closed Initial Right (HCC) Fracture Femur Shaft Oblique Displaced Closed Initial Right (HCC) Fracture Lower End Femur Other Closed Initial Right (HCC) documented in this encounter Admitting Diagnoses Diagnosis Fracture Lower End Femur Other Closed Initial Right (HCC) Fracture Femur Shaft Oblique Displaced Closed Initial Right (HCC) documented in this encounter Administered Medications Inactive Administered Medications - up to 3 most recent administrations Medication Order MAR Action Action Date Dose Rate Site acetaminophen tablet 1,000 mg (TylenoL) 1,000 mg, oral, Every 6 hours, First dose on 05/16/25 at 1800 Given 05/17/2025 11:37 AM CDT 1,000 mg Given 05/17/2025 6:28 AM CDT 1,000 mg Given 05/16/2025 11:48 PM CDT 1,000 mg ceFAZolin injection 2 g (Ancef) 2 g, intravenous, Every 8 hours, First dose on 05/16/25 at 1600, For 2 doses, First post-operative dose to be given 4 hours from last pre-operative/intra-operative dose. Dose: 1 gm for patients weighing less than 80 kg, 2 gm for patients weighing 80 kg or greater. For immediate IV push administration, reconstitute vial per IVAG or package insert instructions. See IVAG for administration guidelines., Drug Monitoring Program: Pharmacist to adjust medication dosing based on indication and drug clearance factors., Indications: Prophylaxis, surgicalIndications:Prophylaxis, surgical Given 05/16/2025 11:48 PM CDT 2 g Given 05/16/2025 3:29 PM CDT 2 g celecoxib capsule 200 mg (CeleBREX) 200 mg, oral, Daily, First dose on Sat05/17/25 at 0900, Hold for GFR <50ml/min/BSA, renal transplant, solitary kidney etc Given 05/17/2025 8:07 AM CDT 200 mg diazePAM injection 2.5 mg (Valium) 2.5 mg, intravenous, Once, On Sat05/16/25 at 0924, For 1 dose Given 05/16/2025 9:34 AM CDT 2.5 mg diazePAM injection 5 mg (Valium) 5 mg, intravenous, Once, On Sat05/16/25 at 1023, For 1 dose Given 05/16/2025 10:33 AM CDT 5 mg enoxaparin injection 40 mg (Lovenox) 40 mg, subcutaneous, Daily, First dose on Sat05/17/25 at 0900 Given 05/17/2025 8:07 AM CDT 40 mg Left Lower Abdomen HYDROmorphone injection 0.5 mg (Dilaudid) 0.5 mg, intravenous, Once, On Beulah 05/16/25 at 0924, For 1 dose Given 05/16/2025 9:34 AM CDT 0.5 mg HYDROmorphone injection 2 mg (Dilaudid) 2 mg, intravenous, Every 1 hour PRN, severe pain or score 7-10 of 10, Starting on Sat05/16/25 at 1021 Given 05/16/2025 11:26 AM CDT 2 mg Given 05/16/2025 10:28 AM CDT 2 mg ketorolac injection 15 mg (ToradoL) 15 mg, intravenous, Every 6 hours, First dose on Beulah 05/16/25 at 1530, For 3 doses, If patient received PACU dose - discontinue after 2 doses. Hold for GFR <50ml/min/BSA, renal transplant, solitary kidney etc Adult IV push rate: Over 15 seconds. Peds IV push rate: Over 1 minute. Doses > 15 mg IV/IM are discouraged due to lack of additional analgesic benefit. Given 05/17/2025 3:31 AM CDT 15 mg Given 05/16/2025 8:31 PM CDT 15 mg Given 05/16/2025 3:29 PM CDT 15 mg Lactated Ringer's 75 mL/hr, intravenous, Continuous, Starting on 05/16/25 at 1530 New Bag 05/17/2025 4:23 AM CDT 75 mL/hr 75 mL/hr New Bag 05/16/2025 3:29 PM CDT 75 mL/hr 75 mL/hr NaCl 0.9 % bolus 1,000 mL 1,000 mL, intravenous, at 1,000 mL/hr, Administer over 1 Hours, Once, On 05/16/25 at 0924, For 1 dose New Bag 05/16/2025 9:35 AM CDT 1,000 mL 1000 mL/hr NaCl 0.9% infusion 100 mL/hr, intravenous, Continuous, Starting on 05/16/25 at 0924 Restarted 05/16/2025 12:04 PM CDT Rate/Dose Verify 05/16/2025 11:59 AM CDT 100 mL /hr New Bag 05/16/2025 11:25 AM CDT 100 mL/hr 100 mL/hr nicotine 7 mg/24 hr 1 patch (Nicoderm CQ) 1 patch, transdermal, Administer over 24 Hours, Daily, First dose on 05/16/25 at 1830 Medication Applied 05/17/2025 8:08 AM CDT 1 patch Right Shoulder Medication Applied 05/16/2025 6:22 PM CDT 1 patch Left Shoulder oxyCODONE IR tablet 10 mg (Roxicodone) 10 mg, oral, Every 4 hours PRN, severe pain or score 7-10 of 10, Starting on 05/16/25 at 1504, Second line therapy. If patient is greater than 7 after 2 hours, call service for new order. May administer lower pain scale value dose of prescribed medication based on patient request oxyCODONE IR tablet 5 mg (Roxicodone) 5 mg, oral, Once as needed, For pain 4 or greater, Starting on 05/16/25 at 1419, For 1 dose, PACU (only) Given 05/16/2025 2:51 PM CDT 5 mg oxyCODONE IR tablet 5 mg (Roxicodone) 5 mg, oral, Every 4 hours PRN, moderate pain or score 4-6 of 10, Starting on 05/16/25 at 1504, Second line therapy Given 05/16/2025 10:39 PM CDT 5 mg Given 05/16/2025 6:27 PM CDT 5 mg prochlorperazine injection 5 mg (Compazine) 5 mg, intravenous, Every 6 hours PRN, nausea, vomiting, Starting on 05/16/25 at 1504, For 48 hours, RASS must be -2 or higher to administer. Reassess for nausea/vomiting after at least 10 minutes. If nausea or vomiting persists administer next ordered antiemetic medications (order for antiemetic medication administration ondansetron then haloperidol then prochlorperazine) Given 05/16/2025 8:39 PM CDT 5 mg Given 05/16/2025 3:29 PM CDT 5 mg sennosides-docusate sodium 8.6-50 mg per tablet 1 tablet (Senokot-S) 1 tablet, oral, 2 times daily, First dose on 05/16/25 at 2100, Do not give if patient has diarrhea. Given 05/17/2025 8:07 AM CDT 1 tablet Given 05/16/2025 8:31 PM CDT 1 tablet documented in this encounter Active and Recently Administered Medications Times are shown in CDT. Scheduled Medication Order 05/15/2025 05/16/2025 05/17/2025 acetaminophen tablet 1,000 mg (TylenoL) 1,000 mg, oral, Every 6 hours, First dose on 05/16/25 at 1800 1714 (Given - Provider: Anika Downey RArikN.)3486 (Given - Provider: Madeline Villanueva R.N.) 0628 (Given - Provider: Madeline Villanueva R.N.)1137 (Given - Provider: Isela Quevedo R.N.) ceFAZolin injection 2 g (Ancef) (COMPLETED) 2 g, intravenous, Every 8 hours, First dose on 05/16/25 at 1600, For 2 doses, First post-operative dose to be given 4 hours from last pre-operative/intra-operati ve dose. Dose: 1 gm for patients weighing less than 80 kg, 2 gm for patients weighing 80 kg or greater. For immediate IV push administration, reconstitute vial per IVAG or package insert instructions. See IVAG for administration guidelines., Drug Monitoring Program: Pharmacist to adjust medication dosing based on indication and drug clearance factors., Indications: Prophylaxis, surgical 1529 (Given - Provider: Anika Downey R.N.)2348 (Given - Provider: Madeline Villanueva R.N.) celecoxib capsule 200 mg (CeleBREX) 200 mg, oral, Daily, First dose on Sat05/17/25 at 0900, Hold for GFR <50ml/min/BSA, renal transplant, solitary kidney etc 0807 (Given - Provid er: Isela Quevedo R.N.) diazePAM injection 2.5 mg (Valium) (COMPLETED) 2.5 mg, intravenous, Once, On 05/16/25 at 0924, For 1 dose 0934 (Given - Provider: Daly Melton R.N.) diazePAM injection 5 mg (Valium) (COMPLETED) 5 mg, intravenous, Once, On Sat05/16/25 at 1023, For 1 dose 1033 (Given - Provider: Daly Melton R.N.) enoxaparin injection 40 mg (Lovenox) 40 mg, subcutaneous, Daily, First dose on Sat05/17/25 at 0900 0807 (Given - Provid er: Isela Quevedo R.N.) HYDROmorphone injection 0.5 mg (Dilaudid) (COMPLETED) 0.5 mg, intravenous, Once, On Sat05/16/25 at 0924, For 1 dose 0934 (Given - Provider: Alex GarciaN.) ketorolac injection 15 mg (ToradoL) (COMPLETED) 15 mg, intravenous, Every 6 hours, First dose on Sat05/16/25 at 1530, For 3 doses, If patient received PACU dose - discontinue after 2 doses. Hold for GFR <50ml/min/BSA, renal transplant, solitary kidney etc Adult IV push rate: Over 15 seconds. Peds IV push rate: Over 1 minute. Doses > 15 mg IV/IM are discouraged due to lack of additional analgesic benefit. 1529 (Given - Provider: Anika Downey R.N.)2030 (Given - Provider: Madeline Villanueva R.N.) 0331 (Given - Provider: Madeline Villanueva R.N.) NaCl 0.9 % bolus 1,000 mL (COMPLETED) 1,000 mL, intravenous, at 1,000 mL/hr, Administer over 1 Hours, Once, On 05/16/25 at 0924, For 1 dose 0935 (New Bag - Provider: Daly Melton RAmanda)1125 (Stopped - Provider: Daly Melton R.N.) nicotine 7 mg/24 hr 1 patch (Nicoderm CQ) 1 patch, transdermal, Administer over 24 Hours, Daily, First dose on 05/16/25 at 1830 1822 (Medication Applied - Provider: Anika Downey R.N.) 0807 (Medication Removed - Provider: Isela Quevedo R.N.)0808 (Medication Applied - Provider: Isela Quevedo R.N.)1416 (Due: Medication Removed - Provider: Discharge Provider, Automatic - Comment: Time automatically adjusted from order being discontinued) prochlorperazine injection 10 mg (Compazine) 10 mg, intravenous, Once, On 05/16/25 at 1022, For 1 dose 1022 (Due)1159 (MAR Hold - Provider: Transfer Provider, Automatic - Reason: Patient not available)1512 (MAR Unhold - Provider: Transfer Provider, Automatic) sennosides-docusate sodium 8.6-50 mg per tablet 1 tablet (Senokot-S) 1 tablet, oral, 2 times daily, First dose on 05/16/25 at 2100, Do not give if patient has diarrhea. 2030 (Given - Provider: Madeline Villanueva R.N.) 0807 (Given - Provider: Isela Quevedo RAmanda) Continuous Medication Order 05/15/2025 05/16/2025 05/17/2025 Lactated Ringer's 75 mL/hr, intravenous, Continuous, Starting on 05/16/25 at 1530 1529 (New Bag - Provider: Anika Downey R.N.) 0423 (New Bag - Provider: Deny Ortega R.N.)1139 (Stopped - Provider: Isela Quevedo R.N.) NaCl 0.9% infusion 100 mL/hr, intravenous, Continuous, Starting on 05/16/25 at 0924 1125 (New Bag - Provider: Daly Melton R.N.)1156 (Continue to Inpatient Floor - Provider: Daly Melton R.N.)1159 (Rate/Dose Verify - Provider: Mavis Haas APRN, CRNA, D.N.P.)1203 (Paused - Provider: Mavis Haas APRN, CRNA, D.N.P. - Comment: Switch to gravity)1204 (Restarted - Provider: Mavis Haas APRN, CRNA, D.N.P.)1335 (Anesthesia Volume Adjustment - Provider: Mavis Haas APRN, CRNA, D.N.P.) 0424 (Canceled Entry - Provider: Madeline Villanueva R.N.) PRN Medication Order 05/15/2025 05/16/2025 05/17/2025 bisacodyL suppository 10 mg (Dulcolax) 10 mg, rectal, Daily PRN, constipation, Starting on 05/16/25 at 1504, Ordered sequence of administration: polyethylene glycol, then bisacodyl until BM achieved. BUPivacaine-EPINEPHrine (PF) 0.5 %-1:200,000 injection (Marcaine w/Epi) (CANCELED) As needed, Starting on 05/16/25 at 1322, Intra-Op 1322 (Given - Provider: Ben Marcelo D.O.) calcium carbonate chewable tablet 400 mg of calcium (Tums) 400 mg of calcium, oral, Every 2 hour PRN, indigestion, Starting on 05/16/25 at 1504, Doses listed are in mg of elemental calcium. Take with food. 500 mg calcium carbonate contains 200 mg of elemental calcium. haloperidol lactate injection 1 mg (HaldoL) 1 mg, intravenous, Every 6 hours PRN, nausea, vomiting, Starting on 05/16/25 at 1504, For 48 hours, Total of 3 doses in 24 hour period. RASS must be -2 or higher to administer. Reassess for nausea or vomiting after at least 10 minutes. If nausea or vomiting persists administer next ordered antiemetic medications (order for antiemetic medication administration ondansetron then haloperidol then prochlorperazine) HYDROmorphone injection 0.25 mg (Dilaudid) 0.25 mg, intravenous, Every 2 hour PRN, severe pain or score 7-10 of 10, Starting on 05/16/25 at 1504, For 2 doses, May administer if pain is greater than 7 after scheduled and PRN regimen exhausted. If pain remains greater than 7, notify primary service. HYDROmorphone injection 2 mg (Dilaudid) 2 mg, intravenous, Every 1 hour PRN, severe pain or score 7-10 of 10, Starting on 05/16/25 at 1021 1028 (Given - Provider: Orly Melton R.N.)1126 (Given - Provider: Daly Melton R.N.)1159 (OCT Hold - Provider: Transfer Provider, Automatic - Reason: Patient not available)1512 (OCT Unhold - Provider: Transfer Provider, Automatic) loratadine tablet 10 mg (Claritin) 10 mg, oral, Daily PRN, allergies, for opioid induced pruritus, Starting on 05/16/25 at 1504 menthol lozenge 1 lozenge 1 lozenge, oral, As needed, sore throat, Starting on 05/16/25 at 1504 naloxone injection 0.2 mg 0.2 mg, intravenous, As needed, respiratory depression, Starting on 05/16/25 at 1504, For RASS Score -4 or less, respiratory rate of less than 8 breaths/min. Notify provider/service and rapid response team (if available at institution). ondansetron (PF) injection 4 mg (Zofran) 4 mg, intravenous, Every 6 hours PRN, nausea, vomiting, Starting on 05/16/25 at 1504, For 48 hours, Reassess for nausea or vomiting after at least 10 minutes. If nausea or vomiting persists administer next ordered antiemetic medications (order for antiemetic medication administration ondansetron then haloperidol then prochlorperazine). 2030 (Not Given - Provider: Madeline Villanueva R.N. - Reason: Contraindicated - Comment: allergic) oxyCODONE IR tablet 10 mg (Roxicodone)(Linked Group 1) 10 mg, oral, Every 4 hours PRN, severe pain or score 7-10 of 10, Starting on 05/16/25 at 1504, Second line therapy. If patient is greater than 7 after 2 hours, call service for new order. May administer lower pain scale value dose of prescribed medication based on patient request 1826 (See Alternative - Provider: Anika Downey R.N.)2238 (See Alternative - Provider: Madeline Villanueva R.N.) oxyCODONE IR tablet 5 mg (Roxicodone) (COMPLETED) 5 mg, oral, Once as needed, For pain 4 or greater, Starting on 05/16/25 at 1419, For 1 dose, PACU (only) 1451 (Given - Provider: Ani Hughes R.N.) oxyCODONE IR tablet 5 mg (Roxicodone)(Linked Group 1) 5 mg, oral, Every 4 hours PRN, moderate pain or score 4-6 of 10, Starting on 05/16/25 at 1504, Second line therapy 1826 (Given - Provider: Ana M Downey R.N.)2238 (Given - Provider: Madeline Villanueva R.N.) phenoL 1.4 % spray 5 spray (Chloraseptic) 5 spray, mouth/throat, Every 2 hour PRN, sore throat, Starting on 05/16/25 at 1504, to mouth/throat polyethylene glycol powder packet 1 packet (Miralax) 1 packet, oral, Daily PRN, constipation, Starting on 05/16/25 at 1504, Ordered sequence of administration: polyethylene glycol, then bisacodyl until BM achieved. Avoid mixing with starch-based thickened liquids. prochlorperazine injection 5 mg (Compazine) 5 mg, intravenous, Every 6 hours PRN, nausea, vomiting, Starting on 05/16/25 at 1504, For 48 hours, RASS must be -2 or higher to administer. Reassess for nausea/vomiting after at least 10 minutes. If nausea or vomiting persists administer next ordered antiemetic medications (order for antiemetic medication administration ondansetron then haloperidol then prochlorperazine) 152 (Given - Provider: Ana M Downey R.N.)2038 (Given - Provider: Madeline Villanueva R.N.) vancomycin injection (CANCELED) As needed, Starting on 05/16/25 at 1321, Intra-Op 1321 (Given - Provider: Ben Marcelo D.O.) Linked Groups Order Group 1: oxyCODONE IR tablet 5 mg (Roxicodone)Jump to med 5 mg, oral, Every 4 hours PRN, moderate pain or score 4-6 of 10, Starting on 05/16/25 at 1504, Second line therapy Or oxyCODONE IR tablet 10 mg (Roxicodone)Jump to med 10 mg, oral, Every 4 hours PRN, severe pain or score 7-10 of 10, Starting on 05/16/25 at 1504, Second line therapy. If patient is greater than 7 after 2 hours, call service for new order. 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
--- OUTSIDE RECORDS SUMMARY | 2025-05-16 11:59 | XMS_ITS | Encounter Summary ---
Author Organization [facility] Address [address] [place] [address] Care Team Providers Care Communication Consultant Name Role Phone Elsewhere, Pcp Primary Care Provider Unavailabl e Encounter Details Date Type Department Care Team (Late st Contact Info) Description 05/16/2025 11:59 AM CDT Anesthesia Event [facility] in [place], [place] [address] [place] [phone] Annmarie Spencer M.D. [address] [place] [address] [phone] Anesthesia Record Procedure Summary Procedure Name Responsible Anesthesiologist Anesthesia Start Time Anesthesia Stop Time SURGICAL MANAGEMENT SHAFT FRACTURE FEMUR (Right) Annmarie Spencer M.D. 05/16/25 1159 05/16/25 1415 Events Date Time Event Comment 05/16/2025 1002 1159 An Start Machine/Equipme nt Checked Infection Precautions Followed Procedure/Site Verified NPO Status Verified Supine Standard ASA Monitors Applied 1203 An Induction 1208 An Intubation 1210 Turnover to Proceduralist 1227 Proc Start 1340 Proc Fin 1341 Turnover to ANE Staff 1409 an stop data 1409 Airway Device Ma intained to Post Op Area 1415 An End I completed my handoff to the receiving staff during which we 1. Identified the patient 2. Identified the responsible provider 3. Reviewed the pertinent medical history 4. Discussed the surgical course 5. Reviewed intra-op anesthesia management and issues during anesthesia 6. Set expectations for post-procedure period 7. Allowed opportunity for questions and acknowledgement of understanding. Meds Name Total lidocaine 2% (mg) injection 100 mg rocuronium 10 mg/mL injection 60 mg sugammadex 100 mg/mL injection 200 mg propofol 10 mg/mL injection 200 mg dexAMETHasone (Decadron) injection 10 mg /mL 10 mg ceFAZolin (Ancef) injection 1 g/5 mL 2 g HYDROmorphone (Dilaudid) injection 1 mg/ mL syringe 1 mg ketamine injection 10 mg/mL 30 mg tranexamic acid (Cyklokapron) IVPB 1,000 mg in NaCL 100 mL, iso osmotic 1 g acetaminophen injection 1,000 mg/100 mL (RESTRICTED) 1,000 mg droPERidoL (Inapsine) injection 2.5 mg/m L 0.625 mg caffeine-sodium benzoate injection 250 m g (125 mg caffeine)/mL 250 mg NaCl 0.9% infusion 1,000 mL * Agents No agents on file. * Blood No blood administrations on file. Lines, Drains, and Airways Type Details Placement Removal Wound 05/16/25; N; Incisio n; Thigh; Right, Anterior; Incision closed with suture and dermabond, 3 incisions; Aquacel 05/16/25 0000 by Eyal Douglass RAmanda ETT Placement Date: 04/27 09/19; Placement Time: (in OR by OR staff); Type: Standard ETT; Location: Oral; Removal Date: 05/16/25; Removal Time: 1428 05/16/25 0000 by Belkys Hughes R.N. 05/16/25 1428 by Belkys Hughes RAmanda Peripheral IV Placement Date: 04/27 09/19; Placement Time: 0130; Catheter Size: 20 G; Orientation: Right; Location: Antecubital; Site Prep: Chlorhexidine (Preferred); Technique: Anatomical landmarks; Inserted by: Steffen Yu RN; Insertion Attempts: 1; Removal Date: 05/17/25; Removal Time: 1301; Removal Reason: Patient discharged 05/16/25 0130 by Kylee Stein RAmanda 05/17/25 1301 by Isela Quevedo RAmanda Peripheral IV Placement Date: 04/27 09/19; Placement Time: 0134; Catheter Size: 20 G; Orientation: Left; Location: Antecubital; Site Prep: Chlorhexidine (Preferred); Technique: Anatomical landmarks; Removal Date: 05/17/25; Removal Time: 1301; Removal Reason: Patient discharged 05/16/25 0134 by Kylee Stein RAmanda 05/17/25 1301 by Isela Quevedo RAmanda Indwelling Urinary Catheter Placement Date: 05/16/25; Placement Time: 612; Inserted by: Kylee Gasca RN; Size: 16 Fr.; Balloon Size: 10 mL; Urine Returned: Yes; Removal Date: 05/16/25; Removal Time: 2114; Removal Reason: Per patient/family request 05/16/25612 by Kylee Stein R.N. 05/16/252114 by Madeline Sullivan RAmanda ETT Placement Date: 04/27 09/19; Placement Time: 120 (created via procedure documentation); Mask Ventilation: Easy mask; Technique: Video laryngoscopy; Type: Standard ETT; Single Lumen Tube Size: 7 mm; Cuffed: Yes; Location: Oral; Grade View: Grade 1; Insertion Attempts: 1; Placement Verification: Bilateral breath sounds, Positive ETCO2, Symmetrical chest wall movement; Removal Date: 05/16/25; Removal Time: 14205/16/25 1208 by Mavis Haas APRN, CRNA, D.NArikP. 05/16/251427 by Belkys Hughes RArikNArik documented in this encounter Social History Tobacco Use Types Packs/Day Years Used Date Smoking Tobacco: Every Day Cigarettes Smokeless Tobacco: Current Humiliation, Afraid, Rape, and Kick questionnair e [...] things needed for daily living? No 05/16/2025 [facility] Utilities Answer Date Recorded In the past 12 months has th e electric, gas, oil, or water company threatened to shut off services in your home? No 05/16/2025 Housing Stability Answer Date Recorded What is your living situation today? 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 - 05/16/2025 2:53 PM CDT Patient: Luli Wharton Procedure Summary Date: 05/16/25 Room / Location: [address] Anesthesia Start: 1159 Anesthesia Stop: 1415 Procedure: SURGICAL MANAGEMENT SHAFT FRACTURE FEMUR (Right) Diagnosis: Fracture Femur Shaft Oblique Displaced Closed Initial Right (HCC) (Fracture Femur Shaft Oblique Displaced Closed Initial Right (HCC) [S72.331A]) Providers: Melchor Marcelo D.O. Responsible Provider: Annmarie Spencer M.D. Anesthesia Type: general ASA Status: 2 - Emergent Anesthesia Type: general Last vitals Vitals Value Taken Time BP 125/91 05/16/25 14:50 Temp 36.5 ??C 05/16/25 14:45 Pulse 101 05/16/25 14:53 Resp 18 05/16/25 14:53 SpO2 95 % 05/16/25 14:53 Vitals shown include unfiled device data. Please reference Vitals flowsheet for most recent vital signs. Anesthesia Post Evaluation Patient Disposition: general care unit Cardiovascular status: hemodynamics (HR & BP) acceptable Respiratory status: patent airway with spontaneous effort Temperature: normothermic Oxygen requirements: nasal cannula Level of consciousness: awake Pain score: pain adequately controlled and/or at baseline Post Op nausea/vomiting: none Hydration status: euvolemic Notable Events No notable events documented. * Anesthesia Procedure Notes - Mavis Haas APRN, CRNA, D.N.P. - 05/16/2025 12:15 PM CDTAssociated Order(s): Airway Airway Date/Time: 05/16/2025 12:08 PM Performed by: Mavis Haas APRN, CRNA, D.N.P. Authorized by: Annmarie Spencer M.D. Patient location during procedure: OR / Procedure Area PROCEDURE DETAILS: Mask difficulty assessment: easy mask Final airway type: video laryngoscope Laryngeal Manipulation: no Final best view of glottic structures - Cormack/Lehane Score: grade 1 ETT location: oral VL device: MAC Babin MAC Babin blade size: 3 Tube size: 7 ETT distance at teeth/gum: 21 Oral tube type: standard ETT Cuffed: yes Number of attempt to successful placement: 1 Airway confirmation: bilateral breath sounds, positive ETCO2 and bilateral chest rise Other previous techniques attempted: none PRE PROCEDURE DETAILS: Pre evaluation for airway management: procedure Urgency: elective Preop assessment of probable difficulty: no difficulty anticipated Preoxygenation: bag valve mask SEDATION / ANESTHESIA Anesthesia method: anesthesia POST PROCEDURE DETAILS: Procedure outcome: successful Notable Events: no complications * Anesthesia Preprocedure Evaluation - Annmarie Spencer M.D. - 05/16/2025 9:57 AM CDT Preprocedure Anesthesia & H&P Assessment Procedure Summary Date/Time: 05/16/25 1240 Procedure: SURGICAL MANAGEMENT SHAFT FRACTURE FEMUR (Right) Diagnosis: Fracture Femur Shaft Oblique Displaced Closed Initial Right (HCC) [S72.331A] Pre-op diagnosis: Fracture Femur Shaft Oblique Displaced Closed Initial Right (HCC) [S72.331A] Location: [address] Providers: Melchor Marcelo D.O. Pertinent components of the patient's history including current problem list, medical history, surgical history, family history, social history, medications and allergies were reviewed. Present illness and pre-op diagnosis were confirmed. The planned surgery / procedure was verified with the patient / legal guardian. 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, no recurrence not on antiepileptic medications Respiratory (+) Asthma Exacerbation (HCC) -Duoneb -Flonase -Singulair -Symbicort (pt report, not on med list) -Albuterol (Uses albuterol multiple times per day , controller meds and duonebs daily) Digestive (+) Gastroenteritis Musculoskeletal (+) Fracture Femur Shaft Oblique Displaced Closed Initial Right (HCC) (+) Fracture Lower End Femur Other Closed Initial Right (HCC) Psychiatric (+) Anxiety Disorder Unspecified (+) Attention Deficit Disorder Combined Type (+) Disruptive Mood Dysregulation Disorder (HCC) (+) Gender Incongruence Adolescent Or Adult -Abilify -Sertraline -Trazodone Substance Use Disorder (+) Tobacco Use -Extensive, both cigarettes and vaping products Other (+) Cannabis Use Unspecified Uncomplicated -Daily, last use was yesterday Labs 05/16/2025: Hgb 17.8, Plt 234, INR 0.9, Na 139, K 3.3, Creat 1.07. T&S active. ECG 05/16/2025: IMPRESSION: Sinus rhythm with sinus arrhythmia Otherwise normal ECG No previous ECGs available OBJECTIVE PHYSICAL EXAMINATION Airway (HEENT) Mallampati: II TM Distance: >3 FB Neck ROM: Full Mouth Opening: >3 cm Cardiovascular Rhythm: Regular Rate: Normal Cardiovascular Assessment: cardiovascular normal Functional Capacity: >4 METS Pulmonary Pulmonary Assessment: Clear General / Constitutional Constitutional Assessment: Overweight Neurological Neurologic Assessment: alert and alert and oriented x 3 Dental Dental Assessment: dentition intact ASSESSMENT / PLAN ANESTHESIA PLAN ASA: 2 - Emergent Anesthesia Plan: general Discussed possibility of post op pain block, will also discuss with surgeon. Pt voiced consent to this if indicated. Patient seen and allergies reviewed, anesthesia plan and risks discussed directly with patient /legal guardian or through an diplomatic interpreter. Risks/Benefits/Alternatives of Blood transfusion discussed with patient / legal guardian, includingan opportunity to ask questions and/or decline some or all transfusion therapies. The patient / legal guardian consented to the use of all blood products, as deemed medically necessary Approval to Proceed: approved for anesthesia documented in this encounter Plan of Treatment Upcoming Encounters Date Type Department Care Team (Late st Contact Info) Description 07/05/2025 1:00 PM HYDRAULIC LIFT DRIVER Appointment Department of Radiology, [facility], in [address] [phone] Andrew Hansen APRN, C.N.P., M.S.N. [address] [place] [phone] Discharge Disposition: Home or Self Care 07/05/2025 1:30 PM HYDRAULIC LIFT DRIVER Office Visit Department of Orthopedic Surgery in [address] [phone] Andrew Hansen APRN, C.N.P., M.S.N. [address] [place] [phone] documented as of this encounter Goals Goal Patient Goal Type Associated Problems Recent Progress Patient-Stated? Author Autogenerat ed Goal Care Plan Autogenerated Problem No Eyal Douglass R.N. documented as of this encounter Procedures Procedure Name Priority Date/Time Associated Diagnosis Comments LDA ANE ENDOTRACHEAL AIRWAY Routine 05/16/2025 12:08 PM CDT documented in this encounter Results * LDA ANE ENDOTRACHEAL AIRWAY (05/16/2025 12:08 PM CDT) Narrative Mavis Haas APRN, CRNA, D.N.P. - 05/16/2025 12:08 PM CDT Mavis Haas APRN, CRNA D.N.P. 05/16/2025 12:16 PM Airway Date/Time: 05/16/2025 12:08 PM Performed by: Mavis Haas APRN, CRNA D.N.P. Authorized by: Annmarie Spencer M.D. Patient location during procedure: OR / Procedure Area PROCEDURE DETAILS: Mask difficulty assessment: easy mask Final airway type: video laryngoscope Laryngeal Manipulation: no Final best view of glottic structures - Cormack/Lehane Score: grade 1 ETT location: oral VL device: MAC Babin MAC Babin blade size: 3 Tube size: 7 ETT distance at teeth/gum: 21 Oral tube type: standard ETT Cuffed: yes Number of attempt to successful placement: 1 Airway confirmation: bilateral breath sounds, positive ETCO2 and bilateral chest rise Other previous techniques attempted: none PRE PROCEDURE DETAILS: Pre evaluation for airway management: procedure Urgency: elective Preop assessment of probable difficulty: no difficulty anticipated Preoxygenation: bag valve mask SEDATION / ANESTHESIA Anesthesia method: anesthesia POST PROCEDURE DETAILS: Procedure outcome: successful Notable Events: no complications Annmarie Spencer M.D. ANESTHESIA ORDERABLES Fin al Result documented in this encounter Visit Diagnoses Not on filedocumented in this encounter Administered Medications Inactive Administered Medications - up to 3 most recent administrations Medication Order MAR Action Action Date Dose Rate Site acetaminophen injection intravenous, Administer over 15 Minutes, As needed, Starting on 05/16/25 at 1232, Anesthesia Intra-op Given 05/16/2025 12:32 PM CDT 1,000 mg caffeine-sodium benzoate injection intravenous, As needed, Starting on 05/16/25 at 1357, Anesthesia Intra-op Given 05/16/2025 1:57 PM CDT 250 mg ceFAZolin injection (Ancef) intravenous, As needed, Starting on 05/16/25 at 1210, Anesthesia Intra-op Given 05/16/2025 12:10 PM CDT 2 g dexAMETHasone injection (Decadron) intravenous, As needed, Starting on 05/16/25 at 1209, Anesthesia Intra-op Given 05/16/2025 12:09 PM CDT 10 mg droPERidoL injection (Inapsine) intravenous, As needed, Starting on 05/16/25 at 1235, Anesthesia Intra-op Given 05/16/2025 12:35 PM CDT 0.625 mg HYDROmorphone injection (Dilaudid) intravenous, As needed, Starting on 05/16/25 at 1203, Anesthesia Intra-op Given 05/16/2025 12:03 PM CDT 1 mg ketamine injection (Ketalar) intravenous, As needed, Starting on 05/16/25 at 1226, Anesthesia Intra-op Given 05/16/2025 12:26 PM CDT 30 mg lidocaine (PF) (cardiac) injection intravenous, As needed, Starting on 05/16/25 at 1203, Anesthesia Intra-op Given 05/16/2025 12:07 PM CDT 40 mg Given 05/16/2025 12:03 PM CDT 60 mg NaCl 0.9% infusion 100 mL/hr, intravenous, Continuous, Starting on 05/16/25 at 0924 Restarted 05/16/2025 12:04 PM CDT Rate/Dose Verify 05/16/2025 11:59 AM CDT 100 mL /hr New Bag 05/16/2025 11:25 AM CDT 100 mL/hr 100 mL/hr propofoL injection (Diprivan) intravenous, As needed, Starting on 05/16/25 at 1205, Anesthesia Intra-op Given 05/16/2025 12:05 PM CDT 200 mg rocuronium injection (Zemuron) intravenous, As needed, Starting on 05/16/25 at 1206, Anesthesia Intra-op Given 05/16/2025 12:20 PM CDT 10 mg Given 05/16/2025 12:06 PM CDT 50 mg sugammadex injection (Bridion) intravenous, As needed, Starting on 05/16/25 at 1337, Anesthesia Intra-op Given 05/16/2025 1:37 PM CDT 200 mg tranexamic acid in NaCl IVPB (Cyklokapron) intravenous, Administer over 20 Minutes, As needed, Starting on 05/16/25 at 1222, Anesthesia Intra-op Given 05/16/2025 12:22 PM CDT 1 g documented in this encounter Additional Health Concerns Active Problems Noted Date Diagnosed Date Autogenerated Problem 05/16/2025 documented as of this encounter Care Teams Communication Consultant Relationship Specialty Start Date End Date Elsewhere, Pcp PCP - General Internal Medicine 05/16/25 documented as of this encounter
--- OUTSIDE RECORDS SUMMARY | 2025-05-16 12:15 | XMS_ITS | Encounter Summary ---
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 Right femur fx, presented in traction Encounter Details Date Type Department Care Team ([facility] st Contact Info) Description 05/16/2025 12:15 PM CDT - 05/16/2025 2:52 PM CDT Surgery Outpatient Procedure Center in [place], [place] [address] [place] [phone] Melchor Marcelo D.O. [address] [place] [phone] SURGICAL MANAGEMENT SHAFT FRACTURE FEMUR Social History Tobacco Use Types Packs/Day Years [...] things needed for daily living? No 05/16/2025 [facility] Utilities Answer Date Recorded In the past 12 months has [employer], gas, oil, or water company threatened to shut off services in your home? No 05/16/2025 Housing Stability Answer Date Recorded What is your living situation today? I have a [facility] place to live 05/16/2025 Comments No Sex and Gender Information Value Date Recorded Sex Assigned at Female 05/16/2025 2:33 AM CDT Legal Sex Female 10:03 PM HACKLER DOLL WIGS Gender Identity Transgender Male 05/16/2025 2:33 AM CDT Sexual Orientation Not on file documented as of this encounter Last Filed Vital Signs Vital Sign Reading Time Taken Comments Blood Pressure 125/91 05/16/2025 2:50 PM CDT Pulse 71 05/16/2025 2:50 PM CDT Temperature 36.5 C (97.7 F) 05/16/2025 2:45 PM CDT Respiratory Rate 12 05/16/2025 2:50 PM CDT Oxygen Saturation 97% 05/16/2025 2:50 PM CDT Inhaled Oxygen Concentration - - Weight 82.8 kg (182 lb 8.7 oz) 05/16/2025 8:36 A M CDT Height 167.6 cm (5' 6) 05/16/2025 8:36 AM CDT Body Mass Index 29.48 05/16/2025 8:36 AM CDT documented in this encounter Discharge Summaries * Nithin Hinds P.A.-C., M.S. - 05/17/2025 2:16 PM CDT DISCHARGE SUMMARY BRIEF OVERVIEW Hospital: [facility] Discharge Provider: Melchor Marcelo D.O. Primary Care [...] 05/16/2025 SURGICAL MANAGEMENT SHAFT FRACTURE FEMUR Melchor Mracelo D.O.Torkelson, Jared L, P.A.-C., M.S. [facility] OR DISCHARGE DISPOSITION Home or Self Care [1] OUTPATIENT FOLLOW UP Scheduled Appointments 07/01/2025 9:40 AM COUNT INCLUDES THE [facility] 01 Radiology 07/01/2025 10:30 AM Andrew Hansen, RENÉE, C.N.P., M.S.N. Orthopedic Surgery For appointment details [...] oral medications as the patient tolerated. Physical therapywas consulted for assistance with mobilization. The patient was maintained on appropriate DVT/PE prophylaxis. The remainder of the hospital course was uncomplicated. At the time of dismissal, vitals signs were stable, a general diet was tolerated, pain was controlled with oral agents and all dischar ge criteria were met. DVT prophylaxis: enoxaparin 35 [...] encounter Progress Notes * Gisela Brooks O.T., Octaviano.TKeyla - 05/17/2025 11:17 AM CDT 05/17/25 1117 Reason Therapy Missed Reason Therapy Missed No visit this date (OT Screen) Per PT pt is doing well and has no acute skilled OT needs at this time. OT will plan to sign off atthis time. Please reconsult should change in status occur or concerns arise. Thank you. * Nithin Hinds P.A.-C., M.S. - 05/17/2025 8:52 AM CDT Orthopedic Service: [facility] Hospital Admission Day: 05/16/2025 Hospital Day: [...] Seizure (HCC) Tobacco Use * Aide Moreno Pharm.DArik, R.Ph. - 05/17/2025 7:55 AM CDT Images from the original note were not included. Admission Medication History Note Adherence issues: No concerns Medication list source: Patient and Pharmacy or dispense records Medication related information: N/A Prior to Admission Medications Med List Status: Pharmacy Complete Set By: Aide Moreno Pharm.D., R.Ph. at 05/17/2025 7:55 AM Taking? Last [...] over 168 hr. Electronically signed by: Amairani Moreno PharmKeyla, R.Ph. 05/17/25 7:55 AM CDT documented in this encounter Consult Notes * Renetta Busby P.T., D.P.T. - 05/17/2025 10:12 AM CDT Inpatient Physical Therapy Evaluation Patient: Luli Wharton Room: [facility]/5738- Referring/Attending Provider: Melchor Marcelo D.O. Medical Diagnosis: [...] 24 y.o. adult who was admitted to [facility] [place] [facility] in [place] on 05/16/2025 due to Fracture Lower End Femur Other Closed Initial Right (HCC) [S72.491A] Fracture Femur Shaft Oblique Displaced Closed Initial Right (HCC) [S72.331A] District Manager In Training needed during therapy session? : No. SUBJECTIVE [...] bearing as tolerated right lower extremity Bed Alarm/[place]: No bed alarm or carley required Invasive Lines/Drains: Intravenous line Oxygen Delivery: [...] Cueing: Verbal, for LE placement Outcome Measures: -[facility] Basic Mobility [facility] Basic Mobility (V.2) How much help from [...] Climbing 3-5 steps with a railing?: None -[facility] Basic Mobility (V.2) Raw Score: 24 -[facility] Basic Mobility (V.2) Standardized Score: 57.68 Interpretation: Based on scoring guidelines using the raw score value: *Those going to home had an average score at or above 18 *Those going to facility had an average score at or below 17 Clinicians answer the -[facility] Inpatient Short Form based on observed patient [...] appropriate. Contacted Primary service, Patient's nurse, and lock up worker regarding discharge/safety recommendations and equipment needs [...] Shaft Oblique Displaced Closed Initial Right (HCC) [S72.905A] Prior to hospitalization patient was completing daily [...] FRACTURE FEMUR; Surgeon: Melchor Marcelo D.O.; Location: [facility] OR * Mitra Hart L.I.C.S.W. - 05/17/2025 10:03 AM CDTAssociated Order(s): IP CONSULT TO CARE MANAGEMENT SUBJECTIVE Patient is a 24 y.o. adult who was admitted to [facility] [place] [facility] 05/16/2025 due to Fracture Lower End Femur [...] discharge home today via private vehicle. Lalo MartinS.WArik 05/17/25 [1] Patient Active Problem List Diagnosis [...] Syndrome Seizure (HCC) Tobacco Use * Nithin Hinds P.A.-C., M.S. - 05/16/2025 9:28 AM CDT REASON [...] was originally brought by EMS to the [facility] for further evaluation. X-rays were obtained which showed a transverse midshaft femur fracture. He was placed into traction and was transferred to the [facility] for definitive intervention. 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 Right femur fx, presented in traction) HISTORY OF PRESENT ILLNESS 24-year-old male with medical history as below presenting to the emergency department for a femur fracture. Patient was seen in [place] where he was found to have a femur fracture after lifting uphis significant other and tripping. Patient experienced sudden onset pain and deformity of the right femur. Patient was seen and evaluated at [place] [facility] when in an x-ray confirmed femur fracture, patient was placed in traction and ultimately sent to [place] for further evaluation and management. REVIEW OF [...] Closed Initial Right (HCC) 05/16/2025 Asthma Exacerbation ([facility]) 05/16/2025 Gastroenteritis 05/16/2025 Gender Incongruence Adolescent Or Adult 05/16/2025 Tobacco Use 05/16/2025 Seizure ([facility]) 12/14/2024 Posttraumatic Stress Disorder Brief 05/31/2022 Attention Deficit Disorder Combined Type 02/04/2020 Anxiety Disorder Unspecified 02/04/2020 Cannabis Use Unspecified Uncomplicated 09/08/2019 Depression Major Recurrent Moderate ([facility]) 01/03/2018 Post Concussion Syndrome 09/22/2015 Disruptive Mood Dysregulation Disorder ([facility]) 09/19/2015 SURGICAL HISTORY Surgical History[2] FAMILY HISTORY [...] ELXM Eligible Y TESTING LOCATION Testing Location [facility] ECG: ECG 12 Lead Result Date: 05/16/2025 [...] femur fracture. Patient was transferred to the [place] ED from one of our [facility] sites with a diagnosed femur fracture and in traction. Patientcase discussed with orthopedic surgery on arrival regarding definitive management of femur fracture. Patient planned for OR intervention today. Patient lab work ordered to assess for pre-op abnormalities and to complete work up from [place]. Patient ED labs found to be reassuring, [...] ED Course. Case reviewed with other health care transitions nurse, including Orthopedics. DIAGNOSIS: Final diagnoses: [S72.491A] Fracture Lower End Femur Other Closed Initial Right (HCC) ED DISCHARGE MEDS: ED Prescriptions Medication Sig Dispense Start Date End Date Auth. Provider acetaminophen (TylenoL) 500 mg tablet (Status: Discontinued) Take 2 tablets (1,000 mg total) by mouth every 6 (six) hours for 30 days. 240 tablet 05/17/2025 05/17/2025 Nithin Hinds P.A.-C., M.S. meloxicam (Mobic) 15 mg tablet (Status: [...] needed. 30 tablet 05/17/2025 -- Nithin Hinds P.A.-C., M.S. sennosides-docusate sodium (Senokot-S) [...] Surgeon: Melchor Marcelo D.O.; Location: [facility] Bam Kapoor M.D. 05/19/25 1201 documented in this encounter Plan of Treatment Upcoming Encounters Date Type Department Care Team (Late st Contact Info) Description 07/05/2025 1:00 PM [employer] Appointment Department of Radiology, [facility], in [address] [phone] Andrew Hansen APRN, C.N.P., M.S.N. [address] [place] [phone] Discharge Disposition: Home or Self Care 07/05/2025 1:30 PM [employer] Office Visit Department of Orthopedic Surgery in [address] [phone] Andrew Hansen APRN, C.N.P., M.S.N. [address] [place] [phone] Scheduled Referrals Name Type Priority Associated Diagnoses [...] P.A.-C., M.S. LAB BLOOD ADD-ON Final Result [facility] [address] [place] [address], [facility] [place] [facility] in [place] [address] [place] [address] * (ABNORMAL) Basic Metabolic Panel (05/17/2025 6:48 [...] P.A.-C., M.S. LAB BLOOD ADD-ON Final Result Performing Organization Address City/[facility]/ZIP Co de Phone Number [facility] [address] [place] [phone], [facility] [place] [facility] [place] [address] [place] [address] * FL Fluoro Less Than 1 Hour (05/16/2025 1:23 PM CDT) Narrative Mary HICKEY - 05/16/2025 1:23 PM CDT This exam does not require a radiologist review or interpretation. Please refer to the patient's medical record on this date for clinical details. us Melchor Marcelo D.O. IMJose Martin FLUOROSCOPY PROCEDURES F inal Result Performing Organization Address [facility]/ZIP Co de Phone Number Mary VILLARREALMO * DX Chest Portable 1 View (05/16/2025 [...] No acute findings. us Bam Kapoor M.D. IMJose Martin DIAGNOSTIC IMAGING PROC EDURES Final Result * ECG 12 Lead (05/16/2025 8:45 AM CDT) Ventricular Rate ECG/Min 69 BPM MUSE MO Interval 125 ms MUSE QRSD Interval 92 ms MUSE QT Interval 380 ms MUSE QTC Interval 407 ms MUSE R [place] 81 degrees MUSE T Wave [place] 63 degrees MUSE 05/16/2025 8:45 AM CDT [...] ORDERABLES Final Resul t Performing Organization Address City/[facility]/ZIP Co de Phone Number MUSE NA * Testing Location (05/16/2025 8:38 AM CDT) Testing Location [facility] DEFAULT 05/16/2025 8:59 AM CDT MKTO Blood 05/16/2025 8:38 AM CDT 05/16/2025 8:59 AM CDT us Bam Kapoor M.D. LAB BLOOD BANK TEST ORDERAB LES Final Result Performing Organization Address [facility] Co de Phone Number [facility] [address] [place] [phone], [facility] [place] [facility] [place] [address] [place] [phone] * Type and Screen (with Reflex Antibody [...] BLOOD BANK TEST ORDERAB LES Final Result [facility] [address] [place] [address], [facility] [place] [facility] [place] [address] [place] [address] documented in this encounter Visit Diagnoses Diagnosis Fracture Lower End Femur Other Closed Initial Right (HCC)- Primary Fracture Femur Shaft Oblique Displaced Closed Initial Right (HCC) Fracture Lower End Femur Other Closed Initial Right (HCC) Fracture Femur Shaft Oblique Displaced Closed Initial Right (HCC) Fracture Femur Shaft [...] oral, Every 6 hours, First dose on Sat05/16/25 at 1800 Given 05/17/2025 11:37 AM CDT 1,000 mg Given 05/17/2025 6:28 AM CDT 1,000 mg Given 05/16/2025 11:48 PM CDT 1,000 mg BUPivacaine-EPINEPHrine (PF) 0.5 %-1:200,000 injection (Marcaine w/Epi) As needed, Starting on 05/16/25 at 1322, Intra-Op Given 05/16/2025 1:22 PM CDT 30 mL Right Leg celecoxib capsule 200 mg (CeleBREX) 200 mg, oral, Daily, First dose on 05/17/25 at 0900, Hold for GFR <50ml/min/BSA, renal transplant, solitary kidney etc Given 05/17/2025 8:07 AM CDT 200 mg enoxaparin injection 40 mg (Lovenox) 40 mg, subcutaneous, Daily, First dose on 05/17/25 at 0900 Given 05/17/2025 8:07 AM CDT 40 mg Left Lower Abdomen HYDROmorphone injection 2 mg (Dilaudid) 2 mg, intravenous, Every 1 hour PRN, severe pain or score 7-10 of 10, Starting on 05/16/25 at 1021 Given 05/16/2025 11:26 AM CDT 2 mg Given 05/16/2025 10:28 AM CDT 2 mg Lactated Ringer's 75 mL/hr, intravenous, Continuous, Starting on 05/16/25 at 1530 New Bag 05/17/2025 4:23 AM CDT 75 mL/hr 75 mL/hr New Bag 05/16/2025 3:29 PM CDT 75 mL/hr 75 mL/hr NaCl 0.9% infusion 100 mL/hr, intravenous, [...] Given 05/16/2025 8:31 PM CDT 1 tablet vancomycin injection As needed, Starting on 05/16/25 at 1321, Intra-Op Given 05/16/2025 1:21 PM CDT 1 g Rig ht Leg documented in this encounter Active and Recently Administered Medications Times are shown in CDT. Scheduled Medication Order 05/15/2025 05/16/2025 05/17/2025 acetaminophen tablet 1,000 mg (TylenoL) 1,000 mg, oral, Every 6 hours, First dose on 05/16/25 at 1800 1714 (Given - Provider: Anika Downey RArikN.)9819 (Given - Provider: Madeline Villanueva R.N.) 7855 (Given - Provider: Madeline Villanueva R.N.)1518 (Given - Provider: Isela Quevedo RArikN.) ceFAZolin injection 2 g (Ancef) (COMPLETED) 2 [...] surgical 1529 (Given - Provider: Anika Downey R.N.)2347 (Given - Provider: Madeline Villanueva R.N.) celecoxib [...] 0807 (Given - Provid er: Isela Quevedo RArikNArik) HYDROmorphone injection 0.5 mg (Dilaudid) (COMPLETED) 0.5 mg, intravenous, Once, On Sat05/16/25 at 0924, For 1 dose 0934 (Given - Provider: Daly Melton R.N.) ketorolac injection 15 mg (ToradoL) (COMPLETED) 15 [...] 0935 (New Bag - Provider: Daly Melton R.N.)1125 (Stopped - Provider: Daly Melton R.N.) nicotine [...] at 1022, For 1 dose 1022 (Due)1159 (OCT Hold - Provider: Transfer Provider, Automatic [...] Intra-Op 1322 (Given - Provider: Ben Marcelo D.OArik) calcium carbonate chewable tablet 400 mg of [...] R.N.)1126 (Given - Provider: Daly Melton R.N.)1159 (MAR Hold - Provider: Transfer Provider, Automatic - Reason: Patient not available)1512 (MAR Unhold - Provider: Transfer Provider, Automatic) loratadine [...] 2030 (Not Given - Provider: Madeline Villanueva RArikN. - Reason: Contraindicated - Comment: allergic) oxyCODONE [...] documented as of this encounter Care Teams Children'[employer] Court Magistrate Relationship Specialty Start Date End Date Elsewhere, Pcp PCP - General Internal Medicine 05/16/25 documented as of this encounter
--- OUTSIDE RECORDS SUMMARY | 2025-05-25 13:30 | XMS_ITS | Encounter Summary ---
Author Organization [facility] Address [address] [place] [phone] Care Team Providers Care Marble Mason Name Role Phone Elsewhere, Pcp Primary Care Provider Unavailabl e Reason for Visit * Reason Comments Follow-up Right femur, DOS:04/27 Post-op Right femur, DOS:04/27 * Appointment Request (Routine) - Closed Specialty Diagnoses / Procedures Referred By Allyssa t Referred To Contact Orthopedic Surgery Referral ID Status Reason Start Date Expiration Date Visits Re quested Visits Authorized [id number] Closed 05/25/2025 08/25/2026 1 1 Encounter Details Date Type Department Care Team (Latest Contact Info) Description 05/25/2025 1:30 PM CDT Office Visit Department of Orthopedic Surgery in [place], [place] [address] [place] [phone] Deepthi Zhong P.A.-C., P.A., M.S. [address] [place] [phone] Follow Up Examination Postoperative Visit (Primary Dx) Discharge Disposition: Home or Self Care Social [...] things needed for daily living? No 05/16/2025 [facility] Utilities Answer Date Recorded In the past 12 months has e [employer], gas, oil, or water company threatened to shut off services in your home? No 05/16/2025 Housing Stability Answer Date Recorded What is your living situation today? [facility] to live 05/16/2025 Comments No Sex and Gender Information Value Date Recorded Sex Assigned at Female 05/16/2025 2:33 AM CDT Legal Sex Female 10:03 PM CAR DISPATCHER Gender Identity Transgender Male 05/16/2025 2:33 AM CDT Sexual Orientation Not on file documented as of this encounter Progress Notes * Deepthi Zhong P.A.Vidhi., P.A., M.S. - 05/25/2025 1:30 PM CDT DATE OF VISIT: 05/25/2025 SUBJECTIVE CHIEF COMPLAINT / REASON FOR VISIT Jace is a 24 y.o. adult who presents for postoperative concerns following right femur intramedullary nailing by Dr. Marcelo on 05/16/2025. The patient verbally consented to an audio recording of their visit to assist with the completion of documentation. History of Present Illness Jace is a 24 year old male who presents with severe leg pain and swelling following recent surgery. He is accompanied by a family member. He experiences significant pain and swelling in his leg following recent surgery. The pain is severe, with the skin feeling stretched and causing discomfort. Swelling persists despite elevation and icing. He is currently taking Mobic (meloxicam) for inflammation and Lovenox injections daily for 35 d ays to prevent blood clots. The last dose of oxycodone for pain was taken on Saturday night. He has been taking Tylenol as needed for pain control. He has numbness and tingling in the bottom half of his foot, particularly in his toes. The back of his leg is bruised and swollen. He is experiencing muscle spasms throughout the thigh, which are extremely painful. He has been putting some weight through the right lower extremity, but is primarily relying on crutches to assist with ambulation. OBJECTIVE VITAL SIGNS BP Temp Pulse Resp SpO2 There is no height or weight on file to calculate BMI. PHYSICAL EXAMINATION General Appearance: Patient appears alert, active, comfortable, and in no acute distress. The patient is alert and oriented to person, place, and time and able to follow commands. Skin/Vascular: The right lower extremity does appear well perfused. Dorsalis Pedis pulse is 2+. Moderate swelling throughout the thigh. Moderate ecchymosis throughout the posterior aspect of the leg. Surgical site appearance: Surgical incisions are well healing, no signs concerning for infection. Mild maceration over the central incision on his knee. Musculoskeletal: Right lower extremity: Patient does have muscle spasming with straight leg raise. Patient demonstrates ability to perform active ankle dorsiflexion, plantar flexion, inversion, eversion, as well as flex and extend all toes. Neurologic: Intact sensation to light touch through the deep peroneal, superficial peroneal, sural,saphenous, and tibial nerve distributions of the affected leg. DIAGNOSTICS No results found. LABORATORY: Lab Results Component Value Date WBC 14.0 (H) 05/17/2025 HGB 14.0 05/17/2025 HCT 40.2 05/17/2025 MCV 86.6 05/17/2025 PLT 215 05/17/2025 ASSESSMENT / PLAN 1. Status post right femur IMN 2. Postoperative pain and swelling Jace is a 24 y.o. adult who presents for postoperative concerns following right femur intramedullary nailing by Dr. Marcelo on 05/16/2025. Postoperative pain and swelling He experiences significant postoperative pain and swelling. Pain is exacerbated by muscle spasms. Prescribe oxycodone for analgesia and cyclobenzaprine as a muscle relaxant, to be taken as needed up to three times daily. Advise monitoring for drowsiness with cyclobenzaprine. Apply an ZULEMA wrap or compression sleeve for edema management. Continue with elevation and icing. Incision care Incisions are healing well with no signs of infection. One incision is slightly macerated, likely from bleeding, and a small blister is present with no active drainage or erythema indicating infection. New Aquacel dressings were placed.. Follow-up A follow-up appointment is scheduled for May 31 for re-evaluation and x- rays. Incisions will be assessed, and stitches may be removed if appropriate. Maintain the follow-up appointment on May 31. Instructed patient to contact our clinic with any questions or concerns before his next follow-up appointment. All patient questions were thoroughly answered and he is in agreement with the above plan. documented in this encounter Plan of Treatment Upcoming Encounters Date Type Department Care Team (Late st Contact Info) Description 07/05/2025 1:00 PM CAR DISPATCHER Appointment Department of Radiology, [facility], in [address] [phone] Andrew Hansen APRN, C.N.P., M.S.N. [address] [place] [phone] Discharge Disposition: Home or Self Care 07/05/2025 1:30 PM CAR DISPATCHER Office Visit Department of Orthopedic Surgery in [address] [phone] Andrew Hansen APRN, C.N.P., M.S.N. [address] [place] [phone] documented as of this encounter Visit Diagnoses Diagnosis Follow Up Examination Postoperative Visit- Primary documented in this encounter Care Teams Marble Mason Relationship Specialty Start Date End Date Elsewhere, Pcp PCP - General Internal Medicine 05/16/25 documented as of this encounter
--- OUTSIDE RECORDS SUMMARY | 2025-05-31 12:48 | XMS_ITS | Encounter Summary ---
Author Organization [facility] Address [address] [place] [address] Care Team Providers Care Director Of Events Name Role Phone Elsewhere, Pcp Primary Care Provider Unavailabl e Reason for Referral * Outpatient (Routine) - Closed Specialty Diagnoses / Procedures Referred By Contac t Referred To Contact Diagnoses Fracture Lower End Femur Other Closed Initial Right (HCC) Procedures DX Femur Right 2 Views Nithin Hinds P.A.-C., M.S. [address] [place] [phone] Phone: tel: fax: [facility] Region Referral ID Status Reason Start Date Expiration Date Visits Re quested Visits Authorized [id number] Closed 05/16/2025 08/16/2026 1 1 Reason for Visit * Outpatient (Routine) - Closed Specialty Diagnoses / Procedures Referred By Contac t Referred To Contact Diagnoses Fracture Lower End Femur Other Closed Initial Right (HCC) Procedures DX Femur Right 2 Views Nithin Hinds P.A.-C., M.S. [address] [place] [phone] Phone: tel: fax: [facility] Region Referral ID Status Reason Start Date Expiration Date Visits Re quested Visits Authorized [id number] Closed 05/16/2025 08/16/2026 1 1 Encounter Details Date Type Department Care Team (Latest Contact Info) Description 05/31/2025 12:48 PM CDT - 05/31/2025 2:01 PM CDT Hospital Encounter Department of Radiology, [facility] in [place], [place] [address] [place] [address] Nithin Hinds P.A.-C., M.S. [address] [place] [phone] Fracture Lower End Femur Other Closed Initial Right (HCC) Discharge Disposition: Home [...] things needed for daily living? No 05/16/[address] [facility] Utilities Answer Date Recorded In the past 12 months has e electric, gas, oil, or water company threatened to shut off services in your home? No 05/16/2025 Housing Stability Answer Date Recorded What is your living situation today? I have a [facility] place to live 05/16/2025 Comments No Sex and Gender Information Value Date Recorded Sex Assigned at Female 05/16/2025 2:33 AM CDT Legal Sex Female 10:03 PM ART HISTORY INSTRUCTOR Gender Identity Transgender Male 05/16/2025 2:33 AM CDT Sexual Orientation Not on file documented as of this encounter Medications at Time of Discharge [...] by mouth 2 (two) times a day. cyclobenzaprine (FlexeriL) 10 mg tablet Take 1 tablet (10 mg total) by mouth 3 (three) times a day as needed for muscle spasms for up to 10 days. 30 tablet 05/25/2025 enoxaparin (Lovenox) 40 mg/0.4 mL injection Inject [...] as needed. 30 tablet 05/17/2025 06/11/20 25 oxyCODONE (Roxicodone) 5 mg immediate release tabletIndicatio ns:Prolonged Acute Pain/Traumatic Injury Take 1 tablet (5 mg total) by mouth every 4 (four) hours as needed for severe pain or score 7-10 of 10 Indication: Prolonged Acute Pain/Traumatic Injury. 18 tablet 05/25/2025 06/11/20 25 documented as of this encounter Plan of Treatment Upcoming Encounters Date Type Department Care Team (Late st Contact Info) Description 07/05/2025 1:00 PM ART HISTORY INSTRUCTOR Appointment Department of Radiology, [facility], in [address] [phone] Andrew Hansen APRN, C.N.P., M.S.N. [facility] [place] [phone] Discharge Disposition: Home or Self Care 07/05/2025 1:30 PM ART HISTORY INSTRUCTOR Office Visit Department of Orthopedic Surgery in [place], [place] [address] [place] [phone] Andrew Hanesn APRN, C.N.P., M.S.N. [address] [place] [phone] documented as of this encounter Goals Goal Patient Goal Type Associated Problems Recent Progress Patient-Stated? Author Autogenerat ed Goal Care Plan Autogenerated Problem No Eyal Douglass R.N. documented as of this encounter Procedures Procedure Name Priority Date/Time Associated Diagnosis Comments DX FEMUR RIGHT 2 VIEWS RAD - Routine (most inpatients and all outpatients) 05/31/2025 1:19 PM CDT Fracture Lower End Femur Other Closed Initial Right (HCC) documented in this encounter Results * DX [...] IMG DIAGNOSTIC I MAGING PROCEDURES Final Result documented in this encounter Visit Diagnoses Diagnosis Fracture Lower End Femur Other Closed Initial Right (HCC) documented in this encounter Additional Health Concerns Active Problems Noted Date Diagnosed Date Autogenerated Problem 05/16/2025 documented as of this encounter Care Teams Director Of Events Relationship Specialty Start Date End Date Elsewhere, Pcp PCP - General Internal Medicine 05/16/25 documented as of this encounter
--- OUTSIDE RECORDS SUMMARY | 2025-05-31 13:45 | XMS_ITS | Encounter Summary ---
Author Organization [facility] Address [address] [place] [address] Care Team Providers Care Supervisor In Charge Name Role Phone Elsewhere, Pcp Primary Care Provider Unavailabl e Reason for Referral * Outpatient (Routine) - Authorized Specialty Diagnoses / Procedures Referred By Contac t Referred To Contact Diagnoses Pain Knee Right Procedures DX Femur Right 2 Views Andrew Hansen APRN, C.N.Pawel, M.S.N. [address] [place] [phone] Phone: tel: fax: [facility] Referral ID Status Reason Start Date Expiration Date V isits Requested Visits Authorized [id number] Authorized 05/31/2025 08/31/2026 1 1 * Outpatient (Routine) - Authorized Specialty Diagnoses / Procedures Referred By Contac t Referred To Contact Orthopedic Surgery Andrew Hansen APRN, C.N.Pawel, M.S.N. [address] [place] [phone] Phone: tel: fax: [facility] Region Referral ID Status Reason Start Date Expiration Date V isits Requested Visits Authorized [id number] Authorized 05/31/2025 11/30/2026 1 1 * Outpatient (Routine) - Closed Specialty Diagnoses / Procedures Referred By Contac t Referred To Contact Diagnoses Pain Knee Right Procedures DX Knee Right 4+ Views Andrew Hansen APRN C.N.P., M.S.N. [address] [place] [phone] Phone: tel: fax: [facility] Referral ID Status Reason Start Date Expiration Date Visits Re quested Visits Authorized [id number] Closed 05/31/2025 08/31/2026 1 1 Reason for Visit * Reason Comments Follow-up Fell Saturday and righ t knee made a popping noise and is sore Post-op Fell Saturday and righ t knee made a popping noise and is sore * Outpatient (Routine) - Closed Specialty Diagnoses / Procedures Referred By Allyssa vicente Referred To Contact Orthopedic Surgery Nithin Hinds P.A.-C., M.S. [address] [place] [phone] Phone: tel: fax: Andrew Hansen APRN C.N.P., M.S.N. [address] [place] [phone] Phone: tel: fax: Referral ID Status Reason Start Date Expiration Date Visits Re quested Visits Authorized [id number] Closed 05/16/2025 11/15/2026 1 1 Encounter Details Date Type Department Care Team (Late st Contact Info) Description 05/31/2025 1:45 PM CDT Office Visit Department of Orthopedic Surgery in [address] [phone] Andrew Hansen APRN C.N.P., M.S.N. [address] [place] [phone] Pain Knee Right (Primary Dx) Discharge Disposition: Home or Self [...] things needed for daily living? No 05/16/2025 [facility] Utilities Answer Date Recorded In the past 12 months has [facility] electric, gas, oil, or water company threatened to shut off services in your home? No 05/16/2025 Housing Stability Answer Date Recorded What is your living situation today? [facility] have a [facility] place to live 05/16/2025 Comments No Sex and Gender Information Value Date Recorded Sex Assigned at Female 05/16/2025 2:33 AM CDT Legal Sex Female 10:03 PM OPHTHALMIC PHOTOGRAPHER Gender Identity Transgender Male 05/16/2025 2:33 AM CDT Sexual Orientation Not on file documented as of this encounter Progress Notes * Andrew Hansen, RENÉE, C.N.P., M.S.N. - 05/31/2025 1:45 PM CDT SUBJECTIVE Pain reported: Site 1 Pain Score: 6, Pain Location: Leg, Pain Orientation: Right, (05/31/25 1328 : Padmini Loyola) Site 2 Pain Location 2: Knee, Pain Orientation 2: Right, Pain Score 2: 8, (05/31/25 1328 : Padmini Loyola) CHIEF COMPLAINT / REASON FOR VISIT Luli Wharton is a 25 y.o. adult who presents for follow-up of Follow-up and Post-op of the RightLeg (Fell Saturday and right knee made a popping noise and is sore ) and is under the care of ELSEWHERE, PCP. The patient verbally consented to an audio recording of their visit to assist with the completion of documentation. DATE OF VISIT: 05/31/2025 DATE OF VISIT: 05/31/2025 PROVIDER: Andrew Hansen CNP ATTENDING SURGEON: Melchor Marcelo D.O. PROCEDURE: Right long intramedullary nail, femoral shaft fracture (DOS: 05/16/2025) History of Present Illness Luli Wharton (???Jace?? ) is a 25-year-old adult presenting for postoperative follow-up following right femoral shaft fracture repair on 05/16/[address] Marcelo. Patient reports increased right knee pain and swelling after a fall on Saturday, during which a ???popping?? sound was noted. Pain is ra lara 6/10 at rest and 8/10 with movement. He denies clicking, locking, or deformity but notes mild swelling. No numbness, tingling, or new weakness. Patient has been taking acetaminophen 500 mg (two tablets every 6 hours) for pain, and ran out of oxycodone last night. He has not yet started formal physical therapy but performs home exercises. He remains compliant with postoperative restrictions, ambulates with crutches, and partially weight bears. He continues daily Lovenox injections for DVT prophylaxis; one syringe broke and will be returned to the pharmacy. No incision drainage, redness, or systemic symptoms reported. SURGICAL HISTORY Surgical History[1] HOME MEDICATIONS [email or web address] SOCIAL HISTORY Tobacco history is Tobacco Use History[2]. REVIEW OF SYSTEMS Constitutional: negative for chills, fever, nausea, vomiting. OBJECTIVE VITAL SIGNS BP Temp Pulse Resp SpO2 There is no height or weight on file to calculate BMI. LAB VALUES Lab Results Component Value Date WBC 7.9 06/10/2025 HGB 16.6 06/10/2025 HCT 48.9 06/10/2025 MCV 90.2 06/10/2025 PLT 412 (H) 06/10/2025 A PHYSICAL EXAM Orthopedic Physical Examination GENERAL: Patient appears alert, active, comfortable, and in no acute distress. The patient is alertand oriented to person, place, and time and able to follow commands. does answer all questions appropriately. SKIN/VASCULAR: The right lower extremity does appear well perfused. Dorsalis Pedis pulse is 2+ and capillary refill is <= 2 sec through all toes. Surgical site appearance: Intact. No significant erythema, ecchymosis, or concerns for infection. Calves are soft and nontender. MUSCULOSKELETAL: Attention was drawn to the patients right lower extremity. Patient demonstrates unaffected ability to perform active ankle dorsiflexion, plantar flexion, inversion, eversion, as wellas flex and extend all toes. EHL and FHL intact. Mild swelling and tenderness around right knee. No gross instability or deformity. NEUROLOGIC: Intact sensation to light touch through the deep peroneal, superficial peroneal, sural,saphenous, and tibial nerve distributions of the affected leg. DIAGNOSTIC RESULTS Right Knee X-Ray (05/31/2025): Impression: Small effusion; no acute fracture. Hardware intact. Joint spaces preserved. Right Femur X-Ray (05/31/2025): Impression: Stable postoperative alignment status post ORIF with intramedullary america and locking screws. Early callus formation consistent with expected healing. No new fracture. IMPRESSION/ASSESSMENT/PLAN ASSESSMENT Two-week postoperative follow-up, right femoral shaft fracture (IMN 05/16/2025) Stable alignment and hardware positioning. Incision healing appropriately. Early callus formation evident on imaging. No evidence of infection or hardware complications. Right knee pain following fall Mild effusion, no fracture on imaging. Likely soft tissue irritation or strain; no ligamentous instability noted. PLAN Wound Care: Sutures removed today in clinic; Steri-Strips applied. Clean incision daily with soap and water. Avoid soaking (baths, pools, saunas, hot tubs) for at least 2 weeks. Contact clinic if fever, chills, redness, drainage, or warmth develops. Activity / Weight Bearing: Continue weight bearing as tolerated with assistive device. May begin transition from crutches to cane as tolerated. Continue home exercises; formal PT to begin per protocol for ROM and strengthening. Continue icing and elevation as needed. Medications: Continue acetaminophen as needed for pain. Continue Lovenox injections daily for full 35-day course; replace broken syringe at pharmacy. Refill oxycodone if clinically indicated. Knee Pain Management: Continue conservative measures: rest, ice, compression, elevation (RICE). Avoid high-impact activity or uneven terrain. Use knee brace or elastic wrap for support as needed. Return for reassessment if swelling, locking, or instability develops. Follow-Up: Re-evaluate in 4 weeks with repeat right femur and knee radiographs. Return sooner if new pain, redness, drainage, or fever develops. ADMINISTRATIVE/BILLING: No charge - postoperative global period. SIGNATURE: Andrew Hansen CNP Orthopedic Surgery [1] Past Surgical History: Procedure Laterality Date SURGICAL MANAGEMENT SHAFT FRACTURE FEMUR Right 05/16/2025 Procedure: SURGICAL MANAGEMENT SHAFT FRACTURE FEMUR; Surgeon: Melchor Marcelo D.O.; Location: [facility] [2] Social History Tobacco Use Smoking Status Every Day Types: Cigarettes Smokeless Tobacco Current documented in this encounter Plan of Treatment Upcoming Encounters Date Type Department Care Team (Late st Contact Info) Description 07/05/2025 1:00 PM OPHTHALMIC PHOTOGRAPHER Appointment Department of Radiology, [facility], in [address] [phone] Andrew Hansen APRN, C.N.P., M.S.N. [address] [place] [phone] Discharge Disposition: Home or Self Care 07/05/2025 1:30 PM OPHTHALMIC PHOTOGRAPHER Office Visit Department of Orthopedic Surgery in [place], [place] [address] [place] [phone] Andrew Hansen APRN CArikNArikPArik, M.S.N. [address] [place] [phone] Scheduled Orders Name Type Priority Associated Diagnoses Orde r Schedule DX Femur Right 2 Views Imaging RAD - Routine (most inpatients and all outpatients) Pain Knee Right Expected: 07/01/2025, Expires: 08/31/2026 Scheduled Referrals Name Type Priority Associated Diagnoses Order Schedule Orthopedic Surgery office visit (clinic) Outpatient Referral Routine Expected: 07/01/2025, Expires: 08/31/2026 documented as of this encounter Goals Goal Patient Goal Type Associated Problems Recent Progress Patient-Stated? Author Autogenerat ed Goal Care Plan Autogenerated Problem No Eyal Douglass, RArikNArik documented as of this encounter Results * DX Knee Right 4+ Views (05/31/2025 2:42 PM CDT) Anatomical Region Laterality Modality Lower Extremity, Knee, Muscu loskeletal RST LOS, Musculoskeletal ARZ LOS, Muskuloskeletal FLA LOS Right Digit al Radiography Impressions 05/31/2025 3:26 PM CDT Small effusion, no right knee fracture. Narrative 05/31/2025 3:26 PM CDT EXAM: DX KNEE RIGHT 4+ VIEWS COMPARISON: None FINDINGS: There is a small knee joint effusion. No fracture is identified. Intramedullary america is in place in the distal femur tibia with locking screws present. No fracture is identified. Joint spaces are preserved. Incidentally. Visualized left knee is unremarkable Procedure Note Damian Valdes Jr., M.D. - 05/31/2025 EXAM: DX KNEE RIGHT 4+ VIEWS COMPARISON: None FINDINGS: There is a small knee joint effusion. No fracture is identified.Intramedullary america is in place in the distal femur tibia with lockingscrews present. No fracture is identified. Joint spaces are preserved.Incidentally. Visualized left knee is unremarkable IMPRESSION: Small effusion, no right knee fracture. Andrew Hansen APRN C.N.P., M.S.N. IMG DIAGNOSTI C IMAGING PROCEDURES Final Result documented in this encounter Visit Diagnoses Diagnosis Pain Knee Right- Primary Pain Knee Right documented in this encounter Additional Health Concerns Active Problems Noted Date Diagnosed Date Autogenerated Problem 05/16/2025 documented as of this encounter Care Teams Supervisor In Charge Relationship Specialty Start Date End Date Elsewhere, Pcp PCP - General Internal Medicine 05/16/25 documented as of this encounter
--- OUTSIDE RECORDS SUMMARY | 2025-05-31 14:02 | XMS_ITS | Encounter Summary ---
Author Organization [facility] Address [address] [place] [address] Care Team Providers Care Sheriff Sergeant Name Role Phone Elsewhere, Pcp Primary Care Provider Unavailabl e Reason for Referral * Outpatient (Routine) - Closed Specialty Diagnoses / Procedures Referred By Contac t Referred To Contact Diagnoses Pain Knee Right Procedures DX Knee Right 4+ Views Andrew Hansen APRN C.N.P., M.S.N. [address] [place] [phone] Phone: tel: fax: [facility] Referral ID Status Reason Start Date Expiration Date Visits Re quested Visits Authorized [id number] Closed 05/31/2025 08/31/2026 1 1 Reason for Visit * Outpatient (Routine) - Closed Specialty Diagnoses / Procedures Referred By Contac t Referred To Contact Diagnoses Pain Knee Right Procedures DX Knee Right 4+ Views Andrew Hansen APRN C.N.P., M.S.N. [address] [place] [phone] Phone: tel: fax: [facility] Referral ID Status Reason Start Date Expiration Date Visits Re quested Visits Authorized [id number] Closed 05/31/2025 08/31/2026 1 1 Encounter Details Date Type Department Care Team (Latest Contact Info) Description 05/31/2025 2:02 PM CDT - 05/31/2025 11:59 PM CDT Hospital Encounter Department of Radiology, [facility], in [place], [place] [address] [place] [phone] Andrew Hansen APRN, C.N.P., M.S.N. [address] [place] [phone] Pain Knee Right Discharge Disposition: Home or Self Care Social [...] things needed for daily living? No 05/16/2025 [facility] Utilities Answer Date Recorded In the past 12 months has th e electric, gas, oil, or water company threatened to shut off services in your home? No 05/16/2025 Housing Stability Answer Date Recorded What is your living situation today? I have a [facility] place to live 05/16/2025 Comments No Sex and Gender Information Value Date Recorded Sex Assigned at Female 05/16/2025 2:33 AM CDT Legal Sex Female 10:03 PM PROCESSING TALC AND BORATE SUPERVISOR Gender Identity Transgender Male 05/16/2025 2:33 AM [...] st Contact Info) Description 07/05/2025 1:00 PM PROCESSING TALC AND BORATE SUPERVISOR Appointment Department of Radiology, [facility], in [address] [phone] Andrew Hansen, RENÉE, C.N.P., M.S.N. [facility] [place] [phone] Discharge Disposition: Home or Self Care 07/05/2025 1:30 PM PROCESSING TALC AND BORATE SUPERVISOR Office Visit Department of Orthopedic Surgery in [place], [place] [address] [place] [phone] Andrew Hansen APRN CArikNArikP., M.S.N. [address] [place] [phone] documented as of this encounter Goals Goal Patient Goal Type Associated Problems Recent Progress Patient-Stated? Author Autogenerat ed Goal Care Plan Autogenerated Problem No Eyal Douglass, RArikN. documented as of this encounter Procedures Procedure Name Priority Date/Time Associated Diagnosis Comments DX KNEE RIGHT 4+ VIEWS RAD - Routine (most inpatients and all outpatients) 05/31/2025 2:42 PM CDT Pain Knee Right documented in this encounter Results * DX Knee Right [...] this encounter Visit Diagnoses Diagnosis Pain Knee Right documented in this encounter Additional Health Concerns Active Problems Noted Date Diagnosed Date Autogenerated Problem 05/16/2025 documented as of this encounter Care Teams Sheriff Sergeant Relationship Specialty Start Date End Date Elsewhere, Pcp PCP - General Internal Medicine 05/16/25 documented as of this encounter
--- OUTSIDE RECORDS SUMMARY | 2025-06-11 09:45 | XMS_ITS | Encounter Summary ---
Author Organization [facility] Address [address] [place] [id number] Care Team Providers Care Batch Records Clerk Name Role Phone Elsewhere, Pcp Primary Care Provider Unavailabl e Reason for Visit * Reason Comments Fracture Post-op * Appointment Request (Routine) - Closed Specialty Diagnoses / Procedures Referred By Allyssa vicente Referred To Contact Orthopedic Surgery Referral ID Status Reason Start Date Expiration Date Visits Re quested Visits Authorized [id number] Closed 06/10/2025 09/10/2026 1 1 Encounter Details Date Type Department Care Team (Late st Contact Info) Description 06/11/2025 9:45 AM CDT Office Visit Department of Orthopedic Surgery in [address] [phone] Laith Yu, PChucky.-C., M.S. [address] [place] [phone] Fracture Lower End Femur Other Closed Initial Right (HCC) (Primary Dx) Discharge Disposition: Home or Self [...] things needed for daily living? No 05/16/2025 [facility] Utilities Answer Date Recorded In the past 12 months has th e electric, gas, oil, or water company threatened to shut off services in your home? No 05/16/2025 Housing Stability Answer Date Recorded What is your living situation today? I have a [facility] place to live 05/16/2025 Comments No Sex and Gender Information Value Date Recorded Sex Assigned at Female 05/16/2025 2:33 AM CDT Legal Sex Female 10:03 PM PUBLIC POLICY ASSOCIATE Gender Identity Transgender Male 05/16/2025 2:33 AM CDT Sexual Orientation Not on file documented as of this encounter Last Filed Vital Signs Vital Sign Reading Time Taken Comments Blood Pressure - - Pulse - - Temperature 36 C (96.8 F) 06/11/2025 9:39 AM CDT Respiratory Rate - - Oxygen Saturation - - Inhaled Oxygen Concentration - - Weight - - Height - - Body Mass Index - - documented in this encounter Progress Notes * Laith Yu, Beto.Vidhi., M.S. - 06/11/2025 9:45 AM CDT DATE OF VISIT: 06/11/2025 SUBJECTIVE CHIEF COMPLAINT / REASON FOR VISIT Luli Wharton is a 25 y.o. adult who presents for evaluation of Fracture and Post-op of the RightLeg. The patient verbally consented to an audio recording of their visit to assist with the completion of documentation. History of Present Illness Luli Wharton Jace is a 25 year old male who presents with knee and hip pain post-surgery. He is experiencing significant knee and hip pain three weeks post-surgery. The knee pain is severe,with a specific spot that is particularly painful and associated with swelling. He describes a thumping pain that feels like pulsing. The hip pain is located in the abdominal area and radiates to theback. He experiences shooting pain down the leg. He has been experiencing nausea and vomiting, which he attributes to feeling generally unwell. No recent exposure to illness or flu-like symptoms. He is allergic to Zofran but has not tried Phenergan before. He is currently taking pain medication but is interested in a lower dose due to side effects. No history of reflux, ulcers, or other stomach issues. OBJECTIVE VITAL SIGNS Temp 36 ??C (Temporal) LMP (LMP Unknown) Physical Exam Physical Exam Physical Exam MUSCULOSKELETAL: Tenderness on palpation of the knee. Incisions on the knee appear pristine. General Appearance: Patient appears healthy Skin/Vascular: Lower Extremity:The right lower extremity does appear well perfused. Well healed incision to the thigh and knee. There is not joint effusion present. Compartments soft. Musculoskeletal: Full active range of motion to the right knee and hip. Motors +5/5 distally. Neurologic: Lower Extremity: Intact sensation to light touch through the deep peroneal, superficial peroneal, sural, saphenous, and tibial nerve distributions of the affected leg. ASSESSMENT / PLAN Fracture Femur Shaft Oblique Displaced Closed Initial Right. Surgical Management Shaft Fracture Femur - Right 05/16/2025 Three weeks post-surgery for right femur shaft oblique displaced closed fracture. Reports significant knee and hip pain, expected due to surgical approach through the patellar tendon and associated swelling. Pain is thumping and shooting, common post-operatively. Incisions are pristine with no infection. Recovery is progressing as expected, with typical fluctuations in pain levels for this stage.Explained that recovery is gradual with ups and downs, and improvement is expected over time. - Prescribe high-dose Celebrex for pain management, to be taken with food, with a 30-day supply andone refill - Advise use of ice and elevation to manage swelling - Suggest trying a strap around the knee to manage swelling - Instruct to report if shooting pain worsens for potential muscle relaxer prescription Gastroenteritis Reports frequent vomiting and feeling generally unwell. No recent exposure to sick contacts or flu.Symptoms may be related to medication side effects or stress from recent surgery. Discussed alternative antiemetic options due to allergy to Zofran. - Advise consumption of yogurt or probiotics to support gut health :[id number]} { documented in this encounter Miscellaneous Notes * Addendum Note - Laith Yu P.A.-C., M.S. - 06/11/2025 9:45 AM CDT Addended by: LAITH YU on: 06/11/2025 01:14 PM Modules accepted: Orders documented in this encounter Plan of Treatment Upcoming Encounters Date Type Department Care Team (Late st [facility]) Description 07/05/2025 1:00 PM PUBLIC POLICY ASSOCIATE Appointment Department of Radiology, [facility], in [address] [phone] Andrew Hansen APRN, C.N.P., M.S.N. [address] [place], [place] [phone] Discharge Disposition: Home or Self Care 07/05/2025 1:30 PM PUBLIC POLICY ASSOCIATE Office Visit Department of Orthopedic Surgery in [address] [phone] Andrew Hansen APRN C.N.P., M.S.N. [address] [place] [phone] documented as of this encounter Goals Goal Patient Goal Type Associated Problems Recent Progress Patient-Stated? Author Autogenerat ed Goal Care Plan Autogenerated Problem No yEal Douglass, RArikNArik documented as of this encounter Visit Diagnoses Diagnosis Fracture Lower End Femur Other Closed Initial Right (HCC)- Primary documented in this encounter Additional Health Concerns Active Problems Noted Date Diagnosed Date Autogenerated Problem 05/16/2025 documented as of this encounter Care Teams Batch Records Clerk Relationship Specialty Start Date End Date Elsewhere, Pcp PCP - General Internal Medicine 05/16/25 documented as of this encounter
--- OUTSIDE RECORDS SUMMARY | 2025-06-17 15:42 | XMS_ITS | Encounter Summary ---
Author Organization [facility] Address [address] [place] [address] Care Team Providers Care Process Stripper Name Role Phone Elsewhere, Pcp Primary Care Provider Unavailabl e Reason for Visit * Reason Comments Skin Problem Right femur fx back in april and had a america placed and was seen in [facility] and sent here to see our ortho d/t the site being infected and having increased pain. Encounter Details Date Type Department Care Team ([facility] st Contact Info) Description 06/17/2025 3:42 PM CDT - 06/17/2025 5:14 PM CDT Emergency [facility] Emergency Department [address] [place] [phone] Doris Ocasio, RENÉE, C.N.P., D.N.P. [address] [place] [phone] Pain Leg Right (Primary Dx) Discharge Disposition: Left Against Medical Advice or Discontinued Care Social History Tobacco Use Types Packs/Day [...] things needed for daily living? No 05/16/2025 [facility] Utilities Answer Date Recorded In the past 12 months has [employer], gas, oil, or water company threatened to shut off services in your home? No 05/16/2025 Housing Stability Answer Date Recorded What is your living situation today? I have a [facility] place to live 05/16/2025 Comments No Sex and Gender Information Value Date Recorded Sex Assigned at Female 05/16/2025 2:33 AM CDT Legal Sex Female 10:03 PM INDOOR [employer] CENT[employer] MANAGER Gender Identity Transgender Male 05/16/2025 2:33 AM CDT Sexual Orientation Not on file documented as of this encounter Last Filed Vital Signs Vital Sign Reading Time Taken Comments Blood Pressure 125/82 06/17/2025 4:02 PM CDT Pulse 84 06/17/2025 4:02 PM CDT Temperature 36.4 C (97.5 F) 06/17/2025 4:02 PM CDT Respiratory Rate 16 06/17/2025 4:02 PM CDT Oxygen Saturation 97% 06/17/2025 4:02 PM CDT Inhaled Oxygen Concentration - - Weight 76.7 kg (169 lb 1.5 oz) 06/17/2025 3:59 P M CDT Height - - Body Mass Index 27.31 05/16/2025 3:15 PM CDT documented in this encounter Medications at Time of Discharge albuterol 90 mcg/actuation inhaler Inhale 2 puffs [...] for 35 days. 14 mL 05/18/2025 06/22/20 25 fluticasone propionate (Flonase) 50 mcg/actuation nasal spray [...] every 4 (four) hours as needed. 12/19/2023 meloxicam (Mobic) 15 mg tablet Take 1 tablet (15 mg total) by mouth daily for 30 days. 30 tablet 06/11/2025 07/11/20 25 montelukast (Singulair) 10 mg tablet Take 10 mg by mouth at bedtime. 06/02/2022 promethazine (Phenergan) 12.5 mg tablet Take 1 tablet (12.5 mg total) by mouth every 6 (six) hours as needed for nausea or vomiting for up to 7 days. 28 tablet 06/11/2025 06/18/20 25 sennosides-docu sate sodium (Senokot-S) 8.6-50 mg per tablet Take 1 tablet by mouth at bedtime as needed for constipation. 30 tablet 05/17/2025 sertraline (Zoloft) 100 mg tablet Take 150 mg by mouth daily. 01/28/2020 testosterone cypionate (Depo-Testoster one) 200 mg/mL injection Inject 70 mg intramuscularly over 168 hr. 12/12/2023 documented as of this encounter Progress Notes * Doris Ocasio, RENÉE, C.N.P., D.N.P. - 06/17/2025 4:24 PM CDT The patient verbally consented to an audio recording of their visit to assist with the completion of documentation. Patient was seen in triage SUBJECTIVE CHIEF COMPLAINT/REASON FOR VISIT HISTORY OF PRESENT ILLNESS History of Present Illness Luli Mccormick is a 25 year old male who presents with concerns of a possible infection following a right femur fracture. He was referred by urgent care for evaluation of a possible infection in the right femur. On May 16, he sustained a complete fracture of the right femur after slipping on a wet rug while picking up his girlfriend. He underwent open reduction and internal fixation with a metal america placement. Recently, he has been experiencing symptoms including feeling unwell, a sensation of being hot all the time, and a fever of 99.8??F a few days ago. He feels unwell, with a sensation of being hot all the time, and had a fever of 99.8??F a few days ago. He also mentions episodes of vomiting and diarrhea. He sought initial evaluation at an urgent care facility, where he was advised that the surgical site appeared infected and required further medical attention. Medical History[1] Surgical History[2] OBJECTIVE BP 125/82 Pulse 84 Temp 36.4 ??C Resp 16 Wt 76.7 kg SpO2 97% BMI 27.31 kg/m?? PHYSICAL EXAMINATION Constitutional General: He is not in acute distress. Appearance: He is not toxic-appearing. Cardiovascular Rate and Rhythm: Normal rate. Pulmonary Effort: Pulmonary effort is normal. Musculoskeletal General: Normal range of motion. Comments: Diffuse tenderness noted to right knee with light palpation Skin General: Skin is warm and dry. Comments: Surgical site at right knee mildly erythematous with a scant amount of purulent drainage Neurological Mental Status: He is alert. ASSESSMENT / PLAN Assessment & Plan Suspected femur fracture infection Possible infection at right femur fracture site post open reduction and internal fixation. Differential includes surgical site infection. - Order blood cultures. - Order inflammatory markers. - Order leg x-ray. [1] Past Medical History: Diagnosis Date Asthma NOS Brain Injury NOS Depression Posttraumatic Stress Disorder Prolonged [2] Past Surgical History: Procedure Laterality Date SURGICAL MANAGEMENT SHAFT FRACTURE FEMUR Right 05/16/2025 Procedure: SURGICAL MANAGEMENT SHAFT FRACTURE FEMUR; Surgeon: Melchor Marcelo D.O.; Location: [facility] Doris Ocasio APRN, Jackie.N.PArik, D.N.P. 06/17/25 1625 documented in this encounter Plan of Treatment Upcoming Encounters Date Type Department Care Team (Late st Contact Info) Description 07/05/2025 1:00 PM [employer]ORTS CENTRE MANAGER Appointment Department of Radiology, [facility], in [address] [phone] Andrew Hansen APRN, C.N.P., M.S.N. [address] [place] [phone] Discharge Disposition: Home or Self Care 07/05/2025 1:30 PM INDOOR SPORTS CENTRE MANAGER Office Visit Department of Orthopedic Surgery in [address] [phone] Andrew Hansen APRN C.N.P., M.S.N. [address] [place] [phone] Scheduled Orders Name Type Priority Associated Diagnoses Orde r Schedule Bacteria / Tegan Culture, Blood #1 Microbiology STAT STAT for 1 Occ urrences starting 06/17/2025 until 06/17/2025 Bacteria / Tegan Culture, Blood #2 Microbiology STAT STAT for 1 Occ urrences starting 06/17/2025 until 06/17/2025 documented as of this encounter Goals Goal Patient Goal Type Associated Problems Recent Progress Patient-Stated? Author Autogenerat ed Goal Care Plan Autogenerated Problem No Eyal Douglass R.N. documented as of this encounter Procedures Procedure Name Priority Date/Time Associated Diagnosis Comments LACTATE FOR SEPSIS WITH REFLEX STAT 06/17/2025 5:12 PM CDT CBC WITH DIFFERENTIAL, B STAT 06/17/2025 5:12 PM CDT C-REACTIVE PROTEIN (CRP), S/P STAT 06/17/2025 5:12 PM CDT BASIC METABOLIC PANEL, S/P STAT 06/17/2025 5:12 PM CDT DX FEMUR RIGHT 2 VIEWS RAD - Semiurgent (Fast; most ED patients; some inpatients) 06/17/2025 4:34 PM CDT documented in this encounter Results * (ABNORMAL) CRP (C-Reactive Protein) (06/17/2025 5:12 PM CDT) C-Reactive Protein (CRP), P 6.0(H) <5.0 mg/L 06/17/2025 5:55 PM CDT MKTO Blood (Blood, Venous) 06/17/2025 5:12 PM CDT 06/17/2025 5:18 PM CDT Doris Ocasio APRN, C.N.P., D.N.P. LAB BLOOD ADD -ON Final Result [facility] [address] [place] [address], [facility] MKTO [facility] [employer] [address] [place] [address] * Lactate for Sepsis with Reflex (06/17/2025 5:12 PM CDT) Lactate, B 1.3 0.5 - 2.2 mmol/L 06/17/2025 5:35 PM CDT MKTO Blood (Blood, Venous) 06/17/2025 5:12 PM CDT 06/17/2025 5:18 PM CDT us Doris Ocasio APRN, C.N.P., D.N.P. LAB BLOOD NON ADD-ON Final Result [facility] [address] [place] [address], [facility] MKTO [facility] [employer] [address] [place] [address] * Basic Metabolic Panel (06/17/2025 5:12 PM CDT) Potassium, P 3.9 3.6 - 5.2 mmol/L 06/17/2025 5:55 PM CDT MKTO Sodium, P 142 135 - 145 mmol/L 06/17/2025 5:55 PM CDT MKTO Chloride, P 107 98 - 107 mmol/L 06/17/2025 5:55 PM CDT MKTO Bicarbonate, P 26 22 - 29 mmol/L 06/17/2025 5:55 PM CDT MK[facility] Anion Gap, P 9 7 - 15 06/17/2025 5:55 PM CDT [facility] BUN (Blood Urea Nitrogen), P 11 6 - 21 mg/dL 06/17/2025 5:55 PM CDT [facility]TO Creatinine 0.94 0.59 - 1.04 mg/dL 06/17/2025 5:55 PM CDT MKTO Estimated GFR (eGFR) 86 >=60 mL/min/BSA 06/17/2025 5:55 PM CDT MKTO Comment: Estimated GFR calculated using the 2020 CKD_EPI creatinine equation. Calcium, Total, P 9.9 8.6 - 10.0 mg/dL 06/17/2025 5:55 PM CDT MKTO Glucose, P 75 70 - 140 mg/dL 06/17/2025 5:55 PM CDT MKTO Blood (Blood, Venous) 06/17/2025 5:12 PM CDT 06/17/2025 5:18 PM CDT us Doris Ocasio APRN C.N.P., D.N.P. LAB BLOOD ADD -ON Final Result [facility] [address] [place] [address], [facility] MKTO [facility] [employer] [address] [place] [address] * (ABNORMAL) CBC with Differential, Blood (06/17/2025 5:12 PM CDT) Hemoglobin 16.7(H) 11.6 - 15.0 g/dL 06/17/2025 5:24 PM CDT MKTO Hematocrit 49.0(H) 35.5 - 44.9 % 06/17/2025 5:24 PM CDT MKTO Erythrocytes 5.57(H) 3.92 - 5.13 x10(12)/L 06/17/2025 5:24 PM CDT [facility] MCV 88.0 78.2 - 97.9 fL 06/17/2025 5:24 PM CDT MKTO RBC Distrib Width 12.7 12.2 - 16.1 % 06/17/2025 5:24 PM CDT [facility] Platelet Count 298 157 - 371 x10(9)/L 06/17/2025 5:24 PM CDT [facility]TO Leukocytes 10.4(H) 3.4 - 9.6 x10(9)/L 06/17/2025 5:24 PM CDT [facility]TO Neutrophils 6.07 1.56 - 6.45 x10(9)/L 06/17/2025 5:24 PM CDT MKTO Lymphocytes 2.77 0.95 - 3.07 x10(9)/L 06/17/2025 5:24 PM CDT MKTO Monocytes 0.85(H) 0.26 - 0.81 x10(9)/L 06/17/2025 5:24 PM CDT MKTO Eosinophils 0.68(H) 0.03 - 0.48 x10(9)/L 06/17/2025 5:24 PM CDT MKTO Basophils 0.07 0.01 - 0.08 x10(9)/L 06/17/2025 5:24 PM CDT MKTO Blood (Blood, Venous) 06/17/2025 5:12 PM CDT 06/17/2025 5:18 PM CDT us Doris Ocasio APRN, C.N.P., D.N.P. LAB BLOOD ADD -ON Final Result [facility] [address] [place] [address], [facility] MKTO [facility] [employer] [address] [place] [address] * DX Femur Right 2 Views (06/17/2025 4:34 PM CDT) Anatomical Region Laterality Modality Lower Extremity, Femur, Musc uloskeletal RST LOS, Musculoskeletal ARZ LOS, Muskuloskeletal FLA LOS Right Digit al Radiography Impressions 06/17/2025 5:01 PM CDT Postoperative findings of the right femur, retrograde intramedullary america with proximal distal interlocking screws. Hardware appears stable. Femoral diaphyseal fracture remains visible. 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 However, current findings may also be sequela of superimposed heterotopic ossification/myositis ossificans. CT or MRI imaging of the right femur with metal artifact reduction technique recommended. Periosteal findings on crosstable lateral projection imaging appear similar relative to 05/31/2025. Right hip and right knee appear within normal limits. Narrative 06/17/2025 5:01 PM CDT EXAM: DX FEMUR RIGHT 2 VIEWS COMPARISON: 05/31/2025, 05/16/2025. Procedure Note Edilson Kowalski M.D. - 06/17/2025 EXAM: DX FEMUR RIGHT 2 VIEWS COMPARISON: 05/31/2025, 05/16/2025. IMPRESSION: Postoperative findings of the right femur, retrograde intramedullary rodwith proximal distal interlocking screws. Hardware appears stable. Femoral diaphyseal fracture remains visible. Persistent regionalheterotopic ossification and/or myositis ossificans with interval subtlecortical irregularity and/or osteolysis along medial fracture line on APprojection imaging concerning for possible infection, particularly givensmooth cortical surface on 05/31/2025 AP imaging. However, current findingsmay also be sequela of superimposed heterotopic ossification/myositisossificans. CT or MRI imaging of the right femur with metal artifact reductiontechnique recommended. Periosteal findings on crosstable lateral projection imaging appearsimilar relative to 05/31/2025. Right hip and right knee appear within normal limits. Doris Ocasio APRN, C.N.P., D.N.P. IMG DIAGNOSTI C IMAGING PROCEDURES Final Result documented in this encounter Visit Diagnoses Diagnosis Pain Leg Right- Primary documented in this encounter Additional Health Concerns Active Problems Noted Date Diagnosed Date Autogenerated Problem 05/16/2025 documented as of this encounter Care Teams Process Stripper Relationship Specialty Start Date End Date Elsewhere, Pcp PCP - General Internal Medicine 05/16/25 documented as of this encounter
--- OUTSIDE RECORDS SUMMARY | 2025-06-18 00:10 | XMS_ITS | Encounter Summary ---
Author Organization [facility] Address [address] [place] [address] Care Team Providers Care Pbx Technician Name Role Phone Elsewhere, Pcp Primary Care Provider Unavailabl e Reason for Visit * Reason Onset Date Comments Post-op Problem 06/09/2025 Encounter Details Date Type Department Care Team (Latest Contact Info) Description 06/09/2025 Clinical Communication Department of Orthopedic Surgery and Sports Medicine at [facility] in [place], [place] [address] [facility] [address] [place] [phone] Andrew Hansen, RENÉE, C.N.P., M.S.N. [address] [place] [phone] Post-op Problem Social History Tobacco Use Types Packs/Day Years [...] things needed for daily living? No 05/16/2025 [facility] Utilities Answer Date Recorded In the past 12 months has th e electric, gas, oil, or water company threatened to shut off services in your home? No 05/16/2025 Housing Stability Answer Date Recorded What is your living situation today? I have a [facility] place to live 05/16/2025 Comments No Sex and Gender Information Value Date Recorded Sex Assigned at Female 05/16/2025 2:33 AM CDT Legal Sex Female 10:03 PM [employer] Gender Identity Transgender Male 05/16/2025 2:33 AM CDT Sexual Orientation Not on file documented as of this encounter Miscellaneous Notes * Telephone Encounter - Rachana Osman R.N. - 06/10/2025 10:37 AM CDT Spoke with patient who states she is generally not feeling very well. Slight temp and has an area along her incision that looks like pus. Patient is offered an appointment with Nithin Hinds PA-C for this afternoon. She is currently scheduled to see a primary care physician today [place]. She is going to have this physician address, and will call back if they feel she needs to be seen by orthopedics. documented in this encounter Plan of Treatment Upcoming Encounters Date Type Department Care Team (Late st Contact Info) Description 07/05/2025 1:00 PM [employer] Appointment Department of Radiology, [facility], in [address] [phone] Andrew Hansen, RENÉE, C.N.P., M.S.N. [address] [place] [phone] Discharge Disposition: Home or Self Care 07/05/2025 1:30 PM [employer] Office Visit Department of Orthopedic Surgery in [place], [place] [address] [place] [phone] Andrew Hansen APRN, C.N.P., M.S.N. [address] [place] [phone] documented as of this encounter Goals Goal Patient Goal Type Associated Problems Recent Progress Patient-Stated? Author Autogenerat ed Goal Care Plan Autogenerated Problem No Eyal Douglass, R.N. documented as of this encounter Visit Diagnoses Not on filedocumented in this encounter Additional Health Concerns Active Problems Noted Date Diagnosed Date Autogenerated Problem 05/16/2025 documented as of this encounter Care Teams Pbx Technician Relationship Specialty Start Date End Date Elsewhere, Pcp PCP - General Internal Medicine 05/16/25 documented as of this encounter
--- OUTSIDE RECORDS SUMMARY | 2025-06-18 00:10 | XMS_ITS | Encounter Summary ---
Author Organization [facility] Address [address] [place] [address] Care Team Providers Care Finish Patcher Name Role Phone Elsewhere, Pcp Primary Care Provider Unavailabl e Reason for Visit * Reason Comments Med Change Request Encounter Details Date Type Department Care Team (Late st Contact Info) Description 06/11/2025 Refill Department of Orthopedic Surgery in [place], [place] [address] [place] [phone] Nithin Hinds P.A.-C., M.S. [address] [place] [phone] Med Change Request Social History Tobacco Use Types Packs/Day Years [...] things needed for daily living? No 05/16/2025 [facility] Utilities Answer Date Recorded In the past 12 months has e [employer], gas, oil, or water company threatened to shut off services in your home? No 05/16/2025 Housing Stability Answer Date Recorded What is your living situation today? 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 [address] [place] [phone] Discharge Disposition: Home or Self Care 07/05/2025 1:30 PM FOUNTAIN WORKER Office Visit Department of Orthopedic Surgery in [address] [phone] Andrew Hansen APRN, C.N.P., M.S.N. [address] [place] [phone] documented as of this encounter Goals Goal Patient Goal Type Associated Problems Recent Progress Patient-Stated? Author Autogenerat ed Goal Care Plan Autogenerated Problem No Eyal Douglass R.N. documented as of this encounter Visit Diagnoses Not on filedocumented in this encounter Additional Health Concerns Active Problems Noted Date Diagnosed Date Autogenerated Problem 05/16/2025 documented as of this encounter Care Teams Finish Patcher Relationship Specialty Start Date End Date Elsewhere, Pcp PCP - General Internal Medicine 05/16/25 documented as of this encounter
--- OUTSIDE RECORDS SUMMARY | 2025-06-18 00:11 | XMS_ITS | Encounter Summary ---
Author Organization [facility] Address [address] [place] [address] Care Team Providers Care Dock Pumper Name Role Phone Elsewhere, Pcp Primary Care Provider Unavailabl e Reason for Visit * Reason Onset Date Comments Med Refill 05/24/2025 Encounter Details Date Type Department Care Team (Late st Contact Info) Description 05/24/2025 Refill Department of Orthopedic Surgery in [address] [phone] Nithin Hinds, PPatricia-Jackie., M.S. [address] [place] [phone] Med Refill Social History Tobacco Use Types Packs/Day Years [...] things needed for daily living? No 05/16/2025 [facility] Utilities Answer Date Recorded In the past 12 months has [facility], gas, oil, or water [employer] threatened to shut off services in your home? No 05/16/2025 Housing Stability Answer Date Recorded What is your living situation today? I have a [facility] place to live 05/16/2025 Comments No Sex and Gender Information Value Date Recorded Sex Assigned at Female 05/16/2025 2:33 AM CDT Legal Sex Female 10:03 PM NATURAL RESOURCE ECONOMIST Gender Identity Transgender Male 05/16/2025 2:33 AM CDT Sexual Orientation Not on file documented as of this encounter Plan of Treatment Upcoming Encounters Date Type Department Care Team (Late st Contact Info) Description 07/05/2025 1:00 PM NATURAL RESOURCE ECONOMIST Appointment Department of Radiology, [facility], in [address] [phone] Andrew Hansen APRN, C.N.P., M.S.N. [address] [place] [phone] Discharge Disposition: Home or Self Care 07/05/2025 1:30 PM NATURAL RESOURCE ECONOMIST Office Visit Department of Orthopedic Surgery in [address] [phone] Andrew Hansen APRN, C.N.P., M.S.N. [address] [place] [phone] documented as of this encounter Goals Goal Patient Goal Type Associated Problems Recent Progress Patient-Stated? Author Autogenerat ed Goal Care Plan Autogenerated Problem No Eyal Douglass, R.N. documented as of this encounter Visit Diagnoses Not on filedocumented in this encounter Additional Health Concerns Active Problems Noted Date Diagnosed Date Autogenerated Problem 05/16/2025 documented as of this encounter Care Teams Dock Pumper Relationship Specialty Start Date End Date Elsewhere, Pcp PCP - General Internal Medicine 05/16/25 documented as of this encounter
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
--- OUTSIDE RECORDS SUMMARY | 2025-06-18 00:14 | XMS_ITS | Clinical Summary ---
Author Organization [facility] Address [address] [place] [address] Care Team Providers Care Microbiology Lab Analyst Name Role Phone Elsewhere, Pcp Primary Care Provider Unavailabl e Source Comments Patient records contain information from all sites at [facility]. For routine questions regarding patient records, call [phone] during business hours, M-F 8:00 AM - 5:00 PM Central Time. Record requests for emergency care only can be directed to [phone] at any time.[facility] Allergies Active Allergy Reactions Criticality Noted Date Comments Ondansetron Nausea And Vomiting, GI intolerance 02/09/2020 Causes paradoxical increased vomiting. Medications albuterol 90 mcg/actuation inhaler Inhale 2 puffs 4 (four) times a day as needed. Active ARIPiprazole (Abilify) 20 mg tablet Take 20 mg by mouth daily. Active amphetamine-d extroamphetam ine (AdderalL XR) 10 mg 24 hr capsule Take 10 mg by mouth every morning. Active fluticasone propionate (Flonase) 50 mcg/actuation nasal spray Administer 1 spray into each nostril daily. Active ipratropium-a lbuteroL (DuoNeb) 0.5-2.5 mg/3 mL nebulizer solution Inhale 3 mL every 4 (four) hours as needed. Active montelukast (Singulair) 10 mg tablet Take 10 mg by mouth at bedtime. Active sertraline (Zoloft) 100 mg tablet Take 150 mg by mouth daily. Active testosterone cypionate (Depo-Testost erone) 200 mg/mL injection Inject 70 mg intramuscularly over 168 hr. 024 Active busPIRone (BuSpar) 15 mg tablet Take 15 mg by mouth 2 (two) times a day. Active amphetamine-d extroamphetam ine (AdderalL XR) 5 mg 24 hr capsule Take 5 mg by mouth every evening. Active ipratropium-a lbuteroL (Combivent Respimat) 20-100 mcg/actuation inhaler Inhale 1 puff 3 (three) times a day. 023 Active hydrOXYzine (Atarax) 25 mg tablet Take 50 mg by mouth at bedtime as needed (sleep). Active budesonide-fo rmoteroL (Symbicort) 160-4.5 mcg/actuation inhaler Inhale 2 puffs 2 (two) times a day as needed. Active acetaminophen (TylenoL) 500 mg tablet Take 2 tablets (1,000 mg total) by mouth every 6 (six) hours for 30 days. 240 tablet Active enoxaparin (Lovenox) 40 mg/0.4 mL injection Inject 0.4 mL (40 mg total) under the skin daily for 35 days. 14 mL 2024 Active sennosides-do cusate sodium (Senokot-S) 8.6-50 mg per tablet Take 1 tablet by mouth at bedtime as needed for constipation. 30 tablet Active cyclobenzapri ne (FlexeriL) 10 mg tablet Take 1 tablet (10 mg total) by mouth 3 (three) times a day as needed for muscle spasms for up to 10 days. 30 tablet Active promethazine (Phenergan) 12.5 mg tablet Take 1 tablet (12.5 mg total) by mouth every 6 (six) hours as needed for nausea or vomiting for up to 7 days. 28 tablet 025 2024 Active meloxicam (Mobic) 15 mg tablet Take 1 tablet (15 mg total) by mouth daily for 30 days. 30 tablet 2024 Active meloxicam (Mobic) 15 mg tablet Take 1 tablet (15 mg total) by mouth daily for 30 days. 30 tablet 025 2024 Discontinued(R eorder) oxyCODONE (Roxicodone) 5 mg immediate release tabletIndicat ions:Prolonge d Acute Pain/Traumati c Injury Take 1 tablet (5 mg total) by mouth every 4 (four) hours as needed for pain Indication: Prolonged Acute Pain/Traumatic Injury. Take 1 tab for pain 4-6, 2 tab for pain 7-10 every 4 hours as needed. 30 tablet 025 2024 Discontinued oxyCODONE (Roxicodone) 5 mg immediate release tabletIndicat ions:Prolonge d Acute Pain/Traumati c Injury Take 1 tablet (5 mg total) by mouth every 4 (four) hours as needed for severe pain or score 7-10 of 10 Indication: Prolonged Acute Pain/Traumatic Injury. 18 tablet 2024 Discontinued celecoxib (CeleBREX) 200 mg capsule Take 1 capsule (200 mg total) by mouth 2 (two) times a day. 60 capsule 025 2024 Discontinued Active Problems Problem Noted Date Diagnosed Date Fracture Femur Shaft Oblique Displaced Closed In itial Right 05/16/2025 Fracture Lower End Femur Other Closed Initial Ri ght 05/16/2025 Asthma Exacerbation 05/16/2025 Overview (05/16/2025): Had asthma problems the beginning July. Put on a 12 day taper. Asthma got worse couple days after finishing the taper. Continues on home inhalers as prescribed. Follows with pulmonology. No definite recent respiratory illness. Gastroenteritis 05/16/2025 Gender Incongruence Adolescent Or Adult 05/16/20 25 Overview (05/16/2025): female to male Tobacco Use 05/16/2025 Overview (05/16/2025): Advised to avoid vaping due to potential for respiratory problems Seizure 12/14/2024 Overview (05/16/2025): Hx of non-epileptic seizure-like events Posttraumatic Stress Disorder Brief 05/31/2022 Attention Deficit Disorder Combined Type 020 Anxiety Disorder Unspecified 02/04/2020 Cannabis Use Unspecified Uncomplicated 0 Depression Major Recurrent Moderate 01/03/2018 Post Concussion Syndrome 09/22/2015 Disruptive Mood Dysregulation Disorder 6 Encounters Date Type Department Care Team Description 06/17/2025 3:42 PM CDT - 06/17/2025 5:14 PM CDT Emergency [facility] Emergency Department [address] [place] [phone] Doris Ocasio APRN, C.N.P., D.N.P. Pain Leg Right (Primary Dx) Discharge Disposition: Left Against Medical Advice or Discontinued Care 06/11/2025 9:45 AM CDT Office Visit Department [place] [phone] Nithin Hinds P.A.-C., M.S. Fracture Lower End Femur Other Closed Initial Right (HCC) (Primary Dx) Discharge Disposition: Home or Self Care 06/11/2025 Refill Department of Orthopedic Surgery in [address] [phone] Nithin Hinds P.A.-C., M.S. Med Change Request 06/09/2025 Clinical Communication Department of Orthopedic Surgery and Sports Medicine at [facility] in [place], [place] [address] [place] [phone] Andrew Hansen APRN, C.N.P., M.S.N. Post-op Problem 05/31/2025 2:02 PM CDT - 05/31/2025 11:59 PM CDT Hospital Encounter Department of Radiology, [facility], in [address] [phone] Andrew Hansen APRN C.N.P., M.S.N. Pain Knee Right Discharge Disposition: Home or Self Care 05/31/2025 1:45 PM CDT Office Visit Department of Orthopedic Surgery in [address] [phone] Andrew Hansen APRN C.N.P., M.S.N. Pain Knee Right (Primary Dx) Discharge Disposition: Home or Self Care 05/31/2025 12:48 PM CDT - 05/31/2025 2:01 PM CDT Hospital Encounter Department of Radiology, [facility], in [address] [phone] Nithin Hinds P.A.-C., M.S. Fracture Lower End Femur Other Closed Initial Right (HCC) Discharge Disposition: Home or Self Care 05/25/2025 1:30 PM CDT Office Visit Department of Orthopedic Surgery in [address] [phone] Deepthi Zhong P.A.-C., P.A., M.S. Follow Up Examination Postoperative Visit (Primary Dx) Discharge Disposition: Home or Self Care 05/24/2025 Refill Department of Orthopedic Surgery in [address] [phone] Nithin Hinds P.A.-C., M.S. Med Refill 05/16/2025 12:15 PM CDT - 05/16/2025 2:52 PM CDT Surgery Out[facility] in [address] [phone] Melchor Marcelo D.O. SURGICAL MANAGEMENT SHAFT FRACTURE FEMUR 05/16/2025 11:59 AM CDT Anesthesia Event Outpatient Procedure Center in [address] [phone] Annmarie Spencer M.D. 05/16/2025 8:16 AM CDT - 05/17/2025 2:16 PM CDT Hospital Encounter [facility], [facility], Fifth Floor [address] [place] [phone] Bam Kapoor M.D. Melchor Marcelo D.O. Fracture Lower End Femur Other Closed Initial Right (HCC) (Primary Dx); Fracture Femur Shaft Oblique Displaced Closed Initial Right (HCC) Discharge Disposition: Home or Self Care 05/16/2025 1:25 AM CDT - 05/16/2025 7:23 AM CDT Emergency [place] [facility] [address] [place] [phone] Leobardo Jane M.D. Fracture Femur Epiphysis Displaced Closed Initial Right (HCC) (Primary Dx) Discharge Disposition: Acute Care Hospital from Last 3 Months Social History Tobacco Use Types Packs/Day Years [...] things needed for daily living? No 05/16/2025 [facility] Utilities Answer Date Recorded In the past 12 months has e electric, gas, oil, or water [employer] threatened to shut off services in your home? No 05/16/2025 Housing Stability Answer Date Recorded What is your living situation today? I have a [facility] place to live 05/16/2025 Comments No Sex and Gender Information Value Date Recorded Sex Assigned at Female 05/16/2025 2:33 AM CDT Legal Sex Female 10:03 PM INSIDE STEWARD/STEWARDESS Gender Identity Transgender Male 05/16/2025 2:33 AM CDT Sexual Orientation Not on file Last Filed Vital Signs Vital Sign Reading [...] oz) 06/17/2025 3:59 P M CDT Height 167.6 cm (5' 5.98) 05/16/2025 3:15 PM CD T Body Mass Index 27.31 05/16/2025 3:15 PM CDT Plan of Treatment Upcoming Encounters Date Type Department Care Team (Late st Contact Info) Description 07/05/2025 1:00 PM INSIDE STEWARD/STEWARDESS Appointment Department of Radiology, [facility], in [address] [phone] Andrew Hansen APRN, C.N.P., M.S.N. [address] [place] [phone] Discharge Disposition: Home or Self Care 07/05/2025 1:30 PM INSIDE STEWARD/STEWARDESS Office Visit Department of Orthopedic Surgery in [address] [phone] Andrew Hansen APRN, C.N.P., M.S.N. [address] [place] [phone] Health Maintenance Due Date Last Done Comments Depression Monitoring (PHQ-9) 2000 HIV Screening 2000 Hepatitis C Screening 2000 Tobacco Cessation counseling 2000 Pneumococcal vaccine (0-49 y ears) (2 of 2 - PCV) 09/03/2021 09/03/2020, 08/28/2001, 2000, Additional history exists Depression Monitoring (PHQ-9 for quality tracking) 08/26/2024 COVID-19 Vaccine ( - 2024-2 6 season) 2025 12/14/2024, 07/20/2022, 01/12/2021, Additional history exists Asthma Action Plan 05/16/2025 Asthma Control Test Questionnaire 05/16/2025 Asthma Management/Exacerbati on Questionnaire (AMQ/AEQ) 05/16/2025 Glucose Test for Med Monitoring 06/17/2026 06/17/2025, 05/17/2025, 05/16/2025, Additional history exists DTaP,Tdap,and Td Vaccines (8 - Td or Tdap) 06/24/2026 06/24/2016, 11/14/2011, 06/15/2005, Additional history exists Cervical/Vaginal Cancer Screening 04/21/2028 025 Hepatitis B Vaccines Completed 08/28/2001, 08/28/2001, 2000, Additional history exists IPV Vaccines Completed 06/15/2005, 2000, 2000, Additional history exists Hepatitis A Vaccines Completed 11/14/2011, 07/07/20 10 HPV Vaccines Completed 12/14/2024, 08/26, 07/17/2013 Influenza Vaccine Completed 06/10/2025, , 07/20/2022, Additional history exists Goals Goal Patient Goal Type Associated Problems Recent Progress Patient-Stated? Author Autogenerat ed Goal Care Plan Autogenerated Problem No Eyal Douglass [employer] Implanted Type Area Imaging Analyst Device Identifier Shelf Expiration Date Model / Serial / Lot Nl Fem Rfn 5d 9x380 - Sn/A - [id number] Implanted:Qty: 1 on 05/16/2025 by Melchor Marcelo D.O. at [facility] Hardware e.g. pins/screws/ rods Right: Femur Depuy Synthes 07/25/2026 04.233.93 8S / N/A / [id number] [facility] Crystal Xl25 5.0x68 - Sn/A - [id number] Implanted:Qty: 1 on 05/16/2025 by Melchor Marcelo D.O. at [facility] Hardware e.g. pins/screws/ rods Right: Femur [employer]uy [employer]ynthes 08/25/2031 04.045.36 8S / N/A / [id number] [facility] Crystal Xl25 5.0x48 - Sn/A - [id number] Implanted:Qty: 1 on 05/16/2025 by Melchor Marcelo D.O. at [facility] Hardware e.g. pins/screws/ rods Right: Femur [employer]uy Synthes 05/25/2034 04.045.34 8S / N/A / [id number] [facility] Crystal Xl25 5.0x74 - Sn/A - [id number] Implanted:Qty: 1 on 05/16/2025 by Melchor Marcelo D.O. at [facility] Hardware e.g. pins/screws/ rods Right: Femur [employer]uy [employer]ynthes 07/25/2034 04.045.37 4S / N/A / [id number] [facility] Lck 5.0x34 - Sn/A - [id number] Implanted:Qty: 1 on 05/16/2025 by Melchor Marcelo D.O. at [facility] Hardware e.g. pins/screws/ rods Right: Femur [employer]ynthes 02/22/2034 04.045.03 4S / N/A / [id number] [facility] Lck 5.0x34 - Sn/A - [id number] Implanted:Qty: 1 on 05/16/2025 by Melchor Marcelo D.O. at [facility] Hardware e.g. pins/screws/ rods Right: Femur [employer] 02/22/2034 04.045.03 4S / N/A / [id number] [employer] Nl Retrograde Rfn 0 - Sn/A - [id number] Implanted:Qty: 1 on 05/16/2025 by Melchor Marcelo D.O. at [facility] Hardware e.g. pins/screws/ rods Right: Femur [employer]uy [employer]ynthes 01/23/2035 04.233.00 0S / N/A / [id number] Procedures Procedure Name Priority Date/Time Associated Diagnosis Comments C-REACTIVE PROTEIN (CRP), S/P STAT 06/17/2025 5:12 PM CDT LACTATE FOR SEPSIS WITH REFLEX STAT 06/17/2025 5:12 PM CDT BASIC METABOLIC PANEL, S/P STAT 06/17/2025 5:12 PM CDT CBC WITH DIFFERENTIAL, B STAT 06/17/2025 5:12 PM CDT DX FEMUR RIGHT 2 VIEWS RAD - Semiurgent (Fast; most ED patients; some inpatients) 06/17/2025 4:34 PM CDT DX KNEE RIGHT 4+ VIEWS RAD - Routine (most inpatients and all outpatients) 05/31/2025 2:42 PM CDT Pain Knee Right DX FEMUR RIGHT 2 VIEWS RAD - Routine (most inpatients and all outpatients) 05/31/2025 1:19 PM CDT Fracture Lower End Femur Other Closed Initial Right (HCC) CBC WITHOUT DIFFERENTIAL, B Routine 05/17/2025 6:48 [...] and all outpatients) 05/16/2025 1:23 PM CDT LDA ANE ENDOTRACHEAL AIRWAY Routine 05/16/2025 12:08 PM CDT SURGICAL MANAGEMENT SHAFT FRACTURE FEMUR 05/16/2025 11:59 AM CDT Fracture Femur Shaft Oblique Displaced Closed Initial Right (HCC) DX CHEST PORTABLE 1 VIEW RAD - Semiurgent (Fast; most ED patients; some inpatients) 05/16/2025 8:51 AM CDT ECG STAT 05/16/2025 8:45 AM CDT TESTING LOCATION Routine 05/16/2025 8:38 AM CDT TYPE AND SCREEN Routine 05/16/2025 8:38 AM CDT URINALYSIS WITH MICROSCOPIC IF INDICATED, U STAT 05/16/2025 6:47 AM CDT BACTERIAL CULTURE, AEROBIC + SUSC, URINE STAT 05/16/2025 6:47 AM CDT DX FEMUR RIGHT 2 VIEWS RAD - Semiurgent (Fast; most ED patients; some inpatients) 05/16/2025 2:29 AM CDT SPLINT APPLICATION Routine 05/16/2025 2: 08 AM CDT HUMAN CHORIONIC GONADOTROPIN (HCG), HERMANN, STAT 05/16/2025 1:46 AM CDT ETHANOL, S STAT 05/16/2025 1:46 AM CDT LACTATE, B/P STAT 05/16/2025 1:46 AM CDT PROTHROMBIN TIME (PT), P STAT 05/16/2025 1:46 AM CDT BASIC METABOLIC PANEL, S/P STAT 05/16/2025 1:46 AM CDT CBC WITH DIFFERENTIAL, B STAT 05/16/2025 1:46 AM CDT DX FEMUR RIGHT 2 VIEWS RAD - Semiurgent (Fast; most ED patients; some inpatients) 05/16/2025 1:43 AM CDT from Last 3 Months Results * Lactate for Sepsis with Reflex (06/17/2025 5:12 PM CDT) Lactate, B 1.3 0.5 - 2.2 mmol/L 06/17/2025 5:35 PM CDT MKTO Blood (Blood, Venous) 06/17/2025 5:12 PM CDT 06/17/2025 5:18 PM CDT Doris Ocasio APRN, C.N.P., D.N.P. LAB BLOOD NON ADD-ON Final Result [facility] [place] [address], [facility] MKTO [facility] [place] [address] * (ABNORMAL) CBC with Differential, Blood (06/17/2025 5:12 PM CDT) Only the most recent of2 resultswithin the time period is included. Hemoglobin 16.7(H) 11.6 - 15.0 g/dL 06/17/2025 [...] D.N.P. LAB BLOOD ADD -ON Final Result [facility] [address] [place] [address], [facility] [place] [address] * (ABNORMAL) CRP (C-Reactive Protein) (06/17/2025 5:12 PM CDT) C-Reactive Protein (CRP), P 6.0(H) <5.0 mg/L 06/17/2025 5:55 PM CDT MKTO Blood (Blood, Venous) 06/17/2025 5:12 PM CDT 06/17/2025 5:18 PM CDT us Doris Ocasio APRN, C.N.P., D.N.P. LAB BLOOD ADD -ON Final Result [facility] [address] [place] [address], [facility] MKTO [facility] [place] [address] [place] [address] * Basic Metabolic Panel (06/17/2025 5:12 PM CDT) Only the most recent of3 resultswithin the time period is included. Potassium, P 3.9 3.6 - 5.2 mmol/L [...] CDT 06/17/2025 5:18 PM CDT Doris Ocasio APRN C.N.P., D.N.P. LAB BLOOD ADD -ON Final Result [facility] [address] [place] [address], [facility] MKTO [facility] [place] [address] [place] [address] * DX Femur Right 2 Views (06/17/2025 4:34 PM CDT) Only the most recent of4 resultswithin the time period is included. Anatomical Region Laterality Modality Lower Extremity, Femur, [...] normal limits. Doris Ocasio APRN, C.N.P., D.N.P. [facility] IMAGING PROCEDURES Final Result * DX Knee Right 4+ Views (05/31/2025 [...] effusion, no right knee fracture. Andrew Hansen APRN, C.N.P., M.S.N. [facility] IMAGING PROCEDURES Final Result * (ABNORMAL) CBC without [...] P.A.-C., M.S. LAB BLOOD ADD-ON Final Result [facility] [address] [place] [address], [facility] MKTO [facility] [place] [address] * FL Fluoro Less Than 1 Hour (05/16/2025 1:23 PM CDT) Narrative 9000 LOS SWMN - 05/16/2025 1:23 PM CDT This exam does not require a radiologist review or interpretation. Please refer to the patient's medical record on this date for clinical details. us Melchor GONZALES FLUOROSCOPY PROCEDURES F inal Result 9000 LOS SWUT * LDA ANE ENDOTRACHEAL AIRWAY (05/16/2025 12:08 PM CDT) Narrative Mavis Haas APRN, SUKHWINDER, D.N.P. - 05/16/2025 12:08 PM CDT Mavis Haas APRN, SUKHWINDER, D.N.P. 05/16/2025 12:16 PM Airway Date/Time: 05/16/2025 12:08 PM Performed by: Mavis Haas APRN, SUKHWINDER, D.N.P. Authorized by: Annmarie Spencer M.D. Patient [...] Procedure outcome: successful Notable Events: no complications us Annmarie Spencer M.D. ANESTHESIA ORDERABLES Fin al Result * DX Chest Portable 1 View (05/16/2025 [...] acute bony abnormality. IMPRESSION: No acute findings. Bam Kapoor M.D. [facility] IMAGING PROC EDURES Final Result * ECG 12 Lead (05/16/2025 8:45 AM CDT) Ventricular Rate ECG/Min 69 BPM MUSE NM Interval 125 ms MUSE QRSD Interval 92 ms MUSE QT Interval 380 ms MUSE QTC Interval 407 ms MUSE R [place] 81 degrees MUSE T Wave [place] 63 degrees MUSE 05/16/2025 8:45 AM CDT [...] Kapoor M.D. ECG ORDERABLES Final Resul t MUSE NA * Testing Location (05/16/2025 8:38 AM CDT) Testing Location [facility] DEFAULT 05/16/2025 8:59 AM CDT MKTO Blood 05/16/2025 8:38 AM CDT 05/16/2025 8:59 AM CDT us Bam Kapoor M.D. LAB BLOOD BANK TEST ORDERAB LES Final Result [facility] [address] [place] [address], [facility] MKTO [facility] [place] [address] [place] [address] * Type and Screen (with Reflex Antibody [...] BLOOD BANK TEST ORDERAB LES Final Result [facility] [address] [place] [address], [facility] MKTO [facility] [place] [address] [place] [address] * (ABNORMAL) Urinalysis with Microscopic if Indicated: [...] 8.0 05/16/2025 6:58 AM CDT NPRG Specific Fox 1.020 1.001 - 1.035 05/16/2025 6:58 AM CDT NPRG Urobilinogen 0.2 0.2 - 1.0 mg/dL 05/16/2025 6:58 AM CDT NPRG Urine (Urine, Straight Catheter) 05/16/2025 6:47 AM CDT 05/16/2025 6:51 AM CDT Leobardo Jane M.D. LAB URINE ORDERABLES Fin al Result Performing Organization Address City/[facility]/ZIP Co de Phone Number [facility] [address] [place] [address], [facility] NPRG [facility] [address] [place] [address] * Bacterial Culture, Aerobic + Susceptibility, Urine (05/16/2025 6:47 AM CDT) Urine Culture No growth after 1 day of incubation. 05/17/2025 11:46 AM CDT [facility] Urine (Urine, Straight Catheter) 05/16/2025 6:47 AM CDT 05/16/2025 4:27 PM CDT Comment:Specimen Source Site : Urine Leobardo Jane M.D. LAB MICROBIOLOGY - GENER AL ORDERABLES Final Result Performing Organization Address [facility] Co de Phone Number [facility] [address] [place] [address], [facility] MKTO [facility] [place] [address] [place] [address] * Splint Application (05/16/2025 2:08 AM CDT) [...] injury: unable to assess Leobardo Jane M.D. PROCEDURE/MINOR SURGICAL ORDERABLES Final Result * (ABNORMAL) Ethanol Level, Serum (05/16/2025 1:46 AM CDT) Ethanol, P 49(H) <10 mg/dL 05/16/2025 2:4 6 AM CDT NPRG Blood (Blood, Venous) 05/16/2025 1:46 AM CDT 05/16/2025 1:50 AM CDT Leobardo Jane M.D. LAB BLOOD NON ADD-ON Fin al Result [facility] [address] [place] [address], [facility] [address] [place] [address] * Prothrombin Time (PT) (05/16/2025 1:46 AM [...] Edited Result - Final Performing Organization Address [facility] Co de Phone Number [facility] [address] [place] [address], [address] [address] * hCG (Human Chorionic Gonadotropin), Quantitative, (05/16/2025 1:46 AM CDT) HCG, Quantitative, , P <1.0 <5 IU/L 05/16/2025 2:51 AM CDT NPRG Blood (Blood, Venous) 05/16/2025 1:46 AM CDT 05/16/2025 2:32 AM CDT Leobardo Jane M.D. LAB BLOOD ADD-ON Final R esult Performing Organization Address [facility] Co de Phone Number [facility] [address] [place] [address], [address] [address] * (ABNORMAL) Lactate (05/16/2025 1:46 AM CDT) Lactate, P 3.3(H) 0.5 - 2.2 mmol/L 05/16/2025 2:43 AM CDT NPRG Blood (Blood, Venous) 05/16/2025 1:46 AM CDT 05/16/2025 1:50 AM CDT us Leobardo Jane M.D. LAB BLOOD NON ADD-ON Fin al Result [facility] [address] [place] [address], [place] NPRG [facility] [address] [place] [address] from Last 3 Months Additional Health Concerns Active Problems Noted Date Diagnosed Date Autogenerated Problem 05/16/2025 Insurance MEDICARE [place] Advance Directives For more information, please contact: [phone] * Full Code (Latest Code Status on File) Date Activated Date Inactivated Comments 05/16/2025 3:04 PM 05/17/2025 4:21 PM Question Answer Comments Full Code: Discussed * Full Code Date Activated Date Inactivated Comments 05/16/2025 2:19 PM 05/16/2025 3:04 PM Question Answer Comments Full Code: Discussed Care Teams Microbiology Lab Analyst Relationship Specialty Start Date End Date Elsewhere, Pcp PCP - General Internal Medicine 05/16/25
--- OUTSIDE RECORDS SUMMARY | 2025-06-18 00:19 | XMS_ITS | Encounter Summary ---
Author Organization [facility] Address [address], [place] [address] Care Team Providers Care Mail Opener Name Role Phone Shanthi Delgadillo MD Primary Care Provider Reason for Visit * Reason Comments Refill testosterone enantha te (DELATESTRYL) 200 MG/ML injection Encounter Details Date Type Department Care Team (Late st Contact Info) Description 06/09/2025 Refill [facility] [address] [place] [address] Marlon Santos MD [address] [place] [address] Refill (testosterone enanthate (DELATESTRYL) 200 MG/ML injection) Social History Tobacco Use Types Packs/Day Years [...] AM CDT Legal Sex Female 5:23 PM MANAGER RELIABILITY Gender Identity Male 04/11/2020 10:11 AM CDT Sexual Orientation Straight 04/11/2020 10 :11 AM CDT documented as of this encounter Nursing Notes * Raven Guy - 06/10/2025 9:08 AM CDT testosterone enanthate (DELATESTRYL) 200 MG/ML injection Medication started: 09/03/2020 Last ordered by MARLON SANTOS: 01/04/2025 (157 days ago) QTY: 13, Refills: 0, Sig: inject 0.35ml (70mg) subcutaneously weekly. strength: 200 mg/ml (changed but equivalent) -> Medication cannot be delegated. Last qualifying visit: 02/08/2025 (with MARLON SANTOS) Next scheduled visit: None [facility] Embedded Refills, Reference: [id number], 06/10/2025 9:08:01 AM CDT, Pool: RefillCentralized Services - Primary Care ([id number]) * Raven Guy - 06/10/2025 9:08 AM CDT No Careplan note found by [employer]. documented in this encounter Plan of Treatment Not on file documented as of this encounter Visit Diagnoses Diagnosis Gender dysphoria documented in this encounter Care Teams Mail Opener Relationship Specialty Start Date End Date Shanthi Delgadillo MD [address] [place] [address] PCP - General Obstetrics Gynecology 02/12/25 documented as of this encounter
--- OUTSIDE RECORDS SUMMARY | 2025-06-18 00:19 | XMS_ITS | Clinical Summary ---
Author Organization [facility] Address [address] [address] Care Team Providers Care Ticket Worker Name Role Phone Shanthi Delgadillo MD Primary Care Provider [phone] Source Comments You are receiving this document as you are listed as the primary care provider,follow-up provider, or the patient has been referred to you for consultation.This is in compliance with the Medicare and[facility] EHR Incentive Program,which states Providers who transition their patient to another setting of careor provider of care or refers their patient to another provider of care shouldprovide summary care record for each transition of care or referral. [facility] Allergies Active Allergy Reactions Criticality Noted Date Comments Ondansetron Nausea And Vomiting 04/11/2020 Medications sertraline (ZOLOFT) 50 MG tablet Take 1 Tablet (50 mg) by mouth daily. Active sertraline (ZOLOFT) 100 MG tablet Take 1 Tablet (100 mg) by mouth daily. 01/28/20 20 Active traZODone (DESYREL) 150 MG tablet Take 1 Tablet (150 mg) by mouth daily. 04/09/20 20 Active sharps containerIndica tions:Gender dysphoria Use to dispose of needles once a week. 1 Each 05/18/20 20 Active ARIPiprazole (ABILIFY) 5 MG tablet 09/01/19 21 Active ALBUterol sulfate HFA 108 (90 Base) MCG/ACT inhaler INHALE 1 TO 2 PUFFS EVERY 4 HOURS NEEDED FOR WHEEZING OR SHORTNESS OF BREATH. 18 Each 09/11/19 22 Active montelukast (SINGULAIR) 10 MG tablet Take 1 Tablet (10 mg) by mouth daily. 06/02/20 Active methylphenidate (RITALIN LA) 30 MG 24 hour release capsule Take 1 Capsule (30 mg) by mouth every morning. 07/06/20 22 Active fluticasone propionate (FLONASE) 50 MCG/ACT nasal solution Place into both nostrils. 08/01/20 Active COMBIVENT RESPIMAT 20-100 MCG/ACT inhaler 1 Puff three times a day. 07/21/20 23 Active SYMBICORT 160-4.5 MCG/ACT inhaler Inhale 2 Puffs two times a day. 08/06/20 23 Active testosterone cypionate (DEPO-TESTOSTER ONE) 200 MG/ML injectionIndica tions:Gender dysphoria Inject 0.35 mL (70 mg) intramuscularly once every week. 5 mL 12/12/19 24 Active ipratropium-alb uterol (DUONEB) 0.5-2.5 (3) mg/3ml nebulizer solutionIndicat ions:Moderate persistent asthma with acute exacerbation (HRC) INHALE 3 ML EVERY 4 HOURS NEEDED FOR WHEEZING 120 mL 4 12/19/19 24 Active NEEDLE, DISP, 18 G (MONOJECT HYPO [...] as instructed once a week. 25 Each 01/16/20 25 Active Syringe, Disposable, (BD TUBERCULIN SYRINGE) 1 MLIndications:G joy dysphoria TO USE WITH WEEKLY TESTOSTERONE INJECTIONS. 25 Each 01/16/20 25 Active Syringe, Disposable, (B-D SYRINGE SLIP TIP 1CC) 1 MLIndications:G joy dysphoria TO USE WITH WEEKLY TESTOSTERONE INJECTIONS. 13 Each 3 04/21/20 25 Active testosterone enanthate (DELATESTRYL) 200 MG/ML injectionIndica tions:Gender dysphoria INJECT 0.35ML (70MG) SUBCUTANEOUSLY WEEKLY Strength: 200 mg/mL 13 mL 06/10/20 25 Active testosterone enanthate (DELATESTRYL) 200 MG/ML injectionIndica tions:Gender dysphoria INJECT 0.35ML (70MG) SUBCUTANEOUSLY WEEKLY. STRENGTH: 200 MG/ML 13 mL 01/05/20 25 025 Discontin ued(*Med change OR same med OR reorder, new dose/dire ctions) Active Problems Problem Noted Date Diagnosed Date PTSD (post-traumatic stress disorder) 05/31/2022 Tobacco dependence 09/19/2020 Gender dysphoria 04/16/2020 TBI (traumatic brain injury) 04/11/2020 Overview (04/11/2020): x3 Attention deficit hyperactiv ity disorder (ADHD), combined type, moderate 02/04/2020 Anxiety disorder 02/04/2020 Moderate episode of recurrent major depressive d isorder 02/04/2020 Episodic mood disorder 09/04/2018 Encounters Date Type Department Care Team Description 06/09/2025 Refill [facility] [address] [place] [address] Mika Santos MD Refill (testosterone enanthate (DELATESTRYL) 200 MG/ML injection) 04/20/2025 Refill [facility] [address] [place] [address] Mika Santos MD Refill (B-D SYRINGE SLIP TIP 1CC 1 ML [Pharmacy Med Name: BD TUBERCULIN 1 ML SYRINGE]) from Last 3 Months Immunizations Immunization Administration Dates Next Due 4vHPV (Gardasil) 07/17/2013 9vHPV (Gardasil 9) 09/08/2019,07/17/2013 DTaP 06/15/2005, 5,08/28/2001,08/28,2000,2000,2000 ,2000,2000,2000 Flu Vac (3+ yrs) 06/03/2010,06/25/2009, 8 HepA Ped/Adol (1-18 yrs) 11/14/2011,07/07/2010 HepA, Unspecified Formulation 11/14/2011, 010 HepB Ped/Adol (0-18 yrs) 08/28/2001,2000,1 09/29/1999 HepB, Unspecified Formulation 08/28/2001, 001,2000 Hib (ActHIB) 08/28/2001,2000,2000 Hib/HBV 08/28/2001,2000,2000 IPV (Polio) 06/15/2005, 5,03/26/2001,03/26,2000,2000,2000 ,2000 Influenza IIV4 (Quadrivalent ) 0.5mL ([id number]) 07/20/2022,09/03/2020,09/04/2018(Defer red: Patient Refused),07/01/2018,07/01/2018, 017,05/30/2017,06/30/2016,06/30/2016,1 09/16/2012,07/17/2013,06/03/2010,2008,06/16/2008 Influenza, Unspecified Formulation 06/30,06/03/2010,06/25/2009,06/16 MCV4 (Menactra) 05/30/2017,05/30/2017,11/14/2011 MMR 06/15/2005, 5,05/28/2001,05/28 Meningococcal MCV4, Unspecif ied Formulation 11/14/2011 PCV20 ([id number]) 07/20/2022 PPSV23 (Pneumovax) 09/03/2020 Pfizer Bivalent 12+ [...] AM CDT Legal Sex Female 5:23 PM LEAD WELDER Gender Identity Male 04/11/2020 10:11 AM CDT Sexual Orientation Straight 04/11/2020 10 :11 AM CDT Last Filed Vital Signs Vital Sign Reading Time Taken Comments Blood Pressure 112/72 08/08/2023 9:43 AM LEAD WELDER Pulse 70 08/08/2023 9:43 AM LEAD WELDER Temperature 36.6 C (97.8 F) 08/08/2023 9:43 AM LEAD WELDER Respiratory Rate 16 06/15/2021 11:32 AM CDT Oxygen Saturation 91% 06/15/2021 12:00 PM CDT Inhaled Oxygen Concentration - - Weight 84.8 kg (187 lb) 08/08/2023 9:43 AM LEAD WELDER Height 167 cm (5' 5.75) 08/28/2022 9:06 AM LEAD WELDER Body Mass Index 30.41 08/28/2022 9:06 AM LEAD WELDER Plan of Treatment Health Maintenance Due Date [...] Address Personal/Family Self [address] [place] [address] [facility] MEDICARE [facility] * Guarantor: Luli Wharton Account Type Relation to Patient Date of Phone Billing Address Personal/Family Self [address] [place] [address] [facility] MEDICARE [facility] Advance Directives * Full Code (Latest Code Status on File) Date Activated Date Inactivated Comments 06/15/2021 11:11 AM 06/15/2021 3:25 PM * Full Code Date Activated Date Inactivated Comments 09/03/2018 11:50 PM 09/05/2018 6:26 PM Care Teams Ticket Worker Relationship Specialty Start Date End Date Shanthi Delgadillo MD [address] [place] [address] PCP - General Obstetrics Gynecology 02/12/25
[2025-06-18 00:21] VITALS: BP 129/79; PULSE 74; RESP 16; TEMP 36.7; O2SAT 97; BMI 27.1
--- NOTE | 2025-06-18 04:04 | ED.GENADULT ---
HPI - General Adult General Chief complaint: Extremity Pain/Injury, Lower Stated complaint: right knee pain, possible infection Time Seen by Provider: 06/18/25 01:18 Source: patient Mode of arrival: ambulatory Limitations: no limitations History of Present Illness HPI narrative: 25-year-old patient is with a history of femur fracture in late April, just under 5 weeks ago. Fracture was from a fall. Reports that they underwent surgical repair at [facility]. 3 days of slight redness to the superior pole of the incision over the right knee, can express some cloudy drainage. It sounds as though they called their clinic and were advised to be seen. Report that they waited in the ED at [place] for 3 hours and left prior to being seen. Waited several hours and now present to our emergency department in the wee hours. No history of DVT or PE, no difficulty moving the joint. No swelling. He is currently be treated with Lovenox preventative [place] per their report. No fevers or other systemic symptoms of infection. No history of MRSA or resistant infections. No other areas of concern today. Past medical history most notable for mental health issues. Does come to emergency department frequently. Medications reviewed, listed is accurate per patient. ROS is notable for the skin and joint issues as above, otherwise denies times 12 systems. Related Data Home Medications ?Medication ?Instructions ?Recorded ?Confirmed montelukast 10 mg tablet 10 mg PO DAILY 04/02/22 06/17/25 testosterone enanthate 200 mg/mL 80 mg subcut Q7D 04/02/22 06/17/25 intramuscular oil ibuprofen 08/15/24 06/17/25 aripiprazole 15 mg tablet 15 mg PO DAILY 08/16/24 06/17/25 dextroamphetamine-amphetamine 10 1 tab PO HS 08/16/24 06/17/25 mg tablet Held on 09/30/24. Instructions: Doctor's Order dextroamphetamine-amphetamine 15 1 tab PO DAILY 08/16/24 06/17/25 mg tablet Held on 09/30/24. Instructions: Doctor's Order dextroamphetamine-amphetamine ER 1 cap PO BID 08/16/24 06/17/25 10 mg 24hr capsule,extend release ipratropium 20 mcg-albuterol 100 1 puff inhalation TID 08/16/24 06/17/25 mcg/actuation mist for inhalation (Combivent Respimat) levalbuterol tartrate 45 2 puff inhalation Q4H PRN wheezing 08/16/24 06/17/25 mcg/actuation aerosol inhaler sertraline 100 mg tablet 150 mg PO DAILY 08/16/24 06/17/25 trazodone 150 mg tablet 150 mg PO QPM 08/28/24 06/17/25 Held on 05/05/25. Instructions: Doctor's Order Previous Rx's ?Medication ?Instructions ?Recorded ipratropium 0.5 mg-albuterol 3 mg 3 ml inhalation Q6H PRN #90 mL 06/09/22 (2.5 mg base)/3 mL nebulization soln albuterol sulfate 90 mcg/actuation 2 puff inhalation Q4-6H PRN 09/08/23 aerosol inhaler shortness of breath or wheezing #8.5 grams doxycycline hyclate 100 mg tablet 100 mg PO BID #14 tabs 06/18/25 Allergies Allergy/AdvReac Type Severity Reaction Status Date / Time ondansetron (From Zofran) AdvReac Mild Vomiting Verified 06/17/25 14:[facility] Medical History Hypokalemia ?E87.6 - Hypokalemia (ICD-10) Vapes nicotine containing substance ?Z72.0 - Tobacco use (ICD-10) Moderate episode of recurrent major depressive disorder ?F33.1 - Major depressive disorder, recurrent, moderate (ICD-10) Fracture of occipital bone with loss of consciousness ?S02.119A - Unspecified fracture of occiput, initial encounter for closed fracture (ICD-10) ?S06.9X9A - Unspecified intracranial injury with loss of consciousness of unspecified duration, initial encounter (ICD-10) Disruptive mood dysregulation disorder ?F34.81 - Disruptive mood dysregulation disorder (ICD-10) Suicidal ideation (10/04/15) ?R45.851 - Suicidal ideations (ICD-10) 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) ?F06.30 - Mood disorder due to known physiological condition, unspecified (ICD-10) ?S06.9XAS - Unspecified intracranial injury with loss of consciousness status unknown, sequela (ICD-10) Colitis due to Clostridium difficile ?A04.72 - Enterocolitis due to Clostridium difficile, not specified as recurrent (ICD-10) ADHD ?F90.9 - Attention-deficit hyperactivity disorder, unspecified type (ICD-10) Depression ?F32.A - Depression, unspecified (ICD-10) Anxiety ?F41.9 - Anxiety disorder, unspecified (ICD-10) Breast removal, prophylactic ?Z40.01 - Encounter for prophylactic removal of breast (ICD-10) Traumatic brain injury ?S06.9XAA - Unspecified intracranial injury with loss of consciousness status unknown, initial encounter (ICD-10) Surgical History S/P mastectomy, bilateral (~04/2021) ?Z90.13 - Acquired absence of bilateral breasts and nipples (ICD-10) [place] teeth removed ?K08.409 - Partial loss of teeth, unspecified cause, unspecified class (ICD-10) Family History Maternal Grandmother Breast cancer Depression Heart disease Paternal Grandfather Heart disease Thyroid cancer Social History Narrative: Unemployed. Quit smoking cigarettes in 2017, Vapes. Rare alcohol use. Frequent marijuana use. Admitted to nurse that he has done fentanyl and crushed and snorted his Adderall in the past week. What is your current living situation?: I presently have a place to live Problems where you live: no known problems Problems where you live details: n/a In the past 12 months, utilities in danger of being shut off: no In past 12 months, lack of transportation kept you from medical appts, meetings, work, or getting things needed for daily living: no In the past 12 mos, have been you worried that your food would run out before you had money to buy more?: never true In the past 12 mos, the food you bought just didn't last and you didn't have money to buy more?: never true Highest level of school completed/degree received: high school graduate Smoking Status: Current some day smoker What tobacco products do you use: cigarettes Years smoked: 11 Do you use any of these nicotine containing products: E-Cigarettes and Vaping Products Nicotine containing products detail: Frequently Vapes Second hand tobacco smoke exposure: Yes How often do you have a drink containing alcohol: monthly or less How many standard drinks containing alcohol do you have on a typical day: 1 or 2 How often do you have six or more drinks on one occasion: Never AUDIT-C Alcohol total score: 1 Non-prescribed substance use: marijuana (any form) Non-prescribed substance use details: medical marijuana card Caffeine: No (Rarely) How often does anyone, including family, friends and others, physically hurt you: never How often does anyone, including family, friends and others, insult or talk down to you: rarely How often does anyone, including family, friends and others, threaten you with harm: never How often does anyone, including family, friends and others, scream or curse at you: rarely Do you think of yourself as: straight/heterosexual Gender Identity: male service: No Health Related Social Needs: Other personal risk factors, not elsewhere classified (Z91.89) Exam Const: Vital Signs, click to edit/add: Vital Signs - 24 hr 06/18/25 00:21 Temperature 98.0 F Pulse Rate [Pulse Oximeter] 74 Respiratory Rate 16 Blood Pressure [Ri ght Upper Arm] 129/79 Pulse Oximetry 97 Oxygen Delivery Me thod Room Air Documenting provider has reviewed patient's vital signs: yes Common normals: no apparent distress General appearance: cooperative Other: Slightly anxious and restless but answers questions appropriately. HENMT: Common normals: normocephalic Head and scalp: normocephalic Mouth: oral and palatal mucosa normal Eye: General eye: normal appearance of both eyes Resp: Common normals: normal respiratory effort Effort & inspection: able to speak in complete sentences Extremity: Other: Midline surgical scar on right knee consistent with reported surgery. A very scant amount of cloudy fluid can be expressed from the very superior aspect of the incision. There is no underlying fluctuant area or fluid collection. There is a dime-sized area of redness at the medial superior aspect of the incision. No effusion, no warmth. Completely normal range of motion with no signs of effusion. No tenderness to palpation of popliteal fossa. Ankle and foot appear normal. No swelling. Thigh normal. Opposite left leg grossly normal. Psych: Other: Mildly anxious but answers questions appropriately. Fair insight. Course Course ED Course: 25-year-old patient 4 and half weeks out from surgical repair of femur fracture with questionable inflammation verses early infection of surgical incision. There does not seem to be signs of underlying septic joint, osteomyelitis, injury, DVT or other abnormality. Counseled patient on thoughts and findings. The scant amount of cloudy fluid is collected for culture, will likely be negative. I do think it is reasonable to start patient on doxycycline for possible mild skin infection. Reviewed signs and symptoms of septic joint, severe infection that would warrant ED re-evaluation. Encouraged patient to update their surgeon in the daylight hours today with my findings and recommendations. They may want to see patient in clinic and may change the therapy. Encouraged patient to seek consult from the surgical provider rather than changing Health Systems multiple times. They verbalized understanding and agreement. Doxycycline started here in the ED, additional prescription sent to pharmacy. Culture collected. I will let patient know if we need to change therapy based on findings Vital Signs Vital signs: Initial Vital Signs Temperature 98.0 F 06/18/25 00:21 Temperature Source Temporal Artery Scan 06/18/25 00:21 Pulse Rate 74 06/18/25 00:21 Respiratory Rate 16 06/18/25 00:21 Blood Pressure 129/79 06/18/25 00:21 Blood Pressure Mean 95 06/18/25 00:21 Blood Pressure Position Sitting 06/18/25 00:21 Pulse Oximetry 97 06/18/25 00:21 Oxygen Delivery Method Room Air 06/18/25 00:21 Vital Signs Temperature 98.0 F 06/18/25 00:21 Pulse Rate 74 06/18/25 00:21 Respiratory Rate 16 06/18/25 00:21 Blood Pressure 129/79 06/18/25 00:21 Pulse Oximetry 97 06/18/25 00:21 Oxygen Delivery Method Room Air 06/18/25 00:21 Temperature 98.0 F 06/18/25 00:21 Pulse Rate 74 06/18/25 00:21 Respiratory Rate 16 06/18/25 00:21 Blood Pressure 129/79 06/18/25 00:21 Pulse Oximetry 97 06/18/25 00:21 Oxygen Delivery Method Room Air 06/18/25 00:21 Discharge Plan Discharge Clinical Impression: Postoperative wound infection Patient Disposition: Home, Self-Care Condition: Stable Instructions: Surgical Site Infections (ED) Additional Instructions: As we discussed, there is some minimal redness and drainage at the top of your incision. My suspicion is that this is most likely inflammatory and not an infection. Thankfully. There does not seem to be any signs of infection deep in the joint, no signs of abscess or infection of the bone. As a precaution, I do recommend that we start you on an antibiotic for the next 7 days. This will be twice a day, please pick this up at the pharmacy today. Please call and update your surgeon that you were evaluated for this and that a culture was taken. Your started on an antibiotic but everything looks pretty good. They may want to see you in the clinic. Continue taking the remainder of your medications as prescribed. You should come to emergency room if you have high fever over 100.4, severe increase in redness, swelling or other signs of complication. Continue all precautions that you were previously given by your surgical team. Activity Level: Activity as Tolerated Discharge Diet: Regular Prescriptions: New doxycycline hyclate 100 mg tablet 100 mg PO BID Qty: 14 0RF No Action albuterol sulfate 90 mcg/actuation HFA aerosol inhaler 2 puff inhalation Q4-6H PRN (Reason: shortness of breath or wheezing) Qty: 8.5 3RF montelukast 10 mg tablet 10 mg PO DAILY testosterone enanthate 200 mg/mL oil 80 mg subcut Q7D Rx Instructions: FRIDAYS ipratropium-albuterol 0.5 mg-3 mg(2.5 mg base)/3 mL solution for nebulization 3 ml inhalation Q6H PRNQty: 90 1RF ibuprofen dextroamphetamine-amphetamine 10 mg tablet 1 tab PO HS aripiprazole 15 mg tablet 15 mg PO DAILY dextroamphetamine-amphetamine 15 mg tablet 1 tab PO DAILY dextroamphetamine-amphetamine 10 mg capsule,extended release 24hr 1 cap PO BID Combivent Respimat 20-100 mcg/actuation mist 1 puff inhalation TID sertraline 100 mg tablet 150 mg PO DAILY levalbuterol tartrate 45 mcg/actuation HFA aerosol inhaler 2 puff INHALATION Q4H PRN (Reason: wheezing) trazodone 150 mg tablet 150 mg PO QPM Follow Up/Referrals: Gisela Zuñiga DO [Primary Care Provider, Family Practice] Stand Alone Forms: Test.tvth Info Instructions
== END 2025-06-18 01:58 | disposition home or self-care (01) ==
PROVIDERS: Emergency Provider Family Medicine; PCP Family Medicine
DX: T81.41XA Infection following a procedure, superficial incisional surgical site, initial encounter (principal); F17.290 Nicotine dependence, other tobacco product, uncomplicated; Y83.8 Other surgical procedures as the cause of abnormal reaction of the patient, or of later complication, without mention of misadventure at the time of the procedure
CPT/HCPCS: 87070; 87186; 99283

== ENCOUNTER 2025-08-06 01:45 | Emergency (ER) | payer MEDICARE, MEDICAID, SELFPAY ==
--- OUTSIDE RECORDS SUMMARY | 2025-07-15 09:15 | XMS_ITS | Encounter Summary ---
Author Organization [facility] Address [address] [place] [address] Care Team Providers Care Automated Logistics Specialist Name Role Phone Elsewhere, Pcp Primary Care Provider Unavailabl e Reason for Referral * Outpatient (Routine) - ClosedSpecialtyDiagnoses / ProceduresReferred By ContactReferred To Contact Diagnoses Pain Knee Right Procedures DX Femur Right 2 Views Andrew Hansen APRN, C.N.P., M.S.N. [facility] [place] [address] Phone: tel: fax: [facility] Referral IDStatusReasonStart DateExpiration DateVisits RequestedVisits [id number]/6/20251/6/202711 CAL OFFICE PROFESSIONAL INSTRUCTOR Reason for Visit * Outpatient (Routine) - ClosedSpecialtyDiagnoses / ProceduresReferred By ContactReferred To Contact Diagnoses Pain Knee Right Procedures DX Femur Right 2 Views Andrew Hansen APRN C.N.P., M.S.N. [address] [place] [address] Phone: tel: fax: [facility] Referral IDStatusReasonStart DateExpiration DateVisits RequestedVisits [id number]/6/20251/6/202711 Encounter Details DateTypeDepartmentCare Team (Latest Contact Info)Xqkzzidhtzo18/20/2025 9:15 AM MEDICAL OFFICE PROFESSIONAL INSTRUCTOR - 07/15/2025 11:59 PM CSTHospital Encounter Department of Radiology, [facility], in [place], [place] [address] [place] [address] Andrew Hansen APRN C.N.PArik, M.S.N. [address] [place] [phone] Pain Knee Right Discharge Disposition: Home or [...] live05/16/2025CommentsNoSex and Gender InformationValueDate RecordedSex Assigned at CboseKolcxh15/21/2025 2:33 AM CDTLegal McuXavvjh71/03/2017 10:03 PM CSTGender IdentityTransgender Male 05/16/2025 2:33 [...] Plan of Treatment DateTypeDepartmentCare Team (Latest Contact Info)Idopahlfnnx36/16/2025 12:45 PM CSTClinical Support Department of Physical Medicine and Rehabilitation in [place] [address] [place] [address] Andrew Hansen APRN, C.N.P., M.S.N. [address] [place] [phone] Abdulkadir Jesus, P.T., D.P.T. [address] [place] [phone] 08/24/2025 1:30 PM CSTClinical Support Department of Physical Medicine and Rehabilitation in [place], [place] [address] [place] [address] Andrew Hansen APRN, C.N.P., M.S.N. [address] [place] [address] Abdulkadir Jesus, P.T., D.P.T. [address] [place] [phone] 09/14/2025 10:20 AM CSTAppointment Department of Radiology, [facility], in [address] [phone] Andrew Hansen APRN, C.N.P., M.S.N. [address] [place] [phone] Discharge Disposition: Home or Self Care09/14/2025 10:45 AM CSTOffice Visit Department of Orthopedic Surgery in [address] [phone] Andrew Hansen APRN, C.N.P., M.S.N. [address] [place] [phone] documented as of this encounter Procedures Procedure NamePriorityDate/TimeAssociated DiagnosisCommentsDX FEMUR RIGHT 2 VIEWSRAD - Routine (most inpatients and all outpatients)07/15/2025 9:30 AM MEDICAL OFFICE PROFESSIONAL INSTRUCTOR Pain Knee Right documented in this encounter Results * DX Femur Right 2 Views (07/15/2025 9:30 AM MEDICAL OFFICE PROFESSIONAL INSTRUCTOR)Anatomical RegionLaterality ModalityLower Extremity, Femur, Musculoskeletal RST LOS, Musculoskeletal ARZ LOS, Muskuloskeletal FLA LOSRightDigital RadiographySpecimen (Source) Anatomical Location / LateralityCollection Method / VolumeCollection Time Received Time Impressions 07/15/2025 9:51 AM MEDICAL OFFICE PROFESSIONAL INSTRUCTOR Some radiographic evidence for healing involving the distal one third of right femur fracture, right femur intramedullary america remains intact Narrative 07/15/2025 9:51 AM MEDICAL OFFICE PROFESSIONAL INSTRUCTOR EXAM: DX FEMUR RIGHT 2 VIEWS COMPARISON: [...]
--- OUTSIDE RECORDS SUMMARY | 2025-07-15 10:00 | XMS_ITS | Encounter Summary ---
Author Organization [facility] Address [address] [place] [address] Care Team Providers Care Electrical Accessories I Assembler Name Role Phone Elsewhere, Pcp Primary Care Provider Unavailabl e Reason for Referral * Outpatient (Routine) - AuthorizedSpecialtyDiagnoses / ProceduresReferred By ContactReferred To Contact Diagnoses Fracture Lower End Femur Other Closed Initial Right (HCC) Procedures DX Femur Right 2 Views Andrew Hansen APRN C.N.P., M.S.N. [address] [place] [address] Phone: tel: fax: [facility] Referral IDStatusReasonStart DateExpiration DateVisits RequestedVisits [id number]/20/20252/20/202711 LINE WORKER * Outpatient (Routine) - AuthorizedSpecialtyDiagnoses / ProceduresReferred By ContactReferred To ContactOrthopedic Surgery Andrew Hansen APRN C.N.P., M.S.N. [address] [place] [address] Phone: tel: fax: [facility] Referral IDStatusReasonStart DateExpiration DateVisits RequestedVisits [id number]/20/20255/22/202711 LINE WORKER * Physical Therapy (Routine) - AuthorizedSpecialtyDiagnoses / ProceduresReferred By ContactReferred To Contact Diagnoses Fracture Lower End Femur Other Closed Initial Right (HCC) Procedures PT Evaluate and treat Andrew Hansen APRN, C.N.PArik, M.S.N. [address] [place] [phone] Phone: tel: fax: [facility] Referral IDStatusReasonStart DateExpiration DateVisits RequestedVisits [id number]/20/[id number] LINE WORKER Reason for Visit * ReasonCommentsFollow-upRight femurPost-opRight femur * Outpatient (Routine) - ClosedSpecialtyDiagnoses / ProceduresReferred By ContactReferred To ContactOrthopedic Surgery Andrew Hansen APRN, C.N.PArik, M.S.N. [address] [place] [phone] Phone: tel: fax: [facility] Referral IDStatusReasonStart DateExpiration DateVisits RequestedVisits [id number]/6/20254/7/202711 Encounter Details DateTypeDepartmentCare Team (Latest Contact Info)Eflbwapzdbx66/20/2025 10:00 AM CSTOffice Visit Department of Orthopedic Surgery in [address] [phone] Andrew Hansen APRN, C.N.P., M.S.N. [address] [place] [phone] Fracture Lower End Femur Other Closed [...] in other ways by your partner or ex-partner?05/16/2025 Within the last year, have you been [...] RecordedIn the past 12 months has the [employer], gas, oil, or water [employer] threatened to shut off services in your home?05/16/2025Housing StabilityAnswerDate RecordedWhat is your living situation today?I have a steady place to live05/16/2025CommentsNoSex and Gender InformationValueDate RecordedSex Assigned at VrhwtOluddc16/21/2025 2:33 AM CDTLegal ByiGwxpte64/03/2017 10:03 PM CSTGender IdentityTransgender Male 05/16/2025 2:33 AM CDTSexual OrientationNot on filedocumented as of this encounter Last Filed Vital Signs Vital SignReadingTime TakenCommentsBlood Pressure--Pulse--Yefyodyzfml88.9 ??C (96.6 ??F)07/15/2025 9:50 AM CSTRespiratory Rate--Oxygen Saturation--Inhaled Oxygen Concentration--Weight--Height--Body Mass Index--documented in this encounter Progress Notes * Andrew Hansen APRN, C.N.P., M.S.N. - 07/15/2025 10:00 AM CST SUBJECTIVE Pain reported: Site 1 Pain Score: 5 - Moderate pain, Pain Location: Leg, Pain Orientation: Right, (07/15/25 0949 :Padmini Loyola) CHIEF COMPLAINT / REASON FOR VISIT Luli Wharton is a 25 y.o. adult who presents for follow-up of Follow-up and Post-op of the RightLeg (Right femur ) and is under the care of ELSEWHERE, PCP. The patient verbally consented to an audio recording of their visit to assist with the completion of documentation. DATE OF VISIT: 07/15/2025 ORTHOPEDIC POSTOPERATIVE NOTE Patient: Luli Wharton (???Jace?? ), 25 y.o. Provider: Andrew Hansen CNP Attending Surgeon: Melchor Marcelo D.O. Primary Care: ELSEWHERE, PCP Procedure: Right long intramedullary nail - femoral shaft fracture Date of Surgery: 05/16/2025 History of Present Illness Luli Wharton (???Jace?? ) is a 25-year-old adult presenting for postoperative follow-up 8 weeksafter right femoral intramedullary nail fixation (DOS: 05/16/2025). The injury occurred after falling and striking the leg on a corner. Since surgery, Jace reports: Persistent right knee pain, 4-5/10 at rest, worsening with activity Pain severe enough on some days to require staying in bed Difficulty straightening and bending the knee Muscle spasms and weakness in the right leg Nighttime hip pain interfering with sleep Continues to use crutches for mobility Has not started physical therapy Completed Lovenox course Taking Tylenol for pain; has run out of Flexeril Denies chest pain, shortness of breath, fever, or other systemic symptoms Pain is localized to the knee and hip region. No new injuries. Activities of daily living are limited. SURGICAL HISTORY Surgical History[1] [email or web address] SOCIAL HISTORY Tobacco history is Tobacco Use History[2]. REVIEW OF SYSTEMS Constitutional: negative for chills, fever, nausea, vomiting. OBJECTIVE VITAL SIGNS BP Temp (!) 35.9 ??C (07/15/25 0950) Pulse Resp SpO2 There is no height or weight on file to calculate BMI. LAB VALUES Lab Results Component Value Date WBC 9.2 07/06/2025 HGB 18.1 (H) 07/06/2025 HCT 52.7 (H) 07/06/2025 MCV 89.3 07/06/2025 PLT 373 07/06/2025 A PHYSICAL EXAM Orthopedic Physical Examination General Alert, oriented, answering appropriately, no acute distress. Skin/Vascular (Right Leg) Well perfused Dorsalis pedis pulse 2+ Capillary refill <= 2 sec Incision completely healed; no erythema, drainage, warmth, or ecchymosis Calves soft, nontender Musculoskeletal Able to perform active ankle dorsiflexion, plantar flexion, inversion, eversion Able to flex/extend all toes EHL/FHL intact Mild swelling & tenderness around right knee No gross deformity or instability Neurologic Sensation intact to: Deep peroneal Superficial peroneal Tibial Sural Saphenous nerves DIAGNOSTIC RESULTS Right Femur X-Ray (07/15/2025) IM nail intact Ununited distal one-third femur fracture Fluffy callus formation present = early healing Bone mineralization decreased Joint spaces preserved Stable compared to 06/17/2025 Right Knee X-Ray (05/31/2025): Small effusion; no fracture Hardware intact IMPRESSION/ASSESSMENT/PLAN ASSESSMENT 8-week postoperative status - Right femoral shaft fracture (IM nail 05/16/2025) Stable postoperative alignment Hardware intact Early callus formation Incision fully healed No complications detected Right Knee Pain Mild effusion No fracture or malalignment on imaging PLAN Wound Care Monitor for redness, warmth, drainage, swelling, fever, or chills. Contact clinic immediately if concerning signs occur. Activity / Weight Bearing Continue weight bearing as tolerated using assistive device. May begin transition from crutches ? cane as tolerated. Begin formal physical therapy for ROM and strengthening. Continue home ROM exercises. Continue ice and elevation for pain and swelling. Medications Continue Tylenol as needed. Flexeril refill provided for muscle spasms. Voltaren (diclofenac) gel prescribed. Knee Pain Management Continue RICE therapy (rest, ice, compression, elevation). Avoid high-impact activity, running, or uneven surfaces. Knee brace/elastic wrap as needed for comfort and stability. Return sooner if swelling increases or locking/instability occurs. Follow-Up Follow up in 8 weeks with repeat right femur and right knee X-rays. Return sooner for worsening pain, redness, drainage, fever, or any concerns. ADMINISTRATIVE / BILLING No charge - postoperative global period SIGNATURE Andrew Hansen CNP Orthopedic Surgery [1] Past Surgical History: Procedure Laterality Date SURGICAL MANAGEMENT SHAFT FRACTURE FEMUR Right 05/16/2025 Procedure: SURGICAL MANAGEMENT SHAFT FRACTURE FEMUR; Surgeon: Melchor Marcelo D.O.; Location: [facility] [2] Social History Tobacco Use Smoking Status Every Day Types: Cigarettes Smokeless Tobacco Current LINE WORKER documented in this encounter Plan of Treatment DateTypeDepartmentCare Team (Latest Contact Info)Hjroyoemewj01/16/2025 12:45 PM CSTClinical Support Department of Physical Medicine and Rehabilitation in [place], [place] [address] [place] [address] Andrew Hansen APRN, C.N.P., M.S.N. [address] [place] [address] Abdulkadir Jesus PSegun., D.P.T. [address] [place] [phone] 08/24/2025 1:30 PM CSTClinical Support Department of Physical Medicine and Rehabilitation in [place], [place] [address] [place] [address] Andrew Hansen APRN, C.N.P., M.S.N. [address] [place] [phone] Abdulkadir Jesus P.T., D.P.T. [address] [place] [address] 09/14/2025 10:20 AM CSTAppointment Department of Radiology, [facility], in [address] [phone] Andrew Hansen APRN, C.NAngela., M.S.N. [address] [place] [phone] Discharge Disposition: Home or Self Care09/14/2025 10:45 AM CSTOffice Visit Department of Orthopedic Surgery in [address] [phone] Andrew Hansen APRN, C.NAngela., M.S.N. [address] [place] [phone] NameTypePriorityAssociated DiagnosesOrder ScheduleDX Femur Right 2 ViewsImaging RAD - Routine (most inpatients and all outpatients) Fracture Lower End Femur Other Closed Initial Right (HCC) Expected: 09/14/2025, Expires: 10/15/2026NameTypePriorityAssociated Diagnoses Order ScheduleOrthopedic Surgery office visit (clinic)Outpatient ReferralRoutine Expected: 08/14/2025, Expires: 10/15/2026documented as of this encounter Visit Diagnoses Diagnosis Fracture Lower End Femur Other Closed Initial Right (HCC)- Primary documented in this encounter Care Teams Team MemberRelationshipSpecialtyStart DateEnd Date Elsewhere, Pcp PCP - GeneralInternal Medicine05/16/25documented as of this encounter
--- OUTSIDE RECORDS SUMMARY | 2025-07-27 14:15 | XMS_ITS | Encounter Summary ---
Author Organization [facility] Address [address] [place] [address] Care Team Providers Care Non Destructive Testing Specialist Name Role Phone Elsewhere, Pcp Primary Care Provider Unavailabl e Reason for Referral * Physical Therapy (Routine) - AuthorizedSpecialtyDiagnoses / ProceduresReferred By ContactReferred To Contact Diagnoses Fracture Lower End Femur Other Closed Initial Right (HCC) Procedures PT Ongoing treatment Andrew Hasnen APRN, C.N.P., M.S.N. [facility] [place] [address] Phone: tel: fax: [facility] Region Referral IDStatusReasonStart DateExpiration DateVisits RequestedVisits [id number]/2/20253/[id number] AGENT Reason for Visit * Physical Therapy (Routine) - AuthorizedSpecialtyDiagnoses / ProceduresReferred By ContactReferred To Contact Diagnoses Fracture Lower End Femur Other Closed Initial Right (HCC) Procedures PT Evaluate and treat Andrew Hansen APRN C.N.P., M.S.N. [facility] [place] [address] Phone: tel: fax: [facility] Referral IDStatusReasonStart DateExpiration DateVisits RequestedVisits [id number]/20/20252/[id number] Encounter Details DateTypeDepartmentCare Team (Latest Contact Info)Dtezpcsnnya51/09/2024 2:15 PM CSTComprehensive Visit Department of Physical Medicine and Rehabilitation in [place], [place] [address] [place] [phone] Andrew Hansen APRN, C.N.P., M.S.N. [address] [place] [phone] Abdulkadir Jesus P.T., D.P.T. [address] [place] [phone] Fracture Lower End Femur Other Closed Initial Right (HCC) Social History Tobacco UseTypesPacks/DayYears UsedDateSmoking Tobacco: Every [...] otherwise physically hurt by your partner or ex-partner?No05/16/2025Within the last year, have you been raped or forced to have any kind of sexual activity by your part ner or ex-partner?No05/16/2025Hunger Vital SignAnswerDate RecordedWithin the past 12 months, [...] live05/16/2025CommentsNoSex and Gender InformationValueDate RecordedSex Assigned at YagsqSbiqxu81/21/2025 2:33 AM CDTLegal NdeTqwuyr05/03/2017 10:03 PM CSTGender IdentityTransgender Male 05/16/2025 2:33 AM CDTSexual OrientationNot on filedocumented as of this encounter Consult Notes * Abdulkadir Jesus PSegun., D.P.T. - 07/27/2025 2:15 PM CST Physical Therapy Outpatient Evaluation/Treatment By co-signing this note, the provider certifies the therapy being provided to this patient is reasonable and necessary for the diagnosis or treatment of this patient. SUBJECTIVE Patient's Name: Luli Wharton Referring Provider: Andrew Hansen APRN C.N.PArik, M.S.N. Visit Diagnosis: 1. Fracture Lower End Femur Other Closed Initial Right (HCC) Reason for Referral: Right Femur Fracture Onset Date: 05/16/25 Payor: MEDICARE / Plan: MEDICARE A AND B / Product Type: Medicare / [place] Visit Count: 1 PERTINENT MEDICAL / SURGICAL HISTORY: Problem List[1] Surgical History[2] Diagnostic Tests: X-Ray Patient presents to outpatient physical therapy for evaluation of symptoms including: Pain Weakness Decreased range of motion Difficulty with ambulation Difficulty with prolonged standing Overall patient reports status is improving . History of Present Illness Patient is a pleasant 25 year old male presenting to Physical Therapy post op right femur fracture.He was lifting up his girlfriend when he tripped and his leg on the corner of a table. He fracturedhis femur. He had surgery. He had a [place] and screws placed. He was non weight bearing for around a month. He has been able to bear weight. He continues to use crutches for mobility. He does not use crutches in the house except for longer distances. He continues to have pain. Pain is mostly in his knee. When he lays on either sides he will have pain in his hip. He is not currently working. He wouldlike to get back to walking. He enjoys fishing. He would like to ice fish. He needs to perform a few steps to get into the house. He has been able to return to driving. He is no longer taking pain medication. He is right handed. He will follow up with the orthopedic team on September 14. Aggravating Factors: Ambulation and bilateral sidelying. Relieving Factors: Sitting Previous Treatments: Heat/Cold modalities, Pain Medication, and Surgery Prior Function/Occupational Profile: Prior Mobility/Functional Transfers Level of [place]: Independent Prior Function/Occupational Profile Dominant Hand: Right Lives With: Friend(s) Receives Help From: Family ADL Assistance: Independent IADL/Homemaking Assistance: Independent Driving: Independent Occupational Role: On disability Home Living Type of Home: Mobile home Home Layout: One level Home Access: Stairs to enter without rails Entrance Stairs: Number of Steps: 4 Patient goals:Increase function, walking and strength. OBJECTIVE REVIEW OF SYSTEMS History obtained from the patient PHYSICAL EXAM Pain: Pain Assessment Pain Assessment: 0-10 Numeric Pain Intensity Scale Pain Score: 3 Pain Type: Acute pain Pain Location: Knee Pain Orientation: Right Patient presents with FOTO functional status score of 43 (MCII: 12 and MDC: 9) indicating general function at stage 2. The risk adjusted functional status score is 42. Patient is predicted to have 22points of functional status change in 18 visits over 76 days based on normative data. Physical Exam Observation/Inspection: Patient is a normal appearing 25 year old male in no acute distress. Gait/Stairs: Patient ambulates with antalgic gait pattern with bilateral axillary crutches. Palpation: Hypertonicity noted in right quad and IT band. Range of Motion: ROM - Lower Extremity Screen: Impaired right AROM Assessment AROM Assessment: LLE RLE AROM (degrees) R Hip Flexion 0-125: 110 R Hip ABduction 0-45: 40 R Knee Flexion 0-140: 120 R Knee Extension 0-130: 0 LLE AROM (degrees) L Hip Flexion 0-125: 120 L Hip ABduction 0-45: 45 L Knee Flexion 0-140: 135 L Knee Extension 0-130: 0 Strength:Strength - Lower Extremity Screen: Impaired right Strength Assessment Strength Assessment: LLE RLE Strength R Hip Flexion: 4/5 R Hip ABduction: 3+/5 R Hip ADduction: 4/5 R Knee Flexion: 3+/5 R Knee Extension: 3+/5 LLE Strength L Hip Flexion: 5/5 L Hip ABduction: 5/5 L Hip ADduction: 5/5 L Knee Flexion: 5/5 L Knee Extension: 5/5 Ortho Exam Cognition Arousal/Alertness: Appropriate responses to stimuli Attention: Addressed, no concerns noted Safety/Judgment: Addressed, no concerns noted TREATMENT Treatment today consisted of: Therapeutic Exercise: Supine Straight Leg Raise: Red Theraband 10 reps Supine Bridge: 10 reps Seated Knee Extension: Red Theraband 10 reps Seated Knee flexion: Red Theraband 10 reps Home Exercise Program/Education: Access Code: [email or web address] URL: [email or web address] Date: 07/27/2025 Prepared by: Abdulkadir Jesus Exercises - Supine Straight-Leg Raise With Resistance at Ankles - 1 x daily - 7 x weekly - 3 sets - 10-20 reps - Supine Bridge - 1 x daily - 7 x weekly - 3 sets - 10-20 reps - Seated Knee Extension with Resistance - 1 x daily - 7 x weekly - 3 sets - 10 reps - Seated Hamstring Curl with Anchored Resistance - 1 x daily - 7 x weekly - 3 sets - 10 reps Assessment & Plan Clinical Impression: Patient presents to physical therapy with signs and symptoms consistent with post op femur fracture. Impairments: Pain, weakness and decreased range of motion. Functional deficits: Difficulty with ambulation and prolonged standing. Rehab Potential: Patient has Good potential to achieve established physical therapy goals within the time frame outlined below, provided active participation in the physical therapy treatment plan and home program. Comorbid Conditions: Cognitive/memory disorder, Mental health disorder Personal Factors: Age Clinical Presentation: Evolving Examination elements: 3 Clinical Decision Making: Moderate complexity clinical decision making Functional Goals and Timeframes: PT Outpatient Goals PT Goal #1: Patient will be able to ambulate 1 mile with 0/10 pain and no AD. PT Goal #1 to be achieved by: 10/25/25 PT Goal #2: Patient will be able to stand for 15 minutes with 0/10 pain and no AD. PT Goal #2 to be achieved by: 10/25/25 PT Goal #3: Patient will be able to perform bilateral sidelying with 0/10 pain to increase sleep tolerance. PT Goal #3 to be achieved by: 10/26/25 PT Goal #4: Patient will increase FOTO score by 15 points to demonstrate functional improvements. PT Goal #4 to be achieved by: 10/25/25 Patient was educated regarding evaluative findings, diagnosis, prognosis, potential risks and benefits of rehabilitation interventions. A collaborative effort was used to establish goals and plan of care. The patient was informed of the right to make decisions regarding care, including refusal of examination or treatment or selection of services from another provider if desired. The treatment plan may be progressed or modified based upon the patient's response to treatment. Physical Therapy Attestation Statement: Patient agrees with the plan of care and goals. Treatment Plan: Plan: Plan of care initiated Start of Plan of Care: 07/27/2025 PT Next Certification Date: 10/25/25 Number of Visits:30 visits PT Duration: 90 days PT Frequency: PT Frequency: 1 time per week Treatment interventions may include: Treatment/Interventions: Therapeutic functional activity, Neuromuscular re- education, Gait training, Manual therapy, Therapeutic exercise Plan for next session: Progress strengthening and gait. Manual Therapy to decrease muscle tone. Time Spent with Patient Evaluations PT Eval - Mod Complexity: 31 min Therapeutic Interventions Therapeutic Exercise (min): 12 min Time Tracking Total Timed Units (min): 12 min Total Treatment Time (min): 43 min [1] Patient Active Problem List Diagnosis [...] Syndrome Seizure (HCC) Tobacco Use [2] Past Surgical History: Procedure Laterality Date SURGICAL MANAGEMENT SHAFT FRACTURE FEMUR Right 05/16/2025 Procedure: SURGICAL MANAGEMENT SHAFT FRACTURE FEMUR; Surgeon: Melchor Marcelo D.O.; Location: [facility] OR Cosigned by Andrew Hansen APRN, C.N.P., M.S.N. at 08/03/2025 6:22 PM NEWSAGENT AGENT AGENT documented in this encounter Plan of Treatment DateTypeDepartmentCare Team (Latest Contact Info)Wwitzfviteb33/16/2025 12:45 PM CSTClinical Support Department of Physical Medicine and Rehabilitation in [address] [phone] Andrew Hansen APRN, C.N.P., M.S.N. [address] [place] [phone] Abdulkadir Jesus P.T., D.P.T. [address] [place] [phone] 08/24/2025 1:30 PM CSTClinical Support Department of Physical Medicine and Rehabilitation in [place], [place] [address] [place] [address] Andrew Hansen APRN, C.NMarie, M.S.N. [address] [place] [phone] Abdulkadir Jesus P.T., D.P.T. [address] [place] [phone] 09/14/2025 10:20 AM CSTAppointment Department of Radiology, [facility], in [place], [place] [address] [place] [phone] Andrew Hansen APRN, C.NMarie, M.S.N. [facility] [place] [phone] Discharge Disposition: Home or Self Care09/14/2025 10:45 AM CSTOffice Visit Department of Orthopedic Surgery in [place], [place] [address] [place] [phone] Andrew Hansen APRN, C.N.P., M.S.N. [address] [place] [phone] documented as of this encounter Visit Diagnoses Diagnosis Fracture Lower End Femur Other Closed Initial Right (HCC) documented in this encounter Care Teams Team MemberRelationshipSpecialtyStart DateEnd Date Elsewhere, Pcp PCP - GeneralInternal Medicine05/16/25documented as of this encounter
--- OUTSIDE RECORDS SUMMARY | 2025-08-06 01:47 | XMS_ITS | Clinical Summary ---
Author Organization [facility] Address [address] [place] [address] Care Team Providers Care Battery Plate Remover Name Role Phone Elsewhere, Pcp Primary Care Provider Unavailabl e Source Comments Patient records contain information from all sites at [facility]. For routine questions regarding patient records, call [phone] during business hours, M-F 8:00 AM - 5:00 PM Central Time. Record requests for emergency care only can be directed to [phone] at any time.[facility] Allergies Active AllergyReactionsCriticalityNoted DateCommentsOndansetronNausea And Vomiting,GI iizqjoevgzg46/16/2020 Causes paradoxical increased vomiting. Medications MedicationSigDispense QuantityRefillsLast FilledStart DateEnd DateStatus albuterol 90 mcg/actuation inhaler Inhale 2 puffs 4 (four) times a day as needed.09/11/2021ctive ARIPiprazole (Abilify) 20 mg tablet Take 20 mg by mouth daily.09/01/2020ctive amphetamine-dextroamphetamine (AdderalL XR) 10 mg 24 hr capsule Take 10 mg by mouth every morning.08/16/2024ctive fluticasone propionate (Flonase) 50 mcg/actuation nasal spray Administer 1 spray into each nostril daily.08/01/2022ctive ipratropium-albuteroL (DuoNeb) 0.5-2.5 mg/3 mL nebulizer solution Inhale 3 mL every 4 (four) hours as needed.12/19/2023ctive montelukast (Singulair) 10 mg tablet Take 10 mg by mouth at bedtime.06/02/2022ctive sertraline (Zoloft) 100 mg tablet Take 150 mg by mouth daily.01/28/2020Active testosterone cypionate (Depo-Testosterone) 200 mg/mL injection Inject 70 mg intramuscularly over 168 hr.4Active busPIRone (BuSpar) 15 mg tablet Take 15 mg by mouth 2 (two) times a day.Active amphetamine-dextroamphetamine (AdderalL XR) 5 mg 24 hr capsule Take 5 mg by mouth every evening.5Active ipratropium-albuteroL (Combivent Respimat) 20-100 mcg/actuation inhaler Inhale 1 puff 3 (three) times a day.07/21/2023ctive hydrOXYzine (Atarax) 25 mg tablet Take 50 mg by mouth at bedtime as needed (sleep).04/30/2025tive budesonide-formoteroL (Symbicort) 160-4.5 mcg/actuation inhaler Inhale 2 puffs 2 (two) times a day as needed.08/06/2023ctive acetaminophen (TylenoL) 500 mg tablet Take 2 tablets (1,000 mg total) by mouth every 6 (six) hours for 30 days. 240 tablet 5Active sennosides-docusate sodium (Senokot-S) 8.6-50 mg per tablet Take 1 tablet by mouth at bedtime as needed for constipation. 30 tablet 05/17/2025tive cyclobenzaprine (FlexeriL) 5 mg tablet Take 1 tablet (5 mg total) by mouth 3 (three) times a day as needed for muscle spasms. 30 tablet 5Active diclofenac sodium (Voltaren) 1 % gel Apply 4 g topically 4 (four) times a day as needed (to areas of arthritic pain). Apply to right knee. 100 g 5Active enoxaparin (Lovenox) 40 mg/0.4 mL injection Inject 0.4 mL (40 mg total) under the skin daily for 35 days. 14 mL Discontinued(Therapy completed) cyclobenzaprine (FlexeriL) 10 mg tablet Take 1 tablet (10 mg total) by mouth 3 (three) times a day as needed for muscle spasms for up to 10days. 30 tablet Discontinued(Therapy completed) meloxicam (Mobic) 15 mg tablet Take 1 tablet (15 mg total) by mouth daily for 30 days. 30 tablet 5109/14/2024Discontinued(Therapy completed) Active Problems ProblemNoted DateDiagnosed DateFracture Femur Shaft Oblique Displaced Closed Initial Right05/16/2025Fracture Lower End Femur Other Closed Initial Right 05/16/2025sthma Dtxfzmcfvbhs34/21/2025 Overview (05/16/2025): Had asthma problems the beginning July. Put on a 12 day taper. Asthma got worse couple days after finishing the taper. Continues on home inhalers as prescribed. Follows with pulmonology. No definite recent respiratory illness. Utbgcqonsbrtqum84/21/2025Gender Incongruence Adolescent Or Adult05/16/2025 Overview (05/16/2025): female to male Tobacco Use05/16/2025 Overview (05/16/2025): Advised to avoid vaping due to potential for respiratory problems Xgmznxd1512/14/2024 Overview (05/16/2025): Hx of non-epileptic seizure-like events Posttraumatic Stress Disorder Brief2Attention Deficit Disorder Combined Type02/04/2020Anxiety Disorder Mrvtdrjvabl20/11/2020Cannabis Use Unspecified Gdmctpygxkewn42/14/2020Depression Major Recurrent Jhcbxujp38/11/2018Post Concussion Njlybeww89/28/2016Disruptive Mood Dysregulation Mapolnfo39/25/2016 Encounters DateTypeDepartmentCare HjrzOmvasexkzbs20/02/2025 2:15 PM CSTComprehensive Visit Department of Physical Medicine and Rehabilitation in [place], [place] [address] [place] [address] Andrew Hansen, RENÉE, C.N.P., M.S.N. Abdulkadir Jesus, P.T., D.P.T. Fracture Lower End Femur Other Closed Initial Right (HCC)07/15/2025 10:00 AM HOST AND HOSTESS Office Visit Department of Orthopedic Surgery in [place] [address] [place] [address] Andrew Hansen APRN, C.NArikP., M.S.N. Fracture Lower End Femur Other Closed Initial Right (HCC) (Primary Dx) Discharge Disposition: Home or Self Care07/15/2025 9:15 AM HOST AND HOSTESS - 07/15/2025 11:59 PM CSTHospital Encounter Department of Radiology, [facility], in [address] [phone] Andrew Hansen APRN, C.N.Pawel, M.S.N. Pain Knee Right Discharge Disposition: Home or Self Care06/17/2025 3:42 PM CDT - 06/17/2025 5:14 PM TEathol [facility]Johnson [facility] [address] [place] [phone] Doris Ocasio APRN C.N.P., D.N.P. Pain Leg Right (Primary Dx) Discharge Disposition: Left Against Medical Advice or Discontinued Care 06/11/2025 9:45 AM CDTOffice Visit Department of Orthopedic Surgery in [address] [phone] Nithin Hinds P.A.-C., M.S. Fracture Lower End Femur Other Closed Initial Right (HCC) (Primary Dx) Discharge Disposition: Home or Self Care06/11/2025Refill Department of Orthopedic Surgery in [address] [address] Nithin Hinds P.A.-C., M.S. Med Change Shyvrhq7206/09/2025linical Communication Department of Orthopedic Surgery and Sports Medicine at [facility] in [place], [place] [address] [facility] [address] [place] [phone] Andrew Hansen APRN, C.N.P., M.S.N. Post-op Qvpudwr2405/31/2025 2:02 PM CDT - 05/31/2025 11:59 PM CDTHospital Encounter Department of Radiology, [facility], in [address] [phone] Andrew Hansen APRN, C.N.P., M.S.N. Pain Knee Right Discharge Disposition: Home or Self Care05/31/2025 1:45 PM CDTOffice Visit Department of Orthopedic Surgery in [address] [phone] Andrew Hansen APRN, C.N.P., M.S.N. Pain Knee Right (Primary Dx) Discharge Disposition: Home or Self Care05/31/2025 12:48 PM CDT - 05/31/2025 2:01 PM CDTHospital Encounter Department of Radiology, [facility], in [address] [phone] Nithin Hinds P.A.-C., M.S. Fracture Lower End Femur Other Closed Initial Right (HCC) Discharge Disposition: Home or Self Care05/25/2025 1:30 PM CDTOffice Visit Department of Orthopedic Surgery in [address] [phone] Deepthi Zhong P.A.-C., P.A., M.S. Follow Up Examination Postoperative Visit (Primary Dx) Discharge Disposition: Home or Self Care05/24/2025Refill Department of Orthopedic Surgery in [address] [phone] Nithin Hinds P.A.-C., M.S. Med Phqach0005/16/2025 12:15 PM CDT - 05/16/2025 2:52 PM CDTSurgery Outpatient Procedure Center in [address] [phone] Melchor Marcelo D.O. SURGICAL MANAGEMENT SHAFT FRACTURE FEMUR05/16/2025 11:59 AM CDTAnesthesia Event Outpatient Procedure Center in [place], [place] [address] [place] [address] Annmarie Spencer M.D. 05/16/2025 8:16 AM CDT - 05/17/2025 2:16 PM CDTHospital Encounter [facility], [facility], Fifth Floor [address] [place] [address] Bam Kapoor M.D. Freed, Robert J, D.O. Fracture Lower End Femur Other Closed Initial Right (HCC) (Primary Dx); Fracture Femur Shaft Oblique Displaced Closed Initial Right (HCC) Discharge Disposition: Home or Self Care05/16/2025 1:25 AM CDT - 05/16/2025 7:23 [facility] [address] [place] [phone] Leobardo Jane M.D. Fracture Femur Epiphysis Displaced Closed Initial Right (HCC) (Primary Dx) Discharge Disposition: Acute Care Hospitalfrom Last 3 Months Social History Tobacco UseTypesPacks/DayYears UsedDateSmoking Tobacco: Every DayCigarettes Smokeless Tobacco: Current Tobacco Cessation:Ready to Q uit: Not Asked; Counseling Given: Not Answered Humiliation, Afraid, Rape, and Kick questionnaireAnswerDate RecordedWithin the last year, have you been afraid of your partner or ex-partner?No05/16/2025Within the last year, have you been humiliated or emotionally abused in other ways by your partner or ex-partner?No05/16/2025Within the last year, have you been kicked, hit, slapped, or otherwise physically hurt by your partner or ex-partner?No05/16/2025Within the last year, have you been raped or forced to have any kind of sexual activity by your partner or ex-partner?No05/16/2025 Hunger Vital SignAnswerDate RecordedWithin the past 12 months, you worried that your food would run out before you got the money to buymore.Never true05/16/2025 Within the past 12 months, the food you bought just didn't last and you didn't have money to get more.Never true05/16/2025PRAPARE - TransportationAnswerDate RecordedIn the past 12 months, has lack of transportation kept you from medical appointments or from getting medications?No05/16/2025In the past 12 months, has lack of transportation kept you from meetings, work, or from getting things needed for daily living?No05/16/2025HC UtilitiesAnswerDate RecordedIn the past 12 months has the [employer], gas, oil, or water [employer] threatened to shut off services in your home?No05/16/2025Housing StabilityAnswerDate RecordedWhat is your living situation today?I have a steady place to live05/16/2025 CommentsNoSex and Gender InformationValueDate RecordedSex Assigned at Iarsyx7605/16/2025 2:33 AM CDTLegal SngUsjorw43/03/2017 10:03 PM CSTGender IdentityTransgender Male05/16/2025 2:33 AM CDTSexual OrientationNot on file Last Filed Vital Signs Vital SignReadingTime TakenCommentsBlood Lsgvfpwx011/8210 4:02 PM CDT Disfi1187 4:02 PM ZSSVsjcyrlyjsz61.9 ??C (96.6 ??F)07/15/2025 9:50 AM CSTRespiratory Ytow2509 4:02 PM CDTOxygen Ezhnhbayde92%06/17/2025 4:02 PM CDTInhaled Oxygen Concentration--Agfavh69.7 kg (169 lb 1.5 oz)06/17/2025 3:59 PM DVUTswvjl062.6 cm (5' 5.98)05/16/2025 3:15 PM CDTBody Mass Index27.31 05/16/2025 3:15 PM CDT Plan of Treatment DateTypeDepartmentCare Team (Latest Contact Info)Sgdgwekhdzm95/16/2025 12:45 PM CSTClinical Support Department of Physical Medicine and Rehabilitation in [place] [address] [place] [address] Andrew Hansen, RENÉE, C.N.P., M.S.N. [address] [place] [phone] Abdulkadir Jesus P.T., D.P.T. [address] [place] [phone] 08/24/2025 1:30 PM CSTClinical Support Department of Physical Medicine and Rehabilitation in [place], [place] [address] [place] [phone] Andrew Hansen APRN, C.NMarie, M.S.N. [address] [place] [phone] Abdulkadir Jesus P.T., D.P.T. [address] [place] [phone] 09/14/2025 10:20 AM CSTAppointment Department of Radiology, [facility], in [place], [place] [address] [place] [phone] Andrew Hansen APRN, C.NArikPArik, M.S.N. [address] [place] [phone] Discharge Disposition: Home or Self Care09/14/2025 10:45 AM CSTOffice Visit Department of Orthopedic Surgery in [place], [place] [address] [place] [phone] Andrew Hansen APRN, C.N.P., M.S.N. [address] [place] [phone] Health MaintenanceDue DateLast DoneCommentsDepression Monitoring (PHQ-9) 2000HIV Qukjtyakf2000Hepatitis C Onhafzdaf2000Tobacco Cessation xcqtqtayuu2000Pneumococcal vaccine (0-49 years) (2 of 2 - PCV) /04/2021, 08/28/2001, 2000, Additional history exists Depression Monitoring (PHQ-9 for quality tracking)08/26/2024OVID-19 Vaccine ( - season)5012/14/2024, 07/20/2022, 01/12/2021, Additional history existsAsthma Action Plan05/16/2025sthma Control Test Questionnaire 05/16/2025sthma Management/Exacerbation Questionnaire (AMQ/AEQ)05/16/2025 Glucose Test for Med Gydheczxmv37, 05/17/2025, 05/16/2025, Additional history existsDTaP,Tdap,and Td Vaccines (8 - Td or Tdap)06/24/2026 06/24/2016, 11/14/2011, 06/15/2005, Additional history existsCervical/Vaginal Cancer Qsbzgwpre18Hepatitis B HtqimkxpPngjudqbj13/03/2002, 08/28/2001, 2000, Additional history existsIPV VaccinesCompleted 06/15/2005, 03/26/2001, 2000, Additional history existsHepatitis A MkawaabaEquthqirk24/21/2012, 07/07/2010HPV KgibfejbOfererbyw87/21/2025, 09/08/2019, 07/17/2013Influenza FysmrvoUyjrfobqt67/16/2025, 07/29/2024, 07/20/2022, Additional history exists Medical Devices ImplantedTypeAreaManufacturerDevice IdentifierShelf Expiration DateModel / Serial / LotNl Fem Rfn 5d 9x380 - Sn/A - [id number] Implanted:Qty: 1 on 05/16/2025 by [facility] e.g. pins/screws/rodsRight: FemurDepuy Wyfkoui5207/25/2026 04.233.938S / N/A / [id number] [facility] Xl25 5.0x68 - Sn/A - [id number] Implanted:Qty: 1 on 05/16/2025 by Melchor Marcel[facility] D[facility] at [facility] e.g. pins/screws/rodsRight: FemurDepuy Pqrseyd0708/25/2031 04.045.368S / N/A / [id number] [facility] Crystal Xl25 5.0x48 - Sn/A - [id number] Implanted:Qty: 1 on 05/16/2025 by Melchor [facility] at [facility] e.g. pins/screws/rodsRight: FemurDepuy Mgvlndv1105/25/2034 04.045.348S / N/A / [id number] [facility] Crystal Xl25 5.0x74 - Sn/A - [id number] Implanted:Qty: 1 on 05/16/2025 by Melchor Marcelo D.O. at [facility] e.g. pins/screws/rodsRight: FemurDepuy Ujneitp1007/25/2034 04.045.374S / N/A / [id number] na Lck 5.0x34 - Sn/A - [id number] Implanted:Qty: 1 on 05/16/2025 by Melchor Marcel[facility] D[facility] at [facility] e.g. pins/screws/rodsRight: FemurDepuy Xxpwppk6302/22/2034 04.045.034S / N/A / [id number] Frna Lck 5.0x34 - Sn/A - [id number] Implanted:Qty: 1 on 05/16/2025 by [facility] pins/screws/rodsRight: FemurDepuy Rcclpts1302/22/2034 04.045.034S / N/A / [id number] Nl Retrograde Rfn 0 - Sn/A - [id number] Implanted:Qty: 1 on 05/16/2025 by Melchor Marcel[facility] D[facility] at [facility] e.g. pins/screws/rodsRight: FemurDepuy Iqifyqy1701/23/2035 04.233.000S / N/A / [id number] Procedures Procedure NamePriorityDate/TimeAssociated DiagnosisCommentsDX FEMUR RIGHT 2 VIEWSRAD - Routine (most inpatients and all outpatients)07/15/2025 9:30 AM HOST AND HOSTESS Pain Knee Right C-REACTIVE PROTEIN (CRP), S/PSTAT1 5:12 PM CDT LACTATE FOR SEPSIS WITH TEYQHIRDYM70/23/2025 5:12 PM CDT BASIC METABOLIC PANEL, S/PSTAT1 5:12 PM CDT CBC WITH DIFFERENTIAL, BSTAT1 5:12 PM CDT DX FEMUR RIGHT 2 VIEWSRAD - Semiurgent (Fast; most ED patients; some inpatients) 06/17/2025 4:34 PM CDT DX KNEE RIGHT 4+ VIEWSRAD - Routine (most inpatients and all outpatients) 05/31/2025 2:42 PM CDT Pain Knee Right DX FEMUR RIGHT 2 VIEWSRAD - Routine (most inpatients and all outpatients) 05/31/2025 1:19 PM CDT Fracture Lower End Femur Other Closed Initial Right (HCC) CBC WITHOUT DIFFERENTIAL, YFwjieqa78/22/2025 6:48 AM CDT BASIC METABOLIC PANEL, S/JCdmmgmw38/22/2025 6:48 AM CDT CONTINUOUS PULSE CRWUBYKDMnjadry84/21/2025 3:04 PM CDTCONTINUOUS PULSE OXIMETRY Kgpgeft7905/16/2025 3:04 PM CDTCONTINUOUS PULSE ALCBIVAPXwvtfxr14/21/2025 3:04 PM CDTADULT OXYGEN UHHZIGRTmdisnk84/21/2025 2:19 PM CDTFL FLUORO LESS THAN 1 HOUR RAD - Routine (most inpatients and all outpatients)05/16/2025 1:23 PM CDT LDA ANE ENDOTRACHEAL MIVRJPSrwglng14/21/2025 12:08 PM CDT SURGICAL MANAGEMENT SHAFT FRACTURE FEMUR05/16/2025 11:59 AM CDT Fracture Femur Shaft Oblique Displaced Closed Initial Right (HCC) DX CHEST PORTABLE 1 VIEWRAD - Semiurgent (Fast; most ED patients; some inpatients)05/16/2025 8:51 AM CDT AKHPTMP0005/16/2025 8:45 AM CDT TESTING MGCOTPDUZebrgyi07/21/2025 8:38 AM CDT TYPE AND KAPMAEKxuphir75/21/2025 8:38 AM CDT URINALYSIS WITH MICROSCOPIC IF INDICATED, USTAT05/16/2025 6:47 AM CDT BACTERIAL CULTURE, AEROBIC + SUSC, IIVKEJENU43/21/2025 6:47 AM CDT DX FEMUR RIGHT 2 VIEWSRAD - Semiurgent (Fast; most ED patients; some inpatients) 05/16/2025 2:29 AM CDT SPLINT KMHIXKETNZNWjmgsfa28/21/2025 2:08 AM CDT HUMAN CHORIONIC GONADOTROPIN (HCG), HERMANN,STAT05/16/2025 1:46 AM CDT ETHANOL, SSTAT05/16/2025 1:46 AM CDT LACTATE, B/PSTAT05/16/2025 1:46 AM CDT PROTHROMBIN TIME (PT), PSTAT05/16/2025 1:46 AM CDT BASIC METABOLIC PANEL, S/PSTAT05/16/2025 1:46 AM CDT CBC WITH DIFFERENTIAL, BSTAT05/16/2025 1:46 AM CDT DX FEMUR RIGHT 2 VIEWSRAD - Semiurgent (Fast; most ED patients; some inpatients) 05/16/2025 1:43 AM CDT from Last 3 Months Results * DX Femur Right 2 Views (07/15/2025 9:30 AM HOST AND HOSTESS) Only the most recent of5 resultswithin the time period is included. Anatomical RegionLateralityModalityLower Extremity, Femur, Musculoskeletal RST LOS, Musculoskeletal ARZ LOS, Muskuloskeletal FLA LOSRightDigital Radiography Specimen (Source)Anatomical Location / LateralityCollection Method / Volume Collection TimeReceived Time Impressions 07/15/2025 9:51 AM HOST AND HOSTESS Some radiographic evidence for healing involving the distal one third of right femur fracture, right femur intramedullary america remains intact Narrative 07/15/2025 9:51 AM HOST AND HOSTESS EXAM: DX FEMUR RIGHT 2 VIEWS COMPARISON: [...] america remains intact Authorizing ProviderResult TypeResult StatusOmar Jose Martin Hansen APRN C.N.P., M.S.N. IMG DIAGNOSTIC IMAGING PROCEDURESFinal Result * Lactate for Sepsis with Reflex (06/17/2025 5:12 PM CDT)ComponentValueRef Range Test MethodAnalysis TimePerformed AtPathologist SignatureLactate, B1.30.5 - 2.2 mmol/L1 5:35 PM CDTMKTOSpecimen (Source)Anatomical Location / LateralityCollection Method / VolumeCollection TimeReceived TimeBlood (Blood, Venous)06/17/2025 5:12 PM CDT1 5:18 PM CDT Narrative Authorizing ProviderResult TypeResult StatusStacy Jackie Pardo APRN.N.P., D.N.P. LAB BLOOD NON ADD-ONFinal ResultPerforming OrganizationAddressCity/State/ZIP CodePhone Number [facility] [place] [address], [facility] MKTO [facility] in [place] [address] [place] [address] * (ABNORMAL) CBC with Differential, Blood (06/17/2025 5:12 PM CDT) Only the most recent of2 resultswithin the time period is included. ComponentValueRef RangeTest MethodAnalysis TimePerformed AtPathologist Signature Pwnulvppns44.7(H)11.6 - 15.0 g/dL06/17/2025 5:24 PM LFNADXYWootivzwdq68.0(H)35.5 - 44.9 %06/17/2025 5:24 PM CDTMKTOErythrocytes5.57(H)3.92 - 5.13 x10(12)/L 06/17/2025 5:24 PM EZLOUOXNIH06.078.2 - 97.9 fL06/17/2025 5:24 PM CDTMKTORBC Distrib Width12.712.2 - 16.1 %06/17/2025 5:24 PM CDTMKTOPlatelet Syfjv803970 - 371 x10(9)/L1 5:24 PM DCPHXBRLmcyuubtzb78.4(H)3.4 - 9.6 x10(9)/L 06/17/2025 5:24 PM CDTMKTONeutrophils6.071.56 - 6.45 x10(9)/L1 5:24 PM CDTMKTOLymphocytes2.770.95 - 3.07 x10(9)/L1 5:24 PM CDTMKTOMonocytes 0.85(H)0.26 - 0.81 x10(9)/L1 5:24 PM CDTMKTOEosinophils0.68(H)0.03 - 0.48 x10(9)/L1 5:24 PM CDTMKTOBasophils0.070.01 - 0.08 x10(9)/L 06/17/2025 5:24 PM CDTMKTOSpecimen (Source)Anatomical Location / Laterality Collection Method / VolumeCollection TimeReceived TimeBlood (Blood, Venous) 06/17/2025 5:12 PM CDT1 5:18 PM CDT Narrative Authorizing ProviderResult TypeResult StatusStacy Edinson Ocasio APRN, C.N.P., D.N.P. LAB BLOOD ADD-ONFinal ResultPerforming OrganizationAddressCity/State/ZIP Code Phone Number [facility] [address] [place] [address], [facility] [place] [address] [place] [address] * (ABNORMAL) CRP (C-Reactive Protein) (06/17/2025 5:12 PM CDT)ComponentValueRef RangeTest MethodAnalysis TimePerformed AtPathologist SignatureC-Reactive Protein (CRP), P6.0(H)<5.0 mg/L1 5:55 PM CDTMKTOSpecimen (Source) Anatomical Location / LateralityCollection Method / VolumeCollection Time Received TimeBlood (Blood, Venous)06/17/2025 5:12 PM CDT1 5:18 PM CDT Narrative Authorizing ProviderResult TypeResult StatusStacy Edinson Ocasio APRN, C.N.P., D.N.P. LAB BLOOD ADD-ONFinal ResultPerforming OrganizationAddressCity/State/ZIP Code Phone Number [facility] [address] [place] [address], [facility] in [place] [address] [place] [address] * Basic Metabolic Panel (06/17/2025 5:12 PM CDT) Only the most recent of3 resultswithin the time period is included. ComponentValueRef RangeTest MethodAnalysis TimePerformed AtPathologist Signature Potassium, P3.93.6 - 5.2 mmol/L1 5:55 PM CDTMKTOSodium, I913771 - 145 mmol/L1 5:55 PM CDTMKTOChloride, I20853 - 107 mmol/L1 5:55 PM CDTMKTOBicarbonate, P2622 - 29 mmol/L1 5:55 PM CDTMKTOAnion Gap, P97 - 151 5:55 PM CDTMKTOBUN (Blood Urea Nitrogen), P116 - 21 mg/dL06/17/2025 5:55 PM CDTMKTOCreatinine0.940.59 - 1.04 mg/dL06/17/2025 5:55 PM CDTMKTO Estimated GFR (eGFR)86>=60 mL/min/BSA06/17/2025 5:55 PM CDTMKTOComment: Estimated GFR calculated using the 2020 CKD_EPI creatinine equation. Calcium, Total, P9.98.6 - 10.0 mg/dL06/17/2025 5:55 PM CDTMKTOGlucose, P7570 - 140 mg/dL06/17/2025 5:55 PM CDTMKTOSpecimen (Source)Anatomical Location / LateralityCollection Method / VolumeCollection TimeReceived TimeBlood (Blood, Venous)06/17/2025 5:12 PM CDT1 5:18 PM CDT Narrative Authorizing ProviderResult TypeResult StatusStacy Edinson Ocasio APRN, C.N.P., D.N.P. LAB BLOOD ADD-ONFinal ResultPerforming OrganizationAddressCity/State/ZIP Code Phone Number [facility] [address] [place] [address], [facility] in [address] [address] * DX Knee Right 4+ Views (05/31/2025 2:42 PM CDT)Anatomical RegionLaterality ModalityLower Extremity, Knee, Musculoskeletal RST LOS, Musculoskeletal ARZ LOS, Muskuloskeletal FLA LOSRightDigital RadiographySpecimen (Source) Anatomical Location / LateralityCollection Method / VolumeCollection Time Received Time Impressions 05/31/2025 3:26 PM CDT Small effusion, no right knee fracture. Narrative 05/31/2025 3:26 PM CDT EXAM: DX KNEE RIGHT 4+ VIEWS COMPARISON: None FINDINGS: There is a small knee joint effusion. No fracture is identified. Intramedullary america is inplace in the distal femur tibia with locking [...] IMPRESSION: Small effusion, no right knee fracture. Authorizing ProviderResult TypeResult StatusOmar Bnidu Staley APRNNMarie, M.S.N. IMG DIAGNOSTIC IMAGING PROCEDURESFinal Result * (ABNORMAL) CBC without Differential (05/17/2025 6:48 AM CDT)ComponentValueRef RangeTest MethodAnalysis TimePerformed AtPathologist HtwrerdacZkwodisdxd42.0 11.6 - 15.0 g/dL05/17/2025 7:15 AM CDTMKTOComment: Result consistent with patient history. patient receiving fluids per RN will evaluate Afpoizgeam85.235.5 - 44.9 %05/17/2025 7:15 AM CDTMKTOComment: Result consistent with patient history. patient receiving fluids per RN - will evaluate Erythrocytes4.643.92 - 5.13 x10(12)/L05/17/2025 7:15 AM DFHQJPAFQY24.678.2 - 97.9 fL05/17/2025 7:15 AM CDTMKTORBC Distrib Width13.012.2 - 16.1 %05/17/2025 7:15 AM CDTMKTOPlatelet Qtjkg582445 - 371 x10(9)/L05/17/2025 7:15 AM CDTMKTO Hmlhyioobe59.0(H)3.4 - 9.6 x10(9)/L05/17/2025 7:15 AM CDTMKTOSpecimen (Source) Anatomical Location / LateralityCollection Method / VolumeCollection Time Received TimeBlood (Blood, Venous)05/17/2025 6:48 AM CDT05/17/2025 6:52 AM CDT Narrative Authorizing ProviderResult TypeResult StatusNithin Hinds P.A.-C., M.S.LAB BLOOD ADD-ONFinal ResultPerforming OrganizationAddressCity/State/ZIP CodePhone Number [facility] [address] [place] [address], [facility] MKTO [facility] [place] [address] * [place] Fluoro Less Than 1 Hour (05/16/2025 1:23 PM CDT)Specimen (Source)Anatomical Location / LateralityCollection Method / VolumeCollection TimeReceived Time Narrative [facility] - 05/16/2025 1:23 PM CDT This exam does not require a radiologist review or interpretation. Please refer to the patient's medical record on this date for clinical details. Authorizing ProviderResult TypeResult StatusRobert J Fozia OseiIMG FLUOROSCOPY PROCEDURESFinal ResultPerforming OrganizationAddressCity/State/ZIP CodePhone Number 9000 [facility] * LDA ANE ENDOTRACHEAL AIRWAY (05/16/2025 12:08 PM CDT) Narrative Mavis Haas APRN, CRNA, D.N.P. - 05/16/2025 12:08 PM CDT Mavis Haas APRN, CRNA, D.N.P. 05/16/2025 12:16 PM Airway Date/Time: 05/16/2025 12:08 PM Performed by: Mavis Haas APRN, CRNA, D.N.P. Authorized by: Annmarie Spencer M.D. ?? Patient location during procedure: OR / Procedure Area PROCEDURE DETAILS: Mask difficulty assessment: easy mask Final airway type: video laryngoscope Laryngeal Manipulation: no ?? Final best view of glottic structures - [...] ANESTHESIA Anesthesia method: anesthesia POST PROCEDURE DETAILS: ? Procedure outcome: successful ?? Notable Events: no complications Authorizing ProviderResult TypeResult Jacobo Spencer M.D.ANESTHESIA ORDERABLESFinal Result * DX Chest Portable 1 View (05/16/2025 8:51 AM CDT)Anatomical RegionLaterality ModalityChest, Thoracic RST LOS, Thoracic ARZ LOS, Thoracic FLA LOSN/ADigital RadiographySpecimen (Source)Anatomical Location / LateralityCollection Method / VolumeCollection TimeReceived Time Impressions 05/16/2025 9:02 AM CDT No acute [...] acute bony abnormality. IMPRESSION: No acute findings. Authorizing ProviderResult SarahRespineda Kapoor M.D.[facility] PROCEDURESFinal Result * ECG 12 Lead (05/16/2025 8:45 AM CDT)ComponentValueRef RangeTest MethodAnalysis TimePerformed AtPathologist SignatureVentricular Rate ECG/Edd24VDRQDMDUC Muwhzsrq186apSHJHMZBF Vztsjwgm74lxPXLEPG Lpivfvjo380uwZBDTPGU Rveykdqz375qc MUSER Vnpv40ynprnxrFCQSU Wave Klma93edypecvXKPFBilrjucz (Source)Anatomical Location / LateralityCollection Method / VolumeCollection TimeReceived Time 05/16/2025 8:45 AM CDT05/16/2025 8:56 AM CDT Impressions MUSE - 05/16/2025 8:56 AM CDT Sinus rhythm with sinus arrhythmia Otherwise normal ECG No previous ECGs available Reviewed by RUPA Cortés Narrative Procedure Note Liu Luong M.D., Ph.D. - 05/16/2025 IMPRESSION: Sinus rhythm with sinus arrhythmia Otherwise normal ECG No previous ECGs available Reviewed by RUPA Cortés Authorizing ProviderResult TypeResult StatusBam Kapoor M.D.ECG ORDERABLES Final ResultPerforming OrganizationAddressCity/State/ZIP CodePhone Number MUSE NA * Testing Location (05/16/2025 8:38 AM CDT)ComponentValueRef RangeTest Method Analysis TimePerformed AtPathologist SignatureTesting LocationF [facility] DEFAULT 05/16/2025 8:59 AM CDTMKTOSpecimen (Source)Anatomical Location / Laterality Collection Method / VolumeCollection TimeReceived KfnmMyrus00/21/2025 8:38 AM CDT05/16/2025 8:59 AM CDT Narrative Authorizing ProviderResult TypeResult StatusBam Kapoor M.D.LAB BLOOD BANK TEST ORDERABLESFinal ResultPerforming OrganizationAddressCity/State/ZIP Code Phone Number [facility] [address] [place] [address], [facility] MKTO [facility] [place] [address] [place] [address] * Type and Screen (with Reflex Antibody ID) (05/16/2025 8:38 AM CDT)Component ValueRef RangeTest MethodAnalysis TimePerformed AtPathologist SignatureABO KfrvjR0705/16/2025 9:41 AM CDTMKTORh PerlXNR7205/16/2025 9:41 AM CDTMKTOAntibody RjparbBJO03/21/2025 9:55 AM CDTMKTOType & Screen Mzeaawmxzd38/24/2025 23:59 05/16/2025 9:55 AM CDTMKTOELXM DhryccziR32/21/2025 9:55 AM CDTMKTOSpecimen (Source)Anatomical Location / LateralityCollection Method / VolumeCollection TimeReceived TimeBlood (Blood, Venous)05/16/2025 8:38 AM CDT05/16/2025 8:59 AM CDT Narrative Authorizing ProviderResult TypeResult StatusAnddanelle Kapoor M.D.LAB BLOOD BANK TEST ORDERABLESFinal ResultPerforming OrganizationAddressCity/State/ZIP Code Phone Number [facility] [address] [place] [address], [facility] [place] [address] [place] [address] * (ABNORMAL) Urinalysis with Microscopic if Indicated: Urine, Straight Catheter (05/16/2025 6:47 AM CDT)ComponentValueRef RangeTest MethodAnalysis Time Performed AtPathologist SignatureSourceUrine, Urine, Straight Catheter 05/16/2025 6:52 AM YAKUPGDDdqudpeRjajoFpvug71/21/2025 6:58 AM CDTNPRGColor Ofqlsn1005/16/2025 6:58 AM CDTNPRGComment: ----REFERENCE VALUE---- Colorless Yellow Suzette LzdcsVdpsdrisIkmwnerl75/21/2025 6:58 AM NZBPCPWCwqwavwOqolmdjsUqogmoni50/21/2025 6:58 AM CDTNPRGLeukocyte CzstmdkrLfpuiloyEasplimr18/21/2025 6:58 AM CDTNPRG ProteinNegativemg/dL05/16/2025 6:58 AM CDTNPRGComment: ----REFERENCE VALUE---- Negative Trace GlucoseNegativeNegative mg/dL05/16/2025 6:58 AM CDTNPRGKetones, QI(U)Negative Negative mg/dL05/16/2025 6:58 AM SQYQPVVGaxfagdgqZmuftdelHywyarcs16/21/2025 6:58 AM CDTNPRGpH8.5(A)5.0 - 8.009 6:58 AM CDTNPRGSpecific Gravity1.0201.001 - 1.5063605/16/2025 6:58 AM CDTNPRGUrobilinogen0.20.2 - 1.0 mg/dL05/16/2025 6:58 AM CDTNPRGSpecimen (Source)Anatomical Location / LateralityCollection Method / VolumeCollection TimeReceived TimeUrine (Urine, Straight Catheter)05/16/2025 6:47 AM CDT05/16/2025 6:51 AM CDT Narrative Authorizing ProviderResult TypeResult StatusLeobardo Jane M.D.LAB URINE ORDERABLESFinal ResultPerforming OrganizationAddressCity/State/ZIP CodePhone Number [facility] [address] [place] [phone], [facility] NPRG [address] [address] * Bacterial Culture, Aerobic + Susceptibility, Urine (05/16/2025 6:47 AM CDT) ComponentValueRef RangeTest MethodAnalysis TimePerformed AtPathologist SignatureUrine CultureNo growth after 1 day of incubation.05/17/2025 11:46 AM CDTMKTOSpecimen (Source)Anatomical Location / LateralityCollection Method / VolumeCollection TimeReceived TimeUrine (Urine, Straight Catheter)05/16/2025 6:47 AM CDT05/16/2025 4:27 PM CDTComment:Specimen Source Site: Urine Narrative Authorizing ProviderResult TypeResult StatusLeobardo Jane M.D.LAB MICROBIOLOGY - GENERAL ORDERABLESFinal ResultPerforming OrganizationAddress City/State/ZIP CodePhone Number [facility] [address] [place] [address], [facility] [place] [address] [place] [address] * Splint Application (05/16/2025 2:08 AM CDT) Narrative Leobardo Jane M.D. - 05/16/2025 2:08 AM CDT Leobardo Jane M.D. 05/16/2025 2:11 AM Splint Application Performed by: Leobardo Jane M.D. Authorized by: Leobardo Jane M.D. ?? Care team members present 1. Leobardo Jane [...] pause. PRE PROCEDURE DETAILS Procedure type: application ?? Performed by: RN Indications: traction splint. Location: Right femur. Circulation distal to injury: capillary refill < 2 sec, warm, pink and palpable pulse ?? Movement distal to injury: normal ?? Sensation distal to injury: unable to assess ?? SEDATION / ANESTHESIA Anesthesia method: none POST PROCEDURE DETAILS Procedure completed successfully: yes ?? Pain: improved Circulation distal to injury: capillary refill < 2 sec and warm Movement distal to injury: unable to assess ?? Sensation distal to injury: unable to assess ?? Authorizing ProviderResult TypeResult StatusBenjamaryann Jane M.D. PROCEDURE/MINOR SURGICAL ORDERABLESFinal Result * (ABNORMAL) Ethanol Level, Serum (05/16/2025 1:46 AM CDT)ComponentValueRef RangeTest MethodAnalysis TimePerformed AtPathologist SignatureEthanol, P49(H) <10 mg/dL05/16/2025 2:46 AM CDTNPRGSpecimen (Source)Anatomical Location / LateralityCollection Method / VolumeCollection TimeReceived TimeBlood (Blood, Venous)05/16/2025 1:46 AM CDT05/16/2025 1:50 AM CDT Narrative Authorizing ProviderResult TypeResult StatusLeobardo Jane M.D.LAB BLOOD NON ADD-ONFinal ResultPerforming OrganizationAddressCity/State/[facility] CenterPhone Number [facility] [address] [place] [address], [address] [address] * Prothrombin Time (PT) (05/16/2025 1:46 AM CDT)ComponentValueRef RangeTest MethodAnalysis TimePerformed AtPathologist SignatureProthrombin Time, P10.59.4 - 12.5 sec05/16/2025 2:27 AM CDTNPRGINR0.90.9 - 1. 2:27 AM CDTNPRG Comment: ----ADDITIONAL INFORMATION---- Standard intensity warfarin therapeutic range: 2.0 to 3.0 ?? High intensity warfarin therapeutic range: 2.5 to 3.5 Specimen (Source)Anatomical Location / LateralityCollection Method / Volume Collection TimeReceived TimeBlood (Blood, Venous)05/16/2025 1:46 AM CDT 05/16/2025 1:50 AM CDT Narrative Authorizing ProviderResult TypeResult StatusLeobardo Jane M.D.LAB BLOOD ADD-ONEdited Result - FinalPerforming OrganizationAddressCity/State/ZIP Code Phone Number [facility] [address] [place] [address], [facility] [address] [address] * hCG (Human Chorionic Gonadotropin), Quantitative, (05/16/2025 1:46 AM CDT)ComponentValueRef RangeTest MethodAnalysis TimePerformed AtPathologist SignatureHCG, Quantitative, , P<1.0<5 IU/L05/16/2025 2:51 AM CDTNPRG Specimen (Source)Anatomical Location / LateralityCollection Method / Volume Collection TimeReceived TimeBlood (Blood, Venous)05/16/2025 1:46 AM CDT 05/16/2025 2:32 AM CDT Narrative Authorizing ProviderResult TypeResult StatusLeobardo Jane M.D.LAB BLOOD ADD-ONFinal ResultPerforming OrganizationAddressCity/State/ZIP CodePhone Number [facility] [address] [place] [address], [address] [address] * (ABNORMAL) Lactate (05/16/2025 1:46 AM CDT)ComponentValueRef RangeTest Method Analysis TimePerformed AtPathologist SignatureLactate, P3.3(H)0.5 - 2.2 mmol/L 05/16/2025 2:43 AM CDTNPRGSpecimen (Source)Anatomical Location / Laterality Collection Method / VolumeCollection TimeReceived TimeBlood (Blood, Venous) 05/16/2025 1:46 AM CDT05/16/2025 1:50 AM CDT Narrative Authorizing ProviderResult TypeResult StatusLeobardo Jane M.D.LAB BLOOD NON ADD-ONFinal ResultPerforming OrganizationAddressCity/State/ZIP CodePhone Number [facility] [address] [place] [address], [address] [address] from Last 3 [place] [address] Advance Directives For more information, please contact: [phone] * Full Code (Latest Code Status on File) Date ActivatedDate InactivatedComments05/16/2025 3:04 PM05/17/2025 4:21 PMQuestion AnswerCommentsFull Code:* Discussed * Full Code Date ActivatedDate InactivatedComments05/16/2025 2:19 PM05/16/2025 3:04 PMQuestion AnswerCommentsFull Code:* Discussed Care Teams Team MemberRelationshipSpecialtyStart DateEnd Date Elsewhere, Pcp PCP - GeneralInternal Medicine05/16/25
--- OUTSIDE RECORDS SUMMARY | 2025-08-06 01:47 | XMS_ITS | Clinical Summary ---
Author Organization [facility] Address [address], [place] [address] Care Team Providers Care Electromechanical Assembler Name Role Phone Shanthi Delgadillo MD Primary Care Provider [phone] Source Comments You are receiving this document as you are listed as the primary care provider,follow-up provider, or the patient has been referred to you for consultation.This is in compliance with the Medicare andMedicaid EHR Incentive Program,which states Providers who transition their patient to another setting of careor provider of care or refers their patient to another provider of care shouldprovide summary care record for each transition of care or referral. [facility] Allergies Active AllergyReactionsCriticalityNoted DateCommentsOndansetronNausea And Qjbwunxm14/17/2020 Medications MedicationSigDispense QuantityRefillsLast FilledStart DateEnd DateStatus sertraline (ZOLOFT) 50 MG tablet Take 1 Tablet (50 mg) by mouth daily.Active sertraline (ZOLOFT) 100 MG tablet Take 1 Tablet (100 mg) by mouth daily.01/28/2020Active traZODone (DESYREL) 150 MG tablet Take 1 Tablet (150 mg) by mouth daily.04/09/2020Active sharps container Indications:Gender dysphoriaUse to dispose of needles once a week. 1 Each Active ARIPiprazole (ABILIFY) 5 MG tablet 1Active ALBUterol sulfate HFA 108 (90 Base) MCG/ACT inhaler INHALE 1 TO 2 PUFFS EVERY 4 HOURS NEEDED FOR WHEEZING OR SHORTNESS OF BREATH. 18 Each 2Active montelukast (SINGULAIR) 10 MG tablet Take 1 Tablet (10 mg) by mouth daily.06/02/2022ctive methylphenidate (RITALIN LA) 30 MG 24 hour release capsule Take 1 Capsule (30 mg) by mouth every morning.07/06/2022ctive fluticasone propionate (FLONASE) 50 MCG/ACT nasal solution Place into both nostrils.08/01/2022ctive COMBIVENT RESPIMAT 20-100 MCG/ACT inhaler 1 Puff three times a day.07/21/2023ctive SYMBICORT 160-4.5 MCG/ACT inhaler Inhale 2 Puffs two times a day.08/06/2023ctive testosterone cypionate (DEPO-TESTOSTERONE) 200 MG/ML injection Indications:Gender dysphoriaInject 0.35 mL (70 mg) intramuscularly once every week. 5 mL 12/12/2023ctive ipratropium-albuterol (DUONEB) 0.5-2.5 (3) mg/3ml nebulizer solution Indications:Moderate persistent asthma with acute exacerbation (HRC)INHALE 3 ML EVERY 4 HOURS NEEDED FOR WHEEZING 120 mL ctive NEEDLE, DISP, 18 G (MONOJECT HYPO 18GX1) 18G X 1 Indications:Gender dysphoriaTO USE TO DRAW UP WEEKLY TESTOSTERONE INJECTION. 13 Each 5Active NEEDLE, DISP, 25 G (BD DISP NEEDLES) 25G X 5/8 Indications:Gender dysphoriaTake 1 Each as instructed once a week. 25 Each 5Active NEEDLE, DISP, 25 G (BD DISP NEEDLES) 25G X 58 Indications:Gender dysphoriaTake 1 Each as instructed once a week. 25 Each 5Active Syringe, Disposable, (BD TUBERCULIN SYRINGE) 1 ML Indications:Gender dysphoriaTO USE WITH WEEKLY TESTOSTERONE INJECTIONS. 25 Each 1105Active Syringe, Disposable, (B-D SYRINGE SLIP TIP 1CC) 1 ML Indications:Gender dysphoriaTO USE WITH WEEKLY TESTOSTERONE INJECTIONS. 13 Each 5Active testosterone enanthate (DELATESTRYL) 200 MG/ML injection Indications:Gender dysphoriaINJECT 0.35ML (70MG) SUBCUTANEOUSLY WEEKLY Strength: 200 mg/mL 13 mL 5Active Active Problems ProblemNoted DateDiagnosed DatePTSD (post-traumatic stress disorder)05/31/2022 Tobacco wadfweovke33/25/2021Gender ctnxfbuqp84/22/2020TBI (traumatic brain injury)04/11/2020 Overview (04/11/2020): x3 Attention deficit hyperactivity disorder (ADHD), combined type, moderate 02/04/2020Anxiety wfggfuuz92/11/2020Moderate episode of recurrent major depressive esoufqgl14/11/2020Episodic mood fxfbuwmx89/10/2019 Encounters DateTypeDepartmentCare FbuaPvxtfhrzbvr59/15/2025Refill [facility] [address] [place] [address] Mika Santos MD Refill (testosterone enanthate (DELATESTRYL) 200 MG/ML injection)from Last 3 Months Immunizations ImmunizationAdministration DatesNext Qjc2nEOF (Gardasil)07/17/20139vHPV (Gardasil 9)09/08/2019,07/17/2013DTaP1,06/15/2005,08/28/2001,08/28/2001 ,2000,2000,2000,2000,2000,2000Flu Vac (3+ yrs)06/03/2010,06/25/2009,06/16/2008HepA Ped/Adol (1-18 yrs)11/14/2011, 07/07/2010HepA, Unspecified Febkschyiqb16/21/2012,07/07/2010HepB Ped/Adol (0-18 yrs)08/28/2001,2000,2000HepB, Unspecified Rbwmbgoqqat97/03/2002, 2000,2000Hib (ActHIB)08/28/2001,2000,2000Hib/HBV 08/28/2001,2000,2000IPV (Polio)06/15/2005,06/15/2005,03/26/2001, 03/26/2001,2000,2000,2000,2000Influenza IIV4 (Quadrivalent) 0.5mL (85455)07/20/2022,09/03/2020,09/04/2018(Deferred: Patient Refused),07/01/2018,07/01/2018,05/30/2017,05/30/2017,06/30/2016,06/30/2016, 07/17/2013,07/17/2013,06/03/2010,06/25/2009,06/16/2008Influenza, Unspecified Ixbhpouztmo96/05/2016,06/03/2010,06/25/2009,06/16/2008MCV4 (Menactra)05/30/2017, 05/30/2017,11/14/2011MMR1,06/15/2005,05/28/2001,05/28/2001Meningococcal MCV4, Unspecified Mgtbaoynqli90/21/8400EZC34 (Gxtsgrv18)0670PNHL62 (Pneumovax)1Pfizer Bivalent 12+2Pfizer Monovalent 12+ Purple Top01/12/2021,1Pneumococcal 7, PED08/28/2001,08/28/2001,2000, 2000,2000,2000,2000,2000Tdap1,06/24/2016, 11/14/2011,11/14/20116076Ninuterye41/12/2010,07/07/2010,05/28/2001,05/28/2001 Family History Medical HistoryRelationNameCommentsAnxietyBirth FatherDepressionBirth Father AnxietyBirth MotherDepressionBirth MotherAnxietyBrotherDepressionBrotherDementia Maternal GrandfatherStrokeMaternal GrandfatherAnxietyMaternal GrandmotherCancer, BreastMaternal GrandmotherCancer, ColonMaternal GrandmotherDepressionMaternal GrandmotherDiabetesMaternal GrandmotherHeart DiseaseMaternal GrandmotherHigh CholesterolMaternal GrandmotherHypertensionMaternal GrandmotherHeart Disease Paternal GrandfatherAnxietyPaternal GrandmotherRelationNameStatusCommentsBirth FatherAliveBirth MotherAliveBrotherAliveMaternal GrandfatherAliveMaternal GrandmotherAlivePaternal GrandfatherAlivePaternal GrandmotherAlive Social History Tobacco UseTypesPacks/DayYears UsedDateSmoking Tobacco: CygpkbCvqsaczbcd8Fiye: 1Smokeless Tobacco: Never Tobacco Cessation:Counseling Given: Not Answered Comments:1-2 cigarettes per day Alcohol UseStandard Drinks/WeekCommentsNever0 (1 standard drink = 0.6 oz pure alcohol)AUDIT-CAnswerDate RecordedQ1: How often do you have a drink containing alcohol?Never06/22/2020Average Number of DrinksNot on file06/22/2020Frequency of Binge DrinkingNot on file06/22/2020PHQ-2AnswerDate RecordedPHQ-2 Score3 08/08/2023Hunger Vital SignAnswerDate RecordedWithin the past 12 months, you worried that your food would run out before you got the money to buymore.Often true06/22/2025Within the past 12 months, the food you bought just didn't last and you didn't have money to get more.Often true06/22/2025PRAPARE - TransportationAnswerDate RecordedIn the past 12 months, has lack of transportation kept you from medical appointments or from getting medications? Patient xvqedafh49/28/2025In the past 12 months, has lack of transportation kept you from meetings, work, or from getting things needed for daily living?Patient bqwziskr36/28/2025Housing Stability Vital SignAnswerDate RecordedIn the last 12 months, was there a time when you were not able to pay the mortgage or rent on time?Patient qfnfiqfc82/28/2025In the past 12 months, how many times have you moved where you were living?t any time in the past 12 months, were you homeless or living in a care home (including now)?Yes06/22/2025HC Utilities AnswerDate RecordedIn the past 12 months has the [employer], gas, oil, or water company threatened to shut off services in your home?No06/22/2025 CommentsNoSex and Gender InformationValueDate RecordedSex Assigned at Mvwdke5404/11/2020 10:11 AM CDTLegal IjxVpyisy44/15/2019 5:23 PM CSTGender NyhosilaDzbx51/17/2020 10:11 AM CDTSexual TowuzwtxxgoHrknodam22/17/2020 10:11 AM CDT Last Filed Vital Signs Vital SignReadingTime TakenCommentsBlood Hqfdjgpw166/7208/08/2023 9:43 AM MUSIC CRITIC Hccjx613308/08/2023 9:43 AM URNEvlbxhwesmp83.6 ??C (97.8 ??F)08/08/2023 9:43 AM CSTRespiratory Rsxw9885 11:32 AM CDTOxygen Eddulparje32%06/15/2021 12:00 PM CDTInhaled Oxygen Concentration--Edqqmy86.8 kg (187 lb)08/08/2023 9:43 AM MUSIC CRITIC Lbggku721 cm (5' 5.75)08/28/2022 9:06 AM CSTBody Mass Index30.41008/28/2022 9:06 AM MUSIC CRITIC Plan of Treatment Health MaintenanceDue DateLast DoneCommentsCervical Cancer Screening Due 2000Hep C Screening (Preventive Services)2000Medicare Annual Wellness Visit2000Asthma ACT (score of 20 or higher)2004HIV Screening (Preventive Services)2016Asthma AMP 19-50 yo2019Chlamydia 401/12/2022, 08/30/2022, 07/01/2018COVID-19 Vaccine ( season), 01/12/2021, 12/22/2020Influenza Vaccine (#1) 511/, 09/03/2020, 07/01/2018, Additional history exists DTaP/Tdap/Td Vaccine (10 - Tdap)61, 06/24/2016, 11/14/2011, Additional history existsZoster/Shingles Vaccine (1 of 2)2050HepB Vaccine Ptdmvzwwg40/03/2002, 08/28/2001, 08/28/2001, Additional history existsHib KloplepSjgkhwnen36/03/2002, 08/28/2001, 2000, Additional history existsIPV (Polio) FyhzyghWljudshxk57/21/2005, 06/15/2005, 03/26/2001, Additional history existsVaricella HmzndehUvkxfhgvh32/12/2010, 07/07/2010, 05/28/2001, Additional history existsHepA PmetbkuYuyypxtlx36/21/2012, 11/14/2011, 07/07/2010, Additional history existsMCV4 ManpsciEeaczonay43/05/2017, 05/30/2017, 11/14/2011, Additional history existsHPV HxpgarqRjzijjylu17/14/2020, 07/17/2013, 07/17/2013Pneumococcal VaccineAged Out07/20/2022, 09/03/2020, 08/28/2001, Additional history existsNo longer eligible based on patient's age to complete this topicMeningococcal B VaccineAged OutNo longer eligible based on patient's age to complete this topic Insurance * Guarantor: Luli Wharton TypeRelation to PatientDate of BirthPhone Billing AddressPersonal/Q[address]gfT[address] [place] [address] * Guarantor: Luli Wharton TypeRelation to PatientDate of BirthPhone Billing AddressPersonal/[address]chtT[address] [place] [address] Advance Directives * Full Code (Latest Code Status on File) Date ActivatedDate FfulgqqaowxArkadfmz60/21/2021 11:11 AM06/15/2021 3:25 PM * Full Code Date ActivatedDate InactivatedComments09/03/2018 11:50 PM09/05/2018 6:26 PM Care Teams Team MemberRelationshipSpecialtyStart DateEnd Date Shanthi Delgadillo MD [address] [place] [address] PCP - GeneralObstetrics Gynecology02/12/25
--- OUTSIDE RECORDS SUMMARY | 2025-08-06 01:47 | XMS_ITS | Clinical Summary ---
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 [facility]ST[facility] ABSOLUTE MGDYNEZKWYA32278483 - 7800 cells/uL07/07/2025 3:12 AM CSTQUEST DIAGNOSTICSABSOLUTE UAQFOSABPXX3907682 - 3900 cells/uL07/07/2025 3:12 AM DIRECTOR FURNITURE [facility]ICSAB[facility] DNRHAKZXN840589 - 950 cells/uL07/07/2025 3:12 AM DIRECTOR FURNITURE [facility] PCSGMXPFANJ73254 - 500 cells/uL07/07/2025 3:12 AM DIRECTOR FURNITURE [facility] AGHHDKSQN866 - 200 cells/uL07/07/2025 3:12 AM CSTQUEST DIAGNOSTICSSpecimen (Source)Anatomical Location / LateralityCollection Method / VolumeCollection TimeReceived TimeBloodBLOOD SPECIMEN / UnknownQuest Collect / Kszuaiu3907/06/2025 2:19 PM CST07/06/2025 2:19 PM DIRECTOR FURNITURE Narrative Authorizing ProviderResult TypeResult StatusSaul Jorge Teixeira MDHEMATOLOGY Final ResultPerforming OrganizationAddressCity/State/ZIP CodePhone Number [facility] [place] [address], [place] [phone] * C-REACTIVE PROTEIN (07/06/2025 2:19 PM DIRECTOR FURNITURE)ComponentValueRef RangeTest Method Analysis TimePerformed AtPathologist SignatureC-REACTIVE PROTEIN (MG/L)4.9<8.0 mg/L109/06/2024 11:53 AM CSTQUEST DIAGNOSTICSSpecimen (Source)Anatomical Location / LateralityCollection Method / VolumeCollection TimeReceived Time BloodBLOOD SPECIMEN / UnknownQuest Collect / Woyxxdo8107/06/2025 2:19 PM DIRECTOR FURNITURE 07/06/2025 2:19 PM DIRECTOR FURNITURE Narrative Authorizing ProviderResult TypeResult StatusSaul Jorge Teixeira MDCHEMISTRYFinal ResultPerforming OrganizationAddressCity/State/ZIP CodePhone Number [facility] [address] [place] [address], * XR FEMUR 2 VIEWS RIGHT (07/06/2025 2:09 PM DIRECTOR FURNITURE)Anatomical RegionLaterality ModalityFEMURS, FEMUR RComputed RadiographySpecimen (Source)Anatomical Location / LateralityCollection Method / VolumeCollection TimeReceived Time 07/06/2025 3:29 PM DIRECTOR FURNITURE Impressions 07/06/2025 3:29 PM DIRECTOR FURNITURE Intramedullary [place] with proximal and distal screw fixation hardware noted about a fracture deformity involving the mid femoral diaphysis. Alignment is near anatomic. Hardware intact. Partial callus formation is present about the fracture. Associated healing periostitis noted. Dictated by Mika Alvarez MD @ 07/06/2025 3:29:05 PM (Electronically Signed) Narrative 07/06/2025 3:29 PM DIRECTOR FURNITURE For Patients: As a result of the Cures Act, medical imaging exams and procedure reports are released immediately into your electronic medical record. You may view this report before your referring provider. If you have questions, please contact your health care provider. Indication: Pain Technique: Two views right femur Procedure Note Mika Alvarez MD - 07/06/2025 For Patients: As a result of the Cures Act, medical imagingexams and procedure reports are released immediately into your electronicmedical record. You may view this report before your referring provider.If you have questions, please contact your health care provider. Indication: Pain Technique: Two views right femur IMPRESSION: Intramedullary [place] with proximal and distal screw fixation hardware notedabout a fracture deformity involving the mid femoral diaphysis. Alignmentis near anatomic. Hardware intact. Partial callus formation is presentabout the fracture. Associated healing periostitis noted. Dictated by Mika Alvarez MD @ 07/06/2025 3:29:05 PM (Electronically Signed) Authorizing ProviderResult TypeResult StatusSaelodia Teixeira MDGENERAL IMAGINGFinal Result * (ABNORMAL) ALK PHOSPHATASE (06/24/2025 1:42 PM CDT)ComponentValueRef RangeTest MethodAnalysis TimePerformed AtPathologist SignatureALKALINE CVUZRZOOZPR749 (H)31 - 125 U/L1 4:39 AM CDTQUEST DIAGNOSTICSSpecimen (Source) Anatomical Location / LateralityCollection Method / VolumeCollection Time Received TimeBloodBLOOD SPECIMEN / UnknownQuest Collect / Slolmwg9206/24/2025 1:42 PM CDT1 1:42 PM CDT Narrative [facility] - 06/25/2025 4:39 AM CDT AN UPDATE OR CORRECTION HAS BEEN MADE TO SEX Authorizing ProviderResult TypeResult StatusGisela Zuñiga DOCHEMISTRYFinal ResultPerforming OrganizationAddressCity/State/ZIP CodePhone Number [facility] [address] [address], * (ABNORMAL) LIPID PANEL W REFLEX MEASURED LDL (06/10/2025 3:49 PM CDT)Component ValueRef RangeTest MethodAnalysis TimePerformed AtPathologist Signature CHOLESTEROL, PKTZS279<200 mg/dL06/11/2025 5:38 AM CDTQUEST DIAGNOSTICS ZKSVUICGRGVMW949(H)<150 mg/dL06/11/2025 5:38 AM CDTQUEST DIAGNOSTICSComment: If a non-fasting specimen was collected, consider repeat triglyceride testing on a fasting specimen if clinically indicated. Rodney et al. J. of Clin. Lipidol. 2015;9:129-169. HDL MNKNLWNZETK10> OR = 40 mg/dL06/11/2025 5:38 AM CDTQUEST DIAGNOSTICSNON HDL WZHWGYILAOW612(H)<130 mg/dL (calc)06/11/2025 5:38 AM CDTQUEST DI[facility]NOST[facility] Comment: For patients with diabetes plus 1 major ASCVD risk factor, treating to a non-HDL-C goal of <100 mg/dL (LDL-C of <70 mg/dL) is considered a therapeutic option. CHOL/HDLC RATIO4.6<5.0 (calc)06/11/2025 5:38 AM CDTQUEST DIAGNOST[facility] LDL-LMXTUNEABYN728(H)mg/dL (calc)06/11/2025 5:38 AM CDTQUEST DIAGNOSTICSComment: Reference range: <100 Desirable range <100 mg/dL for primary prevention; <70 mg/dL for patients with CHD or diabetic patients with > or = 2 CHD risk factors. LDL-C is now calculated using the Ruth calculation, which is a validated novel method providing better accuracy than the Friedewald equation in the estimation of LDL-C. Servando ARORA et al. SHANNA. 2013;310(19): 0620-3519 (http://education.[employer].LifePay/faq/SQM531) Specimen (Source)Anatomical Location / LateralityCollection Method / Volume Collection TimeReceived TimeBloodBLOOD SPECIMEN / UnknownQuest Collect / Unknown 06/10/2025 3:49 PM CDT1 3:49 PM CDT Narrative Authorizing ProviderResult TypeResult StatusErin Cindy Zuñiga DOCHEMISTRYFinal ResultPerforming OrganizationAddressCity/State/ZIP CodePhone Number [facility] [place] [address], * (ABNORMAL) CBC W PLT NO DIFF (06/10/2025 3:49 PM CDT)ComponentValueRef Range Test MethodAnalysis TimePerformed AtPathologist SignatureWHITE BLOOD CELL COUNT7.93.8 - 10.8 Thousand/uL06/11/2025 4:03 AM CDTQUEST DIAGNOSTICSRED BLOOD CELL COUNT5.424.20 - 5.80 Million/uL06/11/2025 4:03 AM CDT[facility] VDKBVNOFTW04.613.2 - 17.1 g/dL06/11/2025 4:03 AM CDT[facility] DLPONTRVTJ84.938.5 - 50.0 %06/11/2025 4:03 AM CDTQUEST JAYLVZZSKEHSPV36.280.0 - 100.0 fL06/11/2025 4:03 AM CDTQUEST RGYGCXHDUIJJTP14.627.0 - 33.0 pg 06/11/2025 4:03 AM CDTQUEST PKQKWTXOKIIZUID45.932.0 - 36.0 g/dL06/11/2025 4:03 AM CDTQUEST DIAGNOSTICSComment: For adults, a slight decrease in the calculated MCHC value (in the range of 30 to 32 g/dL) is most likely not clinically significant; however, it should be interpreted with caution in correlation with other red cell parameters and the patient's clinical condition. RDW13.911.0 - 15.0 %06/11/2025 4:03 AM CDTQUEST DIAGNOSTICSPLATELET MUIMH866(H) 140 - 400 Thousand/uL06/11/2025 4:03 AM CDTQUEST DIAGNOSTICSMPV9.87.5 - 12.5 fL 06/11/2025 4:03 AM CDTQUEST DIAGNOSTICSSpecimen (Source)Anatomical Location / LateralityCollection Method / VolumeCollection TimeReceived TimeBloodBLOOD SPECIMEN / UnknownQuest Collect / Quxumjn2706/10/2025 3:49 PM CDT1 3:49 PM CDT Narrative Authorizing ProviderResult TypeResult StatusGisela Zuñiga DOHEMATOLOGYFinal ResultPerforming OrganizationAddressCity/State/ZIP CodePhone Number [facility] [place] [address], * TESTOSTERONE,TOTAL (06/10/2025 3:49 PM CDT)ComponentValueRef RangeTest Method Analysis TimePerformed AtPathologist SignatureTESTOSTERONE, TOTAL, [id number] - 1100 ng/dL06/14/2025 12:09 PM CDTQUEST DIAGNOSTICSComment: For additional information, please refer to https://education.[employer].LifePay/faq/TotalTestosteroneLCMSMS (This link is being provided for informational/educational purposes only.) (Note) This test was developed and its analytical performance characteristics have been determined by [facility]. It has not been cleared or approved by the FDA. This assay has been validated pursuant to the CLIA regulations and is used for clinical purposes. [facility] [address] [facility] [address] [facility] [address] Avelina Connors MD, PhD Specimen (Source)Anatomical Location / LateralityCollection Method / Volume Collection TimeReceived TimeBloodBLOOD SPECIMEN / UnknownQuest Collect / Unknown 06/10/2025 3:49 PM CDT1 3:49 PM CDT Narrative Authorizing ProviderResult TypeResult StatusGisela Cindy Parrer DOCHEMISTRYFinal ResultPerforming OrganizationAddressCity/State/ZIP CodePhone Number [facility] [place] [id number] [place] [address], * (ABNORMAL) LIVER PANEL (HEPATIC FUNCTION PANEL) (06/10/2025 3:49 PM CDT) ComponentValueRef RangeTest MethodAnalysis TimePerformed AtPathologist SignatureALBUMIN4.73.6 - 5.1 g/dL06/11/2025 5:38 AM CDT[facility] PROTEIN, TOTAL7.76.1 - 8.1 g/dL06/11/2025 5:38 AM CDT[facility] BILIRUBIN, TOTAL1.5(H)0.2 - 1.2 mg/dL06/11/2025 5:38 AM CDT[facility] BILIRUBIN, DIRECT0.2< OR = 0.2 mg/dL06/11/2025 5:38 AM CDT[facility] BILIRUBIN, INDIRECT1.3(H)0.2 - 1.2 mg/dL (calc)06/11/2025 5:38 AM CDTQUEST DIAGNOSTICSALKALINE LBLGOGYYCJW812(H)36 - 130 U/L1 5:38 AM CDTQUEST YSZDXBCTAUWLCK614 - 46 U/L1 5:38 AM CDTQUEST UANRSCKGZQRCCM1509 - 40 U/L1 5:38 AM CDTQUEST DIAGNOSTICSGLOBULIN3.01.9 - 3.7 g/dL (calc) 06/11/2025 5:38 AM CDTQUEST DIAGNOSTICSALBUMIN/GLOBULIN RATIO1.61.0 - 2.5 (calc)06/11/2025 5:38 AM CDTQUEST DIAGNOSTICSSpecimen (Source)Anatomical Location / LateralityCollection Method / VolumeCollection TimeReceived Time BloodBLOOD SPECIMEN / UnknownQuest Collect / Lpqruhd8506/10/2025 3:49 PM CDT 06/10/2025 3:49 PM CDT Narrative Authorizing ProviderResult TypeResult StatusGisela Zuñiga DOCHEMISTRYFinal ResultPerforming OrganizationAddressty/State/ZIP CodePhone Number [facility] [address] [place] [address], * ANTI HCV [09798.2] (05/05/2025 2:34 PM CDT)ComponentValueRef RangeTest Method Analysis TimePerformed AtPathologist SignatureHEPATITIS C ANTIBODYNON-REACTIVE NON-FPQXTTRH54/11/2025 2:48 PM CDTQUEST DIAGNOSTICSComment: HCV antibody was non-reactive. There is no laboratory evidence of HCV infection. In most cases, no further action is required. However, if recent HCV exposure is suspected, a test for HCV RNA (test code 13554) is suggested. For additional information please refer to http://education.Sportmeets/faq/ZTK80r8 (This link is being provided for informational/ educational purposes only.) Specimen (Source)Anatomical Location / LateralityCollection Method / Volume Collection TimeReceived TimeBloodBLOOD SPECIMEN / UnknownQuest Collect / Unknown 05/05/2025 2:34 PM CDT05/05/2025 2:34 PM CDT Narrative Authorizing ProviderResult TypeResult StatusVika Delacruzzabeerik Stovall MDSEND OUTSFinal ResultPerforming OrganizationAddressCity/State/ZIP CodePhone Number [facility] [address] [place] [address], [place] [phone] * ANTI HIV 1/2 [63830.0] (05/05/2025 2:34 PM CDT)ComponentValueRef RangeTest MethodAnalysis TimePerformed AtPathologist SignatureHIV FINAL INTERPRETATOIN HIV YUNTJAMD01/11/2025 2:48 PM CDTQUEST DIAGNOSTICSComment: HIV-1 antigen and HIV-1/HIV-2 antibodies were not detected. There is no laboratory evidence of HIV infection. HIV AG/AB, 4TH MHADFZ-PONFKNXCWJB-MVNBKTGE34/11/2025 2:48 PM CDTQUEST DIAGNOSTICSSpecimen (Source)Anatomical Location / LateralityCollection Method / VolumeCollection TimeReceived TimeBloodBLOOD SPECIMEN / UnknownQuest Collect / Inbjrui2305/05/2025 2:34 PM CDT05/05/2025 2:34 PM CDT Narrative Authorizing ProviderResult TypeResult StatusKatherjersey Stovall MDSEND OUTSFinal ResultPerforming OrganizationAddressCity/State/ZIP CodePhone Number [facility] [address] [address], * [employer] THIN PREP PAP SCREEN IMAGED (04/21/2025 1:57 PM CDT)ComponentValueRef RangeTest MethodAnalysis TimePerformed AtPathologist SignatureCase Report Gynecologic Cytology Report ? Case: [id number] ? Authorizing Provider: ??Vika Stovall ?Collected: ? 04/21/2025 1357 ? MD Alysha ? Ordering Location: ? [facility] ?? Received: ?04/21/2025 1459 ? Clinic ? First Screen: ?Suzette Bean ? Specimen: ?[employer] ThinPrep Vial Screening, Cervical ? 04/29/2025 8:32 AM [facility] INTERPRETATION/RESULTNEGATIVE FOR INTRAEPITHELIAL LESION OR MALIGNANCY (NIL) (none)04/29/2025 8:32 AM [facility] at 0832 CDTSPECIMEN ADEQUACY Satisfactory for evaluation No endocervical component seen04/29/2025 8:32 AM [facility]- CENTRAL LABORATORYDate of LMP 8:32 AM [facility]-CENTRAL LABORATORYLast Pap Date 8:32 AM [facility]-CENTRAL LABORATORYLast Pap TfapxyBQW33/04/2025 8:32 AM CDT [facility]-CENTRAL LABORATORYAbnormal Pap or [place] Bx in last 5 eocdzQo4904/29/2025 8:32 AM [facility] Menstrual StatusHormonally Camsahiufl21/04/2025 8:32 AM [facility]-CENTRAL LABORATORYColp Bx Done SbeimTy7704/29/2025 8:32 AM [facility]AL LABORATORYAdditional InformationNone given04/29/2025 8:32 AM [facility]-CENTRAL LABORATORYComment: Cytology is screened at [facility] - [address], [place] [address] and [facility] - [address], [place] [address] and [facility] - [address] [place] [address] Interpreted at [facility] - [address] [place] [address] Automated VkiwvsZjivtcvqal80/04/2025 8:32 AM [facility] LABORATORYComment:Specimen processed successfully by automated hand candy dipper device, Score The BoardPrep Imaging System, [employer]NoteThe pap test is a screening technique, not a diagnostic procedure. It is used primarily to screen for squamous cancers and precursor lesions. Published studies have shown that it is subject to both false negative and false positive results. The pap test should not be used as the sole means to diagnose or exclude pre-malignant and malignant lesions. 04/29/2025 8:32 AM [facility] LABORATORYSpecimen (Source)Anatomical Location / LateralityCollection Method / VolumeCollection TimeReceived TimeOther (Cervical)Non-Blood / Qccalzo1804/21/2025 1:57 PM CDT 04/21/2025 2:59 PM CDT Narrative Authorizing ProviderResult TypeResult StatusKatherjersey Stovall MD PATHOLOGY/CYTOLOGYFinal ResultPerforming OrganizationAddressCity/State/ZIP Code Phone Number [facility] [address] [place] [address], [place] from Last 3 Months or Most Recently Relevant to Health Maintenance Insurance * Guarantor: [employer]Account TypeRelation to PatientDate of BirthPhone Billing AddressThird Republican XzkmzovghOufjx04/01/2001 Attn: Candace [address] [place] [address] Advance Directives * Full Code (Latest Code Status on File) Date ActivatedDate InactivatedComments09/16/2015 11:02 PM09/21/2015 6:53 PM Care Teams Team MemberRelationshipSpecialtyStart DateEnd Date Gisela Zuñiga DO [address] [place] [address] PCP - GeneralFamily Practice02/16/25 Liya No NP 12/31/17 Capo Busby MD [address] [facility] [address] [place] [address] PulmonologyPulmonary Medicine02/07/23
--- OUTSIDE RECORDS SUMMARY | 2025-08-06 01:47 | XMS_ITS | Encounter Summary ---
Author Organization [facility] Address [address] [place] [address] Care Team Providers Care Healthcare Recruiter Name Role Phone Elsewhere, Pcp Primary Care Provider Unavailabl e Reason for Visit * ReasonOnset DateCommentsMed Bnrmdd0705/24/2025 Encounter Details DateTypeDepartmentCare Team (Latest Contact Info)Kujqpcvgvgs87/29/2025Refill Department of Orthopedic Surgery in [place], [place] [address] [place] [phone] Nithin Hinds, Abhi., M.S. [address] [place] [phone] Med Refill Social History Tobacco UseTypesPacks/DayYears UsedDateSmoking Tobacco: Every [...] before you got the money to buymore.Never true09/21/2025Within the past 12 months, the food you [...] RecordedIn the past 12 months has the [employer], gas, oil, or water Imcompany threatened to shut off services in your home?No05/16/2025Housing StabilityAnswerDate RecordedWhat is your living situation today?I have a steady place to live05/16/2025CommentsNoSex and Gender InformationValueDate RecordedSex Assigned at JzwpaMqgugf01/21/2025 2:33 AM CDTLegal SeaZqpesl85/03/2017 10:03 PM CSTGender IdentityTransgender Male 05/16/2025 2:33 AM CDTSexual OrientationNot on filedocumented as of this encounter Plan of Treatment DateTypeDepartmentCare Team (Latest Contact Info)Mbobrpodpgj10/16/2025 12:45 PM CSTClinical Support Department of Physical Medicine and Rehabilitation in [place], [place] [address] [place] [phone] Andrew Hansen APRN, C.N.P., M.S.N. [address] [place] [phone] Abdulkadir Jesus P.T., D.P.T. [address] [place] [phone] 08/24/2025 1:30 PM CSTClinical Support Department of Physical Medicine and Rehabilitation in [place], [place] [address] [place] [phone] Andrew Hansen APRN, C.N.P., M.S.N. [address] [place] [phone] Abdulkadir Jesus P.T., Donato.P.T. [address] [place] [phone] 09/14/2025 10:20 AM CSTAppointment Department of Radiology, [facility], in [address] [phone] Andrew Hansen APRN, C.NMarie, M.S.N. [address] [place] [phone] Discharge Disposition: Home or Self Care09/14/2025 10:45 AM CSTOffice Visit Department of Orthopedic Surgery in [address] [phone] Andrew Hansen APRN, C.NAngela., M.S.N. [address] [place] [phone] documented as of this encounter Visit Diagnoses Not on filedocumented in this encounter Care Teams Team MemberRelationshipSpecialtyStart DateEnd Date Elsewhere, Pcp PCP - GeneralInternal Medicine05/16/25documented as of this encounter
[2025-08-06 02:11] VITALS: BP 149/81; PULSE 100; RESP 21; TEMP 36.8; O2SAT 95; BMI 26.6
--- NOTE | 2025-08-06 02:28 | CRLHL7_ITS ---
For Patients: As a result of the Century Cures Act, medical imaging exams and procedure reports are released immediately into your electronic medical record. You may view this report before your referring provider. If you have questions, please contact your health care provider. INDICATION: Shortness of breath, cough for 2 weeks. TECHNIQUE: Chest 2 views. COMPARISON: 05/06/2025. FINDINGS: Cardiovascular and mediastinum: Heart size and vasculature are normal in caliber and appearance. Lungs and pleural spaces: No focal consolidation, pleural effusion, or pneumothorax. Bones and soft tissues: Unremarkable for age. IMPRESSION: No evidence of an acute pulmonary process. Dictated by Amando Corral MD @ 08/06/2025 2:49:02 AM (Electronically Signed)
--- NOTE | 2025-08-06 02:29 | ED.GENADULT ---
HPI - General Adult General Chief complaint: Shortness of Breath/Dyspnea Stated complaint: wheezing Time Seen by Provider: 08/06/25 02:02 History of Present Illness HPI narrative: Patient is a 25-year-old gentleman with history of asthma who recently finished steroid course for bronchitis set 2 days ago. Since that time his wheezing has worsened. He has had no fevers no chills no night sweats no cough. He does smoke and use marijuana as well as vapes. He has had no sick contacts otherwise been in his usual state of health. Related Data Home Medications ?Medication ?Instructions ?Recorded ?Confirmed montelukast 10 mg tablet 10 mg PO DAILY 04/02/22 08/06/25 testosterone enanthate 200 mg/mL 80 mg subcut Q7D 04/02/22 08/06/25 intramuscular oil ibuprofen 200 mg PRN 08/15/24 06/17/25 aripiprazole 15 mg tablet 15 mg PO DAILY 08/16/24 08/06/25 dextroamphetamine-amphetamine 15 1 tab PO DAILY 08/16/24 08/06/25 mg tablet dextroamphetamine-amphetamine ER 1 cap PO BID 08/16/24 06/17/25 10 mg 24hr capsule,extend release ipratropium 20 mcg-albuterol 100 1 puff inhalation TID 08/16/24 08/06/25 mcg/actuation mist for inhalation (Combivent Respimat) levalbuterol tartrate 45 2 puff inhalation Q4H PRN wheezing 08/16/24 08/06/25 mcg/actuation aerosol inhaler sertraline 100 mg tablet 150 mg PO DAILY 08/16/24 08/06/25 trazodone 150 mg tablet 150 mg PO QPM 08/28/24 08/06/25 acetaminophen 500 mg tablet 1,000 mg PO Q6H 08/06/25 08/06/25 buspirone 15 mg tablet 15 mg PO BID 08/06/25 08/06/25 Previous Rx's ?Medication ?Instructions ?Recorded ipratropium 0.5 mg-albuterol 3 mg 3 ml inhalation Q6H PRN #90 mL 06/09/22 (2.5 mg base)/3 mL nebulization soln albuterol sulfate 90 mcg/actuation 2 puff inhalation Q4-6H PRN 01/14/24 aerosol inhaler shortness of breath or wheezing #8.5 grams doxycycline hyclate 100 mg tablet 100 mg PO BID #14 tabs 06/18/25 prednisone 20 mg tablet 20 mg PO BID #10 tabs 08/06/25 Allergies Allergy/AdvReac Type Severity Reaction Status Date / Time ondansetron (From Zofran) AdvReac Mild Vomiting Verified 08/06/25 02:23 Review of Systems Status of ROS: Reports: 10 or more systems reviewed and unremarkable except as noted in History and below [facility] Medical History Hypokalemia ?E87.6 - Hypokalemia (ICD-10) Vapes nicotine containing substance ?Z72.0 - Tobacco use (ICD-10) Moderate episode of recurrent major depressive disorder ?F33.1 - Major depressive disorder, recurrent, moderate (ICD-10) Fracture of occipital bone with loss of consciousness ?S02.119A - Unspecified fracture of occiput, initial encounter for closed fracture (ICD-10) ?S06.9X9A - Unspecified intracranial injury with loss of consciousness of unspecified duration, initial encounter (ICD-10) Disruptive mood dysregulation disorder ?F34.81 - Disruptive mood dysregulation disorder (ICD-10) Suicidal ideation (10/04/15) ?R45.851 - Suicidal ideations (ICD-10) 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) ?F06.30 - Mood disorder due to known physiological condition, unspecified (ICD-10) ?S06.9XAS - Unspecified intracranial injury with loss of consciousness status unknown, sequela (ICD-10) Colitis due to Clostridium difficile ?A04.72 - Enterocolitis due to Clostridium difficile, not specified as recurrent (ICD-10) ADHD ?F90.9 - Attention-deficit hyperactivity disorder, unspecified type (ICD-10) Depression ?F32.A - Depression, unspecified (ICD-10) Anxiety ?F41.9 - Anxiety disorder, unspecified (ICD-10) Breast removal, prophylactic ?Z40.01 - Encounter for prophylactic removal of breast (ICD-10) Traumatic brain injury ?S06.9XAA - Unspecified intracranial injury with loss of consciousness status unknown, initial encounter (ICD-10) Surgical History S/P mastectomy, bilateral (~04/2021) ?Z90.13 - Acquired absence of bilateral breasts and nipples (ICD-10) [place] teeth removed ?K08.409 - Partial loss of teeth, unspecified cause, unspecified class (ICD-10) Family History Maternal Grandmother Breast cancer Depression Heart disease Paternal Grandfather Heart disease Thyroid cancer Social History Narrative: Unemployed. Quit smoking cigarettes in 2017, Vapes. Rare alcohol use. Frequent marijuana use. Admitted to nurse that he has done fentanyl and crushed and snorted his Adderall in the past week. What is your current living situation?: I presently have a place to live Problems where you live: no known problems Problems where you live details: n/a In the past 12 months, utilities in danger of being shut off: no In past 12 months, lack of transportation kept you from medical appts, meetings, work, or getting things needed for daily living: no In the past 12 mos, have been you worried that your food would run out before you had money to buy more?: never true In the past 12 mos, the food you bought just didn't last and you didn't have money to buy more?: never true Highest level of school completed/degree received: high school graduate Smoking Status: Current some day smoker Do you use any of these nicotine containing products: E-Cigarettes and Vaping Products Nicotine containing products detail: Frequently Vapes Second hand tobacco smoke exposure: Yes How often do you have a drink containing alcohol: monthly or less How many standard drinks containing alcohol do you have on a typical day: 1 or 2 How often do you have six or more drinks on one occasion: Never AUDIT-C Alcohol total score: 1 Non-prescribed substance use: marijuana (any form) Non-prescribed substance use details: medical marijuana card Caffeine: No (Rarely) How often does anyone, including family, friends and others, physically hurt you: never How often does anyone, including family, friends and others, insult or talk down to you: rarely How often does anyone, including family, friends and others, threaten you with harm: never How often does anyone, including family, friends and others, scream or curse at you: rarely Do you think of yourself as: straight/heterosexual Gender Identity: male service: No Health Related Social Needs: Other personal risk factors, not elsewhere classified (Z91.89) Exam Narrative: Exam Narrative: EXAM GENERAL: Patient appears comfortable and well. EYES: No scleral icterus. ENT: Tympanic membranes and oropharynx normal. THYROID: no thyroid nodules or thyromegaly. LYMPH: No supraclavicular or cervical lymphadenopathy. SKIN: Visible skin seen during exam normal or with benign process only. EXT: No dependent lower extremity pedal edema. HEART: Regular rate and rhythm with no murmurs, rubs, or gallops. LUNGS: Significant x-ray wheezes auscultated. Bilaterally. ABD: Soft, non tender, non distended. PSYCH: Good eye contact, speech is not pressured. Const: Vital Signs, click to edit/add: Vital Signs - 24 hr 08/06/25 02:11 Temperature 98.2 F Pulse Rate [Right Pulse Oximeter] 100 Respiratory Rate 21 Blood Pressure [Ri ght Upper Arm] 149/81 H Pulse Oximetry 95 Oxygen Delivery Me thod Room Air Course Course ED Course: DuoNeb given chest x-ray pending. Vital Signs Vital signs: Initial Vital Signs Temperature 98.2 F 08/06/25 02:11 Temperature Source Temporal Artery Scan 08/06/25 02:11 Pulse Rate 100 08/06/25 02:11 Pulse Rhythm Regular 08/06/25 02:11 Respiratory Rate 21 08/06/25 02:11 Blood Pressure 149/81 H 08/06/25 02:11 Blood Pressure Mean 103 08/06/25 02:11 Pulse Oximetry 95 08/06/25 02:11 Oxygen Delivery Method Room Air 08/06/25 02:11 Vital Signs Temperature 98.2 F 08/06/25 02:11 Pulse Rate 100 08/06/25 02:11 Respiratory Rate 21 08/06/25 02:11 Blood Pressure 149/81 H 08/06/25 02:11 Pulse Oximetry 95 08/06/25 02:11 Oxygen Delivery Method Room Air 08/06/25 02:11 Temperature 98.2 F 08/06/25 02:11 Pulse Rate 100 08/06/25 02:11 Respiratory Rate 21 08/06/25 02:11 Blood Pressure 149/81 H 08/06/25 02:11 Pulse Oximetry 95 08/06/25 02:11 Oxygen Delivery Method Room Air 08/06/25 02:11 Medications Administered Medications: Generic Name Dose Route Start Last Admin Trade Name Freq PRN Reason Stop Dose Admin Albuterol/Ipratropium 1 neb 08/06/25 02:28 08/06/25 02:44 Iprat-Albut 0.5-2.5 Mg/3 Ml Neb IH 08/06/25 02:29 1 neb ONCE ONE Administration Medical Decision Making MDM Narrative Medical decision making narrative: Patient is a 25-year-old asthmatic who comes in tonight wheezing with normal oxygen saturation. He has no signs of acute infection and I did not do any viral swabs. I did do a chest x-ray and find that to be unremarkable. We did given DuoNeb and prednisone 40 mg. Will discharge him with prednisone for the next 5 days with outpatient follow-up for asthma exacerbation. He is counseled on smoking cessation. Discharge Plan Discharge Clinical Impression: Asthma Qualifiers: Asthma severity: moderate Asthma persistence: persistent Asthma complication type: with acute exacerbation Qualified Code(s): J45.41 - Moderate persistent asthma with (acute) exacerbation Patient Disposition: Home, Self-Care Condition: Stable Instructions: Asthma (ED) Additional Instructions: Continue current medications. Prednisone as directed Follow-up with your doctor as needed. Activity Level: No Restrictions Discharge Diet: Regular Prescriptions: New prednisone 20 mg tablet 20 mg PO BID Qty: 10 0RF No Action albuterol sulfate 90 mcg/actuation HFA aerosol inhaler 2 puff inhalation Q4-6H PRN (Reason: shortness of breath or wheezing) Qty: 8.5 3RF montelukast 10 mg tablet 10 mg PO DAILY testosterone enanthate 200 mg/mL oil 80 mg subcut Q7D Rx Instructions: FRIDAYS ipratropium-albuterol 0.5 mg-3 mg(2.5 mg base)/3 mL solution for nebulization 3 ml inhalation Q6H PRNQty: 90 1RF ibuprofen 200 mg PRN aripiprazole 15 mg tablet 15 mg PO DAILY dextroamphetamine-amphetamine 15 mg tablet 1 tab PO DAILY dextroamphetamine-amphetamine 10 mg capsule,extended release 24hr 1 cap PO BID Combivent Respimat 20-100 mcg/actuation mist 1 puff inhalation TID sertraline 100 mg tablet 150 mg PO DAILY levalbuterol tartrate 45 mcg/actuation HFA aerosol inhaler 2 puff INHALATION Q4H PRN (Reason: wheezing) trazodone 150 mg tablet 150 mg PO QPM doxycycline hyclate 100 mg tablet 100 mg PO BID Qty: 14 0RF acetaminophen 500 mg tablet 1,000 mg PO Q6H buspirone 15 mg tablet 15 mg PO BID Follow Up/Referrals: Gisela Zuñiga DO [Primary Care Provider, Family Practice] Stand Alone Forms: [facility]
[2025-08-06] MEDS: IPRAT-ALBUT 0.5-2.5 MG/3 ML NEB 1 NEB IH (02:44)
[2025-08-06 03:11] LABS: PCR FLU A Negative PCR FLU A (Negative); PCR FLU B Negative PCR FLU B (Negative); PCR RSV Negative PCR RSV (Negative); SARS PCR* Negative SARS-CoV-2 (Negative)
== END 2025-08-06 03:02 | disposition home or self-care (01) ==
PROVIDERS: Emergency Provider Internal Medicine; PCP Family Medicine
DX: J45.41 Moderate persistent asthma with (acute) exacerbation (principal)
CPT/HCPCS: 71046; 87631; 94640; 94761; 99283; 99284; J7512

== ENCOUNTER 2025-08-09 15:19 | Emergency (ER) | payer MEDICARE, MEDICAID, SELFPAY ==
--- OUTSIDE RECORDS SUMMARY | 2025-07-15 09:15 | XMS_ITS | Encounter Summary ---
Author Organization [facility] Address [address] [place] [address] Care Team Providers Care Head Animal Trainer Name Role Phone Elsewhere, Pcp Primary Care Provider Unavailabl e Reason for Referral * Outpatient (Routine) - ClosedSpecialtyDiagnoses / ProceduresReferred By ContactReferred To Contact Diagnoses Pain Knee Right Procedures DX Femur Right 2 Views Andrew Hansen APRN, C.N.P., M.S.N. [facility] [place] [address] Phone: tel: fax: [facility] Referral IDStatusReasonStart DateExpiration DateVisits RequestedVisits [id number]/6/20251/6/202711 IPAN MOLDER Reason for Visit * Outpatient (Routine) - ClosedSpecialtyDiagnoses / ProceduresReferred By ContactReferred To Contact Diagnoses Pain Knee Right Procedures DX Femur Right 2 Views Andrew Hansen APRN C.N.P., M.S.N. [address] [place] [address] Phone: tel: fax: [facility] Referral IDStatusReasonStart DateExpiration DateVisits RequestedVisits [id number]/6/20251/6/202711 Encounter Details DateTypeDepartmentCare Team (Latest Contact Info)Fmnriceomjj73/20/2025 9:15 AM MARZIPAN MOLDER - 07/15/2025 11:59 PM CSTHospital Encounter Department of Radiology, [facility], in [place], [place] [address] [place] [address] Andrew Hansen APRN C.N.PArik, M.S.N. [address] [place] [phone] Pain Knee Right Discharge Disposition: Home or Self Care Social History Tobacco UseTypesPacks/DayYears UsedDateSmoking Tobacco: Every DayCigarettes Smokeless Tobacco: CurrentHumiliation, Afraid, Rape, and Kick questionnaire AnswerDate RecordedWithin the last year, have you been afraid of your partner or ex-partner?No05/16/2025Within the last year, have you been humiliated or emotionally abused in other ways by your partner or ex-partner?No05/16/2025 Within the last year, have you been kicked, hit, slapped, or otherwise physically hurt by your partner or ex-partner?05/16/2025Within the last year, have you been raped or forced to have any kind of sexual activity by your part ner or ex-partner?05/16/2025Hunger Vital SignAnswerDate RecordedWithin the past 12 months, you worried that your food would run out before you got the money to buymore.Never true05/16/2025Within the past 12 months, the food you bought just didn't last and you didn't have money to get more.Never true 05/16/2025PRAPARE - TransportationAnswerDate RecordedIn the past 12 months, has lack of transportation kept you from medical appointments or from getting medications?No05/16/2025In the past 12 months, has lack of transportation kept you from meetings, work, or from getting things needed for daily living?No 05/16/2025HC UtilitiesAnswerDate RecordedIn the past 12 months has the electric, gas, oil, or water company threatened to shut off services in your home?No05/16/2025Housing StabilityAnswerDate RecordedWhat is your living situation today?I have a steady place to live05/16/2025CommentsNoSex and Gender InformationValueDate RecordedSex Assigned at IkopuIkvyvu58/21/2025 2:33 AM CDTLegal AbpCuqnqc17/03/2017 10:03 PM CSTGender IdentityTransgender Male 05/16/2025 2:33 AM CDTSexual OrientationNot on filedocumented as of this encounter Medications at Time of Discharge MedicationSigDispense QuantityRefillsLast FilledStart DateEnd Date albuterol 90 mcg/actuation inhaler Inhale 2 puffs 4 (four) times a day as needed.09/11/2021 amphetamine-dextroamphetamine (AdderalL XR) 10 mg 24 hr capsule Take 10 mg by mouth every morning.08/16/2024 amphetamine-dextroamphetamine (AdderalL XR) 5 mg 24 hr capsule Take 5 mg by mouth every evening.04/30/2025 ARIPiprazole (Abilify) 20 mg tablet Take 20 mg by mouth daily.09/01/2020 budesonide-formoteroL (Symbicort) 160-4.5 mcg/actuation inhaler Inhale 2 puffs 2 (two) times a day as needed.08/06/2023 busPIRone (BuSpar) 15 mg tablet Take 15 mg by mouth 2 (two) times a day. cyclobenzaprine (FlexeriL) 5 mg tablet Take 1 tablet (5 mg total) by mouth 3 (three) times a day as needed for muscle spasms. 30 tablet 07/15/2025 diclofenac sodium (Voltaren) 1 % gel Apply 4 g topically 4 (four) times a day as needed (to areas of arthritic pain). Apply to right knee. 100 g fluticasone propionate (Flonase) 50 mcg/actuation nasal spray Administer 1 spray into each nostril daily.08/01/2022 hydrOXYzine (Atarax) 25 mg tablet Take 50 mg by mouth at bedtime as needed (sleep).04/30/2025 ipratropium-albuteroL (Combivent Respimat) 20-100 mcg/actuation inhaler Inhale 1 puff 3 (three) times a day.07/21/2023 ipratropium-albuteroL (DuoNeb) 0.5-2.5 mg/3 mL nebulizer solution Inhale 3 mL every 4 (four) hours as needed.12/19/2023 montelukast (Singulair) 10 mg tablet Take 10 mg by mouth at bedtime.06/02/2022 sennosides-docusate sodium (Senokot-S) 8.6-50 mg per tablet Take 1 tablet by mouth at bedtime as needed for constipation. 30 tablet 05/17/2025 sertraline (Zoloft) 100 mg tablet Take 150 mg by mouth daily.01/28/2020 testosterone cypionate (Depo-Testosterone) 200 mg/mL injection Inject 70 mg intramuscularly over 168 hr.4documented as of this encounter Plan of Treatment DateTypeDepartmentCare Team (Latest Contact Info)Oyizrtrtxep61/16/2025 12:45 PM CSTClinical Support Department of Physical Medicine and Rehabilitation in [place] [address] [place] [address] Andrew Hansen APRN, C.N.P., M.S.N. [address] [place] [phone] Abdulkadir Jesus, P.T., D.P.T. [address] [place] [phone] 08/24/2025 1:30 PM CSTClinical Support Department of Physical Medicine and Rehabilitation in [place], [place] [address] [place] [address] Andrew Hansen APRN, C.N.P., M.S.N. [address] [place] [address] Abdulkadir Jesus, P.T., D.P.T. [address] [place] [phone] 09/14/2025 10:20 AM CSTAppointment Department of Radiology, [facility], in [address] [phone] Andrew Hansen APRN, C.N.P., M.S.N. [address] [place] [phone] Discharge Disposition: Home or Self Care09/14/2025 10:45 AM CSTOffice Visit Department of Orthopedic Surgery in [address] [phone] Andrew Hansen APRN, C.N.P., M.S.N. [address] [place] [phone] documented as of this encounter Procedures Procedure NamePriorityDate/TimeAssociated DiagnosisCommentsDX FEMUR RIGHT 2 VIEWSRAD - Routine (most inpatients and all outpatients)07/15/2025 9:30 AM MARZIPAN MOLDER Pain Knee Right documented in this encounter Results * DX Femur Right 2 Views (07/15/2025 9:30 AM MARZIPAN MOLDER)Anatomical RegionLaterality ModalityLower Extremity, Femur, Musculoskeletal RST LOS, Musculoskeletal ARZ LOS, Muskuloskeletal FLA LOSRightDigital RadiographySpecimen (Source) Anatomical Location / LateralityCollection Method / VolumeCollection Time Received Time Impressions 07/15/2025 9:51 AM MARZIPAN MOLDER Some radiographic evidence for healing involving the distal one third of right femur fracture, right femur intramedullary america remains intact Narrative 07/15/2025 9:51 AM MARZIPAN MOLDER EXAM: DX FEMUR RIGHT 2 VIEWS COMPARISON: 06/17/2025 FINDINGS: Stable postoperative changes of a right femur intramedullary nail crossing an ununited distal one third of right femur fracture with some fluffy callus formation crossing the fracture line on today's exam. Bone mineralization is decreased. The visualized joint spaces are preserved. Procedure Note Cory Willoughby M.D. - 07/15/2025 EXAM: DX FEMUR RIGHT 2 VIEWS COMPARISON: 06/17/2025 FINDINGS: Stable postoperative changes of a right femur intramedullarynail crossing an ununited distal one third of right femur fracture withsome fluffy callus formation crossing the fracture line on today's exam.Bone mineralization is decreased. The visualized joint spaces arepreserved. IMPRESSION: Some radiographic evidence for healing involving the distal one third ofright femur fracture, right femur intramedullary america remains intact Authorizing ProviderResult TypeResult StatusOmar Jackie Staley APRN.N.P., M.S.N. IMG DIAGNOSTIC IMAGING PROCEDURESFinal Result documented in this encounter Visit Diagnoses Diagnosis Pain Knee Right documented in this encounter Care Teams Team MemberRelationshipSpecialtyStart DateEnd Date Elsewhere, Pcp PCP - GeneralInternal Medicine05/16/25documented as of this encounter
--- OUTSIDE RECORDS SUMMARY | 2025-07-15 10:00 | XMS_ITS | Encounter Summary ---
Author Organization [facility] Address [address] [place] [address] Care Team Providers Care Land Use Planner Name Role Phone Elsewhere, Pcp Primary Care Provider Unavailabl e Reason for Referral * Outpatient (Routine) - AuthorizedSpecialtyDiagnoses / ProceduresReferred By ContactReferred To Contact Diagnoses Fracture Lower End Femur Other Closed Initial Right (HCC) Procedures DX Femur Right 2 Views Andrew Hansen APRN C.N.P., M.S.N. [address] [place] [address] Phone: tel: fax: [facility] Referral IDStatusReasonStart DateExpiration DateVisits RequestedVisits [id number]/20/20252/20/202711 S TENDER * Outpatient (Routine) - AuthorizedSpecialtyDiagnoses / ProceduresReferred By ContactReferred To ContactOrthopedic Surgery Andrew Hansen APRN C.N.P., M.S.N. [address] [place] [address] Phone: tel: fax: [facility] Referral IDStatusReasonStart DateExpiration DateVisits RequestedVisits [id number]/20/20255/22/202711 S TENDER * Physical Therapy (Routine) - AuthorizedSpecialtyDiagnoses / ProceduresReferred By ContactReferred To Contact Diagnoses Fracture Lower End Femur Other Closed Initial Right (HCC) Procedures PT Evaluate and treat Andrew Hansen APRN, C.N.PArik, M.S.N. [address] [place] [phone] Phone: tel: fax: [facility] Referral IDStatusReasonStart DateExpiration DateVisits RequestedVisits [id number]/20/20252/[id number] S TENDER Reason for Visit * ReasonCommentsFollow-upRight femurPost-opRight femur * Outpatient (Routine) - ClosedSpecialtyDiagnoses / ProceduresReferred By ContactReferred To ContactOrthopedic Surgery Andrew Hansen APRN, C.N.PArik, M.S.N. [address] [place] [phone] Phone: tel: fax: [facility] Region Referral IDStatusReasonStart DateExpiration DateVisits RequestedVisits [id number]/6/20254/7/202711 Encounter Details DateTypeDepartmentCare Team (Latest Contact Info)Icyysadyurr42/20/2025 10:00 AM CSTOffice Visit Department of Orthopedic Surgery in [address] [phone] Andrew Hansen APRN, C.N.P., M.S.N. [address] [place] [phone] Fracture Lower End Femur Other Closed [...] RecordedIn the past 12 months has the [employer], gas, oil, or water [employer] threatened to shut off services in your home?05/16/2025Housing StabilityAnswerDate RecordedWhat is your living situation today?I have a steady place to live05/16/2025CommentsNoSex and Gender InformationValueDate RecordedSex Assigned at GstnmYsadue11/21/2025 2:33 AM CDTLegal GmwDrjiul72/03/2017 10:03 PM CSTGender IdentityTransgender Male 05/16/2025 2:33 AM CDTSexual OrientationNot on filedocumented as of this encounter Last Filed Vital Signs Vital SignReadingTime TakenCommentsBlood Pressure--Pulse--Aaywqydlegd04.9 ??C (96.6 ??F)07/15/2025 9:50 AM CSTRespiratory Rate--Oxygen [...] limited. SURGICAL HISTORY Surgical History[1] [email or web address] SOCIAL HISTORY Tobacco history is Tobacco [...] FRACTURE FEMUR; Surgeon: Melchor Marcelo D.O.; [facility]: [facility] [2] Social History Tobacco Use Smoking Status Every Day Types: Cigarettes Smokeless Tobacco Current S TENDER documented in this encounter Plan of Treatment DateTypeDepartmentCare Team (Latest Contact Info)Ulqgcgbktoj24/16/2025 12:45 PM CSTClinical Support Department of Physical Medicine and Rehabilitation in [place], [place] [address] [place] [address] Andrew Hansen APRN, C.N.P., M.S.N. [address] [place] [address] Abdulkadir Jesus PSegun., D.P.T. [address] [place] [address] 08/24/2025 1:30 PM CSTClinical Support Department of Physical Medicine and Rehabilitation in [place], [place] [address] [place] [address] Andrew Hansen APRN, C.N.P., M.S.N. [address] [place] [phone] Abdulkadir Jesus P.T., D.P.T. [address] [place] [phone] 09/14/2025 10:20 AM CSTAppointment Department of Radiology, [facility], in [address] [phone] Andrew Hansen APRN, C.NAngela., M.S.N. [address] [place] [phone] Discharge Disposition: Home or Self Care09/14/2025 10:45 AM CSTOffice Visit Department of Orthopedic Surgery in [address] [phone] Andrew Hansen APRN, C.NAngela., M.S.N. [address] [place] [phone] NameTypePriorityAssociated DiagnosesOrder ScheduleDX Femur Right 2 [...]
--- OUTSIDE RECORDS SUMMARY | 2025-07-27 14:15 | XMS_ITS | Encounter Summary ---
Author Organization [facility] Address [address] [place] [address] Care Team Providers Care Spring Upholsterer Name Role Phone Elsewhere, Pcp Primary Care Provider Unavailabl e Reason for Referral * Physical Therapy (Routine) - AuthorizedSpecialtyDiagnoses / ProceduresReferred By ContactReferred To Contact Diagnoses Fracture Lower End Femur Other Closed Initial Right (HCC) Procedures PT Ongoing treatment Andrew Hansen APRN, C.N.P., M.S.N. [facility] [place] [address] Phone: tel: fax: [facility] Region Referral IDStatusReasonStart DateExpiration DateVisits RequestedVisits [id number]/2/[id number] SMITH Reason for Visit * Physical Therapy (Routine) - AuthorizedSpecialtyDiagnoses / ProceduresReferred By ContactReferred To Contact Diagnoses Fracture Lower End Femur Other Closed Initial Right (HCC) Procedures PT Evaluate and treat Andrew Hansen APRN C.N.P., M.S.N. [facility] [place] [address] Phone: tel: fax: [facility] Referral IDStatusReasonStart DateExpiration DateVisits RequestedVisits [id number]/20/20252/[id number] Encounter Details DateTypeDepartmentCare Team (Latest Contact Info)Bmcisfgphzu17/09/2024 2:15 PM CSTComprehensive Visit Department of Physical Medicine and Rehabilitation in [place], [place] [address] [place] [phone] Andrew Hansen APRN, C.N.P., M.S.N. [address] [place] [phone] Abdulkadir Jesus P.T., D.P.T. [address] [place] [phone] Fracture Lower End Femur Other Closed Initial [...] live05/16/2025CommentsNoSex and Gender InformationValueDate RecordedSex Assigned at PsldxQwhtvi00/21/2025 2:33 AM CDTLegal HmiNpygcj97/03/2017 10:03 PM CSTGender IdentityTransgender Male 05/16/2025 2:33 [...] AND B / Product Type: Medicare / [employer] Visit Count: 1 PERTINENT MEDICAL / SURGICAL [...] Function/Occupational Profile: Prior Mobility/Functional Transfers Level of [place]: Independent Prior Function/Occupational Profile Dominant Hand: Right [...] Home Exercise Program/Education: Access Code: [email or web address] URL: [email or web address] Date: 07/27/2025 Prepared by: Abdulkadir Jesus Exercises [...] FEMUR; Surgeon: Melchor Marcelo D.O.; Location: [facility] OR Cosigned by Andrew Hansen APRN, C.N.P., M.S.N. at 08/03/2025 6:22 PM TOOL SMITH SMITH SMITH documented in this encounter Plan of Treatment DateTypeDepartmentCare Team (Latest Contact Info)Kftrtdpfxug65/16/2025 12:45 PM CSTClinical Support Department of Physical Medicine and Rehabilitation in [address] [phone] Andrew Hansen APRN, C.N.P., M.S.N. [address] [place] [address] Abdulkadir Jesus P.T., D.P.T. [address] [place] [phone] 08/24/2025 1:30 PM CSTClinical Support Department of Physical Medicine and Rehabilitation in [place], [place] [address] [place] [address] Andrew Hansen APRN, C.NMarie, M.S.N. [address] [place] [phone] Abdulkadir Jesus P.T., D.P.T. [address] [place] [phone] 09/14/2025 10:20 AM CSTAppointment Department of Radiology, [facility], in [place], [place] [address] [place] [phone] Andrew Hansen APRN, C.NMarie, M.S.N. [facility] [place] [phone] Discharge Disposition: Home or Self Care09/14/2025 10:45 AM CSTOffice Visit Department of Orthopedic Surgery in [place], [place] [address] [place] [phone] Andrew Hansen APRN, C.N.P., M.S.N. [address] [place] [phone] documented as of this encounter Visit Diagnoses Diagnosis Fracture Lower End Femur Other Closed Initial Right (HCC) documented in this encounter Care Teams Team MemberRelationshipSpecialtyStart DateEnd Date Elsewhere, Pcp PCP - GeneralInternal Medicine05/16/25documented as of this encounter
[2025-08-09 15:30] VITALS: BP 103/69; PULSE 85; RESP 18; TEMP 36.4; O2SAT 95; BMI 27.2
--- NOTE | 2025-08-09 15:41 | CRLHL7_ITS ---
For Patients: As a result of the Century Cures Act, medical imaging exams and procedure reports are released immediately into your electronic medical record. You may view this report before your referring provider. If you have questions, please contact your health care provider. INDICATION: Right mid pelvic pain. Transgender. Takes testosterone. TECHNIQUE: Ultrasound pelvis transvaginal. Real-time sonographic images with spectral and color Doppler imaging of the ovaries were obtained. COMPARISON: August 08, 2022. pelvic ultrasound FINDINGS: Uterus: 7.6 x 4.0 x 3.2 cm. Normal echotexture of the myometrium. No masses. 0.3 centimeter cervical nabothian cysts Endometrium: Endometrial thickness measures 5 mm. No sign of endometrial mass or fluid. Right ovary:3.5 x 2.8 x 2.3 cm with multiple subcentimeter follicles. Left ovary: 3.3 x 2.8 x 2.5 cm with multiple subcentimeter follicles. Normal arterial and venous blood flow is demonstrated in both ovaries. Adnexa: No mass or free fluid. Cul-de-sac: No significant free fluid. IMPRESSION: Negative stable study. No new or acute abnormalities. Dictated by Melchor Dunham MD @ 08/09/2025 4:37:30 PM (Electronically Signed)
--- OUTSIDE RECORDS SUMMARY | 2025-08-09 17:03 | XMS_ITS | Clinical Summary ---
Author Organization [facility] Address [address] [place] [address] Care Team Providers Care Hotel Front Office Manager Name Role Phone Elsewhere, Pcp Primary Care Provider Unavailabl e Source Comments Patient records contain information from all sites at [facility]. For routine questions regarding patient records, call [phone] during business hours, M-F 8:00 AM - 5:00 PM Central Time. Record requests for emergency care only can be directed to [phone] at any time.[facility] Allergies Active AllergyReactionsCriticalityNoted DateCommentsOndansetronNausea And Vomiting,GI gzwsxczrukn16/16/2020 Causes paradoxical increased vomiting. Medications MedicationSigDispense QuantityRefillsLast [...] End Femur Other Closed Initial Right 05/16/2025sthma Lnxdlwvnibkh12/21/2025 Overview (05/16/2025): Had asthma problems the beginning July. Put on a 12 day taper. Asthma got worse couple days after finishing the taper. Continues on home inhalers as prescribed. Follows with pulmonology. No definite recent respiratory illness. Prwxjmngfrxskpk94/21/2025Gender Incongruence Adolescent Or Adult05/16/2025 Overview (05/16/2025): female to male Tobacco Use05/16/2025 Overview (05/16/2025): Advised to avoid vaping due to potential for respiratory problems Wtuhofr0712/14/2024 Overview (05/16/2025): Hx of non-epileptic seizure-like events Posttraumatic Stress Disorder Brief2Attention Deficit Disorder Combined Type02/04/2020Anxiety Disorder Ntnxdrybdvg75/11/2020Cannabis Use Unspecified Nymqbwdjnhgdp18/14/2020Depression Major Recurrent Pjaqhtwo90/11/2018Post Concussion Ewsqcqnz65/28/2016Disruptive Mood Dysregulation Lgmalnbc92/25/2016 Encounters DateTypeDepartmentCare BqmkCppobphkqdf48/02/2025 2:15 PM CSTComprehensive Visit Department of Physical Medicine and Rehabilitation in [place], [place] [address] [place] [address] Andrew Hansen, RENÉE, C.N.P., M.S.N. Abdulkadir Jesus, P.T., D.P.T. Fracture Lower End Femur Other Closed Initial Right (HCC)07/15/2025 10:00 AM HOSPITAL TECHNICIAN Office Visit Department of Orthopedic Surgery in [place] [address] [place] [address] Andrew Hansen APRN, C.NArikP., M.S.N. Fracture Lower End Femur Other Closed Initial Right (HCC) (Primary Dx) Discharge Disposition: Home or Self Care07/15/2025 9:15 AM HOSPITAL TECHNICIAN - 07/15/2025 11:59 PM CSTHospital Encounter Department of Radiology, [facility], in [address] [phone] Andrew Hansen APRN, C.N.Pawel, M.S.N. Pain Knee Right Discharge Disposition: Home or Self Care06/17/2025 3:42 PM CDT - 06/17/2025 5:14 [facility] [address] [place] [phone] Doris Ocasio APRN C.N.P., D.N.P. Pain Leg Right (Primary Dx) Discharge Disposition: Left Against Medical Advice or Discontinued Care 06/11/2025 9:45 AM CDTOffice Visit Department of Orthopedic Surgery in [address] [address] Nithin Hinds P.A.-C., M.S. Fracture Lower End Femur Other Closed Initial Right (HCC) (Primary Dx) Discharge Disposition: Home or Self Care06/11/2025Refill Department of Orthopedic Surgery in [address] [address] Nithin Hinds P.A.-C., M.S. Med Change Lyxraxc1706/09/2025linical Communication Department of Orthopedic Surgery and Sports Medicine at [facility] in [place], [place] [address] [facility] [address] [place] [phone] Andrew Hansen APRN, C.N.P., M.S.N. Post-op Ynvvand5805/31/2025 2:02 PM CDT - 05/31/2025 11:59 PM CDTHospital Encounter Department of Radiology, [facility], in [address] [phone] Andrew Hansen APRN, C.N.P., M.S.N. Pain Knee Right Discharge Disposition: Home or Self Care05/31/2025 1:45 PM CDTOffice Visit Department of Orthopedic Surgery in [address] [phone] Andrew Hansen APRN, C.N.P., M.S.N. Pain Knee Right (Primary Dx) Discharge Disposition: Home or Self Care05/31/2025 12:48 PM CDT - 05/31/2025 2:01 PM CDTHospital Encounter Department of Radiology, [facility], in [address] [phone] Nithin Hinds P.A.-C., M.S. Fracture Lower End Femur Other Closed Initial Right (HCC) Discharge Disposition: Home or Self Care05/25/2025 1:30 PM CDTOffice Visit Department of Orthopedic Surgery in [address] [phone] Deepthi Zhong P.A.-C., P.A., M.S. Follow Up Examination Postoperative Visit (Primary Dx) Discharge Disposition: Home or Self Care05/24/2025Refill Department of Orthopedic Surgery in [address] [address] Nithin Hinds P.A.-C., M.S. Med Rwtcqv2705/16/2025 12:15 PM CDT - 05/16/2025 2:52 PM CDTSurgery Outpatient Procedure Center in [address] [phone] Melchor Marcelo D.O. SURGICAL MANAGEMENT SHAFT FRACTURE FEMUR05/16/2025 11:59 AM CDTAnesthesia Event Outpatient Procedure Center in [place], [place] [address] [place] [address] Annmarie Spencer M.D. 05/16/2025 8:16 AM CDT - 05/17/2025 2:16 PM CDTHospital Encounter , [facility], Fifth Floor [address] [place] [address] Bam Kapoor M.D. Freed, Robert J, D.O. Fracture Lower End Femur Other Closed Initial Right (HCC) (Primary Dx); Fracture Femur Shaft Oblique Displaced Closed Initial Right (HCC) Discharge Disposition: Home or Self Care05/16/2025 1:25 AM CDT - 05/16/2025 7:23 AM [facility] [address] [place] [phone] Leobardo Jane M.D. Fracture Femur Epiphysis Displaced [...] RecordedIn the past 12 months has the [employer], gas, oil, or water [employer] threatened to shut off services in your home?No05/16/2025Housing StabilityAnswerDate RecordedWhat is your living situation today?I have a steady place to live05/16/2025 CommentsNoSex and Gender InformationValueDate RecordedSex Assigned at Mbwkxk9505/16/2025 2:33 AM CDTLegal AcmQmnudp84/03/2017 10:03 PM CSTGender IdentityTransgender Male05/16/2025 2:33 AM CDTSexual OrientationNot on file Last Filed Vital Signs Vital SignReadingTime TakenCommentsBlood Oqnqolgb691/8210 4:02 PM CDT Hreke3686 4:02 PM VFVOnbjjhqdxiv78.9 ??C (96.6 ??F)07/15/2025 9:50 AM CSTRespiratory Afxb4786 4:02 PM CDTOxygen Vgaywzbbgb83%06/17/2025 4:02 PM CDTInhaled Oxygen Concentration--Pcowhj43.7 kg (169 lb 1.5 oz)06/17/2025 3:59 PM SSYQgjqho680.6 cm (5' 5.98)05/16/2025 3:15 PM CDTBody Mass Index27.31 05/16/2025 3:15 PM CDT Plan of Treatment DateTypeDepartmentCare Team (Latest Contact Info)Ljtwrecevyb13/16/2025 12:45 PM CSTClinical Support Department of Physical Medicine and Rehabilitation in [place] [address] [place] [address] Andrew Hansen, RENÉE, C.N.P., M.S.N. [address] [place] [phone] Abdulkadir Jesus P.T., D.P.T. [address] [place] [phone] 08/24/2025 1:30 PM CSTClinical Support Department of Physical Medicine and Rehabilitation in [place], [place] [address] [place] [phone] Andrew Hansen APRN, C.NMarie, M.S.N. [address] [place] [phone] Abdulkadir Jesus P.T., D.P.T. [address] [place] [phone] 09/14/2025 10:20 AM CSTAppointment Department of Radiology, [facility], in [place], [place] [address] [place] [phone] Andrew Hansen APRN, C.NArikPArik, M.S.N. [address] [place] [phone] Discharge Disposition: Home or Self Care09/14/2025 10:45 AM CSTOffice Visit Department of Orthopedic Surgery in [place], [place] [address] [place] [phone] Andrew Hansen APRN, C.N.P., M.S.N. [address] [place] [phone] Health MaintenanceDue DateLast DoneCommentsDepression Monitoring (PHQ-9) 2000HIV Kxfdjxlxw2000Hepatitis C Wogneywka2000Tobacco Cessation mgrynwkfef2000Pneumococcal vaccine (0-49 years) (2 of 2 - PCV) /04/2021, 08/28/2001, 2000, Additional history exists Depression Monitoring (PHQ-9 for quality tracking)08/26/2024OVID-19 Vaccine ( - season)5012/14/2024, 07/20/2022, 01/12/2021, Additional history existsAsthma Action Plan05/16/2025sthma Control Test Questionnaire 05/16/2025sthma Management/Exacerbation Questionnaire (AMQ/AEQ)05/16/2025 Glucose Test for Med Ywgcbdblhz99, 05/17/2025, 05/16/2025, Additional history existsDTaP,Tdap,and Td Vaccines (8 - Td or Tdap)06/24/2026 06/24/2016, 11/14/2011, 06/15/2005, Additional history existsCervical/Vaginal Cancer Ffzwgkrvv39Hepatitis B DjuwszkiRogptxmhn35/03/2002, 08/28/2001, 2000, Additional history existsIPV VaccinesCompleted 06/15/2005, 03/26/2001, 2000, Additional history existsHepatitis A QhxvlufsUiixttowp89/21/2012, 07/07/2010HPV DvihoaqwSzfjspzzc11/21/2025, 09/08/2019, 07/17/2013Influenza JialsfwCcfcetbgw66/16/2025, 07/29/2024, 07/20/2022, Additional history exists Medical Devices ImplantedTypeAreaManufacturerDevice IdentifierShelf Expiration DateModel / Serial / LotNl Fem Rfn 5d 9x380 - Sn/A - [id number] Implanted:Qty: 1 on 05/16/2025 [facility] pins/screws/rodsRight: FemurDepuy Slujhlh4807/25/2026 04.233.938S / N/A / [id number] [employer] Xl25 5.0x68 - Sn/A - [id number] Implanted:Qty: 1 on 05/16/2025 by [facility] pins/screws/rodsRight: FemurDepuy Obwpmea6008/25/2031 04.045.368S / N/A / [id number] [employer] Xl25 5.0x48 - Sn/A - [id number] Implanted:Qty: 1 on 05/16/2025 by [facility] e.g. pins/screws/rodsRight: FemurDepuy Cvesisg7405/25/2034 04.045.348S / N/A / [id number] [employer] Xl25 5.0x74 - Sn/A - [id number] Implanted:Qty: 1 on 05/16/2025 by [facility] pins/screws/rodsRight: FemurDepuy Acksyvm3507/25/2034 04.045.374S / N/A / [id number] na Lck 5.0x34 - Sn/A - [id number] Implanted:Qty: 1 on 05/16/2025 by Melchor [facility] pins/screws/rodsRight: FemurDepuy Cvsntci8402/22/2034 04.045.034S / N/A / [id number] Frna Lck 5.0x34 - Sn/A - [id number] Implanted:Qty: 1 on 05/16/2025 [facility]/screws/rodsRight: FemurDepuy Qxdiwqs3202/22/2034 04.045.034S / N/A / [id number] Nl Retrograde Rfn 0 - Sn/A - [id number] Implanted:Qty: 1 on 05/16/2025 by [facility].g[facility] pins/screws/rodsRight: FemurDepuy Ouzxjtu7401/23/2035 04.233.000S / N/A / [id number] Procedures Procedure NamePriorityDate/TimeAssociated DiagnosisCommentsDX FEMUR RIGHT 2 VIEWSRAD - Routine (most inpatients and all outpatients)07/15/2025 9:30 AM HOSPITAL TECHNICIAN Pain Knee Right C-REACTIVE PROTEIN (CRP), S/PSTAT1 5:12 PM CDT LACTATE FOR SEPSIS WITH NXIUKODBPC46/23/2025 5:12 PM CDT BASIC METABOLIC PANEL, S/PSTAT1 [...] Closed Initial Right (HCC) CBC WITHOUT DIFFERENTIAL, ILvuoees69/22/2025 6:48 AM CDT BASIC METABOLIC PANEL, S/MWkmureh02/22/2025 6:48 AM CDT CONTINUOUS PULSE ELWBYTCIXjahbut60/21/2025 3:04 PM CDTCONTINUOUS PULSE OXIMETRY Xuqtuzj0305/16/2025 3:04 PM CDTCONTINUOUS PULSE LYNDMOKMJhtzcwf41/21/2025 3:04 PM CDTADULT OXYGEN EMUWLJOQgyybnx00/21/2025 2:19 PM CDTFL FLUORO LESS THAN 1 HOUR RAD - Routine (most inpatients and all outpatients)05/16/2025 1:23 PM CDT LDA ANE ENDOTRACHEAL AZIWPPLlbjbmp14/21/2025 12:08 PM CDT SURGICAL MANAGEMENT SHAFT FRACTURE FEMUR05/16/2025 11:59 AM CDT Fracture Femur Shaft Oblique Displaced Closed Initial Right (HCC) DX CHEST PORTABLE 1 VIEWRAD - Semiurgent (Fast; most ED patients; some inpatients)05/16/2025 8:51 AM CDT NDDPNQV7705/16/2025 8:45 AM CDT TESTING JZJXSGVGCddgmnt40/21/2025 8:38 AM CDT TYPE AND MVXYANZgigfxg91/21/2025 8:38 AM CDT URINALYSIS WITH MICROSCOPIC IF INDICATED, USTAT05/16/2025 6:47 AM CDT BACTERIAL CULTURE, AEROBIC + SUSC, YQVXRIFYC33/21/2025 6:47 AM CDT DX FEMUR RIGHT 2 VIEWSRAD - Semiurgent (Fast; most ED patients; some inpatients) 05/16/2025 2:29 AM CDT SPLINT LZRLEZMSONXEbzhnzt81/21/2025 2:08 AM CDT HUMAN CHORIONIC GONADOTROPIN (HCG), [...] Femur Right 2 Views (07/15/2025 9:30 AM HOSPITAL TECHNICIAN) Only the most recent of5 resultswithin the time period is included. Anatomical RegionLateralityModalityLower Extremity, Femur, Musculoskeletal RST LOS, Musculoskeletal ARZ LOS, Muskuloskeletal FLA LOSRightDigital Radiography Specimen (Source)Anatomical Location / LateralityCollection Method / Volume Collection TimeReceived Time Impressions 07/15/2025 9:51 AM HOSPITAL TECHNICIAN Some radiographic evidence for healing involving the distal one third of right femur fracture, right femur intramedullary america remains intact Narrative 07/15/2025 9:51 AM HOSPITAL TECHNICIAN EXAM: DX FEMUR RIGHT 2 VIEWS COMPARISON: [...] BLOOD NON ADD-ONFinal ResultPerforming OrganizationAddressCity/State/ZIP CodePhone Number [facility] [place] [address], [facility] MKTO [facility] in [place] [address] [place] [address] * (ABNORMAL) CBC with Differential, Blood (06/17/2025 5:12 PM CDT) Only the most recent of2 resultswithin the time period is included. ComponentValueRef RangeTest MethodAnalysis TimePerformed AtPathologist Signature Almsaopknj42.7(H)11.6 - 15.0 g/dL06/17/2025 5:24 PM RZCOVTMVoncodvnwc60.0(H)35.5 - 44.9 %06/17/2025 5:24 PM CDTMKTOErythrocytes5.57(H)3.92 - 5.13 x10(12)/L 06/17/2025 5:24 PM ZLSXZJNGUL07.078.2 - 97.9 fL06/17/2025 5:24 PM CDTMKTORBC Distrib Width12.712.2 - 16.1 %06/17/2025 5:24 PM CDTMKTOPlatelet Wfivt825650 - 371 x10(9)/L1 5:24 PM XXFIILYRusjukjsbe75.4(H)3.4 - 9.6 x10(9)/L 06/17/2025 5:24 PM CDTMKTONeutrophils6.071.56 [...] BLOOD ADD-ONFinal ResultPerforming OrganizationAddressCity/State/ZIP Code Phone Number [facility] [address] [place] [address], [facility] in [place] [address] [place] [address] * (ABNORMAL) CRP (C-Reactive Protein) (06/17/2025 5:12 PM CDT)ComponentValueRef RangeTest MethodAnalysis TimePerformed AtPathologist SignatureC-Reactive Protein (CRP), P6.0(H)<5.0 mg/L1 5:55 PM CDTMKTOSpecimen (Source) Anatomical Location / LateralityCollection Method / VolumeCollection Time Received TimeBlood (Blood, Venous)06/17/2025 5:12 PM CDT1 5:18 PM CDT Narrative Authorizing ProviderResult TypeResult StatusStacy Edinson Ocasio APRN, C.N.P., D.N.P. LAB BLOOD ADD-ONFinal ResultPerforming OrganizationAddressCity/State/ZIP Code Phone Number [facility] [address] [place] [address], [facility] in [place] [address] [place] [address] * Basic Metabolic Panel (06/17/2025 5:12 PM CDT) Only the most recent of3 resultswithin the time period is included. ComponentValueRef RangeTest MethodAnalysis TimePerformed AtPathologist Signature Potassium, P3.93.6 - 5.2 mmol/L1 5:55 PM CDTMKTOSodium, W126911 - 145 mmol/L1 5:55 PM CDTMKTOChloride, X40886 - 107 mmol/L1 5:55 PM CDTMKTOBicarbonate, P2622 [...] BLOOD ADD-ONFinal ResultPerforming OrganizationAddressCity/State/ZIP Code Phone Number [facility] [address] [place] [address], [facility] in [address] [address] * DX Knee Right 4+ Views (05/31/2025 [...] right knee fracture. Authorizing ProviderResult TypeResult StatusOmar Bindu Staley APRNNMarie, M.S.N. IMG DIAGNOSTIC IMAGING PROCEDURESFinal Result * (ABNORMAL) CBC without Differential (05/17/2025 6:48 AM CDT)ComponentValueRef RangeTest MethodAnalysis TimePerformed AtPathologist GzkxijhxqUqvibswfcn98.0 11.6 - 15.0 g/dL05/17/2025 7:15 AM CDTMKTOComment: Result consistent with patient history. patient receiving fluids per RN will evaluate Fliaswanuc64.235.5 - 44.9 %05/17/2025 7:15 AM CDTMKTOComment: Result consistent with patient history. patient receiving fluids per RN - will evaluate Erythrocytes4.643.92 - 5.13 x10(12)/L05/17/2025 7:15 AM LBSLSAGSSL74.678.2 - 97.9 fL05/17/2025 7:15 AM CDTMKTORBC Distrib Width13.012.2 - 16.1 %05/17/2025 7:15 AM CDTMKTOPlatelet Nbluy901941 - 371 x10(9)/L05/17/2025 7:15 AM CDTMKTO Mwqwnlfcir06.0(H)3.4 - 9.6 x10(9)/L05/17/2025 7:15 AM CDTMKTOSpecimen (Source) Anatomical Location / LateralityCollection Method / VolumeCollection Time Received TimeBlood (Blood, Venous)05/17/2025 6:48 AM CDT05/17/2025 6:52 AM CDT Narrative Authorizing ProviderResult TypeResult StatusNithin Hinds P.A.-C., M.S.LAB BLOOD ADD-ONFinal ResultPerforming OrganizationAddressCity/State/ZIP CodePhone Number [facility] [address] [place] [address], [facility] [address] [place] [address] * FL Fluoro Less Than 1 Hour (05/16/2025 1:23 PM CDT)Specimen (Source)Anatomical Location / LateralityCollection Method / VolumeCollection TimeReceived Time Narrative [address] [facility] - 05/16/2025 1:23 PM CDT This exam does not require a radiologist review or interpretation. Please refer to the patient's medical record on this date for clinical details. Authorizing ProviderResult TypeResult StatusRobert J Fozia OseiIMG FLUOROSCOPY PROCEDURESFinal ResultPerforming OrganizationAddressCity/State/ZIP CodePhone Number [address] [facility] * LDA ANE ENDOTRACHEAL AIRWAY (05/16/2025 12:08 [...] No acute findings. Authorizing ProviderResult SarahRespineda Kapoor M.D.[facility] DIAGNOSTIC IMAGING PROCEDURESFinal Result * ECG 12 Lead (05/16/2025 8:45 AM CDT)ComponentValueRef RangeTest MethodAnalysis TimePerformed AtPathologist SignatureVentricular Rate ECG/Vvj61IFXVPMTVA Ulcamerk280cnBVCKDFAM Rnpviiza82wpJHJLOJ Kpdjfyat422pjNNQNQMS Zvsgtsxh438zb MUSER Umbz09huqzxtwPSLZO Wave Zhfh59qclnwqbSSGTBhuarkch (Source)Anatomical Location / LateralityCollection Method / VolumeCollection [...] CDT)ComponentValueRef RangeTest Method Analysis TimePerformed AtPathologist SignatureTesting LocationROCKLAND [facility] DEFAULT 05/16/2025 8:59 AM CDTMKTOSpecimen (Source)Anatomical Location / Laterality Collection Method / VolumeCollection TimeReceived XazhClktv20/21/2025 8:38 AM CDT05/16/2025 8:59 AM CDT Narrative Authorizing ProviderResult TypeResult StatusBam Kapoor M.D.LAB BLOOD BANK TEST ORDERABLESFinal ResultPerforming OrganizationAddressCity/State/ZIP Code Phone Number [facility] [address] [place] [address], [facility] in [place] [address] [place] [address] * Type and Screen (with Reflex Antibody ID) (05/16/2025 8:38 AM CDT)Component ValueRef RangeTest MethodAnalysis TimePerformed AtPathologist SignatureABO AddgkH0905/16/2025 9:41 AM CDTMKTORh TxnbEQW7005/16/2025 9:41 AM CDTMKTOAntibody FejuzxDHA64/21/2025 9:55 AM CDTMKTOType & Screen Svmvuisqij32/24/2025 23:59 05/16/2025 9:55 AM CDTMKTOELXM DotmbxfoX50/21/2025 9:55 AM CDTMKTOSpecimen (Source)Anatomical Location / LateralityCollection Method / VolumeCollection TimeReceived TimeBlood (Blood, Venous)05/16/2025 8:38 AM CDT05/16/2025 8:59 AM CDT Narrative Authorizing ProviderResult TypeResult StatusAnddanelle Kapoor M.D.LAB BLOOD BANK TEST ORDERABLESFinal ResultPerforming OrganizationAddressCity/State/ZIP Code Phone Number [facility] [address] [place] [address], [facility] in [place] [address] [place] [address] * (ABNORMAL) Urinalysis with Microscopic if Indicated: Urine, Straight Catheter (05/16/2025 6:47 AM CDT)ComponentValueRef RangeTest MethodAnalysis Time Performed AtPathologist SignatureSourceUrine, Urine, Straight Catheter 05/16/2025 6:52 AM CPURRYWBvepjflAptxxGzgrq56/21/2025 6:58 AM CDTNPRGColor Czobnn3605/16/2025 6:58 AM CDTNPRGComment: ----REFERENCE VALUE---- Colorless Yellow Suzette JqiwgZhmsznsvTsvhdtyp12/21/2025 6:58 AM NBMYUVCCowyjuvFjtmjqewEfjlcwrc76/21/2025 6:58 AM CDTNPRGLeukocyte KethadnxBtzuxdvnMihizetx02/21/2025 6:58 AM CDTNPRG ProteinNegativemg/dL05/16/2025 6:58 AM CDTNPRGComment: ----REFERENCE VALUE---- Negative Trace GlucoseNegativeNegative mg/dL05/16/2025 6:58 AM CDTNPRGKetones, QI(U)Negative Negative mg/dL05/16/2025 6:58 AM YVSHKFOVxwvurqhiHtzswnrqNktpvxkn54/21/2025 6:58 AM CDTNPRGpH8.5(A)5.0 - 8.009 6:58 AM CDTNPRGSpecific Gravity1.0201.001 - 1.2532505/16/2025 6:58 AM CDTNPRGUrobilinogen0.20.2 - 1.0 mg/dL05/16/2025 6:58 AM CDTNPRGSpecimen (Source)Anatomical Location / LateralityCollection Method / VolumeCollection TimeReceived TimeUrine (Urine, Straight Catheter)05/16/2025 6:47 AM CDT05/16/2025 6:51 AM CDT Narrative Authorizing ProviderResult TypeResult StatusLeobardo Jane M.D.LAB URINE ORDERABLESFinal ResultPerforming OrganizationAddressCity/State/ZIP CodePhone Number [facility] [address] [place] [address], [facility] NPRG [address] [address] * Bacterial Culture, Aerobic + Susceptibility, Urine [...] GENERAL ORDERABLESFinal ResultPerforming OrganizationAddress City/State/ZIP CodePhone Number [facility] [address] [place] [address], [facility] in [place] [address] [place] [address] * Splint Application (05/16/2025 2:08 AM CDT) [...] StatusLeobardo Jane M.D.LAB BLOOD NON ADD-ONFinal ResultPerforming OrganizationAddressCity/State/[facility] HospitalPhone Number [facility] [address] [place] [address], [address] [address] * Prothrombin Time (PT) (05/16/2025 1:46 AM [...] Result - FinalPerforming OrganizationAddressCity/State/ZIP Code Phone Number [facility] [address] [place] [address], [facility] [address] [address] * hCG (Human Chorionic Gonadotropin), Quantitative, (05/16/2025 1:46 AM CDT)ComponentValueRef RangeTest MethodAnalysis TimePerformed AtPathologist SignatureHCG, Quantitative, , P<1.0<5 IU/L05/16/2025 2:51 AM CDTNPRG Specimen (Source)Anatomical Location / LateralityCollection Method / Volume Collection TimeReceived TimeBlood (Blood, Venous)05/16/2025 1:46 AM CDT 05/16/2025 2:32 AM CDT Narrative Authorizing ProviderResult TypeResult StatusLeobardo Jane M.D.LAB BLOOD ADD-ONFinal ResultPerforming OrganizationAddressCity/State/ZIP CodePhone Number [facility] [address] [place] [address], [address] [address] * (ABNORMAL) Lactate (05/16/2025 1:46 AM CDT)ComponentValueRef RangeTest Method Analysis TimePerformed AtPathologist SignatureLactate, P3.3(H)0.5 - 2.2 mmol/L 05/16/2025 2:43 AM CDTNPRGSpecimen (Source)Anatomical Location / Laterality Collection Method / VolumeCollection TimeReceived TimeBlood (Blood, Venous) 05/16/2025 1:46 AM CDT05/16/2025 1:50 AM CDT Narrative Authorizing ProviderResult TypeResult StatusLeobardo Jane M.D.LAB BLOOD NON ADD-ONFinal ResultPerforming OrganizationAddressCity/State/ZIP CodePhone Number [facility] [address] [place] [address], [address] [address] from Last 3 [place] [address] Advance Directives For more information, please contact: [phone] * Full Code (Latest Code Status on File) Date ActivatedDate InactivatedComments05/16/2025 3:04 PM05/17/2025 4:21 PMQuestion AnswerCommentsFull Code:* Discussed * Full Code Date ActivatedDate InactivatedComments05/16/2025 2:19 PM05/16/2025 3:04 PMQuestion AnswerCommentsFull Code:* Discussed Care Teams Team MemberRelationshipSpecialtyStart DateEnd Date Elsewhere, Pcp PCP - GeneralInternal Medicine05/16/25
--- OUTSIDE RECORDS SUMMARY | 2025-08-09 17:03 | XMS_ITS | Clinical Summary ---
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 ResultPerforming OrganizationAddressCity/State/ZIP CodePhone Number [facility] [address] [place] [address], * (ABNORMAL) CBC W PLT NO DIFF (06/10/2025 3:49 PM CDT)ComponentValueRef Range Test MethodAnalysis TimePerformed AtPathologist SignatureWHITE BLOOD CELL COUNT7.93.8 - 10.8 Thousand/uL06/11/2025 4:03 AM CDTQUEST DIAGNOSTICSRED BLOOD CELL COUNT5.424.20 - 5.80 Million/uL06/11/2025 4:03 AM CDT[facility] WXQLQKIPUR49.613.2 - 17.1 g/dL06/11/2025 4:03 AM CDT[facility] UCGJIRKOQX10.938.5 - 50.0 %06/11/2025 4:03 AM CDTQUEST ZRWJQCIPHSYKLV93.280.0 - 100.0 fL06/11/2025 4:03 AM CDTQUEST SFYFKZZWYCMIJA95.627.0 - 33.0 pg 06/11/2025 4:03 AM CDTQUEST RDCBSTOLPWCAGFS12.932.0 - 36.0 g/dL06/11/2025 4:03 AM CDTQUEST DIAGNOSTICSComment: For adults, a slight decrease in the calculated MCHC value (in the range of 30 to 32 g/dL) is most likely not clinically significant; however, it should be interpreted with caution in correlation with other red cell parameters and the patient's clinical condition. RDW13.911.0 - 15.0 %06/11/2025 4:03 AM CDTQUEST DIAGNOSTICSPLATELET TKDOR136(H) 140 - 400 Thousand/uL06/11/2025 4:03 AM CDTQUEST DIAGNOSTICSMPV9.87.5 - 12.5 fL 06/11/2025 4:03 AM CDTQUEST DIAGNOSTICSSpecimen (Source)Anatomical Location / LateralityCollection Method / VolumeCollection TimeReceived TimeBloodBLOOD SPECIMEN / UnknownQuest Collect / Flcciiz8406/10/2025 3:49 PM CDT1 3:49 PM CDT Narrative Authorizing ProviderResult TypeResult StatusErin Cindy Zuñiga DOHEMATOLOGYFinal ResultPerforming OrganizationAddressty/State/ZIP CodePhone Number [facility] [address] [address], * TESTOSTERONE,TOTAL (06/10/2025 3:49 PM CDT)ComponentValueRef RangeTest Method Analysis TimePerformed AtPathologist SignatureTESTOSTERONE, TOTAL, [id number] - 1100 ng/dL06/14/2025 12:09 PM CDTQUEST [facility]NO[facility]ICSComment: For additional information, please refer to https://education.Tugg/faq/TotalTestosteroneLCMSMS (This link is being provided for informational/educational purposes only.) (Note) This test was developed and its analytical performance characteristics have been determined by [employer]. It has not been cleared or approved by the FDA. This assay has been validated pursuant to the CLIA regulations and is used for clinical purposes. [facility] [address] [address],[address] [place] [address] Avelina Connors MD, PhD Specimen (Source)Anatomical Location / LateralityCollection Method / Volume Collection TimeReceived TimeBloodBLOOD SPECIMEN / UnknownQuest Collect / Unknown 06/10/2025 3:49 PM CDT1 3:49 PM CDT Narrative Authorizing ProviderResult TypeResult StatusGisela Zuñiga DOCHEMISTRYFinal ResultPerforming OrganizationAddressty/State/ZIP CodePhone Number [facility] [address] [address], * (ABNORMAL) LIVER PANEL (HEPATIC FUNCTION PANEL) (06/10/2025 3:49 PM CDT) ComponentValueRef RangeTest MethodAnalysis TimePerformed AtPathologist SignatureALBUMIN4.73.6 - 5.1 g/dL06/11/2025 5:38 AM CDT[facility] PROTEIN, TOTAL7.76.1 - 8.1 g/dL06/11/2025 5:38 AM CDT[facility] BILIRUBIN, TOTAL1.5(H)0.2 - 1.2 mg/dL06/11/2025 5:38 AM CDT[facility] BILIRUBIN, DIRECT0.2< OR = 0.2 mg/dL06/11/2025 5:38 AM CDT[facility] BILIRUBIN, INDIRECT1.3(H)0.2 - 1.2 mg/dL (calc)06/11/2025 5:38 AM CDT[facility] DIAGNOSTICSALKALINE HZLGRTETNTF489(H)36 - 130 U/L1 5:38 AM CDTQUEST BIMMCRCLLYZGZK202 - 46 U/L1 5:38 AM CDTQUEST HRMZSJLIMDIFJG0947 - 40 U/L1 5:38 AM CDTQUEST DIAGNOSTICSGLOBULIN3.01.9 - 3.7 g/dL (calc) 06/11/2025 5:38 AM CDTQUEST DIAGNOSTICSALBUMIN/GLOBULIN RATIO1.61.0 - 2.5 (calc)06/11/2025 5:38 AM CDTQUEST DIAGNOSTICSSpecimen (Source)Anatomical Location / LateralityCollection Method / VolumeCollection TimeReceived Time BloodBLOOD SPECIMEN / UnknownQuest Collect / Ybkxqbm5906/10/2025 3:49 PM CDT 06/10/2025 3:49 PM CDT Narrative Authorizing ProviderResult TypeResult StatusErin Cindy Zuñiga DOCHEMISTRYFinal ResultPerforming OrganizationAddressCity/State/ZIP CodePhone Number [facility] [address] [address], * ANTI HCV [62426.2] (05/05/2025 2:34 PM CDT)ComponentValueRef RangeTest Method Analysis TimePerformed AtPathologist SignatureHEPATITIS C ANTIBODYNON-REACTIVE NON-HXEKLESA00/11/2025 2:48 PM CDT[facility]ICSComment: HCV antibody was non-reactive. There is no laboratory evidence of HCV infection. In most cases, no further action is required. However, if recent HCV exposure is suspected, a test for HCV RNA (test code 20674) is suggested. For additional information please refer to http://education.Tugg/faq/LWX32g3 (This link is being provided for informational/ educational purposes only.) Specimen (Source)Anatomical Location / LateralityCollection Method / Volume Collection TimeReceived TimeBloodBLOOD SPECIMEN / UnknownQuest Collect / Unknown 05/05/2025 2:34 PM CDT05/05/2025 2:34 PM CDT Narrative Authorizing ProviderResult TypeResult StatusVika Stovall [facility]Up[facility] Community Campusal ResultPerforming OrganizationAddSt. Luke's University [facility] Network/[facility] HospitalPhone Number [facility] [address] [address], * ANTI HIV 1/2 [08215.0] (05/05/2025 2:34 PM CDT)ComponentValueRef RangeTest MethodAnalysis TimePerformed AtPathologist SignatureHIV FINAL INTERPRETATOIN HIV QPWOCNED91/11/2025 2:48 PM CDTQUEST [facility]NOSTICSComment: HIV-1 antigen and HIV-1/HIV-2 antibodies were not detected. There is no laboratory evidence of HIV infection. HIV AG/AB, 4TH TRLQHQ-OUERMDVDHSD-SFQCARVX00/11/2025 2:48 PM CDTQUEST DIAGNOSTICSSpecimen (Source)Anatomical Location / LateralityCollection Method / VolumeCollection TimeReceived TimeBloodBLOOD SPECIMEN / UnknownQuest Collect / Soadtvm2405/05/2025 2:34 PM CDT05/05/2025 2:34 PM CDT Narrative Authorizing ProviderResult TypeResult StatusVika Stovall [facility] OUTSUp[facility] Hospital Community Campusal ResultPerforming OrganizationAddSt. Luke's University [facility] HospitalPhone Number [facility] [address] [address], * BROKERAGE PURCHASE AND SALE CLERK THIN PREP PAP SCREEN IMAGED (04/21/2025 1:57 PM CDT)ComponentValueRef RangeTest MethodAnalysis TimePerformed AtPathologist SignatureCase Report Gynecologic Cytology Report ? Case: [id number] ? Authorizing Provider: ??Vika Stovall ?Collected: ? 04/21/2025 1357 ? MD Alysha ? Ordering Location: ? [facility] ?? Received: ?04/21/2025 1459 ? Clinic ? First Screen: ?Suzette Bean ? Specimen: ?BROKERAGE PURCHASE AND SALE CLERK ThinPrep Vial Screening, Cervical ? 04/29/2025 8:32 AM [facility] INTERPRETATION/RESULTNEGATIVE FOR INTRAEPITHELIAL LESION OR MALIGNANCY (NIL) (none)04/29/2025 8:32 AM [facility] at 0832 CDTSPECIMEN ADEQUACY Satisfactory for evaluation No endocervical component seen04/29/2025 8:32 AM [facility]- CENTRAL LABORATORYDate of LMP5/19/ 8:32 AM [facility]-CENTRAL LABORATORYLast Pap Date10 8:32 AM [facility]-CENTRAL LABORATORYLast Pap HafojtRZP89/04/2025 8:32 AM CDT [facility]-CENTRAL LABORATORYAbnormal Pap or [place] Bx in last 5 lszlxFf4404/29/2025 8:32 AM [facility] Menstrual StatusHormonally Xklgqrdvbi69/04/2025 8:32 AM [facility]AL LABORATORYColp Bx Done VsierNj0904/29/2025 8:32 AM [facility]-CENTRAL LABORATORYAdditional InformationNone given04/29/2025 8:32 AM [facility]ERC[facility]TRAL LABORATORYComment: Cytology is screened at [facility] - [address] [facility] [address], [place] [address] and [facility] - [address] [place] [address] and [facility] - [address] [place] [address] Interpreted at [facility] - [address] [place] [address] Automated OilneuMvjddoxsew18/04/2025 8:32 AM [facility] LABORATORYComment:Specimen processed successfully by automated insurance claims processor device, ThinPrep Imaging System, [employer]NoteThe pap test is a screening technique, not a diagnostic procedure. It is used primarily to screen for squamous cancers and precursor lesions. Published studies have shown that it is subject to both false negative and false positive results. The pap test should not be used as the sole means to diagnose or exclude pre-malignant and malignant lesions. 04/29/2025 8:32 AM [facility]ENTRAL LABORATORYSpecimen (Source)Anatomical Location / LateralityCollection Method / VolumeCollection TimeReceived TimeOther (Cervical)Non-Blood / Inerdyz8904/21/2025 1:57 PM CDT 04/21/2025 2:59 PM CDT Narrative Authorizing ProviderResult TypeResult StatusKatherjersey Stovall MD PATHOLOGY/CYTOLOGYFinal ResultPerforming OrganizationAddressCity/State/ZIP Code Phone Number [facility] [address] [place] [address], from Last 3 Months or Most Recently Relevant to Health Maintenance Insurance * Guarantor: FORTUNATO STOREYAccount TypeRelation to PatientDate of BirthPhone Billing AddressThird Republican AjmxwdthnEahkm23/01/2001 Attn: Candace [address] [place] [address] Advance Directives * Full Code (Latest Code Status on File) Date ActivatedDate InactivatedComments09/16/2015 11:02 PM09/21/2015 6:53 PM Care Teams Team MemberRelationshipSpecialtyStart DateEnd Date Gisela Zuñiga [place] [address] PCP - GeneralFamily Practice02/16/25 Liya No NP 12/31/17 Capo Busby MD [address] [address] PulmonologyPulmonary Medicine02/07/23
--- OUTSIDE RECORDS SUMMARY | 2025-08-09 17:03 | XMS_ITS | Clinical Summary ---
Author Organization [facility] Address [address], [place] [address] Care Team Providers Care Monitoring And Evaluation Advisor Name Role Phone Shanthi Delgadillo MD Primary Care Provider [phone] Source Comments You are receiving this document [...] for each transition of care or referral. [facility] hospital Allergies Active AllergyReactionsCriticalityNoted DateCommentsOndansetronNausea And Rfjvulmn31/17/2020 Medications MedicationSigDispense QuantityRefillsLast FilledStart DateEnd DateStatus sertraline [...] ProblemNoted DateDiagnosed DatePTSD (post-traumatic stress disorder)05/31/2022 Tobacco lhxhlmjkmo24/25/2021Gender gzonyymlj43/22/2020TBI (traumatic brain injury)04/11/2020 Overview (04/11/2020): x3 Attention deficit hyperactivity disorder (ADHD), combined type, moderate 02/04/2020Anxiety jpuwcltg34/11/2020Moderate episode of recurrent major depressive droiwyqv89/11/2020Episodic mood tedqvlyu95/10/2019 Encounters DateTypeDepartmentCare YtofYikzahazfjf43/15/2025Refill [facility] [address] [place] [address] Mika Santos MD Refill (testosterone enanthate (DELATESTRYL) 200 MG/ML injection)from Last 3 Months Immunizations ImmunizationAdministration DatesNext Ahm4uVUX (Gardasil)07/17/20139vHPV (Gardasil 9)09/08/2019,07/17/2013DTaP1,06/15/2005,08/28/2001,08/28/2001 ,2000,2000,2000,2000,2000,2000Flu Vac (3+ yrs)06/03/2010,06/25/2009,06/16/2008HepA Ped/Adol (1-18 yrs)11/14/2011, 07/07/2010HepA, Unspecified Fxqcqzrqjgm02/21/2012,07/07/2010HepB Ped/Adol (0-18 yrs)08/28/2001,2000,2000HepB, Unspecified Qvngodwgkpk80/03/2002, 2000,2000Hib (ActHIB)08/28/2001,2000,2000Hib/HBV 08/28/2001,2000,2000IPV (Polio)06/15/2005,06/15/2005,03/26/2001, 03/26/2001,2000,2000,2000,2000Influenza IIV4 (Quadrivalent) 0.5mL (52969)07/20/2022,09/03/2020,09/04/2018(Deferred: Patient Refused),07/01/2018,07/01/2018,05/30/2017,05/30/2017,06/30/2016,06/30/2016, 07/17/2013,07/17/2013,06/03/2010,06/25/2009,06/16/2008Influenza, Unspecified Wtpghfyjbrz63/05/2016,06/03/2010,06/25/2009,06/16/2008MCV4 (Menactra)05/30/2017, 05/30/2017,11/14/2011MMR1,06/15/2005,05/28/2001,05/28/2001Meningococcal MCV4, Unspecified Mmnkkjtzrvy01/21/7176PTD15 (Coglicz45)6773HXZI13 (Pneumovax)1Pfizer Bivalent 12+2Pfizer Monovalent 12+ Purple Top01/12/2021,1Pneumococcal 7, PED08/28/2001,08/28/2001,2000, 2000,2000,2000,2000,2000Tdap1,06/24/2016, 11/14/2011,11/14/20111901Ldyakdbtt67/12/2010,07/07/2010,05/28/2001,05/28/2001 Family History Medical HistoryRelationNameCommentsAnxietyBirth FatherDepressionBirth Father AnxietyBirth MotherDepressionBirth MotherAnxietyBrotherDepressionBrotherDementia Maternal GrandfatherStrokeMaternal GrandfatherAnxietyMaternal GrandmotherCancer, BreastMaternal GrandmotherCancer, ColonMaternal GrandmotherDepressionMaternal GrandmotherDiabetesMaternal GrandmotherHeart DiseaseMaternal GrandmotherHigh CholesterolMaternal GrandmotherHypertensionMaternal GrandmotherHeart Disease Paternal GrandfatherAnxietyPaternal GrandmotherRelationNameStatusCommentsBirth FatherAliveBirth MotherAliveBrotherAliveMaternal GrandfatherAliveMaternal GrandmotherAlivePaternal GrandfatherAlivePaternal GrandmotherAlive Social History Tobacco UseTypesPacks/DayYears UsedDateSmoking Tobacco: GgkiziPkpsmojjrb8Jzyp: 1Smokeless Tobacco: Never Tobacco Cessation:Counseling Given: Not [...] medical appointments or from getting medications? Patient qifhxbxw07/28/2025In the past 12 months, has lack of transportation kept you from meetings, work, or from getting things needed for daily living?Patient wyfgmdbt13/28/2025Housing Stability Vital SignAnswerDate RecordedIn the last 12 months, was there a time when you were not able to pay the mortgage or rent on time?Patient uoudsfoq76/28/2025In the past 12 months, how many times have you moved where you were living?t any time in the past 12 months, were you homeless or living in a senior living (including now)?Yes06/22/2025HC Utilities AnswerDate RecordedIn the past 12 months has the [employer], gas, oil, or water company threatened to shut off services in your home?No06/22/2025 CommentsNoSex and Gender InformationValueDate RecordedSex Assigned at Ogojyu2704/11/2020 10:11 AM CDTLegal JsyPbkzbc17/15/2019 5:23 PM CSTGender GrbimqpuBhke26/17/2020 10:11 AM CDTSexual OymzkhiuhhxQdenxuaq08/17/2020 10:11 AM CDT Last Filed Vital Signs Vital SignReadingTime TakenCommentsBlood Xaqiiiyx750/7208/08/2023 9:43 AM NEW PATIENT ESCORT Mgoap943908/08/2023 9:43 AM PNKGilkutwqnse13.6 ??C (97.8 ??F)08/08/2023 9:43 AM CSTRespiratory Nlof0873 11:32 AM CDTOxygen Qagouwngjy32%06/15/2021 12:00 PM CDTInhaled Oxygen Concentration--Bthpjg49.8 kg (187 lb)08/08/2023 9:43 AM NEW PATIENT ESCORT Snsaxi742 cm (5' 5.75)08/28/2022 9:06 AM CSTBody Mass Index30.41008/28/2022 9:06 AM NEW PATIENT ESCORT Plan of Treatment Health MaintenanceDue DateLast DoneCommentsCervical Cancer Screening Due 2000Hep C Screening (Preventive Services)2000Medicare Annual Wellness Visit2000Asthma ACT (score of 20 or higher)2004HIV Screening (Preventive Services)2016Asthma AMP 19-50 yo2019Chlamydia 401/12/2022, 08/30/2022, 07/01/2018COVID-19 Vaccine ( season), 01/12/2021, 12/22/2020Influenza Vaccine (#1) 511/, 09/03/2020, 07/01/2018, Additional history exists DTaP/Tdap/Td Vaccine (10 - Tdap)61, 06/24/2016, 11/14/2011, Additional history existsZoster/Shingles Vaccine (1 of 2)2050HepB Vaccine Dsegxvyxp96/03/2002, 08/28/2001, 08/28/2001, Additional history existsHib HspvrohAjxfjrcla30/03/2002, 08/28/2001, 2000, Additional history existsIPV (Polio) MqfjzjsRbsnoxbtt10/21/2005, 06/15/2005, 03/26/2001, Additional history existsVaricella XdcyycbOmabpyzue84/12/2010, 07/07/2010, 05/28/2001, Additional history existsHepA QqxlsmtNwpvedomu40/21/2012, 11/14/2011, 07/07/2010, Additional history existsMCV4 TqlekfeFvwglrdhq36/05/2017, 05/30/2017, 11/14/2011, Additional history existsHPV SqzuuenPdzjfqfam18/14/2020, 07/17/2013, 07/17/2013Pneumococcal VaccineAged Out07/20/2022, 09/03/2020, 08/28/2001, Additional history existsNo longer eligible based on patient's age to complete this topicMeningococcal B VaccineAged OutNo longer eligible based on patient's age to complete this topic Insurance * Guarantor: Luli Wharton TypeRelation to PatientDate of BirthPhone Billing AddressPersonal/IhtdcnMpg[address] [place] [address] * Guarantor: Luli Wharton TypeRelation to PatientDate of BirthPhone Billing AddressPersonal/IlnlkrLeas[address] [place] [address] Advance Directives * Full Code (Latest Code Status on File) Date ActivatedDate KufnhwepjraUmqyywak53/21/2021 11:11 AM06/15/2021 3:25 PM * Full Code Date ActivatedDate InactivatedComments09/03/2018 11:50 PM09/05/2018 6:26 PM Care Teams Team MemberRelationshipSpecialtyStart DateEnd Date Shanthi Delgadillo MD [address] [place] [address] PCP - GeneralObstetrics Gynecology02/12/25
--- NOTE | 2025-08-09 17:05 | ED.GENADULT ---
HPI - General Adult General Chief complaint: Abdominal Pain Stated complaint: lower abdominal pain Time Seen by Provider: 08/09/25 17:04 History of Present Illness HPI narrative: patient is having pain in the right side of the middle abdomen started today. was helping friend move and felt lightheaded, nauseated and no diarrhea. felt more bloated today and just did not feel very well today. hx of ovarian cysts went away on own 25-year-old transgender female to male with concern of mid abdominal pain though on exam clarified across the low abdomen. Apparently has had a recent right-sided femur fracture and has been using crutches. Was assisting a friend move in the sense that he was holding door open for them. Sudden onset of pain in the mid lower abdomen and then was began to feel lightheaded nauseated felt like he was about to pass out and needed to set down. No chest pain or shortness of breath. History of ovarian cysts. No constipation. Later does clarify that was vomiting quite a bit around this time as well. Pelvic ultrasound has been performed by the time I am see this patient. Results below INDICATION: Right mid pelvic pain. Transgender. Takes testosterone. TECHNIQUE: Ultrasound pelvis transvaginal. Real-time sonographic images with spectral and color Doppler imaging of the ovaries were obtained. COMPARISON: August 08, 2022. pelvic ultrasound FINDINGS: Uterus: 7.6 x 4.0 x 3.2 cm. Normal echotexture of the myometrium. No masses. 0.3 centimeter cervical nabothian cysts Endometrium: Endometrial thickness measures 5 mm. No sign of endometrial mass or fluid. Right ovary:3.5 x 2.8 x 2.3 cm with multiple subcentimeter follicles. Left ovary: 3.3 x 2.8 x 2.5 cm with multiple subcentimeter follicles. Normal arterial and venous blood flow is demonstrated in both ovaries. Adnexa: No mass or free fluid. Cul-de-sac: No significant free fluid. IMPRESSION: Negative stable study. No new or acute abnormalities. Dictated by Melchor Dunham MD @ 08/09/2025 4:37:30 PM Related Data Home Medications ?Medication ?Instructions ?Recorded ?Confirmed testosterone enanthate 200 mg/mL 80 mg subcut Q7D 04/02/22 08/09/25 intramuscular oil ibuprofen 200 mg PO PRN 08/15/24 08/09/25 aripiprazole 15 mg tablet 15 mg PO DAILY 08/16/24 08/09/25 dextroamphetamine-amphetamine 15 1 tab PO DAILY 08/16/24 08/09/25 mg tablet dextroamphetamine-amphetamine ER 1 cap PO BID 08/16/24 08/09/25 10 mg 24hr capsule,extend release ipratropium 20 mcg-albuterol 100 1 puff inhalation TID 08/16/24 08/09/25 mcg/actuation mist for inhalation (Combivent Respimat) levalbuterol tartrate 45 2 puff inhalation Q4H PRN wheezing 08/16/24 08/09/25 mcg/actuation aerosol inhaler sertraline 100 mg tablet 150 mg PO DAILY 08/16/24 08/09/25 acetaminophen 500 mg tablet 1,000 mg PO Q6H 08/06/25 08/09/25 buspirone 15 mg tablet 15 mg PO BID 08/06/25 08/09/25 hydroxyzine HCl 25 mg tablet 12.5 - 50 mg PO QPM PRN 08/09/25 08/09/25 Previous Rx's ?Medication ?Instructions ?Recorded ipratropium 0.5 mg-albuterol 3 mg 3 ml inhalation Q6H PRN #90 mL 06/09/22 (2.5 mg base)/3 mL nebulization soln albuterol sulfate 90 mcg/actuation 2 puff inhalation Q4-6H PRN 09/08/23 aerosol inhaler shortness of breath or wheezing #8.5 grams doxycycline hyclate 100 mg tablet 100 mg PO BID #14 tabs 06/18/25 prednisone 20 mg tablet 20 mg PO BID #10 tabs 08/06/25 metoclopramide HCl 10 mg tablet 10 mg PO Q6H PRN nausea and 08/09/25 (Reglan) vomiting #15 tabs Allergies Allergy/AdvReac Type Severity Reaction Status Date / Time ondansetron (From Zofran) AdvReac Mild Vomiting Verified 08/09/25 15:38 Review of Systems Status of ROS: Reports: 6 or more systems reviewed and unremarkable except as noted in History and below [facility] Medical History Hypokalemia ?E87.6 - Hypokalemia (ICD-10) Vapes nicotine containing substance ?Z72.0 - Tobacco use (ICD-10) Moderate episode of recurrent major depressive disorder ?F33.1 - Major depressive disorder, recurrent, moderate (ICD-10) Fracture of occipital bone with loss of consciousness ?S02.119A - Unspecified fracture of occiput, initial encounter for closed fracture (ICD-10) ?S06.9X9A - Unspecified intracranial injury with loss of consciousness of unspecified duration, initial encounter (ICD-10) Disruptive mood dysregulation disorder ?F34.81 - Disruptive mood dysregulation disorder (ICD-10) Suicidal ideation (10/04/15) ?R45.851 - Suicidal ideations (ICD-10) 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) ?F06.30 - Mood disorder due to known physiological condition, unspecified (ICD-10) ?S06.9XAS - Unspecified intracranial injury with loss of consciousness status unknown, sequela (ICD-10) Colitis due to Clostridium difficile ?A04.72 - Enterocolitis due to Clostridium difficile, not specified as recurrent (ICD-10) ADHD ?F90.9 - Attention-deficit hyperactivity disorder, unspecified type (ICD-10) Depression ?F32.A - Depression, unspecified (ICD-10) Anxiety ?F41.9 - Anxiety disorder, unspecified (ICD-10) Breast removal, prophylactic ?Z40.01 - Encounter for prophylactic removal of breast (ICD-10) Traumatic brain injury ?S06.9XAA - Unspecified intracranial injury with loss of consciousness status unknown, initial encounter (ICD-10) Surgical History S/P mastectomy, bilateral (~04/2021) ?Z90.13 - Acquired absence of bilateral breasts and nipples (ICD-10) [place] teeth removed ?K08.409 - Partial loss of teeth, unspecified cause, unspecified class (ICD-10) Family History Maternal Grandmother Breast cancer Depression Heart disease Paternal Grandfather Heart disease Thyroid cancer Social History Narrative: Unemployed. Quit smoking cigarettes in 2017, Vapes. Rare alcohol use. Frequent marijuana use. Admitted to nurse that he has done fentanyl and crushed and snorted his Adderall in the past week. What is your current living situation?: I presently have a place to live Problems where you live: no known problems Problems where you live details: n/a In the past 12 months, utilities in danger of being shut off: no In past 12 months, lack of transportation kept you from medical appts, meetings, work, or getting things needed for daily living: no In the past 12 mos, have been you worried that your food would run out before you had money to buy more?: never true In the past 12 mos, the food you bought just didn't last and you didn't have money to buy more?: never true Highest level of school completed/degree received: high school graduate Smoking Status: Current some day smoker Do you use any of these nicotine containing products: E-Cigarettes and Vaping Products Nicotine containing products detail: Frequently Vapes Second hand tobacco smoke exposure: Yes How often do you have a drink containing alcohol: monthly or less How many standard drinks containing alcohol do you have on a typical day: 1 or 2 How often do you have six or more drinks on one occasion: Never AUDIT-C Alcohol total score: 1 Non-prescribed substance use: marijuana (any form) Non-prescribed substance use details: medical marijuana card Caffeine: No (Rarely) How often does anyone, including family, friends and others, physically hurt you: never How often does anyone, including family, friends and others, insult or talk down to you: rarely How often does anyone, including family, friends and others, threaten you with harm: never How often does anyone, including family, friends and others, scream or curse at you: rarely Do you think of yourself as: straight/heterosexual Gender Identity: male service: No Health Related Social Needs: Other personal risk factors, not elsewhere classified (Z91.89) Exam Narrative: Exam Narrative: Pleasant. Calm. NAD. Breathing easily. Lungs appear to be clear. Heart in regular rhythm. Abdomen is soft and mildly tender to palpation across the low abdomen. No peritoneal signs. Postoperative scar right femur. Heavily tattooed in the left lower extremity. Const: Vital Signs, click to edit/add: Vital Signs - 24 hr 08/09/25 15:30 08/09/25 17:43 Temperature 97.6 F Pulse Rate 97 Pulse Rate [Pulse Oximeter] 85 Respiratory Rate 18 16 Blood Pressure 100/69 Blood Pressure [Ri ght Upper Arm] 103/69 Pulse Oximetry 95 96 Oxygen Delivery Me thod Room Air Room Air Documenting provider has reviewed patient's vital signs: yes Course Vital Signs Vital signs: Initial Vital Signs Temperature 97.6 F 08/09/25 15:30 Temperature Source Temporal Artery Scan 08/09/25 15:30 Pulse Rate 85 08/09/25 15:30 Respiratory Rate 18 08/09/25 15:30 Blood Pressure 103/69 08/09/25 15:30 Blood Pressure Mean 80 08/09/25 15:30 Blood Pressure Position Sitting 08/09/25 15:30 Pulse Oximetry 95 08/09/25 15:30 Oxygen Delivery Method Room Air 08/09/25 15:30 Vital Signs Temperature 97.6 F 08/09/25 15:30 Pulse Rate 85 08/09/25 15:30 Respiratory Rate 18 08/09/25 15:30 Blood Pressure 103/69 08/09/25 15:30 Pulse Oximetry 95 08/09/25 15:30 Oxygen Delivery Method Room Air 08/09/25 15:30 Temperature 97.6 F 08/09/25 15:30 Pulse Rate 97 08/09/25 17:43 Respiratory Rate 16 08/09/25 17:43 Blood Pressure 100/69 08/09/25 17:43 Pulse Oximetry 96 08/09/25 17:43 Oxygen Delivery Method Room Air 08/09/25 17:43 Medications Administered Medications: Discontinued Medications Generic Name Dose Route Start Last Admin Trade Name [place] PRN Reason Stop Dose Admin Ketorolac Tromethamine 10 mg 08/09/25 17:21 08/09/25 17:27 Ketorolac 10 Mg Tablet PO 08/09/25 17:22 10 mg ONCE ONE Administration Metoclopramide HCl 10 mg 08/09/25 17:21 08/09/25 17:41 Metoclopramide 10 Mg Tablet PO 08/09/25 17:22 10 mg ONCE ONE Administration Medical Decision Making MDM Narrative Medical decision making narrative: I would suspect primarily vasovagal event. Might be somewhat a pain response as well. Not sure if this vomiting is related to gastritis or possibly to pain. May be ovarian cyst but unlikely. Enteritis? Orthostatic event otherwise? Dysrhythmia? Urinary tract infection? With findings on physical exam I think warrants further investigation Ultrasound has been done verifying unremarkable pelvis. INDICATION: Right mid pelvic pain. Transgender. Takes testosterone. TECHNIQUE: Ultrasound pelvis transvaginal. Real-time sonographic images with spectral and color Doppler imaging of the ovaries were obtained. COMPARISON: August 08, 2022. pelvic ultrasound FINDINGS: Uterus: 7.6 x 4.0 x 3.2 cm. Normal echotexture of the myometrium. No masses. 0.3 centimeter cervical nabothian cysts Endometrium: Endometrial thickness measures 5 mm. No sign of endometrial mass or fluid. Right ovary:3.5 x 2.8 x 2.3 cm with multiple subcentimeter follicles. Left ovary: 3.3 x 2.8 x 2.5 cm with multiple subcentimeter follicles. Normal arterial and venous blood flow is demonstrated in both ovaries. Adnexa: No mass or free fluid. Cul-de-sac: No significant free fluid. IMPRESSION: Negative stable study. No new or acute abnormalities. Dictated by Melchor Dunham MD @ 08/09/2025 4:37:30 PM Will add urinalysis check cbc from urgent care. Treat for nausea. Might be evolving enteritis of some sort. Think that this was a subsequent vasovagal event. Isolated white count consistent possibly with vomiting illness in the setting of a relatively benign abdominal exam. Urinalysis is unconvincing. After Reglan and ketorolac feels a lot better and requesting to go home. See patient discharge plan for further discussion Happy you are feeling better. Sending in more Reglan for you. It sounds like this might be a bit of a stomach bug. Of course if you can't get the vomiting under control should it recur, uncontrolled abdominal pain, passing out, high fever, please return. Medical Records Medical records reviewed: Yes I reviewed the patient's medical records Lab Data Lab results reviewed: Yes I reviewed the patient's lab results Labs: Lab Results 08/09/25 08/09/25 08/09/25 Range/Units 17:34 17:40 18:36 WBC 18.87 H (4.50-11.00) K/uL RBC 5.23 H (4.00-5.20) m/uL Hgb 15.5 (12.0-16.0) gm/dL Hct 47.2 (33.0-51.0) % MCV 90 (80-100) fL MCH 30 (26-34) pg MCHC 33 (32-36) gm/dL RDW Coeff of Adriano 12.2 (11.5-15.5) % Plt Count 277 (140-440) K/uL Neut % (Auto) 79.8 H (42.0-72.0) % Lymph % (Auto) 10.7 L (20-44) % [place] % (Auto) 8.6 (0.0-11.0) % Eos % (Auto) 0.2 (0.0-7.0) % Baso % (Auto) 0.1 (0.0-3.0) % Neut # (Auto) 15.10 H (1.7-7.0) K/uL Lymph # (Auto) 2.00 (0.90-2.90) K/uL [place] # (Auto) 1.60 H (0.00-0.90) K/UL Eos # (Auto) 0.00 (0.00-0.50) K/uL Baso # (Auto) 0.00 (0.00-0.30) K/uL Abs Immat Gran (auto) 0.10 (0.00-0.30) K/uL Imm/Tot Granulo (auto) 0.6 % Sodium 136 (135-149) mmol/L Potassium 3.5 L (3.6-5.1) mmol/L Chloride 102 (96-114) mmol/L Carbon Dioxide 27 (20-32) mmol/L Anion Gap 7 (7-15) mEq/L BUN 13 (5-24) mg/dL Creatinine 0.8 (0.5-1.5) mg/dL Estimated Creat Clear 100.64 Estimated GFR 105 ml/min Glucose 79 (60-115) mg/dL Calcium 9.0 (8.4-10.6) mg/dL Urine Color Yellow (Yellow) Urine Appearance Clear (Clear) Urine pH 7.0 (5.0-8.5) Ur Specific [place] 1.020 (1.000-1.030) Urine Protein Trace A (Negative) Urine Glucose (UA) Negative (Negative) Urine Ketones Negative (Negative) Urine Blood Trace-intact A (Negative) Urine Nitrite Negative (Negative) Urine Bilirubin Negative (Negative) Urine Urobilinogen 1.0 (0.2-1.0) Ur Leukocyte Esterase Negative (Negative) Urine RBC 2-5 A (0-2) Urine WBC 2-5 (0-5) Ur Squamous Epith Cells Few (None-Few) Urine Bacteria Few A (None) SARS-CoV-2 (PCR) (Negative) Influenza Type A (PCR) (Negative) Influenza Type B (PCR) (Negative) Lab Acknowledgement Test Added 08/09/25 Range/Units 18:42 WBC (4.50-11.00) K/uL RBC (4.00-5.20) m/uL Hgb (12.0-16.0) gm/dL Hct (33.0-51.0) % MCV (80-100) fL MCH (26-34) pg MCHC (32-36) gm/dL RDW Coeff of Adriano (11.5-15.5) % Plt Count (140-440) K/uL Neut % (Auto) (42.0-72.0) % Lymph % (Auto) (20-44) % [place] % (Auto) (0.0-11.0) % Eos % (Auto) (0.0-7.0) % Baso % (Auto) (0.0-3.0) % Neut # (Auto) (1.7-7.0) K/uL Lymph # (Auto) (0.90-2.90) K/uL [place] # (Auto) (0.00-0.90) K/UL Eos # (Auto) (0.00-0.50) K/uL Baso # (Auto) (0.00-0.30) K/uL Abs Immat Gran (auto) (0.00-0.30) K/uL Imm/Tot Granulo (auto) % Sodium (135-149) mmol/L Potassium (3.6-5.1) mmol/L Chloride (96-114) mmol/L Carbon Dioxide (20-32) mmol/L Anion Gap (7-15) mEq/L BUN (5-24) mg/dL Creatinine (0.5-1.5) mg/dL Estimated Creat Clear Estimated GFR ml/min Glucose (60-115) mg/dL Calcium (8.4-10.6) mg/dL Urine Color (Yellow) Urine Appearance (Clear) Urine pH (5.0-8.5) Ur Specific [place] (1.000-1.030) Urine Protein (Negative) Urine Glucose (UA) (Negative) Urine Ketones (Negative) Urine Blood (Negative) Urine Nitrite (Negative) Urine Bilirubin (Negative) Urine Urobilinogen (0.2-1.0) Ur Leukocyte Esterase (Negative) Urine RBC (0-2) Urine WBC (0-5) Ur Squamous Epith Cells (None-Few) Urine Bacteria (None) SARS-CoV-2 (PCR) Negative SARS-CoV-2 (Negative) Influenza Type A (PCR) Negative PCR FLU A (Negative) Influenza Type B (PCR) Negative PCR FLU B (Negative) Lab Acknowledgement Discharge Plan Discharge Clinical Impression: Abdominal pain, Vomiting Patient Disposition: Home w/ Parent or Adult Condition: Improved Instructions: Abdominal Pain (ED) Additional Instructions: Happy you are feeling better. Sending in more Reglan for you. It sounds like this might be a bit of a stomach bug. Of course if you can't get the vomiting under control should it recur, uncontrolled abdominal pain, passing out, high fever, please return. Prescriptions: New metoclopramide HCl [Reglan] 10 mg tablet 10 mg PO Q6H PRN (Reason: nausea and vomiting) Qty: 15 0RF No Action hydroxyzine HCl 25 mg tablet 12.5 - 50 mg PO QPM PRN albuterol sulfate 90 mcg/actuation HFA aerosol inhaler 2 puff inhalation Q4-6H PRN (Reason: shortness of breath or wheezing) Qty: 8.5 3RF testosterone enanthate 200 mg/mL oil 80 mg subcut Q7D Rx Instructions: FRIDAYS ipratropium-albuterol 0.5 mg-3 mg(2.5 mg base)/3 mL solution for nebulization 3 ml inhalation Q6H PRNQty: 90 1RF ibuprofen 200 mg PO PRN aripiprazole 15 mg tablet 15 mg PO DAILY dextroamphetamine-amphetamine 15 mg tablet 1 tab PO DAILY dextroamphetamine-amphetamine 10 mg capsule,extended release 24hr 1 cap PO BID Combivent Respimat 20-100 mcg/actuation mist 1 puff inhalation TID sertraline 100 mg tablet 150 mg PO DAILY levalbuterol tartrate 45 mcg/actuation HFA aerosol inhaler 2 puff INHALATION Q4H PRN (Reason: wheezing) doxycycline hyclate 100 mg tablet 100 mg PO BID Qty: 14 0RF acetaminophen 500 mg tablet 1,000 mg PO Q6H buspirone 15 mg tablet 15 mg PO BID prednisone 20 mg tablet 20 mg PO BID Qty: 10 0RF Follow Up/Referrals: Gisela Zuñiga DO [Primary Care Provider, Family Practice] Stand Alone Forms: [facility] Info Instructions
[2025-08-09] MEDS: KETOROLAC 10 MG TABLET PO (17:27)
[2025-08-09] MEDS: METOCLOPRAMIDE 10 MG TABLET PO (17:41)
[2025-08-09 17:43] VITALS: BP 100/69; PULSE 97; RESP 16; O2SAT 96
[2025-08-09 18:08] LABS: Hematocrit* 47.2 % (33.0-51.0); Hemoglobin* 15.5 gm/dL (12.0-16.0); Immature Granulocytes Pct Auto 0.6 %; Mean Corpuscular HGB Conc 33 gm/dL (32-36); Mean Corpuscular Hemoglobin 30 pg (26-34); Mean Corpuscular Volume 90 fL (80-100); RDW Coefficient of Variation % 12.2 % (11.5-15.5); Red Blood Count* 5.23 m/uL (4.00-5.20); White Blood Count* 18.87 K/uL (4.50-11.00)
[2025-08-09 18:15] LABS: Appearance Urine Clear (Clear)
[2025-08-09 18:23] LABS: Immature Granulocytes Abs Auto 0.10 K/uL (0.00-0.30); Lymphocytes Absolute Auto 2.00 K/uL (0.90-2.90); Slide Review Reflex No
[2025-08-09 18:43] LABS: Chloride* 102 mmol/L (96-114)
[2025-08-09 18:44] LABS: Potassium* 3.5 mmol/L (3.6-5.1); Sodium* 136 mmol/L (135-149)
[2025-08-09 18:47] LABS: Anion Gap 7 mEq/L (7-15); Blood Urea Nitrogen* 13 mg/dL (5-24); Calcium* 9.0 mg/dL (8.4-10.6); Carbon Dioxide* 27 mmol/L (20-32); Creatinine* 0.8 mg/dL (0.5-1.5); Est. Creatinine Clearance* 100.64; Estimated Glomerular Filt Rate 105 ml/min; Glucose* 79 mg/dL (60-115)
[2025-08-09 19:40] LABS: PCR FLU A Negative PCR FLU A (Negative); PCR FLU B Negative PCR FLU B (Negative); SARS PCR* Negative SARS-CoV-2 (Negative)
== END 2025-08-09 18:56 | disposition home or self-care (01) ==
PROVIDERS: Emergency Provider Family Medicine; PCP Family Medicine
DX: R10.31 Right lower quadrant pain (principal); R11.2 Nausea with vomiting, unspecified; F64.0 Transsexualism
CPT/HCPCS: 36415; 76830; 80048; 81001; 85025; 87086; 87636; 93976; 99284; 99285; A9270